=== PATIENT | female | born 1960 | race Caucasian/White ===

== ENCOUNTER 2016-06-04 17:08 | Inpatient (IN) | payer BC ==
[~2016-06-04] VITALS: Ht 157.5 cm; Wt 49.9 kg
[~2016-06-04 17:08] MED LIST: CALCTAB8 PO; CYAN1000P IM; DICY10 PO; HYDR50TA94 PO; IMIP25TA PO; IMIT100T PO; MACR100C2 PO; MAGN400T2 PO; PANT40TA3 PO; POTA-163 PO; THIA200P IM; VALIUM; VITA100064 PO; VITA400C2 PO; ZOLP10TA3 PO; ZYPR5TAB PO
[2016-06-04 17:14] VITALS: BP_SYST 15; BP_SYST 154; BP_DIAS 104; PULSE 118; RESP 14; TEMP 98.8; O2SAT 91
[2016-06-04] MEDS ORDERED: SODIUM CHLOR 0.9% 1000 ML INJ 1,000 ML IV ONE ×3 (18:00→22:30)
--- NOTE | 2016-06-04 18:24 | RADRPT ---
EXAM DATE/TIME: 06/04/2016 18:06 [facility] COMPARISON: CHEST SINGLE AP, April 05, 2016, 9:58. INDICATIONS : General Weakness and Confusion. MEDICAL HISTORY : Cerebrovascular disease. Seizures. Cardiovascular disease. Kidney cancer. SURGICAL HISTORY : Appendectomy. Cholecystectomy. Hysterectomy. right nephrectomy. gastrectomy ENCOUNTER: Initial ACUITY: 1 day PAIN SCORE: 0/10 LOCATION: Bilateral chest FINDINGS: PA and lateral views of the chest demonstrate the lungs to be symmetrically aerated without evidence of mass, infiltrate or effusion. The cardiomediastinal contours are unremarkable. Osseous structure s are intact. CONCLUSION: No acute cardiopulmonary disease demonstrated. Donato Li MD on June 04, 2016 at 18:22 Board Certified Radiologist. This report was verified electronically.
--- NOTE | 2016-06-04 18:30 | RADRPT ---
EXAM DATE/TIME: 06/04/2016 18:17 [facility] COMPARISON: No previous studies available for comparison. INDICATIONS : Generalized weakness with altered mental status today. RADIATION DOSE: 32.39 CTDIvol (mGy) MEDICAL HISTORY : Cerebrovascular disease. Seizures. SURGICAL HISTORY : None. ENCOUNTER: Initial ACUITY: 1 day PAIN SCALE: 0/10 LOCATION: cranial TECHNIQUE: Multiple contiguous axial images were obtained of the head. Using automated exposure control and adj ustment of the mA and/or kV according to patient size, radiation dose was kept as low as reasonably a chievable to obtain optimal diagnostic quality images. FINDINGS: CEREBRUM: The ventricles are normal for age. No evidence of midline shift, mass lesion, hemorrhage or acute in farction. No extra-axial fluid collections are seen. POSTERIOR FOSSA: The cerebellum and brainstem are intact. The 4th ventricle is midline. The cerebellopontine angle i s unremarkable. EXTRACRANIAL: The visualized portion of the orbits is intact. SKULL: The calvaria is intact. No evidence of skull fracture. CONCLUSION: Negative noncontrast head CT. Donato Li MD on June 04, 2016 at 18:28 Board Certified Radiologist. This report was verified electronically.
[2016-06-04] MEDS ORDERED: RIZA10TA4 SL (18:48)
[2016-06-04] MEDS ORDERED: DILA4TAB2 PO (18:48)
[2016-06-04] MEDS ORDERED: BUSP1TAB PO (18:48)
[2016-06-04] MEDS ORDERED: CIPR-9 PO (18:48)
[2016-06-04] MEDS ORDERED: BUTA1CAP PO (18:48)
[2016-06-04] MEDS ORDERED: FENT25DI T-DERMAL (18:48)
[2016-06-04] MEDS ORDERED: XIFA550T4 PO (18:48)
[2016-06-04] MEDS ORDERED: DIAZ10 PO (18:48)
[2016-06-04 19:14] LABS: AUTOMATED NEUTROPHIL # 10.6 TH/MM3 (1.8-7.7); BASOPHIL % 0.1 % (0.0-2.0); HEMATOCRIT 43.3 % (35.0-46.0); HEMO FLAGS DIFF FINAL; LYMPH % 8.1 % (9.0-44.0); MEAN CELL VOLUME 89.8 FL (80.0-100.0); MEAN CORPUSCULAR HEMOGLOBIN 28.4 PG (27.0-34.0); MEAN CORPUSCULAR HGB CONC 31.6 % (32.0-36.0); MONO % 6.6 % (0.0-8.0); NEUT % 85.2 % (16.0-70.0); PLATELET COUNT 164 TH/MM3 (150-450); RED BLOOD COUNT 4.82 MIL/MM3 (4.00-5.30); RED CELL DISTRIBUTION WIDTH 18.9 % (11.6-17.2); WHITE BLOOD COUNT 12.4 TH/MM3 (4.0-11.0)
--- NOTE | 2016-06-04 19:22 | PD ---
HPI Chief Complaint: GI Complaint Time Seen by Provider: 17:37 Travel History International Travel<30 days: No Contact w/Intl Traveler<30days: No Traveled to known affect area: No History of Present Illness HPI Patient is a 56-year-old female who has been here multiple times for abdominal pain who comes in saying she is confused. Patient was here May 30, , for abdominal pain, asking for Dilaudid. She was discharged home each time without a prescription for Dilaudid. She had a CT scan performed on May 30 that showed no acute abnormalities. She had labs done on each visit that showed no acute abnormalities. Patient keeps saying she is confused and does not provide any other history. She does say Dilaudid a few times. PFSH Past Medical History Hx Anticoagulant Therapy: No Asthma: No Blood Disorders: No Anxiety: Yes Heart Rhythm Problems: No Cancer: Yes (kidney) Cardiovascular Problems: Yes ([place] ) High Cholesterol: No Chemotherapy: No Chest Pain: No Congestive Heart Failure: No COPD: No Cerebrovascular Accident: Yes Diabetes: No Diminished Hearing: No Endocrine: No Gastrointestinal Disorders: Yes GERD: Yes Genitourinary: Yes (RIGHT NEPHRECTOMY) Headaches: Yes Hypertension: No Immune Disorder: No Implanted Vascular Access Dvce: No Musculoskeletal: No Neurologic: No Psychiatric: No Reproductive: No Respiratory: No Immunizations Current: Yes Myocardial Infarction: Yes (2006) Pneumonia: Yes Radiation Therapy: No Seizures: Yes Sleep Apnea: No Thyroid Disease: No Tetanus Vaccination: < 5 Years Influenza Vaccination: Yes Menopausal: Yes : 1 Para: 1 Miscarriage: 0 : 0 Ectopic : No Ovarian Cysts: No Dilation and Curettage (D&C): Yes Tubal Ligation: Yes Past Surgical History Abdominal Surgery: Yes (total gastrectomy w/pouch 2002, hernia repair) Appendectomy: Yes Cardiac Surgery: Yes (pt states an occulator was placed in her heart 2005) Cholecystectomy: Yes Gynecologic Surgery: Yes (hysterectomy) Hysterectomy: Yes Tonsillectomy: Yes Other Surgery: Yes (right kidney removed) Social History Alcohol Use: No Tobacco Use: No Substance Use: No Allergies-Medications (Allergen,Severity, Reaction): Coded Allergies: Compazine (Verified Allergy, Severe, SOB, 06/04/16) Gadolinium Derivatives (Verified Allergy, Severe, RESPIRATORY DISTRESS, ) Lobster (Verified Allergy, Severe, Anaphylaxis, 06/04/16) Morphine (Verified Allergy, Severe, Hives, 06/04/16) PT HAVING HIVES AND ITCHING TO ARM ABOVE IV SITE AFTER ADMINISTRATION OF MORPHINE Phenergan (Verified Allergy, Severe, SOB, 06/04/16) Reglan (Verified Allergy, Severe, SOB, 06/04/16) Toradol (Verified Allergy, Severe, Shortness of Breath, 06/04/16) Zofran (Verified Allergy, Severe, SOB, 06/04/16) Penicillin (Verified Allergy, Mild, RASH, 06/04/16) Sulfa (Verified Allergy, Mild, RASH, 06/04/16) *MDRO Multi-Drug Resistant Organism (Verified Adverse Reaction, Unknown, 06/04/16) 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) Reported Meds & Prescriptions Reported Meds & Active Scripts Active Macrobid (Nitrofurantoin Monoh/Nitrofur Macro) 100 Mg Cap 100 Mg PO BID 7 Days Reported Buspirone (Buspirone HCl) 7.5 Mg Tab 7.5 Mg PO BID Xifaxan (Rifaximin) 550 Mg Tab 550 Mg PO Q8HR Valium (Diazepam) 10 Mg Tab 10 Mg PO TID Fioricet (Vkzvtgwftl-Jramsufwnahjt-Hvjbqkva) 50-300-40 Mg Cap 1 Cap PO Q4H PRN Cipro (Ciprofloxacin HCl) 500 Mg Tab 500 Mg PO BID Dilaudid (Hydromorphone HCl) 4 Mg Tab 4 Mg PO 5 TIMES A DAY Fentanyl Patch 72 HR (Fentanyl) 25 Mcg/Hr Patch 25 Mcg T-DERMAL Q72H Rizatriptan Odt (Rizatriptan Benzoate) 10 Mg Tab 10 Mg SL ONCE PRN Zyprexa (Olanzapine) 5 Mg Tab 5 Mg PO BID Cyanocobalamin Inj (Cyanocobalamin) 1,000 Mcg/Ml Inj 1,000 Mcg IM Q30D Zolpidem (Zolpidem Tartrate) 10 Mg Tab 10 Mg PO HS PRN Hydroxyzine HCl 50 Mg Tab 50 Mg PO Q8HR PRN Bentyl (Dicyclomine HCl) 10 Mg Cap 10 Mg PO TID PRN Imipramine HCL (Imipramine HCl) 25 Mg Tab 25 Mg PO HS Review of Systems ROS Limitations: Clinical Condition, Altered Mental Status Physical Exam Narrative GENERAL: Awake and alert, answers some questions. SKIN: Warm and dry. HEAD: Atraumatic. Normocephalic. EYES: Pupils equal and round. No scleral icterus. Extraocular movements intact. ENT: Mucous membranes pink and moist. NECK: Trachea midline. No JVD. CARDIOVASCULAR: Regular rate and rhythm. No murmur appreciated. RESPIRATORY: No accessory muscle use. Clear to auscultation. Breath sounds equal bilaterally. GASTROINTESTINAL: Abdomen soft, nondistended. Diffuse tenderness to palpation. MUSCULOSKELETAL: No obvious deformities. No clubbing. No cyanosis. No edema. NEUROLOGICAL: Awake and alert. No obvious cranial nerve deficits. Motor grossly within normal limits. Speaking slowly, does not respond appropriately to questions. PSYCHIATRIC: Appropriate mood and affect; insight and judgment normal. Data Data Last Documented VS Vital Signs Date Time Temp Pulse Resp B/P Pulse Ox O2 Delivery O2 Flow Rate FiO2 06/04/16 19:41 110 16 159/103 94 Room Air 06/04/16 17:14 98.8 Orders Complete Blood Count With Diff (06/04/16 17:51) Comprehensive Metabolic Panel (06/04/16 17:51) Urinalysis - C+S If Indicated (06/04/16 17:51) Lactic Acid (06/04/16 17:51) Ammonia (06/04/16 17:51) Electrocardiogram (06/04/16 ) Troponin I (06/04/16 17:51) Cath For Specimen (06/04/16 17:51) Ct Brain W/O Iv Contrast(Rout) (06/04/16 ) Chest, Pa & Lat (06/04/16 ) Sodium Chlor 0.9% 1000 Ml Inj (Ns 1000 M (06/04/16 18:00) Aspirin Chew (Aspirin Chew) (06/04/16 19:45) Heparin Infusion MIGUEL.Q1H (06/04/16 19:41) Heparin Inj (Heparin Inj) (06/04/16 19:45) Heparin Inj (Heparin Inj) (06/05/16 01:45) Heparin-D5w Inj (Heparin-D5w Inj) (06/04/16 19:45) Act Partial Throm Time (Ptt) (06/04/16 19:41) Prothrombin Time / Inr (Pt) (06/04/16 19:41) Cbc No Diff, Includes Plts (06/07/16 06:00) Act Partial Throm Time (Ptt) (06/05/16 02:41) Occult Blood (Hemoccult) Stool (06/04/16 19:41) Sodium Chlor 0.9% 1000 Ml Inj (Ns 1000 M (06/04/16 19:45) Heparin Inj (Heparin Inj) (06/05/16 01:45) Labs Laboratory Tests Test 06/04/16 19:00 White Blood Count 12.4 TH/MM3 Red Blood Count 4.82 MIL/MM3 Hemoglobin 13.7 GM/DL Hematocrit 43.3 % Mean Corpuscular Volume 89.8 FL Mean Corpuscular Hemoglobin 28.4 PG Mean Corpuscular Hemoglobin 31.6 % Concent Red Cell Distribution Width 18.9 % Platelet Count 164 TH/MM3 Mean Platelet Volume 9.2 FL Neutrophils (%) (Auto) 85.2 % Lymphocytes (%) (Auto) 8.1 % Monocytes (%) (Auto) 6.6 % Eosinophils (%) (Auto) 0.0 % Basophils (%) (Auto) 0.1 % Neutrophils # (Auto) 10.6 TH/MM3 Lymphocytes # (Auto) 1.0 TH/MM3 Monocytes # (Auto) 0.8 TH/MM3 Eosinophils # (Auto) 0.0 TH/MM3 Basophils # (Auto) 0.0 TH/MM3 CBC Comment DIFF FINAL Differential Comment Sodium Level 136 MEQ/L Potassium Level 4.6 MEQ/L Chloride Level 100 MEQ/L Carbon Dioxide Level 26.5 MEQ/L Anion Gap 10 MEQ/L Blood Urea Nitrogen 15 MG/DL Creatinine 1.21 MG/DL Estimat Glomerular Filtration 46 ML/MIN Rate Random Glucose 131 MG/DL Lactic Acid Level 2.4 mmol/L Calcium Level 8.8 MG/DL Total Bilirubin 0.2 MG/DL Aspartate Amino Transf 951 U/L (AST/SGOT) Alanine Aminotransferase 507 U/L (ALT/SGPT) Alkaline Phosphatase 120 U/L Ammonia 16 MCMOL/L Troponin I 0.91 NG/ML Total Protein 7.5 GM/DL Albumin 3.8 GM/DL [facility] Medical Decision Making Medical Screen Exam Complete: Yes Emergency Medical Condition: Yes Medical Record Reviewed: Yes Interpretation(s) ECG shows sinus tach at 109, left bundle branch block. Differential Diagnosis Sepsis versus ACS versus ICH versus drug-seeking behavior Narrative Course Patient is a 56-year-old female who says she is very confused. Exam shows no gross motor abnormalities, she is speaking slowly. IV established, labs sent. CT of the head performed shows no acute abnormalities. Chest x-ray shows no acute abnormalities. Patient given IV fluids. Troponin is 0.91. AST and ALT are elevated to 951 and 507. These are very different then 5 days ago. Patient started on Aspirin and Heparin. LBBB is old from March. Patient to be admitted for further management of NSTEMI and shock liver. Diagnosis Primary Impression: NSTEMI (non-ST elevated myocardial infarction) Additional Impression: Shock liver Admitting Information Admitting Physician Requests: Admit Condition: Stable Meera Taylor MD Jun 04, 2016 19:22
[2016-06-04 19:24] LABS: ANION GAP 10 MEQ/L (5-15); AST (GOT) 951 U/L (15-37); BICARBONATE 26.5 MEQ/L (21.0-32.0); BLOOD UREA NITROGEN 15 MG/DL (7-18); CHLORIDE 100 MEQ/L (98-107); GLOMERULAR FILTRATION RATE 46 ML/MIN (>89); POTASSIUM 4.6 MEQ/L (3.5-5.1); SODIUM (NA) 136 MEQ/L (136-145)
[2016-06-04 19:28] LABS: ALKALINE PHOSPHATASE 120 U/L (45-117); ALT (GPT) 507 U/L (10-53); TOTAL BILIRUBIN ADULT 0.2 MG/DL (0.2-1.0)
[2016-06-04 19:41] VITALS: BP 159/103; PULSE 110; RESP 16; O2SAT 94
[2016-06-04] MEDS ORDERED: HEPARIN SODIUM - IV 10,000 UNITS/10 ML VIAL IV ONE (19:45)
[2016-06-04] MEDS ORDERED: ASPIRIN 81 MG CHEW TAB CHEW ONE (19:45)
[2016-06-04 20:30] VITALS: BP 147/87; PULSE 110; RESP 18; O2SAT 96
[2016-06-04] MEDS ORDERED: VANCOMYCIN INJ 1,250 MG in SODIUM CHLOR 0.9% 250 ML INJ 250 ML IV STA (20:31)
[2016-06-04] MEDS ORDERED: metroNIDAZOLE 500 MG INJ 100 ML IV STA (20:31)
[2016-06-04 20:41] LABS: APTT (PATIENT) 25.2 SEC (24.3-30.1); INTERNATIONAL NORMALIZED RATIO 1.1 RATIO; PROTHROMBIN TIME - PATIENT 11.8 SEC (9.8-11.6)
[2016-06-04] MEDS ORDERED: AZTREONAM INJ 2,000 MG in SODIUM CHLORIDE 0.9% INJ 100 ML IV ONE (20:45)
[2016-06-04] MEDS ORDERED: IOHEXOL 350 MG/ML 10 ML VIAL (for RAD DIAG) IV ONE (21:05)
--- NOTE | 2016-06-04 21:29 | RADRPT ---
EXAM DATE/TIME: 06/04/2016 21:03 [facility] COMPARISON: CT ABDOMEN & PELVIS W/O CONTRAST, May 30, 2016, 13:06. CT ABDOMEN & PELVIS W CONTRAST, March 29, 2016, 11:14. INDICATIONS : General weakness and abdominal pain. IV CONTRAST: 80 cc Omnipaque 300 (iohexol) IV ORAL CONTRAST: No oral contrast ingested. RADIATION DOSE: 7.02 CTDIvol (mGy) MEDICAL HISTORY : Kidney cancer. SURGICAL HISTORY : Appendectomy. Cholecystectomy.Hysterectomy.Gastrectomy with pouch. ENCOUNTER: Initial ACUITY: 3 weeks PAIN SCALE: 5/10 LOCATION: Bilateral lower quadrant TECHNIQUE: Volumetric scanning of the abdomen and pelvis was performed. Using automated exposure control and ad justment of the mA and/or kV according to patient size, radiation dose was kept as low as reasonably achievable to obtain optimal diagnostic quality images. FINDINGS: The liver is diffusely fatty infiltrated. Spleen, pancreas, adrenal glands and left kidney are within normal limits. Previous right nephrectomy. No mass demonstrated. No lymphadenopathy. No obstruction or acute inflammatory changes are seen of the bowel loops. There is been previous lala l surgery. At least 2 anastomotic staple lines are seen in the left midabdomen. Mildly heterogeneous but mainly low attenuation thickening has developed of the right gluteus medius muscle, for example series 2 image 66 and series 601 image 67. This is entirely new over the past 5 d ays and presumably would be posttraumatic, such as a strain the visualized osseous structures are int act. Patchy consolidation seen of the lung bases, left more so than right and both sides modestly worse in the interim. CONCLUSION: 1. No obstruction or acute inflammatory changes demonstrated. 2. Liver is diffusely fatty infiltrated. 3. Previous right nephrectomy. No recurrent mass. No lymphadenopathy. 4. Thickened gluteus minimus muscle belly, new. This is nonspecific but appearance and short term int erim development would support likelihood of a strain. 5. Patchy consolidation of both lung bases worsening, especially on the left. Donato Li MD on June 04, 2016 at 21:21 Board Certified Radiologist. This report was verified electronically.
[2016-06-04 21:40] VITALS: BP 158/99; PULSE 100; RESP 18; O2SAT 97
[2016-06-04] MEDS: HEPARIN-D5W INJ 250 ML IV SCH (21:42)
[2016-06-04 22:15] LABS: BLOOD, URINE MOD (NEG); COMMENT (UR) CATH-CULT NOT IND; CULTURE IF INDICATED CATH CULTURE NOT IND; GLUCOSE,URINE NEG (NEG); KETONE, URINE 40 mg/dL (NEG); MUCUS URINE FEW /lpf (OCC); NITRITE,URINE NEG (NEG); SQUAMOUS EPITHELIAL CELL URINE 1 /hpf (0-5); URINE COLOR YELLOW (YELLW/STRAW)
--- NOTE | 2016-06-04 22:16 | PD ---
Data Data Last Documented VS Vital Signs Date Time Temp Pulse Resp B/P Pulse Ox O2 Delivery O2 Flow Rate FiO2 06/04/16 19:41 110 16 159/103 94 Room Air 06/04/16 17:14 98.8 Orders Complete Blood Count With Diff (06/04/16 17:51) Comprehensive Metabolic Panel (06/04/16 17:51) Urinalysis - C+S If Indicated (06/04/16 17:51) Lactic Acid (06/04/16 17:51) Ammonia (06/04/16 17:51) Electrocardiogram (06/04/16 ) Troponin I (06/04/16 17:51) Cath For Specimen (06/04/16 17:51) Ct Brain W/O Iv Contrast(Rout) (06/04/16 ) Chest, Pa & Lat (06/04/16 ) Sodium Chlor 0.9% 1000 Ml Inj (Ns 1000 M (06/04/16 18:00) Aspirin Chew (Aspirin Chew) (06/04/16 19:45) Heparin Infusion MIGUEL.Q1H (06/04/16 19:41) Heparin Inj (Heparin Inj) (06/04/16 19:45) Heparin Inj (Heparin Inj) (06/05/16 01:45) Heparin-D5w Inj (Heparin-D5w Inj) (06/04/16 19:45) Act Partial Throm Time (Ptt) (06/04/16 19:41) Prothrombin Time / Inr (Pt) (06/04/16 19:41) Cbc No Diff, Includes Plts (06/07/16 06:00) Act Partial Throm Time (Ptt) (06/05/16 02:41) Occult Blood (Hemoccult) Stool (06/04/16 19:41) Sodium Chlor 0.9% 1000 Ml Inj (Ns 1000 M (06/04/16 19:45) Heparin Inj (Heparin Inj) (06/05/16 01:45) Ct Abd/Pel W Iv Contrast(Rout) (06/04/16 20:14) Vancomycin Inj (Vancomycin Inj) (06/04/16 20:31) Metronidazole 500 Mg Inj (Flagyl 500 Mg (06/04/16 20:31) Aztreonam Inj (Azactam Inj) (06/04/16 20:45) Iohexol 350 Inj (Omnipaque 350 Inj) (06/04/16 21:05) Sodium Chlor 0.9% 1000 Ml Inj (Ns 1000 M (06/04/16 22:30) Vital Signs (Adult) Q4H (06/04/16 22:35) Activity Bed Rest With Brp (06/04/16 22:35) ^ [employer] Developer / Telemetry .CONTINUOUS (06/04/16 22:35) Sodium Chlor 0.9% 1000 Ml Inj (Ns 1000 M (06/04/16 22:35) Sodium Chloride 0.9% Flush (Ns Flush) (06/04/16 22:45) Sodium Chloride 0.9% Flush (Ns Flush) (06/05/16 09:00) Basic Metabolic Panel (Bmp) (06/05/16 06:00) Complete Blood Count With Diff (06/05/16 06:00) Creatine Kinase (Cpk) (06/05/16 01:00) Creatine Kinase (Cpk) (06/05/16 07:00) Troponin I (06/05/16 01:00) Troponin I (06/05/16 07:00) Hepatic Functional Panel (06/05/16 06:00) Electrocardiogram (06/05/16 01:00) Electrocardiogram (06/05/16 07:00) Naloxone Inj (Narcan Inj) (06/04/16 22:45) Diet Clear Liquid (06/05/16 Breakfast) Aztreonam Inj (Azactam Inj) (06/05/16 10:00) Consult Gastroenterology (06/04/16 ) Lipid Profile (06/05/16 06:00) Hepatitis Profile (06/05/16 01:00) Aspirin Ec (Ecotrin Ec) (06/05/16 09:00) Pantoprazole Inj (Protonix Inj) (06/04/16 23:00) Rifaximin (Xifaxan) (06/05/16 06:00) Lactic Acid (06/05/16 06:00) Metronidazole 500 Mg Inj (Flagyl 500 Mg (06/05/16 06:00) Tylenol (Acetaminophen) (06/04/16 22:54) Alcohol (Ethanol) (06/04/16 22:54) Drug Screen, Random Urine (06/04/16 22:54) (Hub Use Only)Inp Phy Cons/Ref (06/04/16 ) Admit Order (Ed Use Only) (06/04/16 23:00) Labs Laboratory Tests Test 06/04/16 06/04/16 06/04/16 19:00 19:50 21:30 White Blood Count 12.4 TH/MM3 Red Blood Count 4.82 MIL/MM3 Hemoglobin 13.7 GM/DL Hematocrit 43.3 % Mean Corpuscular Volume 89.8 FL Mean Corpuscular Hemoglobin 28.4 PG Mean Corpuscular Hemoglobin 31.6 % Concent Red Cell Distribution Width 18.9 % Platelet Count 164 TH/MM3 Mean Platelet Volume 9.2 FL Neutrophils (%) (Auto) 85.2 % Lymphocytes (%) (Auto) 8.1 % Monocytes (%) (Auto) 6.6 % Eosinophils (%) (Auto) 0.0 % Basophils (%) (Auto) 0.1 % Neutrophils # (Auto) 10.6 TH/MM3 Lymphocytes # (Auto) 1.0 TH/MM3 Monocytes # (Auto) 0.8 TH/MM3 Eosinophils # (Auto) 0.0 TH/MM3 Basophils # (Auto) 0.0 TH/MM3 CBC Comment DIFF FINAL Differential Comment Sodium Level 136 MEQ/L Potassium Level 4.6 MEQ/L Chloride Level 100 MEQ/L Carbon Dioxide Level 26.5 MEQ/L Anion Gap 10 MEQ/L Blood Urea Nitrogen 15 MG/DL Creatinine 1.21 MG/DL Estimat Glomerular Filtration 46 ML/MIN Rate Random Glucose 131 MG/DL Lactic Acid Level 2.4 mmol/L Calcium Level 8.8 MG/DL Total Bilirubin 0.2 MG/DL Aspartate Amino Transf 951 U/L (AST/SGOT) Alanine Aminotransferase 507 U/L (ALT/SGPT) Alkaline Phosphatase 120 U/L Ammonia 16 MCMOL/L Troponin I 0.91 NG/ML Total Protein 7.5 GM/DL Albumin 3.8 GM/DL Prothrombin Time 11.8 SEC Prothromb Time International 1.1 RATIO Ratio Activated Partial 25.2 SEC Thromboplast Time Urine Color YELLOW Urine Turbidity CLEAR Urine pH 6.0 Urine Specific Victor 1.033 Urine Protein 30 mg/dL Urine Glucose (UA) NEG mg/dL Urine Ketones 40 mg/dL Urine Occult Blood MOD Urine Nitrite NEG Urine Bilirubin NEG Urine Urobilinogen LESS THAN 2.0 MG/DL Urine Leukocyte Esterase NEG Urine RBC 10 /hpf Urine WBC 1 /hpf Urine Squamous Epithelial 1 /hpf Cells Urine Mucus FEW /lpf Microscopic Urinalysis Comment CATH-CULT NOT IND Urine Opiates Screen POS Urine Barbiturates Screen POS Urine Amphetamines Screen NEG Urine Benzodiazepines Screen POS Urine Cocaine Screen NEG Urine Cannabinoids Screen NEG MDM Medical Record Reviewed: Yes Supervised Visit with AGNES: No Narrative Course CBC & BMP Diagram 06/04/16 19:00 Neutrophils 85% Toxicology positive for opiates barbiturates and benzodiazepines AST 951 ALT of 507 Alkaline phosphatase 120 Lactic acid 2.4 Troponin 0.19 Ammonia 16 EKG reveals a sinus tachycardia with Left bundle branch block pattern similar to prior with a rate of 109 Last 24 hours Impressions Abdomen/Pelvis CT 06/04/162013 Signed Impressions: Service Date/Time: May 21:03 - CONCLUSION: 1. No obstruction or acute inflammatory changes demonstrated. 2. Liver is diffusely fatty infiltrated. 3. Previous right nephrectomy. No recurrent mass. No lymphadenopathy. 4. Thickened gluteus minimus muscle belly, new. This is nonspecific but appearance and short term interim development would support likelihood of a strain. 5. Patchy consolidation of both lung bases worsening, especially on the left. Donato Li MD Head CT 06/04/16 0000 Signed Impressions: Service Date/Time: May 18:17 - CONCLUSION: Negative noncontrast head CT. Donato Li MD Chest X-Ray 06/04/16 0000 Signed Impressions: Service Date/Time: May 18:06 - CONCLUSION: No acute cardiopulmonary disease demonstrated. Donato Li MD The case was discussed with the GI Dr Bolton at regarding markedly elevated liver enzymes. Consideration is given to shock liver. The patient does have infiltrates at the bases on CT. Flagyl Vanco and aztreonam given in setting of liver disease with leukocytosis and abdominal pain. Case discussed with Oralia Levine of [facility]. Diagnosis Primary Impression: NSTEMI (non-ST elevated myocardial infarction) Additional Impression: Shock liver Admitting Information Admitting Physician Requests: Admit Condition: Stable Noble Long MD Jun 04, 2016 22:16
[2016-06-04] MEDS ORDERED: NALOXONE HCL 0.4 MG/ML AMP IV PRN (22:45)
[2016-06-04] MEDS ORDERED: SODIUM CHLORIDE 0.9% FLUSH 5 ML FLUSH FLUSH PRN (22:45)
[2016-06-04] MEDS: SODIUM CHLOR 0.9% 1000 ML INJ 1,000 ML IV SCH (23:07)
[2016-06-04 23:16] VITALS: BP 153/93; PULSE 104; RESP 18; O2SAT 97
[2016-06-04 23:50] LABS: AMPHETAMINE, URINE NEG (NEG); BARBITURATES, URINE POS (NEG); COCAINE, URINE NEG (NEG)
[2016-06-05] VITALS (9 sets, daily range): BP systolic 139–158; BP diastolic 85–95; PULSE 89–102; RESP 16–18; TEMP 97.8–99.4; O2SAT 93–99
[2016-06-05] MEDS: PANTOPRAZOLE SODIUM 40 MG VIAL IV PUSH SCH (00:11)
[2016-06-05] MEDS ORDERED: HEPARIN SODIUM - IV 10,000 UNITS/10 ML VIAL IV PRN ×2 (01:45)
[2016-06-05 02:36] LABS: APTT (PATIENT) 42.5 SEC (24.3-30.1)
[2016-06-05] MEDS: SODIUM CHLOR 0.9% 1000 ML INJ 1,000 ML IV SCH ×3 (02:54→18:08)
[2016-06-05 04:23] LABS: CKMB 5.7 NG/ML (0.5-3.6)
[2016-06-05] MEDS ORDERED: HYDROmorphone HCL PF 1 MG/ML VIAL IV ONE (05:00)
[2016-06-05] MEDS: metroNIDAZOLE 500 MG INJ 100 ML IV SCH ×3 (05:23→22:12)
[2016-06-05] MEDS: RIFAXIMIN 550 MG TAB PO SCH ×3 (05:23→22:15)
[2016-06-05 05:43] LABS: AUTOMATED NEUTROPHIL # 9.1 TH/MM3 (1.8-7.7); BASOPHIL # 0.1 TH/MM3 (0-0.2); BASOPHIL % 0.4 % (0.0-2.0); EOSINOPHIL % 0.1 % (0.0-4.0); HEMATOCRIT 33.8 % (35.0-46.0); HEMO FLAGS DIFF FINAL; LYMPH % 16.5 % (9.0-44.0); LYMPHOCYTE # 1.9 TH/MM3 (1.0-4.8); MEAN CORPUSCULAR HEMOGLOBIN 28.5 PG (27.0-34.0); MEAN CORPUSCULAR HGB CONC 32.4 % (32.0-36.0); MONO % 5.1 % (0.0-8.0); NEUT % 77.9 % (16.0-70.0); PLATELET COUNT 129 TH/MM3 (150-450); RED BLOOD COUNT 3.84 MIL/MM3 (4.00-5.30); RED CELL DISTRIBUTION WIDTH 18.8 % (11.6-17.2); WHITE BLOOD COUNT 11.6 TH/MM3 (4.0-11.0)
[2016-06-05 06:20] LABS: BICARBONATE 25.2 MEQ/L (21.0-32.0); INDIRECT BILIRUBIN 0.2 MG/DL (0.0-0.8); POTASSIUM 3.6 MEQ/L (3.5-5.1); TOTAL BILIRUBIN ADULT 0.3 MG/DL (0.2-1.0)
[2016-06-05 08:10] LABS: ACETAMINOPHEN LESS THAN 2.0 MCG/ML (10.0-30.0); CREATINE KINASE 1974 U/L (26-192); HDL CHOLESTEROL 51.8 MG/DL (40.0-60.0); LDL CHOLESTEROL 33 MG/DL (0-99)
[2016-06-05 08:24] LABS: CKMB 5.3 NG/ML (0.5-3.6)
[2016-06-05] MEDS: ASPIRIN EC 325 MG TABEC PO SCH ×2 (09:00→09:26)
[2016-06-05] MEDS: SODIUM CHLORIDE 0.9% FLUSH 5 ML FLUSH FLUSH SCH ×2 (09:00→22:14)
[2016-06-05] MEDS: AZTREONAM INJ 1,000 MG in SODIUM CHLORIDE 0.9% INJ 100 ML IV SCH ×2 (09:26→22:12)
--- NOTE | 2016-06-05 10:13 | MB ---
cc: AGUSTÍN MARTELL MD DATE OF CONSULTATION: 06/05/2016 REASON FOR CONSULTATION: Elevated troponin. HISTORY OF PRESENT ILLNESS Ms. Alcala is a 56-year-old female who gives a reported history of multiple embolic strokes with subsequent PFO closure. She presented with abdominal pain and confusion. The patient reports that she is quite sick and has severe epigastric pain. She notes that one point at home she fell to her knees. PAST MEDICAL HISTORY: 1. Reportedly includes; 2. Anxiety 3. Renal cancer 4. Myocardial infarction - she indicates this was at the same time as her stroke and she is not aware of any further work up. 5. She also has a history of a cerebrovascular accident, right nephrectomy, gastroesophageal reflux disease. PAST SURGICAL HISTORY: 1. Past surgical history includes a gastrectomy. 2. hernia repair. 3. PFO closure 4. Hysterectomy Nephrectomy. SOCIAL HISTORY The patient does not drink or smoke. ALLERGIES COMPAZINE GADOLINIUM LOBSTER MORPHINE PHENERGAN REGLAN TORADOL ZOFRAN PENICILLIN SULFA OUTPATIENT MEDICATIONS Reportedly included 1. Buspirone 2. Rifaximin 3. Diazepam. 4. Fioricet. 5. Cipro. 6. Dilaudid 7. Fentanyl 8. Zyprexa 9. Rizatriptan 10. Zolpidem 11. Bentyl 12. Imipramine REVIEW OF SYSTEMS Except what is mentioned in the history of present illness all systems are negative. PHYSICAL EXAMINATION: VITAL SIGNS: On physical examination vital signs 98.5, 91, 16 Blood pressure 140/87. IN GENERAL: She is a thin female who is in no apparent distress. NECK: Her neck is free from jugular venous distention. LUNGS: The lungs are bilaterally clear to auscultation. CARDIOVASCULAR SYSTEM: She has a normal S1, S2, There are no murmurs, rubs or gallops. ABDOMEN: The abdomen is soft. EXTREMITIES: The extremities are free from edema. Her right knee does have some ecchymosis. LABORATORY FINDINGS Significant for a 99.21, her systems: Serial troponin was 0.91 / 0.78 / 0.57. The CPK is 2017 with an MB of 5.7 MB percent of 0.3. Her creatinine 0.73. The AST is 1088 and ALT 625. IMPRESSION 1. Elevated troponin - this essentially indeterminate troponin is in the setting of a negative CK-MB percent with what appears to be mild rabdo, might be secondary to her fall. At this point it does appear to be most consistent with mild rhabdomyolysis. I would not pursue any further cardiac workup beyond the echocardiogram to verify her ejection fraction and prior PFO closure. The left bundle branch block on ECG is old. 2. History of CVA with PFO closure - the patient will follow up echocardiogram. 3. Elevated Liver function tests - this will be managed by the primary team and presumably Gastroenterology. 4. I will be available p.r.n. if echocardiogram is essentially normal. Agustín Martell M.D. GUERO/koby /9:00 AM /9:12 AM
[2016-06-05] MEDS ORDERED: HYDROmorphone HCL PF 1 MG/ML VIAL IV PUSH ONE (10:15)
[2016-06-05 10:28] LABS: APTT (PATIENT) 46.7 SEC (24.3-30.1)
--- NOTE | 2016-06-05 10:34 | PD.CONS ---
HPI History of Present Illness This is a 56 year old female with past medical history of chronic use of Dilaudid, chronic abdominal pain, multiple abdominal surgeries, CAD, PA, who came to the ER for evaluation of confusion and was admitted for NSTEMI and possible shocked liver. Patient had multiple visits to the ER during this month and each time, she came with complaints of confusion and abdominal pain asking for Dilaudid, and each time she was discharged with out prescription for Dilaudid. She also had multiple ER visits/hospitalizations during this year and was evaluated by GI services for chronic abdominal pain. She under went EGD/ Colonoscopy (11/22/15) and this revealed s/p gastric bypass, biopsy of gastric polyp; diverticulosis in sigmoid and descending colon, retroflexed views revealed small internal hemorrhoids, external hemorrhoids. Pathology revealed mild chronic gastritis, negative for Helicobacter pylori. She continue to have abdominal discomfort, but it was much improved. She was seen by Dr. Hoover as outpatient and she was started on dicyclomine and a SBFT was ordered, but that wasn't done, recommended surgical eval for lysis of adhesion and Tertiary referral. GI services this admission consulted for possible shocked liver, she denies alcohol intake, toxicology was (+) for Opiates, barbiturates, and Benzo. AST 1088, ALt 625, ALP 98, bili normal. Hepatitis panel negative, no reported hypotension. Cardiology consulted. Patient is currently lethargic but answers all questions appropriately, continue to have diffused abdominal and back pain. Denies nausea, vomiting, diarrhea, constipation or bleeding. She does report dry heaves. She had a bladder infection 4 days ago and was placed on Bactrim for this. Patient states she had a fall recently. Labs revealed mild leukocytosis and mild anemia, elevated troponin, elevated creat. kinase. CT failed to reveal acute findings, CT of the head negative, ammonia normal. (Gordo Calloway) PFSH Past Medical History Pancreatitis once about 2 years ago Kidney cancer PA/CAD, undetected PFO Double embolic CVA, coma 7 days GERD Aspiration pneumonia Ileus Past Surgical History Fundoplication x 2 Subtotal gastrectomy G tube placement Incisional hernia repair x 2 EGD/Colonoscopy Cardiac catheterization Tonsillectomy Appendectomy Cholecystectomy Tubal ligation (Gordo Calloway) Coded Allergies: Compazine (Verified Allergy, Severe, SOB, 06/04/16) Gadolinium Derivatives (Verified Allergy, Severe, RESPIRATORY DISTRESS, ) Lobster (Verified Allergy, Severe, Anaphylaxis, 06/04/16) Morphine (Verified Allergy, Severe, Hives, 06/04/16) PT HAVING HIVES AND ITCHING TO ARM ABOVE IV SITE AFTER ADMINISTRATION OF MORPHINE Phenergan (Verified Allergy, Severe, SOB, 06/04/16) Reglan (Verified Allergy, Severe, SOB, 06/04/16) Toradol (Verified Allergy, Severe, Shortness of Breath, 06/04/16) Zofran (Verified Allergy, Severe, SOB, 06/04/16) Penicillin (Verified Allergy, Mild, RASH, 06/04/16) Sulfa (Verified Allergy, Mild, RASH, 06/04/16) *MDRO Multi-Drug Resistant Organism (Verified Adverse Reaction, Unknown, 06/04/16) 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) Medications Current Medications Medications (Trade) Dose Ordered Sig/Davin Route Start Time Stop Time Status Last Admin (Heparin Inj) 5,000 units UNSCH PRN IV 06/05/16 01:45 Heparin Sodium (Porcine) 2500 units 2,500 units UNSCH PRN IV 06/05/16 01:45 Heparin Sodium/ Dextrose 250 ml @ 0 mls/hr TITRATE IV 06/04/16 19:45 06/04/16 21:42 (NS 1000 ml Inj) 1,000 ml @ 100 mls/hr Q10H IV 06/04/16 22:35 06/05/16 09:27 (NS Flush) 2 ml UNSCH PRN FLUSH 06/04/16 22:45 (NS Flush) 2 ml BID FLUSH 06/05/16 09:00 Naloxone HCl 0.4 mg 0.4 mg UNSCH PRN IV 06/04/16 22:45 (Azactam Inj/NS Inj) 100 ml @ 200 mls/hr Q12H IV 06/05/16 10:00 06/05/16 09:26 (Ecotrin Ec) 325 mg DAILY PO 06/05/16 09:00 (Protonix Inj) 40 mg Q24H IV PUSH 06/04/16 23:00 06/05/16 00:11 Rifaximin 550 mg 550 mg Q8HR PO 06/05/16 06:00 06/05/16 05:23 (Flagyl 500 Mg Inj) 100 ml @ 100 mls/hr Q8H IV 06/05/16 06:00 06/05/16 05:23 Family History Both parents had COPD, Mother also had MS. Social History No tobacco. No ETOH No illicit drug use. (Gordo Calloway) Review of Systems Constitutional: COMPLAINS OF: Fatigue, Chills, DENIES: Fever Endocrine: DENIES: Polyuria Eyes: DENIES: Double Vision Ears, nose, mouth, throat: DENIES: Hoarseness Respiratory: DENIES: Shortness of breath Cardiovascular: DENIES: Lower Extremity Edema Gastrointestinal: COMPLAINS OF: Abdominal pain, DENIES: Black stools, Bloody stools, Constipation, Diarrhea, Nausea, Vomiting, Difficulty Swallowing, Anorexia, Odynophagia, Swelling of Abdomen, Heartburn, Hematemesis Genitourinary: DENIES: Hematuria Musculoskeletal: COMPLAINS OF: Back pain Integumentary: DENIES: Jaundice Hematologic/lymphatic: DENIES: Bruising Immunologic/allergic: DENIES: Eczema Neurologic: DENIES: Abnormal gait Psychiatric: COMPLAINS OF: Confusion, DENIES: Anxiety (Gordo Calloway) GI Exam Vitals I&O Vital Signs Date Time Temp Pulse Resp B/P Pulse Ox O2 Delivery O2 Flow Rate FiO2 06/05/16 08:00 98.5 91 16 140/87 95 06/05/16 05:08 99.4 93 16 144/87 99 06/05/16 04:19 Room Air 06/05/16 02:20 93 06/05/16 01:20 97.8 96 16 147/85 97 06/05/16 00:59 96 18 156/95 97 06/04/16 23:16 104 18 153/93 97 Room Air 06/04/16 21:40 100 18 158/99 97 Room Air 06/04/16 20:30 110 18 147/87 96 Room Air 06/04/16 19:41 110 16 159/103 94 Room Air 06/04/16 17:14 98.8 118 14 154/104 91 I/O 06/04/16 06/04/16 06/04/16 06/05/16 06/05/16 06/05/16 06:59 14:59 22:59 06:59 14:59 22:59 Intake Total 299 ml Output Total 300 ml Balance -1 ml Intake Oral 240 ml IV Total 59 ml Output Urine Total 300 ml # Bowel Movements 0 Imaging Last Impressions Abdomen/Pelvis CT 06/04/162013 Signed Impressions: Service Date/Time: May 21:03 - CONCLUSION: 1. No obstruction or acute inflammatory changes demonstrated. 2. Liver is diffusely fatty infiltrated. 3. Previous right nephrectomy. No recurrent mass. No lymphadenopathy. 4. Thickened gluteus minimus muscle belly, new. This is nonspecific but appearance and short term interim development would support likelihood of a strain. 5. Patchy consolidation of both lung bases worsening, especially on the left. Donato Li MD Head CT 06/04/16 0000 Signed Impressions: Service Date/Time: May 18:17 - CONCLUSION: Negative noncontrast head CT. Donato Li MD Chest X-Ray 06/04/16 0000 Signed Impressions: Service Date/Time: May 18:06 - CONCLUSION: No acute cardiopulmonary disease demonstrated. Donato Li MD Laboratory Test 06/04/16 06/04/16 06/04/16 06/05/16 19:00 19:50 21:30 02:12 White Blood Count 12.4 TH/MM3 Red Blood Count 4.82 MIL/MM3 Hemoglobin 13.7 GM/DL Hematocrit 43.3 % Mean Corpuscular Volume 89.8 FL Mean Corpuscular Hemoglobin 28.4 PG Mean Corpuscular Hemoglobin 31.6 % Concent Red Cell Distribution Width 18.9 % Platelet Count 164 TH/MM3 Mean Platelet Volume 9.2 FL Neutrophils (%) (Auto) 85.2 % Lymphocytes (%) (Auto) 8.1 % Monocytes (%) (Auto) 6.6 % Eosinophils (%) (Auto) 0.0 % Basophils (%) (Auto) 0.1 % Neutrophils # (Auto) 10.6 TH/MM3 Lymphocytes # (Auto) 1.0 TH/MM3 Monocytes # (Auto) 0.8 TH/MM3 Eosinophils # (Auto) 0.0 TH/MM3 Basophils # (Auto) 0.0 TH/MM3 CBC Comment DIFF FINAL Differential Comment Sodium Level 136 MEQ/L Potassium Level 4.6 MEQ/L Chloride Level 100 MEQ/L Carbon Dioxide Level 26.5 MEQ/L Anion Gap 10 MEQ/L Blood Urea Nitrogen 15 MG/DL Creatinine 1.21 MG/DL Estimat Glomerular Filtration 46 ML/MIN Rate Random Glucose 131 MG/DL Lactic Acid Level 2.4 mmol/L Calcium Level 8.8 MG/DL Total Bilirubin 0.2 MG/DL Aspartate Amino Transf 951 U/L (AST/SGOT) Alanine Aminotransferase 507 U/L (ALT/SGPT) Alkaline Phosphatase 120 U/L Ammonia 16 MCMOL/L Troponin I 0.91 NG/ML Total Protein 7.5 GM/DL Albumin 3.8 GM/DL Prothrombin Time 11.8 SEC Prothromb Time International 1.1 RATIO Ratio Activated Partial 25.2 SEC 42.5 SEC Thromboplast Time Urine Color YELLOW Urine Turbidity CLEAR Urine pH 6.0 Urine Specific [place] 1.033 Urine Protein 30 mg/dL Urine Glucose (UA) NEG mg/dL Urine Ketones 40 mg/dL Urine Occult Blood MOD Urine Nitrite NEG Urine Bilirubin NEG Urine Urobilinogen LESS THAN 2.0 MG/DL Urine Leukocyte Esterase NEG Urine RBC 10 /hpf Urine WBC 1 /hpf Urine Squamous Epithelial 1 /hpf Cells Urine Mucus FEW /lpf Microscopic Urinalysis Comment CATH-CULT NOT IND Urine Opiates Screen POS Urine Barbiturates Screen POS Urine Amphetamines Screen NEG Urine Benzodiazepines Screen POS Urine Cocaine Screen NEG Urine Cannabinoids Screen NEG Test 06/05/16 06/05/16 06/05/16 03:17 05:32 07:03 Total Creatine Kinase 2017 U/L 1974 U/L Creatine Kinase MB 5.7 NG/ML 5.3 NG/ML Creatine Kinase MB % 0.3 % 0.3 % Troponin I 0.78 NG/ML 0.58 NG/ML White Blood Count 11.6 TH/MM3 Red Blood Count 3.84 MIL/MM3 Hemoglobin 10.9 GM/DL Hematocrit 33.8 % Mean Corpuscular Volume 88.0 FL Mean Corpuscular Hemoglobin 28.5 PG Mean Corpuscular Hemoglobin 32.4 % Concent Red Cell Distribution Width 18.8 % Platelet Count 129 TH/MM3 Mean Platelet Volume 9.7 FL Neutrophils (%) (Auto) 77.9 % Lymphocytes (%) (Auto) 16.5 % Monocytes (%) (Auto) 5.1 % Eosinophils (%) (Auto) 0.1 % Basophils (%) (Auto) 0.4 % Neutrophils # (Auto) 9.1 TH/MM3 Lymphocytes # (Auto) 1.9 TH/MM3 Monocytes # (Auto) 0.6 TH/MM3 Eosinophils # (Auto) 0.0 TH/MM3 Basophils # (Auto) 0.1 TH/MM3 CBC Comment DIFF FINAL Differential Comment Sodium Level 139 MEQ/L Potassium Level 3.6 MEQ/L Chloride Level 103 MEQ/L Carbon Dioxide Level 25.2 MEQ/L Anion Gap 11 MEQ/L Blood Urea Nitrogen 10 MG/DL Creatinine 0.73 MG/DL Estimat Glomerular Filtration 82 ML/MIN Rate Random Glucose 121 MG/DL Lactic Acid Level 1.1 mmol/L Calcium Level 8.0 MG/DL Total Bilirubin 0.3 MG/DL Direct Bilirubin 0.1 MG/DL Indirect Bilirubin 0.2 MG/DL Aspartate Amino Transf 1088 U/L (AST/SGOT) Alanine Aminotransferase 625 U/L (ALT/SGPT) Alkaline Phosphatase 98 U/L Total Protein 6.4 GM/DL Albumin 3.1 GM/DL Triglycerides Level 62 MG/DL Cholesterol Level 97 MG/DL LDL Cholesterol 33 MG/DL HDL Cholesterol 51.8 MG/DL Cholesterol/HDL Ratio 1.87 RATIO Acetaminophen Level LESS THAN 2.0 MCG/ML Ethyl Alcohol Level LESS THAN 3 MG/DL Physical Examination HEENT: normocephalic; atraumatic; no jaundice. Throat is clear. NECK: Neck is supple, no JVD, no lymphadenopathy. CHEST: Chest is clear to auscultation and percussion. CARDIAC: Regular rate and rhythm with no murmur gallop or rubs. ABDOMEN: Soft, nondistended, diffused tenderness; no hepatosplenomegaly; bowel sounds are present in all four quadrants. EXTREMITIES: No clubbing, cyanosis, or edema. SKIN: Normal; no rash; no jaundice. CORE SHAPER SIDES: Lethargic ; alert and oriented times three. (Gordo Calloway) Assessment and Plan Plan - Shocked liver- patient was admitted for NSTEMI and confusion, cardiology consulted. she denies alcohol intake, toxicology was (+) for Opiates, barbiturates, and Benzo. AST 1088, ALt 625, ALP 98, bili normal. Hepatitis panel negative, no reported hypotension. Cardiology consulted. Patient is currently lethargic but answers all questions appropriately, continue to have diffused abdominal and back pain. Denies nausea, vomiting, diarrhea, constipation or bleeding. States she had a bladder infection 4 days ago and was placed on Bactrim for this. Patient states she had a fall recently. Labs revealed mild leukocytosis and mild anemia, elevated troponin. CT failed to reveal acute findings, CT of the head negative No hypotensive episodes reported, this could be due to rhabdomyolysis, shocked liver, or medication induced - Chronic abdominal pain- During her last hospitalization, she was evaluated with EGD/Colonoscopy (11/22/15) and this revealed s/p gastric bypass, biopsy of gastric polyp; diverticulosis in sigmoid and descending colon, retroflexed views revealed small internal hemorrhoids, external hemorrhoids. Pathology revealed mild chronic gastritis, negative for Helicobacter pylori. She continue to have abdominal discomfort, but it was much improved. She was seen by Dr. Hoover as outpatient and she was started on dicyclomine and a SBFT was ordered, but that wasn't done, recommended surgical eval for lysis of adhesion and Tertiary referral. - ? rhabdomyolysis- creat kinase 2017, recent fall - Confusion- ammonia normal, Ct of the head negative - NSTEMI- cardiology on the case - History of CVA Plan: - clear liquids - VICKY, ASMA, AMA, ceruloplasmin, alpha 1 antitrypsin deficiency, celiac, iron and ferritin - LFTs in the am - Avoid hepatotoxic meds - Supportive care - Patient seen and examined by Dr. Bolton and myself and this note is written on his behalf. (Gordo Calloway) Physician Comments Seen and examined, plan as above, likely shocked liver, will role out other causes for acute increase in liver enzymes ( transaminitis) (Jean Carlos Bolton MD) Gordo Calloway Jun 05, 2016 10:34 Jean Carlos Bolton MD Jun 05, 2016 15:19
--- NOTE | 2016-06-05 10:55 | MH ---
cc: SANDRO REAVES M.D., [facility] DATE OF ADMISSION: 06/04/2016 Primary care doctor, Dr. Stacey huynh. PRESENTING COMPLAINT Abdominal pain. HISTORY OF PRESENT ILLNESS The patient is a 56-year-old female who has visited the emergency room multiple times earlier in the week. The patient was in the emergency department on May 30, and for abdominal pain, asking for Dilaudid. She was discharged each time without a prescription for Dilaudid. Lab work was done on her initial visit on May 30 and was found to have a normal WBC count, LFTs were normal, only evidence of urinary tract infection was seen for which the patient was prescribed Bactrim and was discharged to home. Cultures later grew Klebsiella which was resistant to nitrofurantoin. Subsequently, the patient came into the ER on the and 01 of June but no lab work was done. The patient came back to the emergency room on June 04, 2016 with worsening abdominal pain and complaining of disorientation and confusion. Work-up showed at this point abnormal LFTs, elevated troponin and elevated creatinine. Also, with evidence of some leukocytosis. The patient was admitted for further evaluation. At this point the patient denies any vomiting or diarrhea. She does report having had dry heaves. She is still complaining of abdominal pain, periumbilical, is not able to differentiate or give any more details about the nature or character of the pain. The patient also says her chest feels unusual, however, she cannot say it is pain. This has been going on for the last 24 hours. She denies any documented fever but complains of feeling cold and chilly. No cough. No burning in the urine. No diarrhea. The review of systems is otherwise completely negative. PAST MEDICAL HISTORY 1. Kidney cancer. 2. History of CVA, not on any anticoagulation at this point. 3. History of GI disorder, severe gastroesophageal reflux disease. 4. Chronic headaches. 5. History of myocardial infarction in 2005. 6. Pneumonias. PAST SURGICAL HISTORY 1. Total gastrectomy with pouch in 2002. 2. Hernia repair. 3. Appendectomy. 4. Tubal ligation. 5. Tonsillectomy. 6. Right kidney removed, reports renal cell cancer. 7. The patient also had some kind of heart surgery in 2005, however, she is unable to specify any more details. ALLERGIES THE PATIENT HAS A LONG ALLERGY LIST INCLUDING BUT NOT LIMITED TO: 1. COMPAZINE. 2. GADOLINIUM. 3. LOBSTER. 4. MORPHINE. 5. PHENERGAN. 6. REGLAN. 7. TORADOL. 8. ZOFRAN. 9. PENICILLIN. 10. SULFA. MEDICATIONS Current medications at home include: 1. Valium 10 mg p.o. t.i.d. 2. Fioricet 300/40, one capsule p.o. q.4h. p.r.n. 3. Cipro 500 mg p.o. b.i.d. 4. Dilaudid 4 mg tablet p.o. five times a day. 5. Fentanyl patch 25 mcg per hour q.72 hours. 6. Rizatriptan 10 mg tablet sublingual once p.r.n. 7. Olanzapine 5 mg p.o. b.i.d. 8. Cyanocobalamin injections 1000 mcg every month. 9. Ambien 10 mg tablet p.o. q.h.s. p.r.n. 10. Hydroxyzine 50 mg p.o. q.8h. p.r.n. for nausea. 11. Bentyl 10 mg capsule p.o. t.i.d. p.r.n. 12. Imipramine 25 mg tablet p.o. q.h.s. 13. , BuSpar and rifaximin, but the patient is not sure she takes those medications. REVIEW OF SYSTEMS The patient states she is disoriented, however, she is awake, alert and oriented, was able to give complete details and specifics of her history. 14 systems were reviewed and otherwise negative except as mentioned in the HPI. PHYSICAL EXAMINATION VITAL SIGNS: Temperature 98.5, pulse 91, respiratory rate 16, systolic blood pressure 140, diastolic 81. She is satting 95% on room air. GENERAL: The patient is a petite female lying in bed, does appear malnourished. She is awake, alert, oriented, answering all the questions. HEENT: Atraumatic, normocephalic. Pupils are round and reactive. No scleral icterus. No conjunctival injection. Oral mucosa is moist. NECK: Supple, nontender. No JVD. HEART: S1, S2, regular. No gallop, murmur or rub. LUNGS: Bilateral air entry. Clear to auscultation. No rales, wheezes or rhonchi. ABDOMEN: Positive bowel sounds. Soft. The patient has diffuse tenderness to palpation, however, there is no rebound. EXTREMITIES: No obvious deformity. No clubbing, cyanosis or edema. NEUROLOGIC: She is awake, alert, oriented x3. No cranial deficits are seen. No focal neurological deficits. Speaking slowly but able to answer all questions. PSYCHIATRIC: Appropriate. LABORATORY DATA Pertinent lab investigations show a WBC count of 11.6, hemoglobin 10.9, hematocrit 33.8, platelet count 129. Chemistries show sodium 139, potassium 3.6, chloride 103, bicarb 25.2, creatinine 2.73, BUN 10, glucose 121, calcium 8.0. AST 1088 which is elevated from admission of 951. Admission ALT 507, now up to 625. Admission alk phos 120, now down to 98. Total CK on admission 2017, now down to 1974. Troponin 0.78 on admission down to 0.58. Albumin is low at 3.1. Triglycerides 62, cholesterol 97, LDL 33, HDL 51.8. Toxicology is positive for urinary opioids, barbiturate and benzodiazepines. Urine has some hematuria but otherwise negative. Hepatitis serologies are pending. IMAGING STUDIES CT scan of the abdomen and pelvis done in the emergency room showed no acute obstruction or inflammatory changes. The liver is diffusely infiltrated with fat. Previous right nephrectomy, no recurrent mass. No lymphadenopathy. Possible strain of the gluteus minimus. Chest x-ray was negative for any acute disease. Head CT scan was negative. DIAGNOSTIC IMPRESSION 1. Abdominal pain, etiology unknown. 2. Abnormal LFTs/acute hepatitis, question etiology. 3. [id number] [place], question chest pain. 4. Chronic pain. 5. Leukocytosis with recent UTI. 6. History of gastroesophageal reflux disease. 7. Questionable history of CVA and coronary artery disease; the patient is not on any medications for that. PLAN 1. The patient is admitted to the hospital under the care of Dr. Julio. 2. GI is consulted and has seen the patient. 3. Cardiology has also seen the patient. 4. Echocardiogram is pending. The patient is currently on IV heparin. We will continue to check the troponins. 5. The patient is asking for more Dilaudid. Will give 0.5 mg IV x1, and then will verify her home medications, from the pain management clinic and her . 6. Monitor LFTs. 7. Hepatitis serologies are pending. 8. The patient is on broad-spectrum antibiotics including Azactam and Flagyl. Can possibly discontinue Azactam and switch to Levaquin or Cipro in a.m. 9. DVT prophylaxis, GI prophylaxis. The plan of care has been discussed in detail with the patient and with the nursing staff. MD WILLIAM Walters/XOCHILT /10:04 AM /10:23 AM
[2016-06-05 13:24] LABS: FERRITIN 92 NG/ML (8-252); TRANSFERRIN IRON PROFILE 252 MG/DL (200-360)
--- NOTE | 2016-06-05 13:40 | EKG ---
Date Performed: 06/04/2016 Time Performed: 18:29:22 PTAGE: 56 years EKG: SINUS TACHYCARDIA LEFT BUNDLE BRANCH BLOCK ABNORMAL ECG Since PREVIOUS TRACING , no significant change noted PREVIOUS TRACIN04/05/2016 11.45 DOCTOR: Edson Miller Interpretating Date/Time 06/05/2016 13:34:16
--- NOTE | 2016-06-05 13:41 | EKG ---
Date Performed: 06/05/2016 Time Performed: 07:24:58 PTAGE: 56 years EKG: Sinus rhythm POSSIBLE LEFT ATRIAL ENLARGEMENT MARKED LEFT AXIS DEVIATION LEFT BUNDLE BRANCH BLOCK ABNORMAL ECG Si nce PREVIOUS TRACING , no significant change noted PREVIOUS TRACIN06/05/2016 02.12 DOCTOR: Edson Miller Interpretating Date/Time 06/05/2016 13:34:31
--- NOTE | 2016-06-05 13:41 | EKG ---
Date Performed: 06/05/2016 Time Performed: 02:12:32 PTAGE: 56 years EKG: Sinus rhythm Left bundle branch block Since previous tracing, no significant change noted Abnormal ECG PREVIOUS TRACING : 06/04/2016 18.29 DOCTOR: Edson Miller Interpretating Date/Time 06/05/2016 13:34:23
--- NOTE | 2016-06-05 17:25 | EC ---
Study Study Date:06/05/2016 STUDY CONCLUSIONS SUMMARY - Left ventricle: The cavity size was normal. Wall thickness was normal. Systolic function was normal. The estimated ejection fraction was in the range of 50% to 55%. Wall motion was normal; there were no regional wall motion abnormalities. - Aortic valve: Valve area: 2.84cm^2 (Vmax). - Right atrium: Stable PFO closure If LV function is below 40, please consider prescribing an ACEI or ARB or document rationale for non-use. PROCEDURE DATA STUDY STATUS: Elective. Procedure: Transthoracic echocardiography. Image quality was good. Scanning was performed from the parasternal, apical, and subcostal acoustic windows. Study completion: The patient tolerated the procedure well. Transthoracic echocardiography. M-mode, complete 2D, complete spectral Doppler, and color Doppler. Height: Height: 62in. Weight: Weight: 112.8lb. Body mass index: BMI: 20.7kg/m^2. Body surface area: BSA: 1.5m^2. Patient status: Inpatient. CARDIAC ANATOMY LEFT VENTRICLE: The cavity size was normal. Wall thickness was normal. Systolic function was normal. The estimated ejection fraction was in the range of 50% to 55%. Wall motion was normal; there were no regional wall motion abnormalities. AORTIC VALVE: Trileaflet; normal thickness leaflets. Doppler: Transvalvular velocity was within the normal range. There was no stenosis. No regurgitation. Valve area: 2.84cm^2 (Vmax). Indexed valve area: 1.89cm^2/m^2 (Vmax). AORTA: Aortic root: The aortic root was normal in size. MITRAL VALVE: Structurally normal valve. Doppler: Transvalvular velocity was within the normal range. There was no evidence for stenosis. Trace regurgitation. LEFT ATRIUM: The atrium was normal in size. RIGHT VENTRICLE: The cavity size was normal. Wall thickness was normal. PULMONIC VALVE: Doppler: Transvalvular velocity was within the normal range. There was no evidence for stenosis. No regurgitation. TRICUSPID VALVE: Structurally normal valve. Doppler: Transvalvular velocity was within the normal range. No regurgitation. PULMONARY ARTERY: The main pulmonary artery was normal-sized. Systolic pressure was within the normal range. RIGHT ATRIUM: Stable PFO closure The atrium was normal in size. PERICARDIUM: There was no pericardial effusion. SYSTEMIC VEINS: Inferior vena cava: The vessel was normal in size. Patient weight: 112.8lb _Ejection fraction:_ 65-75% _Fractional shortening:_ 32% up to 5Kg 5-11.5Kg 11.6-22.9Kg 23-45Kg 45-57Kg Aortic Root 7-13 <17 13-22 17-27 17-27 LA diam 6-13 <23 24-38 33-47 37-40 RVID 10-17 7-15 7-15 7-18 8-17 LVIDd 12-22 <32 24-38 33-47 37-40 LVPW 2-4 3-6 5-7 6-8 7-8 IVS 2-4 3-6 5-7 6-8 7-8 BASIC MEASUREMENTS ADULT NORMAL Left ventricle LV internal dimension, ED, chordal *40.9 mm 43-52 level, PLAX LV internal dimension, ES, chordal 34.7 mm 23-38 level, PLAX Fractional shortening, chordal level, *15 % >29 PLAX LV posterior wall thickness, ED 6.72 mm IVS/LVPW ratio, ED *1.58 <1.3 Ventricular septum Septal thickness, ED 10.6 mm Aortic valve Leaflet separation 18 mm 15-26 Right ventricle RV internal dimension, ED, PLAX 22.4 mm 19-38 BASIC MEASUREMENTS ADULT NORMAL Aortic valve Leaflet separation 18 mm 15-26 Aorta Root diameter, ED 26 mm 20-37 Left atrium Anterior-posterior dimension, ES 24 mm 19-40 Anterior-posterior dimension index, ES 1.6 cm/m^2 <2.2 LA/aortic root ratio 0.92 DOPPLER MEASUREMENTS ADULT NORMAL Main pulmonary artery Pressure, S 26 mm Hg =30 Aortic valve Peak velocity, S 137 cm/s Valve area, Vmax 2.84 cm^2 Valve area index, Vmax 1.89 cm^2/m^2 Mitral valve Peak E-wave velocity 44.9 cm/s Peak A-wave velocity 99.2 cm/s Deceleration time *109 ms 150-230 Peak E/A ratio 0.5 Maximal regurgitant velocity 279 cm/s Tricuspid valve Regurgitant peak velocity 231 cm/s Peak RV-RA gradient, S 21 mm Hg Maximal regurgitant velocity 231 cm/s Systemic veins Estimated CVP 10 mm Hg Right ventricle RV pressure, S *31 mm Hg <30 Pulmonic valve Peak velocity, S 117 cm/s LEGEND: Mean values are shown as u=mean value. Asterisk (*) britt values outside specified normal range. Prepared and signed by Giselle Conti [id number]
[2016-06-05] MEDS: HYDROmorphone HCL PF 2 MG/ML VIAL IV PRN (19:09)
[2016-06-05] MEDS: HEPARIN-D5W INJ 250 ML IV SCH (22:24)
[2016-06-06] VITALS (8 sets, daily range): BP systolic 134–163; BP diastolic 87–98; PULSE 71–107; RESP 16–19; TEMP 98.2–98.9; O2SAT 93–98
[2016-06-06] MEDS: PANTOPRAZOLE SODIUM 40 MG VIAL IV PUSH SCH ×2 (01:15→22:52)
[2016-06-06] MEDS: HYDROmorphone HCL PF 2 MG/ML VIAL IV PRN ×4 (01:29→19:58)
[2016-06-06] MEDS: SODIUM CHLOR 0.9% 1000 ML INJ 1,000 ML IV SCH ×2 (05:22→14:23)
[2016-06-06] MEDS: metroNIDAZOLE 500 MG INJ 100 ML IV SCH ×3 (05:22→22:51)
[2016-06-06] MEDS: RIFAXIMIN 550 MG TAB PO SCH ×3 (05:23→22:52)
[2016-06-06 06:41] LABS: AUTOMATED NEUTROPHIL # 2.6 TH/MM3 (1.8-7.7); BASOPHIL % 0.1 % (0.0-2.0); EOSINOPHIL % 0.3 % (0.0-4.0); HEMATOCRIT 30.5 % (35.0-46.0); LYMPH % 18.4 % (9.0-44.0); LYMPHOCYTE # 0.6 TH/MM3 (1.0-4.8); MEAN CELL VOLUME 86.1 FL (80.0-100.0); MEAN CORPUSCULAR HEMOGLOBIN 28.6 PG (27.0-34.0); MEAN CORPUSCULAR HGB CONC 33.2 % (32.0-36.0); MONO % 6.5 % (0.0-8.0); NEUT % 74.7 % (16.0-70.0); PLATELET COUNT 75 TH/MM3 (150-450); RED BLOOD COUNT 3.55 MIL/MM3 (4.00-5.30); RED CELL DISTRIBUTION WIDTH 18.3 % (11.6-17.2); WHITE BLOOD COUNT 3.5 TH/MM3 (4.0-11.0)
[2016-06-06 07:12] LABS: APTT (PATIENT) 38.5 SEC (24.3-30.1)
[2016-06-06 07:15] LABS: INDIRECT BILIRUBIN 0.2 MG/DL (0.0-0.8); TOTAL BILIRUBIN ADULT 0.3 MG/DL (0.2-1.0)
[2016-06-06 07:19] LABS: POTASSIUM 2.8 MEQ/L (3.5-5.1)
[2016-06-06] MEDS: ASPIRIN EC 325 MG TABEC PO SCH ×2 (07:47→07:55)
[2016-06-06] MEDS: SODIUM CHLORIDE 0.9% FLUSH 5 ML FLUSH FLUSH SCH ×2 (07:48→19:59)
[2016-06-06 07:56] LABS: HEMO FLAGS AUTO DIFF
[2016-06-06 08:47] LABS: OVALOCYTES 1+ (NORMAL); PLATELET ESTIMATE SMEAR LOW (NORMAL); PLATELET MORPHOLOGY NORMAL (NORMAL); SCAN/DIFF AUTO DIFF CONFIRMED
[2016-06-06] MEDS: AZTREONAM INJ 1,000 MG in SODIUM CHLORIDE 0.9% INJ 100 ML IV SCH ×2 (11:26→22:51)
--- NOTE | 2016-06-06 12:43 | HHI.PR ---
Subjective History of Present Illness more alert less confused I am miserable "I want my pain pills" I can't live without them" No N/V ch abd pain drinking fluids / eating little better No fever or chills ' No CP or SOB offers no other c/o Vitals/Results Intake & Output 06/05/16 06/05/16 06/06/16 15:00 23:00 07:00 Intake Total 480 ml 1720 ml 2732 ml Output Total 700 ml 150 ml 200 ml Balance -220 ml 1570 ml 2532 ml Intake Oral 480 ml 720 ml 480 ml IV Total 1000 ml 2252 ml Output Urine Total 700 ml 150 ml 200 ml # Bowel Movements 0 Vital Signs Vital Signs Date Time Temp Pulse Resp B/P Pulse Ox O2 Delivery O2 Flow Rate FiO2 06/06/16 09:30 16 06/06/16 08:05 Room Air 06/06/16 08:05 82 06/06/16 08:00 98.2 81 18 155/87 93 06/06/16 04:00 98.6 86 16 162/88 94 06/06/16 00:11 98.8 91 18 162/96 98 06/05/16 20:00 Room Air 06/05/16 20:00 98.3 89 18 150/92 96 06/05/16 16:06 93 Room Air 06/05/16 16:00 98.6 97 18 158/95 99 CBC/BMP: 06/06/16 0615 06/06/16 0615 Lab Results Laboratory Tests Test 06/06/16 06:15 White Blood Count 3.5 TH/MM3 Red Blood Count 3.55 MIL/MM3 Hemoglobin 10.1 GM/DL Hematocrit 30.5 % Mean Corpuscular Volume 86.1 FL Mean Corpuscular Hemoglobin 28.6 PG Mean Corpuscular Hemoglobin 33.2 % Concent Red Cell Distribution Width 18.3 % Platelet Count 75 TH/MM3 Mean Platelet Volume 9.3 FL Neutrophils (%) (Auto) 74.7 % Lymphocytes (%) (Auto) 18.4 % Monocytes (%) (Auto) 6.5 % Eosinophils (%) (Auto) 0.3 % Basophils (%) (Auto) 0.1 % Neutrophils # (Auto) 2.6 TH/MM3 Lymphocytes # (Auto) 0.6 TH/MM3 Monocytes # (Auto) 0.2 TH/MM3 Eosinophils # (Auto) 0.0 TH/MM3 Basophils # (Auto) 0.0 TH/MM3 CBC Comment AUTO DIFF Differential Comment AUTO DIFF CONFIRMED Platelet Estimate LOW Platelet Morphology Comment NORMAL Ovalocytes 1+ Activated Partial 38.5 SEC Thromboplast Time Sodium Level 141 MEQ/L Potassium Level 2.8 MEQ/L Chloride Level 104 MEQ/L Carbon Dioxide Level 26.0 MEQ/L Anion Gap 11 MEQ/L Blood Urea Nitrogen 6 MG/DL Creatinine 0.50 MG/DL Estimat Glomerular Filtration 128 ML/MIN Rate Random Glucose 98 MG/DL Calcium Level 8.0 MG/DL Total Bilirubin 0.3 MG/DL Direct Bilirubin 0.1 MG/DL Indirect Bilirubin 0.2 MG/DL Aspartate Amino Transf 1329 U/L (AST/SGOT) Alanine Aminotransferase 1146 U/L (ALT/SGPT) Alkaline Phosphatase 77 U/L Troponin I 0.53 NG/ML Total Protein 5.2 GM/DL Albumin 2.6 GM/DL Physical Exam General General Appearance: No Acute Distress, Anxious Eyes Eye Exam: Pupils Equal, Sclera White Ears & Nose Ears & Nose Exam: Nasal Mucosa [place] Throat Throat Exam: Oral Mucosa [place] & Moist Neck Neck Exam: Neck Supple, Trachea Midline Pulmonary Resp Exam: Clear Bilaterally, Breath Sounds Equal Cardiology CV Exam: Regular, Normal Sinus Rhythm Gastrointestinal/Abdomen GI Exam: Soft, Bowel Sounds Present GI Remarks +ve tenderness . +ve voluntary guarding Integumentary Skin Exam: Warm, Dry Extremeties Extremities Exam: No Edema, Pedal Pulses Palpable Neurologic Neuro Exam: Alert, Awake, Oriented, Speech Clear, Moving All Extremities Psychiatric Psych Exam: Appropriate Responses PUD Prophylasis PUD Prophylaxis: Protonix Assessment/Plan Assessment/Plan DIAGNOSTIC IMPRESSION . ch recurring Abdominal pain, etiology unknown hx multiple abd surgeries . Acute hepatitis, question etiology. . ?? [id number] PR, . s/p fall / Rhabdomyalysis. . Chronic pain.high dose narcotic depndence . Leukocytosis with recent UTI. . History of gastroesophageal reflux disease. . Questionable history of CVA and coronary artery disease; PLAN Acute hepatiitis ?? Liver failure , could be due to medication toxicity vs rhabdomyolysis,?? shocked liver, denies alcohol intake, Urine toxicology was (+) for Opiates, barbiturates, and Benzo. LFTs rising , bili normal. Hepatitis panel negative, no reported hypotension. reportedly treated for bladder infection 4 days ago w Bactrim. CT Abd Neg for acute findings, serology for auto immune disorders [p] Minimize narcotics - Chronic abdominal pain- s/p EGD/Colonoscopy (11/22/15) and this revealed s/p gastric bypass, biopsy of gastric polyp; diverticulosis in sigmoid and descending colon, small internal hemorrhoids, external hemorrhoids. Pathology revealed mild chronic gastritis, negative for Helicobacter pylori. was started on dicyclomine and a SBFT was recommended but not done yet may need Surgical eval for lysis of adhesion ??? Tertiary referral. Minimize narcotics - possible rhabdomyolysis d/t fall - creat kinase 2017, IV hydrate , f/u CPK - Confusion- metabolic encephalopathy ammonia normal, Ct of the head negative minimize narcotics -Elevated trop card input appreciated , Dr devine is not impressed 2DEcho [p] No further intervention rec HYpokalemia replace kcl IVF f/u CPK dw PT in detail / will f/u Sravani Julio MD Jun 06, 2016 12:43
--- NOTE | 2016-06-06 14:32 | HHI.GIFU ---
Subjective Remarks C/O RUQ and epigastric pain and generalized muscle aches, having US abdomen later today (Dara Almanza) Objective Vitals I&O Vital Signs Date Time Temp Pulse Resp B/P Pulse Ox O2 Delivery O2 Flow Rate FiO2 06/06/16 12:00 98.4 95 18 154/96 98 06/06/16 09:30 16 06/06/16 08:05 Room Air 06/06/16 08:05 82 06/06/16 08:00 98.2 81 18 155/87 93 06/06/16 04:00 98.6 86 16 162/88 94 06/06/16 00:11 98.8 91 18 162/96 98 06/05/16 20:00 Room Air 06/05/16 20:00 98.3 89 18 150/92 96 06/05/16 16:06 93 Room Air 06/05/16 16:00 98.6 97 18 158/95 99 I/O 06/05/16 06/05/16 06/05/16 06/06/16 06/06/16 06/06/16 07:00 15:00 23:00 07:00 15:00 23:00 Intake Total 299 ml 480 ml 1720 ml 2732 ml Output Total 300 ml 700 ml 150 ml 200 ml Balance -1 ml -220 ml 1570 ml 2532 ml Intake Oral 240 ml 480 ml 720 ml 480 ml IV Total 59 ml 1000 ml 2252 ml Output Urine Total 300 ml 700 ml 150 ml 200 ml # Bowel Movements 0 0 Laboratory Laboratory Tests Test 06/06/16 06:15 White Blood Count 3.5 Red Blood Count 3.55 Hemoglobin 10.1 Hematocrit 30.5 Mean Corpuscular Volume 86.1 Mean Corpuscular Hemoglobin 28.6 Mean Corpuscular Hemoglobin 33.2 Concent Red Cell Distribution Width 18.3 Platelet Count 75 Mean Platelet Volume 9.3 Neutrophils (%) (Auto) 74.7 Lymphocytes (%) (Auto) 18.4 Monocytes (%) (Auto) 6.5 Eosinophils (%) (Auto) 0.3 Basophils (%) (Auto) 0.1 Neutrophils # (Auto) 2.6 Lymphocytes # (Auto) 0.6 Monocytes # (Auto) 0.2 Eosinophils # (Auto) 0.0 Basophils # (Auto) 0.0 CBC Comment AUTO DIFF Differential Comment AUTO DIFF CONFIRMED Platelet Estimate LOW Platelet Morphology Comment NORMAL Ovalocytes 1+ Activated Partial 38.5 Thromboplast Time Sodium Level 141 Potassium Level 2.8 Chloride Level 104 Carbon Dioxide Level 26.0 Anion Gap 11 Blood Urea Nitrogen 6 Creatinine 0.50 Estimat Glomerular Filtration 128 Rate Random Glucose 98 Calcium Level 8.0 Total Bilirubin 0.3 Direct Bilirubin 0.1 Indirect Bilirubin 0.2 Aspartate Amino Transf 1329 (AST/SGOT) Alanine Aminotransferase 1146 (ALT/SGPT) Alkaline Phosphatase 77 Troponin I 0.53 Total Protein 5.2 Albumin 2.6 Imaging Last 72 hours Impressions Abdomen/Pelvis CT 06/04/162013 Signed Impressions: Service Date/Time: May 21:03 - CONCLUSION: 1. No obstruction or acute inflammatory changes demonstrated. 2. Liver is diffusely fatty infiltrated. 3. Previous right nephrectomy. No recurrent mass. No lymphadenopathy. 4. Thickened gluteus minimus muscle belly, new. This is nonspecific but appearance and short term interim development would support likelihood of a strain. 5. Patchy consolidation of both lung bases worsening, especially on the left. Donato Li MD Head CT 06/04/16 0000 Signed Impressions: Service Date/Time: May 18:17 - CONCLUSION: Negative noncontrast head CT. Donato Li MD Chest X-Ray 06/04/16 0000 Signed Impressions: Service Date/Time: May 18:06 - CONCLUSION: No acute cardiopulmonary disease demonstrated. Donato Li MD Physical Exam HEENT: Pupils round and reactive to light; normocephalic; atraumatic; no jaundice. Throat is clear. NECK: Neck is supple, no JVD, no lymphadenopathy. CHEST: Chest is clear to auscultation and percussion. CARDIAC: Regular rate and rhythm with no murmur gallop or rubs. ABDOMEN: Soft, tender epigastric area; no hepatosplenomegaly; bowel sounds are present in all four quadrants. EXTREMITIES: No clubbing, cyanosis, or edema. SKIN: Normal; no rash; no jaundice. 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 (Dara Almanza) Assessment and Plan Plan - Shocked liver- patient was admitted for NSTEMI and confusion, cardiology consulted. she denies alcohol intake, toxicology was (+) for Opiates, barbiturates, and Benzo. AST 1088, ALt 625, ALP 98, bili normal. Hepatitis panel negative, no reported hypotension. Cardiology consulted. Patient is currently lethargic but answers all questions appropriately, continue to have diffused abdominal and back pain. Denies nausea, vomiting, diarrhea, constipation or bleeding. States she had a bladder infection 4 days ago and was placed on Bactrim for this. Patient states she had a fall recently. Labs revealed mild leukocytosis and mild anemia, elevated troponin. CT failed to reveal acute findings, CT of the head negative No hypotensive episodes reported, this could be due to rhabdomyolysis, shocked liver, or medication induced - Chronic abdominal pain- During her last hospitalization, she was evaluated with EGD/Colonoscopy (11/22/15) and this revealed s/p gastric bypass, biopsy of gastric polyp; diverticulosis in sigmoid and descending colon, retroflexed views revealed small internal hemorrhoids, external hemorrhoids. Pathology revealed mild chronic gastritis, negative for Helicobacter pylori. She continue to have abdominal discomfort, but it was much improved. She was seen by Dr. Hoover as outpatient and she was started on dicyclomine and a SBFT was ordered, but that wasn't done, recommended surgical eval for lysis of adhesion and Tertiary referral. - ? Rhabdomyolysis- creat kinase 2017, recent fall - Confusion- ammonia normal, Ct of the head negative - NSTEMI- cardiology on the case - History of CVA 06-06-16- Liver enzymes are higher today with AST of 1329 up from 1088, ALT 1146 up from 625, alk phos is 77. Still has generalized muscle aches, autoimmune work up is pending, continues to have epigastric pain and back pain, will have US abdomen today. Plan: - Continue clear liquids - Check results of VICKY, ASMA, AMA, ceruloplasmin, alpha 1 antitrypsin deficiency , celiac, iron and ferritin - LFTs in the am - IV fluids - CK level - US abdomen today - Avoid hepatotoxic meds - Supportive care - Patient seen and examined by Dr. Bolton and myself and this note is written on his behalf. (Dara Almanza) Physician Comments Seen and examined, plan as above, will follow up LFT and CLD workup. (Jean Carlos Bolton MD) Dara Almanza Jun 06, 2016 14:32 Jean Carlos Bolton MD Jun 07, 2016 09:45
[2016-06-06] MEDS ORDERED: POTASSIUM CHLOR 20 MEQ PREMIX 100 ML IV ONE (23:45)
[2016-06-07] VITALS (8 sets, daily range): BP systolic 147–164; BP diastolic 86–102; PULSE 64–89; RESP 17–18; TEMP 98–99.1; O2SAT 96–100
[2016-06-07] MEDS ORDERED: POTASSIUM CHLORIDE 10 MEQ CAP PO ONE (00:15)
[2016-06-07] MEDS: SODIUM CHLOR 0.9% 1000 ML INJ 1,000 ML IV SCH ×2 (00:32→17:12)
[2016-06-07] MEDS: HYDROmorphone HCL PF 2 MG/ML VIAL IV PRN ×4 (01:55→20:02)
[2016-06-07] MEDS: RIFAXIMIN 550 MG TAB PO SCH ×3 (06:00→22:33)
[2016-06-07] MEDS: metroNIDAZOLE 500 MG INJ 100 ML IV SCH ×3 (06:00→23:22)
[2016-06-07 06:58] LABS: POTASSIUM 3.4 MEQ/L (3.5-5.1)
[2016-06-07 07:06] LABS: INDIRECT BILIRUBIN 0.3 MG/DL (0.0-0.8); TOTAL BILIRUBIN ADULT 0.4 MG/DL (0.2-1.0)
[2016-06-07 07:11] LABS: HEMATOCRIT 31.2 % (35.0-46.0); MEAN CELL VOLUME 85.4 FL (80.0-100.0); MEAN CORPUSCULAR HEMOGLOBIN 28.4 PG (27.0-34.0); MEAN CORPUSCULAR HGB CONC 33.3 % (32.0-36.0); PLATELET COUNT 103 TH/MM3 (150-450); RED BLOOD COUNT 3.65 MIL/MM3 (4.00-5.30); RED CELL DISTRIBUTION WIDTH 17.9 % (11.6-17.2); REVIEW FLAG FINAL; WHITE BLOOD COUNT 3.7 TH/MM3 (4.0-11.0)
[2016-06-07 07:21] LABS: CKMB 1.3 NG/ML (0.5-3.6)
[2016-06-07] MEDS: ASPIRIN EC 325 MG TABEC PO SCH (08:12)
[2016-06-07] MEDS: SODIUM CHLORIDE 0.9% FLUSH 5 ML FLUSH FLUSH SCH ×2 (08:12→20:02)
[2016-06-07] MEDS: AZTREONAM INJ 1,000 MG in SODIUM CHLORIDE 0.9% INJ 100 ML IV SCH ×2 (10:53→22:33)
--- NOTE | 2016-06-07 12:24 | RADRPT ---
EXAM DATE/TIME: 06/07/2016 10:26 [facility] COMPARISON: CT ABDOMEN & PELVIS W CONTRAST, June 04, 2016, 21:03. INDICATIONS : Evaluate portal blood flow/ acute hepatocellular injury. MEDICAL HISTORY : Myocardial infarction. Cerebrovascular accident. GI disorder. Seizure. SURGICAL HISTORY : Appendectomy. Cholecystectomy. Hysterectomy. Gastrectomy. Hernia repair. Tonsillectomy. ENCOUNTER: Initial ACUITY: 2 days PAIN SCORE: 6/10 LOCATION: Bilateral upper quadrant MEASUREMENTS: LIVER: 16.3 cm length COMMON DUCT: 6 mm RIGHT KIDNEY: Surgically absent. SPLEEN: 11.3 cm length FINDINGS: LIVER: Mild increased echotexture without focal lesion or ductal dilatation. Hepatopedal flow in the main p ortal vein with a velocity of 16 .3 cm/s. COMMON DUCT: No intraluminal mass or stone visualized. GALLBLADDER: Cholecystectomy PANCREAS: The visualized portions are within normal limits. RIGHT KIDNEY: Nephrectomy. SPLEEN: No focal lesion. Left pleural effusion. CONCLUSION: 1. The main portal vein is patent with hepatopedal flow. 2. Left pleural effusion. 3. Mild echogenic liver parenchyma. Mike Gary MD on June 07, 2016 at 12:20 Board Certified Radiologist. This report was verified electronically.
--- NOTE | 2016-06-07 15:20 | HHI.GIFU ---
Subjective Remarks Feeling better, feels that she is mentally more clear today. Still having epigastric pain, muscle aches improving, CK trending down. LF's have are trending down.Wants to try a regular diet (Dara Almanza) Objective Vitals I&O Vital Signs Date Time Temp Pulse Resp B/P Pulse Ox O2 Delivery O2 Flow Rate FiO2 06/07/16 12:04 99.1 82 18 158/102 100 06/07/16 08:04 98.6 69 18 148/95 97 06/07/16 04:00 98.3 89 17 159/94 96 06/07/16 00:00 98.0 68 17 150/86 96 06/06/16 21:00 98.5 107 19 134/92 94 06/06/16 20:00 Room Air 06/06/16 20:00 71 06/06/16 16:08 98.9 87 18 163/98 97 I/O 06/06/16 06/06/16 06/06/16 06/07/16 06/07/16 06/07/16 07:00 15:00 23:00 07:00 15:00 23:00 Intake Total 2732 ml 240 ml 220 ml 294 ml Output Total 200 ml Balance 2532 ml 240 ml 220 ml 294 ml Intake Oral 480 ml 240 ml 220 ml 0 ml IV Total 2252 ml 294 ml Output Urine Total 200 ml # Voids 6 2 3 # Bowel Movements 0 1 Laboratory Laboratory Tests Test 06/06/16 06/07/16 16:58 04:08 Activated Partial 29.0 Thromboplast Time White Blood Count 3.7 Red Blood Count 3.65 Hemoglobin 10.4 Hematocrit 31.2 Mean Corpuscular Volume 85.4 Mean Corpuscular Hemoglobin 28.4 Mean Corpuscular Hemoglobin 33.3 Concent Red Cell Distribution Width 17.9 Platelet Count 103 Mean Platelet Volume 9.7 Potassium Level 3.4 Total Bilirubin 0.4 Direct Bilirubin 0.1 Indirect Bilirubin 0.3 Aspartate Amino Transf 644 (AST/SGOT) Alanine Aminotransferase 979 (ALT/SGPT) Alkaline Phosphatase 74 Total Creatine Kinase 630 Creatine Kinase MB 1.3 Creatine Kinase MB % 0.2 Total Protein 5.1 Albumin 2.5 Imaging Last 48 hours Impressions Liver Ultrasound 06/07/16 0000 Signed Impressions: Service Date/Time: Tuesday, June 07, 2016 10:26 - CONCLUSION: 1. The main portal vein is patent with hepatopedal flow. 2. Left pleural effusion. 3. Mild echogenic liver parenchyma. Mike Gary MD Physical Exam HEENT: Pupils round and reactive to light; normocephalic; atraumatic; no jaundice. Throat is clear. NECK: Neck is supple, no JVD, no lymphadenopathy. CHEST: Chest is clear to auscultation and percussion. CARDIAC: Regular rate and rhythm with no murmur gallop or rubs. ABDOMEN: Soft, tender epigastric area; no hepatosplenomegaly; bowel sounds are present in all four quadrants. EXTREMITIES: No clubbing, cyanosis, or edema. SKIN: Normal; no rash; no jaundice. 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 (Dara Almanza) Assessment and Plan Plan - Shocked liver- patient was admitted for NSTEMI and confusion, cardiology consulted. she denies alcohol intake, toxicology was (+) for Opiates, barbiturates, and Benzo. AST 1088, ALt 625, ALP 98, bili normal. Hepatitis panel negative, no reported hypotension. Cardiology consulted. Patient is currently lethargic but answers all questions appropriately, continue to have diffused abdominal and back pain. Denies nausea, vomiting, diarrhea, constipation or bleeding. States she had a bladder infection 4 days ago and was placed on Bactrim for this. Patient states she had a fall recently. Labs revealed mild leukocytosis and mild anemia, elevated troponin. CT failed to reveal acute findings, CT of the head negative No hypotensive episodes reported, this could be due to rhabdomyolysis, shocked liver, or medication induced - Chronic abdominal pain- During her last hospitalization, she was evaluated with EGD/Colonoscopy (11/22/15) and this revealed s/p gastric bypass, biopsy of gastric polyp; diverticulosis in sigmoid and descending colon, retroflexed views revealed small internal hemorrhoids, external hemorrhoids. Pathology revealed mild chronic gastritis, negative for Helicobacter pylori. She continue to have abdominal discomfort, but it was much improved. She was seen by Dr. Hoover as outpatient and she was started on dicyclomine and a SBFT was ordered, but that wasn't done, recommended surgical eval for lysis of adhesion and Tertiary referral. - ? Rhabdomyolysis- creat kinase 2017, recent fall - Confusion- ammonia normal, Ct of the head negative - NSTEMI- cardiology on the case - History of CVA Liver Ultrasound 06/07/16 >- CONCLUSION: 1. The main portal vein is patent with hepatopedal flow. 2. Left pleural effusion. 3. Mild echogenic liver parenchyma. 06-06-16- Liver enzymes are higher today with AST of 1329 up from 1088, ALT 1146 up from 625, alk phos is 77. Still has generalized muscle aches, autoimmune work up is pending, continues to have epigastric pain and back pain, will have US abdomen today. 06/07/16-- Liver enzymes and liver trending down, still has epigastric pain, wants to advance diet. AST is 664, ALT 979, CK down to 630. Ceruloplasmin and Alpha 1 antitrypsin levels are normal. Plan: - Advance to low fat diet - Check results of VICKY, ASMA, AMA, celiac, iron and ferritin - LFTs in the am - IV fluids - CK level - Avoid hepatotoxic meds - Supportive care - Patient seen and examined by Dr. Bolton and myself and this note is written on his behalf. (Dara Almanza) Physician Comments Seen and examined, plan as above, LFT's peaked yesterday and coming down now, will check workup labs for etiology otherwise as above. (Jean Carlos Bolton MD) Dara Almanza Jun 07, 2016 15:19 Jean Carlos Bolton MD Jun 07, 2016 16:18
--- NOTE | 2016-06-07 16:21 | HHI.PR ---
Subjective History of Present Illness asking for valium I have lot of anxiety still having abd pain / pain med are helping some No N/V ch abd pain eating better No fever or chills ' No CP or SOB offers no other c/o Vitals/Results Intake & Output 06/06/16 06/06/16 06/07/16 15:00 23:00 07:00 Intake Total 240 ml 220 ml 294 ml Balance 240 ml 220 ml 294 ml Intake Oral 240 ml 220 ml 0 ml IV Total 294 ml # Voids 6 2 3 # Bowel Movements 0 1 Vital Signs Vital Signs Date Time Temp Pulse Resp B/P Pulse Ox O2 Delivery O2 Flow Rate FiO2 06/07/16 12:04 99.1 82 18 158/102 100 06/07/16 08:04 98.6 69 18 148/95 97 06/07/16 04:00 98.3 89 17 159/94 96 06/07/16 00:00 98.0 68 17 150/86 96 06/06/16 21:00 98.5 107 19 134/92 94 06/06/16 20:00 Room Air 06/06/16 20:00 71 CBC/BMP: 06/07/16 0408 06/07/16 0408 Lab Results Laboratory Tests Test 06/06/16 06/07/16 16:58 04:08 Activated Partial 29.0 SEC Thromboplast Time White Blood Count 3.7 TH/MM3 Red Blood Count 3.65 MIL/MM3 Hemoglobin 10.4 GM/DL Hematocrit 31.2 % Mean Corpuscular Volume 85.4 FL Mean Corpuscular Hemoglobin 28.4 PG Mean Corpuscular Hemoglobin 33.3 % Concent Red Cell Distribution Width 17.9 % Platelet Count 103 TH/MM3 Mean Platelet Volume 9.7 FL Potassium Level 3.4 MEQ/L Total Bilirubin 0.4 MG/DL Direct Bilirubin 0.1 MG/DL Indirect Bilirubin 0.3 MG/DL Aspartate Amino Transf 644 U/L (AST/SGOT) Alanine Aminotransferase 979 U/L (ALT/SGPT) Alkaline Phosphatase 74 U/L Total Creatine Kinase 630 U/L Creatine Kinase MB 1.3 NG/ML Creatine Kinase MB % 0.2 % Total Protein 5.1 GM/DL Albumin 2.5 GM/DL Physical Exam General General Appearance: No Acute Distress, Anxious Eyes Eye Exam: Pupils Equal, Sclera White Ears & Nose Ears & Nose Exam: Nasal Mucosa [place] Throat Throat Exam: Oral Mucosa [place] & Moist Neck Neck Exam: Neck Supple, Trachea Midline Pulmonary Resp Exam: Clear Bilaterally, Breath Sounds Equal Cardiology CV Exam: Regular, Normal Sinus Rhythm Gastrointestinal/Abdomen GI Exam: Soft, Bowel Sounds Present GI Remarks +ve tenderness . +ve voluntary guarding Integumentary Skin Exam: Warm, Dry Extremeties Extremities Exam: No Edema, Pedal Pulses Palpable Neurologic Neuro Exam: Alert, Awake, Oriented, Speech Clear, Moving All Extremities Psychiatric Psych Exam: Appropriate Responses PUD Prophylasis PUD Prophylaxis: Protonix Assessment/Plan Assessment/Plan DIAGNOSTIC IMPRESSION . ch recurring Abdominal pain, etiology unknown hx multiple abd surgeries . Acute hepatitis, question etiology. . ?? [id number] [place], . s/p fall / Rhabdomyalysis. . Chronic pain.high dose narcotic depndence . Leukocytosis with recent UTI. . History of gastroesophageal reflux disease. . Questionable history of CVA and coronary artery disease; PLAN Acute hepatiitis ?? Liver failure , could be due to medication toxicity vs rhabdomyolysis,?? shocked liver, denies alcohol intake, Urine toxicology was (+) for Opiates, barbiturates, and Benzo. LFTs IMPROVING Hepatitis panel negative, no reported hypotension. reportedly treated for bladder infection 4 days ago w Bactrim. CT Abd Neg for acute findings, serology for auto immune disorders [p] US doppler LIVER NOTED Minimize narcotics - Chronic abdominal pain- s/p EGD/Colonoscopy (11/22/15) and this revealed s/p gastric bypass, biopsy of gastric polyp; diverticulosis in sigmoid and descending colon, small internal hemorrhoids, external hemorrhoids. Pathology revealed mild chronic gastritis, negative for Helicobacter pylori. was started on dicyclomine and a SBFT was recommended but not done yet may need Surgical eval for lysis of adhesion ??? Tertiary referral. Minimize narcotics - possible rhabdomyolysis d/t fall - creat kinase BETTER TODAY IV hydrate , f/u CPK - Confusion- RESOLVED metabolic encephalopathy ammonia normal, Ct of the head negative minimize narcotics -Elevated trop card input appreciated , Dr devine is not impressed 2DEcho PRESERVED LF EG 50 TO 55% No further intervention rec HYpokalemia replace kcl IVF f/u CPK dw PT in detail / will f/u Sravani Julio MD Jun 07, 2016 16:21
[2016-06-07] MEDS: PANTOPRAZOLE SODIUM 40 MG VIAL IV PUSH SCH (22:34)
[2016-06-08] VITALS (7 sets, daily range): BP systolic 141–174; BP diastolic 81–89; PULSE 57–72; RESP 16–20; TEMP 97–98.5; O2SAT 97–99
[2016-06-08] MEDS: ALPRAZolam 0.25 MG TAB PO PRN ×3 (00:19→18:25)
[2016-06-08] MEDS: SODIUM CHLOR 0.9% 1000 ML INJ 1,000 ML IV SCH ×2 (00:21→03:41)
[2016-06-08] MEDS: HYDROmorphone HCL 2 MG TAB PO PRN ×3 (02:15→18:25)
[2016-06-08] MEDS: RIFAXIMIN 550 MG TAB PO SCH ×3 (05:40→23:27)
[2016-06-08] MEDS: metroNIDAZOLE 500 MG INJ 100 ML IV SCH ×3 (05:40→23:17)
[2016-06-08] MEDS: SODIUM CHLORIDE 0.9% FLUSH 5 ML FLUSH FLUSH SCH ×2 (09:00→23:16)
[2016-06-08] MEDS: ASPIRIN EC 325 MG TABEC PO SCH (09:11)
[2016-06-08] MEDS: AZTREONAM INJ 1,000 MG in SODIUM CHLORIDE 0.9% INJ 100 ML IV SCH ×2 (09:11→23:17)
[2016-06-08 09:33] LABS: INDIRECT BILIRUBIN 0.2 MG/DL (0.0-0.8); TOTAL BILIRUBIN ADULT 0.4 MG/DL (0.2-1.0)
[2016-06-08 09:52] LABS: CKMB 1.5 NG/ML (0.5-3.6)
--- NOTE | 2016-06-08 11:10 | HHI.PR ---
Subjective History of Present Illness not happy w Po dilaudid , wants IV dilaudid still in lot of pain/ pain med are helping some No N/V eating better eating better No fever or chills ' No CP or SOB offers no other c/o Vitals/Results Intake & Output 06/07/16 06/07/16 06/08/16 15:00 23:00 07:00 Intake Total 0 ml 1010 ml Balance 0 ml 1010 ml Intake Oral 0 ml IV Total 1010 ml # Voids 3 3 # Bowel Movements 6 0 Vital Signs Vital Signs Date Time Temp Pulse Resp B/P Pulse Ox O2 Delivery O2 Flow Rate FiO2 06/08/16 05:06 98.3 70 18 156/89 99 06/08/16 00:31 97.0 64 18 150/81 97 06/07/16 20:49 98.6 81 18 147/88 97 06/07/16 20:05 81 06/07/16 16:04 98.8 64 18 164/99 98 06/07/16 12:04 99.1 82 18 158/102 100 CBC/BMP: 06/07/16 0408 06/07/16 0408 Lab Results Laboratory Tests Test 06/08/16 08:53 Total Bilirubin 0.4 MG/DL Direct Bilirubin 0.2 MG/DL Indirect Bilirubin 0.2 MG/DL Aspartate Amino Transf 176 U/L (AST/SGOT) Alanine Aminotransferase 647 U/L (ALT/SGPT) Alkaline Phosphatase 86 U/L Total Creatine Kinase 337 U/L Creatine Kinase MB 1.5 NG/ML Creatine Kinase MB % 0.4 % Total Protein 5.2 GM/DL Albumin 2.7 GM/DL Physical Exam General General Appearance: No Acute Distress, Anxious Eyes Eye Exam: Pupils Equal, Sclera White Ears & Nose Ears & Nose Exam: Nasal Mucosa [place] Throat Throat Exam: Oral Mucosa [place] & Moist Neck Neck Exam: Neck Supple, Trachea Midline Pulmonary Resp Exam: Clear Bilaterally, Breath Sounds Equal Cardiology CV Exam: Regular, Normal Sinus Rhythm Gastrointestinal/Abdomen GI Exam: Soft, Bowel Sounds Present GI Remarks +ve tenderness . +ve voluntary guarding Integumentary Skin Exam: Warm, Dry Extremeties Extremities Exam: No Edema, Pedal Pulses Palpable Neurologic Neuro Exam: Alert, Awake, Oriented, Speech Clear, Moving All Extremities Psychiatric Psych Exam: Appropriate Responses PUD Prophylasis PUD Prophylaxis: Protonix Assessment/Plan Assessment/Plan DIAGNOSTIC IMPRESSION . ch recurring Abdominal pain, etiology unknown hx multiple abd surgeries . Acute hepatitis, question etiology. . ?? [id number] [place], . s/p fall / Rhabdomyalysis. . Chronic pain.high dose narcotic depndence . Leukocytosis with recent UTI. . History of gastroesophageal reflux disease. . Questionable history of CVA and coronary artery disease; PLAN Acute hepatiitis ?? Liver failure , could be due to medication toxicity vs rhabdomyolysis,?? shocked liver, denies alcohol intake, Urine toxicology was (+) for Opiates, barbiturates, and Benzo. LFTs much better Hepatitis panel negative, no reported hypotension. reportedly treated for bladder infection 4 days ago w Bactrim. CT Abd Neg for acute findings, serology for auto immune disorders is still [p] US doppler LIVER NOTED Minimize narcotics - Chronic abdominal pain- s/p EGD/Colonoscopy (11/22/15) and this revealed s/p gastric bypass, biopsy of gastric polyp; diverticulosis in sigmoid and descending colon, small internal hemorrhoids, external hemorrhoids. Pathology revealed mild chronic gastritis, negative for Helicobacter pylori. may need Surgical eval for lysis of adhesion ??? Tertiary referral. cont po dilaudid 2 mg q 6 hr will give 1 dose IV dilaudid start lidocaine patch Minimize narcotics - possible rhabdomyolysis d/t fall - creat kinase BETTER TODAY IV hydrate , f/u CPK better - Confusion- RESOLVED metabolic encephalopathy ammonia normal, Ct of the head negative minimize narcotics -Elevated trop card input appreciated , Dr devine is not impressed 2DEcho PRESERVED LF EG 50 TO 55% No further intervention rec HYpokalemia replace kcl d/c IVF f/u CPK better dw PT in detail //possible d/c home in am PT eval Dr Leblanc will f/u Sravani Julio MD Jun 08, 2016 11:10
[2016-06-08] MEDS ORDERED: HYDROmorphone HCL PF 2 MG/ML VIAL IV PUSH ONE (12:45)
[2016-06-08] MEDS: LIDOCAINE HCL 5% PATCH TD SCH (12:59)
[2016-06-08] MEDS: REMOVE OLD PATCH TD SCH (23:16)
[2016-06-08] MEDS: PANTOPRAZOLE SODIUM 40 MG VIAL IV PUSH SCH (23:27)
[2016-06-09] MEDS: HYDROmorphone HCL 2 MG TAB PO PRN ×4 (00:33→19:03)
[2016-06-09 01:23] VITALS: BP 140/80; PULSE 68; RESP 16; TEMP 98; O2SAT 100
[2016-06-09] MEDS: ALPRAZolam 0.25 MG TAB PO PRN ×3 (02:56→19:03)
[2016-06-09 05:38] VITALS: BP 156/82; PULSE 65; RESP 16; TEMP 97.9; O2SAT 97
[2016-06-09] MEDS: metroNIDAZOLE 500 MG INJ 100 ML IV SCH ×3 (05:38→22:04)
[2016-06-09] MEDS: RIFAXIMIN 550 MG TAB PO SCH ×3 (05:38→22:03)
[2016-06-09 08:00] VITALS: BP 159/77; PULSE 62; RESP 16; TEMP 98.5; O2SAT 99
[2016-06-09] MEDS: LIDOCAINE HCL 5% PATCH TD SCH (08:13)
[2016-06-09] MEDS: ASPIRIN EC 325 MG TABEC PO SCH (08:13)
[2016-06-09] MEDS: AZTREONAM INJ 1,000 MG in SODIUM CHLORIDE 0.9% INJ 100 ML IV SCH ×2 (08:14→22:03)
[2016-06-09] MEDS: SODIUM CHLORIDE 0.9% FLUSH 5 ML FLUSH FLUSH SCH ×2 (08:23→22:05)
[2016-06-09 08:27] LABS: INDIRECT BILIRUBIN 0.2 MG/DL (0.0-0.8); TOTAL BILIRUBIN ADULT 0.3 MG/DL (0.2-1.0)
--- NOTE | 2016-06-09 11:17 | HHI.PR ---
Subjective Subjective Remarks abd. tenderness having diarrhea "multiple episodes" not watery per nursing, formed stools noted no fever pt. states back pain better with Lidocaine patch c/o dysuria no cp no sob overall improved but stills feels "terrible" Review of Systems Constitutional Constitutional Remarks 12 point ROS completed, negative except as noted above Vitals/Results Intake & Output 06/08/16 06/08/16 06/09/16 15:00 23:00 07:00 Intake Total 480 ml 1584 ml 240 ml Output Total 700 ml 750 ml Balance -220 ml 1584 ml -510 ml Intake Oral 480 ml 720 ml 240 ml IV Total 864 ml Output Urine Total 700 ml 750 ml # Voids 10 # Bowel Movements 1 3 0 Vital Signs Vital Signs Date Time Temp Pulse Resp B/P Pulse Ox O2 Delivery O2 Flow Rate FiO2 06/09/16 11:00 99 Room Air 06/09/16 08:00 98.5 62 16 159/77 99 06/09/16 07:45 18 06/09/16 05:38 97.9 65 16 156/82 97 06/09/16 01:23 98.0 68 16 140/80 100 06/08/16 21:07 98.3 71 16 141/89 98 06/08/16 20:22 72 06/08/16 20:22 Room Air 06/08/16 16:00 98.5 60 20 146/84 99 06/08/16 13:30 20 06/08/16 12:00 98.1 57 20 174/84 99 CBC/BMP: 06/07/16 0408 06/07/16 0408 Lab Results Laboratory Tests Test 06/09/16 07:14 Total Bilirubin 0.3 MG/DL Direct Bilirubin 0.1 MG/DL Indirect Bilirubin 0.2 MG/DL Aspartate Amino Transf 113 U/L (AST/SGOT) Alanine Aminotransferase 447 U/L (ALT/SGPT) Alkaline Phosphatase 82 U/L Total Protein 5.4 GM/DL Albumin 2.5 GM/DL Physical Exam General General Appearance: Well Developed, No Acute Distress, Anxious Eyes Eye Exam: Pupils Equal, Pupils Reactive Ears & Nose Ears & Nose Exam: Nasal Mucosa [place] Throat Throat Exam: Oral Mucosa [place] & Moist Neck Neck Exam: Neck Supple, Trachea Midline Pulmonary Resp Exam: Clear Bilaterally, Breath Sounds Equal Cardiology CV Exam: Regular, Normal Sinus Rhythm Gastrointestinal/Abdomen GI Exam: Soft, Bowel Sounds Present, Positive Bowel Movement GI Remarks diffuse tenderness Musculoskeletal MS Exam: Joints Intact Integumentary Skin Exam: Warm, Dry Extremeties Extremities Exam: No Edema, Pedal Pulses Palpable Neurologic Neuro Exam: Alert, Awake, Oriented, Speech Clear, Moving All Extremities Psychiatric Psych Exam: Appropriate Responses VTE Prophylaxis VTE Prophylaxis Device: SCDs PUD Prophylasis PUD Prophylaxis: Protonix Assessment/Plan Assessment/Plan DIAGNOSTIC IMPRESSION . ch recurring Abdominal pain, etiology unknown hx multiple abd surgeries . Acute hepatitis, question etiology. . ?? [id number] [place], . s/p fall / Rhabdomyalysis. . Chronic pain.high dose narcotic depndence . Leukocytosis with recent UTI. . History of gastroesophageal reflux disease. . Questionable history of CVA and coronary artery disease; . Thrombocytopenia, sec. shocked liver PLAN -Acute hepatiitis ?? Liver failure , could be due to medication toxicity vs rhabdomyolysis,?? shocked liver. Denies alcohol intake, Urine toxicology was (+) for Opiates, barbiturates, and Benzo. reportedly treated for bladder infection 4 days ago w Bactrim. CT Abd Neg for acute findings, LFTs improving, trending down Hepatitis panel negative, serology for auto immune disorders is still [p] appreciate GI input, work up pending no reported hypotension. Liver US done, results noted - Chronic abdominal pain- s/p EGD/Colonoscopy (11/22/15) and this revealed s/p gastric bypass, biopsy of gastric polyp; diverticulosis in sigmoid and descending colon, small internal hemorrhoids, external hemorrhoids. Pathology revealed mild chronic gastritis, negative for Helicobacter pylori. may need Surgical eval for lysis of adhesion ??? Tertiary referral. cont po dilaudid 2 mg q 6 hr Continue lidocaine patch Minimize narcotics - possible rhabdomyolysis d/t fall - creat kinase BETTER TODAY IV hydrate , f/u CPK better - Confusion- RESOLVED metabolic encephalopathy ammonia normal, Ct of the head negative minimize narcotics -Elevated trop card input appreciated , Dr devine is not impressed 2DEcho - PRESERVED LF EG 50 TO 55% No further intervention rec continue ASA C/O diarrhea, stools formed C/O dysuria, will check UA/CS poss. stop abx today Repeat LFTs in am Plan to discharge tomorrow D/W RN D/W Dr. Leblanc D/W pt. This patient was seen by myself and Dr. Leblanc, this note is written on his behalf. Leatha Levine Jun 09, 2016 11:17
[2016-06-09 12:00] VITALS: BP 164/86; PULSE 59; RESP 16; TEMP 98.4; O2SAT 98
[2016-06-09 12:28] LABS: BLOOD, URINE NEG (NEG); GLUCOSE,URINE NEG (NEG); KETONE, URINE NEG (NEG); MUCUS URINE FEW /lpf (OCC); NITRITE,URINE NEG (NEG); PH, URINE 7.5 (5.0-8.5); URINE COLOR YELLOW (YELLW/STRAW)
[2016-06-09 12:33] LABS: COMMENT (UR) CULT NOT INDICATED; CULTURE IF INDICATED CULT NOT INDICATED
[2016-06-09 16:00] VITALS: BP 162/79; PULSE 56; RESP 16; TEMP 98.4; O2SAT 100
--- NOTE | 2016-06-09 17:50 | HHI.DCPOC ---
Discharge Care Plan Diagnosis: (1) NSTEMI (non-ST elevated myocardial infarction) (2) Shock liver (3) Abdominal pain Your Health Problems Are: Anxiety Chest Pain Shortness of Breath Goals to Promote Your Health * To prevent worsening of your condition and complications * To maintain your health at the optimal level Directions to Meet Your Goals Take your medications as prescribed Follow your dietary instruction Follow activity as directed Keep your appointments as scheduled Take your immunizations and boosters as scheduled If your symptoms worsen call your PCP, if no PCP go to Urgent Care Center or Emergency Room Smoking is Dangerous to Your Health. Avoid second hand smoke Call the 24-hour hour crisis hotline for domestic abuse at Leatha Levine Jun 09, 2016 17:49
[2016-06-09 20:00] VITALS: BP 137/77; PULSE 57; PULSE 70; RESP 16; TEMP 98.5; O2SAT 98
[2016-06-09] MEDS: REMOVE OLD PATCH TD SCH (22:05)
[2016-06-10] VITALS (8 sets, daily range): BP systolic 131–158; BP diastolic 71–86; PULSE 57–89; RESP 16–18; TEMP 97.5–98.9; O2SAT 96–100
[2016-06-10] MEDS: HYDROmorphone HCL 2 MG TAB PO PRN ×4 (01:47→20:29)
[2016-06-10] MEDS: ALPRAZolam 0.25 MG TAB PO PRN ×3 (03:48→22:14)
[2016-06-10] MEDS: RIFAXIMIN 550 MG TAB PO SCH ×3 (05:33→20:29)
[2016-06-10] MEDS: metroNIDAZOLE 500 MG INJ 100 ML IV SCH (05:33)
[2016-06-10 06:18] LABS: HEMATOCRIT 30.7 % (35.0-46.0); MEAN CELL VOLUME 85.6 FL (80.0-100.0); MEAN CORPUSCULAR HEMOGLOBIN 28.9 PG (27.0-34.0); MEAN CORPUSCULAR HGB CONC 33.8 % (32.0-36.0); PLATELET COUNT 130 TH/MM3 (150-450); RED BLOOD COUNT 3.59 MIL/MM3 (4.00-5.30); RED CELL DISTRIBUTION WIDTH 17.9 % (11.6-17.2); REVIEW FLAG FINAL; WHITE BLOOD COUNT 3.6 TH/MM3 (4.0-11.0)
[2016-06-10 06:49] LABS: INDIRECT BILIRUBIN 0.2 MG/DL (0.0-0.8); TOTAL BILIRUBIN ADULT 0.3 MG/DL (0.2-1.0)
[2016-06-10] MEDS: ASPIRIN EC 325 MG TABEC PO SCH (08:12)
[2016-06-10] MEDS: LIDOCAINE HCL 5% PATCH TD SCH (08:12)
[2016-06-10] MEDS: SODIUM CHLORIDE 0.9% FLUSH 5 ML FLUSH FLUSH SCH ×2 (08:12→20:30)
[2016-06-10] MEDS: PANTOPRAZOLE SOD 40 MG DELAYED RELEASE TAB PO SCH (08:12)
[2016-06-10] MEDS ORDERED: WALKER WHEELS/F1 MIS (10:18)
--- NOTE | 2016-06-10 10:18 | HHI.PR ---
Subjective Subjective Remarks abd. tenderness, improved no diarrhea no dysuria, UA negative for infection "I don't feel safe to go home" feels poorly but doesn't want to get up and move around much states works and doesn't get out until 6pm, he works every day Doesn't want rehab but wants to stay in hospital to do PT explained that we can set up HHC with PT and SNF Review of Systems Constitutional Constitutional Remarks 12 point ROS completed, negative except as noted above Vitals/Results Intake & Output 06/09/16 06/09/16 06/10/16 14:59 22:59 06:59 Intake Total 480 ml 360 ml 350 ml Balance 480 ml 360 ml 350 ml Intake Oral 480 ml 360 ml IV Total 350 ml # Voids 2 2 3 # Bowel Movements 0 0 0 Vital Signs Vital Signs Date Time Temp Pulse Resp B/P Pulse Ox O2 Delivery O2 Flow Rate FiO2 06/10/16 08:10 Room Air 06/10/16 08:00 98.2 57 16 158/86 96 06/10/16 04:00 97.5 68 16 153/80 99 06/10/16 00:00 97.9 60 16 149/76 100 06/09/16 20:00 70 06/09/16 20:00 Room Air 06/09/16 20:00 98.5 57 16 137/77 98 06/09/16 16:00 98.4 56 16 162/79 100 06/09/16 14:28 20 06/09/16 12:00 98.4 59 16 164/86 98 06/09/16 11:00 99 Room Air CBC/BMP: 06/10/16 0536 06/07/16 0408 Lab Results Laboratory Tests Test 06/09/16 06/10/16 11:30 05:36 Urine Color YELLOW Urine Turbidity CLEAR Urine pH 7.5 Urine Specific [place] 1.009 Urine Protein NEG mg/dL Urine Glucose (UA) NEG mg/dL Urine Ketones NEG mg/dL Urine Occult Blood NEG Urine Nitrite NEG Urine Bilirubin NEG Urine Urobilinogen LESS THAN 2.0 MG/DL Urine Leukocyte Esterase NEG Urine WBC LESS THAN 1 /hpf Urine Mucus FEW /lpf Microscopic Urinalysis Comment CULT NOT INDICATED White Blood Count 3.6 TH/MM3 Red Blood Count 3.59 MIL/MM3 Hemoglobin 10.4 GM/DL Hematocrit 30.7 % Mean Corpuscular Volume 85.6 FL Mean Corpuscular Hemoglobin 28.9 PG Mean Corpuscular Hemoglobin 33.8 % Concent Red Cell Distribution Width 17.9 % Platelet Count 130 TH/MM3 Mean Platelet Volume 9.6 FL Total Bilirubin 0.3 MG/DL Direct Bilirubin 0.1 MG/DL Indirect Bilirubin 0.2 MG/DL Aspartate Amino Transf 62 U/L (AST/SGOT) Alanine Aminotransferase 341 U/L (ALT/SGPT) Alkaline Phosphatase 75 U/L Total Protein 5.4 GM/DL Albumin 2.6 GM/DL Physical Exam General General Appearance: Well Developed, No Acute Distress, Anxious Eyes Eye Exam: Pupils Equal, Pupils Reactive Ears & Nose Ears & Nose Exam: Nasal Mucosa [place] Throat Throat Exam: Oral Mucosa [place] & Moist Neck Neck Exam: Neck Supple, Trachea Midline Pulmonary Resp Exam: Clear Bilaterally, Breath Sounds Equal Cardiology CV Exam: Regular, Normal Sinus Rhythm Gastrointestinal/Abdomen GI Exam: Soft, Bowel Sounds Present, Positive Bowel Movement GI Remarks diffuse tenderness Musculoskeletal MS Exam: Joints Intact Integumentary Skin Exam: Warm, Dry Extremeties Extremities Exam: No Edema, Pedal Pulses Palpable Neurologic Neuro Exam: Alert, Awake, Oriented, Speech Clear, Moving All Extremities Psychiatric Psych Exam: Appropriate Responses VTE Prophylaxis VTE Prophylaxis Device: SCDs PUD Prophylasis PUD Prophylaxis: Protonix Assessment/Plan Assessment/Plan DIAGNOSTIC IMPRESSION . ch recurring Abdominal pain, etiology unknown hx multiple abd surgeries . Acute hepatitis, question etiology. . ?? [id number] [place], . s/p fall / Rhabdomyalysis. . Chronic pain.high dose narcotic depndence . Leukocytosis with recent UTI. . History of gastroesophageal reflux disease. . Questionable history of CVA and coronary artery disease; . Thrombocytopenia, sec. shocked liver PLAN -Acute hepatiitis ?? Liver failure , could be due to medication toxicity vs rhabdomyolysis,?? shocked liver. Denies alcohol intake, Urine toxicology was (+) for Opiates, barbiturates, and Benzo. reportedly treated for bladder infection 4 days ago w Bactrim. CT Abd Neg for acute findings, LFTs improving, trending down Hepatitis panel negative, serology for auto immune disorders is still [p] appreciate GI input, work up pending no reported hypotension. Liver US done, results noted - Chronic abdominal pain- s/p EGD/Colonoscopy (11/22/15) and this revealed s/p gastric bypass, biopsy of gastric polyp; diverticulosis in sigmoid and descending colon, small internal hemorrhoids, external hemorrhoids. Pathology revealed mild chronic gastritis, negative for Helicobacter pylori. may need Surgical eval for lysis of adhesion ??? Tertiary referral. cont po dilaudid 2 mg q 6 hr Continue lidocaine patch Minimize narcotics - possible rhabdomyolysis d/t fall - CK better resolved, off IVF - Confusion- RESOLVED metabolic encephalopathy ammonia normal, Ct of the head negative minimize narcotics overall improved. -Elevated trop card input appreciated , Dr devine is not impressed 2DEcho - PRESERVED LF EG 50 TO 55% No further intervention rec continue ASA UA neg for UTI labs reviewed, improved pt. clinically improved PT evaluated, rehab recommended, pt. doesn't want rehab but afraid of going home CM to set up HHC/PT and SNF Plan to discharge in am D/W RN D/W Dr. Leblanc D/W pt. D/W CM This patient was seen by myself and Dr. Leblanc, this note is written on his behalf. Leatha Levine Jun 10, 2016 10:18
--- NOTE | 2016-06-10 12:59 | HHI.FF ---
Face to Face Verification Diagnosis: (1) Debility (2) Abdominal pain (3) Shock liver (4) Nausea & vomiting Physical Therapy Order: Evaluate and Treat Home Health Nursing Order: Medical education Medication education-adverse effect Nursing assessment with vital signs Tong Hooker Order: To Evaluate: Support services Order: To Provide: Community services I have seen patient Gabrielle Alcala on 06/10/16. My clinical findings support the need for the requested home health care services because: Deconditioned w/ increased weakness Need for psychosocial assistance High risk of falls I certify that my clinical findings support that this patient is homebound because: Unsafe to leave home unassisted Need for psychosocial assistance Leatha Levine [facility] Jun 10, 2016 12:59
[2016-06-10] MEDS: REMOVE OLD PATCH TD SCH (20:29)
[2016-06-10 23:55] LABS: MITOCHONDRIAL ABS LESS THAN 20.0 U (())
[2016-06-11] MEDS: HYDROmorphone HCL 2 MG TAB PO PRN ×2 (03:57→10:12)
[2016-06-11 04:25] VITALS: BP 148/88; PULSE 64; RESP 18; TEMP 97.9; O2SAT 100
[2016-06-11] MEDS: RIFAXIMIN 550 MG TAB PO SCH (06:20)
[2016-06-11] MEDS: ALPRAZolam 0.25 MG TAB PO PRN (06:20)
[2016-06-11 07:57] VITALS: PULSE 55
[2016-06-11 08:00] VITALS: BP 129/71; PULSE 63; RESP 18; TEMP 98.3; O2SAT 99
[2016-06-11] MEDS: SODIUM CHLORIDE 0.9% FLUSH 5 ML FLUSH FLUSH SCH (08:51)
[2016-06-11] MEDS: LIDOCAINE HCL 5% PATCH TD SCH (08:52)
[2016-06-11] MEDS: ASPIRIN EC 325 MG TABEC PO SCH (08:52)
[2016-06-11] MEDS: PANTOPRAZOLE SOD 40 MG DELAYED RELEASE TAB PO SCH (08:52)
[2016-06-11] MEDS ORDERED: LIDO5DIS35 TD (10:01)
--- NOTE | 2016-06-11 10:03 | HHI.PR ---
Subjective Subjective Remarks feels better abd. less tender no fever no cp no sob back pain better with Lidocaine patch wants to go home with [facility] Review of Systems Constitutional Constitutional Remarks 12 point ROS completed, negative except as noted above Vitals/Results Intake & Output 06/10/16 06/10/16 06/11/16 15:00 23:00 07:00 Intake Total 722 ml 480 ml 240 ml Output Total 250 ml Balance 722 ml 230 ml 240 ml Intake Oral 720 ml 480 ml 240 ml IV Total 2 ml Output Urine Total 250 ml # Voids 2 4 # Bowel Movements 1 0 0 Vital Signs Vital Signs Date Time Temp Pulse Resp B/P Pulse Ox O2 Delivery O2 Flow Rate FiO2 06/11/16 08:00 98.3 63 18 129/71 99 06/11/16 04:25 97.9 64 18 148/88 100 06/10/16 23:48 97.9 66 18 157/81 99 06/10/16 20:13 98.1 59 18 131/78 100 06/10/16 20:00 Room Air 06/10/16 20:00 59 06/10/16 16:00 98.2 60 16 146/71 99 06/10/16 16:00 Room Air 06/10/16 12:00 98.9 89 16 139/75 97 06/10/16 12:00 Room Air CBC/BMP: 06/10/16 0536 06/07/16 0408 Physical Exam General General Appearance: Well Developed, No Acute Distress, Comfortable Eyes Eye Exam: Pupils Equal, Pupils Reactive Ears & Nose Ears & Nose Exam: Nasal Mucosa [place] Throat Throat Exam: Oral Mucosa [place] & Moist Neck Neck Exam: Neck Supple, Trachea Midline Pulmonary Resp Exam: Clear Bilaterally, Breath Sounds Equal Cardiology CV Exam: Regular, Normal Sinus Rhythm Gastrointestinal/Abdomen GI Exam: Soft, Bowel Sounds Present, Positive Bowel Movement GI Remarks diffuse tenderness Musculoskeletal MS Exam: Joints Intact Integumentary Skin Exam: Warm, Dry Extremeties Extremities Exam: No Edema, Pedal Pulses Palpable Neurologic Neuro Exam: Alert, Awake, Oriented, Speech Clear, Moving All Extremities Psychiatric Psych Exam: Appropriate Responses VTE Prophylaxis VTE Prophylaxis Device: SCDs PUD Prophylasis PUD Prophylaxis: Protonix Assessment/Plan Assessment/Plan DIAGNOSTIC IMPRESSION . ch recurring Abdominal pain, etiology unknown hx multiple abd surgeries . Acute hepatitis, question etiology. . ?? [id number] [place], . s/p fall / Rhabdomyalysis. . Chronic pain.high dose narcotic depndence . Leukocytosis with recent UTI. . History of gastroesophageal reflux disease. . Questionable history of CVA and coronary artery disease; . Thrombocytopenia, sec. shocked liver PLAN -Acute hepatiitis ?? Liver failure , could be due to medication toxicity vs rhabdomyolysis,?? shocked liver. Denies alcohol intake, Urine toxicology was (+) for Opiates, barbiturates, and Benzo. reportedly treated for bladder infection 4 days ago w Bactrim. CT Abd Neg for acute findings, LFTs improving, trending down Hepatitis panel negative, serology for auto immune disorders is still [p] appreciate GI input, work up pending no reported hypotension. Liver US done, results noted - Chronic abdominal pain- s/p EGD/Colonoscopy (11/22/15) and this revealed s/p gastric bypass, biopsy of gastric polyp; diverticulosis in sigmoid and descending colon, small internal hemorrhoids, external hemorrhoids. Pathology revealed mild chronic gastritis, negative for Helicobacter pylori. may need Surgical eval for lysis of adhesion ??? Tertiary referral. cont po dilaudid 2 mg q 6 hr Continue lidocaine patch Minimize narcotics - possible rhabdomyolysis d/t fall - CK better resolved, off IVF - Confusion- RESOLVED metabolic encephalopathy ammonia normal, Ct of the head negative minimize narcotics overall improved. -Elevated trop card input appreciated , Dr devine is not impressed 2DEcho - PRESERVED LF EG 50 TO 55% No further intervention rec continue ASA labs reviewed, improved stable for discharge Discharge today with HHC/PT F/U GI 7-10 days F/U PCP Avoid Tylenol products Diet-heart healthy Activity as tolerated D/W RN D/W Dr. Leblanc D/W pt. D/W CM This patient was seen by myself and Dr. Leblanc, this note is written on his behalf. Discharge Minutes: 45 Leatha Levine Jun 11, 2016 10:03
--- NOTE | 2016-06-11 10:04 | HHI.DS ---
Discharge Summary Admission Date Jun 04, 2016 at 23:02 Discharge Date: Jun 11, 2016 Admitting Diagnosis NSTEMI, Shock Liver (1) NSTEMI (non-ST elevated myocardial infarction) (2) Shock liver (3) Chronic narcotic dependence (4) Chronic pain (5) Abdominal pain (6) Debility (7) Nausea & vomiting (8) History of fundoplication (9) CAD (coronary artery disease) (10) GERD (gastroesophageal reflux disease) (11) poss. ileus vs bowel obstruction (12) Epigastric pain (13) History of gastrectomy (14) History of CVA (cerebrovascular accident) (15) Hx of hiatal hernia (16) Hx of renal cell cancer (17) hx right nephrectomy CBC/BMP: 06/10/16 0536 06/07/16 0408 Significant Findings Laboratory Tests Test 06/09/16 06/09/16 06/10/16 07:14 11:30 05:36 Aspartate Amino Transf 113 U/L (15-37) 62 U/L (15-37) (AST/SGOT) Alanine Aminotransferase 447 U/L (10-53) 341 U/L (10-53) (ALT/SGPT) Total Protein 5.4 GM/DL 5.4 GM/DL (6.4-8.2) (6.4-8.2) Albumin 2.5 GM/DL 2.6 GM/DL (3.4-5.0) (3.4-5.0) Urine Mucus FEW /lpf (OCC) White Blood Count 3.6 TH/MM3 (4.0-11.0) Red Blood Count 3.59 MIL/MM3 (4.00-5.30) Hemoglobin 10.4 GM/DL (11.6-15.3) Hematocrit 30.7 % (35.0-46.0) Red Cell Distribution Width 17.9 % (11.6-17.2) Platelet Count 130 TH/MM3 (150-450) Imaging Last Impressions Liver Ultrasound 06/07/16 0000 Signed Impressions: Service Date/Time: Tuesday, June 07, 2016 10:26 - CONCLUSION: 1. The main portal vein is patent with hepatopedal flow. 2. Left pleural effusion. 3. Mild echogenic liver parenchyma. Mike Gary MD Abdomen/Pelvis CT 06/04/162013 Signed Impressions: Service Date/Time: May 21:03 - CONCLUSION: 1. No obstruction or acute inflammatory changes demonstrated. 2. Liver is diffusely fatty infiltrated. 3. Previous right nephrectomy. No recurrent mass. No lymphadenopathy. 4. Thickened gluteus minimus muscle belly, new. This is nonspecific but appearance and short term interim development would support likelihood of a strain. 5. Patchy consolidation of both lung bases worsening, especially on the left. Donato Li MD Head CT 06/04/16 Signed Impressions: Service Date/Time: May 18:17 - CONCLUSION: Negative noncontrast head CT. Donato Li MD Chest X-Ray 06/04/16 Signed Impressions: Service Date/Time: May 18:06 - CONCLUSION: No acute cardiopulmonary disease demonstrated. Donato Li MD Pt Condition on Discharge: Stable Discharge Disposition: Disch w/ Home Health Serv Discharge Instructions DIET: Follow Instructions for: Heart Healthy Diet Activities you can perform: Weight Bearing as Marcella Follow up Referrals: Gastroenterology - 2 Weeks with Siobhan Charles MD New Medications: Walker with Front Wheels (Walker with Front Wheels) 1 Mis Mis 1 EA .ROUTE DIRECTED #1 Ref 0 EA Lidocaine Patch 12 HR (Lidoderm Patch 12 HR) 5% Patch 1 PATCH TD DAILY back pain #7 Ref 0 PATCH Continued Medications: Buspirone (Buspirone) 7.5 Mg Tab 7.5 MG PO BID Anxiety Ref 0 TAB Cyanocobalamin Inj (Cyanocobalamin Inj) 1,000 Mcg/Ml Inj 1000 MCG IM Q30D #1 Ref 0 VIAL Diazepam (Valium) 10 Mg Tab 10 MG PO TID Ref 0 TAB Dicyclomine (Bentyl) 10 Mg Cap 10 MG PO TID PRN CRAMPS Ref 0 CAP Fentanyl Patch 72 HR (Fentanyl Patch 72 HR) 25 Mcg/Hr Patch 25 MCG T-DERMAL Q72H Pain Management #10 Ref 0 PATCH Hydromorphone (Dilaudid) 4 Mg Tab 4 MG PO 5 TIMES A DAY Pain Management Ref 0 TAB Hydroxyzine HCl (Hydroxyzine HCl) 50 Mg Tab 50 MG PO Q8HR PRN ITCHING Ref 0 TAB Imipramine HCL (Imipramine HCL) 25 Mg Tab 25 MG PO HS Control Depression Ref 0 TAB Olanzapine (Zyprexa) 5 Mg Tab 5 MG PO BID #60 Ref 0 TAB Rifaximin (Xifaxan) 550 Mg Tab 550 MG PO Q8HR IBS w/Diarrhea #42 Ref 0 TAB Discontinued Medications: Qcrwpekoal-Drxahqffszqdw-Bwdddcmj (Fioricet) 50-300-40 Mg Cap 1 CAP PO Q4H PRN HEADACHE Ref 0 CAP Ciprofloxacin (Cipro) 500 Mg Tab 500 MG PO BID Infection Ref 0 TAB Nitrofurantoin Monohydrate Macrocrystals (Macrobid) 100 Mg Cap 100 MG PO BID Infection Days 7 CAP Rizatriptan Odt (Rizatriptan Odt) 10 Mg Tab 10 MG SL ONCE PRN MIGRAINE HEADACHE Zolpidem (Zolpidem) 10 Mg Tab 10 MG PO HS PRN INSOMNIA Ref 0 TAB Leatha Levine Jun 11, 2016 10:04
[2016-06-11 12:00] VITALS: BP 165/88; PULSE 60; RESP 18; TEMP 98.2; O2SAT 99
--- NOTE | 2016-06-11 13:46 | HHI.DS ---
Discharge Summary Admission Date Jun 04, 2016 at 23:02 Admitting Diagnosis NSTEMI, Shock Liver (1) NSTEMI (non-ST elevated myocardial infarction) (2) Shock liver Diagnosis: Principal (3) Chronic narcotic dependence Diagnosis: Principal (4) Chronic pain Diagnosis: Principal (5) Abdominal pain Diagnosis: Principal (6) Debility Diagnosis: Principal (7) Nausea & vomiting Diagnosis: Principal (8) History of fundoplication Diagnosis: Principal (9) CAD (coronary artery disease) Diagnosis: Principal (10) GERD (gastroesophageal reflux disease) Diagnosis: Principal (11) poss. ileus vs bowel obstruction Diagnosis: Principal (12) Epigastric pain Diagnosis: Principal (13) History of gastrectomy Diagnosis: Principal (14) History of CVA (cerebrovascular accident) Diagnosis: Principal (15) Hx of hiatal hernia Diagnosis: Principal (16) Hx of renal cell cancer Diagnosis: Principal (17) hx right nephrectomy Diagnosis: Principal Brief History Patient was admitted because of the abdominal pain nausea vomiting. Patient followed to have increasing LFTs. Also has increase in troponin. Patient was seen by maintenance helper utility engineer. As per cardiology and is not NM. It is secondary to mild rhabdomyolysis with increased troponin. Patient also seen and followed by software validation technician. Her LFTs were followed. Now it is significantly improved. Additional pain is significantly improved. She has no more nausea vomiting. She is overall stable. Plan to discharge her home to be followed by primary care doctor as outpatient. And also to follow GI as outpatient. She understood very well. CBC/BMP: 06/10/16 0536 06/07/16 0408 Significant Findings Laboratory Tests Test 06/09/16 06/09/16 06/10/16 07:14 11:30 05:36 Aspartate Amino Transf 113 U/L (15-37) 62 U/L (15-37) (AST/SGOT) Alanine Aminotransferase 447 U/L (10-53) 341 U/L (10-53) (ALT/SGPT) Total Protein 5.4 GM/DL 5.4 GM/DL (6.4-8.2) (6.4-8.2) Albumin 2.5 GM/DL 2.6 GM/DL (3.4-5.0) (3.4-5.0) Urine Mucus FEW /lpf (OCC) White Blood Count 3.6 TH/MM3 (4.0-11.0) Red Blood Count 3.59 MIL/MM3 (4.00-5.30) Hemoglobin 10.4 GM/DL (11.6-15.3) Hematocrit 30.7 % (35.0-46.0) Red Cell Distribution Width 17.9 % (11.6-17.2) Platelet Count 130 TH/MM3 (150-450) Pt Condition on Discharge: Stable Discharge Disposition: Disch w/ Home Health Serv Discharge Instructions DIET: Follow Instructions for: Heart Healthy Diet Activities you can perform: Weight Bearing as Marcella Follow up Referrals: Gastroenterology - 2 Weeks with Siobhan Charles MD New Medications: Walker with Front Wheels (Walker with Front Wheels) 1 Mis Mis 1 EA .ROUTE DIRECTED #1 Ref 0 EA Lidocaine Patch 12 HR (Lidoderm Patch 12 HR) 5% Patch 1 PATCH TD DAILY back pain #7 Ref 0 PATCH Continued Medications: Buspirone (Buspirone) 7.5 Mg Tab 7.5 MG PO BID Anxiety Ref 0 TAB Cyanocobalamin Inj (Cyanocobalamin Inj) 1,000 Mcg/Ml Inj 1000 MCG IM Q30D #1 Ref 0 VIAL Diazepam (Valium) 10 Mg Tab 10 MG PO TID Ref 0 TAB Dicyclomine (Bentyl) 10 Mg Cap 10 MG PO TID PRN CRAMPS Ref 0 CAP Fentanyl Patch 72 HR (Fentanyl Patch 72 HR) 25 Mcg/Hr Patch 25 MCG T-DERMAL Q72H Pain Management #10 Ref 0 PATCH Hydromorphone (Dilaudid) 4 Mg Tab 4 MG PO 5 TIMES A DAY Pain Management Ref 0 TAB Hydroxyzine HCl (Hydroxyzine HCl) 50 Mg Tab 50 MG PO Q8HR PRN ITCHING Ref 0 TAB Imipramine HCL (Imipramine HCL) 25 Mg Tab 25 MG PO HS Control Depression Ref 0 TAB Olanzapine (Zyprexa) 5 Mg Tab 5 MG PO BID #60 Ref 0 TAB Rifaximin (Xifaxan) 550 Mg Tab 550 MG PO Q8HR IBS w/Diarrhea #42 Ref 0 TAB Discontinued Medications: Lxnvyukkay-Ijbwixfrxpqnr-Gbzoozaz (Fioricet) 50-300-40 Mg Cap 1 CAP PO Q4H PRN HEADACHE Ref 0 CAP Ciprofloxacin (Cipro) 500 Mg Tab 500 MG PO BID Infection Ref 0 TAB Nitrofurantoin Monohydrate Macrocrystals (Macrobid) 100 Mg Cap 100 MG PO BID Infection Days 7 CAP Rizatriptan Odt (Rizatriptan Odt) 10 Mg Tab 10 MG SL ONCE PRN MIGRAINE HEADACHE Zolpidem (Zolpidem) 10 Mg Tab 10 MG PO HS PRN INSOMNIA Ref 0 TAB Ronal Leblanc MD Jun 11, 2016 13:46
== END 2016-06-11 14:55 | disposition home health service (06) | DRG 557 ==
LOC: NEPC 17:08 → NEDA 23:02 → N04B 06-05 01:12
PROVIDERS: ADMIT Specialist; ATTEND Specialist
DX: M62.82 Rhabdomyolysis (principal); K72.00 Acute and subacute hepatic failure without coma; G93.41 Metabolic encephalopathy; F11.20 Opioid dependence, uncomplicated; B17.9 Acute viral hepatitis, unspecified; G89.29 Other chronic pain; R10.9 Unspecified abdominal pain; E87.6 Hypokalemia; D72.829 Elevated white blood cell count, unspecified; R10.13 Epigastric pain; K21.9 Gastro-esophageal reflux disease without esophagitis; F41.9 Anxiety disorder, unspecified; R19.7 Diarrhea, unspecified; Z85.528 Personal history of other malignant neoplasm of kidney; I25.2 Old myocardial infarction; Z86.73 Personal history of transient ischemic attack (TIA), and cerebral infarction without residual deficits; Z87.74 Personal history of (corrected) congenital malformations of heart and circulatory system; Z88.0 Allergy status to penicillin; Z88.2 Allergy status to sulfonamides; Z88.8 Allergy status to other drugs, medicaments and biological substances; Z88.5 Allergy status to narcotic agent
CPT/HCPCS: 70450; 71020; 74177; 76705; 80048; 80053; 80061; 80074; 80076; 80301; 80320; 80329; 81001; 82103; 82140; 82390; 82550; 82552; 82728; 83516; 83520; 83540; 83550; 83605; 84132; 84484; 85025; 85027; 85610; 85730; 86038; 86256; 93005; 93306; 96365; 96375; 99283; C9113; G0479; J1170; J1644; J3370; J3480; J7030; J7050; P9612; Q9967

== ENCOUNTER 2016-06-20 08:18 | Emergency (ER) | payer BC ==
[~2016-06-20] VITALS: Ht 157.5 cm; Wt 50.0 kg
[~2016-06-20 08:18] MED LIST changes: +BUSP1TAB PO; -CALCTAB8 PO; +DIAZ10 PO; +DILA4TAB2 PO; +FENT25DI T-DERMAL; -IMIT100T PO; +LIDO5DIS35 TD; -MACR100C2 PO; -MAGN400T2 PO; -PANT40TA3 PO; -POTA-163 PO; -THIA200P IM; -VALIUM; -VITA100064 PO; -VITA400C2 PO; +WALKER WHEELS/F1 MIS; +XIFA550T4 PO; -ZOLP10TA3 PO
[2016-06-20 08:20] VITALS: BP 158/97; PULSE 68; RESP 14; TEMP 98.2; O2SAT 100
--- NOTE | 2016-06-20 08:34 | PD ---
HPI Chief Complaint: Flank/Kidney Pain Time Seen by Provider: 08:33 Travel History International Travel<30 days: No Contact w/Intl Traveler<30days: No Traveled to known affect area: No History of Present Illness HPI 56-year-old female came to the emergency room with history of left lower quadrant pain. Patient has been in the ER multiple times for chronic abdominal pain. She was admitted and discharged 10 days ago for abdominal pain. She was told that her liver was the problem. No history of vomiting or diarrhea. She has history of UTI in the past and patient says that she's been having trouble urinating. [facility] Past Medical History Narrative Medical List of her past medical history is reviewed from the nursing note. Hx Anticoagulant Therapy: No Asthma: No Blood Disorders: No Anxiety: Yes Heart Rhythm Problems: No Cancer: Yes (kidney) Cardiovascular Problems: Yes ([place] 2004) High Cholesterol: No Chemotherapy: No Chest Pain: No Congestive Heart Failure: No COPD: No Cerebrovascular Accident: Yes (2004) Diabetes: No Diminished Hearing: No Endocrine: No Gastrointestinal Disorders: Yes GERD: No Genitourinary: Yes (RIGHT NEPHRECTOMY) Headaches: Yes Hiatal Hernia: Yes Hypertension: No Immune Disorder: No Implanted Vascular Access Dvce: No Kidney Stones: No Musculoskeletal: No Neurologic: No Psychiatric: No Reproductive: No Respiratory: No Immunizations Current: Yes Migraines: Yes Myocardial Infarction: Yes (2005) Pneumonia: Yes Radiation Therapy: No Renal Failure: No Seizures: Yes Sleep Apnea: No Thyroid Disease: No Ulcer: No Menopausal: Yes : 1 Para: 1 Miscarriage: 0 : 0 Ectopic : No Ovarian Cysts: No Dilation and Curettage (D&C): Yes Tubal Ligation: Yes Past Surgical History Abdominal Surgery: Yes (total gastrectomy w/pouch 2002, hernia repair) Appendectomy: Yes Cardiac Surgery: Yes (pt states an occulator was placed in her heart 2005) Cholecystectomy: Yes Gynecologic Surgery: Yes (hysterectomy) Hysterectomy: Yes Thoracic Surgery: No Tonsillectomy: Yes Other Surgery: Yes (right kidney removed) Social History Alcohol Use: No Tobacco Use: No Substance Use: No Allergies-Medications (Allergen,Severity, Reaction): Coded Allergies: Compazine (Verified Allergy, Severe, SOB, 06/20/16) Gadolinium Derivatives (Verified Allergy, Severe, RESPIRATORY DISTRESS, ) Lobster (Verified Allergy, Severe, Anaphylaxis, 06/20/16) Morphine (Verified Allergy, Severe, Hives, 06/20/16) PT HAVING HIVES AND ITCHING TO ARM ABOVE IV SITE AFTER ADMINISTRATION OF MORPHINE Phenergan (Verified Allergy, Severe, SOB, 06/20/16) Reglan (Verified Allergy, Severe, SOB, 06/20/16) Toradol (Verified Allergy, Severe, Shortness of Breath, 06/20/16) Zofran (Verified Allergy, Severe, SOB, 06/20/16) Penicillin (Verified Allergy, Mild, RASH, 06/20/16) Sulfa (Verified Allergy, Mild, RASH, 06/20/16) *MDRO Multi-Drug Resistant Organism (Verified Adverse Reaction, Unknown, ) 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 Reported Meds & Prescriptions Reported Meds & Active Scripts Active Lidoderm Patch 12 HR (Lidocaine) 5% Patch 1 Patch TD DAILY Walker with Front Wheels (Device) 1 Mis Mis 1 Ea .ROUTE DIRECTED Reported Buspirone (Buspirone HCl) 7.5 Mg Tab 7.5 Mg PO BID Xifaxan (Rifaximin) 550 Mg Tab 550 Mg PO Q8HR Valium (Diazepam) 10 Mg Tab 10 Mg PO TID Dilaudid (Hydromorphone HCl) 4 Mg Tab 4 Mg PO 5 TIMES A DAY Fentanyl Patch 72 HR (Fentanyl) 25 Mcg/Hr Patch 25 Mcg T-DERMAL Q72H Zyprexa (Olanzapine) 5 Mg Tab 5 Mg PO BID Cyanocobalamin Inj (Cyanocobalamin) 1,000 Mcg/Ml Inj 1,000 Mcg IM Q30D Hydroxyzine HCl 50 Mg Tab 50 Mg PO Q8HR PRN Bentyl (Dicyclomine HCl) 10 Mg Cap 10 Mg PO TID PRN Imipramine HCL (Imipramine HCl) 25 Mg Tab 25 Mg PO HS Narrative Medication List of her home medications reviewed from the nursing note. Review of Systems Except as stated in HPI: all other systems reviewed are Neg Physical Exam Narrative GENERAL: Awake, alert, moderate distress, anxious SKIN: Warm and dry. HEAD: Atraumatic. Normocephalic. EYES: Pupils equal and round. No scleral icterus. No injection or drainage. ENT: No nasal bleeding or discharge. Mucous membranes pink and moist. NECK: Trachea midline. No JVD. CARDIOVASCULAR: Regular rate and rhythm. No murmur appreciated. RESPIRATORY: No accessory muscle use. Clear to auscultation. Breath sounds equal bilaterally. GASTROINTESTINAL: Abdomen soft, non-tender, nondistended. Hepatic and splenic margins not palpable. MUSCULOSKELETAL: No obvious deformities. No clubbing. No cyanosis. No edema. NEUROLOGICAL: Awake and alert. No obvious cranial nerve deficits. Motor grossly within normal limits. Normal speech. PSYCHIATRIC: Appropriate mood and affect; insight and judgment normal. Data Data Last Documented VS Vital Signs Date Time Temp Pulse Resp B/P Pulse Ox O2 Delivery O2 Flow Rate FiO2 06/20/16 12:21 65 18 160/90 98 06/20/16 08:20 98.2 Orders Complete Blood Count With Diff (06/20/16 08:39) Comprehensive Metabolic Panel (06/20/16 08:39) Lipase (06/20/16 08:39) Urinalysis - C+S If Indicated (06/20/16 08:39) Iv Access Insert/Monitor (06/20/16 08:39) Ecg Monitoring (06/20/16 08:39) Oximetry (06/20/16 08:39) Sodium Chlor 0.9% 1000 Ml Inj (Ns 1000 M (06/20/16 08:39) Sodium Chloride 0.9% Flush (Ns Flush) (06/20/16 08:45) Acetamin-Hydrocod 325-5 Mg (Hazel 5-325 (06/20/16 08:45) Labs Laboratory Tests Test 06/20/16 06/20/16 09:25 11:00 Urine Color YELLOW Urine Turbidity HAZY Urine pH 6.5 Urine Specific [place] 1.018 Urine Protein TRACE mg/dL Urine Glucose (UA) NEG mg/dL Urine Ketones 10 mg/dL Urine Occult Blood TRACE Urine Nitrite NEG Urine Bilirubin NEG Urine Urobilinogen LESS THAN 2.0 MG/DL Urine Leukocyte Esterase NEG Urine RBC 7 /hpf Urine WBC 3 /hpf Urine Squamous Epithelial 2 /hpf Cells Urine Amorphous Sediment RARE Urine Bacteria RARE /hpf Urine Mucus FEW /lpf Microscopic Urinalysis Comment CULT NOT INDICATED White Blood Count 9.7 TH/MM3 Red Blood Count 4.29 MIL/MM3 Hemoglobin 12.1 GM/DL Hematocrit 36.9 % Mean Corpuscular Volume 86.0 FL Mean Corpuscular Hemoglobin 28.2 PG Mean Corpuscular Hemoglobin 32.8 % Concent Red Cell Distribution Width 17.1 % Platelet Count 215 TH/MM3 Mean Platelet Volume 9.4 FL Neutrophils (%) (Auto) 89.2 % Lymphocytes (%) (Auto) 7.2 % Monocytes (%) (Auto) 3.4 % Eosinophils (%) (Auto) 0.1 % Basophils (%) (Auto) 0.1 % Neutrophils # (Auto) 8.7 TH/MM3 Lymphocytes # (Auto) 0.7 TH/MM3 Monocytes # (Auto) 0.3 TH/MM3 Eosinophils # (Auto) 0.0 TH/MM3 Basophils # (Auto) 0.0 TH/MM3 CBC Comment DIFF FINAL Differential Comment Sodium Level 139 MEQ/L Potassium Level 3.6 MEQ/L Chloride Level 105 MEQ/L Carbon Dioxide Level 25.9 MEQ/L Anion Gap 8 MEQ/L Blood Urea Nitrogen 9 MG/DL Creatinine 0.66 MG/DL Estimat Glomerular Filtration 93 ML/MIN Rate Random Glucose 107 MG/DL Calcium Level 8.9 MG/DL Total Bilirubin 0.3 MG/DL Aspartate Amino Transf 15 U/L (AST/SGOT) Alanine Aminotransferase 58 U/L (ALT/SGPT) Alkaline Phosphatase 90 U/L Total Protein 7.1 GM/DL Albumin 3.7 GM/DL Lipase 491 U/L [facility] Medical Decision Making Medical Screen Exam Complete: Yes Emergency Medical Condition: Yes Medical Record Reviewed: Yes Differential Diagnosis Acute on chronic abdominal pain, UTI, diverticulitis Narrative Course 8:44 AM patient had a CAT scan done 10 days ago which showed fatty liver but otherwise negative. I've ordered blood test and UA. If they're within normal limit patient will be discharged home. I've ordered a liter of IV fluid bolus and by mouth pain meds. Patient is on significant amount of pain medications at home including 4 mg of by mouth Dilaudid 5 times a day and fentanyl patch. 11:24 AM blood test results of back and within normal limit patient will be discharged home. Procedures EKG Prior to Arrival: No Diagnosis Primary Impression: acute on chronic abdominal pain Referrals: Primary Care Physician Additional Instructions: Follow-up with your primary care. Med/Other Pt SpecificInfo: No Change to Meds Disposition: 01 DISCHARGE HOME Condition: Stable Debra Saba MD Jun 20, 2016 08:34
[2016-06-20] MEDS ORDERED: SODIUM CHLOR 0.9% 1000 ML INJ 1,000 ML IV SCH (08:39)
[2016-06-20] MEDS ORDERED: ACETAMINOPHEN/HYDROcodone 325 MG/5 MG TAB PO ONE (08:45)
[2016-06-20] MEDS ORDERED: SODIUM CHLORIDE 0.9% FLUSH 5 ML FLUSH IVF PRN (08:45)
[2016-06-20 09:48] LABS: BACTERIA, URINE RARE /hpf; BLOOD, URINE TRACE (NEG); COMMENT (UR) CULT NOT INDICATED; CULTURE IF INDICATED CULT NOT INDICATED; GLUCOSE,URINE NEG (NEG); KETONE, URINE 10 mg/dL (NEG); MUCUS URINE FEW /lpf (OCC); NITRITE,URINE NEG (NEG); PH, URINE 6.5 (5.0-8.5); SQUAMOUS EPITHELIAL CELL URINE 2 /hpf (0-5); URINE COLOR YELLOW (YELLW/STRAW)
[2016-06-20 11:11] LABS: AUTOMATED NEUTROPHIL # 8.7 TH/MM3 (1.8-7.7); BASOPHIL % 0.1 % (0.0-2.0); EOSINOPHIL % 0.1 % (0.0-4.0); HEMATOCRIT 36.9 % (35.0-46.0); HEMO FLAGS DIFF FINAL; LYMPH % 7.2 % (9.0-44.0); LYMPHOCYTE # 0.7 TH/MM3 (1.0-4.8); MEAN CORPUSCULAR HEMOGLOBIN 28.2 PG (27.0-34.0); MEAN CORPUSCULAR HGB CONC 32.8 % (32.0-36.0); MONO % 3.4 % (0.0-8.0); NEUT % 89.2 % (16.0-70.0); PLATELET COUNT 215 TH/MM3 (150-450); RED BLOOD COUNT 4.29 MIL/MM3 (4.00-5.30); RED CELL DISTRIBUTION WIDTH 17.1 % (11.6-17.2); WHITE BLOOD COUNT 9.7 TH/MM3 (4.0-11.0)
[2016-06-20 11:19] LABS: ANION GAP 8 MEQ/L (5-15); AST (GOT) 15 U/L (15-37); BICARBONATE 25.9 MEQ/L (21.0-32.0); BLOOD UREA NITROGEN 9 MG/DL (7-18); CHLORIDE 105 MEQ/L (98-107); GLOMERULAR FILTRATION RATE 93 ML/MIN (>89); POTASSIUM 3.6 MEQ/L (3.5-5.1); SODIUM (NA) 139 MEQ/L (136-145)
[2016-06-20 11:22] LABS: ALKALINE PHOSPHATASE 90 U/L (45-117); ALT (GPT) 58 U/L (10-53); TOTAL BILIRUBIN ADULT 0.3 MG/DL (0.2-1.0)
[2016-06-20 12:21] VITALS: BP 160/90; PULSE 65; RESP 18; O2SAT 98
== END 2016-06-20 12:26 | disposition home or self-care (01) ==
LOC: NEPC 08:18
DX: R10.9 Unspecified abdominal pain (principal); G89.29 Other chronic pain
CPT/HCPCS: 80053; 81001; 83690; 85025; 96360; 99284; J7030

== ENCOUNTER 2016-06-22 22:38 | Observation (INO) | payer BC ==
[~2016-06-22] VITALS: Ht 157.5 cm; Wt 50.0 kg
[2016-06-22 22:42] VITALS: BP 151/91; PULSE 63; RESP 18; TEMP 97.6; O2SAT 100
[2016-06-22] MEDS ORDERED: SODIUM CHLOR 0.9% 1000 ML INJ 1,000 ML IV SCH (23:14)
[2016-06-22] MEDS ORDERED: SODIUM CHLORIDE 0.9% FLUSH 5 ML FLUSH IVF PRN (23:15)
[2016-06-22 23:55] VITALS: RESP 16; O2SAT 99
[2016-06-22 23:57] LABS: AUTOMATED NEUTROPHIL # 1.5 TH/MM3 (1.8-7.7); BASOPHIL % 0.1 % (0.0-2.0); EOSINOPHIL % 1.4 % (0.0-4.0); HEMATOCRIT 34.8 % (35.0-46.0); HEMO FLAGS DIFF FINAL; LYMPH % 45.6 % (9.0-44.0); LYMPHOCYTE # 1.5 TH/MM3 (1.0-4.8); MEAN CELL VOLUME 85.1 FL (80.0-100.0); MEAN CORPUSCULAR HEMOGLOBIN 27.9 PG (27.0-34.0); MEAN CORPUSCULAR HGB CONC 32.7 % (32.0-36.0); MONO % 8.4 % (0.0-8.0); NEUT % 44.5 % (16.0-70.0); PLATELET COUNT 193 TH/MM3 (150-450); RED BLOOD COUNT 4.09 MIL/MM3 (4.00-5.30); RED CELL DISTRIBUTION WIDTH 16.9 % (11.6-17.2); WHITE BLOOD COUNT 3.4 TH/MM3 (4.0-11.0)
[2016-06-23 00:09] LABS: ANION GAP 11 MEQ/L (5-15); AST (GOT) 19 U/L (15-37); BICARBONATE 24.4 MEQ/L (21.0-32.0); BLOOD UREA NITROGEN 9 MG/DL (7-18); CHLORIDE 106 MEQ/L (98-107); GLOMERULAR FILTRATION RATE 59 ML/MIN (>89); SODIUM (NA) 141 MEQ/L (136-145)
[2016-06-23 00:12] LABS: ALKALINE PHOSPHATASE 95 U/L (45-117); ALT (GPT) 46 U/L (10-53); TOTAL BILIRUBIN ADULT 0.2 MG/DL (0.2-1.0)
[2016-06-23] MEDS ORDERED: POTASSIUM CHLORIDE 20 MEQ CONTROLLED RELEASE TAB PO ONE (00:15)
--- NOTE | 2016-06-23 00:15 | PD ---
HPI Chief Complaint: Dizziness Time Seen by Provider: 23:02 Travel History International Travel<30 days: No Contact w/Intl Traveler<30days: No Traveled to known affect area: No History of Present Illness HPI The patient's 56 years old. She returns here for the fifth time in 30 days. She complains of diarrhea, nonbloody, clear, about 2 times per hour. She complains of dry heaving and nausea. Her chronic abdominal and back pain is unchanged with no significant relief with 4 mg oral Dilaudid 5 times daily in addition to Fentanyl patch 75mg. Valium 10mg TID has not conferred benefit either. She denies any recent changes in medication or changes in dose. She also complains of dizziness and difficulty with ambulation. No LOC. No weakness. No CP/SOB. PFSH Past Medical History Hx Anticoagulant Therapy: No Asthma: No Blood Disorders: No Anxiety: Yes Heart Rhythm Problems: No Cancer: Yes (kidney) Cardiovascular Problems: Yes ([place] ) High Cholesterol: No Chest Pain: No Congestive Heart Failure: No COPD: No Cerebrovascular Accident: Yes (2004) Diabetes: No Diminished Hearing: No Endocrine: No Gastrointestinal Disorders: Yes GERD: No Genitourinary: Yes (RIGHT NEPHRECTOMY) Headaches: Yes Hiatal Hernia: Yes Hypertension: No Immune Disorder: No Implanted Vascular Access Dvce: No Kidney Stones: No Musculoskeletal: No Neurologic: No Psychiatric: No Reproductive: No Respiratory: No Immunizations Current: Yes Migraines: Yes Myocardial Infarction: Yes (2005) Pneumonia: Yes Radiation Therapy: No Renal Failure: No Seizures: Yes Sleep Apnea: No Thyroid Disease: No Ulcer: No Tetanus Vaccination: < 5 Years Influenza Vaccination: Yes ?: Not LMP: TUBAL Menopausal: Yes : 1 Para: 1 Miscarriage: 0 : 0 Ectopic : No Ovarian Cysts: No Dilation and Curettage (D&C): Yes Tubal Ligation: Yes Past Surgical History Abdominal Surgery: Yes (total gastrectomy w/pouch 2002, hernia repair) Appendectomy: Yes Cardiac Surgery: Yes (pt states an occulator was placed in her heart 2005) Cholecystectomy: Yes Gynecologic Surgery: Yes (hysterectomy) Hysterectomy: Yes Thoracic Surgery: No Tonsillectomy: Yes Other Surgery: Yes (right kidney removed) Social History Alcohol Use: No Tobacco Use: No Substance Use: No Allergies-Medications (Allergen,Severity, Reaction): Coded Allergies: Compazine (Verified Allergy, Severe, SOB, 06/22/16) Gadolinium Derivatives (Verified Allergy, Severe, RESPIRATORY DISTRESS, ) Lobster (Verified Allergy, Severe, Anaphylaxis, 06/22/16) Morphine (Verified Allergy, Severe, Hives, 06/22/16) PT HAVING HIVES AND ITCHING TO ARM ABOVE IV SITE AFTER ADMINISTRATION OF MORPHINE Phenergan (Verified Allergy, Severe, SOB, 06/22/16) Reglan (Verified Allergy, Severe, SOB, 06/22/16) Toradol (Verified Allergy, Severe, Shortness of Breath, 06/22/16) Zofran (Verified Allergy, Severe, SOB, 06/22/16) Penicillin (Verified Allergy, Mild, RASH, 06/22/16) Sulfa (Verified Allergy, Mild, RASH, 06/22/16) *MDRO Multi-Drug Resistant Organism (Verified Adverse Reaction, Unknown, ) 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) Reported Meds & Prescriptions Reported Meds & Active Scripts Active Lidoderm Patch 12 HR (Lidocaine) 5% Patch 1 Patch TD DAILY Walker with Front Wheels (Device) 1 Mis Mis 1 Ea .ROUTE DIRECTED Reported Buspirone (Buspirone HCl) 7.5 Mg Tab 7.5 Mg PO BID Xifaxan (Rifaximin) 550 Mg Tab 550 Mg PO Q8HR Valium (Diazepam) 10 Mg Tab 10 Mg PO TID Dilaudid (Hydromorphone HCl) 4 Mg Tab 4 Mg PO 5 TIMES A DAY Fentanyl Patch 72 HR (Fentanyl) 25 Mcg/Hr Patch 25 Mcg T-DERMAL Q72H Zyprexa (Olanzapine) 5 Mg Tab 5 Mg PO BID Cyanocobalamin Inj (Cyanocobalamin) 1,000 Mcg/Ml Inj 1,000 Mcg IM Q30D Hydroxyzine HCl 50 Mg Tab 50 Mg PO Q8HR PRN Bentyl (Dicyclomine HCl) 10 Mg Cap 10 Mg PO TID PRN Imipramine HCL (Imipramine HCl) 25 Mg Tab 25 Mg PO HS Review of Systems Except as stated in HPI: all other systems reviewed are Neg Physical Exam Narrative GENERAL: 56-year-old female well-nourished well-developed SKIN: Warm and dry. HEAD: Atraumatic. Normocephalic. EYES: Pupils equal and round. No scleral icterus. No injection or drainage. ENT: No nasal bleeding or discharge. Mucous membranes pink and moist. NECK: Trachea midline. No JVD. CARDIOVASCULAR: Regular rate and rhythm. No murmur appreciated. RESPIRATORY: No accessory muscle use. Clear to auscultation. Breath sounds equal bilaterally. GASTROINTESTINAL: Soft. Diffuse nonspecific tenderness. MUSCULOSKELETAL: No obvious deformities. No clubbing. No cyanosis. No edema. NEUROLOGICAL: Awake and alert. No obvious cranial nerve deficits. Motor grossly within normal limits. Normal speech. PSYCHIATRIC: Appropriate mood and affect; insight and judgment normal. Data Data Last Documented VS Vital Signs Date Time Temp Pulse Resp B/P Pulse Ox O2 Delivery O2 Flow Rate FiO2 06/22/16 23:56 16 98 Room Air 06/22/16 22:42 97.6 63 151/91 VS reviewed Orders Complete Blood Count With Diff (06/22/16 23:14) Comprehensive Metabolic Panel (06/22/16 23:14) Lipase (06/22/16 23:14) Urinalysis - C+S If Indicated (06/22/16 23:14) Iv Access Insert/Monitor (06/22/16 23:14) Ecg Monitoring (06/22/16 23:14) Oximetry (06/22/16 23:14) Sodium Chlor 0.9% 1000 Ml Inj (Ns 1000 M (06/22/16 23:14) Sodium Chloride 0.9% Flush (Ns Flush) (06/22/16 23:15) Electrocardiogram (06/22/16 23:14) Potassium Chloride (Kcl) (06/23/16 00:15) Potassium Chlor 20 Meq Premix (Kcl 20 Me (06/23/16 00:45) Hydromorphone Pf Inj (Dilaudid Pf Inj) (06/23/16 00:45) Ct Brain W/O Iv Contrast(Rout) (06/23/16 00:44) Admit Order (Ed Use Only) (06/23/16 01:03) Labs Laboratory Tests Test 06/22/16 06/23/16 23:45 00:40 White Blood Count 3.4 TH/MM3 Red Blood Count 4.09 MIL/MM3 Hemoglobin 11.4 GM/DL Hematocrit 34.8 % Mean Corpuscular Volume 85.1 FL Mean Corpuscular Hemoglobin 27.9 PG Mean Corpuscular Hemoglobin 32.7 % Concent Red Cell Distribution Width 16.9 % Platelet Count 193 TH/MM3 Mean Platelet Volume 9.7 FL Neutrophils (%) (Auto) 44.5 % Lymphocytes (%) (Auto) 45.6 % Monocytes (%) (Auto) 8.4 % Eosinophils (%) (Auto) 1.4 % Basophils (%) (Auto) 0.1 % Neutrophils # (Auto) 1.5 TH/MM3 Lymphocytes # (Auto) 1.5 TH/MM3 Monocytes # (Auto) 0.3 TH/MM3 Eosinophils # (Auto) 0.0 TH/MM3 Basophils # (Auto) 0.0 TH/MM3 CBC Comment DIFF FINAL Differential Comment Sodium Level 141 MEQ/L Potassium Level 3.0 MEQ/L Chloride Level 106 MEQ/L Carbon Dioxide Level 24.4 MEQ/L Anion Gap 11 MEQ/L Blood Urea Nitrogen 9 MG/DL Creatinine 0.98 MG/DL Estimat Glomerular Filtration 59 ML/MIN Rate Random Glucose 83 MG/DL Calcium Level 8.8 MG/DL Total Bilirubin 0.2 MG/DL Aspartate Amino Transf 19 U/L (AST/SGOT) Alanine Aminotransferase 46 U/L (ALT/SGPT) Alkaline Phosphatase 95 U/L Total Protein 7.1 GM/DL Albumin 3.6 GM/DL Lipase 694 U/L Urine Color YELLOW Urine Turbidity CLEAR Urine pH 6.5 Urine Specific [place] 1.010 Urine Protein NEG mg/dL Urine Glucose (UA) NEG mg/dL Urine Ketones NEG mg/dL Urine Occult Blood NEG Urine Nitrite NEG Urine Bilirubin NEG Urine Urobilinogen LESS THAN 2.0 MG/DL Urine Leukocyte Esterase MOD Urine RBC LESS THAN 1 /hpf Urine WBC 3 /hpf Urine Squamous Epithelial 3 /hpf Cells Urine Bacteria MOD /hpf Urine Mucus FEW /lpf Microscopic Urinalysis Comment CULTURE INDICATED MDM Medical Decision Making Medical Screen Exam Complete: Yes Emergency Medical Condition: Yes Medical Record Reviewed: Yes Differential Diagnosis Constipation, Gastritis, Acute Cholecystitis, Biliary Colic, Pancreatitis, GREENE , Hepatitis, Bowel Obstruction, Cystitis, Mesenteric Ischemia, AAA, Appendicitis , Renal Stone/Hydronephrosis, GERD, perforated viscous Narrative Course CBC & BMP Diagram 06/22/16 23:45 LFTs normal Lipase 694 UA: UTI present Pt has pancreatitis and will kept as obs for management of same. Prior GI documentation notes elevated lipase however was considered non-specific. Pt also has UTI with multiple U culture isolates sensitive to Rocephin on record. One dose Rocephin ordered here. IV KCl ordered. Pt had good response to 0.5mg IV hydromorphone. Case d/w BARBARA Bello. Diagnosis Primary Impression: Pancreatitis Qualified Code: K85.90 - Acute pancreatitis, unspecified complication status, unspecified pancreatitis type Additional Impression: Cystitis Noble Long MD Jun 23, 2016 00:15
[2016-06-23] MEDS ORDERED: POTASSIUM CHLOR 20 MEQ PREMIX 100 ML IV ONE (00:45)
[2016-06-23] MEDS ORDERED: HYDROmorphone HCL PF 1 MG/ML VIAL IV PUSH ONE (00:45)
[2016-06-23 01:13] LABS: BACTERIA, URINE MOD /hpf; BLOOD, URINE NEG (NEG); COMMENT (UR) CULTURE INDICATED; CULTURE IF INDICATED CULTURE INDICATED; GLUCOSE,URINE NEG (NEG); KETONE, URINE NEG (NEG); MUCUS URINE FEW /lpf (OCC); NITRITE,URINE NEG (NEG); PH, URINE 6.5 (5.0-8.5); SQUAMOUS EPITHELIAL CELL URINE 3 /hpf (0-5); URINE COLOR YELLOW (YELLW/STRAW)
--- NOTE | 2016-06-23 01:25 | RADRPT ---
EXAM DATE/TIME: 06/23/2016 01:07 [facility] COMPARISON: CT BRAIN W/O CONTRAST, June 04, 2016, 18:17. INDICATIONS : Dizzy with trouble walking. RADIATION DOSE: 56.35 CTDIvol (mGy) MEDICAL HISTORY : Cardiovascular disease. Seizures. renal cancer, cva SURGICAL HISTORY : Hysterectomy. Tonsillectomy. ENCOUNTER: Initial ACUITY: 1 day PAIN SCALE: 0/10 LOCATION: cranial TECHNIQUE: Multiple contiguous axial images were obtained of the head. Using automated exposure control and adj ustment of the mA and/or kV according to patient size, radiation dose was kept as low as reasonably a chievable to obtain optimal diagnostic quality images. FINDINGS: CEREBRUM: The ventricles are normal for age. No evidence of midline shift, mass lesion, hemorrhage or acute in farction. No extra-axial fluid collections are seen. POSTERIOR FOSSA: The cerebellum and brainstem are intact. The 4th ventricle is midline. The cerebellopontine angle i s unremarkable. EXTRACRANIAL: The visualized portion of the orbits is intact. SKULL: The calvaria is intact. No evidence of skull fracture. CONCLUSION: Stable brain appearance. No acute intracranial findings. Donato Wang MD on June 23, 2016 at 1:22 Board Certified Radiologist. This report was verified electronically.
[2016-06-23 01:30] VITALS: BP 151/86; PULSE 63; RESP 18; TEMP 98.1; O2SAT 100
[2016-06-23] MEDS ORDERED: cefTRIAXone INJ 1,000 MG in SODIUM CHLORIDE 0.9% INJ 100 ML IV ONE (01:30)
[2016-06-23] MEDS ORDERED: cefTRIAXone INJ 1,000 MG in SODIUM CHLORIDE 0.9% INJ 100 ML IV SCH (02:00)
[2016-06-23] MEDS ORDERED: SODIUM CHLORIDE 0.9% FLUSH 5 ML FLUSH IV PRN (02:00)
[2016-06-23] MEDS ORDERED: HYDROmorphone HCL PF 1 MG/ML VIAL IV PUSH PRN (02:00)
[2016-06-23] MEDS ORDERED: ZOLPIDEM TARTRATE 10 MG TAB PO PRN (02:15)
[2016-06-23] MEDS ORDERED: LORazepam 2 MG/ML VIAL IV PUSH PRN (02:45)
[2016-06-23] MEDS: HYDROmorphone HCL PF 1 MG/ML VIAL IV PRN ×3 (03:19→09:10)
[2016-06-23] MEDS: SODIUM CHLOR 0.9% 1000 ML INJ 1,000 ML IV SCH ×2 (04:39→09:13)
[2016-06-23] MEDS ORDERED: ENOXAPARIN SODIUM 40 MG/0.4 ML SYRINGE SQ SCH (06:00)
[2016-06-23 08:18] VITALS: BP 148/75; PULSE 83; RESP 18; O2SAT 98
--- NOTE | 2016-06-23 08:43 | PD.CONS ---
HPI History of Present Illness This is a 56 year old female patient who came to the ER for evaluation of nausea , vomiting, or abdominal pain. She reports that she has chronic abdominal pain from multiple abdominal surgeries and sees pain management for this. She is taking Fentanyl 25mcg q72 hours and Dilaudid 4mg po q4h for pain. She has tried multiple pain meds and states that the dilaudid is the only thing that helps. She states that she is usually able to control her pain with this. She started having worsening of symptoms with dry heaving, abdominal pain, and diarrhea yesterday afternoon. Her pain is a severe constant pain in her epigastric area that radiates to her back. Her regular pain meds did not help with this. She has associated chills, nausea, and dry heaving. She started having diarrhea, consisting of about 20 clearish liquid bowel movements with no blood or mucous yesterday. She did try Imodium She has lost about 14 lbs over the past month secondary to decreased appetite. Her symptoms are aggravated by po intake. She denies any recent travel, suspicious food, or recent antibiotic use. She denies any ETOH use or new medications. She reports that she did have an episode of pancreatitis a few years ago. She does not know the cause of this. She does state that this pain is very similar to that episode. Of note, she states that she takes Valium TID and this really helps with both her abdominal pain and nausea and she is requesting this now. EGD/Colonoscopy (11/21) and this revealed s/p gastric bypass, biopsy of gastric polyp; diverticulosis in sigmoid and descending colon, retroflexed views revealed small internal hemorrhoids, external hemorrhoids. Pathology revealed mild chronic gastritis, negative for helicobacter pylori. She was given a trial of dicyclomine, but stated that this made her symptoms worse. It was also recommended that SBFT, but she has still not had this done and states that she cannot undergo this while she is sick and that she will have it done as outpatient. She underwent 2 fundoplications (2000, 2000), but she reports that both of them failed and therefore she ended up having a subtotal gastrectomy. No hx of PUD. She has had multiple bowel obstructions. She states that she has never required surgeries for these. Of note, she had celiac testing in the past which was negative. (Nalini Willett) PFSH Past Medical History ? Pancreatitis once about 2 years ago Kidney cancer, S/P Right nephrectomy [place]/CAD, undetected PFO Double embolic CVA, coma 7 days GERD Aspiration pneumonia Ileus Gastric polyp Chronic abdominal pain Past Surgical History Fundoplication x 2 Subtotal gastrectomy G tube placement Incisional hernia repair x 2 EGD/Colonoscopy Cardiac catheterization Tonsillectomy Appendectomy Cholecystectomy Tubal ligation (Nalini Willett) Coded Allergies: Compazine (Verified Allergy, Severe, SOB, 06/22/16) Gadolinium Derivatives (Verified Allergy, Severe, RESPIRATORY DISTRESS, ) Lobster (Verified Allergy, Severe, Anaphylaxis, 06/22/16) Morphine (Verified Allergy, Severe, Hives, 06/22/16) PT HAVING HIVES AND ITCHING TO ARM ABOVE IV SITE AFTER ADMINISTRATION OF MORPHINE Phenergan (Verified Allergy, Severe, SOB, 06/22/16) Reglan (Verified Allergy, Severe, SOB, 06/22/16) Toradol (Verified Allergy, Severe, Shortness of Breath, 06/22/16) Zofran (Verified Allergy, Severe, SOB, 06/22/16) Penicillin (Verified Allergy, Mild, RASH, 06/22/16) Sulfa (Verified Allergy, Mild, RASH, 06/22/16) *MDRO Multi-Drug Resistant Organism (Verified Adverse Reaction, Unknown, ) 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) Uncoded Allergies: GADOLINIUM (Adverse Reaction, Severe, PT STOPPED BREATHING WITH GADO, ) PT STATES SHE STOPPED BREATHING AFTER HAVING GADO AT ANOTHER FACILITY. 06/23/16 [facility] Medications Allergies Coded Allergies Type Severity Reaction Last Updated Verified Compazine Allergy Severe SOB 06/22/16 Yes Gadolinium Derivatives Allergy Severe RESPIRATORY DISTRESS 06/22/16 Yes Lobster Allergy Severe Anaphylaxis 06/22/16 Yes Morphine Allergy Severe Hives 06/22/16 Yes Phenergan Allergy Severe SOB 06/22/16 Yes Reglan Allergy Severe SOB 06/22/16 Yes Toradol Allergy Severe Shortness of Breath 06/22/16 Yes Zofran Allergy Severe SOB 06/22/16 Yes Penicillin Allergy Mild RASH 06/22/16 Yes Sulfa Allergy Mild RASH 06/22/16 Yes *MDRO Multi-Drug Resistant Organism Adverse Reaction Unknown 06/22/16 Yes Active Scripts Medications Dose Route/Sig Days Date Category Lidoderm Patch 12 HR (Lidocaine) 5% Patch 1 Patch TD DAILY 06/11/16 Rx Walker with Front Wheels (Device) 1 Mis Mis 1 Ea .ROUTE DIRECTED 06/10/16 Rx Buspirone (Buspirone HCl) 7.5 Mg Tab 7.5 Mg PO BID 06/04/16 Reported Valium (Diazepam) 10 Mg Tab 10 Mg PO TID 06/04/16 Reported Dilaudid (Hydromorphone HCl) 4 Mg Tab 4 Mg PO Q6HR 06/04/16 Reported Fentanyl Patch 72 HR (Fentanyl) 25 Mcg/Hr Patch 25 Mcg T-DERMAL Q72H 06/04/16 Reported Zyprexa (Olanzapine) 5 Mg Tab 5 Mg PO BID 04/05/16 Reported Cyanocobalamin Inj (Cyanocobalamin) 1,000 Mcg/Ml Inj 1,000 Mcg IM Q30D 04/05/16 Reported Hydroxyzine HCl 50 Mg Tab 50 Mg PO Q8HR PRN 04/05/16 Reported Imipramine HCL (Imipramine HCl) 25 Mg Tab 25 Mg PO HS 04/05/16 Reported Family History Both parents had COPD, Mother also had MS. Social History No tobacco. No ETOH No illicit drug use (Nalini Willett) Review of Systems Constitutional: COMPLAINS OF: Fatigue, Weight loss, Chills, DENIES: Fever Respiratory: DENIES: Cough, Shortness of breath Cardiovascular: COMPLAINS OF: Palpitations (anxiety), DENIES: Chest pain Gastrointestinal: COMPLAINS OF: Abdominal pain, Diarrhea, Nausea, Anorexia, DENIES: Black stools, Bloody stools, Constipation, Swelling of Abdomen, Heartburn, Hematemesis Genitourinary: DENIES: Urgency, Hematuria Musculoskeletal: COMPLAINS OF: Back pain Integumentary: DENIES: Rash Hematologic/lymphatic: DENIES: Bruising Neurologic: COMPLAINS OF: Headache Psychiatric: COMPLAINS OF: Anxiety (Nalini Willett) GI Exam Vitals I&O Vital Signs Date Time Temp Pulse Resp B/P Pulse Ox O2 Delivery O2 Flow Rate FiO2 06/23/16 08:18 83 18 148/75 98 Room Air 06/23/16 04:37 20 1/17/17 01:29 20 06/22/16 23:56 16 98 Room Air 06/22/16 23:55 16 99 Room Air 06/22/16 22:42 97.6 63 18 151/91 100 I/O 06/22/16 06/22/16 06/22/16 06/23/16 06/23/16 06/23/16 07:00 15:00 23:00 07:00 15:00 23:00 Output Total 500 ml Balance -500 ml Output Urine Total 500 ml # Voids 1 Imaging Last Impressions Head CT 06/23/16 0044 Signed Impressions: Service Date/Time: Thursday, June 23, 2016 01:07 - CONCLUSION: Stable brain appearance. No acute intracranial findings. Donato Wang MD Laboratory Test 06/22/16 06/23/16 23:45 00:40 White Blood Count 3.4 TH/MM3 Red Blood Count 4.09 MIL/MM3 Hemoglobin 11.4 GM/DL Hematocrit 34.8 % Mean Corpuscular Volume 85.1 FL Mean Corpuscular Hemoglobin 27.9 PG Mean Corpuscular Hemoglobin 32.7 % Concent Red Cell Distribution Width 16.9 % Platelet Count 193 TH/MM3 Mean Platelet Volume 9.7 FL Neutrophils (%) (Auto) 44.5 % Lymphocytes (%) (Auto) 45.6 % Monocytes (%) (Auto) 8.4 % Eosinophils (%) (Auto) 1.4 % Basophils (%) (Auto) 0.1 % Neutrophils # (Auto) 1.5 TH/MM3 Lymphocytes # (Auto) 1.5 TH/MM3 Monocytes # (Auto) 0.3 TH/MM3 Eosinophils # (Auto) 0.0 TH/MM3 Basophils # (Auto) 0.0 TH/MM3 CBC Comment DIFF FINAL Differential Comment Sodium Level 141 MEQ/L Potassium Level 3.0 MEQ/L Chloride Level 106 MEQ/L Carbon Dioxide Level 24.4 MEQ/L Anion Gap 11 MEQ/L Blood Urea Nitrogen 9 MG/DL Creatinine 0.98 MG/DL Estimat Glomerular Filtration 59 ML/MIN Rate Random Glucose 83 MG/DL Calcium Level 8.8 MG/DL Total Bilirubin 0.2 MG/DL Aspartate Amino Transf 19 U/L (AST/SGOT) Alanine Aminotransferase 46 U/L (ALT/SGPT) Alkaline Phosphatase 95 U/L Total Protein 7.1 GM/DL Albumin 3.6 GM/DL Lipase 694 U/L Urine Color YELLOW Urine Turbidity CLEAR Urine pH 6.5 Urine Specific [place] 1.010 Urine Protein NEG mg/dL Urine Glucose (UA) NEG mg/dL Urine Ketones NEG mg/dL Urine Occult Blood NEG Urine Nitrite NEG Urine Bilirubin NEG Urine Urobilinogen LESS THAN 2.0 MG/DL Urine Leukocyte Esterase MOD Urine RBC LESS THAN 1 /hpf Urine WBC 3 /hpf Urine Squamous Epithelial 3 /hpf Cells Urine Bacteria MOD /hpf Urine Mucus FEW /lpf Microscopic Urinalysis Comment CULTURE INDICATED Date/Time Procedure Status Source Growth 06/23/16 00:40 Urine Culture Received Urine Random Urine Pending Physical Examination HEENT: Normocephalic; atraumatic; no jaundice. CHEST: CTA, diminished CARDIAC: RRR ABDOMEN: Soft, nondistended, mild diffuse tenderness; no hepatosplenomegaly; bowel sounds are present in all four quadrants. EXTREMITIES: No clubbing, cyanosis, or edema. SKIN: Normal; no rash; no jaundice. DIRECTOR BANKING: No focal deficits; alert and oriented times three. (Nalini Willett) Assessment and Plan Plan ASSESSMENT: - Acute on chronic abdominal pain with nausea, dry heaving. No imaging during this hospitalization, did have CT 06/04. She has a hx of multiple abdominal surgeries and states she has chronic pain from these. She is followed by pain management and takes Fentanyl 25mcg q72 hours, Dilaudid 4mg po q4h for pain, Valium po TID for this at home. She states she had worsening symptoms yesterday with no relief and came to the ER for further evaluation. EGD/Colonoscopy (11/22/15) and this revealed s /p gastric bypass, biopsy of gastric polyp; diverticulosis in sigmoid and descending colon, retroflexed views revealed small internal hemorrhoids, external hemorrhoids. Pathology revealed mild chronic gastritis, negative for helicobacter pylori. She was given a trial of dicyclomine, but stated that this made her symptoms worse. It was also recommended that SBFT, but she has still not had this done and states that she cannot undergo this while she is sick and that she will have it done as outpatient. WBC unremarkable. Lipase nonspecifically elevated. No imaging. Will cont. clears, get MRI of the abdomen without contrast, GES, stool studies. PPI. Suspect that her medications may be contributing to some of her symptoms. - Diarrhea. No risk factors for infectious etiology. Previous celiac testing negative. Refusing SBFT- states will have done as outpatient. Will get stool studies. - Elevated lipase, unclear significance. States she had one prior history of pancreatitis about 2 years ago and that the cause was not identified. Her lipase is mildly elevated, but there is no imaging. Triglycerides in May were 62. No new meds. S/P cholecystectomy. - Anemia. 11.4/34.8. PLAN: - Clear liquids - MRI Abdomen without contrast - GES - Cont. PPI - Zofran prn - Stool studies - Supportive care - Further recommendations to follow based on results of above - Pt seen and examined by Dr. Charles and myself and this note is written on his behalf (Nalini Willett) Physician Comments Seen and examined with Ms. Brennon FERREIRA, MRI done today -ve for source of pain. GES-P. Wants to do sbft as outpt. Has appointment with surgery as outpt. REcommend evaluation at [facility] as outpt. Discussed with Dr. Gilliland. Thank you (Siobhan Charles MD) Nalini Willett Jun 23, 2016 08:42 Siobhan Charles MD Jun 23, 2016 15:08
[2016-06-23] MEDS ORDERED: OLANZapine 5 MG TAB PO SCH (09:00)
[2016-06-23] MEDS ORDERED: LIDOCAINE HCL 5% PATCH TD SCH (09:00)
[2016-06-23] MEDS ORDERED: SODIUM CHLORIDE 0.9% FLUSH 5 ML FLUSH IV SCH (09:00)
[2016-06-23] MEDS ORDERED: PANTOPRAZOLE SOD 40 MG DELAYED RELEASE TAB PO SCH (09:00)
[2016-06-23] MEDS ORDERED: DIAZEPAM 5 MG TAB PO PRN (10:15)
[2016-06-23] MEDS ORDERED: HYDROmorphone HCL 2 MG TAB PO PRN (10:15)
--- NOTE | 2016-06-23 10:18 | EKG ---
Date Performed: 06/23/2016 Time Performed: 00:22:01 PTAGE: 56 years EKG: Sinus rhythm POSSIBLE LEFT ATRIAL ENLARGEMENT BORDERLINE ECG Compared to the PREVIOUS TRACING , LBBB is no longer present PREVIOUS TRACIN06/05/2016 07.24 DOCTOR: Dustin Wagner Interpretating Date/Time 06/23/2016 10:16:32
[2016-06-23] MEDS ORDERED: PILL SPLITTER OTHER PRN (10:30)
--- NOTE | 2016-06-23 11:03 | MH ---
cc: SALO JULIO MD DATE OF ADMISSION 06/23/2016 CHIEF COMPLAINT Abdominal pain HISTORY OF PRESENT ILLNESS This is a 56-year-old female patient who has chronic abdominal pain from multiple previous surgeries. She is on a Fentanyl patch as well as oral Dilaudid on a regular basis. She has multiple allergies to most of the antiemetics. She also has chronic nausea and dry heaves. Her doctors have prescribed Ativan and Valium to help with this. The Valium does seem to help decrease some of the dry heaves, however over the past 24 hours or so, the dry heaves have gotten a lot worse. Her pain has become more excruciating. She has been able to take very little oral intake. She has noticed that she has had some chills, but no fever. Her heart rate was higher than normal today. Her urine output was down. She became very weak and had difficulty ambulating. Because of these symptoms, she ended up coming to the emergency room today. She was found to have an elevated lipase and is being admitted for pancreatitis. She does not have a history of pancreatitis. She denies any recent alcohol intake or any other significant changes in her normal regimen. She was admitted to hospital on June 04 with a shock liver and a [id number] OK. MEDICATIONS On admission, please see the chart. ALLERGIES COMPAZINE, GADOLINIUM, LOBSTER, MORPHINE, PENICILLIN, PHENERGAN, REGLAN, SULFA, TORADOL AND ZOFRAN. PAST MEDICAL HISTORY Significant for: 1. An OK 2. CVA 3. Anxiety 4. Migraines 5. Pneumonia 6. Seizures 7. Fatty liver 8. Non-ST elevation OK 9. PFO which lead to the embolic strokes 10. Renal cancer PAST SURGICAL HISTORY 1. Right nephrectomy 2. Tubal ligation 3. Gastrectomy with pouch 4. Hernia repair 5. Appendectomy 6. Cholecystectomy 7. Hysterectomy 8. Tonsillectomy 9. Fundoplication 10. PFO closure with cable swager SOCIAL HISTORY No tobacco, alcohol or drugs. FAMILY HISTORY Mother had MS and COPD. Father had COPD. REVIEW OF SYSTEMS A 12-point review of systems gone over with the patient. She states she has lost over 15 pounds in the past three weeks. She lives in chronic pain usually in the area of where her stomach is. The current pain is much more intense. She states she has an appointment at the gastroenterologists office next week to go over some of the tests that were ordered that were not resulted during her last hospital stay. No other pertinent findings. PHYSICAL EXAMINATION VITAL SIGNS: Afebrile, heart rate 63, respirations 18, blood pressure 151/91. O2 sats 100% on room air. GENERAL: This is a 56 year-old female sitting in bed. She appears to be in mild discomfort, but in no respiratory distress. HEAD, EYES, EARS, NOSE, AND THROAT: Mucous membranes are moist. NECK: Supple. CARDIOVASCULAR: Regular rate and rhythm. RESPIRATORY: Lungs are clear. GASTROINTESTINAL: Bowel sounds are present. Diffusely tender mainly in the upper abdomen and epigastric area to even very light palpation. Deep palpation is not undertaken at the patient's request. The abdomen does not appear to be distended. : Mild bilateral CVA tenderness. MUSCULOSKELETAL: No edema. Stefano's is negative. Distal pulses are palpable. NEUROLOGIC: The patient is awake, alert and oriented. Speech is clear and fluent. Strength appears symmetrical in the upper and lower extremities. Pupils are dilated and sluggish. Tongue is midline. INVESTIGATIONS CT of the brain shows no acute findings. White count is 3.4, hemoglobin 11.4, platelets are 193. Sodium 141, potassium 3, LFT's are normal. Creatinine is 0.98, lipase was 694. Urinalysis shows moderate leukocyte esterase, moderate bacteria, culture is pending. EKG shows sinus rhythm, possible left atrial enlargement. IMPRESSION 1. Pancreatitis 2. Urinary tract infection 3. Chronic pain 4. Recent non-ST elevation OK with shock liver. 5. Anemia 6. Leukopenia 7. Hypokalemia on admission DISCUSSION The patient has been placed on Dr. Julio's service. The patient is receiving IV fluids and electrolytes. Potassium has already been replaced. Labs will be followed up in the morning. DVT prophylaxis will be provided. Antibiotics have been started for the urinary tract infection. GI consultation will be requested for the pancreatitis. We will follow up lipase level in the morning. We will attempt symptom control with analgesics. Cannot use traditional antiemetics because of her allergies. We will use a benzodiazepine to try to alleviate some of the nausea and dry heaves and further recommendations will be made as her case progresses. Dictated by: Donato Bello PA-C [facility] valleyMD DESMOND Fraire/MARITA /2:34 AM /10:34 AM PT was seen & examined d/w PT d/w Donato d/w Dr ng etiology of pain not clear , doubt pancreatitis chronic pain / drug seeking attitude supportive care will f/u MTDD
[2016-06-23] MEDS ORDERED: ERYTHROMYCIN IV PRN ×2 (12:00)
[2016-06-23] MEDS ORDERED: HYDROmorphone HCL 4 MG TAB PO SCH (12:00)
[2016-06-23] MEDS ORDERED: SODIUM CHLORIDE IV PRN ×2 (12:00)
[2016-06-23] MEDS ORDERED: fentaNYL 25 MCG/HR PATCH T-DERMAL SCH (12:00)
--- NOTE | 2016-06-23 12:36 | RADRPT ---
EXAM DATE/TIME: 06/23/2016 11:19 [facility] COMPARISON: CT ABDOMEN & PELVIS W CONTRAST, June 04, 2016, 21:03. INDICATIONS: Pain. MEDICAL HISTORY: Renal ca SURGICAL HISTORY: Cholecystectomy. Appendectomy. Tonsillectomy. Stomach/right kidney removed. ENCOUNTER: Subsequent ACUITY: 3 day PAIN SCORE: 4/10 LOCATION: Abdomen. TECHNIQUE: Multiplanar, multisequence magnetic resonance imaging of the abdomen was performed without contrast. FINDINGS: The patient is status post right nephrectomy. There is some susceptibility artifact in the right abimael al fossa. There is also some susceptibility artifact from clips seen at the expected location of the GE junction. Apparently the patient is status post gastrectomy. There is fluid filled bowel seen i n the right renal fossa region likely related to the duodenum. Patient is status post cholecystectom y. Significant biliary dilatation is not clearly seen. The liver and spleen appear grossly normal. The left kidney is normal. The pancreas and left adrenal gland are normal. The susceptibility yamilka fact limits visualization of the right adrenal gland but this appeared normal on the prior CT examina tion. The aorta and IVC are normal. There is some mild increased signal seen in the posterior lung bases bilaterally. CONCLUSION: 1. Status post right nephrectomy and gastrectomy and cholecystectomy. 2. No acute intra-abdominal abnormalities seen. 3. Increased signal seen at the posterior lung bases likely representing some degree of atelectasis or consolidation. Donato Bradshaw MD on June 23, 2016 at 12:10 Board Certified Radiologist. This report was verified electronically.
[2016-06-23] MEDS ORDERED: DIAZEPAM 10 MG TAB PO SCH (13:00)
[2016-06-23 13:50] VITALS: BP 162/85; PULSE 61; RESP 16; O2SAT 100
--- NOTE | 2016-06-23 14:58 | RADRPT ---
EXAM DATE/TIME: 06/23/2016 11:31 [facility] COMPARISON: CT ABDOMEN & PELVIS W CONTRAST, June 04, 2016, 21:03. INDICATIONS : Abdominal pain with nausea, vomiting and diarrhea. DOSE: 1.0 mCi Tc99m Sulfur Colloid Labeled Whole egg PO MEDICATONS: 125 mg Erythromycin IV at 90 minutes IMAGIN hr 35 min MEDICAL HISTORY : Gastroesophageal reflux disease. Myocardial infarction. Pancreatitis. Coronary artery disease. SURGICAL HISTORY : Nephrectomy, right. Tonsillectomy. Appendectomy. Cholecystectomy, tubal liga tion, fundoplication and gastrectomy. ENCOUNTER: Initial ACUITY: 1 day PAIN SCALE: 6/10 LOCATION: Abdomen. TECHNIQUE: Following the oral ingestion of radiotracer-labeled meal, dynamic sequential images in the ANY projection were acquired with simultaneous computer acquisition. The data set was decay-cor rected. FINDINGS: The patient was given sulfur colloid with an egg. On the initial image there is isotop e in what is believed to be the midline then there is a C-shaped segment of bowel extending towards t he right. On the patient's prior CT examination it appears that the patient is status post at least partial gastrectomy. The configuration of the bowel appears relatively unchanged over the next hour. The patient was given 125 mg of intravenous erythromycin at 90 minutes. At 90 minutes there was pro mpt emptying of this segment of bowel. The patient refused to be imaged beyond 95 minutes. CONCLUSION: Stasis of the isotope within the upper abdominal gastrointestinal tract. The patient has had some postoperative change. A normal appearing stomach is not present. There is very little emptying of this segment of bowel until the intervention with erythromycin. Donato Bradshaw MD on June 23, 2016 at 14:43 Board Certified Radiologist. This report was verified electronically.
[2016-06-23 16:02] VITALS: BP 155/92; PULSE 65; RESP 16; TEMP 98.1; O2SAT 100
[2016-06-23] MEDS ORDERED: IMIPRAMINE HCL 25 MG TAB PO SCH (21:00)
[2016-06-23] MEDS ORDERED: REMOVE OLD PATCH T-DERMAL SCH (21:00)
[2016-06-23] MEDS ORDERED: busPIRone HCL 5 MG TAB PO SCH (21:00)
[2016-06-26] MEDS ORDERED: REMOVE OLD DURAGESIC (FENTANYL) PATCH TD SCH (12:00)
== END 2016-06-23 18:17 | disposition home or self-care (01) ==
LOC: NEPE 22:38 → NEDA 06-23 01:07 → NEDH 06-23 05:07 → NEPFCDU 06-23 14:58
PROVIDERS: ADMIT Specialist; ATTEND Specialist
DX: N39.0 Urinary tract infection, site not specified (principal); B96.1 Klebsiella pneumoniae [K. pneumoniae] as the cause of diseases classified elsewhere; G89.29 Other chronic pain; I25.10 Atherosclerotic heart disease of native coronary artery without angina pectoris; Q21.1 Atrial septal defect; F41.9 Anxiety disorder, unspecified; R74.8 Abnormal levels of other serum enzymes; D64.9 Anemia, unspecified; I25.2 Old myocardial infarction; Z85.528 Personal history of other malignant neoplasm of kidney; Z87.74 Personal history of (corrected) congenital malformations of heart and circulatory system; Z90.5 Acquired absence of kidney; Z86.73 Personal history of transient ischemic attack (TIA), and cerebral infarction without residual deficits; Z98.84 Bariatric surgery status
CPT/HCPCS: 70450; 74181; 78264; 80053; 81001; 83690; 85025; 87077; 87086; 87186; 93005; 96361; 96374; 96375; 99285; A9541; G0378; J0696; J1170; J1364; J1650; J2060; J3480; J7030

== ENCOUNTER 2016-07-10 10:12 | Emergency (ER) | payer BC ==
[~2016-07-10] VITALS: Ht 157.5 cm; Wt 50.0 kg
[~2016-07-10 10:12] MED LIST changes: -DICY10 PO; -XIFA550T4 PO
[2016-07-10 10:14] VITALS: BP 193/102; PULSE 110; RESP 20; TEMP 99; O2SAT 97
[2016-07-10] MEDS ORDERED: SODIUM CHLOR 0.9% 1000 ML INJ 1,000 ML IV SCH (10:55)
[2016-07-10] MEDS ORDERED: LORazepam 2 MG/ML VIAL IV PUSH ONE ×2 (11:00→13:30)
[2016-07-10] MEDS ORDERED: HYDROmorphone HCL PF 1 MG/ML VIAL IVS ONE (11:00)
[2016-07-10] MEDS ORDERED: SODIUM CHLORIDE 0.9% FLUSH 5 ML FLUSH IVF PRN (11:00)
--- NOTE | 2016-07-10 11:09 | PD ---
HPI Chief Complaint: Complaint Time Seen by Provider: 10:55 Travel History International Travel<30 days: No Contact w/Intl Traveler<30days: No Traveled to known affect area: No History of Present Illness HPI The patient is a 56-year-old female who presents emergency department for nausea, vomiting, dry heaves, and dysuria. The patient has had multiple visits to the emergency department for chronic abdominal pain with a history of gastroparesis and multiple previous abdominal surgeries. The patient states she is on chronic pain medications including fentanyl patch 25 krista's every 72 hours and Dilaudid orally. The patient currently has a fentanyl patch on and took her last dose of Dilaudid this morning. The patient states she developed dysuria, frequency, urgency, suprapubic discomfort last night. She also complains of dry heaves this morning with nausea and vomiting. The patient denies any fever, chills, or sweats. The patient was followed by her primary physician, Dr. Gamez as well as a manager functional. The patient was recently admitted to the hospital in June for pancreatitis and underwent gastric emptying study as well as MRI of the abdomen. Patient's symptoms are moderate, possibly exacerbated by history of chronic abdominal pain and possible underlying urinary tract infection. She denies any alleviation of her symptoms with a fentanyl patch and oral Dilaudid. PFSH Past Medical History Hx Anticoagulant Therapy: No Asthma: No Blood Disorders: No Anxiety: Yes Depression: No Heart Rhythm Problems: No Cancer: Yes (kidney) Cardiovascular Problems: Yes ( [place] 2004) High Cholesterol: No Chemotherapy: Yes (KIDNEY CA) Chest Pain: No Congestive Heart Failure: No COPD: No Cerebrovascular Accident: Yes (2004) Diabetes: No Diminished Hearing: No Endocrine: No Gastrointestinal Disorders: Yes GERD: No Genitourinary: Yes (RIGHT NEPHRECTOMY) Headaches: Yes Hiatal Hernia: Yes Hypertension: No Immune Disorder: No Implanted Vascular Access Dvce: No Kidney Stones: No Musculoskeletal: No Neurologic: No Psychiatric: No Reproductive: No Respiratory: No Immunizations Current: Yes Migraines: Yes Myocardial Infarction: Yes (2005) Pneumonia: Yes Radiation Therapy: No Renal Failure: No Seizures: Yes Sleep Apnea: No Thyroid Disease: No Ulcer: No Menopausal: Yes : 1 Para: 1 Miscarriage: 0 : 0 Ectopic : No Ovarian Cysts: No Dilation and Curettage (D&C): Yes Tubal Ligation: Yes Past Surgical History Abdominal Surgery: Yes (total gastrectomy w/pouch 2002, hernia repair) Appendectomy: Yes Cardiac Surgery: Yes (pt states an occulator was placed in her heart 2005) Cholecystectomy: Yes Gynecologic Surgery: Yes (hysterectomy) Hysterectomy: Yes Thoracic Surgery: No Tonsillectomy: Yes Other Surgery: Yes (right kidney removed) Social History Alcohol Use: No Tobacco Use: No Substance Use: No Allergies-Medications (Allergen,Severity, Reaction): Coded Allergies: Compazine (Verified Allergy, Severe, SOB, 07/10/16) Gadolinium Derivatives (Verified Allergy, Severe, RESPIRATORY DISTRESS, 07/10/16) Lobster (Verified Allergy, Severe, Anaphylaxis, 07/10/16) Morphine (Verified Allergy, Severe, Hives, 07/10/16) PT HAVING HIVES AND ITCHING TO ARM ABOVE IV SITE AFTER ADMINISTRATION OF MORPHINE Phenergan (Verified Allergy, Severe, SOB, 07/10/16) Reglan (Verified Allergy, Severe, SOB, 07/10/16) Toradol (Verified Allergy, Severe, Shortness of Breath, 07/10/16) Zofran (Verified Allergy, Severe, SOB, 07/10/16) Penicillin (Verified Allergy, Mild, RASH, 07/10/16) Sulfa (Verified Allergy, Mild, RASH, 07/10/16) *MDRO Multi-Drug Resistant Organism (Verified Adverse Reaction, Unknown, ) 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) Uncoded Allergies: GADOLINIUM (Adverse Reaction, Severe, PT STOPPED BREATHING WITH GADO, ) PT STATES SHE STOPPED BREATHING AFTER HAVING GADO AT ANOTHER FACILITY. 06/23/16 [facility] Reported Meds & Prescriptions Reported Meds & Active Scripts Active Lidoderm Patch 12 HR (Lidocaine) 5% Patch 1 Patch TD DAILY Reported Buspirone (Buspirone HCl) 7.5 Mg Tab 7.5 Mg PO BID Valium (Diazepam) 10 Mg Tab 10 Mg PO TID Dilaudid (Hydromorphone HCl) 4 Mg Tab 4 Mg PO Q6HR Fentanyl Patch 72 HR (Fentanyl) 25 Mcg/Hr Patch 25 Mcg T-DERMAL Q72H Zyprexa (Olanzapine) 5 Mg Tab 5 Mg PO BID Cyanocobalamin Inj (Cyanocobalamin) 1,000 Mcg/Ml Inj 1,000 Mcg IM Q30D Hydroxyzine HCl 50 Mg Tab 50 Mg PO Q8HR PRN Imipramine HCL (Imipramine HCl) 25 Mg Tab 25 Mg PO HS Review of Systems Except as stated in HPI: all other systems reviewed are Neg Cardiovascular: No: Chest Pain or Discomfort Respiratory: No: Shortness of Breath Gastrointestinal: Positive: Nausea, Vomiting, Abdominal Pain Genitourinary: Positive: Urgency, Frequency, Dysuria Musculoskeletal: No: Myalgias Skin: No Rash Physical Exam Narrative GENERAL: Awake, alert, nontoxic-appearing 56-year-old female who appears her stated age and is in no acute respiratory distress. SKIN: Warm and dry. HEAD: Atraumatic. Normocephalic. EYES: Pupils equal and round. Pupils are slightly dilated bilateral 5 mm but reactive. ENT: No nasal bleeding or discharge. Mucous membranes pink and moist. NECK: Trachea midline. No JVD. CARDIOVASCULAR: Regular, tachycardic with a heart rate 105. RESPIRATORY: No accessory muscle use. Clear to auscultation. Breath sounds equal bilaterally. GASTROINTESTINAL: Abdomen soft, suprapubic discomfort and mild epigastric tenderness, but no rebound tenderness. Well-healed surgical scar. MUSCULOSKELETAL: No obvious deformities. No clubbing. No cyanosis. No edema. NEUROLOGICAL: Awake and alert. No obvious cranial nerve deficits. Motor grossly within normal limits. Normal speech. PSYCHIATRIC: Appropriate mood and affect; insight and judgment normal. Data Data Last Documented VS Vital Signs Date Time Temp Pulse Resp B/P Pulse Ox O2 Delivery O2 Flow Rate FiO2 07/10/16 12:35 90 18 153/91 99 Room Air 07/10/16 10:14 99.0 Orders Complete Blood Count With Diff (07/10/16 10:55) Comprehensive Metabolic Panel (07/10/16 10:55) Lipase (07/10/16 10:55) Urinalysis - C+S If Indicated (07/10/16 10:55) Iv Access Insert/Monitor (07/10/16 10:55) Ecg Monitoring (07/10/16 10:55) Oximetry (07/10/16 10:55) Sodium Chlor 0.9% 1000 Ml Inj (Ns 1000 M (07/10/16 10:55) Sodium Chloride 0.9% Flush (Ns Flush) (07/10/16 11:00) Hydromorphone Pf Inj (Dilaudid Pf Inj) (07/10/16 11:00) Lorazepam Inj (Ativan Inj) (07/10/16 11:00) Urine Culture (07/10/16 11:25) Hydromorphone Pf Inj (Dilaudid Pf Inj) (07/10/16 13:30) Lorazepam Inj (Ativan Inj) (07/10/16 13:30) Labs Laboratory Tests Test 07/10/16 07/10/16 11:25 11:36 Urine Color YELLOW Urine Turbidity HAZY Urine pH 6.0 Urine Specific Jackson 1.024 Urine Protein 100 mg/dL Urine Glucose (UA) NEG mg/dL Urine Ketones 10 mg/dL Urine Occult Blood SMALL Urine Nitrite NEG Urine Bilirubin NEG Urine Urobilinogen LESS THAN 2.0 MG/DL Urine Leukocyte Esterase SMALL Urine RBC 2 /hpf Urine WBC 5 /hpf Urine Squamous Epithelial 17 /hpf Cells Urine Bacteria MOD /hpf Urine Mucus MANY /lpf Microscopic Urinalysis Comment CULTURE INDICATED White Blood Count 4.5 TH/MM3 Red Blood Count 4.03 MIL/MM3 Hemoglobin 11.1 GM/DL Hematocrit 34.1 % Mean Corpuscular Volume 84.6 FL Mean Corpuscular Hemoglobin 27.6 PG Mean Corpuscular Hemoglobin 32.6 % Concent Red Cell Distribution Width 17.1 % Platelet Count 195 TH/MM3 Mean Platelet Volume 9.2 FL Neutrophils (%) (Auto) 77.5 % Lymphocytes (%) (Auto) 17.5 % Monocytes (%) (Auto) 4.9 % Eosinophils (%) (Auto) 0.1 % Basophils (%) (Auto) 0.0 % Neutrophils # (Auto) 3.5 TH/MM3 Lymphocytes # (Auto) 0.8 TH/MM3 Monocytes # (Auto) 0.2 TH/MM3 Eosinophils # (Auto) 0.0 TH/MM3 Basophils # (Auto) 0.0 TH/MM3 CBC Comment DIFF FINAL Differential Comment Sodium Level 140 MEQ/L Potassium Level 3.9 MEQ/L Chloride Level 107 MEQ/L Carbon Dioxide Level 26.9 MEQ/L Anion Gap 6 MEQ/L Blood Urea Nitrogen 14 MG/DL Creatinine 0.74 MG/DL Estimat Glomerular Filtration 81 ML/MIN Rate Random Glucose 105 MG/DL Calcium Level 9.3 MG/DL Total Bilirubin 0.4 MG/DL Aspartate Amino Transf 14 U/L (AST/SGOT) Alanine Aminotransferase 19 U/L (ALT/SGPT) Alkaline Phosphatase 83 U/L Total Protein 6.8 GM/DL Albumin 3.6 GM/DL Lipase 241 U/L MDM Medical Decision Making Medical Screen Exam Complete: Yes Emergency Medical Condition: Yes Medical Record Reviewed: Yes Interpretation(s) Laboratory Tests Test 07/10/16 07/10/16 11:25 11:36 Urine Color YELLOW Urine Turbidity HAZY Urine pH 6.0 Urine Specific Jackson 1.024 Urine Protein 100 mg/dL Urine Glucose (UA) NEG mg/dL Urine Ketones 10 mg/dL Urine Occult Blood SMALL Urine Nitrite NEG Urine Bilirubin NEG Urine Urobilinogen LESS THAN 2.0 MG/DL Urine Leukocyte Esterase SMALL Urine RBC 2 /hpf Urine WBC 5 /hpf Urine Squamous Epithelial 17 /hpf Cells Urine Bacteria MOD /hpf Urine Mucus MANY /lpf Microscopic Urinalysis Comment CULTURE INDICATED White Blood Count 4.5 TH/MM3 Red Blood Count 4.03 MIL/MM3 Hemoglobin 11.1 GM/DL Hematocrit 34.1 % Mean Corpuscular Volume 84.6 FL Mean Corpuscular Hemoglobin 27.6 PG Mean Corpuscular Hemoglobin 32.6 % Concent Red Cell Distribution Width 17.1 % Platelet Count 195 TH/MM3 Mean Platelet Volume 9.2 FL Neutrophils (%) (Auto) 77.5 % Lymphocytes (%) (Auto) 17.5 % Monocytes (%) (Auto) 4.9 % Eosinophils (%) (Auto) 0.1 % Basophils (%) (Auto) 0.0 % Neutrophils # (Auto) 3.5 TH/MM3 Lymphocytes # (Auto) 0.8 TH/MM3 Monocytes # (Auto) 0.2 TH/MM3 Eosinophils # (Auto) 0.0 TH/MM3 Basophils # (Auto) 0.0 TH/MM3 CBC Comment DIFF FINAL Differential Comment Sodium Level 140 MEQ/L Potassium Level 3.9 MEQ/L Chloride Level 107 MEQ/L Carbon Dioxide Level 26.9 MEQ/L Anion Gap 6 MEQ/L Blood Urea Nitrogen 14 MG/DL Creatinine 0.74 MG/DL Estimat Glomerular Filtration 81 ML/MIN Rate Random Glucose 105 MG/DL Calcium Level 9.3 MG/DL Total Bilirubin 0.4 MG/DL Aspartate Amino Transf 14 U/L (AST/SGOT) Alanine Aminotransferase 19 U/L (ALT/SGPT) Alkaline Phosphatase 83 U/L Total Protein 6.8 GM/DL Albumin 3.6 GM/DL Lipase 241 U/L Differential Diagnosis Differential diagnosis includes gastroparesis, gastritis, peptic ulcer disease, pancreatitis, chronic abdominal pain, abdominal migraine, UTI, malingering, drug -seeking behavior. Narrative Course IV was established, labs are drawn and sent, and the patient was placed on cardiac telemetry monitoring and continuous pulse oximetry monitoring. The patient was administered Dilaudid and IV fluids. The patient is allergic to Compazine, Phenergan, Reglan, and Zofran. The patient states she requires Ativan for her nausea. Therefore, the patient was administered Ativan intravenously for nausea. CBC reveals white count is normal, lipase is return to normal limits. UA reveals bacteria, but no significant white blood cells. However, patient has symptoms consistent with cystitis with pyuria on UA, therefore, will be treated with Macrobid and Pyridium. Patient requested a second dose of pain medication and nausea medication, therefore, was administered one more dose. The patient will be discharged home with a copy of her labs, is advised to follow-up with her primary physician and/or manager functional. Diagnosis Primary Impression: Abdominal pain Qualified Code: R10.30 - Lower abdominal pain Additional Impressions: Cystitis Pyuria Patient Instructions: General Instructions, Narcotic given in the ED Additional Instructions: Follow-up with your primary physician. Return if symptoms worsen or progress. Please provide the patient a copy of her labs at discharge. Ride home as you were administered benzodiazepines and narcotics. Med/Other Pt SpecificInfo: Prescription(s) given Scripts Phenazopyridine (Pyridium)200 Mg [id number] Mg PO Q8H PRN (DYSURIA) 2 Days Ref 0 Prov:John Paige MD 07/10/16 Nitrofurantoin Monohydrate Macrocrystals (Macrobid)100 Mg [id number] Mg PO BID 10 Days Ref 0 Prov:John Paige MD 07/10/16 Disposition: 01 DISCHARGE HOME Condition: Stable John Paige MD Jul 10, 2016 11:09
[2016-07-10 11:41] LABS: BACTERIA, URINE MOD /hpf; BLOOD, URINE SMALL (NEG); COMMENT (UR) CULTURE INDICATED; CULTURE IF INDICATED CULTURE INDICATED; GLUCOSE,URINE NEG (NEG); KETONE, URINE 10 mg/dL (NEG); MUCUS URINE MANY /lpf (OCC); NITRITE,URINE NEG (NEG); SQUAMOUS EPITHELIAL CELL URINE 17 /hpf (0-5); URINE COLOR YELLOW (YELLW/STRAW)
[2016-07-10 12:14] VITALS: O2SAT 97
[2016-07-10 12:15] VITALS: BP 171/103; PULSE 76; RESP 18; O2SAT 97
[2016-07-10 12:26] LABS: AUTOMATED NEUTROPHIL # 3.5 TH/MM3 (1.8-7.7); EOSINOPHIL % 0.1 % (0.0-4.0); HEMATOCRIT 34.1 % (35.0-46.0); HEMO FLAGS DIFF FINAL; LYMPH % 17.5 % (9.0-44.0); LYMPHOCYTE # 0.8 TH/MM3 (1.0-4.8); MEAN CELL VOLUME 84.6 FL (80.0-100.0); MEAN CORPUSCULAR HEMOGLOBIN 27.6 PG (27.0-34.0); MEAN CORPUSCULAR HGB CONC 32.6 % (32.0-36.0); MONO % 4.9 % (0.0-8.0); NEUT % 77.5 % (16.0-70.0); PLATELET COUNT 195 TH/MM3 (150-450); RED BLOOD COUNT 4.03 MIL/MM3 (4.00-5.30); RED CELL DISTRIBUTION WIDTH 17.1 % (11.6-17.2); WHITE BLOOD COUNT 4.5 TH/MM3 (4.0-11.0)
[2016-07-10 12:35] VITALS: BP 153/91; PULSE 90; RESP 18; O2SAT 99
[2016-07-10 12:52] LABS: ALT (GPT) 19 U/L (10-53); ANION GAP 6 MEQ/L (5-15); AST (GOT) 14 U/L (15-37); BICARBONATE 26.9 MEQ/L (21.0-32.0); BLOOD UREA NITROGEN 14 MG/DL (7-18); CHLORIDE 107 MEQ/L (98-107); GLOMERULAR FILTRATION RATE 81 ML/MIN (>89); POTASSIUM 3.9 MEQ/L (3.5-5.1); SODIUM (NA) 140 MEQ/L (136-145)
[2016-07-10 12:54] LABS: ALKALINE PHOSPHATASE 83 U/L (45-117); TOTAL BILIRUBIN ADULT 0.4 MG/DL (0.2-1.0)
[2016-07-10] MEDS ORDERED: PYRI200T4 PO (13:24)
[2016-07-10] MEDS ORDERED: MACR100C2 PO (13:24)
[2016-07-10] MEDS ORDERED: HYDROmorphone HCL PF 1 MG/ML VIAL IV PUSH ONE (13:30)
[2016-07-10 16:19] VITALS: BP 153/86
[2016-07-11] MEDS ORDERED: CIPR-9 PO ×2 (08:04→08:06)
== END 2016-07-10 18:54 | disposition home or self-care (01) ==
LOC: NEPE 10:12
DX: R10.30 Lower abdominal pain, unspecified (principal); N30.90 Cystitis, unspecified without hematuria; N39.0 Urinary tract infection, site not specified; R11.2 Nausea with vomiting, unspecified; I25.2 Old myocardial infarction; Z87.19 Personal history of other diseases of the digestive system; Z86.79 Personal history of other diseases of the circulatory system; Z85.528 Personal history of other malignant neoplasm of kidney; Z86.73 Personal history of transient ischemic attack (TIA), and cerebral infarction without residual deficits; Z87.448 Personal history of other diseases of urinary system; Z86.69 Personal history of other diseases of the nervous system and sense organs; Z87.01 Personal history of pneumonia (recurrent); Z86.59 Personal history of other mental and behavioral disorders
CPT/HCPCS: 80053; 81001; 83690; 85025; 87086; 96361; 96374; 96375; 96376; 99284; J1170; J2060; J7030

== ENCOUNTER 2016-07-11 06:56 | Observation (INO) | payer BC ==
[2016-07-11] VITALS (8 sets, daily range): BP systolic 125–181; BP diastolic 58–103; PULSE 60–87; RESP 14–22; TEMP 97.4–98.9; O2SAT 93–98
[~2016-07-11] VITALS: Ht 157.5 cm; Wt 50.0 kg
[~2016-07-11 06:56] MED LIST changes: +MACR100C2 PO; +PYRI200T4 PO; -WALKER WHEELS/F1 MIS
[2016-07-11] MEDS ORDERED: SODIUM CHLOR 0.9% 1000 ML INJ 1,000 ML IV SCH (07:17)
[2016-07-11] MEDS ORDERED: LORazepam 2 MG/ML VIAL IV PUSH ONE (07:30)
[2016-07-11] MEDS ORDERED: SODIUM CHLORIDE 0.9% FLUSH 5 ML FLUSH IVF PRN (07:30)
--- NOTE | 2016-07-11 07:40 | PD ---
HPI Chief Complaint: GI Complaint Time Seen by Provider: 07:13 Travel History International Travel<30 days: No Contact w/Intl Traveler<30days: No Traveled to known affect area: No History of Present Illness HPI Patient is a 56-year-old female who presents to emergency room with complaints of chronic abdominal pain, dysuria with nausea vomiting and dry heaves. Patient reports that she was seen in the hospital a few days ago and was admitted to the hospital for acute pancreatitis, reports that she was seen in the emergency room yesterday and was discharged with diagnoses of urinary tract infection and was discharged home on Macrobid as well as Pyridium. Patient reports that she keep down her medications and has been dry heaving. Reports that she feels nauseous and can't keep anything down at this time. Patient reports that the only thing that helps the nausea is Ativan. Patient does have history of chronic abdominal pain with history of gastroparesis, pancreatitis and has history of multiple abdominal surgeries in the past. She is currently on a fentanyl patch as well as or Dilaudid on a regular basis for chronic pain. Patient does have chronic nausea and has multiple allergies to most of the antiemetics and his prescribed Ativan and Valium as an outpatient help with her symptoms. PFSH Past Medical History Hx Anticoagulant Therapy: No Asthma: No Blood Disorders: No Anxiety: Yes Depression: No Heart Rhythm Problems: No Cancer: Yes (kidney) Cardiovascular Problems: Yes ( CT 2004) High Cholesterol: No Chemotherapy: Yes (KIDNEY ) Chest Pain: No Congestive Heart Failure: No COPD: No Cerebrovascular Accident: Yes (2004) Diabetes: No Diminished Hearing: No Endocrine: No Gastrointestinal Disorders: Yes GERD: No Genitourinary: Yes (RIGHT NEPHRECTOMY) Headaches: Yes Hiatal Hernia: Yes Hypertension: No Immune Disorder: No Implanted Vascular Access Dvce: No Kidney Stones: No Musculoskeletal: No Neurologic: No Psychiatric: No Reproductive: No Respiratory: No Immunizations Current: Yes Migraines: Yes Myocardial Infarction: Yes (2005) Pneumonia: Yes Radiation Therapy: No Renal Failure: No Seizures: Yes Sleep Apnea: No Thyroid Disease: No Ulcer: No Tetanus Vaccination: < 5 Years Influenza Vaccination: Yes ?: Not Menopausal: Yes : 1 Para: 1 Miscarriage: 0 : 0 Ectopic : No Ovarian Cysts: No Dilation and Curettage (D&C): Yes Tubal Ligation: Yes Past Surgical History Abdominal Surgery: Yes (total gastrectomy w/pouch 2002, hernia repair) Appendectomy: Yes Cardiac Surgery: Yes (pt states an occulator was placed in her heart 2005) Cholecystectomy: Yes Gynecologic Surgery: Yes (hysterectomy) Hysterectomy: Yes Thoracic Surgery: No Tonsillectomy: Yes Other Surgery: Yes (right kidney removed) Social History Alcohol Use: No Tobacco Use: No Substance Use: No Allergies-Medications (Allergen,Severity, Reaction): Coded Allergies: Compazine (Verified Allergy, Severe, SOB, 07/11/16) Gadolinium Derivatives (Verified Allergy, Severe, RESPIRATORY DISTRESS, 07/11/16) Lobster (Verified Allergy, Severe, Anaphylaxis, 07/11/16) Morphine (Verified Allergy, Severe, Hives, 07/11/16) PT HAVING HIVES AND ITCHING TO ARM ABOVE IV SITE AFTER ADMINISTRATION OF MORPHINE Phenergan (Verified Allergy, Severe, SOB, 07/11/16) Reglan (Verified Allergy, Severe, SOB, 07/11/16) Toradol (Verified Allergy, Severe, Shortness of Breath, 07/11/16) Zofran (Verified Allergy, Severe, SOB, 07/11/16) Penicillin (Verified Allergy, Mild, RASH, 07/11/16) Sulfa (Verified Allergy, Mild, RASH, 07/11/16) *MDRO Multi-Drug Resistant Organism (Verified Adverse Reaction, Unknown, ) 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) Uncoded Allergies: GADOLINIUM (Adverse Reaction, Severe, PT STOPPED BREATHING WITH GADO, ) PT STATES SHE STOPPED BREATHING AFTER HAVING GADO AT ANOTHER FACILITY. 06/23/16 VSV Reported Meds & Prescriptions Reported Meds & Active Scripts Active Cipro (Ciprofloxacin HCl) 500 Mg Tab 500 Mg PO BID 7 Days Pyridium (Phenazopyridine HCl) 200 Mg Tab 200 Mg PO Q8H PRN 2 Days Macrobid (Nitrofurantoin Monoh/Nitrofur Macro) 100 Mg Cap 100 Mg PO BID 10 Days Lidoderm Patch 12 HR (Lidocaine) 5% Patch 1 Patch TD DAILY Reported Buspirone (Buspirone HCl) 7.5 Mg Tab 7.5 Mg PO BID Valium (Diazepam) 10 Mg Tab 10 Mg PO TID Dilaudid (Hydromorphone HCl) 4 Mg Tab 4 Mg PO Q6HR Fentanyl Patch 72 HR (Fentanyl) 25 Mcg/Hr Patch 25 Mcg T-DERMAL Q72H Zyprexa (Olanzapine) 5 Mg Tab 5 Mg PO BID Cyanocobalamin Inj (Cyanocobalamin) 1,000 Mcg/Ml Inj 1,000 Mcg IM Q30D Hydroxyzine HCl 50 Mg Tab 50 Mg PO Q8HR PRN Imipramine HCL (Imipramine HCl) 25 Mg Tab 25 Mg PO HS Review of Systems General / Constitutional: No: Fever Eyes: No: Visual changes HENT: No: Headaches Cardiovascular: No: Chest Pain or Discomfort Respiratory: No: Shortness of Breath Gastrointestinal: Positive: Nausea, Vomiting, Abdominal Pain Genitourinary: Positive: Urgency, Frequency, Dysuria Musculoskeletal: No: Pain Skin: No Rash Neurologic: No: Weakness Psychiatric: No: Depression Endocrine: No: Polydipsia Hematologic/Lymphatic: No: Easy Bruising Physical Exam Narrative GENERAL: No acute distress, nontoxic SKIN: Warm and dry. HEAD: Atraumatic. Normocephalic. EYES: Pupils equal and round. No scleral icterus. No injection or drainage. ENT: No nasal bleeding or discharge. Mucous membranes pink and moist. NECK: Trachea midline. No JVD. CARDIOVASCULAR: Regular rate and rhythm. No murmur appreciated. RESPIRATORY: No accessory muscle use. Clear to auscultation. Breath sounds equal bilaterally. GASTROINTESTINAL: Abdomen soft, non-tender, nondistended. MUSCULOSKELETAL: No obvious deformities. No clubbing. No cyanosis. No edema. NEUROLOGICAL: Awake and alert. No obvious cranial nerve deficits. Motor grossly within normal limits. Normal speech. PSYCHIATRIC: Appropriate mood and affect; insight and judgment normal. Data Data Last Documented VS Vital Signs Date Time Temp Pulse Resp B/P Pulse Ox O2 Delivery O2 Flow Rate FiO2 07/11/16 07:15 71 18 157/89 97 Room Air 07/11/16 06:58 98.6 Orders Complete Blood Count With Diff (07/11/16 07:17) Comprehensive Metabolic Panel (07/11/16 07:17) Lipase (07/11/16 07:17) Urinalysis - C+S If Indicated (07/11/16 07:17) Sodium Chlor 0.9% 1000 Ml Inj (Ns 1000 M (07/11/16 07:17) Sodium Chloride 0.9% Flush (Ns Flush) (07/11/16 07:30) Lorazepam Inj (Ativan Inj) (07/11/16 07:30) Electrocardiogram (07/11/16 ) Hydromorphone Pf Inj (Dilaudid Pf Inj) (07/11/16 08:00) Ciprofloxacin 400 Mg Premix (Cipro 400 M (07/11/16 08:15) Urine Culture (07/11/16 07:30) Labs Laboratory Tests Test 07/11/16 07/11/16 07:30 07:35 Urine Color ORANGE Urine Turbidity HAZY Urine pH 5.5 Urine Specific [place] 1.014 Urine Protein TRACE mg/dL Urine Glucose (UA) NEG mg/dL Urine Ketones NEG mg/dL Urine Occult Blood NEG Urine Nitrite POS Urine Bilirubin NEG Urine Urobilinogen 2.0 MG/DL Urine Leukocyte Esterase NEG Urine RBC 7 /hpf Urine WBC 7 /hpf Urine Squamous Epithelial 19 /hpf Cells Urine Bacteria FEW /hpf Microscopic Urinalysis Comment CULTURE INDICATED White Blood Count 4.3 TH/MM3 Red Blood Count 4.34 MIL/MM3 Hemoglobin 12.4 GM/DL Hematocrit 36.9 % Mean Corpuscular Volume 85.0 FL Mean Corpuscular Hemoglobin 28.6 PG Mean Corpuscular Hemoglobin 33.7 % Concent Red Cell Distribution Width 16.8 % Platelet Count 206 TH/MM3 Mean Platelet Volume 8.7 FL Neutrophils (%) (Auto) 76.1 % Lymphocytes (%) (Auto) 19.4 % Monocytes (%) (Auto) 3.7 % Eosinophils (%) (Auto) 0.7 % Basophils (%) (Auto) 0.1 % Neutrophils # (Auto) 3.3 TH/MM3 Lymphocytes # (Auto) 0.8 TH/MM3 Monocytes # (Auto) 0.2 TH/MM3 Eosinophils # (Auto) 0.0 TH/MM3 Basophils # (Auto) 0.0 TH/MM3 CBC Comment DIFF FINAL Differential Comment Sodium Level 139 MEQ/L Potassium Level 3.7 MEQ/L Chloride Level 106 MEQ/L Carbon Dioxide Level 23.9 MEQ/L Anion Gap 9 MEQ/L Blood Urea Nitrogen 14 MG/DL Creatinine 0.86 MG/DL Estimat Glomerular Filtration 68 ML/MIN Rate Random Glucose 109 MG/DL Calcium Level 9.1 MG/DL Total Bilirubin 0.5 MG/DL Aspartate Amino Transf 12 U/L (AST/SGOT) Alanine Aminotransferase 21 U/L (ALT/SGPT) Alkaline Phosphatase 94 U/L Total Protein 7.5 GM/DL Albumin 4.2 GM/DL Lipase 261 U/L MDM Medical Decision Making Medical Screen Exam Complete: Yes Emergency Medical Condition: Yes Interpretation(s) EKG at 0743 NSR at 73bpm, qt/qtc: 441/467, lbbb, no acute st or t wave changes Vital Signs Date Time Temp Pulse Resp B/P Pulse Ox O2 Delivery O2 Flow Rate FiO2 07/11/16 06:58 98.6 87 14 181/103 98 Room Air Differential Diagnosis Gastroparesis, acute on chronic pain, pancreatitis, UTI, pyelonephritis, CAD, gerd Narrative Course Patient is a 56-year-old female who presents to emergency room with complaints of chronic abdominal pain with nausea, with dry heaves with dysuria. Patient was just seen in emergency yesterday was diagnosed with a urinary tract infection and was sent home on Pyridium as well as Macrobid. Patient reports that she cannot tolerate these medications at home, reports that she has history of renal cell cancer as well as history of right-sided nephrectomy, reports that "I only have one kidney left." Patient reports that she feels dehydrated and the only thing that helps with her nausea is Ativan. Patient also requesting pain medications that she is chronic abdominal pain which is at baseline for her.. Patient was recently admitted to the hospital and had multiple test performed. Gastric emptying study performed on June 23, 2016: Stasis of the isotope within the upper abdominal gastrointestinal tract. The patient has some postop changes. A normal appearing stomach is not present. There is very little emptying of the segment of the bowel into the intervention with erythromycin. Abdominal MRI on June 23, 2016: 1. Status post right nephrectomy and gastrectomy and cholecystectomy 2. No acute intra-abdominal abnormality seen 3. Increased signal seen at the posterior lung base likely representing some degree of atelectasis or consolidation Line was established. Plan to recheck patient's labwork including CBC, BMP, lipase, UA. Plan to monitor patient and administer IV fluids as well as antiemetics. Urine culture from June 23, 2016 reviewed, patient did grow oiut >100,000 Klebsiella Pneumoniae sensitive to cipro and Indeterminate to Nitrofurantoin, will change her antibiotics to CIPRO CBC WBC 4.3 Hemoglobin 12.4 Hematocrit 36.9 Platelets 206 BMP Sodium 139 Chloride 106 Potassium 3.7 BUN 14 Creatinine 0.86 Lipase 261 UA: [place] and hazy urine with positive nitrites and 7 white blood cells with few bacteria. Prior cultures reviewed, give patient a dose of ciprofloxacin for UTI. Patient reevaluated, patient reports that she still feels nauseous and has pain all of her abdomen. Patient reports that this is her second visit to the emergency room she did come to the emergency room yesterday for evaluation. Reports that she cannot go home and does not feel comfortable going home. Patient requesting to be admitted to the hospital for observation for IV fluids. Case reviewed with Dr. Hall Request obs for intractable abdominal pain, requested that I inform patient that she is to be NPO and will only get her home meds for pain. This was relayed to patient and patient understands. Diagnosis Primary Impression: Abdominal pain Qualified Code: R10.84 - Generalized abdominal pain Additional Impressions: Pyuria Nausea & vomiting Qualified Code: R11.2 - Non-intractable vomiting with nausea, unspecified vomiting type UTI (urinary tract infection) Qualified Code: N30.00 - Acute cystitis without hematuria Admitting Information Admitting Physician Requests: Observation Patient Instructions: General Instructions, Narcotic given in the ED Additional Instructions: Please follow-up with all cultures from today Please call your doctor first thing in the morning for earliest follow-up appointment Please complete full course of antibiotics Return to the emergency room if symptoms return or progress Return to the emergency room as needed Med/Other Pt SpecificInfo: Prescription(s) given Scripts Ciprofloxacin (Cipro)500 Mg [id number] Mg PO BID 7 Days Ref 0 Prov:Shawna Lindsay DO 07/11/16 Disposition: 01 DISCHARGE HOME Condition: Stable Shawna Lindsay DO Jul 11, 2016 07:40
[2016-07-11 07:49] LABS: AUTOMATED NEUTROPHIL # 3.3 TH/MM3 (1.8-7.7); BASOPHIL % 0.1 % (0.0-2.0); EOSINOPHIL % 0.7 % (0.0-4.0); HEMATOCRIT 36.9 % (35.0-46.0); HEMO FLAGS DIFF FINAL; LYMPH % 19.4 % (9.0-44.0); LYMPHOCYTE # 0.8 TH/MM3 (1.0-4.8); MEAN CORPUSCULAR HEMOGLOBIN 28.6 PG (27.0-34.0); MEAN CORPUSCULAR HGB CONC 33.7 % (32.0-36.0); MONO % 3.7 % (0.0-8.0); NEUT % 76.1 % (16.0-70.0); PLATELET COUNT 206 TH/MM3 (150-450); RED BLOOD COUNT 4.34 MIL/MM3 (4.00-5.30); RED CELL DISTRIBUTION WIDTH 16.8 % (11.6-17.2); WHITE BLOOD COUNT 4.3 TH/MM3 (4.0-11.0)
[2016-07-11] MEDS ORDERED: HYDROmorphone HCL PF 1 MG/ML VIAL IVS ONE (08:00)
[2016-07-11] MEDS ORDERED: CIPR-9 PO ×2 (08:04→08:06)
[2016-07-11 08:11] LABS: BACTERIA, URINE FEW /hpf; BLOOD, URINE NEG (NEG); GLUCOSE,URINE NEG (NEG); KETONE, URINE NEG (NEG); PH, URINE 5.5 (5.0-8.5); SQUAMOUS EPITHELIAL CELL URINE 19 /hpf (0-5)
[2016-07-11 08:13] LABS: ALT (GPT) 21 U/L (10-53); AST (GOT) 12 U/L (15-37); BICARBONATE 23.9 MEQ/L (21.0-32.0); BLOOD UREA NITROGEN 14 MG/DL (7-18); GLOMERULAR FILTRATION RATE 68 ML/MIN (>89)
[2016-07-11 08:14] LABS: NITRITE,URINE POS (NEG)
[2016-07-11 08:15] LABS: URINE COLOR ORANGE (YELLW/STRAW)
[2016-07-11] MEDS ORDERED: CIPROFLOXACIN 400 MG PREMIX 200 ML IV ONE (08:15)
[2016-07-11 08:16] LABS: COMMENT (UR) CULTURE INDICATED; CULTURE IF INDICATED CULTURE INDICATED
[2016-07-11 08:25] LABS: ANION GAP 9 MEQ/L (5-15); CHLORIDE 106 MEQ/L (98-107); POTASSIUM 3.7 MEQ/L (3.5-5.1); SODIUM (NA) 139 MEQ/L (136-145)
[2016-07-11 08:42] LABS: ALKALINE PHOSPHATASE 94 U/L (45-117); TOTAL BILIRUBIN ADULT 0.5 MG/DL (0.2-1.0)
[2016-07-11] MEDS ORDERED: PHENAZOPYRIDINE HCL 200 MG TAB PO PRN (09:30)
[2016-07-11] MEDS: OLANZapine 5 MG TAB PO SCH ×2 (09:30→21:44)
[2016-07-11] MEDS ORDERED: NALOXONE HCL 0.4 MG/ML AMP IV PRN (09:30)
[2016-07-11] MEDS ORDERED: hydrOXYzine HCL 50 MG TAB PO PRN (09:30)
[2016-07-11] MEDS ORDERED: SODIUM CHLORIDE 0.9% FLUSH 5 ML FLUSH FLUSH PRN (09:30)
[2016-07-11] MEDS ORDERED: CYANOCOBALAMIN 1000 MCG/ML VIAL IM SCH (10:00)
[2016-07-11] MEDS: SODIUM CHLOR 0.9% 1000 ML INJ 1,000 ML IV SCH ×2 (10:02→21:43)
[2016-07-11] MEDS: HEPARIN SODIUM - SQ 10,000 UNITS/ML VIAL SQ SCH ×2 (10:13→21:45)
[2016-07-11] MEDS: fentaNYL 25 MCG/HR PATCH T-DERMAL SCH ×2 (11:00→11:34)
--- NOTE | 2016-07-11 11:33 | HHI.HP ---
HPI Service [facility] Primary Care Physician Clotilde Gamez M.D. Admission Diagnosis UTI, chronic abdominal pain Diagnoses: Travel History International Travel<30 Days: No Contact w/Intl Traveler <30 Da: No Traveled to Known Affected Are: No History of Present Illness This is a very pleasant 56-year-old female patient of Dr. Gamez. She presented to the emergency department at [facility] with abdominal pain, nausea, vomiting and burning when urinating. She has chronic recurrent abdominal pain. She stated that she has an abnormal gastric emptying study. She has seen Dr. Hoover in the past. No fever chills or diaphoresis. She was seen by the undersigned in room C 34. She is alert and oriented. She is requesting IV Dilaudid. She takes oral Dilaudid normally as prescribed by neurologist Dr. Ortiz. She also takes a fentanyl patch which apparently is due to be changed today according to her statement. She lost about 10 pounds over the last 2 weeks. Review of Systems Other Weight loss, abdominal pain, nausea, vomiting, dysuria, urinary frequency, 10 systems reviewed otherwise negative Past Family Social History Past Medical History Delayed gastric emptying malnutrition Anxiety Chronic pain syndrome Heart attack in 2004 Renal cancer involving her right kidney Past Surgical History Right nephrectomy Gastrectomy with pouch in 2002 Hernia repair Hysterectomy Cholecystectomy She mentioned a device placed in her heart in 2005 Reported Medications Reported Meds & Active Scripts Active Cipro (Ciprofloxacin HCl) 500 Mg Tab 500 Mg PO BID 7 Days Pyridium (Phenazopyridine HCl) 200 Mg Tab 200 Mg PO Q8H PRN 2 Days Macrobid (Nitrofurantoin Monoh/Nitrofur Macro) 100 Mg Cap 100 Mg PO BID 10 Days Lidoderm Patch 12 HR (Lidocaine) 5% Patch 1 Patch TD DAILY Reported Buspirone (Buspirone HCl) 7.5 Mg Tab 7.5 Mg PO BID Valium (Diazepam) 10 Mg Tab 10 Mg PO TID Dilaudid (Hydromorphone HCl) 4 Mg Tab 4 Mg PO Q6HR Fentanyl Patch 72 HR (Fentanyl) 25 Mcg/Hr Patch 25 Mcg T-DERMAL Q72H Zyprexa (Olanzapine) 5 Mg Tab 5 Mg PO BID Cyanocobalamin Inj (Cyanocobalamin) 1,000 Mcg/Ml Inj 1,000 Mcg IM Q30D Hydroxyzine HCl 50 Mg Tab 50 Mg PO Q8HR PRN Imipramine HCL (Imipramine HCl) 25 Mg Tab 25 Mg PO HS Allergies: Coded Allergies: Compazine (Verified Allergy, Severe, SOB, 07/11/16) Gadolinium Derivatives (Verified Allergy, Severe, RESPIRATORY DISTRESS, 07/11/16) Lobster (Verified Allergy, Severe, Anaphylaxis, 07/11/16) Morphine (Verified Allergy, Severe, Hives, 07/11/16) PT HAVING HIVES AND ITCHING TO ARM ABOVE IV SITE AFTER ADMINISTRATION OF MORPHINE Phenergan (Verified Allergy, Severe, SOB, 07/11/16) Reglan (Verified Allergy, Severe, SOB, 07/11/16) Toradol (Verified Allergy, Severe, Shortness of Breath, 07/11/16) Zofran (Verified Allergy, Severe, SOB, 07/11/16) Penicillin (Verified Allergy, Mild, RASH, 07/11/16) Sulfa (Verified Allergy, Mild, RASH, 07/11/16) *MDRO Multi-Drug Resistant Organism (Verified Adverse Reaction, Unknown, ) 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) Uncoded Allergies: GADOLINIUM (Adverse Reaction, Severe, PT STOPPED BREATHING WITH GADO, ) PT STATES SHE STOPPED BREATHING AFTER HAVING GADO AT ANOTHER FACILITY. 06/23/16 VSV Family History Reviewed but not contributory Social History No smoking alcohol or illicit drug use Physical Exam Vital Signs Vital Signs Date Time Temp Pulse Resp B/P Pulse Ox O2 Delivery O2 Flow Rate FiO2 07/11/16 07:15 71 18 157/89 97 Room Air 07/11/16 06:58 98.6 87 14 181/103 98 Room Air Physical Exam GENERAL: This is a pleasant, poorly -nourished, well-developed patient, looking anxious. SKIN: No rashes, ecchymoses or lesions. Cool and dry. HEAD: Atraumatic. Normocephalic. No temporal or scalp tenderness. EYES: Pupils equal round and reactive. Extraocular motions intact. No scleral icterus. No injection or drainage. ENT: Nose without bleeding, purulent drainage or septal hematoma. Throat without erythema, tonsillar hypertrophy or exudate. Uvula midline. Airway patent. NECK: Trachea midline. No JVD or lymphadenopathy. Supple, nontender, no meningeal signs. CARDIOVASCULAR: Regular rate and rhythm without murmurs, gallops, or rubs. RESPIRATORY: Clear to auscultation. Breath sounds equal bilaterally. No wheezes , rales, or rhonchi. GASTROINTESTINAL: Abdomen tender on very light touch, voluntary guarding . MUSCULOSKELETAL: Extremities without clubbing, cyanosis, or edema. No joint tenderness, effusion, or edema noted. NEUROLOGICAL: Awake and alert. Normal speech. Laboratory Laboratory Tests Test 07/11/16 07/11/16 07:30 07:35 Urine Color ORANGE Urine Turbidity HAZY Urine pH 5.5 Urine Specific [place] 1.014 Urine Protein TRACE Urine Glucose (UA) NEG Urine Ketones NEG Urine Occult Blood NEG Urine Nitrite POS Urine Bilirubin NEG Urine Urobilinogen 2.0 Urine Leukocyte Esterase NEG Urine RBC 7 Urine WBC 7 Urine Squamous Epithelial 19 Cells Urine Bacteria FEW Microscopic Urinalysis Comment CULTURE INDICATED White Blood Count 4.3 Red Blood Count 4.34 Hemoglobin 12.4 Hematocrit 36.9 Mean Corpuscular Volume 85.0 Mean Corpuscular Hemoglobin 28.6 Mean Corpuscular Hemoglobin 33.7 Concent Red Cell Distribution Width 16.8 Platelet Count 206 Mean Platelet Volume 8.7 Neutrophils (%) (Auto) 76.1 Lymphocytes (%) (Auto) 19.4 Monocytes (%) (Auto) 3.7 Eosinophils (%) (Auto) 0.7 Basophils (%) (Auto) 0.1 Neutrophils # (Auto) 3.3 Lymphocytes # (Auto) 0.8 Monocytes # (Auto) 0.2 Eosinophils # (Auto) 0.0 Basophils # (Auto) 0.0 CBC Comment DIFF FINAL Differential Comment Sodium Level 139 Potassium Level 3.7 Chloride Level 106 Carbon Dioxide Level 23.9 Anion Gap 9 Blood Urea Nitrogen 14 Creatinine 0.86 Estimat Glomerular Filtration 68 Rate Random Glucose 109 Calcium Level 9.1 Total Bilirubin 0.5 Aspartate Amino Transf 12 (AST/SGOT) Alanine Aminotransferase 21 (ALT/SGPT) Alkaline Phosphatase 94 Total Protein 7.5 Albumin 4.2 Lipase 261 Date/Time Procedure Status Source Growth 07/11/16 07:30 Urine Culture Received Urine Clean Catch Pending Result Diagram: 07/11/1673407/11/1635 Assessment and Plan Assessment and Plan Assessment Intractable nausea and vomiting Dysuria Chronic pain syndrome Narcotic dependence Management The patient is placed on observation IV fluids IV Cipro Continue oral medications Once her vomiting abates she will be discharged Follow-up with gastroenterology as outpatient It was explained to the patient that this is imperative for her to try to get off narcotics as soon as possible As this will only perpetuate her problems Discussed with emergency physician Dr. Alcantar Discussed with nurse Carmen Jo MD Jul 11, 2016 11:33
[2016-07-11] MEDS: LORazepam 2 MG/ML VIAL IV PUSH PRN ×2 (11:35→21:45)
[2016-07-11] MEDS: DIAZEPAM 10 MG TAB PO SCH ×2 (13:05→17:23)
[2016-07-11] MEDS: HYDROmorphone HCL 4 MG TAB PO SCH ×2 (14:51→21:00)
[2016-07-11 17:23] LABS: MAGNESIUM 1.8 MG/DL (1.5-2.5)
[2016-07-11] MEDS ORDERED: SUMAtriptan SUCCINATE 50 MG TAB PO PRN (18:45)
[2016-07-11] MEDS ORDERED: REMOVE OLD PATCH T-DERMAL SCH (21:00)
[2016-07-11] MEDS: busPIRone HCL 5 MG TAB PO SCH (21:00)
[2016-07-11] MEDS ORDERED: IMIPRAMINE HCL 25 MG TAB PO SCH (21:00)
[2016-07-11] MEDS: CIPROFLOXACIN 200 MG PREMIX 100 ML IV SCH (21:43)
[2016-07-11] MEDS: SODIUM CHLORIDE 0.9% FLUSH 5 ML FLUSH FLUSH SCH (21:45)
[2016-07-12] MEDS: HYDROmorphone HCL 4 MG TAB PO SCH ×2 (02:59→10:43)
[2016-07-12] MEDS: LORazepam 2 MG/ML VIAL IV PUSH PRN (03:00)
[2016-07-12 05:08] LABS: HEMATOCRIT 33.4 % (35.0-46.0); HEMO FLAGS AUTO DIFF; MEAN CELL VOLUME 90.3 FL (80.0-100.0); PLATELET COUNT 144 TH/MM3 (150-450); RED BLOOD COUNT 3.69 MIL/MM3 (4.00-5.30); RED CELL DISTRIBUTION WIDTH 17.4 % (11.6-17.2); WHITE BLOOD COUNT 3.4 TH/MM3 (4.0-11.0)
[2016-07-12 05:37] LABS: BICARBONATE 26.4 MEQ/L (21.0-32.0); POTASSIUM 3.7 MEQ/L (3.5-5.1)
[2016-07-12] MEDS: SODIUM CHLOR 0.9% 1000 ML INJ 1,000 ML IV SCH (05:40)
[2016-07-12 06:06] VITALS: BP 143/81; PULSE 72; RESP 18; TEMP 98.8; O2SAT 93
[2016-07-12 06:42] LABS: EOSINOPHILS 6 % (0-4); NEUTROPHIL # MANUAL DIFF 1.6 TH/MM3 (1.8-7.7); POLYS (SEG NEUTROPHILS) 47 % (16-70); WBC DIFF SAMPLE 100
[2016-07-12 06:43] LABS: PLATELET ESTIMATE SMEAR LOW (NORMAL); PLATELET MORPHOLOGY NORMAL (NORMAL); SCAN/DIFF FINAL DIFF MANUAL
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
[2016-07-12 08:28] VITALS: BP 158/79; PULSE 73; RESP 20; TEMP 98.5; O2SAT 96
[2016-07-12] MEDS ORDERED: LIDOCAINE HCL 5% PATCH TD SCH (09:00)
[2016-07-12] MEDS: CIPROFLOXACIN 200 MG PREMIX 100 ML IV SCH (09:00)
[2016-07-12] MEDS: HEPARIN SODIUM - SQ 10,000 UNITS/ML VIAL SQ SCH (10:00)
[2016-07-12] MEDS: DIAZEPAM 10 MG TAB PO SCH (10:42)
[2016-07-12] MEDS: SODIUM CHLORIDE 0.9% FLUSH 5 ML FLUSH FLUSH SCH (10:42)
[2016-07-12] MEDS: OLANZapine 5 MG TAB PO SCH (10:42)
[2016-07-12] MEDS: busPIRone HCL 5 MG TAB PO SCH (10:42)
[2016-07-12 12:17] VITALS: RESP 18
--- NOTE | 2016-07-12 14:53 | EKG ---
Date Performed: 07/11/2016 Time Performed: 07:43:29 PTAGE: 56 years EKG: Sinus rhythm POSSIBLE LEFT ATRIAL ENLARGEMENT LEFT BUNDLE BRANCH BLOCK When compared to previous tracing, there i s now evidence of a New left bundle branch block. ABNORMAL ECG PREVIOUS TRACING : 06/23/2016 00.22 DOCTOR: Zayra Jeffries Interpretating Date/Time 07/12/2016 14:51:58
--- NOTE | 2016-07-12 19:08 | HHI.DS ---
Discharge Summary Admission Date Jul 11, 2016 at 09:27 Admitting Diagnosis UTI, chronic abdominal pain Procedures None Brief History This was a very pleasant 56-year-old female patient of Dr. Gamez. She presented to the emergency department at [facility] with abdominal pain, nausea, vomiting and burning when urinating. She had chronic recurrent abdominal pain. She stated that she has an abnormal gastric emptying study. She had seen Dr. Hoover in the past. No fever chills or diaphoresis. She was seen by the undersigned in room C 34. She was alert and oriented. She was requesting IV Dilaudid. She takes oral Dilaudid normally as prescribed by neurologist Dr. Ortiz. She also takes a fentanyl patch which apparently is due to be changed today according to her statement. She lost about 10 pounds over the last 2 weeks. CBC/BMP: 07/12/16 0433 07/12/16 0143 Significant Findings Laboratory Tests Test 07/11/16 07/11/16 07/12/16 07/12/16 07:30 07:35 01:43 04:33 Urine Color ORANGE (YELLW/STRAW) Urine Turbidity HAZY (CLEAR) Urine Nitrite POS (NEG) Urine RBC 7 /hpf (0-3) Urine WBC 7 /hpf (0-5) Urine Bacteria FEW /hpf (NONE) Neutrophils (%) (Auto) 76.1 % (16.0-70.0) Lymphocytes # (Auto) 0.8 TH/MM3 (1.0-4.8) Estimat Glomerular Filtration 68 ML/MIN (>89) Rate Random Glucose 109 MG/DL (74-106) Aspartate Amino Transf 12 U/L (15-37) (AST/SGOT) Calcium Level 8.2 MG/DL (8.5-10.1) White Blood Count 3.4 TH/MM3 (4.0-11.0) Red Blood Count 3.69 MIL/MM3 (4.00-5.30) Hemoglobin 10.4 GM/DL (11.6-15.3) Hematocrit 33.4 % (35.0-46.0) Mean Corpuscular Hemoglobin 31.0 % Concent (32.0-36.0) Red Cell Distribution Width 17.4 % (11.6-17.2) Platelet Count 144 TH/MM3 (150-450) Eosinophils % 6 % (0-4) Neutrophils # (Manual) 1.6 TH/MM3 (1.8-7.7) Platelet Estimate LOW (NORMAL) PE at Discharge General General Appearance: Well Developed, Anxious Appearance Remarks Thin frame Eyes Eye Exam: Pupils Equal, Pupils Reactive Ears & Nose Ears & Nose Exam: Nasal Mucosa Alsen Throat Throat Exam: Oral Mucosa Alsen & Moist Neck Neck Exam: Neck Supple, Trachea Midline Pulmonary Resp Exam: Clear Bilaterally, Breath Sounds Equal, No Distress Cardiology CV Exam: Regular Gastrointestinal/Abdomen GI Exam: Soft, Bowel Sounds Present Genitourinary Remarks Mild left flank tenderness Musculoskeletal MS Exam: Joints Intact Skin Exam: Warm, Dry Extremeties Extremities Exam: No Edema Neurologic Neuro Exam: Alert, Awake, Oriented, Speech Clear, Moving All Extremities VTE Prophylaxis VTE Prophylaxis Meds: Heparin Hospital Course Patient was admitted with the following diagnosis nausea , secondary to UTI Dysuria Probable UTI acute on Chronic pain syndrome Narcotic dependence amenia Patient was started on IV fluids for gentle hydration and kept nothing by mouth due to her abdominal pain Labs were drawn which included her hemoglobin ,Anemia stable, 10.4 IV Cipro initiated or antibiotic coverage Continue oral medications from home Nausea persisted, but so far no emesis Pain control meds, and 10 use with left flank pain and dysuria. DVT prophylaxis with heparin Follow-up with gastroenterology as outpatient. Latosha FERREIRA and Dr. Jo patient in the a.m. of admission. Patient's lab results, as well as her exam were negative. After review of systems patient could be managed on an outpatient basis. She was discharged from the hospital, stable, and will follow up with her PCP. Pt Condition on Discharge: Stable Discharge Disposition: Discharge Home Discharge Instructions DIET: Follow Instructions for: As Tolerated, No Restrictions Additional Diet Instructions: Nonfat Activities you can perform: Regular-No Restrictions Follow up Referrals: Behavioral Services - 2-3 Days Continued Medications: Buspirone (Buspirone) 7.5 Mg Tab 7.5 MG PO BID Anxiety Ref 0 TAB Cyanocobalamin Inj (Cyanocobalamin Inj) 1,000 Mcg/Ml Inj 1000 MCG IM Q30D #1 Ref 0 VIAL Hydroxyzine HCl (Hydroxyzine HCl) 50 Mg Tab 50 MG PO Q8HR PRN ITCHING Ref 0 TAB Imipramine HCL (Imipramine HCL) 25 Mg Tab 25 MG PO HS Control Depression Ref 0 TAB Lidocaine Patch 12 HR (Lidoderm Patch 12 HR) 5% Patch 1 PATCH TD DAILY back pain #7 Ref 0 PATCH Nitrofurantoin Monohydrate Macrocrystals (Macrobid) 100 Mg Cap 100 MG PO BID Infection Days 10 Ref 0 CAP Olanzapine (Zyprexa) 5 Mg Tab 5 MG PO BID #60 Ref 0 TAB Phenazopyridine (Pyridium) 200 Mg Tab 200 MG PO Q8H PRN DYSURIA Days 2 Ref 0 TAB Discontinued Medications: Ciprofloxacin (Cipro) 500 Mg Tab 500 MG PO BID Infection Days 7 Ref 0 TAB Diazepam (Valium) 10 Mg Tab 10 MG PO TID Ref 0 TAB Fentanyl Patch 72 HR (Fentanyl Patch 72 HR) 25 Mcg/Hr Patch 25 MCG T-DERMAL Q72H Pain Management #10 Ref 0 PATCH Hydromorphone (Dilaudid) 4 Mg Tab 4 MG PO Q6HR Pain Management Ref 0 TAB Latosha Murray Jul 12, 2016 19:08
[2016-07-14] MEDS ORDERED: REMOVE OLD DURAGESIC (FENTANYL) PATCH TD SCH (11:00)
== END 2016-07-12 14:37 | disposition home or self-care (01) ==
LOC: NEPC 06:56 → NEDA 09:27 → NEPGCP 12:13
PROVIDERS: ADMIT Specialist; ATTEND Specialist
DX: N30.00 Acute cystitis without hematuria (principal); E86.0 Dehydration; D64.9 Anemia, unspecified; R10.84 Generalized abdominal pain; G89.4 Chronic pain syndrome; F11.20 Opioid dependence, uncomplicated; I25.2 Old myocardial infarction; J98.11 Atelectasis; K31.84 Gastroparesis; Z85.528 Personal history of other malignant neoplasm of kidney; Z90.5 Acquired absence of kidney; Z86.73 Personal history of transient ischemic attack (TIA), and cerebral infarction without residual deficits
CPT/HCPCS: 80048; 80053; 81001; 83690; 83735; 84100; 85007; 85025; 85027; 87086; 93005; 96361; 96365; 96375; 99285; G0378; J0744; J1170; J1644; J2060; J7030

== ENCOUNTER 2016-07-16 11:57 | Emergency (ER) | payer BC ==
[~2016-07-16] VITALS: Ht 157.5 cm; Wt 43.6 kg
[~2016-07-16 11:57] MED LIST changes: -DIAZ10 PO; -DILA4TAB2 PO; -FENT25DI T-DERMAL
[2016-07-16 11:59] VITALS: BP 150/105; PULSE 108; RESP 12; TEMP 98.4; O2SAT 96
[2016-07-16] MEDS ORDERED: SODIUM CHLOR 0.9% 1000 ML INJ 1,000 ML IV SCH ×2 (12:15→15:56)
[2016-07-16] MEDS ORDERED: DILA4TAB2 PO (12:18)
[2016-07-16] MEDS ORDERED: CIPR500T2 PO (12:18)
[2016-07-16] MEDS ORDERED: DIAZ10 PO (12:18)
[2016-07-16] MEDS ORDERED: LIDOCAINE VISCOUS 2% SOLN 15 ML UDC PO ONE (13:00)
[2016-07-16] MEDS ORDERED: ALUMINUM/MAGNESIUM/SIMETH 30 ML CUP PO ONE (13:00)
[2016-07-16] MEDS ORDERED: diphenhydrAMINE HCL 50 MG/ML VIAL IV PUSH ONE (13:00)
[2016-07-16] MEDS ORDERED: PANTOPRAZOLE SODIUM 40 MG VIAL IV PUSH ONE (13:00)
[2016-07-16] MEDS ORDERED: HYDROmorphone HCL PF 1 MG/ML VIAL IVS ONE (13:00)
[2016-07-16 13:20] LABS: AUTOMATED NEUTROPHIL # 3.3 TH/MM3 (1.8-7.7); EOSINOPHIL # 0.1 TH/MM3 (0-0.4); EOSINOPHIL % 0.9 % (0.0-4.0); HEMATOCRIT 38.5 % (35.0-46.0); HEMO FLAGS DIFF FINAL; LYMPH % 33.1 % (9.0-44.0); LYMPHOCYTE # 1.9 TH/MM3 (1.0-4.8); MEAN CELL VOLUME 84.3 FL (80.0-100.0); MEAN CORPUSCULAR HEMOGLOBIN 28.3 PG (27.0-34.0); MEAN CORPUSCULAR HGB CONC 33.5 % (32.0-36.0); MONO % 7.7 % (0.0-8.0); NEUT % 58.3 % (16.0-70.0); PLATELET COUNT 236 TH/MM3 (150-450); RED BLOOD COUNT 4.57 MIL/MM3 (4.00-5.30); RED CELL DISTRIBUTION WIDTH 16.7 % (11.6-17.2); WHITE BLOOD COUNT 5.7 TH/MM3 (4.0-11.0)
--- NOTE | 2016-07-16 13:34 | PD ---
HPI Chief Complaint: Abdominal Pain Time Seen by Provider: 13:27 Travel History International Travel<30 days: No Contact w/Intl Traveler<30days: No Traveled to known affect area: No History of Present Illness HPI 56-year-old female that presents to the ED for evaluation of abdominal pain with nausea and vomiting. Per patient she's not been able to keep anything down for the past 2 days. Per patient she was hoping that she will get better so she had to come here but she did not. Per patient she's not even able to keep down her on medications for pain. Per patient she's been having a couple of episodes of emesis with brown sludge. She does have a chronic history of dry heaving with vomiting but states that she's never had anything like this before. Per patient he was not blood. Per patient he looked like bile which is high in the past but it was darker. Per patient she has a burning sensation in her throat and chest. She denies any bowel movement issues or urinary issue but she does have a history of UTIs that are chronic as well as chronic abdominal discomfort from multiple surgeries and conditions. She does have a history of allergies to multiple medications. She has been here multiple times. Per patient her current pain is 9 out of 10. She states the last time she threw up was an hour ago before coming. She states that she did try to contact her PCP as well as her GI on the told her to come here. She has no other complaints at this time. Per patient symptoms started yesterday. Have not improved. She was just seen here last week and admitted for a couple days for acute on chronic abdominal discomfort as well as inability to keep anything down. She also just recently was admitted for a positive troponin and liver issue as well as for acute pancreatitis use in the past month. PFSH Past Medical History Hx Anticoagulant Therapy: No Asthma: No Blood Disorders: No Anxiety: Yes Depression: No Heart Rhythm Problems: No Cancer: Yes (kidney) Cardiovascular Problems: Yes ( ID 2004) High Cholesterol: No Chemotherapy: Yes (KIDNEY ) Chest Pain: No Congestive Heart Failure: No COPD: No Cerebrovascular Accident: Yes (2004) Diabetes: No Diminished Hearing: No Endocrine: No Gastrointestinal Disorders: Yes GERD: No Genitourinary: Yes (RIGHT NEPHRECTOMY) Headaches: Yes Hiatal Hernia: Yes Hypertension: No Immune Disorder: No Implanted Vascular Access Dvce: No Kidney Stones: No Musculoskeletal: No Neurologic: No Psychiatric: No Reproductive: No Respiratory: No Immunizations Current: Yes Migraines: Yes Myocardial Infarction: Yes (2005) Pneumonia: Yes Radiation Therapy: No Renal Failure: No Seizures: Yes Sleep Apnea: No Thyroid Disease: No Ulcer: No Tetanus Vaccination: < 5 Years ?: Not Menopausal: Yes : 1 Para: 1 Miscarriage: 0 : 0 Ectopic : No Ovarian Cysts: No Dilation and Curettage (D&C): Yes Tubal Ligation: Yes Past Surgical History Abdominal Surgery: Yes (total gastrectomy w/pouch 2002, hernia repair) Appendectomy: Yes Cardiac Surgery: Yes (pt states an occulator was placed in her heart 2005) Cholecystectomy: Yes Gynecologic Surgery: Yes (hysterectomy) Hysterectomy: Yes Thoracic Surgery: No Tonsillectomy: Yes Other Surgery: Yes (right kidney removed) Social History Alcohol Use: No Tobacco Use: No Substance Use: No Allergies-Medications (Allergen,Severity, Reaction): Coded Allergies: Compazine (Verified Allergy, Severe, SOB, 07/16/16) Gadolinium Derivatives (Verified Allergy, Severe, RESPIRATORY DISTRESS, 07/16/16) Lobster (Verified Allergy, Severe, Anaphylaxis, 07/16/16) Morphine (Verified Allergy, Severe, Hives, 07/16/16) PT HAVING HIVES AND ITCHING TO ARM ABOVE IV SITE AFTER ADMINISTRATION OF MORPHINE Phenergan (Verified Allergy, Severe, SOB, 07/16/16) Reglan (Verified Allergy, Severe, SOB, 07/16/16) Toradol (Verified Allergy, Severe, Shortness of Breath, 07/16/16) Zofran (Verified Allergy, Severe, SOB, 07/16/16) Penicillin (Verified Allergy, Mild, RASH, 07/16/16) Sulfa (Verified Allergy, Mild, RASH, 07/16/16) *MDRO Multi-Drug Resistant Organism (Verified Adverse Reaction, Unknown, ) 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) Uncoded Allergies: GADOLINIUM (Adverse Reaction, Severe, PT STOPPED BREATHING WITH GADO, ) PT STATES SHE STOPPED BREATHING AFTER HAVING GADO AT ANOTHER FACILITY. 06/23/16 [facility] Reported Meds & Prescriptions Reported Meds & Active Scripts Active Pyridium (Phenazopyridine HCl) 200 Mg Tab 200 Mg PO Q8H PRN 2 Days Reported Dilaudid (Hydromorphone HCl) 4 Mg Tab 4 Mg PO Q6H PRN Valium (Diazepam) 10 Mg Tab 10 Mg PO TID Ciprofloxacin (Ciprofloxacin HCl) 500 Mg Tab 500 Mg PO BID Buspirone (Buspirone HCl) 7.5 Mg Tab 7.5 Mg PO BID Zyprexa (Olanzapine) 5 Mg Tab 5 Mg PO BID Cyanocobalamin Inj (Cyanocobalamin) 1,000 Mcg/Ml Inj 1,000 Mcg IM Q30D Hydroxyzine HCl 50 Mg Tab 50 Mg PO Q8HR PRN Imipramine HCL (Imipramine HCl) 25 Mg Tab 25 Mg PO HS Review of Systems General / Constitutional: Positive: Weight Loss, No: Fever, Chills, Weight Gain, Other Eyes: No: Diploplia, Blurred Vision, Photophobia, Drainage, Redness, Foreign Body Sensation, Pain, Tearing, Blind Spots, Visual changes, Blindness, Other HENT: No: Headaches, Vertigo, Lightheadedness, Sore Throat, Rhinitis, Rhinorrhea, Congestion, Nosebleed, Neck Stiffness, Neck Pain, Masses, Gingival Bleeding, Dental Difficulties, Ear Discharge, Earache, Other Cardiovascular: Positive: Chest Pain or Discomfort, No: Palpitations, Irregular Rhythm, Tachycardia, Diaphoresis, Syncope, Dyspnea on exertion, Varicosities, Edema, Cyanosis, Varicosities, Phlebitis, Claudication, Other Respiratory: No: Cough, Shortness of Breath, Wheezing, Sneezing, Orthopnea, Hemoptysis, Stridor, Night Sweats, Pleuritic Pain, Other Gastrointestinal: Positive: Nausea, Vomiting, Abdominal Pain, Dysphagia, Loss of Appetite, No: Diarrhea, Hematemesis, Hematochezia, Constipation, Changes in Bowel Habits, Indigestion, Other Genitourinary: No: Urgency, Frequency, Dysuria, Nocturia, Hematuria, Decreased Urinary Output, Oliguria, Hesitancy, Dribbling, Incontinence, Pelvic Pain, Flank Pain, Dyspareunia, Discharge, Dysmenorrhea, Menorrhagia, Metorrhagia, Vaginal Bleeding, Other Musculoskeletal: No: Myalgias, Arthralgias, Limited ROM, Weakness, Cramping, Edema, Pain, Atrophy, Other Skin: No Rash, No Itching, No Dryness, No Lumps, No Hives, No Change in Pigmentation, No Change in nails, No Alopecia, No Lesions, No Breast Lumps, No Breast Tenderness, No Breast Swelling, No Other Neurologic: No: Weakness, Dizziness, Syncope, Focal Abnormalities, Coordination Problem, Tremor, Ataxia, Headache, Change in Mentation, Slurred Speech, Paresthesia, Incontinence, Seizures, Sensory Disturbance, Other Psychiatric: No: Anxiety, Depression, Suicidal Ideations, Disorder of Thought, Mood Disorder, Substance Abuse, Homicidal Ideation, Other Endocrine: No: Heat Intolerance, Cold Intolerance, Polyuria, Polydipsia, Other Hematologic/Lymphatic: No: Easy Bruising, Lymph Node Enlargement, Other Physical Exam Narrative GENERAL: SKIN: Warm and dry. HEAD: Atraumatic. Normocephalic. EYES: Pupils equal and round 4mm reactive to light and accomodation. No scleral icterus. No injection or drainage. ENT: No nasal bleeding or discharge. Mucous membranes pink and moist. Tongue is midline, no uvula deviation. NECK: Trachea midline. No JVD. CARDIOVASCULAR: Regular rate and rhythm. No murmurs, S3, S4. RESPIRATORY: No accessory muscle use. Clear to auscultation. Breath sounds equal bilaterally. GASTROINTESTINAL: Abdomen soft, tender with deep palpation in epigastric area, nondistended. Hepatic and splenic margins not palpable. MUSCULOSKELETAL: Extremities without clubbing, cyanosis, or edema. No obvious deformities. NEUROLOGICAL: Awake and alert. No obvious cranial nerve deficits. Motor grossly within normal limits. Five out of 5 muscle strength in the arms and legs. Normal speech. PSYCHIATRIC: Appropriate mood and affect; insight and judgment normal. Data Data Last Documented VS Vital Signs Date Time Temp Pulse Resp B/P Pulse Ox O2 Delivery O2 Flow Rate FiO2 07/16/16 14:13 18 07/16/16 11:59 98.4 108 150/105 96 Room Air Orders Complete Blood Count With Diff (07/16/16 12:15) Comprehensive Metabolic Panel (07/16/16 12:15) Lipase (07/16/16 12:15) Urinalysis - C+S If Indicated (07/16/16 12:15) Iv Access Insert/Monitor (07/16/16 12:15) Sodium Chlor 0.9% 1000 Ml Inj (Ns 1000 M (07/16/16 12:15) Hydromorphone Pf Inj (Dilaudid Pf Inj) (07/16/16 13:00) Diphenhydramine Inj (Benadryl Inj) (07/16/16 13:00) Chest, Single Ap (07/16/16 ) Pantoprazole Inj (Protonix Inj) (07/16/16 13:00) Al-Mag Hy-Si 40-40-4 Mg/Ml Liq (Mag-Al P (07/16/16 13:00) Lidocaine 2% Viscous (Xylocaine 2% Visco (07/16/16 13:00) Potassium Cl 40 Meq/30 Ml Liq (Kcl 40 Me (07/16/16 14:45) Lorazepam Inj (Ativan Inj) (07/16/16 14:45) Labs Laboratory Tests Test 07/16/16 13:05 White Blood Count 5.7 TH/MM3 Red Blood Count 4.57 MIL/MM3 Hemoglobin 12.9 GM/DL Hematocrit 38.5 % Mean Corpuscular Volume 84.3 FL Mean Corpuscular Hemoglobin 28.3 PG Mean Corpuscular Hemoglobin 33.5 % Concent Red Cell Distribution Width 16.7 % Platelet Count 236 TH/MM3 Mean Platelet Volume 9.0 FL Neutrophils (%) (Auto) 58.3 % Lymphocytes (%) (Auto) 33.1 % Monocytes (%) (Auto) 7.7 % Eosinophils (%) (Auto) 0.9 % Basophils (%) (Auto) 0.0 % Neutrophils # (Auto) 3.3 TH/MM3 Lymphocytes # (Auto) 1.9 TH/MM3 Monocytes # (Auto) 0.4 TH/MM3 Eosinophils # (Auto) 0.1 TH/MM3 Basophils # (Auto) 0.0 TH/MM3 CBC Comment DIFF FINAL Differential Comment Sodium Level 139 MEQ/L Potassium Level 3.0 MEQ/L Chloride Level 103 MEQ/L Carbon Dioxide Level 26.4 MEQ/L Anion Gap 10 MEQ/L Blood Urea Nitrogen 11 MG/DL Creatinine 0.94 MG/DL Estimat Glomerular Filtration 62 ML/MIN Rate Random Glucose 93 MG/DL Calcium Level 9.4 MG/DL Total Bilirubin 0.5 MG/DL Aspartate Amino Transf 48 U/L (AST/SGOT) Alanine Aminotransferase 35 U/L (ALT/SGPT) Alkaline Phosphatase 88 U/L Total Protein 7.5 GM/DL Albumin 4.0 GM/DL Lipase 235 U/L [facility] Medical Decision Making Medical Screen Exam Complete: Yes Emergency Medical Condition: Yes Medical Record Reviewed: Yes Interpretation(s) CBC & BMP Diagram 07/16/16 13:05 LFTs WNL Lipase WNL Differential Diagnosis Acute abdominal pain versus nausea and vomiting versus chronic pain versus peptic ulcer disease versus gastritis versus chest pain versus a typical chest pain versus GERD versus nausea versus intractable nausea Narrative Course 56-year-old female that presents to the ED for evaluation of abdominal pain with nausea and vomiting. Patient was properly examined and was found to have signs and symptoms consistent what appears to be acute on chronic abdominal pain. Patient states that she cannot keep anything down including her medications. She does appear to be somewhat dehydrated exam. I did review her records and she has been admitted 3 times in the past 30 days. At this time I will do recommend some labs and imaging to rule out any sign of other acute disease. She did vomit a couple times and concern for aspiration pneumonia is present. I do not believe that her chest pain is cardiac in nature as she states that it's a burning sensation secondary to the nausea and vomiting. I definitely believe that this is related to her GERD. She was given medications for pain as well as emesis as well as GERD. She will be reassessed once labs come back. Labs came essentially unremarkable other than slight hypo kalemia of 3.0. Patient was given by mouth potassium with patient able to keep that down. Patient was told that she needs to follow with PCP. Told to follow up with GI doctor. See ED worsening symptoms. Diagnosis Primary Impression: Nausea & vomiting Qualified Code: R11.2 - Non-intractable vomiting with nausea, unspecified vomiting type Additional Impression: Abdominal pain Qualified Code: R10.13 - Epigastric pain Patient Instructions: General Instructions, Narcotic given in the ED Additional Instructions: Follow with PCP. See ED for worsening symptoms. Med/Other Pt SpecificInfo: No Change to Meds Disposition: 01 DISCHARGE HOME Condition: Stable Rajesh Tarango Jul 16, 2016 13:34
[2016-07-16 13:41] LABS: ALKALINE PHOSPHATASE 88 U/L (45-117); ALT (GPT) 35 U/L (10-53); ANION GAP 10 MEQ/L (5-15); AST (GOT) 48 U/L (15-37); BICARBONATE 26.4 MEQ/L (21.0-32.0); BLOOD UREA NITROGEN 11 MG/DL (7-18); CHLORIDE 103 MEQ/L (98-107); GLOMERULAR FILTRATION RATE 62 ML/MIN (>89); SODIUM (NA) 139 MEQ/L (136-145); TOTAL BILIRUBIN ADULT 0.5 MG/DL (0.2-1.0)
--- NOTE | 2016-07-16 14:32 | RADRPT ---
EXAM DATE/TIME: 07/16/2016 13:20 [facility] COMPARISON: CHEST SINGLE AP, April 05, 2016, 9:58. INDICATIONS : Pain in medial Chest. Trouble breathing MEDICAL HISTORY : None. SURGICAL HISTORY : gastrectomy ENCOUNTER: Initial ACUITY: 2 days PAIN SCORE: 0/10 LOCATION: Bilateral chest FINDINGS: A single view of the chest demonstrates the lungs to be symmetrically aerated without evidence of mas s, infiltrate or effusion. The cardiomediastinal contours are unremarkable. Scoliosis and degenerati ve changes are noted within the thoracic spine. CONCLUSION: 1. No acute disease. 2. Scoliosis and degenerative changes involving the thoracic spine. Wilmer Schultz MD on July 16, 2016 at 14:30 Board Certified Radiologist. This report was verified electronically.
[2016-07-16] MEDS ORDERED: LORazepam 2 MG/ML VIAL IV PUSH ONE (14:45)
[2016-07-16] MEDS ORDERED: POTASSIUM CL 40 MEQ/30 ML LIQ UDC PO ONE (14:45)
[2016-07-16] MEDS ORDERED: HYDROmorphone HCL PF 1 MG/ML VIAL IV PUSH ONE (16:00)
[2016-07-16] MEDS ORDERED: POTASSIUM CHLOR 20 MEQ PREMIX 100 ML IV ONE (16:00)
[2016-07-16 18:19] VITALS: BP 111/74; PULSE 70; RESP 20; O2SAT 97
[2016-07-16 19:00] VITALS: RESP 18
== END 2016-07-16 21:02 | disposition home or self-care (01) ==
LOC: NEPD 11:57
DX: R11.2 Nausea with vomiting, unspecified (principal); R10.13 Epigastric pain; I25.2 Old myocardial infarction
CPT/HCPCS: 71010; 80053; 83690; 85025; 96361; 96365; 96366; 96375; 96376; 99284; C9113; J1170; J1200; J2060; J3480; J7030

== ENCOUNTER 2016-07-17 09:33 | Observation (INO) | payer BC ==
[~2016-07-17] VITALS: Ht 157.5 cm; Wt 43.0 kg
[~2016-07-17 09:33] MED LIST changes: +CIPR500T2 PO; +DIAZ10 PO; +DILA4TAB2 PO; -LIDO5DIS35 TD; -MACR100C2 PO
[2016-07-17 09:45] VITALS: BP 142/98; PULSE 98; RESP 14; TEMP 98.2; O2SAT 98
--- NOTE | 2016-07-17 11:20 | PD ---
HPI Chief Complaint: GI Complaint Time Seen by Provider: 11:10 Travel History International Travel<30 days: No Contact w/Intl Traveler<30days: No Traveled to known affect area: No History of Present Illness HPI 56 year old female presents for evaluation nausea, vomiting, abdominal pain. She reports that the past 2 days she has had multiple of sodium nonbloody emesis on a daily basis, retching, unable to keep any food or fluids down. She was seen here yesterday for evaluation of these symptoms. She is found to have hypokalemia and she was discharged. She returns today because symptoms have worsened. She does endorse chronic abdominal pain but over the past several hours she has had worsening abdominal pain in her left lower quadrant which she describes as "pinching." Denies fevers, chills, chest pain, shortness of breath , diarrhea, dysuria. She reports that she is allergic to most common ENT in medical medications and she is typically given Valium for her nausea. She reports that she called her paint stripper who she does not recall the name of but is a partner of Dr. Hoover and it was recommended that she return to the emergency room. She has no other complaints at this time. PFSH Past Medical History Hx Anticoagulant Therapy: No Asthma: No Blood Disorders: No Anxiety: Yes Depression: No Heart Rhythm Problems: No Cancer: Yes (kidney) Cardiovascular Problems: Yes High Cholesterol: No Chemotherapy: Yes (KIDNEY ) Chest Pain: No Congestive Heart Failure: No COPD: No Cerebrovascular Accident: Yes Diabetes: No Diminished Hearing: No Endocrine: No Gastrointestinal Disorders: Yes GERD: No Genitourinary: Yes (RIGHT NEPHRECTOMY) Headaches: Yes Hiatal Hernia: Yes Hypertension: No Immune Disorder: No Implanted Vascular Access Dvce: No Kidney Stones: No Musculoskeletal: No Neurologic: No Psychiatric: No Reproductive: No Respiratory: No Immunizations Current: Yes Migraines: Yes Myocardial Infarction: Yes (2005) Pneumonia: Yes Radiation Therapy: No Renal Failure: No Seizures: Yes Sleep Apnea: No Thyroid Disease: No Ulcer: No ?: Not Menopausal: Yes : 1 Para: 1 Miscarriage: 0 : 0 Ectopic : No Ovarian Cysts: No Dilation and Curettage (D&C): Yes Tubal Ligation: Yes Past Surgical History Abdominal Surgery: Yes (total gastrectomy w/pouch 2002, hernia repair) Appendectomy: Yes Cardiac Surgery: Yes (pt states an occulator was placed in her heart 2005) Cholecystectomy: Yes Gynecologic Surgery: Yes (hysterectomy) Hysterectomy: Yes Thoracic Surgery: No Tonsillectomy: Yes Other Surgery: Yes (right kidney removed) Social History Alcohol Use: No Tobacco Use: No Substance Use: No Allergies-Medications (Allergen,Severity, Reaction): Coded Allergies: Compazine (Verified Allergy, Severe, SOB, 07/17/16) Gadolinium Derivatives (Verified Allergy, Severe, RESPIRATORY DISTRESS, 03/23) Lobster (Verified Allergy, Severe, Anaphylaxis, 07/17/16) Morphine (Verified Allergy, Severe, Hives, 07/17/16) PT HAVING HIVES AND ITCHING TO ARM ABOVE IV SITE AFTER ADMINISTRATION OF MORPHINE Phenergan (Verified Allergy, Severe, SOB, 07/17/16) Reglan (Verified Allergy, Severe, SOB, 07/17/16) Toradol (Verified Allergy, Severe, Shortness of Breath, 07/17/16) Zofran (Verified Allergy, Severe, SOB, 07/17/16) Penicillin (Verified Allergy, Mild, RASH, 07/17/16) Sulfa (Verified Allergy, Mild, RASH, 07/17/16) *MDRO Multi-Drug Resistant Organism (Verified Adverse Reaction, Unknown, ) 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) Uncoded Allergies: GADOLINIUM (Adverse Reaction, Severe, PT STOPPED BREATHING WITH GADO, ) PT STATES SHE STOPPED BREATHING AFTER HAVING GADO AT ANOTHER FACILITY. 06/23/16 [facility] Reported Meds & Prescriptions Reported Meds & Active Scripts Active Pyridium (Phenazopyridine HCl) 200 Mg Tab 200 Mg PO Q8H PRN 2 Days Reported Dilaudid (Hydromorphone HCl) 4 Mg Tab 4 Mg PO Q6H PRN Valium (Diazepam) 10 Mg Tab 10 Mg PO TID Ciprofloxacin (Ciprofloxacin HCl) 500 Mg Tab 500 Mg PO BID Buspirone (Buspirone HCl) 7.5 Mg Tab 7.5 Mg PO BID Zyprexa (Olanzapine) 5 Mg Tab 5 Mg PO BID Cyanocobalamin Inj (Cyanocobalamin) 1,000 Mcg/Ml Inj 1,000 Mcg IM Q30D Hydroxyzine HCl 50 Mg Tab 50 Mg PO Q8HR PRN Imipramine HCL (Imipramine HCl) 25 Mg Tab 25 Mg PO HS Review of Systems Except as stated in HPI: all other systems reviewed are Neg Physical Exam Narrative GENERAL: Well-developed well-nourished female in no acute distress, anxious appearing SKIN: Warm and dry. HEAD: Atraumatic. Normocephalic. EYES: Pupils equal and round. No scleral icterus. No injection or drainage. ENT: No nasal bleeding or discharge. Mucous membranes pink and moist. NECK: Trachea midline. No JVD. CARDIOVASCULAR: Regular rate and rhythm. No murmur appreciated. RESPIRATORY: No accessory muscle use. Clear to auscultation. Breath sounds equal bilaterally. GASTROINTESTINAL: Abdomen soft, there is generalized tenderness to palpation without guarding. MUSCULOSKELETAL: No obvious deformities. No clubbing. No cyanosis. No edema. NEUROLOGICAL: Awake and alert. No obvious cranial nerve deficits. Motor grossly within normal limits. Normal speech. Data Data Last Documented VS Vital Signs Date Time Temp Pulse Resp B/P Pulse Ox O2 Delivery O2 Flow Rate FiO2 07/17/16 09:45 98.2 98 14 142/98 98 Orders Complete Blood Count With Diff (07/17/16 11:15) Comprehensive Metabolic Panel (07/17/16 11:15) Lipase (07/17/16 11:15) Urinalysis - C+S If Indicated (07/17/16 11:15) Electrocardiogram (07/17/16 11:15) Pantoprazole Inj (Protonix Inj) (07/17/16 14:00) Sodium Chlor 0.9% 1000 Ml Inj (Ns 1000 M (07/17/16 13:56) Hydromorphone Pf Inj (Dilaudid Pf Inj) (07/17/16 14:00) Al-Mag Hy-Si 40-40-4 Mg/Ml Liq (Mag-Al P (07/17/16 14:00) Lidocaine 2% Viscous (Xylocaine 2% Visco (07/17/16 14:00) Lorazepam Inj (Ativan Inj) (07/17/16 14:15) Labs Laboratory Tests Test 07/17/16 07/17/16 11:37 11:50 White Blood Count 3.6 TH/MM3 Red Blood Count 4.21 MIL/MM3 Hemoglobin 11.7 GM/DL Hematocrit 36.0 % Mean Corpuscular Volume 85.6 FL Mean Corpuscular Hemoglobin 27.8 PG Mean Corpuscular Hemoglobin 32.5 % Concent Red Cell Distribution Width 17.1 % Platelet Count 203 TH/MM3 Mean Platelet Volume 9.1 FL Neutrophils (%) (Auto) 62.6 % Lymphocytes (%) (Auto) 28.6 % Monocytes (%) (Auto) 6.9 % Eosinophils (%) (Auto) 1.8 % Basophils (%) (Auto) 0.1 % Neutrophils # (Auto) 2.3 TH/MM3 Lymphocytes # (Auto) 1.0 TH/MM3 Monocytes # (Auto) 0.2 TH/MM3 Eosinophils # (Auto) 0.1 TH/MM3 Basophils # (Auto) 0.0 TH/MM3 CBC Comment DIFF FINAL Differential Comment Sodium Level 144 MEQ/L Potassium Level 3.9 MEQ/L Chloride Level 113 MEQ/L Carbon Dioxide Level 24.2 MEQ/L Anion Gap 7 MEQ/L Blood Urea Nitrogen 12 MG/DL Creatinine 0.85 MG/DL Estimat Glomerular Filtration 69 ML/MIN Rate Random Glucose 83 MG/DL Calcium Level 8.7 MG/DL Total Bilirubin 0.3 MG/DL Aspartate Amino Transf 37 U/L (AST/SGOT) Alanine Aminotransferase 34 U/L (ALT/SGPT) Alkaline Phosphatase 85 U/L Total Protein 6.6 GM/DL Albumin 3.5 GM/DL Lipase 411 U/L Urine Color YELLOW Urine Turbidity CLEAR Urine pH 5.5 Urine Specific Hamer 1.015 Urine Protein NEG mg/dL Urine Glucose (UA) NEG mg/dL Urine Ketones NEG mg/dL Urine Occult Blood TRACE Urine Nitrite NEG Urine Bilirubin NEG Urine Urobilinogen LESS THAN 2.0 MG/DL Urine Leukocyte Esterase SMALL Urine RBC 2 /hpf Urine WBC 4 /hpf Urine Squamous Epithelial 5 /hpf Cells Urine Bacteria RARE /hpf Urine Mucus FEW /lpf Microscopic Urinalysis Comment CULT NOT INDICATED MDM Medical Decision Making Medical Screen Exam Complete: Yes Emergency Medical Condition: Yes Medical Record Reviewed: Yes Differential Diagnosis Dehydration, electrolyte abnormality, pancreatitis, gastroenteritis, colitis, diverticulitis, gastritis, peptic ulcer disease, mesenteric ischemia Narrative Course 56-year-old female with history of chronic abdominal pain presents with 2 days of intractable nausea and vomiting, worsening left lower quadrant abdominal pain. This patient was seen in triage and protocols were initiated. The patient will be transferred to a medical bed when one becomes available. Nestor Martinez Jul 17, 2016 11:20
[2016-07-17 11:58] LABS: AUTOMATED NEUTROPHIL # 2.3 TH/MM3 (1.8-7.7); BASOPHIL % 0.1 % (0.0-2.0); EOSINOPHIL # 0.1 TH/MM3 (0-0.4); EOSINOPHIL % 1.8 % (0.0-4.0); HEMO FLAGS DIFF FINAL; LYMPH % 28.6 % (9.0-44.0); MEAN CELL VOLUME 85.6 FL (80.0-100.0); MEAN CORPUSCULAR HEMOGLOBIN 27.8 PG (27.0-34.0); MEAN CORPUSCULAR HGB CONC 32.5 % (32.0-36.0); MONO % 6.9 % (0.0-8.0); NEUT % 62.6 % (16.0-70.0); PLATELET COUNT 203 TH/MM3 (150-450); RED BLOOD COUNT 4.21 MIL/MM3 (4.00-5.30); RED CELL DISTRIBUTION WIDTH 17.1 % (11.6-17.2); WHITE BLOOD COUNT 3.6 TH/MM3 (4.0-11.0)
[2016-07-17 12:18] LABS: ALKALINE PHOSPHATASE 85 U/L (45-117); ALT (GPT) 34 U/L (10-53); ANION GAP 7 MEQ/L (5-15); AST (GOT) 37 U/L (15-37); BICARBONATE 24.2 MEQ/L (21.0-32.0); BLOOD UREA NITROGEN 12 MG/DL (7-18); CHLORIDE 113 MEQ/L (98-107); GLOMERULAR FILTRATION RATE 69 ML/MIN (>89); POTASSIUM 3.9 MEQ/L (3.5-5.1); SODIUM (NA) 144 MEQ/L (136-145); TOTAL BILIRUBIN ADULT 0.3 MG/DL (0.2-1.0)
[2016-07-17 12:33] LABS: BACTERIA, URINE RARE /hpf; BLOOD, URINE TRACE (NEG); COMMENT (UR) CULT NOT INDICATED; CULTURE IF INDICATED CULT NOT INDICATED; GLUCOSE,URINE NEG (NEG); KETONE, URINE NEG (NEG); MUCUS URINE FEW /lpf (OCC); NITRITE,URINE NEG (NEG); PH, URINE 5.5 (5.0-8.5); SQUAMOUS EPITHELIAL CELL URINE 5 /hpf (0-5); URINE COLOR YELLOW (YELLW/STRAW)
[2016-07-17] MEDS ORDERED: SODIUM CHLOR 0.9% 1000 ML INJ 1,000 ML IV ONE (13:56)
[2016-07-17] MEDS ORDERED: PANTOPRAZOLE SODIUM 40 MG VIAL IVP ONE (14:00)
[2016-07-17] MEDS ORDERED: LIDOCAINE VISCOUS 2% SOLN 15 ML UDC PO ONE (14:00)
[2016-07-17] MEDS ORDERED: ALUMINUM/MAGNESIUM/SIMETH 30 ML CUP PO ONE (14:00)
[2016-07-17] MEDS ORDERED: HYDROmorphone HCL PF 1 MG/ML VIAL IVS ONE (14:00)
[2016-07-17] MEDS ORDERED: LORazepam 2 MG/ML VIAL IV PUSH ONE (14:15)
--- NOTE | 2016-07-17 14:30 | PD ---
Physical Exam Date Seen by Provider: Jul 17, 2016 Time Seen by Provider: 14:26 Narrative 56-year-old female that presents to the ED for evaluation of nausea and vomiting. Patient was initially seen by Nestor ERICKSON and was signed out to me pending labs and disposition. I am actually familiar with this patient as well as I did evaluate her yesterday. Patient did felt improved yesterday after medications but states that she has not been able to keep anything down after she was released from here. She states that she feels still pretty lousy and she is unable to tolerate any of her by mouth medications as he is still some. Please refer to the parents provider for further information. Data Data Last Documented VS Vital Signs Date Time Temp Pulse Resp B/P Pulse Ox O2 Delivery O2 Flow Rate FiO2 07/17/16 09:45 98.2 98 14 142/98 98 Orders Complete Blood Count With Diff (07/17/16 11:15) Comprehensive Metabolic Panel (07/17/16 11:15) Lipase (07/17/16 11:15) Urinalysis - C+S If Indicated (07/17/16 11:15) Electrocardiogram (07/17/16 11:15) Pantoprazole Inj (Protonix Inj) (07/17/16 14:00) Sodium Chlor 0.9% 1000 Ml Inj (Ns 1000 M (07/17/16 13:56) Hydromorphone Pf Inj (Dilaudid Pf Inj) (07/17/16 14:00) Al-Mag Hy-Si 40-40-4 Mg/Ml Liq (Mag-Al P (07/17/16 14:00) Lidocaine 2% Viscous (Xylocaine 2% Visco (07/17/16 14:00) Lorazepam Inj (Ativan Inj) (07/17/16 14:15) Admit Order (Ed Use Only) (07/17/16 15:20) Labs Laboratory Tests Test 07/17/16 07/17/16 11:37 11:50 White Blood Count 3.6 TH/MM3 Red Blood Count 4.21 MIL/MM3 Hemoglobin 11.7 GM/DL Hematocrit 36.0 % Mean Corpuscular Volume 85.6 FL Mean Corpuscular Hemoglobin 27.8 PG Mean Corpuscular Hemoglobin 32.5 % Concent Red Cell Distribution Width 17.1 % Platelet Count 203 TH/MM3 Mean Platelet Volume 9.1 FL Neutrophils (%) (Auto) 62.6 % Lymphocytes (%) (Auto) 28.6 % Monocytes (%) (Auto) 6.9 % Eosinophils (%) (Auto) 1.8 % Basophils (%) (Auto) 0.1 % Neutrophils # (Auto) 2.3 TH/MM3 Lymphocytes # (Auto) 1.0 TH/MM3 Monocytes # (Auto) 0.2 TH/MM3 Eosinophils # (Auto) 0.1 TH/MM3 Basophils # (Auto) 0.0 TH/MM3 CBC Comment DIFF FINAL Differential Comment Sodium Level 144 MEQ/L Potassium Level 3.9 MEQ/L Chloride Level 113 MEQ/L Carbon Dioxide Level 24.2 MEQ/L Anion Gap 7 MEQ/L Blood Urea Nitrogen 12 MG/DL Creatinine 0.85 MG/DL Estimat Glomerular Filtration 69 ML/MIN Rate Random Glucose 83 MG/DL Calcium Level 8.7 MG/DL Total Bilirubin 0.3 MG/DL Aspartate Amino Transf 37 U/L (AST/SGOT) Alanine Aminotransferase 34 U/L (ALT/SGPT) Alkaline Phosphatase 85 U/L Total Protein 6.6 GM/DL Albumin 3.5 GM/DL Lipase 411 U/L Urine Color YELLOW Urine Turbidity CLEAR Urine pH 5.5 Urine Specific [place] 1.015 Urine Protein NEG mg/dL Urine Glucose (UA) NEG mg/dL Urine Ketones NEG mg/dL Urine Occult Blood TRACE Urine Nitrite NEG Urine Bilirubin NEG Urine Urobilinogen LESS THAN 2.0 MG/DL Urine Leukocyte Esterase SMALL Urine RBC 2 /hpf Urine WBC 4 /hpf Urine Squamous Epithelial 5 /hpf Cells Urine Bacteria RARE /hpf Urine Mucus FEW /lpf Microscopic Urinalysis Comment CULT NOT INDICATED MDM Medical Record Reviewed: Yes Supervised Visit with AGNES: No Interpretation(s) CBC & BMP Diagram 07/17/16 11:37 UA negative. Lipase is slightly elevated in the 400s. Differential Diagnosis Dehydration versus intractable nausea versus intractable vomiting versus chronic pain versus GERD Narrative Course 56-year-old female that presents to the ED for evaluation of abdominal pain and nausea and vomiting. Please refer to the previous provider note. Patient is well-known to me and to staff as she is a frequent flier to the hospital. Patient still complains that she cannot keep anything by mouth. On exam she does look dehydrated. She does not feel improved from yesterday and she is unable to keep any of her own by mouth. Pain medications. Because of her symptoms and her [facility] outpatient treatment I spoke with my attending Dr. Sorto who evaluated the patient and agrees the patient requires obs ADMISSION for intractable nausea and vomiting.. Initial labs were essentially negative. [facility] hospitalist was contacted Dr. Marquez who requested that I speak with GI specialist. I spoke with Dr. Koenig, who agrees to admission. I spoke again with Dr. Leblanc who agrees to observation. HemaPrompt Test Point of Care Fecal Specimen Occult Blood: Negative Diagnosis Primary Impression: Nausea & vomiting Qualified Code: G43.A1 - Intractable cyclical vomiting with nausea Additional Impression: Abdominal pain Qualified Code: R10.84 - Generalized abdominal pain Admitting Information Admitting Physician Requests: Observation Rajesh Tarango Jul 17, 2016 14:30
[2016-07-17 15:15] VITALS: BP 156/67; PULSE 85; RESP 18; O2SAT 97
[2016-07-17] MEDS ORDERED: PHENAZOPYRIDINE HCL 200 MG TAB PO PRN (16:00)
[2016-07-17] MEDS ORDERED: HYDROmorphone HCL PF 1 MG/ML VIAL IV PUSH PRN (16:00)
[2016-07-17] MEDS ORDERED: NALOXONE HCL 0.4 MG/ML AMP IV PRN (16:00)
[2016-07-17] MEDS ORDERED: ACETAMINOPHEN 325 MG TAB PO PRN (16:00)
[2016-07-17] MEDS ORDERED: ONDANSETRON HCL 4 MG/2 ML VIAL IVP PRN (16:00)
[2016-07-17] MEDS ORDERED: SODIUM CHLORIDE 0.9% FLUSH 5 ML FLUSH FLUSH PRN (16:00)
[2016-07-17] MEDS ORDERED: hydrOXYzine HCL 50 MG TAB PO PRN (16:00)
[2016-07-17] MEDS: DOCUSATE SODIUM 100 MG CAP PO SCH (16:00)
[2016-07-17] MEDS ORDERED: METOCLOPRAMIDE HCL 10 MG/2 ML VIAL IV PUSH PRN (16:00)
--- NOTE | 2016-07-17 16:27 | MB ---
cc: MONIQUE CALABRESE M.D., JAWED PECK, REBECCA (. M.D. DATE OF CONSULTATION: 07/17/2016. REASON FOR CONSULTATION: Nausea, vomiting, abdominal pain, gastroparesis. PATIENT OF: Dr. Clotlide Gamez. HISTORY OF PRESENT ILLNESS: Ms. Alcala is a 56-year-old lady with chronic problems with nausea, vomiting, abdominal pain. She has an extensive past medical and surgical history. She is in and out of the hospital repetitively for similar complaints. previous workup includes MRIs, gastric emptying scan, endoscopy and a colonoscopy. She says for the last four days her pain is worse. She was unable to keep anything down so she came to the hospital. PAST MEDICAL HISTORY: 1. Kidney cancer ten years ago. 2. CVA. 3. Hiatal hernia. 4. Headaches. 5. Myocardial infarction. PAST SURGICAL HISTORY: 1. Tubal ligation. 2. D&C. 3. Cholecystectomy. 4. Right nephrectomy. 5. Partial gastrectomy done in 2002. 6. Appendectomy. 7. Cardiac surgery. SOCIAL HISTORY: No tobacco. No alcohol. ALLERGIES: 1. COMPAZINE. 2. GADOLINIUM. 3. LOBSTER. 4. MORPHINE. 5. PHENERGAN. 6. TORADOL. 7. ZOFRAN. 8. PENICILLIN. MEDICATIONS ON ADMISSION: 1. Dilaudid. 2. Valium. 3. Ciprofloxacin. 4. . 5. Zyprexa. 6. Hydroxyzine. 7. Imipramine. REVIEW OF SYSTEMS: The review of systems includes nausea, vomiting and abdominal pain at this time. The patient is asking for pain medicines even prior to the IV being started because she states she has had multiple sticks for the IV, she has a lot of pain and would require pain medicines IM prior to any further attempts with IV placement. PHYSICAL EXAMINATION: GENERAL: The physical exam reveals an anxious-looking lady in no apparent distress. HEAD AND NECK: Anicteric sclerae. CHEST: Bilateral air entry ABDOMEN: Abdomen is soft. Tenderness present diffusely. No guarding. No rigidity. FARM EQUIPMENT OPERATOR: Nonfocal. RECTAL: Deferred at this time. LABS: Labs reveal white cell count of 3.6, hemoglobin 11.7, lipase 411. Liver function tests normal. IMPRESSION: Nausea, vomiting, gastroparesis, abdominal pain. RECOMMENDATIONS: The patient has had extensive workup in the past, most of it done recently. I have would recommend erythromycin to be started IV twice a day, Protonix IV. The patient has had recent imaging studies without any findings. Possible endoscopy can be repeated depending upon clinical course. This has been discussed with Dr. Leblanc, the patient's admitting physician. Will follow with you. Thank you for this referral. MD NORBERT Mota/ANGY /4:03 PM /4:15 PM MTDD
[2016-07-17 17:01] VITALS: BP 128/88; PULSE 69; RESP 18; O2SAT 99
[2016-07-17] MEDS ORDERED: PILL SPLITTER OTHER PRN (17:45)
--- NOTE | 2016-07-17 18:37 | MH ---
cc: BRENDA LEBLANC DATE OF ADMISSION: 07/17/2016 REASON FOR ADMISSION: Intractable nausea, vomiting, and abdominal pain. ADMISSION DOCTOR: Dr. Brenda Leblanc. PRIMARY CARE PHYSICIAN: Dr. Clotilde Gamez. HISTORY OF PRESENT ILLNESS: The patient is a 56-year-old female who is known to our service from quite a few previous admissions. The patient has had chronic abdominal pain and nausea and vomiting. The patient has a history of gastroparesis. She is on a chronic Fentanyl and Dilaudid. The patient again came to the ER because of the intractable nausea, vomiting and abdominal pain. According to the patient this time it has been going on for three to four days and she has been unable to keep anything down. She still feels pretty lousy and she is unable to tolerate anything by mouth. The patient was evaluated by the emergency room physician who did talk to the earth boring machine operator who recommended for admission for intractable nausea and vomiting with gastroparesis and chronic abdominal pain. The patient is seen in her ER room with the emergency room nurse at bedside. The patient is still having nausea. She has abdominal pain which is severe in intensity as per the patient. She has no other associated symptoms. PAST MEDICAL HISTORY Her past medical history is significant for: 1. Gastroparesis. 2. Chronic abdominal pain after multiple surgeries in the past. 3. Acute myocardial infarction. 4. Anxiety. 5. Migraines. 6. History of seizures in the past. 7. Fatty liver. 8. which lead to embolic stroke in the past. PAST SURGICAL HISTORY: 1. History of right nephrectomy. 2. Tubal ligation. 3. Gastrectomy with pouch hernia repair. 4. Appendectomy. 5. Cholecystectomy. 6. Hysterectomy. 7. Tonsillectomy. 8. Fundoplication. 9. PFO closure with . MEDICATIONS: Reviewed. Please see the MAR. ALLERGIES: THE PATIENT HAS MULTIPLE MEDICAL ALLERGIES INCLUDIN. COMPAZINE. 2. GADOLINIUM. 3. LOBSTER. 4. MORPHINE. 5. PENICILLIN. 6. PHENERGAN. 7. REGLAN. 8. SULFA. 9. TORADOL. 10. ZOFRAN. SOCIAL HISTORY: The patient does not take alcohol or smoke. FAMILY HISTORY: The mother had multiple sclerosis and COPD. The father had COPD. REVIEW OF SYSTEMS: The review of systems is as described above in the history of present illness and is negative for ten systems. PHYSICAL EXAMINATION: GENERAL: The patient is alert and oriented x3, thin built lying on bed not in any apparent cardiorespiratory distress. VITAL SIGNS: The vitals show the patient is afebrile, Pulse is 69, respiratory rate 18, blood pressure 128/88, pulse oximetry of 99 on room air. HEAD, EYES, EARS, NOSE, THROAT: Head is normocephalic and atraumatic. Eyes - negative conjunctival icterus. Mouth unremarkable. NECK: The neck is supple. No increased jugular venous distention. Central trachea. RESPIRATORY SYSTEM: Chest clear to auscultation. CARDIOVASCULAR: S1 and S2 audible. Unable to hear any S3 gallop. GASTROINTESTINAL: Abdomen soft, tender seems to be mostly upper abdomen. No rebound. Unable to appreciate any guarding. noted. Positive bowel sounds. MUSCULOSKELETAL: No cyanosis or pedal edema appreciated. CENTRAL NERVOUS SYSTEM: Grossly intact. SKIN: Warm and dry. PSYCHIATRIC: Appropriate mood and affect. INVESTIGATIONS: WBCs 3.6, hemoglobin/hematocrit and platelet count within normal limits. Chloride 113, GFR 69 otherwise BMP within normal limits. Liver function tests within normal limits. Lipase 411. Urinalysis shows urine occult blood trace, leukocyte esterase small and bacteria rare, mucus few. ASSESSMENT: 1. Intractable nausea and vomiting. 2. Chronic abdominal pain with increasing lipase questionable pancreatitis nausea and vomiting. 3. History of SD in the past. 4. Slight leukopenia. PLAN: 1. Admit to the floor. 2. GI consultation appreciated. Discussed with the earth boring machine operator. 3. IV hydration. 4. IV analgesics. 5. Antiemetics on a PRN basis. 6. Continue home medications as indicated. 7. Labs in the morning. 8. Condition discussed with the patient in detail. 9. Discussed with the emergency room P.A. 10. Discussed with GI. 11. Discussed with the RN. Further recommendations will follow as the patient progresses. Brenda Leblanc MD JP/ANGY /6:12 PM /6:25 PM PT SEEN AND EXAMINED ON DAY ADMISSION ABOVE FACE TO FACE TIME SPENT WITH PT CHART WAS REVIEWED. INCLUDING LABS MEDS AND RAD DATA NOTES WERE REVEIWED PLAN OF CARE WAS DW RADIOLOGY RN ABOVE DW PT IN DETAIL DW GI IN ER ON DAY OF ADMISSION DW ER PA COND WAS GUARDED MTDD
[2016-07-17 18:38] VITALS: BP 141/86; PULSE 68; RESP 20
[2016-07-17 18:46] VITALS: BP 136/88; PULSE 61; RESP 20
[2016-07-17] MEDS: DIAZEPAM 10 MG TAB PO SCH (18:48)
[2016-07-17] MEDS: SODIUM CHLORIDE 0.9% FLUSH 5 ML FLUSH FLUSH SCH (21:00)
[2016-07-17 21:20] VITALS: BP 129/81; PULSE 61; RESP 19; TEMP 98.1; O2SAT 98
[2016-07-17] MEDS: IMIPRAMINE HCL 25 MG TAB PO SCH (21:28)
[2016-07-17] MEDS: OLANZapine 5 MG TAB PO SCH (21:28)
[2016-07-17] MEDS: busPIRone HCL 5 MG TAB PO SCH (21:28)
[2016-07-17] MEDS: LORazepam 2 MG/ML VIAL IV PRN (22:56)
[2016-07-17] MEDS: HYDROmorphone HCL PF 1 MG/ML VIAL IV PRN (22:57)
[2016-07-18 03:22] VITALS: BP 124/68; PULSE 71; RESP 18; TEMP 98; O2SAT 97
[2016-07-18] MEDS: HYDROmorphone HCL PF 1 MG/ML VIAL IV PRN ×5 (03:46→21:12)
[2016-07-18] MEDS: DOCUSATE SODIUM 100 MG CAP PO SCH ×2 (04:00→15:40)
[2016-07-18] MEDS: LORazepam 2 MG/ML VIAL IV PRN ×2 (05:20→22:34)
--- NOTE | 2016-07-18 07:35 | HHI.PR ---
Subjective Subjective Remarks Complaining of persistent nausea, dry heaves Indicates severe abdominal pain, mid abdomen radiates all the way across the back States the pain is worse than before, "it's my pancreatitis" Requesting more hydromorphone intravenously Afebrile No chest pain No vomiting noted per staff Has been able to tolerate oral medications Review of Systems Constitutional Constitutional Remarks 12 point ROS completed, negative except as noted above Vitals/Results Vital Signs Vital Signs Date Time Temp Pulse Resp B/P Pulse Ox O2 Delivery O2 Flow Rate FiO2 07/18/16 03:22 98.0 71 18 124/68 97 07/17/16 21:20 98.1 61 19 129/81 98 07/17/16 18:46 61 20 136/88 Room Air 07/17/16 18:38 68 20 141/86 Room Air 07/17/16 17:01 69 18 128/88 99 Room Air 07/17/16 09:45 98.2 98 14 142/98 98 CBC/BMP: 07/17/16 1137 07/17/16 1137 Lab Results Laboratory Tests Test 07/17/16 07/17/16 11:37 11:50 White Blood Count 3.6 TH/MM3 Red Blood Count 4.21 MIL/MM3 Hemoglobin 11.7 GM/DL Hematocrit 36.0 % Mean Corpuscular Volume 85.6 FL Mean Corpuscular Hemoglobin 27.8 PG Mean Corpuscular Hemoglobin 32.5 % Concent Red Cell Distribution Width 17.1 % Platelet Count 203 TH/MM3 Mean Platelet Volume 9.1 FL Neutrophils (%) (Auto) 62.6 % Lymphocytes (%) (Auto) 28.6 % Monocytes (%) (Auto) 6.9 % Eosinophils (%) (Auto) 1.8 % Basophils (%) (Auto) 0.1 % Neutrophils # (Auto) 2.3 TH/MM3 Lymphocytes # (Auto) 1.0 TH/MM3 Monocytes # (Auto) 0.2 TH/MM3 Eosinophils # (Auto) 0.1 TH/MM3 Basophils # (Auto) 0.0 TH/MM3 CBC Comment DIFF FINAL Differential Comment Sodium Level 144 MEQ/L Potassium Level 3.9 MEQ/L Chloride Level 113 MEQ/L Carbon Dioxide Level 24.2 MEQ/L Anion Gap 7 MEQ/L Blood Urea Nitrogen 12 MG/DL Creatinine 0.85 MG/DL Estimat Glomerular Filtration 69 ML/MIN Rate Random Glucose 83 MG/DL Calcium Level 8.7 MG/DL Total Bilirubin 0.3 MG/DL Aspartate Amino Transf 37 U/L (AST/SGOT) Alanine Aminotransferase 34 U/L (ALT/SGPT) Alkaline Phosphatase 85 U/L Total Protein 6.6 GM/DL Albumin 3.5 GM/DL Lipase 411 U/L Urine Color YELLOW Urine Turbidity CLEAR Urine pH 5.5 Urine Specific [place] 1.015 Urine Protein NEG mg/dL Urine Glucose (UA) NEG mg/dL Urine Ketones NEG mg/dL Urine Occult Blood TRACE Urine Nitrite NEG Urine Bilirubin NEG Urine Urobilinogen LESS THAN 2.0 MG/DL Urine Leukocyte Esterase SMALL Urine RBC 2 /hpf Urine WBC 4 /hpf Urine Squamous Epithelial 5 /hpf Cells Urine Bacteria RARE /hpf Urine Mucus FEW /lpf Microscopic Urinalysis Comment CULT NOT INDICATED Physical Exam General General Appearance: Well Developed, No Acute Distress, Comfortable, Anxious Eyes Eye Exam: Pupils Equal, Pupils Reactive Ears & Nose Ears & Nose Exam: Nasal Mucosa Flora Throat Throat Exam: Oral Mucosa Flora & Moist Neck Neck Exam: Neck Supple, Trachea Midline Pulmonary Resp Exam: Clear Bilaterally Cardiology CV Exam: Regular, Good Perfusion Gastrointestinal/Abdomen GI Exam: Soft, Non-Distended, Bowel Sounds Hypoactive GI Remarks diffuse abdominal tenderness voluntary guarding c/o pain with minimal touch Musculoskeletal MS Exam: Joints Intact Integumentary Skin Exam: Warm, Dry Extremeties Extremities Exam: No Edema, Pedal Pulses Palpable Neurologic Neuro Exam: Alert, Awake, Oriented, Speech Clear, Moving All Extremities, No Focal Deficits Psychiatric Psych Exam: Appropriate Responses VTE Prophylaxis VTE Prophylaxis Device: SCDs PUD Prophylasis PUD Prophylaxis: Protonix Assessment/Plan Problem List: (1) Abdominal pain (2) Nausea & vomiting (3) Chronic narcotic dependence (4) Chronic pain (5) History of fundoplication (6) GERD (gastroesophageal reflux disease) (7) History of gastrectomy (8) Hx of hiatal hernia (9) Elevated lipase Assessment/Plan Appreciate gastroenterology input, recommends to continue with symptom management, patient has had extensive workup in the past no interventions recommended at this time Patient recommended to follow-up at [facility] [place] due to chronicity of problems Patient is to follow-up with outpatient apprentice painter brush as well Continue with IV fluids Anti-emetics as needed Continue with Valium [id number] as well as Ativan when necessary Continue with Dilaudid for now we'll start weaning off later today and changed to oral medications Attending discussed with patient at length the need to monitor her narcotic use as this worsens gastroparesis Advance diet to clear liquid Continue home medications SCDs for DVT prophylaxis We will add Protonix for GI prophylaxis Monitor electrolytes Labs pending, poor IV access Hopefully discharge tomorrow D/W RN D/W Dr. Leblanc D/W pt This patient was seen by myself and Dr. Leblanc, this note is written on his behalf Problem Qualifiers (1) Abdominal pain: Qualified Code: R10.84 - Generalized abdominal pain (2) Nausea & vomiting: Qualified Code: G43.A1 - Intractable cyclical vomiting with nausea (3) Chronic pain: Qualified Code: G89.4 - Chronic pain syndrome (4) GERD (gastroesophageal reflux disease): Qualified Code: K21.9 - Gastroesophageal reflux disease, esophagitis presence not specified Leatha Levine Jul 18, 2016 07:35
[2016-07-18 07:45] VITALS: BP 131/74; PULSE 78; RESP 17; TEMP 98; O2SAT 100
[2016-07-18] MEDS: SODIUM CHLOR 0.9% 1000 ML INJ 1,000 ML IV SCH ×3 (08:09→21:32)
[2016-07-18] MEDS: SODIUM CHLORIDE 0.9% FLUSH 5 ML FLUSH FLUSH SCH ×2 (09:25→21:00)
[2016-07-18] MEDS: busPIRone HCL 5 MG TAB PO SCH ×2 (09:25→21:11)
[2016-07-18] MEDS: OLANZapine 5 MG TAB PO SCH ×2 (09:26→21:00)
[2016-07-18] MEDS: DIAZEPAM 10 MG TAB PO SCH ×3 (09:26→18:34)
--- NOTE | 2016-07-18 09:52 | HHI.GIFU ---
Subjective Remarks Resting in bed. States her pain is "real bad today." C/O constant epigastric/ LUQ pain "where my pancreatitis is." C/O Nausea, but is anxious to have diet advanced. (Nalini Willett) Objective Vitals I&O Vital Signs Date Time Temp Pulse Resp B/P Pulse Ox O2 Delivery O2 Flow Rate FiO2 07/18/16 07:45 98.0 78 17 131/74 100 07/18/16 03:22 98.0 71 18 124/68 97 07/17/16 21:20 98.1 61 19 129/81 98 07/17/16 18:46 61 20 136/88 Room Air 07/17/16 18:38 68 20 141/86 Room Air 07/17/16 17:01 69 18 128/88 99 Room Air 07/17/16 09:45 98.2 98 14 142/98 98 Laboratory Laboratory Tests Test 07/17/16 07/17/16 11:37 11:50 White Blood Count 3.6 Red Blood Count 4.21 Hemoglobin 11.7 Hematocrit 36.0 Mean Corpuscular Volume 85.6 Mean Corpuscular Hemoglobin 27.8 Mean Corpuscular Hemoglobin 32.5 Concent Red Cell Distribution Width 17.1 Platelet Count 203 Mean Platelet Volume 9.1 Neutrophils (%) (Auto) 62.6 Lymphocytes (%) (Auto) 28.6 Monocytes (%) (Auto) 6.9 Eosinophils (%) (Auto) 1.8 Basophils (%) (Auto) 0.1 Neutrophils # (Auto) 2.3 Lymphocytes # (Auto) 1.0 Monocytes # (Auto) 0.2 Eosinophils # (Auto) 0.1 Basophils # (Auto) 0.0 CBC Comment DIFF FINAL Differential Comment Sodium Level 144 Potassium Level 3.9 Chloride Level 113 Carbon Dioxide Level 24.2 Anion Gap 7 Blood Urea Nitrogen 12 Creatinine 0.85 Estimat Glomerular Filtration 69 Rate Random Glucose 83 Calcium Level 8.7 Total Bilirubin 0.3 Aspartate Amino Transf 37 (AST/SGOT) Alanine Aminotransferase 34 (ALT/SGPT) Alkaline Phosphatase 85 Total Protein 6.6 Albumin 3.5 Lipase 411 Urine Color YELLOW Urine Turbidity CLEAR Urine pH 5.5 Urine Specific [place] 1.015 Urine Protein NEG Urine Glucose (UA) NEG Urine Ketones NEG Urine Occult Blood TRACE Urine Nitrite NEG Urine Bilirubin NEG Urine Urobilinogen LESS THAN 2.0 Urine Leukocyte Esterase SMALL Urine RBC 2 Urine WBC 4 Urine Squamous Epithelial 5 Cells Urine Bacteria RARE Urine Mucus FEW Microscopic Urinalysis Comment CULT NOT INDICATED Physical Exam HEENT: Normocephalic; atraumatic; no jaundice. Throat is clear. NECK: Neck is supple, no JVD, no lymphadenopathy. CHEST: CTA. CARDIAC: RRR ABDOMEN: Soft, nondistended, diffuse tenderness, worse in epigastric area, left side.; no hepatosplenomegaly; bowel sounds are present in all four quadrants. EXTREMITIES: No clubbing, cyanosis, or edema. SKIN: Normal; no rash; no jaundice. BOILER ROOM OPERATOR: No focal deficits; alert and oriented times three. (Nalini Willett) Assessment and Plan Plan ASSESSMENT: - Acute on chronic abdominal pain with associated nausea/dry heaving. S/P extensive testing with EGD/Colonoscopy, CT scans, Xrays, MRI, GES. Recently found to have gastroparesis with good response to EES. EGD/Colonoscopy (11/22/15) and this revealed s/p gastric bypass, biopsy of gastric polyp; diverticulosis in sigmoid and descending colon, retroflexed views revealed small internal hemorrhoids, external hemorrhoids. Pathology revealed mild chronic gastritis, negative for helicobacter pylori. Pt still with significant pain and nausea, but also feels that her hunger may be contributing to this and would like a diet ordered. Will give clear liquids, trial of EES, PPI. - Elevated lipase, undetermined significance. This is very minimally elevated and suspect that it may be related to her n/v. PLAN: - Clear liquids - IVF - PPI - EES - Zofran prn - Consider repeat EGD if no improvement - Supportive care - Further recommendations to follow based on results of above - Pt seen and examined by Dr. Charles and myself and this note is written on his behalf (Nalini Willett) Physician Comments Agree with above, repeat lipase, amylase. Advance diet. Possible egd next week. (Siobhan Charles MD) Nalini Willett Jul 18, 2016 09:52 Siobhan Charles MD Jul 18, 2016 12:56
[2016-07-18] MEDS: PANTOPRAZOLE SOD 40 MG DELAYED RELEASE TAB PO SCH (10:42)
[2016-07-18] MEDS: ERYTHROMYCIN IV SCH ×2 (11:17→18:36)
[2016-07-18] MEDS: SODIUM CHLORIDE 0.9% IV SCH ×2 (11:17→18:36)
[2016-07-18 12:21] VITALS: BP 135/82; PULSE 65; RESP 17; TEMP 97.8; O2SAT 100
--- NOTE | 2016-07-18 13:16 | EKG ---
Date Performed: 07/17/2016 Time Performed: 12:05:29 PTAGE: 56 years EKG: Sinus rhythm LEFT BUNDLE BRANCH BLOCK ABNORMAL ECG Compared to prior tracing no significant change PREVIOUS TRACING : 07/11/2016 07.43 DOCTOR: Deion Hannon Interpretating Date/Time 07/18/2016 13:13:57
[2016-07-18 13:43] LABS: ALT (GPT) 25 U/L (10-53); ANION GAP 10 MEQ/L (5-15); AST (GOT) 36 U/L (15-37); BICARBONATE 22.6 MEQ/L (21.0-32.0); CHLORIDE 110 MEQ/L (98-107); GLOMERULAR FILTRATION RATE 82 ML/MIN (>89); POTASSIUM 3.9 MEQ/L (3.5-5.1); SODIUM (NA) 143 MEQ/L (136-145)
[2016-07-18 13:45] LABS: ALKALINE PHOSPHATASE 74 U/L (45-117); TOTAL BILIRUBIN ADULT 0.3 MG/DL (0.2-1.0)
[2016-07-18 14:00] LABS: BLOOD UREA NITROGEN 6 MG/DL (7-18)
[2016-07-18 15:30] VITALS: BP 116/72; PULSE 73; RESP 18; TEMP 98.3; O2SAT 97
[2016-07-18 16:28] LABS: AUTOMATED NEUTROPHIL # 1.3 TH/MM3 (1.8-7.7); BASOPHIL % 0.1 % (0.0-2.0); EOSINOPHIL # 0.2 TH/MM3 (0-0.4); EOSINOPHIL % 5.7 % (0.0-4.0); HEMATOCRIT 29.5 % (35.0-46.0); HEMO FLAGS DIFF FINAL; LYMPH % 47.7 % (9.0-44.0); LYMPHOCYTE # 1.6 TH/MM3 (1.0-4.8); MEAN CELL VOLUME 85.7 FL (80.0-100.0); MEAN CORPUSCULAR HGB CONC 33.9 % (32.0-36.0); MONO % 8.4 % (0.0-8.0); NEUT % 38.1 % (16.0-70.0); PLATELET COUNT 145 TH/MM3 (150-450); RED BLOOD COUNT 3.44 MIL/MM3 (4.00-5.30); WHITE BLOOD COUNT 3.4 TH/MM3 (4.0-11.0)
[2016-07-18 19:36] VITALS: BP 120/72; PULSE 76; RESP 17; TEMP 98.2; O2SAT 96
[2016-07-18] MEDS: IMIPRAMINE HCL 25 MG TAB PO SCH (21:33)
[2016-07-18 23:45] VITALS: BP 116/72; PULSE 73; RESP 19; TEMP 98.2; O2SAT 96
[2016-07-19] MEDS: SODIUM CHLORIDE 0.9% IV SCH ×2 (03:24→10:53)
[2016-07-19] MEDS: ERYTHROMYCIN IV SCH ×2 (03:24→10:53)
[2016-07-19] MEDS: HYDROmorphone HCL PF 1 MG/ML VIAL IV PRN ×2 (03:25→08:05)
[2016-07-19] MEDS: DOCUSATE SODIUM 100 MG CAP PO SCH ×2 (03:53→15:00)
[2016-07-19 04:20] VITALS: BP 118/74; PULSE 72; RESP 18; TEMP 98; O2SAT 96
[2016-07-19] MEDS: LORazepam 2 MG/ML VIAL IV PRN (04:56)
[2016-07-19 08:00] VITALS: BP 146/84; PULSE 70; RESP 18; TEMP 98; O2SAT 93
[2016-07-19] MEDS: SODIUM CHLOR 0.9% 1000 ML INJ 1,000 ML IV SCH (08:10)
--- NOTE | 2016-07-19 08:18 | HHI.PR ---
Subjective Subjective Remarks has been able to keep liquids down nausea improved, no vomiting pain still persistent, slight improvement wants to try more foods and poss. go home this afternoon ok with switching to PO Dilaudid understands she has to call [facility] or [facility] for further work up for chronic GI and pain problems no fever no cp no sob Review of Systems Constitutional Constitutional Remarks 12 point ROS completed, negative except as noted above Vitals/Results Intake & Output 07/18/16 07/18/16 07/19/16 15:00 23:00 07:00 Intake Total 1200 ml Balance 1200 ml Intake IV Total 1200 ml Vital Signs Vital Signs Date Time Temp Pulse Resp B/P Pulse Ox O2 Delivery O2 Flow Rate FiO2 07/19/16 08:00 98.0 70 18 146/84 93 07/19/16 04:20 98.0 72 18 118/74 96 07/18/16 23:45 98.2 73 19 116/72 96 07/18/16 19:36 98.2 76 17 120/72 96 07/18/16 15:30 98.3 73 18 116/72 97 07/18/16 12:21 97.8 65 17 135/82 100 CBC/BMP: 07/18/16 1612 07/18/16 1233 Lab Results Laboratory Tests Test 07/18/16 07/18/16 12:33 16:12 Sodium Level 143 MEQ/L Potassium Level 3.9 MEQ/L Chloride Level 110 MEQ/L Carbon Dioxide Level 22.6 MEQ/L Anion Gap 10 MEQ/L Blood Urea Nitrogen 6 MG/DL Creatinine 0.73 MG/DL Estimat Glomerular Filtration 82 ML/MIN Rate Random Glucose 75 MG/DL Calcium Level 8.0 MG/DL Total Bilirubin 0.3 MG/DL Aspartate Amino Transf 36 U/L (AST/SGOT) Alanine Aminotransferase 25 U/L (ALT/SGPT) Alkaline Phosphatase 74 U/L Total Protein 5.5 GM/DL Albumin 3.0 GM/DL Lipase 149 U/L White Blood Count 3.4 TH/MM3 Red Blood Count 3.44 MIL/MM3 Hemoglobin 10.0 GM/DL Hematocrit 29.5 % Mean Corpuscular Volume 85.7 FL Mean Corpuscular Hemoglobin 29.0 PG Mean Corpuscular Hemoglobin 33.9 % Concent Red Cell Distribution Width 17.0 % Platelet Count 145 TH/MM3 Mean Platelet Volume 9.3 FL Neutrophils (%) (Auto) 38.1 % Lymphocytes (%) (Auto) 47.7 % Monocytes (%) (Auto) 8.4 % Eosinophils (%) (Auto) 5.7 % Basophils (%) (Auto) 0.1 % Neutrophils # (Auto) 1.3 TH/MM3 Lymphocytes # (Auto) 1.6 TH/MM3 Monocytes # (Auto) 0.3 TH/MM3 Eosinophils # (Auto) 0.2 TH/MM3 Basophils # (Auto) 0.0 TH/MM3 CBC Comment DIFF FINAL Differential Comment Physical Exam General General Appearance: Well Developed, No Acute Distress, Comfortable, Anxious Eyes Eye Exam: Pupils Equal, Pupils Reactive Ears & Nose Ears & Nose Exam: Nasal Mucosa Valier Throat Throat Exam: Oral Mucosa Valier & Moist Neck Neck Exam: Neck Supple, Trachea Midline Pulmonary Resp Exam: Clear Bilaterally Cardiology CV Exam: Regular, Good Perfusion Gastrointestinal/Abdomen GI Exam: Soft, Bowel Sounds Present, Non-Distended, Bowel Sounds Hypoactive GI Remarks diffuse tenderness Musculoskeletal MS Exam: Joints Intact Integumentary Skin Exam: Warm, Dry Extremeties Extremities Exam: No Edema, Pedal Pulses Palpable Neurologic Neuro Exam: Alert, Awake, Oriented, Speech Clear, Moving All Extremities, No Focal Deficits Psychiatric Psych Exam: Appropriate Responses VTE Prophylaxis VTE Prophylaxis Device: SCDs PUD Prophylasis PUD Prophylaxis: Protonix Assessment/Plan Problem List: (1) Abdominal pain (2) Nausea & vomiting (3) Chronic narcotic dependence (4) Chronic pain (5) History of fundoplication (6) GERD (gastroesophageal reflux disease) (7) History of gastrectomy (8) Hx of hiatal hernia (9) Elevated lipase Assessment/Plan Appreciate gastroenterology input, recommends to continue with symptom management, patient has had extensive workup in the past no interventions recommended at this time Patient recommended to follow-up at [facility] possibly [facility] due to chronicity of problems Patient is to 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 to 60/hr Anti-emetics as needed Continue with Valium [id number] as well as Ativan when necessary Change to oral Dilaudid, no more IV narcotics, D/W pt and staff Attending discussed with patient at length the need to monitor her narcotic use as this worsens gastroparesis Advance to full liquid diet started on Erythromycin by GI, tolerating well Continue home medications SCDs for DVT prophylaxis Protonix for GI prophylaxis Lipase back to normal Will re-evaluate this afternoon, if she is able to tolerate full liquid will dc today Needs to F/U at [facility] or [facility] for further work up, verbalizes understanding D/W RN D/W Dr. Leblanc D/W pt This patient was seen by myself and Dr. Leblanc, this note is written on his behalf Problem Qualifiers (1) Abdominal pain: Qualified Code: R10.84 - Generalized abdominal pain (2) Nausea & vomiting: Qualified Code: G43.A1 - Intractable cyclical vomiting with nausea (3) Chronic pain: Qualified Code: G89.4 - Chronic pain syndrome (4) GERD (gastroesophageal reflux disease): Qualified Code: K21.9 - Gastroesophageal reflux disease, esophagitis presence not specified Leatha Levine Jul 19, 2016 08:18
[2016-07-19] MEDS: PANTOPRAZOLE SOD 40 MG DELAYED RELEASE TAB PO SCH (09:17)
[2016-07-19] MEDS: busPIRone HCL 5 MG TAB PO SCH (09:17)
[2016-07-19] MEDS: DIAZEPAM 10 MG TAB PO SCH ×2 (09:17→13:08)
[2016-07-19] MEDS: SODIUM CHLORIDE 0.9% FLUSH 5 ML FLUSH FLUSH SCH (09:17)
[2016-07-19] MEDS ORDERED: HYDROmorphone HCL 4 MG TAB PO PRN (10:30)
--- NOTE | 2016-07-19 10:48 | HHI.DCPOC ---
Discharge Care Plan Diagnosis: (1) Abdominal pain (2) Nausea & vomiting (3) Chronic narcotic dependence (4) Elevated lipase (5) Hx of hiatal hernia (6) History of gastrectomy (7) Chronic pain Your Health Problems Are: Appetite Changes Irregular Bowel Function Goals to Promote Your Health * To prevent worsening of your condition and complications * To maintain your health at the optimal level Directions to Meet Your Goals Take your medications as prescribed Follow your dietary instruction Follow activity as directed Keep your appointments as scheduled Take your immunizations and boosters as scheduled If your symptoms worsen call your PCP, if no PCP go to Urgent Care Center or Emergency Room Smoking is Dangerous to Your Health. Avoid second hand smoke Call the 24-hour hour crisis hotline for domestic abuse at Leatha Levine Jul 19, 2016 10:48
[2016-07-19] MEDS: OLANZapine 5 MG TAB PO SCH (10:53)
[2016-07-19 13:42] VITALS: BP 113/71; PULSE 78; RESP 18; O2SAT 96
--- NOTE | 2016-07-19 15:16 | HHI.DS ---
Discharge Summary Admission Date Jul 17, 2016 at 15:21 Discharge Date: Jul 19, 2016 Admitting Diagnosis intractable abdominal pain and nausea and vomit (1) Abdominal pain (2) Nausea & vomiting (3) History of gastrectomy (4) Hx of hiatal hernia (5) Elevated lipase (6) Chronic narcotic dependence (7) Chronic pain (8) History of fundoplication CBC/BMP: 07/18/16 1612 07/18/16 1233 Significant Findings Laboratory Tests Test 07/17/16 07/17/16 07/18/16 07/18/16 11:37 11:50 12:33 16:12 White Blood Count 3.6 TH/MM3 3.4 TH/MM3 (4.0-11.0) (4.0-11.0) Chloride Level 113 MEQ/L 110 MEQ/L (98-107) (98-107) Estimat Glomerular Filtration 69 ML/MIN (>89) 82 ML/MIN (>89) Rate Lipase 411 U/L (73-393) Urine Occult Blood TRACE (NEG) Urine Leukocyte Esterase SMALL (NEG) Urine Bacteria RARE /hpf (NONE) Urine Mucus FEW /lpf (OCC) Blood Urea Nitrogen 6 MG/DL (7-18) Calcium Level 8.0 MG/DL (8.5-10.1) Total Protein 5.5 GM/DL (6.4-8.2) Albumin 3.0 GM/DL (3.4-5.0) Red Blood Count 3.44 MIL/MM3 (4.00-5.30) Hemoglobin 10.0 GM/DL (11.6-15.3) Hematocrit 29.5 % (35.0-46.0) Platelet Count 145 TH/MM3 (150-450) Lymphocytes (%) (Auto) 47.7 % (9.0-44.0) Monocytes (%) (Auto) 8.4 % (0.0-8.0) Eosinophils (%) (Auto) 5.7 % (0.0-4.0) Neutrophils # (Auto) 1.3 TH/MM3 (1.8-7.7) Hospital Course The patient is a 56-year-old female who is known to our service from quite a few previous admissions. The patient has had chronic abdominal pain and nausea and vomiting. The patient has a history of gastroparesis. She is on a chronic Fentanyl and Dilaudid. The patient again came to the ER because of the intractable nausea, vomiting and abdominal pain. According to the patient, this time it has been going on for three to four days and she has been unable to keep anything down. She felt pretty lousy and was unable to tolerate anything by mouth. The patient was evaluated by the emergency room physician who did talk to the small engine technician who recommended for admission for intractable nausea and vomiting with gastroparesis and chronic abdominal pain. The patient was seen in her ER room with the emergency room nurse at bedside. The patient was still having nausea. She had abdominal pain which was severe in intensity as per the patient. She had no other associated symptoms. Pt. was admitted for (1) Abdominal pain (2) Nausea & vomiting (3) Chronic narcotic dependence (4) Chronic pain (5) History of fundoplication (6) GERD (gastroesophageal reflux disease) (7) History of gastrectomy (8) Hx of hiatal hernia (9) Elevated lipase During the course of the hospitalization, the following to place, Patient admitted, put on IV fluids, unable to take Zofran because of allergies. Unable to take Reglan because of allergies Resumed Ativan and Valium, indicated that this helped with nausea Gastroenterology consulted- recommended to continue with symptom management, patient has had extensive workup in the past no interventions recommended at this time Patient recommended to follow-up at [facility] possibly [facility] due to chronicity of problems Erythromycin was added Continue with IV fluids-dec. to 60/hr Anti-emetics as needed Continue with Valium [id number] as well as Ativan when necessary Change to oral Dilaudid, no more IV narcotics, D/W pt and staff Attending discussed with patient at length the need to monitor her narcotic use as this worsens gastroparesis Advance to full liquid diet started on Erythromycin by , tolerating well Diet was advanced slowly, she tolerated well. She had no further vomiting, pain was well controlled. She was changed from IV Dilaudid to oral. Electrolytes remained stable Lipase back to normal, no pancreatitis--Elevation was likely due to nausea vomiting. Continued home medications Put on SCDs for DVT prophylaxis and Protonix for GI prophylaxis Instructed to F/U at [facility] or [facility] for further work up, verbalized understanding Pt. ready for discharge, symptoms better controlled Discharge home Instructed to F/U GI, [facility] or [facility] Diet-as tolerated Activity-as tolerated Pt Condition on Discharge: Stable Discharge Disposition: Discharge Home Discharge Instructions DIET: Follow Instructions for: Heart Healthy Diet Activities you can perform: Weight Bearing as Marcella Follow up Referrals: Gastroenterology with Naomy Hoover MD PCP Follow-up Continued Medications: Buspirone (Buspirone) 7.5 Mg Tab 7.5 MG PO BID Anxiety Ref 0 TAB Cyanocobalamin Inj (Cyanocobalamin Inj) 1,000 Mcg/Ml Inj 1000 MCG IM Q30D #1 Ref 0 VIAL Diazepam (Valium) 10 Mg Tab 10 MG PO TID Ref 0 TAB Hydromorphone (Dilaudid) 4 Mg Tab 4 MG PO Q6H PRN Pain Management Ref 0 TAB Imipramine HCL (Imipramine HCL) 25 Mg Tab 25 MG PO HS Control Depression Ref 0 TAB Olanzapine (Zyprexa) 5 Mg Tab 5 MG PO BID #60 Ref 0 TAB Discontinued Medications: Ciprofloxacin (Ciprofloxacin) 500 Mg Tab 500 MG PO BID Infection Ref 0 TAB Leatha Levine Jul 19, 2016 15:16
[2016-08-07] MEDS ORDERED: CYANOCOBALAMIN 1000 MCG/ML VIAL IM SCH (16:00)
== END 2016-07-19 17:17 | disposition home or self-care (01) ==
LOC: NEPE 09:33 → NEDA 15:21 → NEPHCDU 20:07
PROVIDERS: ADMIT Specialist; ATTEND Specialist
DX: R10.84 Generalized abdominal pain (principal); G43.A1 Cyclical vomiting, in migraine, intractable; G89.4 Chronic pain syndrome; E86.0 Dehydration; E87.6 Hypokalemia; R74.8 Abnormal levels of other serum enzymes; K85.90 Acute pancreatitis without necrosis or infection, unspecified; K76.0 Fatty (change of) liver, not elsewhere classified; I25.2 Old myocardial infarction; Z85.528 Personal history of other malignant neoplasm of kidney; F11.20 Opioid dependence, uncomplicated; Z86.73 Personal history of transient ischemic attack (TIA), and cerebral infarction without residual deficits; Z87.74 Personal history of (corrected) congenital malformations of heart and circulatory system; Z90.5 Acquired absence of kidney; Z90.3 Acquired absence of stomach [part of]; Z98.84 Bariatric surgery status
CPT/HCPCS: 80053; 81001; 83690; 85025; 93005; 99285; C9113; G0378; J1170; J1364; J2060; J7030

== ENCOUNTER 2016-07-22 06:07 | Emergency (ER) | payer BC ==
[~2016-07-22 06:07] MED LIST changes: -CIPR500T2 PO; -HYDR50TA94 PO; -PYRI200T4 PO
[2016-07-22 06:11] VITALS: BP 156/84; PULSE 102; RESP 16; TEMP 98.4; O2SAT 96
--- NOTE | 2016-07-22 11:12 | PD ---
HPI Chief Complaint: Fall Time Seen by Provider: 12:45 Travel History International Travel<30 days: No Contact w/Intl Traveler<30days: No Traveled to known affect area: No History of Present Illness HPI 56-year-old woman, frequent ED patient with chronic recurrent abdominal pain, and pain all over, presents today after she states that she passed out last night and was weak and lying on the floor. She states she has pain all over after a fall. Since include her head elbow and hip. She denies any other new or worsening symptoms. History Past Medical History Narrative Medical Per patient Previous gastrectomy History of kidney CA History of CVA CAD, MD Chest is chronic recurrent abdominal pain, is on chronic opiates. Menopausal: Yes : 1 Para: 1 Dilation and Curettage (D&C): Yes Social History Alcohol Use: No Tobacco Use: No Allergies-Medications (Allergen,Severity, Reaction): Coded Allergies: Compazine (Verified Allergy, Severe, SOB, 07/22/16) Gadolinium Derivatives (Verified Allergy, Severe, RESPIRATORY DISTRESS, ) Lobster (Verified Allergy, Severe, Anaphylaxis, 07/22/16) Morphine (Verified Allergy, Severe, Hives, 07/22/16) PT HAVING HIVES AND ITCHING TO ARM ABOVE IV SITE AFTER ADMINISTRATION OF MORPHINE Phenergan (Verified Allergy, Severe, SOB, 07/22/16) Reglan (Verified Allergy, Severe, SOB, 07/22/16) Toradol (Verified Allergy, Severe, Shortness of Breath, 07/22/16) Zofran (Verified Allergy, Severe, SOB, 07/22/16) Penicillin (Verified Allergy, Mild, RASH, 07/22/16) Sulfa (Verified Allergy, Mild, RASH, 07/22/16) *MDRO Multi-Drug Resistant Organism (Verified Adverse Reaction, Unknown, ) 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 06/23/16 VSV Reported Meds & Prescriptions Reported Meds & Active Scripts Active Reported Dilaudid (Hydromorphone HCl) 4 Mg Tab 4 Mg PO Q6H PRN Valium (Diazepam) 10 Mg Tab 10 Mg PO TID Buspirone (Buspirone HCl) 7.5 Mg Tab 7.5 Mg PO BID Zyprexa (Olanzapine) 5 Mg Tab 5 Mg PO BID Cyanocobalamin Inj (Cyanocobalamin) 1,000 Mcg/Ml Inj 1,000 Mcg IM Q30D Imipramine HCL (Imipramine HCl) 25 Mg Tab 25 Mg PO HS Review of Systems Except as stated in HPI: all other systems reviewed are Neg Physical Exam Narrative GENERAL: 56-year-old woman, no acute distress. SKIN: Warm and dry. HEAD: Normocephalic. She has a couple areas of tenderness but don't see any contusions or bruises or areas of ecchymosis. EYES: Pupils equal and round. No scleral icterus. No injection or drainage. ENT: No nasal bleeding or discharge. Mucous membranes pink and moist. NECK: Trachea midline. Moves neck freely. Some paraspinous muscle neck tenderness. CARDIOVASCULAR: Regular rate and rhythm. No murmur appreciated. RESPIRATORY: No accessory muscle use. Clear to auscultation. Breath sounds equal bilaterally. GASTROINTESTINAL: Admits flat and soft. Minimal diffuse tenderness. MUSCULOSKELETAL: No obvious deformities. Decreased muscle bulk. No edema. NEUROLOGICAL: Awake and alert. No obvious cranial nerve deficits. Motor grossly within normal limits. Normal speech. PSYCHIATRIC: Anxious. Data Data Last Documented VS Vital Signs Date Time Temp Pulse Resp B/P Pulse Ox O2 Delivery O2 Flow Rate FiO2 07/22/16 06:11 98.4 102 16 156/84 96 Orders Complete Blood Count With Diff (07/22/16 10:52) Basic Metabolic Panel (Bmp) (07/22/16 10:52) Electrocardiogram (07/22/16 ) Labs Laboratory Tests Test 07/22/16 11:15 White Blood Count 3.8 TH/MM3 Red Blood Count 4.05 MIL/MM3 Hemoglobin 11.6 GM/DL Hematocrit 34.8 % Mean Corpuscular Volume 86.0 FL Mean Corpuscular Hemoglobin 28.6 PG Mean Corpuscular Hemoglobin 33.3 % Concent Red Cell Distribution Width 16.9 % Platelet Count 143 TH/MM3 Mean Platelet Volume 10.2 FL Neutrophils (%) (Auto) 64.1 % Lymphocytes (%) (Auto) 25.4 % Monocytes (%) (Auto) 9.1 % Eosinophils (%) (Auto) 1.2 % Basophils (%) (Auto) 0.2 % Neutrophils # (Auto) 2.5 TH/MM3 Lymphocytes # (Auto) 1.0 TH/MM3 Monocytes # (Auto) 0.3 TH/MM3 Eosinophils # (Auto) 0.0 TH/MM3 Basophils # (Auto) 0.0 TH/MM3 CBC Comment DIFF FINAL Differential Comment Sodium Level 139 MEQ/L Potassium Level 3.1 MEQ/L Chloride Level 102 MEQ/L Carbon Dioxide Level 27.4 MEQ/L Anion Gap 10 MEQ/L Blood Urea Nitrogen 13 MG/DL Creatinine 0.86 MG/DL Estimat Glomerular Filtration 68 ML/MIN Rate Random Glucose 95 MG/DL Calcium Level 9.3 MG/DL [facility] Medical Decision Making Medical Screen Exam Complete: Yes Emergency Medical Condition: Yes Interpretation(s) My review of EKG: Normal sinus rhythm at a rate of 84, left bundle branch block , otherwise unremarkable. Compared to previous EKG from 5 days ago there is no significant change. CBC and CMP are unremarkable. Differential Diagnosis Syncope and collapse, adverse effect of prescription medications, dehydration, anemia, other Narrative Course Medical decision making 56-year-old woman, chronic recurrent abdominal pain, on multiple sedating medications, presents after a trip and fall or syncope and collapse, was on the floor for a while. She was just discharged nostril 3 days ago. She is here several times a month with various complaints most related to her chronic recurrent abdominal pain. She looks about normal for her. I saw her walk and she is walking unassisted without any difficulty. I don't see any evidence of significant trauma on her. Recommend screening labs EKG and outpatient follow- up. Diagnosis Primary Impression: Syncope and collapse Patient Instructions: General Instructions Additional Instructions: Reduce her restrict sedating medications. Follow-up with her primary doctor in the next 2-4 days. Return to the emergency department for any new or worsening symptoms. Med/Other Pt SpecificInfo: No Change to Meds Disposition: 01 DISCHARGE HOME Condition: Stable Ranulfo Jerez MD Jul 22, 2016 11:12
[2016-07-22 11:36] LABS: AUTOMATED NEUTROPHIL # 2.5 TH/MM3 (1.8-7.7); BASOPHIL % 0.2 % (0.0-2.0); EOSINOPHIL % 1.2 % (0.0-4.0); HEMATOCRIT 34.8 % (35.0-46.0); HEMO FLAGS DIFF FINAL; LYMPH % 25.4 % (9.0-44.0); MEAN CORPUSCULAR HEMOGLOBIN 28.6 PG (27.0-34.0); MEAN CORPUSCULAR HGB CONC 33.3 % (32.0-36.0); MONO % 9.1 % (0.0-8.0); NEUT % 64.1 % (16.0-70.0); PLATELET COUNT 143 TH/MM3 (150-450); RED BLOOD COUNT 4.05 MIL/MM3 (4.00-5.30); RED CELL DISTRIBUTION WIDTH 16.9 % (11.6-17.2); WHITE BLOOD COUNT 3.8 TH/MM3 (4.0-11.0)
[2016-07-22 11:52] LABS: BICARBONATE 27.4 MEQ/L (21.0-32.0); POTASSIUM 3.1 MEQ/L (3.5-5.1)
--- NOTE | 2016-07-23 11:28 | EKG ---
Date Performed: 07/22/2016 Time Performed: 11:05:10 PTAGE: 56 years EKG: Sinus rhythm LEFT ATRIAL ENLARGEMENT LEFT BUNDLE BRANCH BLOCK ABNORMAL ECG PREVIOUS TRACING : 07/17/2016 12.05 DOCTOR: Ranulfo Cook Interpretating Date/Time 07/23/2016 11:27:22
== END 2016-07-22 13:04 | disposition home or self-care (01) ==
LOC: NETRI 06:07
DX: R55 Syncope and collapse (principal)
CPT/HCPCS: 80048; 85025; 93005

== ENCOUNTER 2016-08-01 06:55 | Emergency (ER) | payer BC ==
[~2016-08-01] VITALS: Ht 157.5 cm; Wt 46.5 kg
[2016-08-01 06:57] VITALS: BP 157/89; PULSE 88; RESP 16; TEMP 98.1; O2SAT 97
[2016-08-01 07:12] VITALS: PULSE 90; RESP 16; O2SAT 95
[2016-08-01 07:30] VITALS: BP 168/99; PULSE 88; RESP 16; O2SAT 98
[2016-08-01] MEDS ORDERED: SODIUM CHLOR 0.9% 1000 ML INJ 1,000 ML IV ONE (07:30)
--- NOTE | 2016-08-01 07:34 | PD ---
HPI Chief Complaint: Abdominal Pain Time Seen by Provider: 07:13 Travel History International Travel<30 days: No Contact w/Intl Traveler<30days: No Traveled to known affect area: No History of Present Illness HPI This is a 56-year-old female who has a history of subtotal gastrectomy, fundoplication with revision, 2 incisional hernia repairs, cholecystectomy and appendectomy who is chronically opiate dependent who presents to the emergency department with abdominal pain that started yesterday as well as dry heaving. She describes her pain is all over her abdomen worse in the epigastrium, constant, aching, associated with multiple episodes of dry heaving. She says she is not able to keep anything down and she feels dehydrated and weak. This is similar to symptoms she's had in the past in the setting of a "flare up" of her chronic abdominal pain. She denies any fevers or chills. She had a loose stool this morning. PFSH Past Medical History Hx Anticoagulant Therapy: No Asthma: No Blood Disorders: No Anxiety: Yes Depression: No Heart Rhythm Problems: No Cancer: Yes (kidney) Cardiovascular Problems: Yes ([place]) High Cholesterol: No Chemotherapy: Yes (KIDNEY ) Chest Pain: No Congestive Heart Failure: No COPD: No Cerebrovascular Accident: Yes Diabetes: No Diminished Hearing: No Endocrine: No Gastrointestinal Disorders: Yes GERD: No Genitourinary: Yes (RIGHT NEPHRECTOMY) Headaches: Yes Hiatal Hernia: Yes Hypertension: No Immune Disorder: No Implanted Vascular Access Dvce: No Kidney Stones: No Musculoskeletal: No Neurologic: No Psychiatric: No Reproductive: No Respiratory: No Immunizations Current: Yes Migraines: Yes Myocardial Infarction: Yes (2005) Pneumonia: Yes Radiation Therapy: No Renal Failure: No Seizures: Yes Sleep Apnea: No Thyroid Disease: No Ulcer: No Tetanus Vaccination: > 5 Years Influenza Vaccination: Yes Menopausal: Yes : 1 Para: 1 Miscarriage: 0 : 0 Ectopic : No Ovarian Cysts: No Dilation and Curettage (D&C): Yes Tubal Ligation: Yes Past Surgical History Abdominal Surgery: Yes (total gastrectomy w/pouch 2002, hernia repair) Appendectomy: Yes Cardiac Surgery: Yes (pt states an occulator was placed in her heart 2005) Cholecystectomy: Yes Gynecologic Surgery: Yes Hysterectomy: Yes Thoracic Surgery: No Tonsillectomy: Yes Other Surgery: Yes (RIGHT NEPHRECTOMY) Social History Alcohol Use: No Tobacco Use: No Substance Use: No Allergies-Medications (Allergen,Severity, Reaction): Coded Allergies: Compazine (Verified Allergy, Severe, SOB, 08/01/16) Gadolinium Derivatives (Verified Allergy, Severe, RESPIRATORY DISTRESS, ) Lobster (Verified Allergy, Severe, Anaphylaxis, 08/01/16) Morphine (Verified Allergy, Severe, Hives, 08/01/16) PT HAVING HIVES AND ITCHING TO ARM ABOVE IV SITE AFTER ADMINISTRATION OF MORPHINE Phenergan (Verified Allergy, Severe, SOB, 08/01/16) Reglan (Verified Allergy, Severe, SOB, 08/01/16) Toradol (Verified Allergy, Severe, Shortness of Breath, 08/01/16) Zofran (Verified Allergy, Severe, SOB, 08/01/16) Penicillin (Verified Allergy, Mild, RASH, 08/01/16) Sulfa (Verified Allergy, Mild, RASH, 08/01/16) *MDRO Multi-Drug Resistant Organism (Verified Adverse Reaction, Unknown, ) 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 06/23/16 VSV Reported Meds & Prescriptions Reported Meds & Active Scripts Active Reported Dilaudid (Hydromorphone HCl) 4 Mg Tab 4 Mg PO Q6H PRN Valium (Diazepam) 10 Mg Tab 10 Mg PO TID Buspirone (Buspirone HCl) 7.5 Mg Tab 7.5 Mg PO BID Zyprexa (Olanzapine) 5 Mg Tab 5 Mg PO BID Cyanocobalamin Inj (Cyanocobalamin) 1,000 Mcg/Ml Inj 1,000 Mcg IM Q30D Imipramine HCL (Imipramine HCl) 25 Mg Tab 25 Mg PO HS Review of Systems Except as stated in HPI: all other systems reviewed are Neg Physical Exam Narrative GENERAL: Frail, no acute distress SKIN: Warm and dry. HEAD: Atraumatic. Normocephalic. EYES: Pupils equal and round. No injection or drainage. ENT: Moist mucous membranes NECK: Trachea midline. CARDIOVASCULAR: Regular rate and rhythm. No murmur appreciated. RESPIRATORY: Clear to auscultation. Breath sounds equal bilaterally. GASTROINTESTINAL: Abdomen soft, diffusely tender to palpation with no rebound or guarding MUSCULOSKELETAL: No obvious deformities. NEUROLOGICAL: Awake and alert. No obvious cranial nerve deficits. Moving all extremities. PSYCHIATRIC: Appropriate mood and affect; insight and judgment normal. Data Data Last Documented VS Vital Signs Date Time Temp Pulse Resp B/P Pulse Ox O2 Delivery O2 Flow Rate FiO2 08/01/16 07:30 88 16 168/99 98 Room Air 08/01/16 06:57 98.1 Orders Complete Blood Count With Diff (08/01/16 07:19) Comprehensive Metabolic Panel (08/01/16 07:19) ^ Insert Iv (08/01/16 07:19) Sodium Chlor 0.9% 1000 Ml Inj (Ns 1000 M (08/01/16 07:30) Haloperidol Inj (Haldol Inj) (08/01/16 08:00) Hydromorphone (Dilaudid) (08/01/16 08:00) Labs Laboratory Tests Test 08/01/16 08:00 White Blood Count 3.1 TH/MM3 Red Blood Count 4.29 MIL/MM3 Hemoglobin 11.9 GM/DL Hematocrit 36.6 % Mean Corpuscular Volume 85.3 FL Mean Corpuscular Hemoglobin 27.7 PG Mean Corpuscular Hemoglobin 32.5 % Concent Red Cell Distribution Width 16.5 % Platelet Count 152 TH/MM3 Mean Platelet Volume 10.2 FL Neutrophils (%) (Auto) 66.7 % Lymphocytes (%) (Auto) 25.1 % Monocytes (%) (Auto) 6.9 % Eosinophils (%) (Auto) 1.2 % Basophils (%) (Auto) 0.1 % Neutrophils # (Auto) 2.1 TH/MM3 Lymphocytes # (Auto) 0.8 TH/MM3 Monocytes # (Auto) 0.2 TH/MM3 Eosinophils # (Auto) 0.0 TH/MM3 Basophils # (Auto) 0.0 TH/MM3 CBC Comment DIFF FINAL Differential Comment Sodium Level 139 MEQ/L Potassium Level 3.2 MEQ/L Chloride Level 103 MEQ/L Carbon Dioxide Level 27.7 MEQ/L Anion Gap 8 MEQ/L Blood Urea Nitrogen 6 MG/DL Creatinine 0.84 MG/DL Estimat Glomerular Filtration 70 ML/MIN Rate Random Glucose 95 MG/DL Calcium Level 9.1 MG/DL Total Bilirubin 0.3 MG/DL Aspartate Amino Transf 24 U/L (AST/SGOT) Alanine Aminotransferase 28 U/L (ALT/SGPT) Alkaline Phosphatase 86 U/L Total Protein 7.0 GM/DL Albumin 3.8 GM/DL MDM Medical Decision Making Medical Screen Exam Complete: Yes Emergency Medical Condition: Yes Interpretation(s) Afebrile, no tachycardia, hypertensive Differential Diagnosis Bowel obstruction, dehydration, electrolyte abnormality, chronic abdominal pain , opiate withdrawal Narrative Course This is a 56-year-old female who is well-known to our emergency department for presentations for chronic abdominal pain. She does have a history of multiple abdominal surgeries and she is chronically dependent on opiates for pain. Her pain management physician prescribes her 150 tablets of 4 mg of hydromorphone a month, and she also uses 25 g per hour fentanyl patch. She was placed on a monitor and IV was established. Labs were obtained to rule out significant dehydration or electrolyte abdomen. Unfortunately this patient has continually shown signs of drug-seeking behavior. She has stated allergies to morphine, Phenergan, Reglan, Toradol and Zofran. She has filled 63 controlled substances prescriptions this year from 14 different providers. She's been seen in our emergency department 39 times in the last year for pain- related complaints. She has had 8 CTs of her abdomen and pelvis in the past year from our emergency department alone. I don't think any further imaging is warranted in this patient. This woman is very unfortunate as opiates are likely not an appropriate therapy for her chronic abdominal pain and, I think many of her symptoms are related to chronic opiate dependence. I discussed this with her again, as I have in the past and urged her to try to engage in a psychiatric detox program. Patient will be discharged home. Diagnosis Primary Impression: Chronic abdominal pain Patient Instructions: General Instructions Additional Instructions: If you develop severe or worsening abdominal pain, fever>100.4, persistent vomiting or inability to eat or drink return to the emergency department immediately. Follow up with your primary care physician in 1-2 days for a check-up. Med/Other Pt SpecificInfo: No Change to Meds Disposition: 01 DISCHARGE HOME Condition: Stable Liila Fields MD Aug 01, 2016 07:34
[2016-08-01] MEDS ORDERED: HYDROmorphone HCL 4 MG TAB PO ONE (08:00)
[2016-08-01] MEDS ORDERED: HALOPERIDOL LACTATE 5 MG/ML AMP IV PUSH ONE (08:00)
[2016-08-01 08:10] LABS: AUTOMATED NEUTROPHIL # 2.1 TH/MM3 (1.8-7.7); BASOPHIL % 0.1 % (0.0-2.0); EOSINOPHIL % 1.2 % (0.0-4.0); HEMATOCRIT 36.6 % (35.0-46.0); HEMO FLAGS DIFF FINAL; LYMPH % 25.1 % (9.0-44.0); LYMPHOCYTE # 0.8 TH/MM3 (1.0-4.8); MEAN CELL VOLUME 85.3 FL (80.0-100.0); MEAN CORPUSCULAR HEMOGLOBIN 27.7 PG (27.0-34.0); MEAN CORPUSCULAR HGB CONC 32.5 % (32.0-36.0); MONO % 6.9 % (0.0-8.0); NEUT % 66.7 % (16.0-70.0); PLATELET COUNT 152 TH/MM3 (150-450); RED BLOOD COUNT 4.29 MIL/MM3 (4.00-5.30); RED CELL DISTRIBUTION WIDTH 16.5 % (11.6-17.2); WHITE BLOOD COUNT 3.1 TH/MM3 (4.0-11.0)
[2016-08-01 08:43] LABS: ALT (GPT) 28 U/L (10-53); ANION GAP 8 MEQ/L (5-15); AST (GOT) 24 U/L (15-37); BICARBONATE 27.7 MEQ/L (21.0-32.0); BLOOD UREA NITROGEN 6 MG/DL (7-18); CHLORIDE 103 MEQ/L (98-107); GLOMERULAR FILTRATION RATE 70 ML/MIN (>89); POTASSIUM 3.2 MEQ/L (3.5-5.1); SODIUM (NA) 139 MEQ/L (136-145)
[2016-08-01 08:45] LABS: ALKALINE PHOSPHATASE 86 U/L (45-117); TOTAL BILIRUBIN ADULT 0.3 MG/DL (0.2-1.0)
[2016-08-01] MEDS ORDERED: POTASSIUM CHLORIDE 10 MEQ CONTROLLED RELEASE TAB PO ONE (09:00)
[2016-08-01 09:30] VITALS: RESP 16
== END 2016-08-01 10:05 | disposition home or self-care (01) ==
LOC: NEPC 06:55
DX: R10.84 Generalized abdominal pain (principal); G89.29 Other chronic pain; R11.0 Nausea; Z87.19 Personal history of other diseases of the digestive system; Z86.59 Personal history of other mental and behavioral disorders; Z85.528 Personal history of other malignant neoplasm of kidney; Z86.79 Personal history of other diseases of the circulatory system; Z86.73 Personal history of transient ischemic attack (TIA), and cerebral infarction without residual deficits; Z87.448 Personal history of other diseases of urinary system; Z86.69 Personal history of other diseases of the nervous system and sense organs; Z87.01 Personal history of pneumonia (recurrent)
CPT/HCPCS: 80053; 85025; 96361; 96374; 99284; J1630; J7030

== ENCOUNTER 2016-08-04 17:41 | Emergency (ER) | payer BC ==
[~2016-08-04] VITALS: Ht 157.5 cm; Wt 45.0 kg
[2016-08-04 17:43] VITALS: BP 180/110; PULSE 91; RESP 18; TEMP 98.2; O2SAT 98
--- NOTE | 2016-08-04 18:33 | PD ---
HPI Chief Complaint: Abdominal Pain Time Seen by Provider: 18:27 Travel History International Travel<30 days: No Contact w/Intl Traveler<30days: No Traveled to known affect area: No History of Present Illness HPI This is a 56 her old female who had a told gastrectomy in 2002 with resultant chronic epigastric abdominal pain. She presents here for evaluation of the same. This is her seventh visit to this emergency department for this issue this month. Most recently she was seen here on August 01. She reports that her current pain has not stopped since her previous visit. She has had continued nausea, vomiting, dry heaves, unable to eat and she is concerned that she is getting dehydrated. She has fentanyl patches as well as oral Dilaudid that she uses for chronic pain but because of the vomiting she has been unable to take her Dilaudid. In addition she is allergic to all routine antiemetics and therefore she is prescribed Valium for nausea but she is unable to take it secondary to the nausea and vomiting. She is concerned that she is getting dehydrated and that her potassium is lower than during her previous visit. She has been unable take her oral potassium supplementation as well. She made an appointment with her production metal sprayer Dr. Hoover but it is not until next week. No other complaints. PFSH Past Medical History Hx Anticoagulant Therapy: No Asthma: No Blood Disorders: No Anxiety: Yes Depression: No Heart Rhythm Problems: No Cancer: Yes (kidney) Cardiovascular Problems: Yes (CT) High Cholesterol: No Chemotherapy: Yes (KIDNEY ) Chest Pain: No Congestive Heart Failure: No COPD: No Cerebrovascular Accident: Yes Diabetes: No Diminished Hearing: No Endocrine: No Gastrointestinal Disorders: Yes GERD: No Genitourinary: Yes (RIGHT NEPHRECTOMY) Headaches: Yes Hiatal Hernia: Yes Hypertension: No Immune Disorder: No Implanted Vascular Access Dvce: No Kidney Stones: No Musculoskeletal: No Neurologic: No Psychiatric: No Reproductive: No Respiratory: No Immunizations Current: Yes Migraines: Yes Myocardial Infarction: Yes (2005) Pneumonia: Yes Radiation Therapy: No Renal Failure: No Seizures: Yes Sleep Apnea: No Thyroid Disease: No Ulcer: No ?: Not Menopausal: Yes : 1 Para: 1 Miscarriage: 0 : 0 Ectopic : No Ovarian Cysts: No Dilation and Curettage (D&C): Yes Tubal Ligation: Yes Past Surgical History Abdominal Surgery: Yes (total gastrectomy w/pouch 2002, hernia repair) Appendectomy: Yes Cardiac Surgery: Yes (pt states an occulator was placed in her heart 2005) Cholecystectomy: Yes Gynecologic Surgery: Yes Hysterectomy: Yes Thoracic Surgery: No Tonsillectomy: Yes Other Surgery: Yes (RIGHT NEPHRECTOMY) Social History Alcohol Use: No Tobacco Use: No Substance Use: No Allergies-Medications (Allergen,Severity, Reaction): Coded Allergies: Compazine (Verified Allergy, Severe, SOB, 08/04/16) Gadolinium Derivatives (Verified Allergy, Severe, RESPIRATORY DISTRESS, ) Lobster (Verified Allergy, Severe, Anaphylaxis, 08/04/16) Morphine (Verified Allergy, Severe, Hives, 08/04/16) PT HAVING HIVES AND ITCHING TO ARM ABOVE IV SITE AFTER ADMINISTRATION OF MORPHINE Phenergan (Verified Allergy, Severe, SOB, 08/04/16) Reglan (Verified Allergy, Severe, SOB, 08/04/16) Toradol (Verified Allergy, Severe, Shortness of Breath, 08/04/16) Zofran (Verified Allergy, Severe, SOB, 08/04/16) Penicillin (Verified Allergy, Mild, RASH, 08/04/16) Sulfa (Verified Allergy, Mild, RASH, 08/04/16) *MDRO Multi-Drug Resistant Organism (Verified Adverse Reaction, Unknown, ) 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 06/23/16 VSV Reported Meds & Prescriptions Reported Meds & Active Scripts Active Reported Dilaudid (Hydromorphone HCl) 4 Mg Tab 4 Mg PO Q6H PRN Valium (Diazepam) 10 Mg Tab 10 Mg PO TID Buspirone (Buspirone HCl) 7.5 Mg Tab 7.5 Mg PO BID Zyprexa (Olanzapine) 5 Mg Tab 5 Mg PO BID Cyanocobalamin Inj (Cyanocobalamin) 1,000 Mcg/Ml Inj 1,000 Mcg IM Q30D Imipramine HCL (Imipramine HCl) 25 Mg Tab 25 Mg PO HS Review of Systems Except as stated in HPI: all other systems reviewed are Neg Physical Exam Narrative GENERAL: Anxious appearing female who is in no acute distress SKIN: Warm and dry. HEAD: Atraumatic. Normocephalic. EYES: Pupils equal and round. No scleral icterus. No injection or drainage. ENT: No nasal bleeding or discharge. Mucous membranes pink and moist. NECK: Trachea midline. No JVD. CARDIOVASCULAR: Regular rate and rhythm. No murmur appreciated. RESPIRATORY: No accessory muscle use. Clear to auscultation. Breath sounds equal bilaterally. GASTROINTESTINAL: Abdomen soft, epigastric tenderness to palpation without guarding. MUSCULOSKELETAL: No obvious deformities. No edema. NEUROLOGICAL: Awake and alert. No obvious cranial nerve deficits. Motor grossly within normal limits. Normal speech. PSYCHIATRIC: Appropriate mood and affect; insight and judgment normal. Data Data Last Documented VS Vital Signs Date Time Temp Pulse Resp B/P Pulse Ox O2 Delivery O2 Flow Rate FiO2 08/04/16 17:43 98.2 91 18 180/110 98 Orders Complete Blood Count With Diff (08/04/16 18:30) Comprehensive Metabolic Panel (08/04/16 18:30) Magnesium (Mg) (08/04/16 18:30) MDM Medical Decision Making Medical Screen Exam Complete: Yes Emergency Medical Condition: Yes Medical Record Reviewed: Yes Differential Diagnosis Acute exacerbation of chronic abdominal pain, dehydration, hypokalemia, gastroenteritis, pancreatitis, AAA Narrative Course 56 year old female with chronic abdominal pain presents for evaluation of acute exacerbation of her chronic abdominal pain. Symptoms have been ongoing for the past 3 days, worsened since her most recent evaluation on the with persistent vomiting and dry heaving. She has been unable to take her regular medication including her Dilaudid, Valium, potassium and she is concerned that she's been coming increasingly dehydrated. It is reasonable to recheck her blood work as she was somewhat hypokalemic during last visit. The patient was initially seen in triage. She'll be moved to a medical bed when one becomes available. Nestor Martinez Aug 04, 2016 18:33
[2016-08-04] MEDS ORDERED: SODIUM CHLOR 0.9% 1000 ML INJ 1,000 ML IV SCH (18:49)
[2016-08-04] MEDS ORDERED: LORazepam 2 MG/ML VIAL IV PUSH ONE (19:00)
[2016-08-04] MEDS ORDERED: HYDROmorphone HCL PF 1 MG/ML VIAL IV PUSH ONE (19:00)
[2016-08-04 19:08] VITALS: BP 156/92; PULSE 65; RESP 15; O2SAT 100; O2SAT 98
[2016-08-04 19:28] LABS: AUTOMATED NEUTROPHIL # 3.7 TH/MM3 (1.8-7.7); BASOPHIL % 0.1 % (0.0-2.0); HEMATOCRIT 41.7 % (35.0-46.0); HEMO FLAGS DIFF FINAL; LYMPH % 15.8 % (9.0-44.0); LYMPHOCYTE # 0.7 TH/MM3 (1.0-4.8); MEAN CELL VOLUME 85.1 FL (80.0-100.0); MEAN CORPUSCULAR HEMOGLOBIN 27.6 PG (27.0-34.0); MEAN CORPUSCULAR HGB CONC 32.4 % (32.0-36.0); MONO % 5.6 % (0.0-8.0); NEUT % 78.5 % (16.0-70.0); PLATELET COUNT 218 TH/MM3 (150-450); RED CELL DISTRIBUTION WIDTH 16.7 % (11.6-17.2); WHITE BLOOD COUNT 4.7 TH/MM3 (4.0-11.0)
--- NOTE | 2016-08-04 19:50 | PD ---
Physical Exam Time Seen by Provider: 19:48 Narrative Patient seen by provider in triage initiated workup, please see his full history of present illness. This is a 56-year-old female with a history of chronic abdominal pain who presents to the emergency department for abdominal pain with nausea and vomiting. Patient has a history of partial gastrectomy in 2002, appendectomy, cholecystectomy, tubal ligation, D&C, right nephrectomy secondary to kidney cancer 10 years ago. She has fentanyl and Dilaudid at home for her chronic abdominal pain. She came in today because she is concerned that her potassium may be low due to vomiting and unable to take her potassium supplements. She is requesting Ativan for her nausea as she has multiple allergies to antiemetics. GENERAL: Well-nourished and well-developed female patient in no acute distress who is nontoxic appearing. SKIN: Warm and dry. HEAD: Normocephalic and atraumatic. EYES: No injection, drainage, or hyphema noted. PERRLA. EOMI. ENT: No nasal drainage noted. Oropharynx is clear. NECK: Supple and the trachea is midline. CARDIOVASCULAR: Regular rate and rhythm. RESPIRATORY: Breath sounds are equal bilaterally with no accessory muscle use, wheezing, rhonchi, or crackles. GASTROINTESTINAL: Mild epigastric tenderness to palpation. Abdomen is soft and nondistended. MUSCULOSKELETAL: No obvious deformities, swelling, cyanosis, or ecchymosis is present throughout the upper and lower extremities. Patient has full range of motion without any signs of neurovascular compromise. NEUROLOGICAL: Awake, alert, and oriented. Normal speech and gait. Cranial nerves are grossly intact. Data Data Last Documented VS Vital Signs Date Time Temp Pulse Resp B/P Pulse Ox O2 Delivery O2 Flow Rate FiO2 08/04/16 19:08 65 15 156/92 100 08/04/16 17:43 98.2 Orders Complete Blood Count With Diff (08/04/16 18:30) Comprehensive Metabolic Panel (08/04/16 18:30) Magnesium (Mg) (08/04/16 18:30) Sodium Chlor 0.9% 1000 Ml Inj (Ns 1000 M (08/04/16 18:49) Lorazepam Inj (Ativan Inj) (08/04/16 19:00) Hydromorphone Pf Inj (Dilaudid Pf Inj) (08/04/16 19:00) Labs Laboratory Tests Test 08/04/16 19:15 White Blood Count 4.7 TH/MM3 Red Blood Count 4.90 MIL/MM3 Hemoglobin 13.5 GM/DL Hematocrit 41.7 % Mean Corpuscular Volume 85.1 FL Mean Corpuscular Hemoglobin 27.6 PG Mean Corpuscular Hemoglobin 32.4 % Concent Red Cell Distribution Width 16.7 % Platelet Count 218 TH/MM3 Mean Platelet Volume 10.4 FL Neutrophils (%) (Auto) 78.5 % Lymphocytes (%) (Auto) 15.8 % Monocytes (%) (Auto) 5.6 % Eosinophils (%) (Auto) 0.0 % Basophils (%) (Auto) 0.1 % Neutrophils # (Auto) 3.7 TH/MM3 Lymphocytes # (Auto) 0.7 TH/MM3 Monocytes # (Auto) 0.3 TH/MM3 Eosinophils # (Auto) 0.0 TH/MM3 Basophils # (Auto) 0.0 TH/MM3 CBC Comment DIFF FINAL Differential Comment Sodium Level 137 MEQ/L Potassium Level 3.5 MEQ/L Chloride Level 100 MEQ/L Carbon Dioxide Level 27.7 MEQ/L Anion Gap 9 MEQ/L Blood Urea Nitrogen 9 MG/DL Creatinine 0.99 MG/DL Estimat Glomerular Filtration 58 ML/MIN Rate Random Glucose 123 MG/DL Calcium Level 9.8 MG/DL Magnesium Level 2.5 MG/DL Total Bilirubin 0.4 MG/DL Aspartate Amino Transf 24 U/L (AST/SGOT) Alanine Aminotransferase 30 U/L (ALT/SGPT) Alkaline Phosphatase 105 U/L Total Protein 8.8 GM/DL Albumin 4.7 GM/DL [facility] Supervised Visit with AGNES: No Differential Diagnosis Chronic abdominal pain versus narcotic dependence versus drug-seeking behavior versus electrolyte abnormality Narrative Course 56-year-old female presents to the emergency department for the seventh time this month for epigastric abdominal pain, nausea and vomiting. Patient is afebrile, vital signs are stable. She has a history of chronic abdominal pain and is dependent on opiates for pain control. She was seen by provider in triage and initiated workup, please see his documentation. CBC is unremarkable. CMP is unremarkable. No evidence of acute infection or dehydration. Labs are all reassuring. Discussed with the patient. She is requesting Ativan for her nausea. Unfortunately this patient has multiple allergies to antiemetics and pain medication. She presents with narcotic seeking behavior. She has pain medication and benzos for antiemetics at home. She is stable for discharge. I discussed the case with my attending physician Dr. Sorto who is aware of the patients history, physical examination findings, and treatment plan. Diagnosis Primary Impression: Chronic abdominal pain Additional Impression: Chronic narcotic dependence Referrals: [facility] Patient Instructions: Chronic Abdominal Pain (ED), General Instructions Additional Instruction: Follow-up with your pain management physician. Return to the ED for any acute worsening of symptoms. Med/Other Pt SpecificInfo: No Change to Meds Disposition: 01 DISCHARGE HOME Condition: Stable Carolin Kirk Aug 04, 2016 19:49
[2016-08-04 20:10] LABS: ALKALINE PHOSPHATASE 105 U/L (45-117); ALT (GPT) 30 U/L (10-53); ANION GAP 9 MEQ/L (5-15); AST (GOT) 24 U/L (15-37); BICARBONATE 27.7 MEQ/L (21.0-32.0); BLOOD UREA NITROGEN 9 MG/DL (7-18); CHLORIDE 100 MEQ/L (98-107); GLOMERULAR FILTRATION RATE 58 ML/MIN (>89); MAGNESIUM 2.5 MG/DL (1.5-2.5); POTASSIUM 3.5 MEQ/L (3.5-5.1); SODIUM (NA) 137 MEQ/L (136-145); TOTAL BILIRUBIN ADULT 0.4 MG/DL (0.2-1.0)
== END 2016-08-04 22:00 | disposition home or self-care (01) ==
LOC: NEPC 17:41
DX: R10.13 Epigastric pain (principal); G89.29 Other chronic pain; F11.20 Opioid dependence, uncomplicated; R11.2 Nausea with vomiting, unspecified
CPT/HCPCS: 80053; 83735; 85025; 96374; 96375; 99284; J1170; J2060; J7030

== ENCOUNTER 2016-08-07 17:54 | Inpatient (IN) | payer BC ==
[~2016-08-07] VITALS: Ht 157.5 cm; Wt 49.1 kg
[2016-08-07 17:57] VITALS: BP 104/58; PULSE 114; RESP 20; O2SAT 92
[2016-08-07 21:07] VITALS: BP 102/59; PULSE 102; RESP 16; O2SAT 98
[2016-08-07] MEDS ORDERED: DICYCLOMINE HCL 20 MG/2 ML VIAL IM ONE (21:15)
--- NOTE | 2016-08-07 21:20 | PD ---
HPI Chief Complaint: Abdominal Pain Time Seen by Provider: 20:42 Travel History International Travel<30 days: No Contact w/Intl Traveler<30days: No Traveled to known affect area: No History of Present Illness HPI 56 years old female complains of abdominal pain with nausea vomiting and diarrhea. Patient has history of recurrent abdominal pain with nausea vomiting. Patient has been to the emergency room multiple times in the past with the same problem. Patient states that she started having diarrhea since last night. Patient denies any blood or mucus is patient denies any headache. Patient denies any chest pain or shortness of breath. Patient states that the abdominal pain is cramping pain diffuse over the abdomen, , is the same pain she has for years. Patient denies any pain radiation. Patient denies any dysuria or frequency. Patient denies any vaginal discharge or bleeding. Patient states that she usually gets Dilaudid and Ativan for the pain. Patient has been seen by liability claims manager for GI problems. PFSH Past Medical History Hx Anticoagulant Therapy: No Asthma: No Blood Disorders: No Anxiety: Yes Depression: No Heart Rhythm Problems: No Cancer: Yes (kidney) Cardiovascular Problems: Yes ([place]) High Cholesterol: No Chemotherapy: Yes (KIDNEY ) Chest Pain: No Congestive Heart Failure: No COPD: No Cerebrovascular Accident: Yes Diabetes: No Diminished Hearing: No Endocrine: No Gastrointestinal Disorders: Yes GERD: No Genitourinary: Yes (RIGHT NEPHRECTOMY) Headaches: Yes Hiatal Hernia: Yes Hypertension: No Immune Disorder: No Implanted Vascular Access Dvce: No Kidney Stones: No Musculoskeletal: No Neurologic: No Psychiatric: No Reproductive: No Respiratory: No Immunizations Current: Yes Migraines: Yes Myocardial Infarction: Yes (2005) Pneumonia: Yes Radiation Therapy: No Renal Failure: No Seizures: Yes Sleep Apnea: No Thyroid Disease: No Ulcer: No Tetanus Vaccination: < 5 Years Influenza Vaccination: Yes Menopausal: Yes : 1 Para: 1 Miscarriage: 0 : 0 Ectopic : No Ovarian Cysts: No Dilation and Curettage (D&C): Yes Tubal Ligation: Yes Past Surgical History Abdominal Surgery: Yes (total gastrectomy w/pouch 2002, hernia repair) Appendectomy: Yes Cardiac Surgery: Yes (pt states an occulator was placed in her heart 2005) Cholecystectomy: Yes Gynecologic Surgery: Yes Hysterectomy: Yes Thoracic Surgery: No Tonsillectomy: Yes Other Surgery: Yes (RIGHT NEPHRECTOMY) Social History Alcohol Use: No Tobacco Use: No Substance Use: No Allergies-Medications (Allergen,Severity, Reaction): Coded Allergies: Compazine (Verified Allergy, Severe, SOB, 08/07/16) Gadolinium Derivatives (Verified Allergy, Severe, RESPIRATORY DISTRESS, 08/07/16) Lobster (Verified Allergy, Severe, Anaphylaxis, 08/07/16) Morphine (Verified Allergy, Severe, Hives, 08/07/16) PT HAVING HIVES AND ITCHING TO ARM ABOVE IV SITE AFTER ADMINISTRATION OF MORPHINE Phenergan (Verified Allergy, Severe, SOB, 08/07/16) Reglan (Verified Allergy, Severe, SOB, 08/07/16) Toradol (Verified Allergy, Severe, Shortness of Breath, 08/07/16) Zofran (Verified Allergy, Severe, SOB, 08/07/16) Penicillin (Verified Allergy, Mild, RASH, 08/07/16) Sulfa (Verified Allergy, Mild, RASH, 08/07/16) *MDRO Multi-Drug Resistant Organism (Verified Adverse Reaction, Unknown, ) 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 06/23/16 VSV Reported Meds & Prescriptions Reported Meds & Active Scripts Active Reported Dilaudid (Hydromorphone HCl) 4 Mg Tab 4 Mg PO Q6H PRN Valium (Diazepam) 10 Mg Tab 10 Mg PO TID Buspirone (Buspirone HCl) 7.5 Mg Tab 7.5 Mg PO BID Zyprexa (Olanzapine) 5 Mg Tab 5 Mg PO BID Cyanocobalamin Inj (Cyanocobalamin) 1,000 Mcg/Ml Inj 1,000 Mcg IM Q30D Imipramine HCL (Imipramine HCl) 25 Mg Tab 25 Mg PO HS Review of Systems General / Constitutional: No: Fever Eyes: No: Visual changes HENT: No: Headaches Cardiovascular: No: Chest Pain or Discomfort Respiratory: No: Shortness of Breath Gastrointestinal: Positive: Nausea, Vomiting, Diarrhea, Abdominal Pain Genitourinary: No: Dysuria Musculoskeletal: No: Pain Skin: No Rash Neurologic: No: Weakness Psychiatric: No: Depression Endocrine: No: Polydipsia Hematologic/Lymphatic: No: Easy Bruising Physical Exam Narrative GENERAL: Well-nourished, well-developed patient. SKIN: Warm and dry. HEAD: Normocephalic. EYES: No scleral icterus. No injection or drainage. NECK: Supple, trachea midline. No JVD or lymphadenopathy. CARDIOVASCULAR: Regular rate and rhythm without murmurs, gallops, or rubs. RESPIRATORY: Breath sounds equal bilaterally. No accessory muscle use. GASTROINTESTINAL: Abdomen soft, nondistended. Patient has mild diffuse tenderness over the abdomen. No rebound tenderness. No mass. MUSCULOSKELETAL: No cyanosis, or edema. BACK: Nontender without obvious deformity. No CVA tenderness. Neurologic exam normal. Data Data Last Documented VS Vital Signs Date Time Temp Pulse Resp B/P Pulse Ox O2 Delivery O2 Flow Rate FiO2 08/07/16 21:07 102 16 102/59 98 Room Air Orders Complete Blood Count With Diff (08/07/16 21:07) Basic Metabolic Panel (Bmp) (08/07/16 21:07) Dicyclomine Inj (Bentyl Inj) (08/07/16 21:15) Hydroxyzine Hcl Inj (Vistaril Inj) (08/07/16 21:15) Comprehensive Metabolic Panel (08/07/16 22:52) Lipase (08/07/16 22:52) Prothrombin Time / Inr (Pt) (08/07/16 22:52) Act Partial Throm Time (Ptt) (08/07/16 22:52) Urinalysis - C+S If Indicated (08/07/16 22:52) Iv Access Insert/Monitor (08/07/16 22:52) Ecg Monitoring (08/07/16 22:52) Oximetry (08/07/16 22:52) Pantoprazole Inj (Protonix Inj) (08/07/16 23:00) Sodium Chlor 0.9% 1000 Ml Inj (Ns 1000 M (08/07/16 22:52) Potassium Chloride (Kcl) (08/07/16 23:00) Potassium Chlor 20 Meq Premix (Kcl 20 Me (08/07/16 23:00) Electrocardiogram (08/07/16 ) Admit Order (Ed Use Only) (08/07/16 22:56) Labs Laboratory Tests Test 08/07/16 21:10 White Blood Count 13.2 TH/MM3 Red Blood Count 4.65 MIL/MM3 Hemoglobin 12.7 GM/DL Hematocrit 40.2 % Mean Corpuscular Volume 86.5 FL Mean Corpuscular Hemoglobin 27.3 PG Mean Corpuscular Hemoglobin 31.6 % Concent Red Cell Distribution Width 16.3 % Platelet Count 206 TH/MM3 Mean Platelet Volume 10.4 FL Neutrophils (%) (Auto) 84.0 % Lymphocytes (%) (Auto) 11.5 % Monocytes (%) (Auto) 3.9 % Eosinophils (%) (Auto) 0.4 % Basophils (%) (Auto) 0.2 % Neutrophils # (Auto) 11.1 TH/MM3 Lymphocytes # (Auto) 1.5 TH/MM3 Monocytes # (Auto) 0.5 TH/MM3 Eosinophils # (Auto) 0.1 TH/MM3 Basophils # (Auto) 0.0 TH/MM3 CBC Comment DIFF FINAL Differential Comment Sodium Level 139 MEQ/L Potassium Level 2.3 MEQ/L Chloride Level 107 MEQ/L Carbon Dioxide Level 17.6 MEQ/L Anion Gap 14 MEQ/L Blood Urea Nitrogen 20 MG/DL Creatinine 1.30 MG/DL Estimat Glomerular Filtration 42 ML/MIN Rate Random Glucose 137 MG/DL Calcium Level 8.9 MG/DL [facility] Medical Decision Making Medical Screen Exam Complete: Yes Emergency Medical Condition: Yes Interpretation(s) 22:43 PM. CBC WBC 13.2. 84 neutrophil. Potassium 2.3. BUN 20. Creatinine 1.3. 23:20 PM. EKG shows sinus rhythm with left bundle-branch block. Unchanged from previous EKG. Differential Diagnosis Differential diagnosis including chronic pain, gastritis, PUD, pancreatitis, cholecystitis, colitis, UTI, pyelonephritis, dehydration Narrative Course 56 years old female with recurrent abdominal pain and nausea vomiting. Patient states the diarrhea is new. Bentyl 20 mg IM. Vistaril 25 mg IM. Normal saline solution 1 L IV bolus. Protonix 40 mg IV. KCl 20 mEq IV given. KCl 40 mEq by mouth given. Diagnosis Primary Impression: Hypokalemia Additional Impressions: Dehydration Chronic abdominal pain Gastroenteritis Edmar Georges MD Aug 07, 2016 21:20
[2016-08-07 21:56] LABS: AUTOMATED NEUTROPHIL # 11.1 TH/MM3 (1.8-7.7); BASOPHIL % 0.2 % (0.0-2.0); EOSINOPHIL # 0.1 TH/MM3 (0-0.4); EOSINOPHIL % 0.4 % (0.0-4.0); HEMATOCRIT 40.2 % (35.0-46.0); HEMO FLAGS DIFF FINAL; LYMPH % 11.5 % (9.0-44.0); LYMPHOCYTE # 1.5 TH/MM3 (1.0-4.8); MEAN CELL VOLUME 86.5 FL (80.0-100.0); MEAN CORPUSCULAR HEMOGLOBIN 27.3 PG (27.0-34.0); MEAN CORPUSCULAR HGB CONC 31.6 % (32.0-36.0); MONO % 3.9 % (0.0-8.0); PLATELET COUNT 206 TH/MM3 (150-450); RED BLOOD COUNT 4.65 MIL/MM3 (4.00-5.30); RED CELL DISTRIBUTION WIDTH 16.3 % (11.6-17.2); WHITE BLOOD COUNT 13.2 TH/MM3 (4.0-11.0)
[2016-08-07 22:20] LABS: BICARBONATE 17.6 MEQ/L (21.0-32.0)
[2016-08-07 22:24] LABS: POTASSIUM 2.3 MEQ/L (3.5-5.1)
[2016-08-07] MEDS ORDERED: SODIUM CHLOR 0.9% 1000 ML INJ 1,000 ML IV SCH ×2 (22:52→22:56)
[2016-08-07] MEDS ORDERED: SODIUM CHLORIDE 0.9% FLUSH 5 ML FLUSH FLUSH PRN (23:00)
[2016-08-07] MEDS ORDERED: BISACODYL 10 MG SUPP PR PRN (23:00)
[2016-08-07] MEDS ORDERED: ACETAMINOPHEN 325 MG TAB PO PRN (23:00)
[2016-08-07] MEDS ORDERED: POTASSIUM CHLOR 20 MEQ PREMIX 100 ML IV ONE (23:00)
[2016-08-07] MEDS ORDERED: POTASSIUM CHLORIDE 20 MEQ CONTROLLED RELEASE TAB PO ONE (23:00)
[2016-08-07] MEDS ORDERED: PANTOPRAZOLE SODIUM 40 MG VIAL IVP ONE (23:00)
--- NOTE | 2016-08-07 23:00 | HHI.HP ---
[facility] Primary Care Physician Clotilde Gamez M.D. Admission Diagnosis hypokalemia. Dehydration. Abdominal pain. Diagnoses: Travel History International Travel<30 Days: No Contact w/Intl Traveler <30 Da: No Traveled to Known Affected Are: No Past Family Social History Allergies: Coded Allergies: Compazine (Verified Allergy, Severe, SOB, 08/07/16) Gadolinium Derivatives (Verified Allergy, Severe, RESPIRATORY DISTRESS, 08/07/16) Lobster (Verified Allergy, Severe, Anaphylaxis, 08/07/16) Morphine (Verified Allergy, Severe, Hives, 08/07/16) PT HAVING HIVES AND ITCHING TO ARM ABOVE IV SITE AFTER ADMINISTRATION OF MORPHINE Phenergan (Verified Allergy, Severe, SOB, 08/07/16) Reglan (Verified Allergy, Severe, SOB, 08/07/16) Toradol (Verified Allergy, Severe, Shortness of Breath, 08/07/16) Zofran (Verified Allergy, Severe, SOB, 08/07/16) Penicillin (Verified Allergy, Mild, RASH, 08/07/16) Sulfa (Verified Allergy, Mild, RASH, 08/07/16) *MDRO Multi-Drug Resistant Organism (Verified Adverse Reaction, Unknown, ) 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 06/23/16 VSV Physical Exam Vital Signs Vital Signs Date Time Temp Pulse Resp B/P Pulse Ox O2 Delivery O2 Flow Rate FiO2 08/07/16 21:07 102 16 102/59 98 Room Air 08/07/16 17:57 114 20 104/58 92 Room Air Physical Exam GENERAL: This is a well-nourished, well-developed patient, in no apparent distress. SKIN: No rashes, ecchymoses or lesions. Cool and dry. HEAD: Atraumatic. Normocephalic. No temporal or scalp tenderness. EYES: Pupils equal round and reactive. Extraocular motions intact. No scleral icterus. No injection or drainage. ENT: Nose without bleeding, purulent drainage or septal hematoma. Throat without erythema, tonsillar hypertrophy or exudate. Uvula midline. Airway patent. NECK: Trachea midline. No JVD or lymphadenopathy. Supple, nontender, no meningeal signs. CARDIOVASCULAR: Regular rate and rhythm without murmurs, gallops, or rubs. RESPIRATORY: Clear to auscultation. Breath sounds equal bilaterally. No wheezes , rales, or rhonchi. GASTROINTESTINAL: Abdomen soft, non-tender, nondistended. No hepato-splenomegaly , or palpable masses. No guarding. MUSCULOSKELETAL: Extremities without clubbing, cyanosis, or edema. No joint tenderness, effusion, or edema noted. No calf tenderness. Negative Homans sign bilaterally. NEUROLOGICAL: Awake and alert. Cranial nerves II through XII intact. Motor and sensory grossly within normal limits. Five out of 5 muscle strength in all muscle groups. Normal speech. Laboratory Laboratory Tests Test 08/07/16 21:10 White Blood Count 13.2 Red Blood Count 4.65 Hemoglobin 12.7 Hematocrit 40.2 Mean Corpuscular Volume 86.5 Mean Corpuscular Hemoglobin 27.3 Mean Corpuscular Hemoglobin 31.6 Concent Red Cell Distribution Width 16.3 Platelet Count 206 Mean Platelet Volume 10.4 Neutrophils (%) (Auto) 84.0 Lymphocytes (%) (Auto) 11.5 Monocytes (%) (Auto) 3.9 Eosinophils (%) (Auto) 0.4 Basophils (%) (Auto) 0.2 Neutrophils # (Auto) 11.1 Lymphocytes # (Auto) 1.5 Monocytes # (Auto) 0.5 Eosinophils # (Auto) 0.1 Basophils # (Auto) 0.0 CBC Comment DIFF FINAL Differential Comment Sodium Level 139 Potassium Level 2.3 Chloride Level 107 Carbon Dioxide Level 17.6 Anion Gap 14 Blood Urea Nitrogen 20 Creatinine 1.30 Estimat Glomerular Filtration 42 Rate Random Glucose 137 Calcium Level 8.9 Result Diagram: 08/07/16210908/07/162109 Physician Certification Order for Inpatient Services The services are ordered in accordance with Medicare regulations or non- Medicare payer requirements, as applicable. In the case of services not specified as inpatient-only, they are appropriately provided as inpatient services in accordance with the 2-midnight benchmark. days is the estimated time the patient will need to remain in the hospital, assuming treatment plan goals are met and no additional complications. Claudia Mcgovern MD Aug 07, 2016 23:00
[2016-08-07 23:19] VITALS: RESP 16
[2016-08-07] MEDS: HYDROmorphone HCL PF 1 MG/ML VIAL IV PUSH PRN (23:34)
[2016-08-08] VITALS (8 sets, daily range): BP systolic 80–118; BP diastolic 50–68; PULSE 66–78; RESP 18–20; TEMP 97.4–97.9; O2SAT 96–100
[2016-08-08] MEDS ORDERED: HYDROmorphone HCL PF 1 MG/ML VIAL IV PUSH PRN
[2016-08-08 00:07] LABS: APTT (PATIENT) 25.4 SEC (24.3-30.1); PROTHROMBIN TIME - PATIENT 11.6 SEC (9.8-11.6)
[2016-08-08 00:23] LABS: ALKALINE PHOSPHATASE 88 U/L (45-117); ALT (GPT) 23 U/L (10-53); ANION GAP 17 MEQ/L (5-15); AST (GOT) 11 U/L (15-37); BICARBONATE 17.2 MEQ/L (21.0-32.0); BLOOD UREA NITROGEN 22 MG/DL (7-18); CHLORIDE 107 MEQ/L (98-107); GLOMERULAR FILTRATION RATE 44 ML/MIN (>89); SODIUM (NA) 141 MEQ/L (136-145); TOTAL BILIRUBIN ADULT 0.4 MG/DL (0.2-1.0)
[2016-08-08 00:33] LABS: POTASSIUM 2.3 MEQ/L (3.5-5.1)
[2016-08-08] MEDS: POTASSIUM CHLOR 10 MEQ PREMIX 100 ML IV SCH ×3 (01:40→05:50)
[2016-08-08] MEDS: ERYTHROMYCIN INJ 250 MG in SODIUM CHLORIDE 0.9% INJ 100 ML IV SCH ×4 (01:54→17:44)
[2016-08-08] MEDS: D5-1/2 NS + KCL 10 MEQ INJ 1,000 ML IV SCH ×2 (01:54→21:02)
[2016-08-08] MEDS: FAMOTIDINE 20 MG/2 ML VIAL IV PUSH SCH ×2 (01:55→12:59)
[2016-08-08] MEDS: HYDROmorphone HCL PF 1 MG/ML VIAL IV PUSH PRN ×4 (06:33→21:03)
[2016-08-08] MEDS: TRIMETHOBENZAMIDE INJ 200 MG/2 ML VIAL IM PRN (07:04)
[2016-08-08] MEDS ORDERED: SODIUM CHLORIDE 0.9% FLUSH 5 ML FLUSH FLUSH SCH (09:00)
[2016-08-08] MEDS: OLANZapine 5 MG TAB PO SCH ×2 (09:28→20:59)
[2016-08-08] MEDS: busPIRone HCL 5 MG TAB PO SCH ×2 (09:28→20:58)
[2016-08-08] MEDS: DIAZEPAM 10 MG TAB PO SCH ×3 (09:28→17:44)
--- NOTE | 2016-08-08 12:00 | MH ---
DATE OF ADMISSION: 08/07/2016 DATE OF : [address] Tito Scales. ATTENDING PHYSICIAN Dr. Carmen Jo. CHIEF COMPLAINT: Nausea, diarrhea, abdominal pain. HISTORY OF PRESENT ILLNESS The patient is a 56-year-old female who presented to the ER with complaints of abdominal pain with nausea, vomiting and diarrhea. The patient has a history of recurrent and chronic abdominal pain with nausea and vomiting. The patient has been to the emergency room multiple times in the past with the same problem. The patient states that he started having diarrhea since last night. Denies any blood or mucus, denies any chest pain, shortness of breath or headache, denies any fever. Does complain of diffuse abdominal pain which is cramping in nature and per patient it has not worsened, it has been there for a long time. The patient denies any radiation, denies any dysuria or frequency. Denies any vaginal discharge or bleeding. Per patient she usually gets Dilaudid and Ativan for the pain. The patient is being followed by a [facility] specialist for GI problems and her [facility] specialist is Dr. Hoover and per patient she has an appointment next week. PAST MEDICAL HISTORY 1. Anxiety. 2. History of kidney cancer, status post nephrectomy. 3. History of [place] in 2005. 4. History of tubal ligation in the past. PAST SURGICAL HISTORY 1. Total gastrectomy with pouch in 2002. 2. Hernia repair. 3. The patient states she had an occulator placed in her heart in 2005. 4. History of cholecystectomy. 5. History of hysterectomy. 6. History of right nephrectomy. SOCIAL HISTORY No alcohol, tobacco or substance use. ALLERGIES COMPAZINE, GADOLINIUM, LOBSTER, MORPHINE, PHENERGAN, REGLAN, TORADOL, ZOFRAN, PENICILLIN, SULFA. MEDICATION Active reported medications: 1. Dilaudid. 2. Valium. 3. Buspirone. 4. Zyprexa. 5. Cyanocobalamin injections. 6. Imipramine. REVIEW OF SYSTEMS Denies any fever. EYES: Denies any visual changes. HEENT: Denies any headaches. CARDIOVASCULAR: Denies any chest pain or discomfort. RESPIRATORY: Denies any shortness of breath. GASTROINTESTINAL: Positive for nausea, vomiting, diarrhea and abdominal pain. GENITOURINARY: Denies any dysuria. MUSCULOSKELETAL: Denies any arthralgias. SKIN: No rash. NEUROLOGIC: No focal deficit. PSYCHIATRIC: No depression. ENDOCRINE: No polydipsia. HEMATOLOGIC/LYMPHATIC: No easy bruising. PHYSICAL EXAMINATION GENERAL: The patient is well-nourished, well-developed, in no acute distress. SKIN: Warm and dry. HEAD: Normocephalic. EYES: No scleral icterus. No injection or drainage. NECK: Supple. Trachea midline. No JVD or lymphadenopathy. CARDIOVASCULAR: Regular rate and rhythm without murmurs, gallops or rubs. RESPIRATORY: Breath sounds are equal bilaterally. No accessory muscle use. GASTROINTESTINAL: Abdomen is soft, nondistended. Mild diffuse tenderness over the abdomen. No rebound or guarding. No rigidity. No mass. MUSCULOSKELETAL: No cyanosis or edema. BACK: Nontender without obvious deformity. CVA tenderness. NEUROLOGIC: Cranial nerves II-XII grossly intact. No focal deficit. PSYCHIATRIC: Anxious. No suicidal ideation or homicidal intension. VITAL SIGNS: Blood pressure is 102/59, pulse ox is 98 on room air. Pulse is 102. Temperature is 97.5. LABORATORY DATA WBC is 13.2, hemoglobin 12.7, hematocrit 40.2, platelets 206,000, potassium is 2.3, sodium 139, calcium 8.9. DIAGNOSTIC IMPRESSION 1. Hypokalemia. 2. Dehydration. 3. Chronic abdominal pain. 4. Gastroenteritis. 5. Generalized anxiety disorder. 6. History of nephrectomy. 7. History of [place]. PLAN Will admit the patient. Will start the patient on IV fluids, normal saline at 125 cc per hour. The patient has received 60 meq of potassium. Will monitor the potassium closely. Will start the patient on Bentyl 20 mg IM. Will start the patient on Protonix 40 mg IV. Will consult [facility] specialist for a complete GI workup. Will monitor the CBC and the BMP. Continue the home medications as appropriate. DVT prophylaxis with SCDs. GI prophylaxis with PPI. Continue home medications as appropriate. Further management depends on hospital course. Will monitor patient closely during hospital stay. Patient is acutely ill with acute dehydration and severe hypokalemia, will need replacement and monitoring. Will need a complete GI workup. Will need inpatient stay of minimum three midnights. Anticipate discharge to home when the patient is stable. Tito Scales [facility]
[2016-08-08 13:08] LABS: BICARBONATE 23.9 MEQ/L (21.0-32.0); POTASSIUM 4.2 MEQ/L (3.5-5.1)
[2016-08-08 16:01] LABS: HEMATOCRIT 39.1 % (35.0-46.0); MEAN CELL VOLUME 87.7 FL (80.0-100.0); MEAN CORPUSCULAR HEMOGLOBIN 28.4 PG (27.0-34.0); MEAN CORPUSCULAR HGB CONC 32.4 % (32.0-36.0); PLATELET COUNT 135 TH/MM3 (150-450); RED BLOOD COUNT 4.46 MIL/MM3 (4.00-5.30); RED CELL DISTRIBUTION WIDTH 16.6 % (11.6-17.2); REVIEW FLAG FINAL; WHITE BLOOD COUNT 3.9 TH/MM3 (4.0-11.0)
--- NOTE | 2016-08-08 19:39 | EKG ---
Date Performed: 08/07/2016 Time Performed: 23:15:52 PTAGE: 56 years EKG: Sinus rhythm LEFT BUNDLE BRANCH BLOCK Since previous tracing, no significant change noted ABNORMAL ECG PREVIOUS TRACING : 08/07/2016 23.15 DOCTOR: Negrito Alves Interpretating Date/Time 08/08/2016 19:39:16
[2016-08-08] MEDS: IMIPRAMINE HCL 25 MG TAB PO SCH (20:59)
[2016-08-09] VITALS (7 sets, daily range): BP systolic 100–116; BP diastolic 59–64; PULSE 71–85; RESP 15–18; TEMP 97.4–98.4; O2SAT 97–100
[2016-08-09] MEDS: ERYTHROMYCIN INJ 250 MG in SODIUM CHLORIDE 0.9% INJ 100 ML IV SCH ×4 (00:42→18:17)
[2016-08-09] MEDS: FAMOTIDINE 20 MG/2 ML VIAL IV PUSH SCH ×2 (00:42→11:59)
[2016-08-09] MEDS: D5-1/2 NS + KCL 10 MEQ INJ 1,000 ML IV SCH ×2 (00:42→09:16)
[2016-08-09] MEDS: HYDROmorphone HCL PF 1 MG/ML VIAL IV PUSH PRN ×6 (02:30→22:24)
[2016-08-09] MEDS: DIAZEPAM 10 MG TAB PO SCH ×3 (09:13→18:18)
[2016-08-09] MEDS: busPIRone HCL 5 MG TAB PO SCH ×2 (09:13→20:20)
[2016-08-09] MEDS: OLANZapine 5 MG TAB PO SCH ×2 (09:14→20:20)
[2016-08-09 09:16] LABS: POTASSIUM 5.9 MEQ/L (3.5-5.1)
[2016-08-09 09:23] LABS: AUTOMATED NEUTROPHIL # 2.3 TH/MM3 (1.8-7.7); BASOPHIL % 0.1 % (0.0-2.0); EOSINOPHIL # 0.1 TH/MM3 (0-0.4); EOSINOPHIL % 2.8 % (0.0-4.0); HEMATOCRIT 31.4 % (35.0-46.0); HEMO FLAGS DIFF FINAL; LYMPH % 29.3 % (9.0-44.0); LYMPHOCYTE # 1.2 TH/MM3 (1.0-4.8); MEAN CORPUSCULAR HEMOGLOBIN 27.9 PG (27.0-34.0); MEAN CORPUSCULAR HGB CONC 33.2 % (32.0-36.0); MONO % 9.1 % (0.0-8.0); NEUT % 58.7 % (16.0-70.0); PLATELET COUNT 124 TH/MM3 (150-450); RED BLOOD COUNT 3.74 MIL/MM3 (4.00-5.30); RED CELL DISTRIBUTION WIDTH 16.2 % (11.6-17.2)
--- NOTE | 2016-08-09 11:01 | PD.CONS ---
HPI History of Present Illness This is a 56 year old female with chronic abdominal pain and nausea. She is well-known to our service and has had multiple hospitalizations and undergone extensive testing with EGD/Colonoscopy, CT scans, Xrays, MRI, GES. She was recently found to have gastroparesis with good response to EES. Unfortunately she has multiple drug allergies and continues to take schedule narcotics for her chronic abdominal pain. The patient takes Dilaudid 4 mg by mouth every 4 hours at home as well as Valium 3 times a day for her nausea. She reports that she is allergic to Phenergan, Zofran, Compazine and has difficulty breathing if she receives these meds and therefore the only medication she can take for her nausea is Valium. Discussed with patient that her chronic dilated use is likely contributing to her gastroparesis and aggravating her abdominal pain. She became somewhat upset and reports that if we take away her dialogue it she will not eat and that it is the only thing that helps her with her appetite and her abdominal pain. She is unwilling to stop this. She reports that since her last hospitalization, her symptoms only mildly improved. She continues to have constant abdominal pain that she describes as a severe dull ache in her epigastric area that radiates straight through to her back. She has associated nausea and dry heaving. She denies any heartburn. She does report chills with no fever. She reports that she had a small bowel movement last night. She occasionally sees blood in her stool but states she hasn't seen this in quite some time. She was last evaluated with an EGD/colonoscopy (11/22/15) and this revealed status post gastric bypass, biopsy of gastric polyp, diverticulosis in the sigmoid and descending colon, retroflex views revealed small internal hemorrhoids, external hemorrhoids. Pathology revealed mild chronic gastritis, negative for helicobacter pylori. On admission she had mild leukocytosis with a WBC of 13.2. This is since normalized. Her hemoglobin is stable. Her lipase and LFTs are within normal limits. (Nalini Willett) PFSH Past Medical History ? Pancreatitis once about 2 years ago Kidney cancer, S/P Right nephrectomy AK/CAD, undetected PFO Double embolic CVA, coma 7 days GERD Aspiration pneumonia Ileus Gastric polyp Chronic abdominal pain Gastroparesis Past Surgical History Fundoplication x 2 Subtotal gastrectomy G tube placement Incisional hernia repair x 2 EGD/Colonoscopy Cardiac catheterization Tonsillectomy Appendectomy Cholecystectomy Tubal ligation (Nalini Willett) Coded Allergies: Compazine (Verified Allergy, Severe, SOB, 08/07/16) Gadolinium Derivatives (Verified Allergy, Severe, RESPIRATORY DISTRESS, 08/07/16) Lobster (Verified Allergy, Severe, Anaphylaxis, 08/07/16) Morphine (Verified Allergy, Severe, Hives, 08/07/16) PT HAVING HIVES AND ITCHING TO ARM ABOVE IV SITE AFTER ADMINISTRATION OF MORPHINE Phenergan (Verified Allergy, Severe, SOB, 08/07/16) Reglan (Verified Allergy, Severe, SOB, 08/07/16) Toradol (Verified Allergy, Severe, Shortness of Breath, 08/07/16) Zofran (Verified Allergy, Severe, SOB, 08/07/16) Penicillin (Verified Allergy, Mild, RASH, 08/07/16) Sulfa (Verified Allergy, Mild, RASH, 08/07/16) *MDRO Multi-Drug Resistant Organism (Verified Adverse Reaction, Unknown, ) 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 06/23/16 [facility] Medications Allergies Coded Allergies Type Severity Reaction Last Updated Verified Compazine Allergy Severe SOB 08/07/16 Yes Gadolinium Derivatives Allergy Severe RESPIRATORY DISTRESS 08/07/16 Yes Lobster Allergy Severe Anaphylaxis 08/07/16 Yes Morphine Allergy Severe Hives 08/07/16 Yes Phenergan Allergy Severe SOB 08/07/16 Yes Reglan Allergy Severe SOB 08/07/16 Yes Toradol Allergy Severe Shortness of Breath 08/07/16 Yes Zofran Allergy Severe SOB 08/07/16 Yes Penicillin Allergy Mild RASH 08/07/16 Yes Sulfa Allergy Mild RASH 08/07/16 Yes *MDRO Multi-Drug Resistant Organism Adverse Reaction Unknown 08/07/16 Yes Uncoded Allergies Type Severity Reaction Last Updated Verified GADOLINIUM Adverse Reaction Severe PT STOPPED BREATHING WITH GADO 06/23/16 Active Scripts Medications Dose Route/Sig Days Date Category Dilaudid (Hydromorphone HCl) 4 Mg Tab 4 Mg PO Q6H PRN 2/9/17 Reported Valium (Diazepam) 10 Mg Tab 10 Mg PO TID 07/16/16 Reported Buspirone (Buspirone HCl) 7.5 Mg Tab 7.5 Mg PO BID 06/04/16 Reported Zyprexa (Olanzapine) 5 Mg Tab 5 Mg PO BID 04/05/16 Reported Cyanocobalamin Inj (Cyanocobalamin) 1,000 Mcg/Ml Inj 1,000 Mcg IM Q30D 04/05/16 Reported Imipramine HCL (Imipramine HCl) 25 Mg Tab 25 Mg PO HS 04/05/16 Reported Family History Both parents had COPD, Mother also had MS. Social History No tobacco. No ETOH No illicit drug use (Nalini Willett) Review of Systems Constitutional: COMPLAINS OF: Fatigue, Weight loss, Chills, Change in appetite , DENIES: Fever Respiratory: DENIES: Cough Cardiovascular: DENIES: Chest pain Gastrointestinal: COMPLAINS OF: Abdominal pain, Nausea, Vomiting, Anorexia, DENIES: Constipation, Diarrhea, Swelling of Abdomen, Heartburn Musculoskeletal: COMPLAINS OF: Back pain, DENIES: Joint pain Hematologic/lymphatic: DENIES: Bruising Psychiatric: COMPLAINS OF: Anxiety, DENIES: Confusion (Nalini Willett) GI Exam Vitals I&O Vital Signs Date Time Temp Pulse Resp B/P Pulse Ox O2 Delivery O2 Flow Rate FiO2 08/09/16 08:30 Room Air 08/09/16 08:00 98.4 76 16 114/59 100 08/09/16 04:00 98.1 73 18 116/62 99 08/09/16 00:00 97.4 75 18 111/62 98 08/08/16 20:24 68 08/08/16 20:00 97.4 69 18 97/53 99 08/08/16 19:45 Room Air 08/08/16 16:00 97.9 69 20 90/56 96 08/08/16 12:00 97.6 66 20 80/50 100 I/O 08/08/16 08/08/16 08/08/16 08/09/16 08/09/16 08/09/16 07:00 15:00 23:00 07:00 15:00 23:00 Intake Total 1240 ml 1100 ml Balance 1240 ml 1100 ml Intake Oral 240 ml 100 ml IV Total 1000 ml 1000 ml # Voids 1 2 # Bowel Movements 0 Imaging Laboratory Test 08/08/16 08/08/16 08/09/16 12:32 15:21 08:04 Sodium Level 140 MEQ/L 140 MEQ/L Potassium Level 4.2 MEQ/L 5.9 MEQ/L Chloride Level 105 MEQ/L 106 MEQ/L Carbon Dioxide Level 23.9 MEQ/L 23.0 MEQ/L Anion Gap 11 MEQ/L 11 MEQ/L Blood Urea Nitrogen 17 MG/DL 9 MG/DL Creatinine 1.04 MG/DL 0.84 MG/DL Estimat Glomerular Filtration 55 ML/MIN 70 ML/MIN Rate Random Glucose 95 MG/DL 91 MG/DL Calcium Level 8.4 MG/DL 7.9 MG/DL White Blood Count 3.9 TH/MM3 4.0 TH/MM3 Red Blood Count 4.46 MIL/MM3 3.74 MIL/MM3 Hemoglobin 12.7 GM/DL 10.4 GM/DL Hematocrit 39.1 % 31.4 % Mean Corpuscular Volume 87.7 FL 84.0 FL Mean Corpuscular Hemoglobin 28.4 PG 27.9 PG Mean Corpuscular Hemoglobin 32.4 % 33.2 % Concent Red Cell Distribution Width 16.6 % 16.2 % Platelet Count 135 TH/MM3 124 TH/MM3 Mean Platelet Volume 9.8 FL 10.9 FL Neutrophils (%) (Auto) 58.7 % Lymphocytes (%) (Auto) 29.3 % Monocytes (%) (Auto) 9.1 % Eosinophils (%) (Auto) 2.8 % Basophils (%) (Auto) 0.1 % Neutrophils # (Auto) 2.3 TH/MM3 Lymphocytes # (Auto) 1.2 TH/MM3 Monocytes # (Auto) 0.4 TH/MM3 Eosinophils # (Auto) 0.1 TH/MM3 Basophils # (Auto) 0.0 TH/MM3 CBC Comment DIFF FINAL Differential Comment Hematology Comments Physical Examination HEENT: Normocephalic; atraumatic; no jaundice. CHEST: CTA CARDIAC: RRR ABDOMEN: Soft, nondistended, mild to moderate epigastric tenderness; no hepatosplenomegaly; bowel sounds are present in all four quadrants. EXTREMITIES: No clubbing, cyanosis, or edema. SKIN: Normal; no rash; no jaundice. 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 (Nalini Willett) Assessment and Plan Plan ASSESSMENT: - Acute on chronic abdominal pain in patient with known gastroparesis with chronic opioid use. She reports that she has had her symptoms for a long time and requires Dilaudid 4mg po q4h at home along with Valium TID for nausea- states she is allergic to Reglan, Phenergan, Compazine, Zofran- cause difficulty breathing and therefore can only take Valium. Pt was recently found to have gastroparesis with response to EES on GES. D/W patient that her chronic narcotic use is contributing to her symptoms, but the patient refuses to stop her Dilaudid, stating that she will not eat if this is stopped and that it is the only thing that helps her symptoms. Last EGD/colonoscopy (11/22/15) and this revealed status post gastric bypass, biopsy of gastric polyp, diverticulosis in the sigmoid and descending colon, retroflex views revealed small internal hemorrhoids, external hemorrhoids. Pathology revealed mild chronic gastritis, negative for helicobacter pylori. She is getting EES IVPB and Pepcid. Strongly recommend weaning off narcotics. Will change the pepcid to PPI and continue EES. PLAN: - ASH - Cont. EES - D/C Pepcid - Protonix 40mg po daily - Highly recommend avoiding narcotics, as this is contributing to her gastroparesis and abdominal pain. D/W patient, but she reports that without the Dilaudid, she will not eat and it is the only thing that helps her. - If no improvement, consider repeat EGD. - Supportive care - Further recommendations to follow based on results of above - Pt seen and examined by Dr. Loaiza and myself and this note is written on his behalf (Nalini Willett) Physician Comments Patient Seen and examined Agree with above Continue with current supportive care Monitor labs Recommend pain management (Ramon Loaiza MD) Nalini Willett Aug 09, 2016 11:01 Ramon Loaiza MD Aug 09, 2016 18:23
--- NOTE | 2016-08-09 11:18 | HHI.PR ---
Subjective Remarks 56yr old female seen and examined today. Able tolerate liquids. Feels very weak. Per GI: S/P extensive testing with EGD/Colonoscopy, CT scans, Xrays, MRI, GES. Recently found to have gastroparesis with good response to EES. EGD/ Colonoscopy (11/22/15) and this revealed s/p gastric bypass, biopsy of gastric polyp; diverticulosis in sigmoid and descending colon, retroflexed views revealed small internal hemorrhoids, external hemorrhoids. Pathology revealed mild chronic gastritis, negative for helicobacter pylori. Objective Objective Results - Vital Signs Date Time Temp Pulse Resp B/P Pulse Ox O2 Delivery O2 Flow Rate FiO2 08/09/16 08:30 Room Air 08/09/16 08:00 98.4 76 16 114/59 100 08/09/16 04:00 98.1 73 18 116/62 99 08/09/16 00:00 97.4 75 18 111/62 98 08/08/16 20:24 68 08/08/16 20:00 97.4 69 18 97/53 99 08/08/16 19:45 Room Air 08/08/16 16:00 97.9 69 20 90/56 96 08/08/16 12:00 97.6 66 20 80/50 100 I/O 08/08/16 08/08/16 08/08/16 08/09/16 08/09/16 08/09/16 07:00 15:00 23:00 07:00 15:00 23:00 Intake Total 1240 ml 1100 ml Balance 1240 ml 1100 ml Intake Oral 240 ml 100 ml IV Total 1000 ml 1000 ml # Voids 1 2 # Bowel Movements 0 Result Diagram: 08/09/16 0804 08/09/16 0804 Other Results Laboratory Tests Test 08/08/16 08/08/16 08/09/16 12:32 15:21 08:04 Sodium Level 140 140 Potassium Level 4.2 5.9 Chloride Level 105 106 Carbon Dioxide Level 23.9 23.0 Anion Gap 11 11 Blood Urea Nitrogen 17 9 Creatinine 1.04 0.84 Estimat Glomerular Filtration 55 70 Rate Random Glucose 95 91 Calcium Level 8.4 7.9 White Blood Count 3.9 4.0 Red Blood Count 4.46 3.74 Hemoglobin 12.7 10.4 Hematocrit 39.1 31.4 Mean Corpuscular Volume 87.7 84.0 Mean Corpuscular Hemoglobin 28.4 27.9 Mean Corpuscular Hemoglobin 32.4 33.2 Concent Red Cell Distribution Width 16.6 16.2 Platelet Count 135 124 Mean Platelet Volume 9.8 10.9 Neutrophils (%) (Auto) 58.7 Lymphocytes (%) (Auto) 29.3 Monocytes (%) (Auto) 9.1 Eosinophils (%) (Auto) 2.8 Basophils (%) (Auto) 0.1 Neutrophils # (Auto) 2.3 Lymphocytes # (Auto) 1.2 Monocytes # (Auto) 0.4 Eosinophils # (Auto) 0.1 Basophils # (Auto) 0.0 CBC Comment DIFF FINAL Differential Comment Hematology Comments ROS General: Fatigue, Weakness HEENT: No: Sore Throat, Dysphagia, Other Cardiac: No: Chest Pain, Edema, Palpitations, Other Pulmonary: No: Cough, SOB, Wheezing, Other GI: Abdominal Pain, Diarrhea, N/V /TOUR ACTOR: No: Dysuria, Urgency, Other Neuro/MS: No: Lightheaded, Confusion, Other Psych: No: Anxiety, Depression, Other Skin: No: Itching, Rash, Other Physical Exam Physical Exam PHYSICAL EXAMINATION GENERAL: This is a frail looking female who appears to be in no acute distress. She is alert and awake HEAD: Normocephalic without any lesion or mass noted. Facial features appear symmetric. EYES: Perrla, Normal eye movement, No icterus. OROPHARYNGEAL: Oropharynx without erythema or edema. MOUTH/THROAT: Buccal mucosa is moist NECK: Supple. No nuchal rigidity or lymphadenopathy. Trachea midline without deviation. Thyroid not palpable, no bruits appreciated. CARDIAC: Regular rhythm, regular rate, S1 and S2 are heard. No murmur. LUNGS: Clear to auscultation bilaterally. ABDOMEN: Soft, nontender, no organomegaly or masses. Bowel sounds are heard in all four quadrants. No rebound. No guarding. EXTREMITIES: No edema. NEUROLOGICAL: No focal deficits. SKIN:Warm and moist PSYCH: Mood and affect appropriate A/P Assessment and Plan DIAGNOSTIC IMPRESSION 1. Hypokalemia now hyperkalemia. 2. Dehydration. 3. Chronic abdominal pain. 4. Gastroparesis. 5. Generalized anxiety disorder. 6. History of nephrectomy. 7. History of NM. PLAN Change IVF to 1/2 NS at 100cc/hr. Advance diet as tolerated. Per patient she is aware of foods that exacerbate her condition. Patient declined nutrition consult. Potassium elevated. S/p replacement yesterday. Kayexalate 15gm po x 1. Rpt potassium level in am. Bentyl 20 mg IM prn. Protonix 40 mg IV. Appreciate GI input. Will monitor labs. Continued home medications as appropriate. DVT prophylaxis with SCDs. GI prophylaxis with PPI. Tito Scales MD Aug 09, 2016 11:18
[2016-08-09] MEDS ORDERED: SODIUM POLYSTYRENE SULFONATE SUSP 15 GM/60 ML CUP PO ONE (11:30)
[2016-08-09] MEDS: SODIUM CHLOR 0.45% 1000 ML INJ 1,000 ML IV SCH ×2 (14:42→22:24)
[2016-08-09] MEDS: PANTOPRAZOLE SOD 40 MG DELAYED RELEASE TAB PO SCH (14:42)
[2016-08-09] MEDS: IMIPRAMINE HCL 25 MG TAB PO SCH (20:19)
[2016-08-09] MEDS: TRIMETHOBENZAMIDE INJ 200 MG/2 ML VIAL IM PRN (22:23)
[2016-08-10] VITALS (9 sets, daily range): BP systolic 109–133; BP diastolic 60–83; PULSE 64–81; RESP 12–16; TEMP 97.4–98.6; O2SAT 94–100
[2016-08-10] MEDS: ERYTHROMYCIN INJ 250 MG in SODIUM CHLORIDE 0.9% INJ 100 ML IV SCH ×4 (00:28→17:26)
[2016-08-10] MEDS: HYDROmorphone HCL PF 1 MG/ML VIAL IV PUSH PRN ×3 (04:26→12:35)
[2016-08-10] MEDS: busPIRone HCL 5 MG TAB PO SCH ×2 (07:43→20:50)
[2016-08-10] MEDS: PANTOPRAZOLE SOD 40 MG DELAYED RELEASE TAB PO SCH (07:43)
[2016-08-10] MEDS: OLANZapine 5 MG TAB PO SCH ×2 (07:43→20:50)
[2016-08-10] MEDS: DIAZEPAM 10 MG TAB PO SCH ×3 (07:44→17:26)
[2016-08-10] MEDS ORDERED: AMBI10TA PO (07:50)
[2016-08-10] MEDS: SODIUM CHLOR 0.45% 1000 ML INJ 1,000 ML IV SCH ×2 (07:51→18:29)
[2016-08-10 08:15] LABS: HEMATOCRIT 30.2 % (35.0-46.0); MEAN CELL VOLUME 85.9 FL (80.0-100.0); MEAN CORPUSCULAR HEMOGLOBIN 27.8 PG (27.0-34.0); MEAN CORPUSCULAR HGB CONC 32.3 % (32.0-36.0); PLATELET COUNT 112 TH/MM3 (150-450); RED BLOOD COUNT 3.52 MIL/MM3 (4.00-5.30); RED CELL DISTRIBUTION WIDTH 16.3 % (11.6-17.2); REVIEW FLAG FINAL; WHITE BLOOD COUNT 3.4 TH/MM3 (4.0-11.0)
[2016-08-10 08:17] LABS: BICARBONATE 23.9 MEQ/L (21.0-32.0); POTASSIUM 3.1 MEQ/L (3.5-5.1)
[2016-08-10] MEDS: DICYCLOMINE HCL 20 MG/2 ML VIAL IM PRN ×2 (08:34→20:55)
--- NOTE | 2016-08-10 11:29 | HHI.GIFU ---
Subjective Remarks States she had a bad night, was dry heaving all night. Continues to have constant abdominal pain. She reports that she does not want her Dilaudid adjusted as this is the only thing that seems to help her pain and helps her have an appetite to eat and gain weight. States she does not want her Dilaudid adjusted for at least 2 weeks, after her current issues resolve. Objective Vitals I&O Vital Signs Date Time Temp Pulse Resp B/P Pulse Ox O2 Delivery O2 Flow Rate FiO2 08/10/16 08:48 Room Air 08/10/16 08:00 97.9 69 16 121/72 100 08/10/16 07:45 67 08/10/16 04:46 97.4 79 16 133/83 98 08/10/16 00:00 98.6 71 14 112/68 97 08/09/16 20:22 73 08/09/16 20:00 98.3 79 15 109/64 97 08/09/16 19:45 Room Air 08/09/16 16:00 98.2 85 16 115/59 100 08/09/16 12:00 98.4 72 16 100/60 100 I/O 08/09/16 08/09/16 08/09/16 08/10/16 08/10/16 08/10/16 07:00 15:00 23:00 07:00 15:00 23:00 Intake Total 1100 ml 480 ml 480 ml Output Total 300 ml Balance 1100 ml 480 ml 180 ml Intake Oral 100 ml 480 ml 480 ml IV Total 1000 ml Output Urine Total 300 ml # Voids 2 2 1 # Bowel Movements 0 1 0 Laboratory Laboratory Tests Test 08/10/16 06:34 White Blood Count 3.4 Red Blood Count 3.52 Hemoglobin 9.8 Hematocrit 30.2 Mean Corpuscular Volume 85.9 Mean Corpuscular Hemoglobin 27.8 Mean Corpuscular Hemoglobin 32.3 Concent Red Cell Distribution Width 16.3 Platelet Count 112 Mean Platelet Volume 10.0 Sodium Level 142 Potassium Level 3.1 Chloride Level 108 Carbon Dioxide Level 23.9 Anion Gap 10 Blood Urea Nitrogen 7 Creatinine 0.83 Estimat Glomerular Filtration 71 Rate Random Glucose 84 Calcium Level 8.0 Physical Exam HEENT: Normocephalic; atraumatic; no jaundice. CHEST: CTA CARDIAC: RRR ABDOMEN: Soft, nondistended, mild to moderate epigastric tenderness; no hepatosplenomegaly; bowel sounds are present in all four quadrants. EXTREMITIES: No clubbing, cyanosis, or edema. SKIN: Normal; no rash; no jaundice. 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 Assessment and Plan Plan ASSESSMENT: - Acute on chronic abdominal pain in patient with known gastroparesis with chronic opioid use. She reports that she has had her symptoms for a long time and requires Dilaudid 4mg po q4h at home along with Valium TID for nausea- states she is allergic to Reglan, Phenergan, Compazine, Zofran- cause difficulty breathing and therefore can only take Valium. Pt was recently found to have gastroparesis with response to EES on GES. D/W patient that her chronic narcotic use is contributing to her symptoms, but the patient refuses to stop her Dilaudid, stating that she will not eat if this is stopped and that it is the only thing that helps her symptoms. Last EGD/colonoscopy (11/22/15) and this revealed status post gastric bypass, biopsy of gastric polyp, diverticulosis in the sigmoid and descending colon, retroflex views revealed small internal hemorrhoids, external hemorrhoids. Pathology revealed mild chronic gastritis, negative for helicobacter pylori. She is getting EES IVPB. PPI. Dicyclomine. Strongly recommend weaning off narcotics- D/W patient again, she became extremely upset and tearful and states she does not want her pain meds adjusted for at least 2 weeks after her symptoms resolve. She again states that she can only eat if she takes the Dilaudid. PLAN: - ASH - Cont. EES - Cont. Protonix - Cont. Dicyclomine - Supportive care - Highly recommend avoiding narcotics, as this is contributing to her gastroparesis and abdominal pain. D/W patient, but she reports that without the Dilaudid, she will not eat and it is the only thing that helps her. - If no improvement, consider repeat EGD vs. G/J tube placement. - Further recommendations to follow based on results of above - Pt seen and examined by Dr. Swain and myself and this note is written on his behalf Nalini Willett Aug 10, 2016 11:29
[2016-08-10] MEDS ORDERED: POTASSIUM CL 40 MEQ/30 ML LIQ UDC PO ONE (14:15)
--- NOTE | 2016-08-10 15:42 | HHI.PR ---
Subjective Remarks Indicates she has had a rough day, has felt nauseous no actual vomiting Has had abdominal pain Indicates that only Valium works for her nausea, however she did receive Tigan yesterday without any problems or adverse effects States that she never contacted [facility], [place] or [place] after last admission Discussed with patient the need to wean her off IV Dilaudid and try her on oral as she is able to tolerate diet Reiterated advise from GI that narcotics are worsening her gastroparesis pt. agreeable with plan to wean off IV narcotics and then switch to PO, she wants to go home tomorrow Objective Objective Results - Vital Signs Date Time Temp Pulse Resp B/P Pulse Ox O2 Delivery O2 Flow Rate FiO2 08/10/16 12:00 97.9 64 12 109/70 100 08/10/16 08:48 Room Air 08/10/16 08:00 97.9 69 16 121/72 100 08/10/16 07:45 67 08/10/16 04:46 97.4 79 16 133/83 98 08/10/16 00:00 98.6 71 14 112/68 97 08/09/16 20:22 73 08/09/16 20:00 98.3 79 15 109/64 97 08/09/16 19:45 Room Air 08/09/16 16:00 98.2 85 16 115/59 100 I/O 08/09/16 08/09/16 08/09/16 08/10/16 08/10/16 08/10/16 07:00 15:00 23:00 07:00 15:00 23:00 Intake Total 1100 ml 480 ml 480 ml 881 ml Output Total 300 ml Balance 1100 ml 480 ml 180 ml 881 ml Intake Oral 100 ml 480 ml 480 ml IV Total 1000 ml 881 ml Output Urine Total 300 ml # Voids 2 2 1 # Bowel Movements 0 1 0 Result Diagram: 08/10/16 0634 08/10/16 0634 Other Results Laboratory Tests Test 08/10/16 06:34 White Blood Count 3.4 Red Blood Count 3.52 Hemoglobin 9.8 Hematocrit 30.2 Mean Corpuscular Volume 85.9 Mean Corpuscular Hemoglobin 27.8 Mean Corpuscular Hemoglobin 32.3 Concent Red Cell Distribution Width 16.3 Platelet Count 112 Mean Platelet Volume 10.0 Sodium Level 142 Potassium Level 3.1 Chloride Level 108 Carbon Dioxide Level 23.9 Anion Gap 10 Blood Urea Nitrogen 7 Creatinine 0.83 Estimat Glomerular Filtration 71 Rate Random Glucose 84 Calcium Level 8.0 ROS General: No: Fatigue, Weakness HEENT: No: Sore Throat, Dysphagia Cardiac: No: Chest Pain, Edema, Palpitations Pulmonary: No: Cough, SOB, Wheezing GI: Abdominal Pain, 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 She is alert and awake HEAD: Normocephalic without any lesion or mass noted. Facial features appear symmetric. EYES: Perrla, Normal eye movement, No icterus. OROPHARYNGEAL: Oropharynx without erythema or edema. MOUTH/THROAT: Buccal mucosa is moist NECK: Supple. No nuchal rigidity or lymphadenopathy. Trachea midline without deviation. Thyroid not palpable, no bruits appreciated. CARDIAC: Regular rhythm, regular rate, S1 and S2 are heard. No murmur. LUNGS: Clear to auscultation bilaterally. ABDOMEN: Soft, mild diffuse tenderness, no organomegaly or masses. Bowel sounds are heard in all four quadrants. No rebound. No guarding. EXTREMITIES: No edema. NEUROLOGICAL: No focal deficits. SKIN:Warm and moist PSYCH: Anxious, tearful when discussing pain management Urinary Catheter: No Vascular Central Line Catheter: No A/P Diagnosis: (1) Hypokalemia (2) Chronic pain (3) Nausea & vomiting (4) GERD (gastroesophageal reflux disease) (5) Narcotic abuse (6) History of CVA (cerebrovascular accident) (7) CAD (coronary artery disease) (8) History of fundoplication (9) Gastroparesis (10) Malnourished Assessment and Plan Continue with IVF 1/2 NS at 100cc/hr. Replace potassium Advance diet as tolerated, patient is aware of foods that exacerbate her condition Appreciate GI input, patient has been counseled about use of narcotics exacerbating gastroparesis. Continue Bentyl Continue EES Continue PPI Per GI, she has been recommended repeat EGD versus GJ placement if no improvement. Patient would rather avoid During previous admission, she was counseled to seek opinion from [facility] versus [facility] Patient has had extensive GI workup Patient has not made any attempts to contact any of the facilities States that she will try to do so this time Discussed narcotic use, we will give her 1 more dose of IV Dilaudid today then switch her to oral-patient is agreeable She will order lunch, monitor intake and see if she can tolerate If she does well, we plan to discharge tomorrow Advance diet as tolerated. Patient unable to tolerate any antiemetics, indicates they'll cause different allergic reactions including Tigan although this was given yesterday and she tolerated well Continue Valium as needed for nausea She is requesting sleeping pill, has slept poorly, Ambien 10 mg by mouth daily at bedtime when necessary for insomnia DVT prophylaxis with SCDs. GI prophylaxis with PPI. D/W RN D/W Dr. Jo D/W pt This patient was seen by myself in Dr. Jo, this note is written on his behalf Problem Qualifiers (1) Chronic pain: Qualified Code: G89.4 - Chronic pain syndrome (2) Nausea & vomiting: Qualified Code: R11.2 - Non-intractable vomiting with nausea, unspecified vomiting type (3) GERD (gastroesophageal reflux disease): Qualified Code: K21.9 - Gastroesophageal reflux disease, esophagitis presence not specified (4) CAD (coronary artery disease): Qualified Code: I25.10 - Coronary artery disease involving [place] coronary artery of [place] heart without angina pectoris Leatha Levine Aug 10, 2016 15:42
[2016-08-10] MEDS: HYDROmorphone HCL 4 MG TAB PO PRN (18:45)
[2016-08-10] MEDS: IMIPRAMINE HCL 25 MG TAB PO SCH (20:50)
[2016-08-10] MEDS ORDERED: ZOLPIDEM TARTRATE 10 MG TAB PO PRN (21:00)
[2016-08-10] MEDS ORDERED: HYDROmorphone HCL 4 MG TAB PO PRN (22:00)
[2016-08-11] MEDS: ERYTHROMYCIN INJ 250 MG in SODIUM CHLORIDE 0.9% INJ 100 ML IV SCH ×3 (01:50→12:10)
[2016-08-11 03:40] VITALS: BP 130/60; PULSE 72; RESP 16; TEMP 98.3; O2SAT 97
[2016-08-11] MEDS: SODIUM CHLOR 0.45% 1000 ML INJ 1,000 ML IV SCH ×2 (05:55→07:53)
[2016-08-11] MEDS: HYDROmorphone HCL 4 MG TAB PO PRN ×2 (05:56→12:10)
[2016-08-11] MEDS: DIAZEPAM 10 MG TAB PO SCH ×2 (07:52→12:10)
[2016-08-11] MEDS: OLANZapine 5 MG TAB PO SCH (07:52)
[2016-08-11] MEDS: PANTOPRAZOLE SOD 40 MG DELAYED RELEASE TAB PO SCH (07:52)
[2016-08-11] MEDS: busPIRone HCL 5 MG TAB PO SCH (07:53)
[2016-08-11 08:00] VITALS: BP 104/63; PULSE 68; RESP 18; TEMP 98.6; O2SAT 96
[2016-08-11 12:00] VITALS: BP 127/74; PULSE 70; RESP 16; TEMP 98.9; O2SAT 99
[2016-08-11] MEDS ORDERED: ERYTHROMYCIN ETHYLSUCCINATE 200 MG/5 ML SUSP 100 ML BOTTLE PO SCH (14:00)
--- NOTE | 2016-08-11 14:00 | HHI.PR ---
Subjective Remarks wants more IV Dilaudid was able to tolerate some dinner last night eating lunch now no n/v offered J/G tube for nutrition, doesn't want one " I want to try eating at home " no fever ambulating in room Objective Objective Results - Vital Signs Date Time Temp Pulse Resp B/P Pulse Ox O2 Delivery O2 Flow Rate FiO2 08/11/16 12:00 98.9 70 16 127/74 99 08/11/16 09:08 Room Air 08/11/16 08:00 98.6 68 18 104/63 96 08/11/16 03:40 98.3 72 16 130/60 97 08/10/16 23:22 97.8 76 16 110/60 94 08/10/16 21:38 98.1 74 16 109/60 95 08/10/16 21:00 67 08/10/16 20:00 Room Air 08/10/16 16:00 98.1 81 16 127/75 97 I/O 08/10/16 08/10/16 08/10/16 08/11/16 08/11/16 08/11/16 07:00 15:00 23:00 07:00 15:00 23:00 Intake Total 881 ml 240 ml 240 ml Output Total 350 ml 1050 ml Balance 881 ml -110 ml -810 ml Intake Oral 240 ml 240 ml IV Total 881 ml Output Urine Total 350 ml 1050 ml # Voids 1 # Bowel Movements 0 0 0 Result Diagram: 08/10/16 0634 08/10/16 0634 ROS General: No: Fatigue, Weakness HEENT: No: Sore Throat, Dysphagia Cardiac: No: Chest Pain, Edema, Palpitations Pulmonary: No: Cough, SOB, Wheezing GI: Abdominal Pain, No: BM, Diarrhea, N/V, Other /CAUSTICISER: No: Dysuria, Urgency Neuro/MS: No: Lightheaded, Confusion Psych: No: Anxiety, Depression Skin: No: Itching, Rash Physical Exam Physical Exam GENERAL: This is a frail looking female who appears to be in no acute distress. She is alert and awake HEAD: Normocephalic without any lesion or mass noted. Facial features appear symmetric. EYES: Perrla, Normal eye movement, No icterus. OROPHARYNGEAL: Oropharynx without erythema or edema. MOUTH/THROAT: Buccal mucosa is moist NECK: Supple. No nuchal rigidity or lymphadenopathy. Trachea midline without deviation. Thyroid not palpable, no bruits appreciated. CARDIAC: Regular rhythm, regular rate, S1 and S2 are heard. No murmur. LUNGS: Clear to auscultation bilaterally. ABDOMEN: Soft, mild diffuse tenderness, no organomegaly or masses. Bowel sounds are heard in all four quadrants. No rebound. No guarding. EXTREMITIES: No edema. NEUROLOGICAL: No focal deficits. SKIN:Warm and moist PSYCH: Anxious Urinary Catheter: No Vascular Central Line Catheter: No A/P Diagnosis: (1) Hypokalemia (2) Chronic pain (3) Nausea & vomiting (4) GERD (gastroesophageal reflux disease) (5) Narcotic abuse (6) History of CVA (cerebrovascular accident) (7) CAD (coronary artery disease) (8) History of fundoplication (9) Gastroparesis (10) Malnourished Assessment and Plan Continue with IVF 1/2 NS at 100cc/hr. Advance diet as tolerated, patient is aware of foods that exacerbate her condition Appreciate GI input, patient has been counseled about use of narcotics exacerbating gastroparesis. Continue Bentyl Continue EES-change to PO Valium PRN nausea Continue PPI Per GI, she has been recommended repeat EGD versus GJ placement if no improvement. Patient would rather avoid During previous admission, she was counseled to seek opinion from [facility] versus [facility] Patient has had extensive GI workup Patient has not made any attempts to contact any of the facilities States that she will try to do so this time Continue PO Dilaudid, again she was counselled about narc and exacerbating her condition. She is having a hard time weaning off Tolerating diet fairly well. DVT prophylaxis with SCDs. GI prophylaxis with PPI. Plan to discharge today F/U at [facility] or [facility]. If she continues to have problems with weight loss and not eating, may benefit from GJ tube. Reluctant to have it done Diet-as tolerated Activity-as tolerated D/W RN D/W Dr. Jo D/W pt This patient was seen by myself in Dr. Jo, this note is written on his behalf Discharge Planning 40 minutes Problem Qualifiers (1) Chronic pain: Qualified Code: G89.4 - Chronic pain syndrome (2) Nausea & vomiting: Qualified Code: R11.2 - Non-intractable vomiting with nausea, unspecified vomiting type (3) GERD (gastroesophageal reflux disease): Qualified Code: K21.9 - Gastroesophageal reflux disease, esophagitis presence not specified (4) CAD (coronary artery disease): Qualified Code: I25.10 - Coronary artery disease involving [place] coronary artery of [place] heart without angina pectoris Leatha Levine Aug 11, 2016 14:00
--- NOTE | 2016-08-11 14:08 | HHI.GIFU ---
Subjective Remarks Resting in bed with eyes closed and fork in hand. Appears to have fallen asleep while eating lunch. Easily arousable and once awake c/o abdominal pain and states she is upset that her IV Dilaudid was discontinued and was asking for this to be changed back to IV. I explained that I cannot change her pain medications and she then asked me to call her attending and tell them that she needs the IV Dilaudid instead of PO. States she will not be able to eat unless she gets the Dilaudid IV and that she has already lost so much weight. D/W patient possible need for G/J tube if she is not able to eat, given her hx of gastroparesis. She then stated that she has thought about this, but does not want to pursue now and would like to go home and see if she gets better. Objective Vitals I&O Vital Signs Date Time Temp Pulse Resp B/P Pulse Ox O2 Delivery O2 Flow Rate FiO2 08/11/16 12:00 98.9 70 16 127/74 99 08/11/16 09:08 Room Air 08/11/16 08:00 98.6 68 18 104/63 96 08/11/16 03:40 98.3 72 16 130/60 97 08/10/16 23:22 97.8 76 16 110/60 94 08/10/16 21:38 98.1 74 16 109/60 95 08/10/16 21:00 67 08/10/16 20:00 Room Air 08/10/16 16:00 98.1 81 16 127/75 97 I/O 08/10/16 08/10/16 08/10/16 08/11/16 08/11/16 08/11/16 07:00 15:00 23:00 07:00 15:00 23:00 Intake Total 881 ml 240 ml 240 ml Output Total 350 ml 1050 ml Balance 881 ml -110 ml -810 ml Intake Oral 240 ml 240 ml IV Total 881 ml Output Urine Total 350 ml 1050 ml # Voids 1 # Bowel Movements 0 0 0 Physical Exam HEENT: Normocephalic; atraumatic; no jaundice. CHEST: CTA CARDIAC: RRR ABDOMEN: Soft, nondistended, mild epigastric tenderness; no hepatosplenomegaly ; bowel sounds are present in all four quadrants. EXTREMITIES: No clubbing, cyanosis, or edema. SKIN: Normal; no rash; no jaundice. SLD EDUCATIONAL AIDE: No focal deficits; alert and oriented times three. Assessment and Plan Plan ASSESSMENT: - Acute on chronic abdominal pain in patient with known gastroparesis with chronic opioid use. She reports that she has had her symptoms for a long time and requires Dilaudid 4mg po q4h at home along with Valium TID for nausea- states she is allergic to Reglan, Phenergan, Compazine, Zofran- cause difficulty breathing and therefore can only take Valium. Pt was recently found to have gastroparesis with response to EES on GES. D/W patient that her chronic narcotic use is contributing to her symptoms, but the patient refuses to stop her Dilaudid, stating that she will not eat if this is stopped and that it is the only thing that helps her symptoms. Last EGD/colonoscopy (11/22/15) and this revealed status post gastric bypass, biopsy of gastric polyp, diverticulosis in the sigmoid and descending colon, retroflex views revealed small internal hemorrhoids, external hemorrhoids. Pathology revealed mild chronic gastritis, negative for helicobacter pylori. She is getting EES IVPB. PPI. Dicyclomine. Strongly recommend weaning off narcotics- D/W patient again, she became extremely upset and wants her Dilaudid changed back to IV. Okay to change EES to po. Cont. PPI/Dicyclomine. PLAN: - ASH - Change EES to po - Cont. Protonix - Cont. Dicyclomine - Pt states that she cannot eat without the Dilaudid. D/W patient G/J tube placement- she is refusing and states she would like to go home and consider this if she has no improvement over the next 2 weeks - FU MARIANN 2 weeks. - GI will sign off, please reconsult as needed - Pt seen and examined by Dr. Swain and myself and this note is written on his behalf Nalini Willett Aug 11, 2016 14:08
[2016-08-11] MEDS ORDERED: ERYT1SUS5 PO (14:10)
--- NOTE | 2016-08-11 14:10 | HHI.DCPOC ---
Discharge Care Plan Diagnosis: (1) Gastroparesis (2) Nausea & vomiting Your Health Problems Are: Appetite Changes Goals to Promote Your Health * To prevent worsening of your condition and complications * To maintain your health at the optimal level Directions to Meet Your Goals Take your medications as prescribed Follow your dietary instruction Follow activity as directed Keep your appointments as scheduled Take your immunizations and boosters as scheduled If your symptoms worsen call your PCP, if no PCP go to Urgent Care Center or Emergency Room Smoking is Dangerous to Your Health. Avoid second hand smoke Call the 24-hour hour crisis hotline for domestic abuse at Leatha Levine. [facility] Aug 11, 2016 14:10
--- NOTE | 2016-09-08 22:07 | HHI.DS ---
Discharge Summary Admission Date Aug 07, 2016 at 22:58 Discharge Date: Aug 11, 2016 Admitting Diagnosis hypokalemia. Dehydration. Abdominal pain. (1) Hypokalemia (2) Chronic pain (3) Nausea & vomiting (4) GERD (gastroesophageal reflux disease) (5) Narcotic abuse (6) History of CVA (cerebrovascular accident) (7) CAD (coronary artery disease) (8) History of fundoplication (9) Gastroparesis (10) Malnourished Hospital Course The patient is a 56-year-old female who presented to the ER with complaints of abdominal pain with nausea, vomiting and diarrhea. The patient has a history of recurrent and chronic abdominal pain with nausea and vomiting. The patient has been to the emergency room multiple times in the past with the same problem. The patient states that she started having diarrhea since last night. Denies any blood or mucus, denies any chest pain, shortness of breath or headache, denies any fever. Does complain of diffuse abdominal pain which is cramping in nature and per patient it has not worsened, it has been there for a long time. The patient denies any radiation, denies any dysuria or frequency. Denies any vaginal discharge or bleeding. Per patient she usually gets Dilaudid and Ativan for the pain. The patient is being followed by a material control supervisor for GI problems and her material control supervisor is Dr. Hoover and per patient she has an appointment next week Pt. evaluated in the ED: VITAL SIGNS: Blood pressure is 102/59, pulse ox is 98 on room air. Pulse is 102. Temperature is 97.5. LABORATORY DATA WBC is 13.2, hemoglobin 12.7, hematocrit 40.2, platelets 206,000, potassium is 2.3, sodium 139, calcium 8.9. Pt. admitted for: (1) Hypokalemia (2) Chronic pain (3) Nausea & vomiting (4) GERD (gastroesophageal reflux disease) (5) Narcotic abuse (6) History of CVA (cerebrovascular accident) (7) CAD (coronary artery disease) (8) History of fundoplication (9) Gastroparesis (10) Malnourished During the course of the hospitalization, the following took place: Pt. admitted, put on IVF, analgesics, PPI Put on Bentyl. GI consulted. Had extensive work up in the past. Appreciate GI input, patient was counseled about use of narcotics exacerbating gastroparesis. Started on EE IV, then was changed to PO. Nausea improved, no more vomiting. Pt could not take antiemetics, stated she had allergies. Only wanted Valium PRN Per GI, she was recommended repeat EGD versus GJ placement if no improvement. Patient would rather avoid and wanted diet advanced and see how she did at home. During previous admission, she was counseled to seek opinion from [facility] versus [facility] Patient has had extensive GI workup Patient has not made any attempts to contact any of the facilities States that she will try to do so this time Continued PO Dilaudid, again she was counselled about narc and exacerbating her condition. She is having a hard time weaning off Tolerated diet fairly well, knew what foods triggered symptoms. Was put on DVT prophylaxis with SCDs and GI prophylaxis with PPI. Pt. improved, tolerated diet. Cleared by GI. Instructed to: F/U at [facility] or [facility]. If she continues to have problems with weight loss and not eating, may benefit from GJ tube. Reluctant to have it done Diet-as tolerated Activity-as tolerated Pt Condition on Discharge: Stable Discharge Disposition: Discharge Home Discharge Instructions DIET: Follow Instructions for: As Tolerated, No Restrictions Activities you can perform: Weight Bearing as Marcella Follow up Referrals: Appointment for Follow Up FOLLOW UP AT [facility] OR [facility] Gastroenterology - 2 Weeks @ [facility] PCP Follow-up Continued Medications: Buspirone (Buspirone) 7.5 Mg Tab 7.5 MG PO BID Anxiety Ref 0 TAB Cyanocobalamin Inj (Cyanocobalamin Inj) 1,000 Mcg/Ml Inj 1000 MCG IM Q30D #1 Ref 0 VIAL Diazepam (Valium) 10 Mg Tab 10 MG PO TID Ref 0 TAB Hydromorphone (Dilaudid) 4 Mg Tab 4 MG PO Q6H PRN Pain Management Ref 0 TAB Imipramine HCL (Imipramine HCL) 25 Mg Tab 25 MG PO HS Control Depression Ref 0 TAB Olanzapine (Zyprexa) 5 Mg Tab 5 MG PO BID #60 Ref 0 TAB Zolpidem (Ambien) 10 Mg Tab 10 MG PO HS PRN INSOMNIA Ref 0 TAB Leatha Levine Sep 08, 2016 22:07
== END 2016-08-11 15:50 | disposition home or self-care (01) | DRG 641 ==
LOC: NEPA 17:54 → NEDA 22:58 → N04B 22:58 → NEDA 08-08 03:45
PROVIDERS: ADMIT Family Medicine; ATTEND Family Medicine
DX: E87.6 Hypokalemia (principal); E86.0 Dehydration; E46 Unspecified protein-calorie malnutrition; K31.84 Gastroparesis; Z90.3 Acquired absence of stomach [part of]; Z68.1 Body mass index [BMI] 19.9 or less, adult; Z90.5 Acquired absence of kidney; Z85.528 Personal history of other malignant neoplasm of kidney; I25.2 Old myocardial infarction; I25.10 Atherosclerotic heart disease of native coronary artery without angina pectoris; F41.1 Generalized anxiety disorder; R10.13 Epigastric pain; G89.29 Other chronic pain; Z88.8 Allergy status to other drugs, medicaments and biological substances; Z79.891 Long term (current) use of opiate analgesic; E87.5 Hyperkalemia; Z86.73 Personal history of transient ischemic attack (TIA), and cerebral infarction without residual deficits
CPT/HCPCS: 80048; 80053; 83690; 83735; 85025; 85027; 85610; 85730; 93005; 96372; 96374; 96375; C9113; J0500; J1170; J1364; J2060; J3250; J3410; J3480; J7030

== ENCOUNTER 2016-08-12 14:52 | Observation (INO) | payer BC ==
[~2016-08-12] VITALS: Ht 157.5 cm; Wt 41.0 kg
[~2016-08-12 14:52] MED LIST changes: +AMBI10TA PO; +ERYT1SUS5 PO
[2016-08-12 14:54] VITALS: BP 118/70; PULSE 73; RESP 20; TEMP 98; O2SAT 100
[2016-08-12 16:21] VITALS: BP 132/82; PULSE 60; RESP 18; O2SAT 100
[2016-08-12] MEDS ORDERED: SODIUM CHLOR 0.9% 1000 ML INJ 1,000 ML IV ONE (16:28)
[2016-08-12] MEDS ORDERED: LORazepam 2 MG/ML VIAL IV PUSH ONE (16:30)
--- NOTE | 2016-08-12 16:34 | PD ---
HPI Chief Complaint: Abdominal Pain Time Seen by Provider: 16:20 Travel History International Travel<30 days: No Contact w/Intl Traveler<30days: No Traveled to known affect area: No History of Present Illness HPI 56-year-old female with history of chronic abdominal pain, gastrectomy, gastroparesis, cholecystectomy, frequent visitor to the emergency room for evaluation of these symptoms. She presents with persistent abdominal pain. It is an aching pain that is epigastric and constant. Associated with nausea and dry heaving. She is allergic to most antiemetics, she typically takes Ativan or Valium for nausea as well as Dilaudid for chronic pain. The patient was discharged yesterday after being hospitalized for hyperkalemia and chronic abdominal pain. She reports that this morning she was dizzy and hit her head on the table and passed out. She woke up on the ground. She is now having a right-sided headache along with her chronic abdominal pain. Denies any episodes of chest pain, shortness of breath or palpitation. Her clip on sunglasses inspector is Dr. Hoover. No other complaints. PFSH Past Medical History Hx Anticoagulant Therapy: No Asthma: No Blood Disorders: No Anxiety: Yes Depression: No Heart Rhythm Problems: No Cancer: Yes (kidney) Cardiovascular Problems: Yes (MS) High Cholesterol: No Chemotherapy: Yes (KIDNEY ) Chest Pain: No Congestive Heart Failure: No COPD: No Cerebrovascular Accident: Yes Diabetes: No Diminished Hearing: No Endocrine: No Gastrointestinal Disorders: Yes GERD: No Genitourinary: Yes (RIGHT NEPHRECTOMY) Headaches: Yes Hiatal Hernia: Yes Hypertension: No Immune Disorder: No Implanted Vascular Access Dvce: No Kidney Stones: No Musculoskeletal: No Neurologic: No Psychiatric: No Reproductive: No Respiratory: No Immunizations Current: Yes Migraines: Yes Myocardial Infarction: Yes (2005) Pneumonia: Yes Radiation Therapy: No Renal Failure: No Seizures: Yes Sleep Apnea: No Thyroid Disease: No Ulcer: No ?: Not Menopausal: Yes : 1 Para: 1 Miscarriage: 0 : 0 Ectopic : No Ovarian Cysts: No Dilation and Curettage (D&C): Yes Tubal Ligation: Yes Past Surgical History Abdominal Surgery: Yes (total gastrectomy w/pouch 2002, hernia repair) Appendectomy: Yes Cardiac Surgery: Yes (pt states an occulator was placed in her heart 2005) Cholecystectomy: Yes Gynecologic Surgery: Yes Hysterectomy: Yes Thoracic Surgery: No Tonsillectomy: Yes Other Surgery: Yes (tot gastrectomy) Social History Alcohol Use: No Tobacco Use: No Substance Use: No Allergies-Medications (Allergen,Severity, Reaction): Coded Allergies: Compazine (Verified Allergy, Severe, SOB, 08/12/16) Gadolinium Derivatives (Verified Allergy, Severe, RESPIRATORY DISTRESS, 08/12/16) Lobster (Verified Allergy, Severe, Anaphylaxis, 08/12/16) Morphine (Verified Allergy, Severe, Hives, 08/12/16) PT HAVING HIVES AND ITCHING TO ARM ABOVE IV SITE AFTER ADMINISTRATION OF MORPHINE Phenergan (Verified Allergy, Severe, SOB, 08/12/16) Reglan (Verified Allergy, Severe, SOB, 08/12/16) Toradol (Verified Allergy, Severe, Shortness of Breath, 08/12/16) Zofran (Verified Allergy, Severe, SOB, 08/12/16) Tigan (Verified Allergy, Intermediate, 08/12/16) difficult breathing Penicillin (Verified Allergy, Mild, RASH, 08/12/16) Sulfa (Verified Allergy, Mild, RASH, 08/12/16) Uncoded Allergies: GADOLINIUM (Adverse Reaction, Severe, PT STOPPED BREATHING WITH GADO, ) PT STATES SHE STOPPED BREATHING AFTER HAVING GADO AT ANOTHER FACILITY. 06/23/16 [facility] Reported Meds & Prescriptions Reported Meds & Active Scripts Active Erythromycin Ethylsuccinate Liq (Erythromycin Ethylsuccinate) 200 Mg/Ml Susp 200 Mg PO Q8H Reported Ambien (Zolpidem Tartrate) 10 Mg Tab 10 Mg PO HS PRN Dilaudid (Hydromorphone HCl) 4 Mg Tab 4 Mg PO Q6H PRN Valium (Diazepam) 10 Mg Tab 10 Mg PO TID Buspirone (Buspirone HCl) 7.5 Mg Tab 7.5 Mg PO BID Zyprexa (Olanzapine) 5 Mg Tab 5 Mg PO BID Cyanocobalamin Inj (Cyanocobalamin) 1,000 Mcg/Ml Inj 1,000 Mcg IM Q30D Imipramine HCL (Imipramine HCl) 25 Mg Tab 25 Mg PO HS Review of Systems Except as stated in HPI: all other systems reviewed are Neg Physical Exam Narrative GENERAL: Chronically ill anxious appearing female in no acute distress SKIN: Warm and dry. HEAD: Atraumatic. Normocephalic. EYES: Pupils equal and round. No scleral icterus. No injection or drainage. ENT: No nasal bleeding or discharge. Mucous membranes pink and moist. NECK: Trachea midline. No JVD. CARDIOVASCULAR: Regular rate and rhythm. No murmur appreciated. RESPIRATORY: No accessory muscle use. Clear to auscultation. Breath sounds equal bilaterally. GASTROINTESTINAL: Abdomen soft, epigastric tenderness without guarding. MUSCULOSKELETAL: No obvious deformities. No clubbing. No cyanosis. No edema. NEUROLOGICAL: Awake and alert. No obvious cranial nerve deficits. Motor grossly within normal limits. Normal speech. Normal ring packer strength. Full spontaneous use of the upper and lower extremities. Data Data Last Documented VS Vital Signs Date Time Temp Pulse Resp B/P Pulse Ox O2 Delivery O2 Flow Rate FiO2 08/12/16 16:21 60 18 132/82 100 Room Air 08/12/16 14:54 98.0 Orders Electrocardiogram (08/12/16 16:28) Complete Blood Count With Diff (08/12/16 16:28) Comprehensive Metabolic Panel (08/12/16 16:28) Magnesium (Mg) (08/12/16 16:28) Ckmb (Isoenzyme) Profile (08/12/16 16:28) Troponin I (08/12/16 16:28) Ct Brain W/O Iv Contrast(Rout) (08/12/16 16:28) Blood Glucose (08/12/16 16:28) Sodium Chlor 0.9% 1000 Ml Inj (Ns 1000 M (08/12/16 16:28) Lorazepam Inj (Ativan Inj) (08/12/16 16:30) Acetaminophen (Tylenol) (08/12/16 18:30) Al-Mag Hy-Si 40-40-4 Mg/Ml Liq (Mag-Al P (08/12/16 18:30) Lidocaine 2% Viscous (Xylocaine 2% Visco (08/12/16 18:30) CKMB (08/12/16 18:00) CKMB% (08/12/16 18:00) Labs Laboratory Tests Test 08/12/16 18:00 White Blood Count 3.4 TH/MM3 Red Blood Count 4.03 MIL/MM3 Hemoglobin 11.0 GM/DL Hematocrit 34.2 % Mean Corpuscular Volume 85.0 FL Mean Corpuscular Hemoglobin 27.4 PG Mean Corpuscular Hemoglobin 32.2 % Concent Red Cell Distribution Width 16.1 % Platelet Count 148 TH/MM3 Mean Platelet Volume 10.6 FL Neutrophils (%) (Auto) 57.2 % Lymphocytes (%) (Auto) 35.3 % Monocytes (%) (Auto) 6.5 % Eosinophils (%) (Auto) 0.9 % Basophils (%) (Auto) 0.1 % Neutrophils # (Auto) 2.0 TH/MM3 Lymphocytes # (Auto) 1.2 TH/MM3 Monocytes # (Auto) 0.2 TH/MM3 Eosinophils # (Auto) 0.0 TH/MM3 Basophils # (Auto) 0.0 TH/MM3 CBC Comment DIFF FINAL Differential Comment Sodium Level 142 MEQ/L Potassium Level 4.0 MEQ/L Chloride Level 105 MEQ/L Carbon Dioxide Level 27.7 MEQ/L Anion Gap 9 MEQ/L Blood Urea Nitrogen 13 MG/DL Creatinine 0.85 MG/DL Estimat Glomerular Filtration 69 ML/MIN Rate Random Glucose 81 MG/DL Calcium Level 8.9 MG/DL Magnesium Level 2.1 MG/DL Total Bilirubin 0.3 MG/DL Aspartate Amino Transf 31 U/L (AST/SGOT) Alanine Aminotransferase 28 U/L (ALT/SGPT) Alkaline Phosphatase 87 U/L Total Creatine Kinase 301 U/L Creatine Kinase MB 1.5 NG/ML Creatine Kinase MB % 0.5 % Troponin I LESS THAN 0.02 NG/ML Total Protein 6.9 GM/DL Albumin 3.5 GM/DL [facility] Medical Decision Making Medical Screen Exam Complete: Yes Emergency Medical Condition: Yes Medical Record Reviewed: Yes Interpretation(s) EKG sinus rhythm, new T-wave inversions are noted in V1 through V3 CT of the brain no acute abnormalities Differential Diagnosis Syncope, dehydration, electrolyte abnormality, hypoglycemia, closed head injury , intracranial hemorrhage, chronic abdominal pain Narrative Course 56-year-old female with chronic abdominal pain with nausea, decreased appetite and dry heaving. She became dizzy while walking today and hit her head against a table and passed out on the ground. We'll check CT of the brain, basic lab work. She'll be given IV fluids as well as Ativan for nausea. She will be reassessed. She is repeatedly asking for IV Dilaudid for her previous notes she has been strongly encouraged by GI to discontinue opiates so we will hold off for now. The patient will be admitted for further management given the generalized weakness, syncope. Discussed with Dr. Reddy who is agreeable with admission and agrees that Dilaudid would not be in the best interest of this patient. Procedures EKG Prior to Arrival: Yes Diagnosis Primary Impression: Syncope and collapse Additional Impressions: Nausea and vomiting Qualified Code: R11.2 - Nausea and vomiting, intractability of vomiting not specified, unspecified vomiting type Chronic abdominal pain Admitting Information Admitting Physician Requests: Observation Nestor Martinez Aug 12, 2016 16:34
--- NOTE | 2016-08-12 17:12 | RADRPT ---
EXAM DATE/TIME: 08/12/2016 16:39 [facility] COMPARISON: CT BRAIN W/O CONTRAST, June 23, 2016, 1:07. INDICATIONS : Fall three times today hit head on table. RADIATION DOSE: 56.36 CTDIvol (mGy) MEDICAL HISTORY : Cerebrovascular disease. Seizures. Cardiovascular diseaseKidney cancer SURGICAL HISTORY : Appendectomy. Cholecystectomy.Hysterectomy. ENCOUNTER: Initial ACUITY: 1 day PAIN SCALE: 6/10 LOCATION: cranial TECHNIQUE: Multiple contiguous axial images were obtained of the head. Using automated exposure control and adj ustment of the mA and/or kV according to patient size, radiation dose was kept as low as reasonably a chievable to obtain optimal diagnostic quality images. FINDINGS: CEREBRUM: The ventricles are normal for age. No evidence of midline shift, mass lesion, hemorrhage or acute in farction. No extra-axial fluid collections are seen. POSTERIOR FOSSA: The cerebellum and brainstem are intact. The 4th ventricle is midline. The cerebellopontine angle i s unremarkable. EXTRACRANIAL: The visualized portion of the orbits is intact. SKULL: The calvaria is intact. No evidence of skull fracture. CONCLUSION: 1. No evidence of acute intracranial pathology. No masses are identified. Edson Mahan MD on August 12, 2016 at 17:09 Board Certified Radiologist. This report was verified electronically.
[2016-08-12] MEDS ORDERED: LIDOCAINE VISCOUS 2% SOLN 15 ML UDC PO ONE (18:30)
[2016-08-12] MEDS ORDERED: ACETAMINOPHEN 500 MG CPLT PO ONE (18:30)
[2016-08-12] MEDS ORDERED: ALUMINUM/MAGNESIUM/SIMETH 30 ML CUP PO ONE (18:30)
[2016-08-12 18:37] LABS: BASOPHIL % 0.1 % (0.0-2.0); EOSINOPHIL % 0.9 % (0.0-4.0); HEMATOCRIT 34.2 % (35.0-46.0); HEMO FLAGS DIFF FINAL; LYMPH % 35.3 % (9.0-44.0); LYMPHOCYTE # 1.2 TH/MM3 (1.0-4.8); MEAN CORPUSCULAR HEMOGLOBIN 27.4 PG (27.0-34.0); MEAN CORPUSCULAR HGB CONC 32.2 % (32.0-36.0); MONO % 6.5 % (0.0-8.0); NEUT % 57.2 % (16.0-70.0); PLATELET COUNT 148 TH/MM3 (150-450); RED BLOOD COUNT 4.03 MIL/MM3 (4.00-5.30); RED CELL DISTRIBUTION WIDTH 16.1 % (11.6-17.2); WHITE BLOOD COUNT 3.4 TH/MM3 (4.0-11.0)
[2016-08-12 18:49] LABS: ALT (GPT) 28 U/L (10-53); ANION GAP 9 MEQ/L (5-15); AST (GOT) 31 U/L (15-37); BICARBONATE 27.7 MEQ/L (21.0-32.0); BLOOD UREA NITROGEN 13 MG/DL (7-18); CHLORIDE 105 MEQ/L (98-107); GLOMERULAR FILTRATION RATE 69 ML/MIN (>89); MAGNESIUM 2.1 MG/DL (1.5-2.5); SODIUM (NA) 142 MEQ/L (136-145)
[2016-08-12 18:53] LABS: ALKALINE PHOSPHATASE 87 U/L (45-117); CREATINE KINASE 301 U/L (26-192); TOTAL BILIRUBIN ADULT 0.3 MG/DL (0.2-1.0)
[2016-08-12 19:05] LABS: CKMB 1.5 NG/ML (0.5-3.6)
[2016-08-12 19:32] VITALS: BP 168/89; PULSE 64; O2SAT 100
[2016-08-12] MEDS ORDERED: ACETAMINOPHEN 325 MG TAB PO PRN (20:30)
[2016-08-12] MEDS ORDERED: SODIUM CHLORIDE 0.9% FLUSH 5 ML FLUSH FLUSH PRN (20:30)
[2016-08-12] MEDS ORDERED: ZOLPIDEM TARTRATE 10 MG TAB PO PRN (20:30)
[2016-08-12] MEDS ORDERED: PILL SPLITTER OTHER PRN (20:45)
[2016-08-12] MEDS: SODIUM CHLORIDE 0.9% FLUSH 5 ML FLUSH FLUSH SCH (21:00)
[2016-08-12] MEDS: SODIUM CHLOR 0.9% 1000 ML INJ 1,000 ML IV SCH (21:00)
[2016-08-12] MEDS: HEPARIN SODIUM - SQ 10,000 UNITS/ML VIAL SQ SCH (21:00)
[2016-08-12] MEDS ORDERED: CYANOCOBALAMIN 1000 MCG/ML VIAL IM SCH (21:00)
[2016-08-12] MEDS ORDERED: IMIPRAMINE HCL 25 MG TAB PO SCH (21:00)
[2016-08-12 23:05] VITALS: BP 119/79; PULSE 64; RESP 18; O2SAT 100
[2016-08-13] MEDS: OLANZapine 5 MG TAB PO SCH ×2 (01:00→09:30)
[2016-08-13] MEDS: ERYTHROMYCIN ETHYLSUCCINATE 200 MG/5 ML SUSP 100 ML BOTTLE PO SCH ×2 (01:01→01:08)
[2016-08-13] MEDS: busPIRone HCL 5 MG TAB PO SCH ×2 (01:01→09:30)
[2016-08-13 02:57] LABS: CREATINE KINASE 270 U/L (26-192)
[2016-08-13 03:09] LABS: CKMB 1.4 NG/ML (0.5-3.6)
[2016-08-13] MEDS ORDERED: LORazepam 1 MG TAB PO PRN (03:45)
[2016-08-13 03:57] VITALS: BP 136/74; PULSE 68; RESP 18; O2SAT 99
[2016-08-13 04:15] LABS: ANION GAP 8 MEQ/L (5-15); BLOOD UREA NITROGEN 9 MG/DL (7-18); CHLORIDE 108 MEQ/L (98-107); GLOMERULAR FILTRATION RATE 82 ML/MIN (>89); POTASSIUM 3.7 MEQ/L (3.5-5.1); SODIUM (NA) 143 MEQ/L (136-145)
[2016-08-13 04:18] LABS: CREATINE KINASE 230 U/L (26-192)
[2016-08-13 06:19] VITALS: BP 151/78; PULSE 70; RESP 14; O2SAT 98
[2016-08-13 07:20] VITALS: BP 159/85; PULSE 53; RESP 18; O2SAT 100
[2016-08-13] MEDS: HEPARIN SODIUM - SQ 10,000 UNITS/ML VIAL SQ SCH (08:53)
[2016-08-13] MEDS: SODIUM CHLOR 0.9% 1000 ML INJ 1,000 ML IV SCH (08:53)
[2016-08-13] MEDS: SODIUM CHLORIDE 0.9% FLUSH 5 ML FLUSH FLUSH SCH (09:00)
[2016-08-13] MEDS ORDERED: DIAZEPAM 10 MG TAB PO SCH (09:00)
--- NOTE | 2016-08-13 10:41 | MH ---
cc: CHANTELL SIMPSON MD DATE OF ADMISSION: 08/12/2016 DATE OF [address] Simpson CHIEF COMPLAINT Abdominal pain, fall and generalized weakness. TRAVEL IN THE LAST 30 DAYS None HISTORY OF PRESENT ILLNESS This is a pleasant 56-year-old female who has A significant history of chronic GI symptoms which include abdominal pain and gastroparesis. She has been followed per her vacuum applicator operator, Dr. Hoover as well as her PCP in the ER for chronic symptoms. She complains of persistent abdominal pain, decreased appetite. She states she has had a weight loss from 115 pounds to 90 pounds in two months. She states that she does eat, but does admit to a decreased appetite and a decreased p.o. intake. The patient states that she is currently having a flare-up with her symptoms. She has an aching sensation epigastric which seems to be fairly persistent. According to the record, she was discharged yesterday from the hospital with some of the same type of symptoms. She states that she went home and was attempting to walk across the floor and became very dizzy and fell. She states she did hit her head on the coffee table and passed out. There is no witness to this report. She states that she did awaken on the ground an unknown time frame afterwards and was complaining of some headache. The patient denies any recent fever, no chest pain. No shortness of breath. Currently chief complaint continues to be her abdominal pain. The patient is a fair historian. Some of the information is being gathered from the record. PAST MEDICAL HISTORY Includes: 1. Anxiety disorders 2. Cancer kidney 3. Cardiovascular disease 4. Previous MS 5. CVA 6. Gastrointestinal disorders orders which include her acute on chronic abdominal pain and gastroparesis. 7. History of migraines. 8. Pneumonia 9. Seizures 10. Hiatal hernia 11. Chronic pain PAST SURGICAL HISTORY 1. Total gastrectomy with pouch in 2002. 2. Hernia repair 3. Appendectomy 4. Cardiac surgery, according to the record, the patient states placed in her heart 2005. 5. Hysterectomy 6. Tonsillectomy 7. Cholecystectomy ALLERGIES COMPAZINE, GADOLINIUM AND DERIVATIVES, MORPHINE, PENICILLIN, PHENERGAN, LOBSTER, REGLAN, SULFA, TIGAN, TORADOL AND ZOFRAN. REVIEW OF SYSTEMS A 12-point review was done positives include generalized weakness, abdominal pain, nausea, decreased appetite, weight loss, dizziness. Other systems negative or unremarkable. PHYSICAL EXAM VITAL SIGNS: temperature is 98, pulse labile between 53 and 70, respirations 18, blood pressure initially on the ER visit 132/82 and 151/78. O2 sat 98 on room air. GENERAL: This is a 56-year-old female who looks to be her stated age resting on a the stretcher. She is soft-spoken and responds to simple questions and verbal stimuli. SKIN: Pale, warm and dry turgor. HEENT: Normocephalic. PERRL at two. No scleral icterus. Mucous membranes are pale and moist without discharge. NECK: Thin, supple. CARDIOVASCULAR: Regular rate and rhythm. No murmurs, rubs or gallops. No pedal edema. Pulses intact. RESPIRATORY: Low volumes essentially clear anteriorly and posteriorly with no wheezes, rales or rhonchi. GASTROINTESTINAL: Abdomen is flat, soft. Epigastric tenderness, generalized mild guarding. MUSCULOSKELETAL: Moves her extremities with purpose. Equal hand cloth burler. NEUROLOGIC: She is alert, awake, slightly anxious, a fair historian. Speech is normal. PSYCHOLOGIC: Mood and affect with anxiety. DIAGNOSTIC DATA WBC count 3.4, RBC 4.03, hemoglobin 11, hematocrit 34.2, platelet count 148. All other blood count numbers are normal. Sodium 143, potassium 3.7, chloride 108, carbon dioxide 27, amnion gap 8, BUN 9, creatinine 0.73, random glucose is 82, total creatinine kinase 230, troponin is less than 0.02, albumin 3.5. Head CT shows no evidence of any pathology no masses, no bleed. ASSESSMENT 1. Abdominal pain possible gastroenteritis 2. Gastroparesis 3. Chronic pain 4. Nausea 5. Syncope and collapse 6. Anemia, mild PLAN 1. Admit for observation. 2. We will monitor vital signs q4. 3. Cardiac monitoring which will include cardiac monitoring, DVT prophylaxis with heparin. 4. PUD prophylaxis with Pepcid. 5. Reconcile her medications. 6. Start her on erythromycin p.o. 7. Vitamin B12 injections 8. Pain management per Dr. Simpson. 9. We will monitor her labs and any further dizzy spells. 10. The patient can be out of bed up only with assistance. 11. Regular diet 12. Monitor her intake and output as well as percentage of food Eaten. 13. The patient is full code, full aggressive care. 14. We will monitor her further needs. Dictated by JHON Justin MD MYLES Martell/MARITA /8:44 AM /10:31 AM
[2016-08-13 10:56] VITALS: BP 132/65; PULSE 78; RESP 16; O2SAT 98
--- NOTE | 2016-08-13 11:04 | HP.UPD ---
H&P Update Note This is a 56-year-old female well known to this facility and to the undersigned. She came in last night with episode of nausea and vomiting. She has a problem with narcotic dependence and she is been demanding Dilaudid. She appears to be stable from the medical standpoint. The vomiting has stopped. Workup so far negative. The situation was discussed at length with the patient. It was reiterated to her that it was in her best interest to stay away from any narcotics. She is not happy with this opinion however she appears to be clinically stable. So far no sign of withdrawal. She will be monitored for the rest of the day. She continues to be stable she will be discharged home later today. She has been recommended numerous times to see psychiatry as outpatient to help her get over her problem with narcotics. Full history and physical has been dictated Carmen Jo MD Aug 13, 2016 11:00
--- NOTE | 2016-08-13 12:42 | EKG ---
Date Performed: 08/12/2016 Time Performed: 16:55:24 PTAGE: 56 years EKG: SINUS BRADYCARDIA NON SPECIFIC ANTEROSEPTAL ABNORMALITY PT. NO LONGER HAS A LBBB COMPARED T O PRIOR TRACING PREVIOUS TRACING : 08/07/2016 23.15 DOCTOR: Dustin Wagner Interpretating Date/Time 08/13/2016 12:40:41
[2016-08-13] MEDS ORDERED: FAMOTIDINE 20 MG TAB PO SCH (21:00)
== END 2016-08-13 11:50 | disposition left against medical advice (07) ==
LOC: NEPC 14:52 → NEDA 19:10 → UNDOADMOB 19:10 → NEDH 19:10
PROVIDERS: ADMIT Specialist; ATTEND Specialist
DX: K31.84 Gastroparesis (principal); R55 Syncope and collapse; D64.9 Anemia, unspecified; I25.2 Old myocardial infarction; I25.10 Atherosclerotic heart disease of native coronary artery without angina pectoris; G43.909 Migraine, unspecified, not intractable, without status migrainosus; Z87.01 Personal history of pneumonia (recurrent); G89.29 Other chronic pain; K44.9 Diaphragmatic hernia without obstruction or gangrene; Z88.1 Allergy status to other antibiotic agents; Z88.0 Allergy status to penicillin; Z85.528 Personal history of other malignant neoplasm of kidney; Z86.73 Personal history of transient ischemic attack (TIA), and cerebral infarction without residual deficits; Z88.2 Allergy status to sulfonamides; Z88.8 Allergy status to other drugs, medicaments and biological substances
CPT/HCPCS: 70450; 80048; 80053; 82550; 82552; 83735; 84484; 85025; 93005; 96374; 99285; G0378; J1644; J2060; J7030

== ENCOUNTER 2016-08-31 12:48 | Emergency (ER) | payer BC ==
[~2016-08-31] VITALS: Ht 157.5 cm; Wt 42.0 kg
[2016-08-31 12:49] VITALS: BP 137/85; PULSE 91; RESP 15; TEMP 97.8; O2SAT 99
--- NOTE | 2016-08-31 15:19 | PD ---
HPI Chief Complaint: Abdominal Pain Time Seen by Provider: 15:10 Travel History International Travel<30 days: No Contact w/Intl Traveler<30days: No Traveled to known affect area: No History of Present Illness HPI This is a 56-year-old female with history of total gastrectomy, gastroparesis, chronic abdominal pain who presents for evaluation of abdominal pain. Symptoms started 3 days ago. She describes it as a aching pain in the epigastrium which is constant with no aggravating or relieving factors. Associated with vomiting and dry heaves. She reports a 10 pound weight loss over the past month. She takes 4 mg of Dilaudid every 4 hours for pain control. She is allergic to most typical antiemetics and so she is prescribed Valium for nausea. She reports that her primary care physician is Dr. Hoover. She reports that she was recently treated for urinary tract infection and she is not currently expressing any dysuria or increased urinary frequency. This patient has been seen here multiple times in the past with similar complaints. Most recently she was seen here on August 12, admitted for evaluation of intractable nausea and vomiting and syncope and she left AMA per chart review. She has no other complaints. PFSH Past Medical History Hx Anticoagulant Therapy: No Asthma: No Blood Disorders: No Anxiety: Yes Depression: No Heart Rhythm Problems: No Cancer: Yes (kidney) Cardiovascular Problems: Yes (MT) High Cholesterol: No Chemotherapy: Yes (KIDNEY ) Chest Pain: No Congestive Heart Failure: No COPD: No Cerebrovascular Accident: Yes Diabetes: No Diminished Hearing: No Endocrine: No Gastrointestinal Disorders: Yes GERD: No Genitourinary: Yes (RIGHT NEPHRECTOMY) Headaches: Yes Hiatal Hernia: Yes Hypertension: No Immune Disorder: No Implanted Vascular Access Dvce: No Kidney Stones: No Musculoskeletal: No Neurologic: No Psychiatric: No Reproductive: No Respiratory: No Immunizations Current: Yes Migraines: Yes Myocardial Infarction: Yes (2005) Pneumonia: Yes Radiation Therapy: No Renal Failure: No Seizures: Yes Sleep Apnea: No Thyroid Disease: No Ulcer: No ?: Not Menopausal: Yes : 1 Para: 1 Miscarriage: 0 : 0 Ectopic : No Ovarian Cysts: No Dilation and Curettage (D&C): Yes Tubal Ligation: Yes Past Surgical History Abdominal Surgery: Yes (total gastrectomy w/pouch 2002, hernia repair) Appendectomy: Yes Cardiac Surgery: Yes (pt states an occulator was placed in her heart 2005) Cholecystectomy: Yes Gynecologic Surgery: Yes Hysterectomy: Yes Thoracic Surgery: No Tonsillectomy: Yes Other Surgery: Yes (tot gastrectomy) Social History Alcohol Use: No Tobacco Use: No Substance Use: No Allergies-Medications (Allergen,Severity, Reaction): Coded Allergies: Compazine (Verified Allergy, Severe, SOB, 08/31/16) Gadolinium Derivatives (Verified Allergy, Severe, RESPIRATORY DISTRESS, ) Lobster (Verified Allergy, Severe, Anaphylaxis, 08/31/16) Morphine (Verified Allergy, Severe, Hives, 08/31/16) PT HAVING HIVES AND ITCHING TO ARM ABOVE IV SITE AFTER ADMINISTRATION OF MORPHINE Phenergan (Verified Allergy, Severe, SOB, 08/31/16) Reglan (Verified Allergy, Severe, SOB, 08/31/16) Toradol (Verified Allergy, Severe, Shortness of Breath, 08/31/16) Zofran (Verified Allergy, Severe, SOB, 08/31/16) Tigan (Verified Allergy, Intermediate, 08/31/16) difficult breathing Penicillin (Verified Allergy, Mild, RASH, 08/31/16) Sulfa (Verified Allergy, Mild, RASH, 08/31/16) Uncoded Allergies: GADOLINIUM (Adverse Reaction, Severe, PT STOPPED BREATHING WITH GADO, ) PT STATES SHE STOPPED BREATHING AFTER HAVING GADO AT ANOTHER FACILITY. 06/23/16 [facility] Reported Meds & Prescriptions Reported Meds & Active Scripts Active Erythromycin Ethylsuccinate Liq (Erythromycin Ethylsuccinate) 200 Mg/Ml Susp 200 Mg PO Q8H Reported Ambien (Zolpidem Tartrate) 10 Mg Tab 10 Mg PO HS PRN Dilaudid (Hydromorphone HCl) 4 Mg Tab 4 Mg PO Q6H PRN Valium (Diazepam) 10 Mg Tab 10 Mg PO TID Buspirone (Buspirone HCl) 7.5 Mg Tab 7.5 Mg PO BID Zyprexa (Olanzapine) 5 Mg Tab 5 Mg PO BID Cyanocobalamin Inj (Cyanocobalamin) 1,000 Mcg/Ml Inj 1,000 Mcg IM Q30D Imipramine HCL (Imipramine HCl) 25 Mg Tab 25 Mg PO HS Review of Systems Except as stated in HPI: all other systems reviewed are Neg Physical Exam Narrative GENERAL: This is an anxious appearing cachectic female who is in no acute distress. SKIN: Warm and dry. HEAD: Atraumatic. Normocephalic. EYES: Pupils equal and round. No scleral icterus. No injection or drainage. ENT: No nasal bleeding or discharge. Mucous membranes pink and moist. NECK: Trachea midline. No JVD. CARDIOVASCULAR: Regular rate and rhythm. No murmur appreciated. RESPIRATORY: No accessory muscle use. Clear to auscultation. Breath sounds equal bilaterally. GASTROINTESTINAL: Abdomen soft, generalized periumbilical and epigastric tenderness without guarding. MUSCULOSKELETAL: No obvious deformities. No edema. NEUROLOGICAL: Awake and alert. No obvious cranial nerve deficits. Motor grossly within normal limits. Normal speech. Data Data Last Documented VS Vital Signs Date Time Temp Pulse Resp B/P Pulse Ox O2 Delivery O2 Flow Rate FiO2 08/31/16 16:18 89 16 194/100 100 Room Air 08/31/16 12:49 97.8 Orders Complete Blood Count With Diff (08/31/16 15:16) Comprehensive Metabolic Panel (08/31/16 15:16) Lipase (08/31/16 15:16) Urinalysis - C+S If Indicated (08/31/16 15:16) Lipase (08/31/16 16:19) Iv Access Insert/Monitor (08/31/16 16:19) Ecg Monitoring (08/31/16 16:19) Oximetry (08/31/16 16:19) Sodium Chlor 0.9% 1000 Ml Inj (Ns 1000 M (08/31/16 16:19) Sodium Chloride 0.9% Flush (Ns Flush) (08/31/16 16:30) Famotidine Inj (Pepcid Inj) (08/31/16 16:30) Lorazepam Inj (Ativan Inj) (08/31/16 16:30) Diphenhydramine Inj (Benadryl Inj) (08/31/16 16:30) Labs Laboratory Tests Test 08/31/16 15:50 Urine Color YELLOW Urine Turbidity HAZY Urine pH 6.0 Urine Specific [place] 1.039 Urine Protein 30 mg/dL Urine Glucose (UA) NEG mg/dL Urine Ketones 10 mg/dL Urine Occult Blood NEG Urine Nitrite NEG Urine Bilirubin NEG Urine Urobilinogen LESS THAN 2.0 MG/DL Urine Leukocyte Esterase NEG Urine RBC 5 /hpf Urine WBC 3 /hpf Urine Squamous Epithelial 4 /hpf Cells Urine Calcium Oxalate Crystals MOD /hpf Urine Mucus FEW /lpf Microscopic Urinalysis Comment CULT NOT INDICATED MDM Medical Decision Making Medical Screen Exam Complete: Yes Emergency Medical Condition: Yes Medical Record Reviewed: Yes Differential Diagnosis Chronic abdominal pain, gastroparesis, pancreatitis, bowel obstruction, dehydration Narrative Course 56 year old female with history of chronic abdominal pain, gastroparesis, and Dilaudid and Valium at home for pain and nausea. She presents with 3 days of worsening epigastric pain, nausea and vomiting. This patient was initially seen in triage where lab work has been ordered. The patient will be moved to a medical bed one becomes available. Nestor Martinez Aug 31, 2016 15:19
[2016-08-31 16:18] VITALS: BP 194/100; PULSE 89; RESP 16; O2SAT 100
[2016-08-31] MEDS ORDERED: SODIUM CHLOR 0.9% 1000 ML INJ 1,000 ML IV SCH (16:19)
[2016-08-31 16:26] LABS: BLOOD, URINE NEG (NEG); CALCIUM OXALATE CRYSTALS,URINE MOD /hpf; COMMENT (UR) CULT NOT INDICATED; CULTURE IF INDICATED CULT NOT INDICATED; GLUCOSE,URINE NEG (NEG); KETONE, URINE 10 mg/dL (NEG); MUCUS URINE FEW /lpf (OCC); NITRITE,URINE NEG (NEG); SQUAMOUS EPITHELIAL CELL URINE 4 /hpf (0-5); URINE COLOR YELLOW (YELLW/STRAW)
[2016-08-31] MEDS ORDERED: SODIUM CHLORIDE 0.9% FLUSH 10 ML FLUSH IV FLUSH PRN (16:30)
[2016-08-31] MEDS ORDERED: FAMOTIDINE 20 MG/2 ML VIAL IV PUSH ONE (16:30)
[2016-08-31] MEDS ORDERED: diphenhydrAMINE HCL 50 MG/ML VIAL IV PUSH ONE (16:30)
[2016-08-31] MEDS ORDERED: LORazepam 2 MG/ML VIAL IV PUSH ONE (16:30)
--- NOTE | 2016-08-31 16:30 | PD ---
Physical Exam Date Seen by Provider: Aug 31, 2016 Time Seen by Provider: 16:28 Narrative The patient is a 56-year-old female was initially evaluated by the mid-level provider. Please refer to the initial history, physical, diagnostic evaluation , treatment modality plan. Data Data Last Documented VS Vital Signs Date Time Temp Pulse Resp B/P Pulse Ox O2 Delivery O2 Flow Rate FiO2 08/31/16 16:18 89 16 194/100 100 Room Air 08/31/16 12:49 97.8 Orders Complete Blood Count With Diff (08/31/16 15:16) Comprehensive Metabolic Panel (08/31/16 15:16) Lipase (08/31/16 15:16) Urinalysis - C+S If Indicated (08/31/16 15:16) Iv Access Insert/Monitor (08/31/16 16:19) Ecg Monitoring (08/31/16 16:19) Oximetry (08/31/16 16:19) Sodium Chlor 0.9% 1000 Ml Inj (Ns 1000 M (08/31/16 16:19) Sodium Chloride 0.9% Flush (Ns Flush) (08/31/16 16:30) Famotidine Inj (Pepcid Inj) (08/31/16 16:30) Lorazepam Inj (Ativan Inj) (08/31/16 16:30) Diphenhydramine Inj (Benadryl Inj) (08/31/16 16:30) Labs Laboratory Tests Test 08/31/16 08/31/16 15:50 17:00 Urine Color YELLOW Urine Turbidity HAZY Urine pH 6.0 Urine Specific [place] 1.039 Urine Protein 30 mg/dL Urine Glucose (UA) NEG mg/dL Urine Ketones 10 mg/dL Urine Occult Blood NEG Urine Nitrite NEG Urine Bilirubin NEG Urine Urobilinogen LESS THAN 2.0 MG/DL Urine Leukocyte Esterase NEG Urine RBC 5 /hpf Urine WBC 3 /hpf Urine Squamous Epithelial 4 /hpf Cells Urine Calcium Oxalate Crystals MOD /hpf Urine Mucus FEW /lpf Microscopic Urinalysis Comment CULT NOT INDICATED White Blood Count 4.4 TH/MM3 Red Blood Count 4.20 MIL/MM3 Hemoglobin 11.1 GM/DL Hematocrit 35.0 % Mean Corpuscular Volume 83.3 FL Mean Corpuscular Hemoglobin 26.5 PG Mean Corpuscular Hemoglobin 31.8 % Concent Red Cell Distribution Width 16.7 % Platelet Count 175 TH/MM3 Mean Platelet Volume 9.8 FL Neutrophils (%) (Auto) 67.4 % Lymphocytes (%) (Auto) 25.6 % Monocytes (%) (Auto) 6.8 % Eosinophils (%) (Auto) 0.2 % Basophils (%) (Auto) 0.0 % Neutrophils # (Auto) 2.9 TH/MM3 Lymphocytes # (Auto) 1.1 TH/MM3 Monocytes # (Auto) 0.3 TH/MM3 Eosinophils # (Auto) 0.0 TH/MM3 Basophils # (Auto) 0.0 TH/MM3 CBC Comment DIFF FINAL Differential Comment Sodium Level 140 MEQ/L Potassium Level 3.1 MEQ/L Chloride Level 105 MEQ/L Carbon Dioxide Level 26.5 MEQ/L Anion Gap 9 MEQ/L Blood Urea Nitrogen 14 MG/DL Creatinine 0.67 MG/DL Estimat Glomerular Filtration 91 ML/MIN Rate Random Glucose 103 MG/DL Calcium Level 9.2 MG/DL Total Bilirubin 0.4 MG/DL Aspartate Amino Transf 9 U/L (AST/SGOT) Alanine Aminotransferase 16 U/L (ALT/SGPT) Alkaline Phosphatase 86 U/L Total Protein 6.7 GM/DL Albumin 3.8 GM/DL Lipase 207 U/L [facility] Medical Record Reviewed: Yes Supervised Visit with AGNES: Yes Interpretation(s) Laboratory Tests Test 08/31/16 08/31/16 15:50 17:00 Urine Color YELLOW Urine Turbidity HAZY Urine pH 6.0 Urine Specific [place] 1.039 Urine Protein 30 mg/dL Urine Glucose (UA) NEG mg/dL Urine Ketones 10 mg/dL Urine Occult Blood NEG Urine Nitrite NEG Urine Bilirubin NEG Urine Urobilinogen LESS THAN 2.0 MG/DL Urine Leukocyte Esterase NEG Urine RBC 5 /hpf Urine WBC 3 /hpf Urine Squamous Epithelial 4 /hpf Cells Urine Calcium Oxalate Crystals MOD /hpf Urine Mucus FEW /lpf Microscopic Urinalysis Comment CULT NOT INDICATED White Blood Count 4.4 TH/MM3 Red Blood Count 4.20 MIL/MM3 Hemoglobin 11.1 GM/DL Hematocrit 35.0 % Mean Corpuscular Volume 83.3 FL Mean Corpuscular Hemoglobin 26.5 PG Mean Corpuscular Hemoglobin 31.8 % Concent Red Cell Distribution Width 16.7 % Platelet Count 175 TH/MM3 Mean Platelet Volume 9.8 FL Neutrophils (%) (Auto) 67.4 % Lymphocytes (%) (Auto) 25.6 % Monocytes (%) (Auto) 6.8 % Eosinophils (%) (Auto) 0.2 % Basophils (%) (Auto) 0.0 % Neutrophils # (Auto) 2.9 TH/MM3 Lymphocytes # (Auto) 1.1 TH/MM3 Monocytes # (Auto) 0.3 TH/MM3 Eosinophils # (Auto) 0.0 TH/MM3 Basophils # (Auto) 0.0 TH/MM3 CBC Comment DIFF FINAL Differential Comment Sodium Level 140 MEQ/L Potassium Level 3.1 MEQ/L Chloride Level 105 MEQ/L Carbon Dioxide Level 26.5 MEQ/L Anion Gap 9 MEQ/L Blood Urea Nitrogen 14 MG/DL Creatinine 0.67 MG/DL Estimat Glomerular Filtration 91 ML/MIN Rate Random Glucose 103 MG/DL Calcium Level 9.2 MG/DL Total Bilirubin 0.4 MG/DL Aspartate Amino Transf 9 U/L (AST/SGOT) Alanine Aminotransferase 16 U/L (ALT/SGPT) Alkaline Phosphatase 86 U/L Total Protein 6.7 GM/DL Albumin 3.8 GM/DL Lipase 207 U/L Differential Diagnosis Differential diagnosis includes chronic abdominal pain, gastritis, peptic ulcer disease, pancreatitis, drug-seeking behavior, malingering, dehydration. Narrative Course I, Dr. Paige, have reviewed the advance practice practitioner's documentation and am in agreement, met with the patient face to face, made the diagnosis, and the medical decision making was done by me. *My assessment and Findings: The patient is a 56-year-old female was initially evaluated by the mid-level provider. Please refer to the initial history, physical, diagnostic evaluation, treatment modality plan. The patient states she has a history of gastrectomy that was performed at 2002 in [place], [place], for chronic aspiration. The patient notes a history of chronic abdominal pain with multiple admissions. The patient has a list of allergies to medications including Compazine, morphine, Phenergan, Reglan, sulfa, Tigan, Toradol, and Zofran. The patient routinely requests Benadryl, Ativan and Dilaudid for her pain. I had a discussion with the patient regarding her multiple visits and imaging in the past. 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 The patient was comfortable with this plan of care. The patient's potassium is mildly low at 3.1, therefore, was replaced intravenously as she has persistent nausea and vomiting. The patient be discharged home and is advised to follow-up with her primary physician and/or highway safety engineer. Diagnosis Primary Impression: Chronic abdominal pain Additional Impression: Gastroparesis Patient Instructions: General Instructions Additional Instruction: Follow-up with her primary physician and/or highway safety engineer. Return if symptoms worsen or progress. Clear liquid diet and advance as tolerated. Disposition: DISCHARGE HOME Condition: Stable John Paige MD Aug 31, 2016 16:30
[2016-08-31 17:14] LABS: AUTOMATED NEUTROPHIL # 2.9 TH/MM3 (1.8-7.7); EOSINOPHIL % 0.2 % (0.0-4.0); HEMO FLAGS DIFF FINAL; LYMPH % 25.6 % (9.0-44.0); LYMPHOCYTE # 1.1 TH/MM3 (1.0-4.8); MEAN CELL VOLUME 83.3 FL (80.0-100.0); MEAN CORPUSCULAR HEMOGLOBIN 26.5 PG (27.0-34.0); MEAN CORPUSCULAR HGB CONC 31.8 % (32.0-36.0); MONO % 6.8 % (0.0-8.0); NEUT % 67.4 % (16.0-70.0); PLATELET COUNT 175 TH/MM3 (150-450); RED CELL DISTRIBUTION WIDTH 16.7 % (11.6-17.2); WHITE BLOOD COUNT 4.4 TH/MM3 (4.0-11.0)
[2016-08-31 17:32] LABS: ANION GAP 9 MEQ/L (5-15); AST (GOT) 9 U/L (15-37); BICARBONATE 26.5 MEQ/L (21.0-32.0); BLOOD UREA NITROGEN 14 MG/DL (7-18); CHLORIDE 105 MEQ/L (98-107); GLOMERULAR FILTRATION RATE 91 ML/MIN (>89); POTASSIUM 3.1 MEQ/L (3.5-5.1); SODIUM (NA) 140 MEQ/L (136-145)
[2016-08-31 17:36] LABS: ALKALINE PHOSPHATASE 86 U/L (45-117); ALT (GPT) 16 U/L (10-53); TOTAL BILIRUBIN ADULT 0.4 MG/DL (0.2-1.0)
[2016-08-31] MEDS ORDERED: POTASSIUM CHLOR 20 MEQ PREMIX 100 ML IV ONE (17:45)
[2016-08-31] MEDS ORDERED: HYDROmorphone HCL 4 MG TAB PO ONE (17:45)
[2016-08-31 18:28] VITALS: BP 162/92; PULSE 87; RESP 16; O2SAT 100
[2016-08-31 19:08] VITALS: BP 156/92; PULSE 93; RESP 16; TEMP 98.8; O2SAT 99
[2016-08-31 19:59] VITALS: BP 156/92
== END 2016-08-31 20:03 | disposition home or self-care (01) ==
LOC: NEPE 12:48
DX: R10.13 Epigastric pain (principal); G89.29 Other chronic pain; K31.84 Gastroparesis
CPT/HCPCS: 80053; 81001; 83690; 85025; 96361; 96374; 96375; 99284; J1200; J2060; J3480; J7030

== ENCOUNTER 2016-09-06 09:27 | Emergency (ER) | payer BC ==
[~2016-09-06] VITALS: Ht 157.5 cm; Wt 45.0 kg
[2016-09-06 09:33] VITALS: BP 134/70; PULSE 86; RESP 18; TEMP 97.8; O2SAT 100
[2016-09-06 09:41] VITALS: BP 129/74; PULSE 87; RESP 16; TEMP 98.2; O2SAT 98
[2016-09-06] MEDS ORDERED: DICYCLOMINE HCL 20 MG/2 ML VIAL IM ONE (10:15)
[2016-09-06] MEDS ORDERED: diphenhydrAMINE HCL 50 MG/ML VIAL IV PUSH ONE (10:15)
[2016-09-06] MEDS ORDERED: LORazepam 2 MG/ML VIAL IV PUSH ONE (10:15)
[2016-09-06] MEDS ORDERED: PROCHLORPERAZINE INJ 10 MG/2 ML VIAL IM ONE (10:15)
[2016-09-06] MEDS ORDERED: ACETAMINOPHEN 1000 MG/100 ML VIAL IV ONE (10:15)
[2016-09-06] MEDS ORDERED: SODIUM CHLOR 0.9% 1000 ML INJ 1,000 ML IV ONE ×2 (11:00)
--- NOTE | 2016-09-06 11:03 | PD ---
HPI Chief Complaint: Abdominal Pain Time Seen by Provider: 09:53 Travel History International Travel<30 days: No Contact w/Intl Traveler<30days: No Traveled to known affect area: No History of Present Illness HPI 56-year-old woman, well-known to the emergency department, presents to the emergency department complaining of abdominal pain. She has a history of chronic recurrent abdominal pain. She is a previous gastrectomy. She states today is "worse than its ever been". She reports vomiting, feeling lightheaded and dizzy. She states she couldn't keep her Dilaudid down this morning. History Past Medical History Narrative Medical Per patient Previous gastrectomy History of kidney CA History of CVA CAD, [place] Menopausal: Yes : 1 Para: 1 Dilation and Curettage (D&C): Yes Social History Alcohol Use: No Tobacco Use: No Allergies-Medications (Allergen,Severity, Reaction): Coded Allergies: Compazine (Verified Allergy, Severe, SOB, 08/31/16) Gadolinium Derivatives (Verified Allergy, Severe, RESPIRATORY DISTRESS, ) Lobster (Verified Allergy, Severe, Anaphylaxis, 08/31/16) Morphine (Verified Allergy, Severe, Hives, 08/31/16) PT HAVING HIVES AND ITCHING TO ARM ABOVE IV SITE AFTER ADMINISTRATION OF MORPHINE Phenergan (Verified Allergy, Severe, SOB, 08/31/16) Reglan (Verified Allergy, Severe, SOB, 08/31/16) Toradol (Verified Allergy, Severe, Shortness of Breath, 08/31/16) Zofran (Verified Allergy, Severe, SOB, 08/31/16) Tigan (Verified Allergy, Intermediate, 08/31/16) difficult breathing Penicillin (Verified Allergy, Mild, RASH, 08/31/16) Sulfa (Verified Allergy, Mild, RASH, 08/31/16) Uncoded Allergies: GADOLINIUM (Adverse Reaction, Severe, PT STOPPED BREATHING WITH GADO, ) PT STATES SHE STOPPED BREATHING AFTER HAVING GADO AT ANOTHER FACILITY. 06/23/16 [facility] Reported Meds & Prescriptions Reported Meds & Active Scripts Active Reported Ambien (Zolpidem Tartrate) 10 Mg Tab 10 Mg PO HS PRN Dilaudid (Hydromorphone HCl) 4 Mg Tab 4 Mg PO Q6H PRN Valium (Diazepam) 10 Mg Tab 10 Mg PO TID Buspirone (Buspirone HCl) 7.5 Mg Tab 7.5 Mg PO BID Zyprexa (Olanzapine) 5 Mg Tab 5 Mg PO BID Cyanocobalamin Inj (Cyanocobalamin) 1,000 Mcg/Ml Inj 1,000 Mcg IM Q30D Imipramine HCL (Imipramine HCl) 25 Mg Tab 25 Mg PO HS Review of Systems Except as stated in HPI: all other systems reviewed are Neg Physical Exam Narrative GENERAL: 56-year-old woman, no acute distress. No active vomiting now. SKIN: Focused skin assessment warm/dry. NECK: Trachea midline. No JVD. CARDIOVASCULAR: Regular rate and rhythm. No murmur appreciated. RESPIRATORY: No accessory muscle use. Clear to auscultation. Breath sounds equal bilaterally. GASTROINTESTINAL: Abdomen is flat and soft. Moderate diffuse tenderness. MUSCULOSKELETAL: No obvious deformities. No clubbing. No cyanosis. No edema. NEUROLOGICAL: Awake and alert. No obvious cranial nerve deficits. Motor grossly within normal limits. Normal speech. PSYCHIATRIC: Anxious. Data Data Last Documented VS Vital Signs Date Time Temp Pulse Resp B/P Pulse Ox O2 Delivery O2 Flow Rate FiO2 09/06/16 09:41 98.2 87 16 129/74 98 Orders Complete Blood Count With Diff (09/06/16 10:10) Comprehensive Metabolic Panel (09/06/16 10:10) Lipase (09/06/16 10:10) Iv Access Insert/Monitor (09/06/16 10:10) Prochlorperazine Inj (Compazine Inj) (09/06/16 10:15) Diphenhydramine Inj (Benadryl Inj) (09/06/16 10:15) Lorazepam Inj (Ativan Inj) (09/06/16 10:15) Acetaminophen Inj (Ofirmev Inj) (09/06/16 10:15) Dicyclomine Inj (Bentyl Inj) (09/06/16 10:15) Sodium Chlor 0.9% 1000 Ml Inj (Ns 1000 M (09/06/16 11:00) Sodium Chlor 0.9% 1000 Ml Inj (Ns 1000 M (09/06/16 11:00) Naproxen (Naprosyn) (09/06/16 11:45) Haloperidol Inj (Haldol Inj) (09/06/16 12:00) Labs Laboratory Tests Test 09/06/16 10:25 White Blood Count 3.2 TH/MM3 Red Blood Count 4.29 MIL/MM3 Hemoglobin 11.7 GM/DL Hematocrit 36.5 % Mean Corpuscular Volume 85.1 FL Mean Corpuscular Hemoglobin 27.2 PG Mean Corpuscular Hemoglobin 31.9 % Concent Red Cell Distribution Width 17.9 % Platelet Count 218 TH/MM3 Mean Platelet Volume 9.8 FL Neutrophils (%) (Auto) 50.4 % Lymphocytes (%) (Auto) 37.7 % Monocytes (%) (Auto) 10.2 % Eosinophils (%) (Auto) 1.6 % Basophils (%) (Auto) 0.1 % Neutrophils # (Auto) 1.6 TH/MM3 Lymphocytes # (Auto) 1.2 TH/MM3 Monocytes # (Auto) 0.3 TH/MM3 Eosinophils # (Auto) 0.1 TH/MM3 Basophils # (Auto) 0.0 TH/MM3 CBC Comment DIFF FINAL Differential Comment Sodium Level 140 MEQ/L Potassium Level 4.1 MEQ/L Chloride Level 112 MEQ/L Carbon Dioxide Level 20.5 MEQ/L Anion Gap 8 MEQ/L Blood Urea Nitrogen 19 MG/DL Creatinine 0.88 MG/DL Estimat Glomerular Filtration 66 ML/MIN Rate Random Glucose 66 MG/DL Calcium Level 9.1 MG/DL Total Bilirubin 0.3 MG/DL Aspartate Amino Transf 12 U/L (AST/SGOT) Alanine Aminotransferase 16 U/L (ALT/SGPT) Alkaline Phosphatase 94 U/L Total Protein 7.3 GM/DL Albumin 4.1 GM/DL Lipase 268 U/L [facility] Medical Decision Making Medical Screen Exam Complete: Yes Emergency Medical Condition: Yes Interpretation(s) LABS: CBC is unremarkable. CMP is unremarkable Lipase is normal. Differential Diagnosis Acute recurrent abdominal pain, obstruction, dehydration, other Narrative Course Medical decision making INITIAL: This a 56-year-old woman who presents to the emergency Department with chronic recurrent abdominal pain. We'll check labs. We'll give IV fluids. She labs a couple days ago that were normal. She is here because couple days for the same symptoms. Avoid IV opiates. She has multiple allergies. FINAL: Labs are unremarkable. Patient unchanged from previous interactions. Still states "can't I just get 1 shot of Dilaudid". She treats her symptoms with Dilaudid and Valium. States she is allergic to any other medications. I told her that I thought that she would do best by avoiding opiates in the future. We'll give her prescription for Unisom. Diagnosis Primary Impression: Chronic abdominal pain Additional Impression: Nausea and vomiting Qualified Code: R11.2 - Non-intractable vomiting with nausea, unspecified vomiting type Additional Instructions: Continue current medications. Follow-up with your primary doctor in the next one to 2 days. Return to the emergency department for any new or worsening symptoms. Med/Other Pt SpecificInfo: Prescription(s) given Scripts Diphenhydramine 25 Mg Cap25 Mg PO Q6H PRN (NAUSEA OR VOMITING) #12 CAP Ref 0 Prov:Ranulfo Jerez MD 09/06/16 Disposition: 01 DISCHARGE HOME Condition: Stable Ranulfo Jerez MD Sep 06, 2016 11:03
[2016-09-06 11:04] LABS: AUTOMATED NEUTROPHIL # 1.6 TH/MM3 (1.8-7.7); BASOPHIL % 0.1 % (0.0-2.0); EOSINOPHIL # 0.1 TH/MM3 (0-0.4); EOSINOPHIL % 1.6 % (0.0-4.0); HEMATOCRIT 36.5 % (35.0-46.0); HEMO FLAGS DIFF FINAL; LYMPH % 37.7 % (9.0-44.0); LYMPHOCYTE # 1.2 TH/MM3 (1.0-4.8); MEAN CELL VOLUME 85.1 FL (80.0-100.0); MEAN CORPUSCULAR HEMOGLOBIN 27.2 PG (27.0-34.0); MEAN CORPUSCULAR HGB CONC 31.9 % (32.0-36.0); MONO % 10.2 % (0.0-8.0); NEUT % 50.4 % (16.0-70.0); PLATELET COUNT 218 TH/MM3 (150-450); RED BLOOD COUNT 4.29 MIL/MM3 (4.00-5.30); RED CELL DISTRIBUTION WIDTH 17.9 % (11.6-17.2); WHITE BLOOD COUNT 3.2 TH/MM3 (4.0-11.0)
[2016-09-06 11:21] LABS: ALKALINE PHOSPHATASE 94 U/L (45-117); TOTAL BILIRUBIN ADULT 0.3 MG/DL (0.2-1.0)
[2016-09-06 11:23] LABS: ALT (GPT) 16 U/L (10-53); ANION GAP 8 MEQ/L (5-15); AST (GOT) 12 U/L (15-37); BICARBONATE 20.5 MEQ/L (21.0-32.0); BLOOD UREA NITROGEN 19 MG/DL (7-18); CHLORIDE 112 MEQ/L (98-107); GLOMERULAR FILTRATION RATE 66 ML/MIN (>89); POTASSIUM 4.1 MEQ/L (3.5-5.1); SODIUM (NA) 140 MEQ/L (136-145)
[2016-09-06] MEDS ORDERED: NAPROXEN 500 MG TAB PO ONE (11:45)
[2016-09-06] MEDS ORDERED: HALOPERIDOL LACTATE 5 MG/ML AMP IV PUSH ONE (12:00)
[2016-09-06] MEDS ORDERED: DIPH25CA PO (12:49)
== END 2016-09-06 13:29 | disposition home or self-care (01) ==
LOC: NEPC 09:27
DX: R10.84 Generalized abdominal pain (principal); R11.2 Nausea with vomiting, unspecified; I25.2 Old myocardial infarction
CPT/HCPCS: 80053; 83690; 85025; 96372; 96374; 96375; 99283; J0131; J0500; J1200; J1630; J2060; J7030

== ENCOUNTER 2016-09-07 14:46 | Emergency (ER) | payer BC ==
[~2016-09-07] VITALS: Ht 157.5 cm; Wt 41.5 kg
[~2016-09-07 14:46] MED LIST changes: +DIPH25CA PO
[2016-09-07 14:49] VITALS: BP 134/85; PULSE 106; RESP 24; TEMP 98.5; O2SAT 99
--- NOTE | 2016-09-07 16:13 | PD ---
Physical Exam Date Seen by Provider: Sep 07, 2016 Time Seen by Provider: 16:09 Narrative 56 YOWF C/O SEVERE ABD PAIN ,N/V. CHRONIC ABD PAIN WORSE 3 DAYS. SEEN YEST FOR SAME. H/O DC AND CVA. H/O BOWEL OBSTRUCTION MILD INCREASE HR. AWAITING BED PLACEMENT. Data Data Last Documented VS Vital Signs Date Time Temp Pulse Resp B/P Pulse Ox O2 Delivery O2 Flow Rate FiO2 09/07/16 14:49 98.5 106 24 134/85 [address] [facility] Medical Record Reviewed: Yes Supervised Visit with AGNES: Yes Ankit Dominguez Sep 07, 2016 16:13
== END 2016-09-07 17:45 | disposition left against medical advice (07) ==
LOC: NED 14:46
DX: R10.9 Unspecified abdominal pain (principal)
CPT/HCPCS: 99283

== ENCOUNTER 2016-09-08 07:43 | Emergency (ER) | payer BC ==
[~2016-09-08 07:43] MED LIST changes: -ERYT1SUS5 PO
[2016-09-08 07:46] VITALS: BP 146/78; PULSE 87; RESP 12; TEMP 98; O2SAT 100
[2016-09-08] MEDS ORDERED: LORazepam 2 MG/ML VIAL IM ONE (08:15)
--- NOTE | 2016-09-08 09:37 | RADRPT ---
EXAM DATE/TIME: 09/08/2016 08:30 [place] COMPARISON: ABDOMEN FLAT & UPRIGHT, December 15, 2015, 14:26. INDICATIONS : Vomitting MEDICAL HISTORY : Cerebrovascular disease. Seizures. Cardiovascular diseaseKidney cancer SURGICAL HISTORY : Appendectomy. Cholecystectomy.Hysterectomy ENCOUNTER: Initial ACUITY: 1 day PAIN SCORE: 10/10 LOCATION: Bilateral Abdomen FINDINGS: The bowel gas pattern appears normal. No free air is identified. No organomegaly is evident. There ar e numerous surgical clips in the right renal fossa. A staple line is also present left-sided abdomen. CONCLUSION: 1. No evidence of obstruction Edson Mahan MD on September 08, 2016 at 9:34 Board Certified Radiologist. This report was verified electronically.
--- NOTE | 2016-09-08 09:44 | PD ---
HPI Chief Complaint: Abdominal Pain Time Seen by Provider: 07:54 Travel History International Travel<30 days: No Contact w/Intl Traveler<30days: No Traveled to known affect area: No History of Present Illness HPI 56-year-old female came to the emergency room with history of vomiting and abdominal pain since past 4 days. Patient has history of chronic abdominal pain. She has history of gastrectomy done many years ago and now she has a poorly functioning pouch which was discovered by gastric emptying study. Vital signs are stable here. Patient says she's been unable to keep anything down and feels dehydrated. However she is not tachycardic and blood pressure is good. Does seem pretty anxious. She says she has a primary care but is thinking of changing her primary care this week. [facility] Past Medical History Narrative Medical List of her past medical, surgical, social and family history was reviewed from the nursing note. Hx Anticoagulant Therapy: No Asthma: No Blood Disorders: No Anxiety: Yes Depression: No Heart Rhythm Problems: No Cancer: Yes (kidney) Cardiovascular Problems: Yes ([place]) High Cholesterol: No Chemotherapy: Yes (KIDNEY ) Chest Pain: No Congestive Heart Failure: No COPD: No Cerebrovascular Accident: Yes Diabetes: No Diminished Hearing: No Endocrine: No Gastrointestinal Disorders: Yes GERD: No Genitourinary: Yes (RIGHT NEPHRECTOMY) Headaches: Yes Hiatal Hernia: Yes Hypertension: No Immune Disorder: No Implanted Vascular Access Dvce: No Kidney Stones: No Musculoskeletal: No Neurologic: No Psychiatric: No Reproductive: No Respiratory: No Immunizations Current: Yes Migraines: Yes Myocardial Infarction: Yes (2006) Pneumonia: Yes Radiation Therapy: No Renal Failure: No Seizures: Yes Sleep Apnea: No Thyroid Disease: No Ulcer: No Tetanus Vaccination: < 5 Years Influenza Vaccination: Yes Menopausal: Yes : 1 Para: 1 Miscarriage: 0 : 0 Ectopic : No Ovarian Cysts: No Dilation and Curettage (D&C): Yes Tubal Ligation: Yes Past Surgical History Abdominal Surgery: Yes (total gastrectomy w/pouch 2002, hernia repair) Appendectomy: Yes Cardiac Surgery: Yes (pt states an occulator was placed in her heart 2005) Cholecystectomy: Yes Gynecologic Surgery: Yes Hysterectomy: Yes (ONLY TUBES TIED, NOT HYSTERECTOMY) Thoracic Surgery: No Tonsillectomy: Yes Other Surgery: Yes (tot gastrectomy) Social History Alcohol Use: No Tobacco Use: No Substance Use: No Allergies-Medications (Allergen,Severity, Reaction): Coded Allergies: Compazine (Verified Allergy, Severe, SOB, 09/10/16) Gadolinium Derivatives (Verified Allergy, Severe, RESPIRATORY DISTRESS, 09/10/16) Lobster (Verified Allergy, Severe, Anaphylaxis, 09/10/16) Morphine (Verified Allergy, Severe, Hives, 09/10/16) PT HAVING HIVES AND ITCHING TO ARM ABOVE IV SITE AFTER ADMINISTRATION OF MORPHINE Phenergan (Verified Allergy, Severe, SOB, 09/10/16) Reglan (Verified Allergy, Severe, SOB, 09/10/16) Toradol (Verified Allergy, Severe, Shortness of Breath, 09/10/16) Zofran (Verified Allergy, Severe, SOB, 09/10/16) Tigan (Verified Allergy, Intermediate, sob, 09/10/16) difficult breathing Penicillin (Verified Allergy, Mild, RASH, 09/10/16) Sulfa (Verified Allergy, Mild, RASH, 09/10/16) Uncoded Allergies: GADOLINIUM (Adverse Reaction, Severe, PT STOPPED BREATHING WITH GADO, ) PT STATES SHE STOPPED BREATHING AFTER HAVING GADO AT ANOTHER FACILITY. 06/23/16 V[facility] Comments List of her vast education allergy has been reviewed from the nursing note Reported Meds & Prescriptions Reported Meds & Active Scripts Active Diphenhydramine (Diphenhydramine HCl) 25 Mg Cap 25 Mg PO Q6H PRN Reported Ambien (Zolpidem Tartrate) 10 Mg Tab 10 Mg PO HS PRN Dilaudid (Hydromorphone HCl) 4 Mg Tab 4 Mg PO Q6H PRN Valium (Diazepam) 10 Mg Tab 10 Mg PO TID Buspirone (Buspirone HCl) 7.5 Mg Tab 7.5 Mg PO BID Zyprexa (Olanzapine) 5 Mg Tab 5 Mg PO BID Cyanocobalamin Inj (Cyanocobalamin) 1,000 Mcg/Ml Inj 1,000 Mcg IM Q30D Imipramine HCL (Imipramine HCl) 25 Mg Tab 25 Mg PO HS Narrative Medication List of her home medications reviewed from the nursing note. Review of Systems Except as stated in HPI: all other systems reviewed are Neg Physical Exam Narrative GENERAL: Awake, alert, anxious SKIN: Focused skin assessment warm/dry. HEAD: Atraumatic. Normocephalic. EYES: Pupils equal and round. No scleral icterus. No injection or drainage. ENT: No nasal bleeding or discharge. Mucous membranes pink and moist. NECK: Trachea midline. No JVD. CARDIOVASCULAR: Regular rate and rhythm. No murmur appreciated. RESPIRATORY: No accessory muscle use. Clear to auscultation. Breath sounds equal bilaterally. GASTROINTESTINAL: Abdomen soft, generalized tenderness and voluntary guarding, nondistended. Hepatic and splenic margins not palpable. MUSCULOSKELETAL: No obvious deformities. No clubbing. No cyanosis. No edema. NEUROLOGICAL: Awake and alert. No obvious cranial nerve deficits. Motor grossly within normal limits. Normal speech. PSYCHIATRIC: Appropriate mood and affect; insight and judgment normal. Data Data Last Documented VS Vital Signs Date Time Temp Pulse Resp B/P Pulse Ox O2 Delivery O2 Flow Rate FiO2 09/08/16 09:50 97.8 78 17 120/78 98 Orders Abdomen, Flat & Upright (09/08/16 ) Lorazepam Inj (Ativan Inj) (09/08/16 08:15) MDM Medical Decision Making Medical Screen Exam Complete: Yes Emergency Medical Condition: Yes Medical Record Reviewed: Yes Differential Diagnosis Gastritis, abdominal pain NOS, acute on chronic abdominal pain Narrative Course 9:43 AM patient is allergic to almost all antiemetics. She was given IM Ativan which she said she takes for her nausea. There was an x-ray of her abdomen done which does not show any bowel obstruction. Patient has had many imaging studies for her abdomen done in the past for her chronic abdominal pain. I am comfortable discharging her home at this point. She did not vomit in the emergency room since she came in. She needs to follow up with her primary care this point. Procedures EKG Prior to Arrival: No Diagnosis Primary Impression: acute on chronic abdominal pain Additional Impression: Nausea and vomiting Qualified Code: R11.2 - Non-intractable vomiting with nausea, unspecified vomiting type Referrals: Primary Care Physician Additional Instructions: Please follow-up with your primary care. Return to the ER if the condition worsens. Take clear diet first and then slowly advance to regular food as tolerated. Disposition: 01 DISCHARGE HOME Condition: Stable Debra Saba MD Sep 08, 2016 09:44 Debra Saba MD Sep 08, 2016 09:44
[2016-09-08 09:50] VITALS: BP 120/78; TEMP 97.8
== END 2016-09-08 09:50 | disposition home or self-care (01) ==
LOC: NEPE 07:43
DX: R10.9 Unspecified abdominal pain (principal); G89.29 Other chronic pain; R11.2 Nausea with vomiting, unspecified
CPT/HCPCS: 74020; 96372; 99284; J2060

== ENCOUNTER 2016-09-10 15:23 | Emergency (ER) | payer BC ==
[~2016-09-10] VITALS: Ht 157.5 cm; Wt 43.0 kg
[2016-09-10 15:24] VITALS: BP 132/94; PULSE 94; RESP 17; TEMP 97.7; O2SAT 98
[2016-09-10] MEDS ORDERED: SODIUM CHLOR 0.9% 1000 ML INJ 1,000 ML IV ONE (16:15)
--- NOTE | 2016-09-10 16:15 | PD ---
HPI Chief Complaint: Chest Pain Time Seen by Provider: 16:01 Travel History International Travel<30 days: No Contact w/Intl Traveler<30days: No Traveled to known affect area: No History of Present Illness HPI 56 years old female complains of abdominal pain and nausea vomiting. Patient has history of recurrent abdominal pain with nausea vomiting. Patient states that she started having increasing abdominal pain with nausea vomiting this afternoon. Patient states that she was vomiting up bile looking vomitus. Patient states that she has sharp pain on the abdomen with radiation to left sided chest this afternoon. Patient denies any coughing congestion fever chills. Patient states that she has fluttering of the heart this afternoon. Patient denies any dysuria or frequency. Patient denies any blood in the vomitus. Patient has been to the emergency room multiple times in the past with same problem. Patient also was admitted multiple times in the past with same problem. GI workup has been negative for acute process. PFSH Past Medical History Hx Anticoagulant Therapy: No Asthma: No Blood Disorders: No Anxiety: Yes Depression: No Heart Rhythm Problems: No Cancer: Yes (kidney) Cardiovascular Problems: Yes ([place]) High Cholesterol: No Chemotherapy: Yes (KIDNEY ) Chest Pain: No Congestive Heart Failure: No COPD: No Cerebrovascular Accident: Yes Diabetes: No Diminished Hearing: No Endocrine: No Gastrointestinal Disorders: Yes GERD: No Genitourinary: Yes (RIGHT NEPHRECTOMY) Headaches: Yes Hiatal Hernia: Yes Hypertension: No Immune Disorder: No Implanted Vascular Access Dvce: No Kidney Stones: No Musculoskeletal: No Neurologic: No Psychiatric: No Reproductive: No Respiratory: No Immunizations Current: Yes Migraines: Yes Myocardial Infarction: Yes (2005) Pneumonia: Yes Radiation Therapy: No Renal Failure: No Seizures: Yes Sleep Apnea: No Thyroid Disease: No Ulcer: No ?: Not Menopausal: Yes : 1 Para: 1 Miscarriage: 0 : 0 Ectopic : No Ovarian Cysts: No Dilation and Curettage (D&C): Yes Tubal Ligation: Yes Past Surgical History Abdominal Surgery: Yes (total gastrectomy w/pouch 2002, hernia repair) Appendectomy: Yes Cardiac Surgery: Yes (pt states an occulator was placed in her heart 2005) Cholecystectomy: Yes Gynecologic Surgery: Yes Hysterectomy: Yes (ONLY TUBES TIED, NOT HYSTERECTOMY) Thoracic Surgery: No Tonsillectomy: Yes Other Surgery: Yes (tot gastrectomy) Social History Alcohol Use: No Tobacco Use: No Substance Use: No Allergies-Medications (Allergen,Severity, Reaction): Coded Allergies: Compazine (Verified Allergy, Severe, SOB, 09/10/16) Gadolinium Derivatives (Verified Allergy, Severe, RESPIRATORY DISTRESS, 09/10/16) Lobster (Verified Allergy, Severe, Anaphylaxis, 09/10/16) Morphine (Verified Allergy, Severe, Hives, 09/10/16) PT HAVING HIVES AND ITCHING TO ARM ABOVE IV SITE AFTER ADMINISTRATION OF MORPHINE Phenergan (Verified Allergy, Severe, SOB, 09/10/16) Reglan (Verified Allergy, Severe, SOB, 09/10/16) Toradol (Verified Allergy, Severe, Shortness of Breath, 09/10/16) Zofran (Verified Allergy, Severe, SOB, 09/10/16) Tigan (Verified Allergy, Intermediate, sob, 09/10/16) difficult breathing Penicillin (Verified Allergy, Mild, RASH, 09/10/16) Sulfa (Verified Allergy, Mild, RASH, 09/10/16) Uncoded Allergies: GADOLINIUM (Adverse Reaction, Severe, PT STOPPED BREATHING WITH GADO, ) PT STATES SHE STOPPED BREATHING AFTER HAVING GADO AT ANOTHER FACILITY. 06/23/16 [facility] Reported Meds & Prescriptions Reported Meds & Active Scripts Active Diphenhydramine (Diphenhydramine HCl) 25 Mg Cap 25 Mg PO Q6H PRN Reported Ambien (Zolpidem Tartrate) 10 Mg Tab 10 Mg PO HS PRN Dilaudid (Hydromorphone HCl) 4 Mg Tab 4 Mg PO Q6H PRN Valium (Diazepam) 10 Mg Tab 10 Mg PO TID Buspirone (Buspirone HCl) 7.5 Mg Tab 7.5 Mg PO BID Zyprexa (Olanzapine) 5 Mg Tab 5 Mg PO BID Cyanocobalamin Inj (Cyanocobalamin) 1,000 Mcg/Ml Inj 1,000 Mcg IM Q30D Imipramine HCL (Imipramine HCl) 25 Mg Tab 25 Mg PO HS Review of Systems Gastrointestinal: Positive: Nausea, Vomiting, Abdominal Pain Physical Exam Narrative GENERAL: Well-nourished, well-developed patient. SKIN: Focused skin assessment warm/dry. HEAD: Normocephalic. EYES: No scleral icterus. No injection or drainage. NECK: Supple, trachea midline. No JVD or lymphadenopathy. CARDIOVASCULAR: Regular rate and rhythm without murmurs, gallops, or rubs. RESPIRATORY: Breath sounds equal bilaterally. No accessory muscle use. GASTROINTESTINAL: Abdomen soft, nondistended. Patient has moderate diffuse tenderness over the abdomen. No rebound tenderness. No mass. MUSCULOSKELETAL: No cyanosis, or edema. BACK: Nontender without obvious deformity. No CVA tenderness. Neurologic exam normal. Data Data Last Documented VS Vital Signs Date Time Temp Pulse Resp B/P Pulse Ox O2 Delivery O2 Flow Rate FiO2 09/10/16 16:28 86 98 Room Air 09/10/16 15:24 97.7 17 132/94 Orders Electrocardiogram (09/10/16 ) Complete Blood Count With Diff (09/10/16 16:11) Comprehensive Metabolic Panel (09/10/16 16:11) Troponin I (09/10/16 16:11) Lipase (09/10/16 16:11) Iv Access Insert/Monitor (09/10/16 16:11) Ecg Monitoring (09/10/16 16:11) Oximetry (09/10/16 16:11) Sodium Chlor 0.9% 1000 Ml Inj (Ns 1000 M (09/10/16 16:15) Diphenhydramine Inj (Benadryl Inj) (09/10/16 16:45) Dicyclomine Inj (Bentyl Inj) (09/10/16 17:00) Labs Laboratory Tests Test 09/10/16 16:55 White Blood Count 4.9 TH/MM3 Red Blood Count 4.24 MIL/MM3 Hemoglobin 11.4 GM/DL Hematocrit 35.4 % Mean Corpuscular Volume 83.5 FL Mean Corpuscular Hemoglobin 26.9 PG Mean Corpuscular Hemoglobin 32.2 % Concent Red Cell Distribution Width 18.0 % Platelet Count 207 TH/MM3 Mean Platelet Volume 9.9 FL Neutrophils (%) (Auto) 74.1 % Lymphocytes (%) (Auto) 21.6 % Monocytes (%) (Auto) 4.0 % Eosinophils (%) (Auto) 0.3 % Basophils (%) (Auto) 0.0 % Neutrophils # (Auto) 3.6 TH/MM3 Lymphocytes # (Auto) 1.0 TH/MM3 Monocytes # (Auto) 0.2 TH/MM3 Eosinophils # (Auto) 0.0 TH/MM3 Basophils # (Auto) 0.0 TH/MM3 CBC Comment DIFF FINAL Differential Comment MDM Medical Decision Making Medical Screen Exam Complete: Yes Emergency Medical Condition: Yes Medical Record Reviewed: Yes Differential Diagnosis Differential diagnosis including acute exacerbation of chronic abdominal pain, dehydration, electrolyte imbalance. Narrative Course 56 years old female with recurrent abdominal pain and nausea vomiting. Normal saline solution 1 L IV bolus. Bentyl 20 mg IM. Benadryl 50 mg IV. Edmar Georges MD Sep 10, 2016 16:15
[2016-09-10 16:28] VITALS: PULSE 86; O2SAT 98
[2016-09-10] MEDS ORDERED: diphenhydrAMINE HCL 50 MG/ML VIAL IV PUSH ONE ×2 (16:45→18:00)
[2016-09-10] MEDS ORDERED: DICYCLOMINE HCL 20 MG/2 ML VIAL IM ONE (17:00)
[2016-09-10 17:17] LABS: AUTOMATED NEUTROPHIL # 3.6 TH/MM3 (1.8-7.7); EOSINOPHIL % 0.3 % (0.0-4.0); HEMATOCRIT 35.4 % (35.0-46.0); HEMO FLAGS DIFF FINAL; LYMPH % 21.6 % (9.0-44.0); MEAN CELL VOLUME 83.5 FL (80.0-100.0); MEAN CORPUSCULAR HEMOGLOBIN 26.9 PG (27.0-34.0); MEAN CORPUSCULAR HGB CONC 32.2 % (32.0-36.0); NEUT % 74.1 % (16.0-70.0); PLATELET COUNT 207 TH/MM3 (150-450); RED BLOOD COUNT 4.24 MIL/MM3 (4.00-5.30); WHITE BLOOD COUNT 4.9 TH/MM3 (4.0-11.0)
[2016-09-10 17:36] LABS: ALT (GPT) 23 U/L (10-53); ANION GAP 9 MEQ/L (5-15); AST (GOT) 13 U/L (15-37); BLOOD UREA NITROGEN 13 MG/DL (7-18); CHLORIDE 103 MEQ/L (98-107); GLOMERULAR FILTRATION RATE 69 ML/MIN (>89); POTASSIUM 3.6 MEQ/L (3.5-5.1); SODIUM (NA) 136 MEQ/L (136-145)
[2016-09-10 17:40] LABS: ALKALINE PHOSPHATASE 96 U/L (45-117); TOTAL BILIRUBIN ADULT 0.4 MG/DL (0.2-1.0)
--- NOTE | 2016-09-10 17:52 | PD ---
Physical Exam Narrative Patient was initially evaluated by the previous provider and signed out to me at the beginning of my shift at approximately 5:00 PM pending labs and disposition. See his note for further details. Briefly this is a 56-year-old female with chronic abdominal pain seen in the emergency department multiple times for the same. On exam there is no abdominal tenderness. CBC and CMP are unremarkable. Cardiac enzymes are negative. Lipase is 171. Patient is requesting Dilaudid and Ativan for her pain. I believe the patient is displaying drug-seeking behavior. She has been worked up for this abdominal pain several times with a negative workups. At this point she is stable for discharge home with outpatient follow-up with her pen tester this week. Data Data Last Documented VS Vital Signs Date Time Temp Pulse Resp B/P Pulse Ox O2 Delivery O2 Flow Rate FiO2 09/10/16 16:28 86 98 Room Air 09/10/16 15:24 97.7 17 132/94 Orders Electrocardiogram (09/10/16 ) Complete Blood Count With Diff (09/10/16 16:11) Comprehensive Metabolic Panel (09/10/16 16:11) Troponin I (09/10/16 16:11) Lipase (09/10/16 16:11) Iv Access Insert/Monitor (09/10/16 16:11) Ecg Monitoring (09/10/16 16:11) Oximetry (09/10/16 16:11) Sodium Chlor 0.9% 1000 Ml Inj (Ns 1000 M (09/10/16 16:15) Diphenhydramine Inj (Benadryl Inj) (09/10/16 16:45) Dicyclomine Inj (Bentyl Inj) (09/10/16 17:00) Diphenhydramine Inj (Benadryl Inj) (09/10/16 18:00) Acetaminophen (Tylenol) (09/10/16 18:00) Labs Laboratory Tests Test 09/10/16 09/10/16 16:25 16:55 Sodium Level 136 MEQ/L Potassium Level 3.6 MEQ/L Chloride Level 103 MEQ/L Carbon Dioxide Level 24.0 MEQ/L Anion Gap 9 MEQ/L Blood Urea Nitrogen 13 MG/DL Creatinine 0.85 MG/DL Estimat Glomerular Filtration 69 ML/MIN Rate Random Glucose 106 MG/DL Calcium Level 9.6 MG/DL Total Bilirubin 0.4 MG/DL Aspartate Amino Transf 13 U/L (AST/SGOT) Alanine Aminotransferase 23 U/L (ALT/SGPT) Alkaline Phosphatase 96 U/L Troponin I LESS THAN 0.02 NG/ML Total Protein 7.7 GM/DL Albumin 4.4 GM/DL Lipase 171 U/L White Blood Count 4.9 TH/MM3 Red Blood Count 4.24 MIL/MM3 Hemoglobin 11.4 GM/DL Hematocrit 35.4 % Mean Corpuscular Volume 83.5 FL Mean Corpuscular Hemoglobin 26.9 PG Mean Corpuscular Hemoglobin 32.2 % Concent Red Cell Distribution Width 18.0 % Platelet Count 207 TH/MM3 Mean Platelet Volume 9.9 FL Neutrophils (%) (Auto) 74.1 % Lymphocytes (%) (Auto) 21.6 % Monocytes (%) (Auto) 4.0 % Eosinophils (%) (Auto) 0.3 % Basophils (%) (Auto) 0.0 % Neutrophils # (Auto) 3.6 TH/MM3 Lymphocytes # (Auto) 1.0 TH/MM3 Monocytes # (Auto) 0.2 TH/MM3 Eosinophils # (Auto) 0.0 TH/MM3 Basophils # (Auto) 0.0 TH/MM3 CBC Comment DIFF FINAL Differential Comment MDM Supervised Visit with AGNES: No Diagnosis Primary Impression: Chronic abdominal pain Additional Impression: Nausea and vomiting Qualified Code: R11.2 - Non-intractable vomiting with nausea, unspecified vomiting type Referrals: [employer] Work[employer] 3 days Primary Care Physician 3 days Additional Instruction: Follow-up with your primary care physician this week. Follow-up with your pen tester this week. Return to the emergency department for worsening symptoms or any other concerns. Disposition: 01 DISCHARGE HOME Condition: Stable Williams Sorto MD Sep 10, 2016 17:52
[2016-09-10] MEDS ORDERED: ACETAMINOPHEN 325 MG TAB PO ONE (18:00)
--- NOTE | 2016-09-11 17:00 | EKG ---
Date Performed: 09/10/2016 Time Performed: 15:42:05 PTAGE: 56 years EKG: Sinus rhythm LEFT BUNDLE BRANCH BLOCK When compared to previous tracing, left bundle branch block is Now present. ABNORMAL ECG PREVIOUS TRACING : 08/12/2016 16.55 DOCTOR: Negrito Alves Interpretating Date/Time 09/11/2016 16:58:31
== END 2016-09-10 18:23 | disposition home or self-care (01) ==
LOC: NEPD 15:23
DX: R10.9 Unspecified abdominal pain (principal); R11.2 Nausea with vomiting, unspecified
CPT/HCPCS: 80053; 83690; 84484; 85025; 93005; 96372; 96374; 96376; 99284; J0500; J1200; J7030

== ENCOUNTER 2016-09-12 17:52 | Emergency (ER) | payer BC ==
[2016-09-12 17:53] VITALS: BP 175/97; PULSE 108; RESP 20; TEMP 99; O2SAT 97
--- NOTE | 2016-09-12 18:54 | PD ---
HPI Chief Complaint: Chest Pain Time Seen by Provider: 18:51 Travel History International Travel<30 days: No Contact w/Intl Traveler<30days: No Traveled to known affect area: No History of Present Illness HPI Patient comes in the emergency department complaining of left-sided chest pain that began about a hour and a half prior to arrival. Patient states feels similar to chest pain she was having a few days ago when she seen emergency Department for the same only if is now worse. Patient also complaining of chronic abdominal pain. Patient states she's tried to use her medication prescribed by pain management for fentanyl patch and oral Dilaudid but is having difficulty keeping the Dilaudid down. Patient reports symptoms have been going on for approximately 6 days. PFSH Past Medical History Hx Anticoagulant Therapy: No Asthma: No Blood Disorders: No Anxiety: Yes Depression: No Heart Rhythm Problems: No Cancer: Yes (kidney) Cardiovascular Problems: Yes ([place]) High Cholesterol: No Chemotherapy: Yes (KIDNEY ) Chest Pain: No Congestive Heart Failure: No COPD: No Cerebrovascular Accident: Yes Diabetes: No Diminished Hearing: No Endocrine: No Gastrointestinal Disorders: Yes GERD: No Genitourinary: Yes (RIGHT NEPHRECTOMY) Headaches: Yes Hiatal Hernia: Yes Hypertension: No Immune Disorder: No Implanted Vascular Access Dvce: No Kidney Stones: No Musculoskeletal: No Neurologic: No Psychiatric: No Reproductive: No Respiratory: No Immunizations Current: Yes Migraines: Yes Myocardial Infarction: Yes (2006) Pneumonia: Yes Radiation Therapy: No Renal Failure: No Seizures: Yes Sleep Apnea: No Thyroid Disease: No Ulcer: No Tetanus Vaccination: < 5 Years Influenza Vaccination: Yes ?: Not Menopausal: Yes : 1 Para: 1 Miscarriage: 0 : 0 Ectopic : No Ovarian Cysts: No Dilation and Curettage (D&C): Yes Tubal Ligation: Yes Past Surgical History Abdominal Surgery: Yes (total gastrectomy w/pouch 2002, hernia repair) Appendectomy: Yes Cardiac Surgery: Yes (pt states an occulator was placed in her heart 2005) Cholecystectomy: Yes Gynecologic Surgery: Yes Hysterectomy: Yes (ONLY TUBES TIED, NOT HYSTERECTOMY) Thoracic Surgery: No Tonsillectomy: Yes Other Surgery: Yes (tot gastrectomy) Social History Alcohol Use: No Tobacco Use: No Substance Use: No Allergies-Medications (Allergen,Severity, Reaction): Coded Allergies: Compazine (Verified Allergy, Severe, SOB, 09/10/16) Gadolinium Derivatives (Verified Allergy, Severe, RESPIRATORY DISTRESS, 09/10/16) Lobster (Verified Allergy, Severe, Anaphylaxis, 09/10/16) Morphine (Verified Allergy, Severe, Hives, 09/10/16) PT HAVING HIVES AND ITCHING TO ARM ABOVE IV SITE AFTER ADMINISTRATION OF MORPHINE Phenergan (Verified Allergy, Severe, SOB, 09/10/16) Reglan (Verified Allergy, Severe, SOB, 09/10/16) Toradol (Verified Allergy, Severe, Shortness of Breath, 09/10/16) Zofran (Verified Allergy, Severe, SOB, 09/10/16) Tigan (Verified Allergy, Intermediate, sob, 09/10/16) difficult breathing Penicillin (Verified Allergy, Mild, RASH, 09/10/16) Sulfa (Verified Allergy, Mild, RASH, 09/10/16) Uncoded Allergies: GADOLINIUM (Adverse Reaction, Severe, PT STOPPED BREATHING WITH GADO, ) PT STATES SHE STOPPED BREATHING AFTER HAVING GADO AT ANOTHER FACILITY. 06/23/16 [facility] Reported Meds & Prescriptions Reported Meds & Active Scripts Active Diphenhydramine (Diphenhydramine HCl) 25 Mg Cap 25 Mg PO Q6H PRN Reported Ambien (Zolpidem Tartrate) 10 Mg Tab 10 Mg PO HS PRN Dilaudid (Hydromorphone HCl) 4 Mg Tab 4 Mg PO Q6H PRN Valium (Diazepam) 10 Mg Tab 10 Mg PO TID Buspirone (Buspirone HCl) 7.5 Mg Tab 7.5 Mg PO BID Cyanocobalamin Inj (Cyanocobalamin) 1,000 Mcg/Ml Inj 1,000 Mcg IM Q30D Imipramine HCL (Imipramine HCl) 25 Mg Tab 25 Mg PO HS Review of Systems Except as stated in HPI: all other systems reviewed are Neg Physical Exam Narrative GENERAL: Well-developed, well nourished, in no acute distress, and non-ill appearing. SKIN: Focused skin assessment warm and dry. HEAD: Atraumatic. Normocephalic. EYES: Pupils equal and round. EOMI. No scleral icterus. No injection or drainage. ENT: No nasal bleeding or discharge. Mucous membranes pink and moist. NECK: Trachea midline. No JVD. Supple. No nuclear rigidity. CARDIOVASCULAR: Regular rate and rhythm. No murmur appreciated. RESPIRATORY: No accessory muscle use. No respiratory distress. Clear to auscultation. Breath sounds equal bilaterally. GASTROINTESTINAL: Abdomen soft, nondistended. Hepatic and splenic margins not palpable. Patient reports tenderness throughout her abdomen to the slightest touch. No pulsatile mass. MUSCULOSKELETAL: No obvious deformities. No clubbing. No cyanosis. No edema. Full range of motion. NEUROLOGICAL: Awake and alert. No obvious cranial nerve deficits. Motor grossly within normal limits. Normal speech. PSYCHIATRIC: Appropriate mood and affect; insight and judgment normal. Data Data Last Documented VS Vital Signs Date Time Temp Pulse Resp B/P Pulse Ox O2 Delivery O2 Flow Rate FiO2 09/12/16 20:35 85 18 139/98 98 Room Air 09/12/16 17:53 99.0 Orders Electrocardiogram (09/12/16 ) Basic Metabolic Panel (Bmp) (09/12/16 18:49) Ckmb (Isoenzyme) Profile (09/12/16 18:49) Complete Blood Count With Diff (09/12/16 18:49) Magnesium (Mg) (09/12/16 18:49) Prothrombin Time / Inr (Pt) (09/12/16 18:49) Act Partial Throm Time (Ptt) (09/12/16 18:49) Troponin I (09/12/16 18:49) Lipase (09/12/16 18:49) Chest, Single Ap (09/12/16 18:49) Ecg Monitoring (09/12/16 18:49) Bilateral Bp Monitoring (09/12/16 18:49) Iv Access Insert/Monitor (09/12/16 18:49) Oximetry (09/12/16 18:49) Oxygen Administration (09/12/16 18:49) Aspirin Chew (Aspirin Chew) (09/12/16 19:00) Sodium Chloride 0.9% Flush (Ns Flush) (09/12/16 19:00) Sodium Chlor 0.9% 250 Ml Inj (Ns 250 Ml (09/12/16 19:00) Meclizine (Antivert) (09/12/16 20:00) Dicyclomine (Bentyl) (09/12/16 20:00) Dicyclomine Inj (Bentyl Inj) (09/12/16 20:00) Troponin I (09/12/16 20:00) Haloperidol Inj (Haldol Inj) (09/12/16 21:00) Labs Laboratory Tests Test 09/12/16 09/12/16 19:05 22:00 White Blood Count 3.8 TH/MM3 Red Blood Count 4.65 MIL/MM3 Hemoglobin 12.6 GM/DL Hematocrit 39.0 % Mean Corpuscular Volume 83.9 FL Mean Corpuscular Hemoglobin 27.1 PG Mean Corpuscular Hemoglobin 32.3 % Concent Red Cell Distribution Width 17.9 % Platelet Count 179 TH/MM3 Mean Platelet Volume 9.5 FL Neutrophils (%) (Auto) 47.9 % Lymphocytes (%) (Auto) 41.8 % Monocytes (%) (Auto) 9.4 % Eosinophils (%) (Auto) 0.9 % Basophils (%) (Auto) 0.0 % Neutrophils # (Auto) 1.8 TH/MM3 Lymphocytes # (Auto) 1.6 TH/MM3 Monocytes # (Auto) 0.4 TH/MM3 Eosinophils # (Auto) 0.0 TH/MM3 Basophils # (Auto) 0.0 TH/MM3 CBC Comment DIFF FINAL Differential Comment Prothrombin Time 11.0 SEC Prothromb Time International 1.0 RATIO Ratio Activated Partial 24.8 SEC Thromboplast Time Sodium Level 138 MEQ/L Potassium Level 3.7 MEQ/L Chloride Level 101 MEQ/L Carbon Dioxide Level 29.0 MEQ/L Anion Gap 8 MEQ/L Blood Urea Nitrogen 19 MG/DL Creatinine 0.93 MG/DL Estimat Glomerular Filtration 62 ML/MIN Rate Random Glucose 101 MG/DL Calcium Level 9.4 MG/DL Magnesium Level 2.4 MG/DL Total Creatine Kinase 65 U/L Troponin I LESS THAN 0.02 LESS THAN 0.02 NG/ML NG/ML Lipase 233 U/L [facility] Medical Decision Making Medical Screen Exam Complete: Yes Emergency Medical Condition: Yes Interpretation(s) EKG reviewed by Dr. Gabriel shows normal sinus rhythm with a rate of 92. No STEMI. Differential Diagnosis Acute coronary syndrome, dehydration, chronic pain, drug-seeking, malingering, other Narrative Course 1944 patient reassessed in acute distress though complaining of nausea. Patient has not vomited since being emergency department. Discussed all findings and plan care of patient. Splint patient will repeat cardiac enzymes in the meantime give her meclizine for her nausea and Bentyl for pain. Patient is agreeable to this. 2023 RN informs me that the patient is refusing Bentyl and requesting Dilaudid. The patients chest pain by history and evaluation appears noncardiac, nor noncardiopulmonary in etiology. Evaluation revealed no evidence of cardiac involvement at this time. There is no clinical evidence to suggest thoracic aortic aneurysms or pathology, nor evidence to suggest pulmonary embolism, pericarditis, pneumothorax, nor pneumonia at this time. The patient has minimal risk factors for cardiac disease, pulmonary embolism or aortic disease. Clinical suspicion was discussed with patient and the patient was instructed to follow up with primary care physician for possible Cardiology referral and for potential outpatient evaluation. Patient in no obvious distress upon re-evaluation. All pertinent laboratory/ Radiology result(s) discussed with patient. Discussed patient with Dr. Fields, who saw and evaluated the patient and agree with plan of care and disposition. Any questions/concerns in reference to patient diagnosis/condition discussed and clarified prior to patient's discharge. Reinforced sheer importance of close follow up with patient's primary physician or primary care clinic. Instructed patient to return to ED immediately, if symptoms return/worsen. Pt showed understanding of above instructions. Further instructions and recommendations were detailed in discharge paperwork. Pt ambulated without difficulty out of ED at discharge. Diagnosis Primary Impression: Chronic pain Qualified Code: G89.29 - Other chronic pain Patient Instructions: Chronic Pain (ED), General Instructions Additional Instructions: Follow-up with your primary care physician and pain management doctor in 2-3 days for reevaluation. Return to the emergency department if symptoms get worse. Disposition: 01 DISCHARGE HOME Condition: Stable Mejia Mullen Sep 12, 2016 18:54
[2016-09-12] MEDS ORDERED: ASPIRIN 81 MG CHEW TAB PO ONE (19:00)
[2016-09-12] MEDS ORDERED: SODIUM CHLOR 0.9% 250 ML INJ 250 ML IV ONE (19:00)
[2016-09-12] MEDS ORDERED: SODIUM CHLORIDE 0.9% FLUSH 10 ML FLUSH IVF PRN (19:00)
[2016-09-12 19:24] LABS: APTT (PATIENT) 24.8 SEC (24.3-30.1)
[2016-09-12 19:30] LABS: AUTOMATED NEUTROPHIL # 1.8 TH/MM3 (1.8-7.7); EOSINOPHIL % 0.9 % (0.0-4.0); HEMO FLAGS DIFF FINAL; LYMPH % 41.8 % (9.0-44.0); LYMPHOCYTE # 1.6 TH/MM3 (1.0-4.8); MEAN CELL VOLUME 83.9 FL (80.0-100.0); MEAN CORPUSCULAR HEMOGLOBIN 27.1 PG (27.0-34.0); MEAN CORPUSCULAR HGB CONC 32.3 % (32.0-36.0); MONO % 9.4 % (0.0-8.0); NEUT % 47.9 % (16.0-70.0); PLATELET COUNT 179 TH/MM3 (150-450); RED BLOOD COUNT 4.65 MIL/MM3 (4.00-5.30); RED CELL DISTRIBUTION WIDTH 17.9 % (11.6-17.2); WHITE BLOOD COUNT 3.8 TH/MM3 (4.0-11.0)
[2016-09-12 19:32] LABS: ANION GAP 8 MEQ/L (5-15); BLOOD UREA NITROGEN 19 MG/DL (7-18); CHLORIDE 101 MEQ/L (98-107); GLOMERULAR FILTRATION RATE 62 ML/MIN (>89); MAGNESIUM 2.4 MG/DL (1.5-2.5); POTASSIUM 3.7 MEQ/L (3.5-5.1); SODIUM (NA) 138 MEQ/L (136-145)
[2016-09-12 19:37] LABS: CREATINE KINASE 65 U/L (26-192)
--- NOTE | 2016-09-12 19:47 | RADRPT ---
EXAM DATE/TIME: 09/12/2016 19:19 [facility] COMPARISON: CHEST SINGLE AP, July 16, 2016, 13:20. INDICATIONS : Chest and abdomen pain for the past six days. MEDICAL HISTORY : Cerebrovascular disease. Seizures. Cardiovascular diseaseKidney cancer SURGICAL HISTORY : Appendectomy. Cholecystectomy.Hysterectomy ENCOUNTER: Initial ACUITY: 4 - 6 days PAIN SCORE: 10/10 LOCATION: Bilateral chest FINDINGS: A single view of the chest demonstrates the lungs to be symmetrically aerated without evidence of mas s, infiltrate or effusion. There is hyperaeration bilaterally. The cardiomediastinal contours are un remarkable. Osseous structures are intact. CONCLUSION: No acute disease. No significant change has occurred. Josh Seay MD on September 12, 2016 at 19:45 Board Certified Radiologist. This report was verified electronically.
[2016-09-12] MEDS ORDERED: MECLIZINE HCL 25 MG TAB PO ONE (20:00)
[2016-09-12] MEDS: DICYCLOMINE HCL 20 MG/2 ML VIAL IM ONE ×2 (20:00→20:57)
[2016-09-12] MEDS ORDERED: DICYCLOMINE HCL 10 MG CAP PO ONE (20:00)
[2016-09-12 20:35] VITALS: BP 139/98; PULSE 85; RESP 18; O2SAT 98
[2016-09-12] MEDS ORDERED: HALOPERIDOL LACTATE 5 MG/ML AMP IV PUSH ONE (21:00)
--- NOTE | 2016-09-12 23:54 | PD ---
Data Data Last Documented VS Vital Signs Date Time Temp Pulse Resp B/P Pulse Ox O2 Delivery O2 Flow Rate FiO2 09/12/16 20:35 85 18 139/98 98 Room Air 09/12/16 17:53 99.0 Orders Electrocardiogram (09/12/16 ) Basic Metabolic Panel (Bmp) (09/12/16 18:49) Ckmb (Isoenzyme) Profile (09/12/16 18:49) Complete Blood Count With Diff (09/12/16 18:49) Magnesium (Mg) (09/12/16 18:49) Prothrombin Time / Inr (Pt) (09/12/16 18:49) Act Partial Throm Time (Ptt) (09/12/16 18:49) Troponin I (09/12/16 18:49) Lipase (09/12/16 18:49) Chest, Single Ap (09/12/16 18:49) Ecg Monitoring (09/12/16 18:49) Bilateral Bp Monitoring (09/12/16 18:49) Iv Access Insert/Monitor (09/12/16 18:49) Oximetry (09/12/16 18:49) Oxygen Administration (09/12/16 18:49) Aspirin Chew (Aspirin Chew) (09/12/16 19:00) Sodium Chloride 0.9% Flush (Ns Flush) (09/12/16 19:00) Sodium Chlor 0.9% 250 Ml Inj (Ns 250 Ml (09/12/16 19:00) Meclizine (Antivert) (09/12/16 20:00) Dicyclomine (Bentyl) (09/12/16 20:00) Dicyclomine Inj (Bentyl Inj) (09/12/16 20:00) Troponin I (09/12/16 20:00) Haloperidol Inj (Haldol Inj) (09/12/16 21:00) Labs Laboratory Tests Test 09/12/16 09/12/16 19:05 22:00 White Blood Count 3.8 TH/MM3 Red Blood Count 4.65 MIL/MM3 Hemoglobin 12.6 GM/DL Hematocrit 39.0 % Mean Corpuscular Volume 83.9 FL Mean Corpuscular Hemoglobin 27.1 PG Mean Corpuscular Hemoglobin 32.3 % Concent Red Cell Distribution Width 17.9 % Platelet Count 179 TH/MM3 Mean Platelet Volume 9.5 FL Neutrophils (%) (Auto) 47.9 % Lymphocytes (%) (Auto) 41.8 % Monocytes (%) (Auto) 9.4 % Eosinophils (%) (Auto) 0.9 % Basophils (%) (Auto) 0.0 % Neutrophils # (Auto) 1.8 TH/MM3 Lymphocytes # (Auto) 1.6 TH/MM3 Monocytes # (Auto) 0.4 TH/MM3 Eosinophils # (Auto) 0.0 TH/MM3 Basophils # (Auto) 0.0 TH/MM3 CBC Comment DIFF FINAL Differential Comment Prothrombin Time 11.0 SEC Prothromb Time International 1.0 RATIO Ratio Activated Partial 24.8 SEC Thromboplast Time Sodium Level 138 MEQ/L Potassium Level 3.7 MEQ/L Chloride Level 101 MEQ/L Carbon Dioxide Level 29.0 MEQ/L Anion Gap 8 MEQ/L Blood Urea Nitrogen 19 MG/DL Creatinine 0.93 MG/DL Estimat Glomerular Filtration 62 ML/MIN Rate Random Glucose 101 MG/DL Calcium Level 9.4 MG/DL Magnesium Level 2.4 MG/DL Total Creatine Kinase 65 U/L Troponin I LESS THAN 0.02 LESS THAN 0.02 NG/ML NG/ML Lipase 233 U/L MDM Supervised Visit with AGNES: Yes Narrative Course The history, exam, and medical decision-making in the associated midlevel provider note were completed with my assistance. I reviewed and agree with the findings presented. I attest that I had a [id number] encounter with the patient on the same day, and personally performed and documented my assessment and findings in the medical record. *My assessment and Findings: This is a 56-year-old female with a history of chronic abdominal pain and opiate Dependence well known to our emergency department who presents with increasing chronic abdominal pain and left-sided chest pain. The patient has reassuring labs with 2 normal troponins. I suspect this is an exacerbation of her chronic pain. I don't think any imaging is warranted as her labs are reassuring. Patient will be discharged home. Diagnosis Primary Impression: Chronic pain Qualified Code: G89.29 - Other chronic pain Patient Instructions: General Instructions, Chronic Pain (ED) Additional Instruction: Follow-up with your primary care physician and pain management doctor in 2-3 days for reevaluation. Return to the emergency department if symptoms get worse. Disposition: 01 DISCHARGE HOME Condition: Stable Lilia Fields MD Sep 12, 2016 23:54
--- NOTE | 2016-09-13 10:38 | EKG ---
Date Performed: 09/12/2016 Time Performed: 18:46:43 PTAGE: 56 years EKG: Sinus rhythm POSSIBLE LEFT ATRIAL ENLARGEMENT LEFT BUNDLE BRANCH BLOCK ABNORMAL ECG INTERPRETATION BASED ON A DEF TETE AGE OF 40 YEARS Compared to prior tracing no significant change PREVIOUS TRACING : 09/10/2016 15.42 DOCTOR: Zayra Jeffries Interpretating Date/Time 09/13/2016 10:31:04
== END 2016-09-13 00:34 | disposition home or self-care (01) ==
LOC: NEPE 17:52
DX: G89.29 Other chronic pain (principal); R07.9 Chest pain, unspecified; R10.9 Unspecified abdominal pain; I44.7 Left bundle-branch block, unspecified; I25.2 Old myocardial infarction
CPT/HCPCS: 71010; 80048; 82550; 83690; 83735; 84484; 85025; 85610; 85730; 93005; 96361; 96372; 96374; 99285; J0500; J1630; J7050

== ENCOUNTER 2016-10-04 09:33 | Emergency (ER) | payer BC ==
[~2016-10-04] VITALS: Ht 157.5 cm; Wt 49.5 kg
[~2016-10-04 09:33] MED LIST changes: -ZYPR5TAB PO
[2016-10-04 09:35] VITALS: BP 179/96; PULSE 66; RESP 15; TEMP 98.2; O2SAT 98
[2016-10-04] MEDS ORDERED: SODIUM CHLOR 0.9% 1000 ML INJ 1,000 ML IV SCH (09:49)
--- NOTE | 2016-10-04 09:53 | PD ---
HPI Chief Complaint: Abdominal Pain Time Seen by Provider: 09:48 Travel History International Travel<30 days: No Contact w/Intl Traveler<30days: No Traveled to known affect area: No History of Present Illness HPI Patient 56-year-old female presents emergency department for evaluation of acute on chronic abdominal pain in the epigastric region. Patient states she's had a history of gastrectomy for recurrent aspiration pneumonia. Patient states there is more severe pain this morning sharp in nature radiating to her back. She is also been having some dry heaves. She took a Dilaudid prior to arrival without relief. She's also states that she thinks is dehydrated. Multiple prior admissions to this emergency department for similar. PFSH Past Medical History Hx Anticoagulant Therapy: No Asthma: No Blood Disorders: No Anxiety: Yes Depression: No Heart Rhythm Problems: No Cancer: Yes (kidney) Cardiovascular Problems: Yes ([place]) High Cholesterol: No Chemotherapy: Yes (KIDNEY ) Chest Pain: No Congestive Heart Failure: No COPD: No Cerebrovascular Accident: Yes Diabetes: No Diminished Hearing: No Endocrine: No Gastrointestinal Disorders: Yes GERD: No Genitourinary: Yes (RIGHT NEPHRECTOMY) Headaches: Yes Hiatal Hernia: Yes Hypertension: No Immune Disorder: No Implanted Vascular Access Dvce: No Kidney Stones: No Musculoskeletal: No Neurologic: No Psychiatric: No Reproductive: No Respiratory: No Immunizations Current: Yes Migraines: Yes Myocardial Infarction: Yes (2006) Pneumonia: Yes Radiation Therapy: No Renal Failure: No Seizures: Yes Sleep Apnea: No Thyroid Disease: No Ulcer: No Tetanus Vaccination: < 5 Years Influenza Vaccination: Yes ?: Not Menopausal: Yes : 1 Para: 1 Miscarriage: 0 : 0 Ectopic : No Ovarian Cysts: No Dilation and Curettage (D&C): Yes Tubal Ligation: Yes Past Surgical History Abdominal Surgery: Yes (total gastrectomy w/pouch 2002, hernia repair) Appendectomy: Yes Cardiac Surgery: Yes (pt states an occulator was placed in her heart 2005) Cholecystectomy: Yes Gynecologic Surgery: Yes Hysterectomy: Yes (ONLY TUBES TIED, NOT HYSTERECTOMY) Thoracic Surgery: No Tonsillectomy: Yes Other Surgery: Yes (tot gastrectomy) Social History Alcohol Use: No Tobacco Use: No Substance Use: No Allergies-Medications (Allergen,Severity, Reaction): Coded Allergies: Compazine (Verified Allergy, Severe, SOB, 10/04/16) Gadolinium Derivatives (Verified Allergy, Severe, RESPIRATORY DISTRESS, ) Lobster (Verified Allergy, Severe, Anaphylaxis, 10/04/16) Morphine (Verified Allergy, Severe, Hives, 10/04/16) PT HAVING HIVES AND ITCHING TO ARM ABOVE IV SITE AFTER ADMINISTRATION OF MORPHINE Phenergan (Verified Allergy, Severe, SOB, 10/04/16) Reglan (Verified Allergy, Severe, SOB, 10/04/16) Toradol (Verified Allergy, Severe, Shortness of Breath, 10/04/16) Zofran (Verified Allergy, Severe, SOB, 10/04/16) Tigan (Verified Allergy, Intermediate, sob, 10/04/16) difficult breathing Penicillin (Verified Allergy, Mild, RASH, 10/04/16) Sulfa (Verified Allergy, Mild, RASH, 10/04/16) Uncoded Allergies: GADOLINIUM (Adverse Reaction, Severe, PT STOPPED BREATHING WITH GADO, ) PT STATES SHE STOPPED BREATHING AFTER HAVING GADO AT ANOTHER FACILITY. 06/23/16 [facility] Reported Meds & Prescriptions Reported Meds & Active Scripts Active Diphenhydramine (Diphenhydramine HCl) 25 Mg Cap 25 Mg PO Q6H PRN Reported Ambien (Zolpidem Tartrate) 10 Mg Tab 10 Mg PO HS PRN Dilaudid (Hydromorphone HCl) 4 Mg Tab 4 Mg PO Q6H PRN Valium (Diazepam) 10 Mg Tab 10 Mg PO TID Buspirone (Buspirone HCl) 7.5 Mg Tab 7.5 Mg PO BID Cyanocobalamin Inj (Cyanocobalamin) 1,000 Mcg/Ml Inj 1,000 Mcg IM Q30D Imipramine HCL (Imipramine HCl) 25 Mg Tab 25 Mg PO HS Review of Systems Except as stated in HPI: all other systems reviewed are Neg Physical Exam Narrative GENERAL: Well-developed, appears older than stated age, no obvious distress, very thin. SKIN: Focused skin assessment warm/dry. HEAD: Atraumatic. Normocephalic. EYES: Pupils equal and round. No scleral icterus. No injection or drainage. ENT: No nasal bleeding or discharge. Mucous membranes pink and moist. NECK: Trachea midline. No JVD. CARDIOVASCULAR: Regular rate and rhythm. No murmur appreciated. RESPIRATORY: No accessory muscle use. Clear to auscultation. Breath sounds equal bilaterally. GASTROINTESTINAL: Abdomen soft, minimally tender in the epigastric area, nondistended. Hepatic and splenic margins not palpable. MUSCULOSKELETAL: No obvious deformities. No clubbing. No cyanosis. No edema. NEUROLOGICAL: Awake and alert. No obvious cranial nerve deficits. Motor grossly within normal limits. Normal speech. PSYCHIATRIC: Appropriate mood and affect; insight and judgment normal. Data Data Last Documented VS Vital Signs Date Time Temp Pulse Resp B/P Pulse Ox O2 Delivery O2 Flow Rate FiO2 10/04/16 12:51 100 10/04/16 12:00 65 16 132/87 Room Air 10/04/16 09:35 98.2 Orders Complete Blood Count With Diff (10/04/16 09:49) Comprehensive Metabolic Panel (10/04/16 09:49) Lipase (10/04/16 09:49) Urinalysis - C+S If Indicated (10/04/16 09:49) Iv Access Insert/Monitor (10/04/16 09:49) Ecg Monitoring (10/04/16 09:49) Oximetry (10/04/16 09:49) Sodium Chlor 0.9% 1000 Ml Inj (Ns 1000 M (10/04/16 09:49) Sodium Chloride 0.9% Flush (Ns Flush) (10/04/16 10:00) Dicyclomine Inj (Bentyl Inj) (10/04/16 10:00) Diphenhydramine Inj (Benadryl Inj) (10/04/16 10:00) Haloperidol Inj (Haldol Inj) (10/04/16 10:00) Hydromorphone (Dilaudid) (10/04/16 12:30) Labs Laboratory Tests Test 10/04/16 10/04/16 10:20 12:05 White Blood Count 3.3 TH/MM3 Red Blood Count 4.21 MIL/MM3 Hemoglobin 11.6 GM/DL Hematocrit 35.8 % Mean Corpuscular Volume 85.0 FL Mean Corpuscular Hemoglobin 27.5 PG Mean Corpuscular Hemoglobin 32.4 % Concent Red Cell Distribution Width 19.3 % Platelet Count 192 TH/MM3 Mean Platelet Volume 9.9 FL Neutrophils (%) (Auto) 67.9 % Lymphocytes (%) (Auto) 23.7 % Monocytes (%) (Auto) 7.5 % Eosinophils (%) (Auto) 0.9 % Basophils (%) (Auto) 0.0 % Neutrophils # (Auto) 2.2 TH/MM3 Lymphocytes # (Auto) 0.8 TH/MM3 Monocytes # (Auto) 0.2 TH/MM3 Eosinophils # (Auto) 0.0 TH/MM3 Basophils # (Auto) 0.0 TH/MM3 CBC Comment DIFF FINAL Differential Comment Sodium Level 139 MEQ/L Potassium Level 3.5 MEQ/L Chloride Level 106 MEQ/L Carbon Dioxide Level 24.7 MEQ/L Anion Gap 8 MEQ/L Blood Urea Nitrogen 9 MG/DL Creatinine 0.80 MG/DL Estimat Glomerular Filtration 74 ML/MIN Rate Random Glucose 89 MG/DL Calcium Level 9.2 MG/DL Total Bilirubin 0.2 MG/DL Aspartate Amino Transf 29 U/L (AST/SGOT) Alanine Aminotransferase 24 U/L (ALT/SGPT) Alkaline Phosphatase 95 U/L Total Protein 7.4 GM/DL Albumin 3.4 GM/DL Lipase 300 U/L Urine Color LIGHT-YELLOW Urine Turbidity CLEAR Urine pH 6.5 Urine Specific [place] 1.008 Urine Protein NEG mg/dL Urine Glucose (UA) NEG mg/dL Urine Ketones NEG mg/dL Urine Occult Blood NEG Urine Nitrite NEG Urine Bilirubin NEG Urine Urobilinogen LESS THAN 2.0 MG/DL Urine Leukocyte Esterase NEG Urine RBC LESS THAN 1 /hpf Urine WBC 1 /hpf Urine Squamous Epithelial 1 /hpf Cells Urine Mucus FEW /lpf Microscopic Urinalysis Comment CULT NOT INDICATED MDM Medical Decision Making Medical Screen Exam Complete: Yes Emergency Medical Condition: Yes Differential Diagnosis Acute on chronic abdominal pain, gastritis, gastroenteritis, acute abdomen highly unlikely, Narrative Course Patient was roomed in emergency department, she states she has a ride home and was given Bentyl Benadryl and Haldol. His medicines are reported to work in the chart on prior visits this month. The patient labs are reassuring including a CBC CMP and lipase as well as UA. Patient's abdomen is benign. She appears quite comfortable. The patient his called the nurse of multiple times threatening to leave AMA if she didn't get something stronger for pain. When I revisited her she is walking in the room and appears in no distress. She states that the medications that I prescribed her in the emergency department don't work for her and that the only thing that works for her is Dilaudid. She asked for a dose IV. At this point I don't believe the patient has indications for IV narcotics as her abdomen is benign and her initial workup is negative. I offered a CAT scan of her abdomen and she is concerned about any additional pathology over her chronic pain and she declined this. She again asked for a dose of IV Dilaudid. I would happily prescribe her a dose of by mouth Dilaudid and she stated no she needed IV Dilaudid and I said again I would not prescribe her IV Dilaudid. She then agreed to have by mouth Dilaudid and stated that she would leave after that. The patient does have a ride home. I'll oblige with 2 mg by mouth Dilaudid and she was discharged. She emulating from the emergent department in no apparent distress. Diagnosis Primary Impression: Abdominal pain Qualified Code: R10.84 - Generalized abdominal pain Additional Instructions: Follow with her primary care provider and your bridge painter. You' re welcome to return to the emergency department any time he feels necessary. Disposition: 01 DISCHARGE HOME Condition: Stable Wilmer Hyman MD Oct 04, 2016 09:53
[2016-10-04] MEDS ORDERED: HALOPERIDOL LACTATE 5 MG/ML AMP IM ONE (10:00)
[2016-10-04] MEDS ORDERED: DICYCLOMINE HCL 20 MG/2 ML VIAL IM ONE (10:00)
[2016-10-04] MEDS ORDERED: SODIUM CHLORIDE 0.9% FLUSH 10 ML FLUSH IV FLUSH PRN (10:00)
[2016-10-04] MEDS ORDERED: diphenhydrAMINE HCL 50 MG/ML VIAL IV PUSH ONE (10:00)
[2016-10-04 10:48] LABS: AUTOMATED NEUTROPHIL # 2.2 TH/MM3 (1.8-7.7); EOSINOPHIL % 0.9 % (0.0-4.0); HEMATOCRIT 35.8 % (35.0-46.0); HEMO FLAGS DIFF FINAL; LYMPH % 23.7 % (9.0-44.0); LYMPHOCYTE # 0.8 TH/MM3 (1.0-4.8); MEAN CORPUSCULAR HEMOGLOBIN 27.5 PG (27.0-34.0); MEAN CORPUSCULAR HGB CONC 32.4 % (32.0-36.0); MONO % 7.5 % (0.0-8.0); NEUT % 67.9 % (16.0-70.0); PLATELET COUNT 192 TH/MM3 (150-450); RED BLOOD COUNT 4.21 MIL/MM3 (4.00-5.30); RED CELL DISTRIBUTION WIDTH 19.3 % (11.6-17.2); WHITE BLOOD COUNT 3.3 TH/MM3 (4.0-11.0)
[2016-10-04 10:55] LABS: ANION GAP 8 MEQ/L (5-15); AST (GOT) 29 U/L (15-37); BICARBONATE 24.7 MEQ/L (21.0-32.0); BLOOD UREA NITROGEN 9 MG/DL (7-18); CHLORIDE 106 MEQ/L (98-107); GLOMERULAR FILTRATION RATE 74 ML/MIN (>89); POTASSIUM 3.5 MEQ/L (3.5-5.1); SODIUM (NA) 139 MEQ/L (136-145)
[2016-10-04 10:58] LABS: ALKALINE PHOSPHATASE 95 U/L (45-117); ALT (GPT) 24 U/L (10-53); TOTAL BILIRUBIN ADULT 0.2 MG/DL (0.2-1.0)
[2016-10-04 11:01] VITALS: BP 140/80; PULSE 65; RESP 15; O2SAT 97
[2016-10-04 12:00] VITALS: BP 132/87; PULSE 65; RESP 16; O2SAT 98
[2016-10-04 12:26] LABS: BLOOD, URINE NEG (NEG); COMMENT (UR) CULT NOT INDICATED; CULTURE IF INDICATED CULT NOT INDICATED; GLUCOSE,URINE NEG (NEG); KETONE, URINE NEG (NEG); MUCUS URINE FEW /lpf (OCC); NITRITE,URINE NEG (NEG); PH, URINE 6.5 (5.0-8.5); SQUAMOUS EPITHELIAL CELL URINE 1 /hpf (0-5); URINE COLOR LIGHT-YELLOW (YELLW/STRAW)
[2016-10-04] MEDS ORDERED: HYDROmorphone HCL 2 MG TAB PO ONE (12:30)
== END 2016-10-04 12:57 | disposition home or self-care (01) ==
LOC: NEPD 09:33
DX: R10.84 Generalized abdominal pain (principal); G89.29 Other chronic pain; J69.0 Pneumonitis due to inhalation of food and vomit
CPT/HCPCS: 80053; 81001; 83690; 85025; 96361; 96372; 96374; 99284; J0500; J1200; J1630; J7030

== ENCOUNTER 2016-10-09 19:05 | Emergency (ER) | payer BC ==
[~2016-10-09] VITALS: Ht 167.6 cm; Wt 65.0 kg
[2016-10-09 19:07] VITALS: BP 195/108; PULSE 86; RESP 15; TEMP 98.8; O2SAT 98
[2016-10-09] MEDS ORDERED: ACETAMINOPHEN 1000 MG/100 ML VIAL IV ONE (20:15)
[2016-10-09] MEDS ORDERED: HALOPERIDOL LACTATE 5 MG/ML AMP IV PUSH ONE (20:15)
[2016-10-09] MEDS ORDERED: diphenhydrAMINE HCL 50 MG/ML VIAL IV PUSH ONE (20:15)
[2016-10-09] MEDS ORDERED: DICYCLOMINE HCL 20 MG/2 ML VIAL IM ONE (20:15)
[2016-10-09] MEDS ORDERED: DIPH25CA PO (20:17)
--- NOTE | 2016-10-09 20:17 | PD ---
HPI Chief Complaint: Chest Pain Time Seen by Provider: 20:03 Travel History International Travel<30 days: No Contact w/Intl Traveler<30days: No Traveled to known affect area: No History of Present Illness HPI Is a 56-year-old woman who presents to the emergency department with acute on chronic chest and abdominal pain. Patient has recurrent, about weekly visits to the ED with similar symptoms. She's had a gastrectomy in the past. She reports a history of [place] in the past as well. Multiple negative workups recently. She states, as she typically does, that pain is "worse than it has ever been". She describes left-sided chest pain as well as diffuse abdominal pain. She also describes copious vomiting. She reports allergies to most medicines. She typically asks for IV Dilaudid. History Past Medical History Narrative Medical Per patient Previous gastrectomy History of kidney CA History of CVA CAD, [place] Tetanus Vaccination: < 5 Years Influenza Vaccination: Yes Menopausal: Yes : 1 Para: 1 Dilation and Curettage (D&C): Yes Social History Alcohol Use: No Tobacco Use: No Allergies-Medications (Allergen,Severity, Reaction): Coded Allergies: Compazine (Verified Allergy, Severe, SOB, 10/09/16) Gadolinium Derivatives (Verified Allergy, Severe, RESPIRATORY DISTRESS, 10/09/16) Lobster (Verified Allergy, Severe, Anaphylaxis, 10/09/16) Morphine (Verified Allergy, Severe, Hives, 10/09/16) PT HAVING HIVES AND ITCHING TO ARM ABOVE IV SITE AFTER ADMINISTRATION OF MORPHINE Phenergan (Verified Allergy, Severe, SOB, 10/09/16) Reglan (Verified Allergy, Severe, SOB, 10/09/16) Toradol (Verified Allergy, Severe, Shortness of Breath, 10/09/16) Zofran (Verified Allergy, Severe, SOB, 10/09/16) Tigan (Verified Allergy, Intermediate, sob, 10/09/16) difficult breathing Penicillin (Verified Allergy, Mild, RASH, 10/09/16) Sulfa (Verified Allergy, Mild, RASH, 10/09/16) Uncoded Allergies: GADOLINIUM (Adverse Reaction, Severe, PT STOPPED BREATHING WITH GADO, ) PT STATES SHE STOPPED BREATHING AFTER HAVING GADO AT ANOTHER FACILITY. 06/23/16 [facility] Reported Meds & Prescriptions Reported Meds & Active Scripts Active Diphenhydramine (Diphenhydramine HCl) 25 Mg Cap 25 Mg PO Q6H PRN Reported Ambien (Zolpidem Tartrate) 10 Mg Tab 10 Mg PO HS PRN Dilaudid (Hydromorphone HCl) 4 Mg Tab 4 Mg PO Q5H PRN Valium (Diazepam) 10 Mg Tab 10 Mg PO TID Buspirone (Buspirone HCl) 7.5 Mg Tab 7.5 Mg PO BID Cyanocobalamin Inj (Cyanocobalamin) 1,000 Mcg/Ml Inj 1,000 Mcg IM Q30D Imipramine HCL (Imipramine HCl) 25 Mg Tab 25 Mg PO HS Review of Systems Except as stated in HPI: all other systems reviewed are Neg Physical Exam Narrative GENERAL: Well-appearing 56-year-old woman, adjusting the bed in the room, no acute distress. No vomiting. No writhing. SKIN: Focused skin assessment warm/dry. NECK: Trachea midline. No JVD. CARDIOVASCULAR: Regular rate and rhythm. No murmur appreciated. RESPIRATORY: No accessory muscle use. Clear to auscultation. Breath sounds equal bilaterally. GASTROINTESTINAL: Abdomen flat and soft. Mild upper abdominal tenderness. MUSCULOSKELETAL: No obvious deformities. No edema. NEUROLOGICAL: Awake and alert. No obvious cranial nerve deficits. Motor grossly within normal limits. Normal speech. Data Data Last Documented VS Vital Signs Date Time Temp Pulse Resp B/P Pulse Ox O2 Delivery O2 Flow Rate FiO2 10/09/16 19:07 98.8 86 15 195/108 98 Room Air Orders Electrocardiogram (10/09/16 19:14) Complete Blood Count With Diff (10/09/16 19:14) Troponin I (10/09/16 19:14) Comprehensive Metabolic Panel (10/09/16 20:03) Haloperidol Inj (Haldol Inj) (10/09/16 20:15) Diphenhydramine Inj (Benadryl Inj) (10/09/16 20:15) Dicyclomine Inj (Bentyl Inj) (10/09/16 20:15) Acetaminophen Inj (Ofirmev Inj) (10/09/16 20:15) Sodium Chlorid 0.9% 500 Ml Inj (Ns 500 M (10/09/16 20:45) Labs Laboratory Tests Test 10/09/16 20:10 White Blood Count 4.0 TH/MM3 Red Blood Count 4.84 MIL/MM3 Hemoglobin 13.3 GM/DL Hematocrit 40.7 % Mean Corpuscular Volume 84.0 FL Mean Corpuscular Hemoglobin 27.4 PG Mean Corpuscular Hemoglobin 32.6 % Concent Red Cell Distribution Width 18.7 % Platelet Count 188 TH/MM3 Mean Platelet Volume 10.1 FL Neutrophils (%) (Auto) 74.8 % Lymphocytes (%) (Auto) 19.6 % Monocytes (%) (Auto) 4.9 % Eosinophils (%) (Auto) 0.6 % Basophils (%) (Auto) 0.1 % Neutrophils # (Auto) 3.0 TH/MM3 Lymphocytes # (Auto) 0.8 TH/MM3 Monocytes # (Auto) 0.2 TH/MM3 Eosinophils # (Auto) 0.0 TH/MM3 Basophils # (Auto) 0.0 TH/MM3 CBC Comment DIFF FINAL Differential Comment Sodium Level 142 MEQ/L Potassium Level 3.8 MEQ/L Chloride Level 105 MEQ/L Carbon Dioxide Level 22.4 MEQ/L Anion Gap 15 MEQ/L Blood Urea Nitrogen 11 MG/DL Creatinine 0.93 MG/DL Estimat Glomerular Filtration 62 ML/MIN Rate Random Glucose 129 MG/DL Calcium Level 9.7 MG/DL Total Bilirubin 0.3 MG/DL Aspartate Amino Transf 74 U/L (AST/SGOT) Alanine Aminotransferase 62 U/L (ALT/SGPT) Alkaline Phosphatase 107 U/L Troponin I LESS THAN 0.02 NG/ML Total Protein 8.6 GM/DL Albumin 4.2 GM/DL [facility] Medical Decision Making Medical Screen Exam Complete: Yes Emergency Medical Condition: Yes Interpretation(s) Review of EKG: Normal sinus rhythm at rate of 77, left bundle branch block, compared to previous EKG from September 12, 2016, no significant change. LABS: CBC is unremarkable. CMP remarkable for mildly elevated AST and ALT, slightly up from baseline, low protein little bit elevated as well. Troponin negative. Differential Diagnosis Acute on chronic abdominal pain, gastritis, gastroparesis, narcotic bowel syndrome, other Narrative Course Medical decision-making 56-year-old with acute on chronic abdominal pain and chest pain. Patient looks well. No vomiting here. She is well-known to the emergency department. Avoid opiates. Outpatient follow-up. Diagnosis Primary Impression: Chronic abdominal pain Additional Impression: Chronic narcotic dependence Additional Instructions: Continue current medications. Follow-up with your primary doctor in the next one to 2 days. Return to the emergency department for any new or worsening symptoms. Med/Other Pt SpecificInfo: Prescription(s) given Scripts Diphenhydramine 25 Mg Cap25 Mg PO Q6H PRN (NAUSEA OR VOMITING) #12 CAP Ref 0 Prov:Ranulfo Jerez MD 10/09/16 Disposition: 01 DISCHARGE HOME Condition: Stable Ranulfo Jerez MD October 09, 2016 20:17
[2016-10-09 20:44] LABS: BASOPHIL % 0.1 % (0.0-2.0); EOSINOPHIL % 0.6 % (0.0-4.0); HEMATOCRIT 40.7 % (35.0-46.0); HEMO FLAGS DIFF FINAL; LYMPH % 19.6 % (9.0-44.0); LYMPHOCYTE # 0.8 TH/MM3 (1.0-4.8); MEAN CORPUSCULAR HEMOGLOBIN 27.4 PG (27.0-34.0); MEAN CORPUSCULAR HGB CONC 32.6 % (32.0-36.0); MONO % 4.9 % (0.0-8.0); NEUT % 74.8 % (16.0-70.0); PLATELET COUNT 188 TH/MM3 (150-450); RED BLOOD COUNT 4.84 MIL/MM3 (4.00-5.30); RED CELL DISTRIBUTION WIDTH 18.7 % (11.6-17.2)
[2016-10-09] MEDS ORDERED: SODIUM CHLORID 0.9% 500 ML INJ 500 ML IV ONE (20:45)
[2016-10-09 21:53] LABS: ANION GAP 15 MEQ/L (5-15); AST (GOT) 74 U/L (15-37); BICARBONATE 22.4 MEQ/L (21.0-32.0); BLOOD UREA NITROGEN 11 MG/DL (7-18); CHLORIDE 105 MEQ/L (98-107); GLOMERULAR FILTRATION RATE 62 ML/MIN (>89); POTASSIUM 3.8 MEQ/L (3.5-5.1); SODIUM (NA) 142 MEQ/L (136-145)
[2016-10-09 21:57] LABS: ALKALINE PHOSPHATASE 107 U/L (45-117); ALT (GPT) 62 U/L (10-53); TOTAL BILIRUBIN ADULT 0.3 MG/DL (0.2-1.0)
[2016-10-09 23:43] VITALS: BP 150/80
--- NOTE | 2016-10-10 10:06 | EKG ---
Date Performed: 10/09/2016 Time Performed: 19:28:15 PTAGE: 56 years EKG: Sinus rhythm LEFT BUNDLE BRANCH BLOCK ABNORMAL ECG NO PREVIOUS TRACING DOCTOR: Kate Espinal Interpretating Date/Time 10/10/2016 10:05:13
== END 2016-10-09 23:48 | disposition home or self-care (01) ==
LOC: NEPC 19:05
DX: R10.84 Generalized abdominal pain (principal); F19.20 Other psychoactive substance dependence, uncomplicated; I44.7 Left bundle-branch block, unspecified; R94.31 Abnormal electrocardiogram [ECG] [EKG]
CPT/HCPCS: 80053; 84484; 85025; 93005; 99285; J0131; J0500; J1200; J1630; J7040

== ENCOUNTER 2016-12-01 16:33 | Emergency (ER) | payer BC ==
[~2016-12-01] VITALS: Ht 157.5 cm; Wt 38.0 kg
[2016-12-01 16:35] VITALS: BP 116/71; PULSE 83; RESP 14; TEMP 98; O2SAT 98
--- NOTE | 2016-12-01 16:58 | PD ---
Physical Exam Date Seen by Provider: Dec 01, 2016 Time Seen by Provider: 16:55 Data Data Last Documented VS Vital Signs Date Time Temp Pulse Resp B/P Pulse Ox O2 Delivery O2 Flow Rate FiO2 12/01/16 16:35 98.0 83 14 116/71 98 MDM Supervised Visit with AGNES: No Narrative Course 56 YO F with PMH of chronic abdominal pain with complaint of abdominal pain, nausea, retching. Multiple visits with same complaint. Vitals reviewed. Patient seen in triage, awaiting bed placement. Nany Roberson Dec 01, 2016 16:58
--- NOTE | 2016-12-01 19:48 | PD ---
HPI Chief Complaint: GI Complaint Time Seen by Provider: 19:48 Travel History International Travel<30 days: No Contact w/Intl Traveler<30days: No Traveled to known affect area: No History of Present Illness HPI 56-year-old female who is well-known to the emergency department for recurrent visits for abdominal pain. Patient reports a history of CVA, seizures, [place], liver disease, anxiety, and presents to emergency department today for evaluation of worsening abdominal pain. Patient has had multiple negative workups in the past. She reports the pain is not new. She states that 2 times today when she wiped after bowel movements, she noticed blood. Stool was brown. Denies any other recent illnesses, fever, or chills. He states that he had emergency room she is chilled. She states that she has been unable to keep any medications down, this includes her prescribed Dilaudid and she is requesting Dilaudid IV. Patient also reports that she is in the process of changing her ramp jockey because she feels that her current ramp jockey "does nothing for her." She states she is also in the process of changing her primary care provider because "nobody wants to help her. " She has no other symptoms reported this time. PFSH Past Medical History Hx Anticoagulant Therapy: No Asthma: No Blood Disorders: No Anxiety: Yes Depression: No Heart Rhythm Problems: No Cancer: Yes (kidney) Cardiovascular Problems: Yes ([place]) High Cholesterol: No Chemotherapy: Yes (KIDNEY ) Chest Pain: No Congestive Heart Failure: No COPD: No Cerebrovascular Accident: Yes Diabetes: No Diminished Hearing: No Endocrine: No Gastrointestinal Disorders: Yes GERD: No Genitourinary: Yes (RIGHT NEPHRECTOMY) Headaches: Yes Hiatal Hernia: Yes Hypertension: No Immune Disorder: No Implanted Vascular Access Dvce: No Kidney Stones: No Musculoskeletal: No Neurologic: No Psychiatric: No Reproductive: No Respiratory: No Immunizations Current: Yes Migraines: Yes Myocardial Infarction: Yes (2006) Pneumonia: Yes Radiation Therapy: No Renal Failure: No Seizures: Yes Sleep Apnea: No Thyroid Disease: No Ulcer: No Menopausal: Yes : 1 Para: 1 Miscarriage: 0 : 0 Ectopic : No Ovarian Cysts: No Dilation and Curettage (D&C): Yes Tubal Ligation: Yes Past Surgical History Abdominal Surgery: Yes (total gastrectomy w/pouch 2002, hernia repair) Appendectomy: Yes Cardiac Surgery: Yes (pt states an occulator was placed in her heart 2005) Cholecystectomy: Yes Gynecologic Surgery: Yes Hysterectomy: Yes (ONLY TUBES TIED, NOT HYSTERECTOMY) Thoracic Surgery: No Tonsillectomy: Yes Other Surgery: Yes (tot gastrectomy) Social History Alcohol Use: No Tobacco Use: No Substance Use: No Allergies-Medications (Allergen,Severity, Reaction): Coded Allergies: Compazine (Verified Allergy, Severe, SOB, 12/01/16) Gadolinium Derivatives (Verified Allergy, Severe, RESPIRATORY DISTRESS, ) Lobster (Verified Allergy, Severe, Anaphylaxis, 12/01/16) Morphine (Verified Allergy, Severe, Hives, 12/01/16) PT HAVING HIVES AND ITCHING TO ARM ABOVE IV SITE AFTER ADMINISTRATION OF MORPHINE Phenergan (Verified Allergy, Severe, SOB, 12/01/16) Reglan (Verified Allergy, Severe, SOB, 12/01/16) Toradol (Verified Allergy, Severe, Shortness of Breath, 12/01/16) Zofran (Verified Allergy, Severe, SOB, 12/01/16) Tigan (Verified Allergy, Intermediate, sob, 12/01/16) difficult breathing Penicillin (Verified Allergy, Mild, RASH, 12/01/16) Sulfa (Verified Allergy, Mild, RASH, 12/01/16) Uncoded Allergies: GADOLINIUM (Adverse Reaction, Severe, PT STOPPED BREATHING WITH GADO, ) PT STATES SHE STOPPED BREATHING AFTER HAVING GADO AT ANOTHER FACILITY. 06/23/16 VSV Reported Meds & Prescriptions Reported Meds & Active Scripts Active Diphenhydramine (Diphenhydramine HCl) 25 Mg Cap 25 Mg PO Q6H PRN Reported Ambien (Zolpidem Tartrate) 10 Mg Tab 10 Mg PO HS PRN Dilaudid (Hydromorphone HCl) 4 Mg Tab 4 Mg PO Q5H PRN Valium (Diazepam) 10 Mg Tab 10 Mg PO TID Buspirone (Buspirone HCl) 7.5 Mg Tab 7.5 Mg PO BID Cyanocobalamin Inj (Cyanocobalamin) 1,000 Mcg/Ml Inj 1,000 Mcg IM Q30D Review of Systems Except as stated in HPI: all other systems reviewed are Neg Physical Exam Narrative GENERAL: Thin female patient, lying in bed, in no acute distress SKIN: Focused skin assessment warm/dry. HEAD: Atraumatic. Normocephalic. EYES: Pupils equal and round. No scleral icterus. No injection or drainage. ENT: No nasal bleeding or discharge. Mucous membranes pink and moist. NECK: Trachea midline. No JVD. CARDIOVASCULAR: Regular rate and rhythm. No murmur appreciated. RESPIRATORY: No accessory muscle use. Clear to auscultation. Breath sounds equal bilaterally. GASTROINTESTINAL: Abdomen soft, non-tender, nondistended. Hepatic and splenic margins not palpable. RECTAL EXAM: No masses or tenderness, stool is brown. MUSCULOSKELETAL: No obvious deformities. No clubbing. No cyanosis. No edema. NEUROLOGICAL: Awake and alert. No obvious cranial nerve deficits. Motor grossly within normal limits. Normal speech. Data Data Last Documented VS Vital Signs Date Time Temp Pulse Resp B/P Pulse Ox O2 Delivery O2 Flow Rate FiO2 12/01/16 23:09 18 12/01/16 22:50 69 138/98 100 12/01/16 20:14 Room Air 12/01/16 16:35 98.0 Orders Complete Blood Count With Diff (12/01/16 20:04) Comprehensive Metabolic Panel (12/01/16 20:04) Lipase (12/01/16 20:04) Urinalysis - C+S If Indicated (12/01/16 20:04) Iv Access Insert/Monitor (12/01/16 20:04) Ecg Monitoring (12/01/16 20:04) Oximetry (12/01/16 20:04) Sodium Chlor 0.9% 1000 Ml Inj (Ns 1000 M (12/01/16 20:04) Sodium Chloride 0.9% Flush (Ns Flush) (12/01/16 20:15) Electrocardiogram (12/01/16 20:04) Abdomen, Upright Only (12/01/16 20:04) Vascular Access Team Consult/P PRN (12/01/16 20:12) Vascular Poc Ultrasound (12/01/16 ) Haloperidol Inj (Haldol Inj) (12/01/16 22:00) Diphenhydramine Inj (Benadryl Inj) (12/01/16 22:00) Dicyclomine Inj (Bentyl Inj) (12/01/16 22:00) Acetaminophen Inj (Ofirmev Inj) (12/01/16 22:00) Labs Laboratory Tests Test 12/01/16 20:45 White Blood Count 4.3 TH/MM3 Red Blood Count 4.26 MIL/MM3 Hemoglobin 11.9 GM/DL Hematocrit 36.6 % Mean Corpuscular Volume 85.9 FL Mean Corpuscular Hemoglobin 27.9 PG Mean Corpuscular Hemoglobin 32.5 % Concent Red Cell Distribution Width 17.2 % Platelet Count 170 TH/MM3 Mean Platelet Volume 9.9 FL Neutrophils (%) (Auto) 51.4 % Lymphocytes (%) (Auto) 39.5 % Monocytes (%) (Auto) 7.9 % Eosinophils (%) (Auto) 0.9 % Basophils (%) (Auto) 0.3 % Neutrophils # (Auto) 2.2 TH/MM3 Lymphocytes # (Auto) 1.7 TH/MM3 Monocytes # (Auto) 0.3 TH/MM3 Eosinophils # (Auto) 0.0 TH/MM3 Basophils # (Auto) 0.0 TH/MM3 CBC Comment AUTO DIFF Differential Comment AUTO DIFF CONFIRMED Platelet Estimate NORMAL Platelet Morphology Comment CLUMPED Sodium Level 142 MEQ/L Potassium Level 3.9 MEQ/L Chloride Level 107 MEQ/L Carbon Dioxide Level 24.9 MEQ/L Anion Gap 10 MEQ/L Blood Urea Nitrogen 15 MG/DL Creatinine 0.81 MG/DL Estimat Glomerular Filtration 73 ML/MIN Rate Random Glucose 78 MG/DL Calcium Level 9.0 MG/DL Total Bilirubin 0.2 MG/DL Aspartate Amino Transf 27 U/L (AST/SGOT) Alanine Aminotransferase 55 U/L (ALT/SGPT) Alkaline Phosphatase 96 U/L Total Protein 7.4 GM/DL Albumin 4.0 GM/DL Lipase 302 U/L [facility] Medical Decision Making Medical Screen Exam Complete: Yes Emergency Medical Condition: Yes Medical Record Reviewed: Yes Differential Diagnosis Narcotic pain versus chronic abdominal pain versus gastroparesis versus gastroenteritis versus nausea and vomiting versus electrolyte abnormality versus dehydration versus UTI Narrative Course 56 year-old female presents to emergency department for evaluation. Patient is requesting Dilaudid by name for her abdominal pain. I explained to the patient that I would not be giving her IV Dilaudid and we would move forward with non- opiate pain control. She tells me that she is disappointed that her feelings and pain are not being taken into consideration and that she really needs the Dilaudid. I encouraged her to try non-opiate pain control and explained her again I would not be giving any additional opiate medication. Lab work is without acute concern. No abnormalities identified on upright abdominal x-ray. 2330 patient is resting comfortably with her eyes closed in the bed. Her vital signs are stable. Patient will be discharged home at this time [facility] Internal Pos. & Neg. Controls: Passed Fecal Specimen Occult Blood: Negative Diagnosis Primary Impression: Abdominal pain Qualified Code: R10.84 - Generalized abdominal pain Additional Impressions: Chronic narcotic dependence Nausea & vomiting Qualified Code: R11.2 - Non-intractable vomiting with nausea, unspecified vomiting type Referrals: Marketing Account Manager Pain Management Primary Care Physician Patient Instructions: Chronic Abdominal Pain (ED), General Instructions Additional Instructions: Follow-up with your primary care provider, ramp jockey, and pain management physicians Continue medications as already prescribed Return immediately with any acute worsening symptoms. Med/Other Pt SpecificInfo: No Change to Meds Disposition: 01 DISCHARGE HOME Condition: Stable Lisset Jeong Dec 01, 2016 19:48
[2016-12-01] MEDS ORDERED: SODIUM CHLOR 0.9% 1000 ML INJ 1,000 ML IV SCH (20:04)
[2016-12-01 20:14] VITALS: O2SAT 95
[2016-12-01] MEDS ORDERED: SODIUM CHLORIDE 0.9% FLUSH 10 ML FLUSH IV FLUSH PRN (20:15)
[2016-12-01] MEDS ORDERED: TOFR25TA PO (20:48)
[2016-12-01 21:01] LABS: AUTOMATED NEUTROPHIL # 2.2 TH/MM3 (1.8-7.7); BASOPHIL % 0.3 % (0.0-2.0); EOSINOPHIL % 0.9 % (0.0-4.0); HEMATOCRIT 36.6 % (35.0-46.0); LYMPH % 39.5 % (9.0-44.0); LYMPHOCYTE # 1.7 TH/MM3 (1.0-4.8); MEAN CELL VOLUME 85.9 FL (80.0-100.0); MEAN CORPUSCULAR HEMOGLOBIN 27.9 PG (27.0-34.0); MEAN CORPUSCULAR HGB CONC 32.5 % (32.0-36.0); MONO % 7.9 % (0.0-8.0); NEUT % 51.4 % (16.0-70.0); PLATELET COUNT 170 TH/MM3 (150-450); RED BLOOD COUNT 4.26 MIL/MM3 (4.00-5.30); RED CELL DISTRIBUTION WIDTH 17.2 % (11.6-17.2); WHITE BLOOD COUNT 4.3 TH/MM3 (4.0-11.0)
[2016-12-01 21:06] LABS: HEMO FLAGS AUTO DIFF
--- NOTE | 2016-12-01 21:06 | RADRPT ---
EXAM DATE/TIME: 12/01/2016 20:32 [facility] COMPARISON: CT ABDOMEN & PELVIS W CONTRAST, June 04, 2016, 21:03. ABDOMEN UPRIGHT ONLY, November 20, 2015, 12:42 . INDICATIONS : Abdominal pain. MEDICAL HISTORY : Cerebrovascular disease. Seizures. Cardiovascular disease Kidney cancer. SURGICAL HISTORY : Appendectomy. Cholecystectomy.Hysterectomy. ENCOUNTER: Initial ACUITY: 1 day PAIN SCORE: 5/10 LOCATION: Bilateral abdomen FINDINGS: A single erect view of the abdomen demonstrates the lower lungs to be clear. There is surgical bowel ning seen in the lower esophageal region and in the left upper quadrant. Bowel ning are seen i n the left lower quadrant. Hemoclips in the left upper quadrant and throughout the right abdomen. The re is a metallic device likely related to closure device seen over the right side of the heart. No ev idence of free intraperitoneal gas. The visualized bowel loops are unremarkable. There is degenerati ve change of the lower lumbar spine. CONCLUSION: An acute abnormality is not seen on this plain film examination. Donato Bradshaw MD on December 01, 2016 at 21:00 Board Certified Radiologist. This report was verified electronically.
[2016-12-01 21:24] LABS: PLATELET ESTIMATE SMEAR NORMAL (NORMAL); PLATELET MORPHOLOGY CLUMPED (NORMAL); SCAN/DIFF AUTO DIFF CONFIRMED
[2016-12-01 21:55] LABS: CHLORIDE 107 MEQ/L (98-107); POTASSIUM 3.9 MEQ/L (3.5-5.1); SODIUM (NA) 142 MEQ/L (136-145)
[2016-12-01] MEDS ORDERED: DICYCLOMINE HCL 20 MG/2 ML VIAL IM ONE (22:00)
[2016-12-01] MEDS ORDERED: HALOPERIDOL LACTATE 5 MG/ML AMP IV PUSH ONE (22:00)
[2016-12-01] MEDS ORDERED: ACETAMINOPHEN 1000 MG/100 ML VIAL IV ONE (22:00)
[2016-12-01] MEDS ORDERED: diphenhydrAMINE HCL 50 MG/ML VIAL IV PUSH ONE (22:00)
[2016-12-01 22:50] VITALS: BP 138/98; PULSE 69; RESP 16; O2SAT 100
[2016-12-01 23:00] LABS: ALKALINE PHOSPHATASE 96 U/L (45-117); ALT (GPT) 55 U/L (10-53); ANION GAP 10 MEQ/L (5-15); AST (GOT) 27 U/L (15-37); BICARBONATE 24.9 MEQ/L (21.0-32.0); BLOOD UREA NITROGEN 15 MG/DL (7-18); GLOMERULAR FILTRATION RATE 73 ML/MIN (>89); TOTAL BILIRUBIN ADULT 0.2 MG/DL (0.2-1.0)
[2016-12-01 23:09] VITALS: RESP 18
--- NOTE | 2016-12-02 23:20 | EKG ---
Date Performed: 12/01/2016 Time Performed: 20:34:05 PTAGE: 56 years EKG: Sinus rhythm INTRAVENTRICULAR CONDUCTION DELAY ANTEROSEPTAL MYOCARDIAL INFARCTION ABNORMAL ECG PREVIOUS TRACING : 10/09/2016 19.28 Compared to prior tracing no significant change DOCTOR: Nathalia Mayorga Interpretating Date/Time 12/02/2016 23:18:58
== END 2016-12-02 00:13 | disposition home or self-care (01) ==
LOC: NEPE 16:33
DX: R10.84 Generalized abdominal pain (principal); R11.2 Nausea with vomiting, unspecified; F11.20 Opioid dependence, uncomplicated; I25.2 Old myocardial infarction; Z86.73 Personal history of transient ischemic attack (TIA), and cerebral infarction without residual deficits; Z79.899 Other long term (current) drug therapy
CPT/HCPCS: 74000; 80053; 83690; 85025; 93005; 96372; 96374; 96375; 99285; J0131; J0500; J1200; J1630; J7030

== ENCOUNTER 2016-12-13 09:32 | Emergency (ER) | payer BC ==
[~2016-12-13 09:32] MED LIST changes: -IMIP25TA PO
[2016-12-13 09:34] VITALS: BP 176/85; PULSE 65; RESP 15; TEMP 98.3; O2SAT 98
[2016-12-13 10:14] VITALS: RESP 16; O2SAT 100
--- NOTE | 2016-12-13 10:29 | PD ---
HPI Chief Complaint: Cardiac Complaint Time Seen by Provider: 09:57 Travel History International Travel<30 days: No Contact w/Intl Traveler<30days: No Traveled to known affect area: No History of Present Illness HPI Patient is a 56-year-old female who presents to emergency room with complaints of cough for the past 3 days. The past 3 days, she has had a productive cough, reports that she has had a fever temperature of 101. Patient reports that when she coughs, she is coughing up bile. Reports that her chest does feel congested and reports "my chest hurts me when I cough." Patient denies sick contacts. NO recent travels. Reports that she develops pneumonia often and reports, "this feels like I have pneumonia." Patient is a nonsmoker PFSH Past Medical History Hx Anticoagulant Therapy: No Asthma: No Blood Disorders: No Anxiety: Yes Depression: No Heart Rhythm Problems: No Cancer: Yes (kidney) Cardiovascular Problems: Yes ([place]) High Cholesterol: No Chemotherapy: Yes Chest Pain: No Congestive Heart Failure: No COPD: No Cerebrovascular Accident: Yes Diabetes: No Diminished Hearing: No Endocrine: No Gastrointestinal Disorders: Yes GERD: No Genitourinary: Yes (RIGHT NEPHRECTOMY) Headaches: Yes Hiatal Hernia: Yes Hypertension: No Immune Disorder: No Implanted Vascular Access Dvce: No Kidney Stones: No Musculoskeletal: No Neurologic: No Psychiatric: Yes Reproductive: No Respiratory: No Immunizations Current: Yes Migraines: Yes Myocardial Infarction: Yes (2005) Pneumonia: Yes Radiation Therapy: No Renal Failure: No Seizures: Yes Sleep Apnea: No Thyroid Disease: No Ulcer: No Tetanus Vaccination: < 5 Years Influenza Vaccination: Yes Menopausal: Yes : 1 Para: 1 Miscarriage: 0 : 0 Ectopic : No Ovarian Cysts: No Dilation and Curettage (D&C): Yes Tubal Ligation: Yes Past Surgical History Abdominal Surgery: Yes (total gastrectomy w/pouch 2002, hernia repair) Appendectomy: Yes Cardiac Surgery: Yes Cholecystectomy: Yes Genitourinary Surgery: Yes (RIGHT NEPHRECTOMY) Hysterectomy: Yes (ONLY TUBES TIED, NOT HYSTERECTOMY) Thoracic Surgery: No Tonsillectomy: Yes Other Surgery: Yes (tot gastrectomy) Social History Alcohol Use: No Tobacco Use: No Substance Use: No Allergies-Medications (Allergen,Severity, Reaction): Coded Allergies: Compazine (Verified Allergy, Severe, Shortness of Breath, 12/13/16) Gadolinium Derivatives (Verified Allergy, Severe, Anaphylaxis, 12/13/16) Lobster (Verified Allergy, Severe, Anaphylaxis, 12/13/16) Morphine (Verified Allergy, Severe, Hives, 12/13/16) Penicillin (Verified Allergy, Severe, Rash, 12/13/16) Phenergan (Verified Allergy, Severe, Shortness of Breath, 12/13/16) Reglan (Verified Allergy, Severe, Shortness of Breath, 12/13/16) Sulfa (Verified Allergy, Severe, Rash, 12/13/16) Tigan (Verified Allergy, Severe, Shortness of Breath, 12/13/16) Toradol (Verified Allergy, Severe, Shortness of Breath, 12/13/16) Zofran (Verified Allergy, Severe, Shortness of Breath, 12/13/16) Reported Meds & Prescriptions Reported Meds & Active Scripts Active Doxycycline Hyclate 100 Mg Cap 100 Mg PO BID Diphenhydramine (Diphenhydramine HCl) 25 Mg Cap 25 Mg PO Q6H PRN Reported Ambien (Zolpidem Tartrate) 10 Mg Tab 10 Mg PO HS PRN Dilaudid (Hydromorphone HCl) 4 Mg Tab 6 Mg PO 5 TIMES A DAY PRN Valium (Diazepam) 10 Mg Tab 10 Mg PO TID Buspirone (Buspirone HCl) 7.5 Mg Tab 7.5 Mg PO BID Cyanocobalamin Inj (Cyanocobalamin) 1,000 Mcg/Ml Inj 1,000 Mcg IM Q30D Review of Systems General / Constitutional: No: Fever Eyes: No: Visual changes HENT: No: Headaches Cardiovascular: No: Chest Pain or Discomfort Respiratory: Positive: Cough, Shortness of Breath Gastrointestinal: No: Abdominal Pain Genitourinary: No: Dysuria Musculoskeletal: No: Pain Skin: No Rash Neurologic: No: Weakness Psychiatric: No: Depression Endocrine: No: Polydipsia Hematologic/Lymphatic: No: Easy Bruising Physical Exam Narrative GENERAL: Nad SKIN: Focused skin assessment warm/dry. HEAD: Atraumatic. Normocephalic. EYES: Pupils equal and round. No scleral icterus. No injection or drainage. ENT: No nasal bleeding or discharge. Mucous membranes pink and moist. NECK: Trachea midline. No JVD. CARDIOVASCULAR: Regular rate and rhythm. No murmur appreciated. RESPIRATORY: No accessory muscle use. Clear to auscultation. Breath sounds equal bilaterally. No wheezing/rhonchi or rales on exam GASTROINTESTINAL: Abdomen soft, non-tender, nondistended. Hepatic and splenic margins not palpable. MUSCULOSKELETAL: No obvious deformities. No clubbing. No cyanosis. No edema. NEUROLOGICAL: Awake and alert. No obvious cranial nerve deficits. Motor grossly within normal limits. Normal speech. PSYCHIATRIC: Appropriate mood and affect; insight and judgment normal. Data Data Last Documented VS Vital Signs Date Time Temp Pulse Resp B/P Pulse Ox O2 Delivery O2 Flow Rate FiO2 12/13/16 10:14 16 100 Room Air 12/13/16 09:34 98.3 65 176/85 Orders Electrocardiogram (12/13/16 09:57) Ecg Monitoring (12/13/16 09:57) Oximetry (12/13/16 09:57) Chest, Pa & Lat (12/13/16 09:57) Doxycycline (Vibramycin) (12/13/16 10:45) MDM Medical Decision Making Medical Screen Exam Complete: Yes Emergency Medical Condition: Yes Interpretation(s) EKG at 1006: Sinus mima at 58bpm, qt/qtc: 434/432, no acute st or t wave changes, lbbb, ekg similar to previous ekg Vital Signs Date Time Temp Pulse Resp B/P Pulse Ox O2 Delivery O2 Flow Rate FiO2 12/13/16 10:14 16 100 Room Air 12/13/16 09:47 16 98 Room Air 12/13/16 09:34 98.3 65 15 176/85 98 Differential Diagnosis Differential includes pneumonia, viral syndrome, bronchitis, ACS though unlikely Narrative Course 56 year old female who presents to emergency room with complaints of cough and fever for the past 3 days. Reports that when she coughs, her chest hurts, reports that her chest pain feels like a sharp and stabbing pain to her chest exacerbated with cough. Patient reports that symptoms are similar to when she has pneumonia in the past. EKG obtained - patient with no acute ekg changes - EKG similar to her past ekg's. VSS Vital Signs Date Time Temp Pulse Resp B/P Pulse Ox O2 Delivery O2 Flow Rate FiO2 12/13/16 10:14 16 100 Room Air 12/13/16 09:47 16 98 Room Air 12/13/16 09:34 98.3 65 15 176/85 98 Patient with no SIRS criteria, she is afebrile and not tachycardic or hypoxic xray of chest ordered to evaluate for possible pneumonia Last Impressions Chest X-Ray 12/13/16 0957 Signed Impressions: Service Date/Time: Wednesday, December 13, 2016 10:23 - CONCLUSION: Normal examination. Surgical clips scattered throughout the upper abdomen Ranulfo Mejia MD Patient with acute bronchitis, no evidence of pneumonia on her x-ray. Vital signs are stable. Plan to have patient follow up with primary care doctor and will have her return to emergency room as needed Diagnosis Primary Impression: Bronchitis Patient Instructions: General Instructions Additional Instructions: Please follow up with your primary care doctor in 24-48 hours Take all medications as prescribed Return to ER as needed Med/Other Pt SpecificInfo: Prescription(s) given Scripts Doxycycline Hyclate 100 Mg Lay656 Mg PO BID #20 CAP Ref 0 Prov:Shawna Lindsay DO 12/13/16 Disposition: 01 DISCHARGE HOME Condition: Stable Shawna Lindsay DO Dec 13, 2016 10:28
--- NOTE | 2016-12-13 10:32 | RADRPT ---
EXAM DATE/TIME: 12/13/2016 10:23 [facility] COMPARISON: CHEST PA & LAT, June 04, 2016, 18:06. INDICATIONS : Cough. MEDICAL HISTORY : Cerebrovascular disease. Seizures. Cardiovascular diseaseKidney cancer SURGICAL HISTORY : Appendectomy. Cholecystectomy. Hysterectomy. ENCOUNTER: Initial ACUITY: 3 days PAIN SCORE: 0/10 LOCATION: Bilateral chest FINDINGS: PA and lateral views of the chest demonstrate the lungs to be symmetrically aerated without evidence of mass, infiltrate or effusion. The cardiomediastinal contours are unremarkable. Osseous structure s are intact. CONCLUSION: Normal examination. Surgical clips scattered throughout the upper abdomen Ranulfo Mjeia MD on December 13, 2016 at 10:31 Board Certified Radiologist. This report was verified electronically.
[2016-12-13] MEDS ORDERED: DOXY100C PO (10:45)
[2016-12-13] MEDS ORDERED: DOXYCYCLINE HYCLATE 100 MG CAP PO ONE (10:45)
--- NOTE | 2016-12-13 12:14 | EKG ---
Date Performed: 12/13/2016 Time Performed: 10:06:01 PTAGE: 56 years EKG: SINUS BRADYCARDIA LEFT BUNDLE BRANCH BLOCK ABNORMAL ECG PREVIOUS TRACING : 12/01/2016 20.34 Compared to prior tracing no significant change DOCTOR: Arden Long Interpretating Date/Time 12/13/2016 12:12:09
== END 2016-12-13 10:58 | disposition home or self-care (01) ==
LOC: NEPC 09:32
DX: J40 Bronchitis, not specified as acute or chronic (principal); R00.1 Bradycardia, unspecified; I44.7 Left bundle-branch block, unspecified; R94.31 Abnormal electrocardiogram [ECG] [EKG]; F41.9 Anxiety disorder, unspecified; I25.2 Old myocardial infarction; R56.9 Unspecified convulsions; Z86.73 Personal history of transient ischemic attack (TIA), and cerebral infarction without residual deficits; Z79.899 Other long term (current) drug therapy
CPT/HCPCS: 71020; 93005

== ENCOUNTER 2017-01-03 13:30 | Emergency (ER) | payer BC ==
[~2017-01-03] VITALS: Ht 157.5 cm; Wt 40.0 kg
[~2017-01-03 13:30] MED LIST changes: +DOXY100C PO
[2017-01-03 13:33] VITALS: BP 113/74; PULSE 70; RESP 20; TEMP 97.4; O2SAT 100
[2017-01-03] MEDS ORDERED: LIDOCAINE VISCOUS 2% SOLN 15 ML UDC PO ONE (14:30)
[2017-01-03] MEDS ORDERED: ALUMINUM/MAGNESIUM/SIMETH 30 ML CUP PO ONE (14:30)
--- NOTE | 2017-01-03 14:30 | PD ---
HPI Chief Complaint: Abdominal Pain Time Seen by Provider: 13:53 Travel History International Travel<30 days: No Contact w/Intl Traveler<30days: No Traveled to known affect area: No History of Present Illness HPI Patient is seen with automotive lube technician Eugenie. Patient has long-standing history of chronic abdominal pain that hurts her on a daily basis. She takes around-the- clock Dilaudid. She comes in complaining of abdominal pain and a burning sensation in her upper abdomen. Denies vomiting or diarrhea or fever. Pain is no different than usual except for the burning sensation. Symptoms severity is reported as moderate PFSH Past Medical History Hx Anticoagulant Therapy: No Asthma: No Blood Disorders: No Anxiety: Yes Depression: No Heart Rhythm Problems: No Cancer: Yes (kidney) Cardiovascular Problems: Yes ([place]) High Cholesterol: No Chemotherapy: Yes Chest Pain: No Congestive Heart Failure: No COPD: No Cerebrovascular Accident: Yes Diabetes: No Diminished Hearing: No Endocrine: No Gastrointestinal Disorders: Yes GERD: No Genitourinary: Yes (RIGHT NEPHRECTOMY) Headaches: Yes Hiatal Hernia: Yes Hypertension: No Immune Disorder: No Implanted Vascular Access Dvce: No Kidney Stones: No Musculoskeletal: No Neurologic: No Psychiatric: Yes Reproductive: No Respiratory: No Immunizations Current: Yes Migraines: Yes Myocardial Infarction: Yes (2005) Pneumonia: Yes Radiation Therapy: No Renal Failure: No Seizures: Yes Sleep Apnea: No Thyroid Disease: No Ulcer: No Menopausal: Yes : 1 Para: 1 Miscarriage: 0 : 0 Ectopic : No Ovarian Cysts: No Dilation and Curettage (D&C): Yes Tubal Ligation: Yes Past Surgical History Abdominal Surgery: Yes (total gastrectomy w/pouch 2002, hernia repair) Appendectomy: Yes Cardiac Surgery: Yes Cholecystectomy: Yes Genitourinary Surgery: Yes (RIGHT NEPHRECTOMY) Hysterectomy: Yes (ONLY TUBES TIED, NOT HYSTERECTOMY) Thoracic Surgery: No Tonsillectomy: Yes Other Surgery: Yes (tot gastrectomy) Social History Alcohol Use: No Tobacco Use: No Substance Use: No Allergies-Medications (Allergen,Severity, Reaction): Coded Allergies: Compazine (Verified Allergy, Severe, Shortness of Breath, 01/03/17) Gadolinium Derivatives (Verified Allergy, Severe, Anaphylaxis, 01/03/17) Lobster (Verified Allergy, Severe, Anaphylaxis, 01/03/17) Morphine (Verified Allergy, Severe, Hives, 01/03/17) Penicillin (Verified Allergy, Severe, Rash, 01/03/17) Phenergan (Verified Allergy, Severe, Shortness of Breath, 01/03/17) Reglan (Verified Allergy, Severe, Shortness of Breath, 01/03/17) Sulfa (Verified Allergy, Severe, Rash, 01/03/17) Tigan (Verified Allergy, Severe, Shortness of Breath, 01/03/17) Toradol (Verified Allergy, Severe, Shortness of Breath, 01/03/17) Zofran (Verified Allergy, Severe, Shortness of Breath, 01/03/17) Reported Meds & Prescriptions Reported Meds & Active Scripts Active Doxycycline Hyclate 100 Mg Cap 100 Mg PO BID Diphenhydramine (Diphenhydramine HCl) 25 Mg Cap 25 Mg PO Q6H PRN Reported Ambien (Zolpidem Tartrate) 10 Mg Tab 10 Mg PO HS PRN Dilaudid (Hydromorphone HCl) 4 Mg Tab 6 Mg PO 5 TIMES A DAY PRN Valium (Diazepam) 10 Mg Tab 10 Mg PO TID Buspirone (Buspirone HCl) 7.5 Mg Tab 7.5 Mg PO BID Cyanocobalamin Inj (Cyanocobalamin) 1,000 Mcg/Ml Inj 1,000 Mcg IM Q30D Review of Systems General / Constitutional: No: Fever HENT: No: Headaches Cardiovascular: No: Chest Pain or Discomfort Respiratory: No: Cough Physical Exam Narrative GASTROINTESTINAL: Abdomen soft, non-tender, nondistended. Positive bowel sounds. No hepato-splenomegaly, or palpable masses. No guarding. RESPIRATORY: Respiratory effort unlabored, no retractions or use of accessory muscles. Breath sounds are clear and symmetric. CARDIOVASCULAR: Regular rate and rhythm without murmur. Extremities showed no edema or varicosities. SKIN: Focused skin assessment reveals no rash or ulcers. Skin is warm and dry. Palpation shows no induration or nodules. Data Data Last Documented VS Vital Signs Date Time Temp Pulse Resp B/P Pulse Ox O2 Delivery O2 Flow Rate FiO2 01/03/17 13:33 97.4 70 20 113/74 100 Room Air Orders Al-Mag Hy-Si 40-40-4 Mg/Ml Liq (Mag-Al P (01/03/17 14:30) Lidocaine 2% Viscous (Xylocaine 2% Visco (01/03/17 14:30) [facility] Medical Decision Making Medical Screen Exam Complete: Yes Emergency Medical Condition: Yes Medical Record Reviewed: Yes Differential Diagnosis Chronic abdominal pain, acute on chronic abdominal pain: Dyspepsia: Peptic ulcer Narrative Course I have reviewed the patient's electronic medical record. This is the patient's 22nd visit to the emergency room this year alone, almost all for abdominal pain Patient is had multiple negative workups in the past. She follows with GI physician monthly. She is a soft benign nontender abdomen and normal vital signs She does not look like she is in any pain She continually hounds me for IV Dilaudid. I don't think that is appropriate medical care I did give her Maalox and viscous lidocaine comminution for her dyspepsia symptoms Recommend she call her GI physician tomorrow for follow-up Diagnosis Primary Impression: Abdominal pain Qualified Code: R10.84 - Generalized abdominal pain Additional Impression: Dyspepsia Additional Instructions: The patient was advised to follow up with their physician and return if they worsen. Med/Other Pt SpecificInfo: Other Disposition: 01 DISCHARGE HOME Condition: Stable Emir Sage MD Jan 03, 2017 14:30
== END 2017-01-03 15:30 | disposition home or self-care (01) ==
LOC: NEPC 13:30
DX: R10.13 Epigastric pain (principal); G89.29 Other chronic pain
CPT/HCPCS: 99281

== ENCOUNTER 2017-01-04 09:51 | Observation (INO) | payer BC ==
[~2017-01-04] VITALS: Ht 157.5 cm; Wt 40.0 kg
[2017-01-04] VITALS (8 sets, daily range): BP systolic 124–173; BP diastolic 72–85; PULSE 54–75; RESP 15–22; TEMP 97.7–99.4; O2SAT 97–99
[~2017-01-04 09:51] MED LIST changes: -DOXY100C PO
[2017-01-04] MEDS ORDERED: ALUMINUM/MAGNESIUM/SIMETH 30 ML CUP PO ONE (10:15)
[2017-01-04] MEDS ORDERED: SODIUM CHLORIDE 0.9% FLUSH 10 ML FLUSH IV FLUSH PRN ×2 (10:15→13:45)
[2017-01-04] MEDS ORDERED: LIDOCAINE VISCOUS 2% SOLN 15 ML UDC PO ONE (10:15)
[2017-01-04] MEDS ORDERED: SODIUM CHLORID 0.9% 500 ML INJ 500 ML IV ONE (10:15)
--- NOTE | 2017-01-04 10:15 | PD ---
HPI Chief Complaint: GI Complaint Time Seen by Provider: 10:13 Travel History International Travel<30 days: No Contact w/Intl Traveler<30days: No Traveled to known affect area: No History of Present Illness HPI Patient is a 56-year-old female well known to this department for repeat presentations for acute on chronic abdominal pain. Patient was here yesterday for the same thing according to the provider's documentation the patient was very persistent for Dilaudid which she did not receive. Patient states she's been taking her by mouth Dilaudid at home without significant relief. She states the symptoms have been going on ever since she had her gastrectomy some years ago. She states that her current flares been going on for approximately 3 days. States mild nausea and she has been bringing up bile. States watery diarrhea and think she is dehydrated. States that sharp and she feels like "there is a hole in my stomach". PFSH Past Medical History Hx Anticoagulant Therapy: No Asthma: No Blood Disorders: No Anxiety: Yes Depression: No Heart Rhythm Problems: No Cancer: Yes (KIDNEY) Cardiovascular Problems: Yes High Cholesterol: No Chemotherapy: Yes Chest Pain: No Congestive Heart Failure: No COPD: No Cerebrovascular Accident: Yes Diabetes: No Diminished Hearing: No Endocrine: No Gastrointestinal Disorders: Yes GERD: No Genitourinary: Yes Headaches: Yes Hiatal Hernia: Yes Hypertension: No Immune Disorder: No Implanted Vascular Access Dvce: No Kidney Stones: No Musculoskeletal: No Neurologic: No Psychiatric: Yes Reproductive: No Respiratory: No Immunizations Current: Yes Migraines: Yes Myocardial Infarction: Yes (2005) Pneumonia: Yes Radiation Therapy: No Renal Failure: No Seizures: Yes Sleep Apnea: No Thyroid Disease: No Ulcer: No Menopausal: Yes : 1 Para: 1 Miscarriage: 0 : 0 Ectopic : No Ovarian Cysts: No Dilation and Curettage (D&C): Yes Tubal Ligation: Yes Past Surgical History Abdominal Surgery: Yes (total gastrectomy w/pouch 2002, hernia repair) Appendectomy: Yes Cardiac Surgery: Yes Cholecystectomy: Yes Genitourinary Surgery: Yes (RIGHT NEPHRECTOMY) Hysterectomy: Yes (ONLY TUBES TIED, NOT HYSTERECTOMY) Thoracic Surgery: No Tonsillectomy: Yes Other Surgery: Yes Social History Alcohol Use: No Tobacco Use: No Substance Use: No Allergies-Medications (Allergen,Severity, Reaction): Coded Allergies: Compazine (Verified Allergy, Severe, Shortness of Breath, 01/04/17) Gadolinium Derivatives (Verified Allergy, Severe, Anaphylaxis, 01/04/17) Lobster (Verified Allergy, Severe, Anaphylaxis, 01/04/17) Morphine (Verified Allergy, Severe, Hives, 01/04/17) Penicillin (Verified Allergy, Severe, Rash, 01/04/17) Phenergan (Verified Allergy, Severe, Shortness of Breath, 01/04/17) Reglan (Verified Allergy, Severe, Shortness of Breath, 01/04/17) Sulfa (Verified Allergy, Severe, Rash, 01/04/17) Tigan (Verified Allergy, Severe, Shortness of Breath, 01/04/17) Toradol (Verified Allergy, Severe, Shortness of Breath, 01/04/17) Zofran (Verified Allergy, Severe, Shortness of Breath, 01/04/17) Reported Meds & Prescriptions Reported Meds & Active Scripts Active Reported Ambien (Zolpidem Tartrate) 10 Mg Tab 10 Mg PO HS PRN Dilaudid (Hydromorphone HCl) 4 Mg Tab 6 Mg PO 5 TIMES A DAY PRN Valium (Diazepam) 10 Mg Tab 10 Mg PO TID Buspirone (Buspirone HCl) 7.5 Mg Tab 7.5 Mg PO BID Cyanocobalamin Inj (Cyanocobalamin) 1,000 Mcg/Ml Inj 1,000 Mcg IM Q30D Review of Systems Except as stated in HPI: all other systems reviewed are Neg Physical Exam Narrative GENERAL: Well-developed, thin sitting very comfortably in a stretcher in no obvious distress. SKIN: Focused skin assessment warm/dry. HEAD: Atraumatic. Normocephalic. EYES: Pupils equal and round. No scleral icterus. No injection or drainage. ENT: No nasal bleeding or discharge. Mucous membranes pink and moist. NECK: Trachea midline. No JVD. CARDIOVASCULAR: Regular rate and rhythm. No murmur appreciated. RESPIRATORY: No accessory muscle use. Clear to auscultation. Breath sounds equal bilaterally. GASTROINTESTINAL: Abdomen soft, non-tender, nondistended. Hepatic and splenic margins not palpable. No peritoneal signs. No rebound no percussive tenderness. MUSCULOSKELETAL: No obvious deformities. No clubbing. No cyanosis. No edema. NEUROLOGICAL: Awake and alert. No obvious cranial nerve deficits. Motor grossly within normal limits. Normal speech. PSYCHIATRIC: Appropriate mood and affect; insight and judgment normal. Data Data Last Documented VS Vital Signs Date Time Temp Pulse Resp B/P Pulse Ox O2 Delivery O2 Flow Rate FiO2 01/04/17 11:25 60 22 173/82 Room Air 01/04/17 10:35 98 01/04/17 09:55 97.7 Orders Complete Blood Count With Diff (01/04/17 10:13) Comprehensive Metabolic Panel (01/04/17 10:13) Lipase (01/04/17 10:13) Lactic Acid (01/04/17 10:13) Prothrombin Time / Inr (Pt) (01/04/17 10:13) Act Partial Throm Time (Ptt) (01/04/17 10:13) Ct Abd/Pel W Iv Contrast(Rout) (01/04/17 10:13) Iv Access Insert/Monitor (01/04/17 10:13) Ecg Monitoring (01/04/17 10:13) Oximetry (01/04/17 10:13) Sodium Chloride 0.9% Flush (Ns Flush) (01/04/17 10:15) Electrocardiogram (01/04/17 10:13) Al-Mag Hy-Si 40-40-4 Mg/Ml Liq (Mag-Al P (01/04/17 10:15) Lidocaine 2% Viscous (Xylocaine 2% Visco (01/04/17 10:15) Sodium Chlorid 0.9% 500 Ml Inj (Ns 500 M (01/04/17 10:15) Oral Contrast - Adult (01/04/17 10:20) Iohexol 350 Inj (Omnipaque 350 Inj) (01/04/17 12:19) Diphenhydramine Inj (Benadryl Inj) (01/04/17 13:00) Admit Order (Ed Use Only) (01/04/17 ) Vital Signs (Adult) Q4H (01/04/17 13:37) Activity Oob Ad Maliha (01/04/17 13:37) Diet Npo (01/04/17 Lunch) Sodium Chlor 0.9% 1000 Ml Inj (Ns 1000 M (01/04/17 13:37) Sodium Chloride 0.9% Flush (Ns Flush) (01/04/17 13:45) Sodium Chloride 0.9% Flush (Ns Flush) (01/04/17 21:00) Acetaminophen (Tylenol) (01/04/17 13:45) Ondansetron Inj (Zofran Inj) (01/04/17 13:45) Heparin Inj (Heparin Inj) (01/04/17 15:00) Scd Bilateral/Knee High MIGUEL.BID (01/04/17 13:37) Docusate Sodium-Senna (Ivonne-Colace) (01/04/17 21:00) Magnesium Hydroxide Liq (Milk Of Magnesi (01/04/17 13:45) Sennosides (Senokot) (01/04/17 13:45) Bisacodyl Supp (Dulcolax Supp) (01/04/17 13:45) Lactulose Liq (Lactulose Liq) (01/04/17 13:45) Labs Laboratory Tests Test 01/04/17 10:39 White Blood Count 4.1 TH/MM3 Red Blood Count 4.05 MIL/MM3 Hemoglobin 11.5 GM/DL Hematocrit 34.7 % Mean Corpuscular Volume 85.7 FL Mean Corpuscular Hemoglobin 28.4 PG Mean Corpuscular Hemoglobin 33.2 % Concent Red Cell Distribution Width 16.5 % Platelet Count 193 TH/MM3 Mean Platelet Volume 9.6 FL Neutrophils (%) (Auto) 81.0 % Lymphocytes (%) (Auto) 13.6 % Monocytes (%) (Auto) 4.9 % Eosinophils (%) (Auto) 0.5 % Basophils (%) (Auto) 0.0 % Neutrophils # (Auto) 3.3 TH/MM3 Lymphocytes # (Auto) 0.6 TH/MM3 Monocytes # (Auto) 0.2 TH/MM3 Eosinophils # (Auto) 0.0 TH/MM3 Basophils # (Auto) 0.0 TH/MM3 CBC Comment DIFF FINAL Differential Comment Prothrombin Time 10.6 SEC Prothromb Time International 1.0 RATIO Ratio Activated Partial 26.8 SEC Thromboplast Time Sodium Level 138 MEQ/L Potassium Level 4.4 MEQ/L Chloride Level 104 MEQ/L Carbon Dioxide Level 26.0 MEQ/L Anion Gap 8 MEQ/L Blood Urea Nitrogen 13 MG/DL Creatinine 0.73 MG/DL Estimat Glomerular Filtration 82 ML/MIN Rate Random Glucose 94 MG/DL Lactic Acid Level 1.9 mmol/L Calcium Level 9.3 MG/DL Total Bilirubin 0.2 MG/DL Aspartate Amino Transf 59 U/L (AST/SGOT) Alanine Aminotransferase 59 U/L (ALT/SGPT) Alkaline Phosphatase 101 U/L Total Protein 7.2 GM/DL Albumin 3.6 GM/DL Lipase 198 U/L MDM Medical Decision Making Medical Screen Exam Complete: Yes Emergency Medical Condition: Yes Interpretation(s) EKG shows sinus bradycardia left bundle-branch block, negative Sgargossa's criteria. Intervals otherwise within normal limits. This is an abnormal EKG. No change from 12/13/2016. Differential Diagnosis Acute on chronic abdominal pain, ileus, bowel obstruction, acute abdomen highly unlikely. Narrative Course Patient roomed in the emergency Department, GI cocktail was ordered. Multiple allergies to medications. Patient requesting Dilaudid on arrival. Discussed that given its her second presentation in 2 days for the same pain she states the intense that I would recommend a CAT scan of her abdomen and basic labs to exclude medical emergency. She was offered a GI cocktail and she adamantly declined. She is also refusing to take her oral contrast. We'll continue to evaluate in the emergency department. She appears comfortable I think that IV Dilaudid is not indicated at this time. Last 24 hours Impressions Abdomen/Pelvis CT 01/04/17 1013 Signed Impressions: Service Date/Time: Wednesday, January 04, 2017 11:53 - CONCLUSION: Probable ileus and the left lung base atelectasis and/or infiltrate. Aamir Becker MD Distress results with the patient and recommended admission to the hospital for ileus. Patient has been asked me for Dilaudid on a fairly regular and recurrent basis in the emergency department. I discussed with her that given her ileus narcotics are fairly contraindicated. She has several times asked me to make an exception for her and treat her chronic pain. I discussed with her that I would not be making any exceptions for her and treating her as medically appropriate. At this time she is calm and comfortable and given her ileus opiate-induced ileus needs to be considered and opiates are contraindicated this was explained to her several times that if she is admitted to the hospital she should not expect to have any narcotic pain medicine while in the hospital. She verbalized understanding and agreement and wanted to be admission to the hospital. She requests something for nausea and I discussed that she has multiple allergies to nausea medicine including Zofran and Reglan and Phenergan and Compazine. She requested Benadryl and I think this is reasonable for her. A dose was ordered. She was discussed with the [facility] hospitalist BARBARA for admission and they are agreeable. Diagnosis Primary Impression: Ileus Admitting Information Admitting Physician Requests: Observation Condition: Stable Wilmer Hyman MD Jan 04, 2017 10:15
[2017-01-04 10:53] LABS: AUTOMATED NEUTROPHIL # 3.3 TH/MM3 (1.8-7.7); EOSINOPHIL % 0.5 % (0.0-4.0); HEMATOCRIT 34.7 % (35.0-46.0); HEMO FLAGS DIFF FINAL; LYMPH % 13.6 % (9.0-44.0); LYMPHOCYTE # 0.6 TH/MM3 (1.0-4.8); MEAN CELL VOLUME 85.7 FL (80.0-100.0); MEAN CORPUSCULAR HEMOGLOBIN 28.4 PG (27.0-34.0); MEAN CORPUSCULAR HGB CONC 33.2 % (32.0-36.0); MONO % 4.9 % (0.0-8.0); PLATELET COUNT 193 TH/MM3 (150-450); RED BLOOD COUNT 4.05 MIL/MM3 (4.00-5.30); RED CELL DISTRIBUTION WIDTH 16.5 % (11.6-17.2); WHITE BLOOD COUNT 4.1 TH/MM3 (4.0-11.0)
[2017-01-04 11:07] LABS: APTT (PATIENT) 26.8 SEC (24.3-30.1); PROTHROMBIN TIME - PATIENT 10.6 SEC (9.8-11.6)
[2017-01-04 11:11] LABS: ALT (GPT) 59 U/L (10-53); ANION GAP 8 MEQ/L (5-15); AST (GOT) 59 U/L (15-37); BLOOD UREA NITROGEN 13 MG/DL (7-18); CHLORIDE 104 MEQ/L (98-107); GLOMERULAR FILTRATION RATE 82 ML/MIN (>89); POTASSIUM 4.4 MEQ/L (3.5-5.1); SODIUM (NA) 138 MEQ/L (136-145)
[2017-01-04 11:12] LABS: ALKALINE PHOSPHATASE 101 U/L (45-117); TOTAL BILIRUBIN ADULT 0.2 MG/DL (0.2-1.0)
[2017-01-04] MEDS ORDERED: IOHEXOL 350 MG/ML 10 ML VIAL (for RAD DIAG) IV ONE (12:19)
--- NOTE | 2017-01-04 12:34 | RADRPT ---
EXAM DATE/TIME: 01/04/2017 11:53 [facility] COMPARISON: ABDOMEN UPRIGHT ONLY, December 01, 2016, 20:32. INDICATIONS : Left abdomen pain . IV CONTRAST: 75 cc Omnipaque 350 (iohexol) IV ORAL CONTRAST: No oral contrast ingested. RADIATION DOSE: 4.49 CTDIvol (mGy) MEDICAL HISTORY : Cardiovascular disease. Hernia, hiatal. Seizures.Kidney cancer SURGICAL HISTORY : Hysterectomy. Appendectomy.Cholecystectomy.RT nephrectomy,gastrectomy ENCOUNTER: Initial ACUITY: 1 day PAIN SCALE: 7/10 LOCATION: Left Abdomen TECHNIQUE: Volumetric scanning of the abdomen and pelvis was performed. Using automated exposure control and ad justment of the mA and/or kV according to patient size, radiation dose was kept as low as reasonably achievable to obtain optimal diagnostic quality images. DICOM format image data is available electro nically for review and comparison. FINDINGS: CT Abdomen: The liver, spleen, pancreas, left kidney, adrenals are unremarkable. The right kidney is absent surgically. There are couple loops of small bowel slightly prominent in size with maximum diam eter of the 3.3 cm probably some degree of ileus and extensive postsurgical changes are present in th e abdomen and findings most likely represent an ileus. There is no evidence for any appreciable patho logical adenopathy, free fluid. Mild left lung base atelectasis and/or infiltrate is seen. CT pelvis: There is no evidence for mass, abscess formation, or any significant adenopathy within the pelvis. CONCLUSION: Probable ileus and the left lung base atelectasis and/or infiltrate. Aamir Becker MD on January 04, 2017 at 12:27 Board Certified Radiologist. This report was verified electronically.
[2017-01-04] MEDS ORDERED: diphenhydrAMINE HCL 50 MG/ML VIAL IV PUSH ONE (13:00)
[2017-01-04] MEDS ORDERED: MAGNESIUM HYDROXIDE SUSP 30 ML CUP PO PRN (13:45)
[2017-01-04] MEDS ORDERED: BISACODYL 10 MG SUPP RECTAL PRN (13:45)
[2017-01-04] MEDS ORDERED: ACETAMINOPHEN 325 MG TAB PO PRN (13:45)
[2017-01-04] MEDS ORDERED: LACTULOSE SYRUP 20 GM/30 ML CUP PO PRN (13:45)
[2017-01-04] MEDS ORDERED: SENNOSIDES 8.6 MG TAB PO PRN (13:45)
[2017-01-04] MEDS ORDERED: ONDANSETRON HCL 4 MG/2 ML VIAL IVP PRN (13:45)
--- NOTE | 2017-01-04 14:16 | EKG ---
Date Performed: 01/04/2017 Time Performed: 10:37:35 PTAGE: 56 years EKG: SINUS BRADYCARDIA WITH SINUS ARRHYTHMIA LEFT BUNDLE BRANCH BLOCK ABNORMAL ECG Compared to p rior tracing no significant change PREVIOUS TRACING : 12/13/2016 10.06 DOCTOR: Deion Hannon Interpretating Date/Time 01/04/2017 14:12:42
[2017-01-04] MEDS: HEPARIN SODIUM - SQ 10,000 UNITS/ML VIAL SQ SCH (17:13)
[2017-01-04] MEDS: SODIUM CHLOR 0.9% 1000 ML INJ 1,000 ML IV SCH ×2 (17:13→23:09)
--- NOTE | 2017-01-04 17:15 | HHI.HP ---
HPI Service [facility] Primary Care Physician No Primary Care Physician Admission Diagnosis Ileus, Chronic abdominal pain Diagnoses: Chief Complaint: abdominal pain Travel History International Travel<30 Days: No Contact w/Intl Traveler <30 Da: No Traveled to Known Affected Are: No History of Present Illness This is a 56-year-old female with significant past medical history of chronic abdominal pain with extensive GI workup, gastroparesis, previous pancreatitis, chronic opioid use, CAD, history of kidney cancer post-nephrectomy, history of embolic strokes, anxiety. Patient has had multiple admissions, so far this year she has visited the emergency room at least 22 times. She was in the emergency room yesterday with complaint of abdominal pain, at that time she was treated with Dilaudid and discharged in stable condition. She returns today with increasing abdominal pain, it is worse than her usual pain. Patient takes by mouth Dilaudid at home however this has not relieved pain. Indicates she's been nauseous but is not able to vomit because of her gastric surgery. Indicates she had a bowel movement today that was formed and brown however yesterday she had diarrhea. Denies any fever, no chills. Indicates that she's been trying to eat as she only weighed 80 pounds. She has been following up with a client service supervisor as outpatient but is not able to recall the name. During prior admissions, she was referred to a tertiary Center for further evaluation but she has not done so. In the emergency room, patient was evaluated. Laboratory workup was essentially unremarkable except for mild elevation in AST and ALT of 59. Lipase was 198. CT of the abdomen showed probable ileus and left lung base atelectasis or infiltrate. Patient was requesting Dilaudid, she was counseled extensively by the emergency room physician that based on the findings at the continuation of narcotics is contraindicated and that she will not be given any. Patient complaining of nausea, she has allergies to Compazine, Reglan, Tigan, and Zofran. States that she develops difficulty breathing. She requested Benadryl for nausea and this was given. At this time, she is very anxious, again concerned about her by mouth Dilaudid and when she can be restarted on it. She's also requesting her Valium as this also helps with her nausea. Patient is admitted for further evaluation and treatment. Review of Systems Constitutional: COMPLAINS OF: Weight loss, DENIES: Diaphoretic episodes, Fatigue, Fever, Weight gain, Chills, Dizziness, Change in appetite, Night Sweats Endocrine: DENIES: Abnorml menstrual pattern, Heat/cold intolerance, Polydipsia , Polyuria, Polyphagia Eyes: DENIES: Blurred vision, Diplopia, Eye inflammation, Eye pain, Vision loss , Photosensitivity, Double Vision Ears, nose, mouth, throat: DENIES: Tinnitus, Hearing loss, Vertigo, Nasal discharge, Oral lesions, Throat pain, Hoarseness, Ear Pain, Running Nose, Epistaxis, Sinus Pain, Toothache, Odynophagia Respiratory: DENIES: Apneas, Cough, Snoring, Wheezing, Hemoptysis, Sputum production, Shortness of breath Cardiovascular: DENIES: Chest pain, Palpitations, Syncope, Dyspnea on Exertion , PND, Lower Extremity Edema, Orthopnea, Claudication Gastrointestinal: COMPLAINS OF: Abdominal pain, Nausea, DENIES: Black stools, Bloody stools, Constipation, Diarrhea, Vomiting, Difficulty Swallowing, Anorexia Genitourinary: DENIES: Abnormal vaginal bleeding, Dysmenorrhea, Dyspareunia, Sexual dysfunction, Urinary frequency, Urinary incontinence, Urgency, Hematuria , Dysuria, Nocturia, Vaginal discharge Musculoskeletal: DENIES: Joint pain, Muscle aches, Stiffness, Joint Swelling, Back pain, Neck pain Integumentary: DENIES: Abnormal pigmentation, Pruritus, Rash, Nail changes, Breast masses, Breast skin changes, Nipple discharge Hematologic/lymphatic: DENIES: Bruising, Lymphadenopathy Immunologic/allergic: DENIES: Eczema, Urticaria Neurologic: DENIES: Abnormal gait, Headache, Localized weakness, Paresthesias, Seizures, Speech Problems, Tremor, Poor Balance Psychiatric: DENIES: Anxiety, Confusion, Mood changes, Depression, Hallucinations, Agitation, Suicidal Ideation, Homicidal Ideation, Delusions Past Family Social History Past Medical History 1. Anxiety. 2. History of kidney cancer, status post nephrectomy. 3. History of [place] in 2005. 4. History of tubal ligation in the past. 5. Pancreatitis 6. Chronic abd. pain with extensive GI work up 7. Malnutrition 8. Weight loss 9. Anxiety 10. Chronic opioid use. 11. Gastroparesis 12. Questionable seizures 13. PFO which led to embolic strokes Past Surgical History 1. Right nephrectomy 2. Tubal ligation 3. Gastrectomy with pouch 4. Hernia repair 5. Appendectomy 6. Cholecystectomy 7. Hysterectomy 8. Tonsillectomy 9. Fundoplication 10. PFO closure with commercial coordinator 11. EGD/colonoscopy Reported Medications Reported Meds & Active Scripts Active Reported Ambien (Zolpidem Tartrate) 10 Mg Tab 10 Mg PO HS PRN Dilaudid (Hydromorphone HCl) 4 Mg Tab 6 Mg PO 5 TIMES A DAY PRN Valium (Diazepam) 10 Mg Tab 10 Mg PO TID Buspirone (Buspirone HCl) 7.5 Mg Tab 7.5 Mg PO BID Cyanocobalamin Inj (Cyanocobalamin) 1,000 Mcg/Ml Inj 1,000 Mcg IM Q30D Allergies: Coded Allergies: Compazine (Verified Allergy, Severe, Shortness of Breath, 01/04/17) Gadolinium Derivatives (Verified Allergy, Severe, Anaphylaxis, 01/04/17) Lobster (Verified Allergy, Severe, Anaphylaxis, 01/04/17) Morphine (Verified Allergy, Severe, Hives, 01/04/17) Penicillin (Verified Allergy, Severe, Rash, 01/04/17) Phenergan (Verified Allergy, Severe, Shortness of Breath, 01/04/17) Reglan (Verified Allergy, Severe, Shortness of Breath, 01/04/17) Sulfa (Verified Allergy, Severe, Rash, 01/04/17) Tigan (Verified Allergy, Severe, Shortness of Breath, 01/04/17) Toradol (Verified Allergy, Severe, Shortness of Breath, 01/04/17) Zofran (Verified Allergy, Severe, Shortness of Breath, 01/04/17) Active Ordered Medications Inpatient Medications Acetaminophen (Tylenol) 650 mg Q4H PRN PO TEMP > 100.4; Start 01/04/17 at 13:45 Al Hydrox/Mg Hydrox/Simethicone (Mag-Al Plus Susp Liq) 30 ml ONCE ONCE PO ; Start 01/04/17 at 10:15; Stop 01/04/17 at 10:16; Status DC Bisacodyl (Dulcolax Supp) 10 mg DAILY PRN RECTAL SEVERE CONSITIPATION; Start at 13:45 Diphenhydramine HCl 25 mg 25 mg ONCE ONCE IV PUSH ; Start 01/04/17 at 13:00; Stop 01/04/17 at 13:01; Status DC Heparin Sodium (Porcine) (Heparin Inj) 5,000 units Q12H SQ ; Start 01/04/17 at 15:00 Lactulose (Lactulose Liq) 30 ml DAILY PRN PO SEVERE CONSITIPATION; Start at 13:45 Lidocaine HCl 15 ml 15 ml ONCE ONCE PO ; Start 01/04/17 at 10:15; Stop at 10:16; Status DC Magnesium Hydroxide (Milk Of Magnesia Liq) 30 ml Q12H PRN PO MILD - MODERATE CONSTIPATION; Start 01/04/17 at 13:45 Ondansetron HCl (Zofran Inj) 4 mg Q6H PRN IVP NAUSEA OR VOMITING; Start at 13:45; Stop 01/04/17 at 14:10; Status DC Senna/Docusate Sodium (Ivonne-Colace) 1 tab BID PO ; Start 01/04/17 at 21:00 Sennosides (Senokot) 17.2 mg Q12H PRN PO MODERATE - SEVERE CONSTIPATION; Start 01/04/17 at 13:45 Sodium Chloride (NS 1000 ml Inj) 1,000 ml @ 100 mls/hr Q10H IV ; Start at 13:37 Sodium Chloride (NS 500 ml Inj) 500 ml @ 500 mls/hr BOLUS ONCE IV Last administered on 01/04/17t 10:51; Start 01/04/17 at 10:15; Stop 01/04/17 at 11:14 ; Status DC Sodium Chloride (NS Flush) 2 ml BID IV FLUSH ; Start 01/04/17 at 21:00 Family History Mother had MS and COPD. Father had COPD. Social History lives with No ETOH no smoking no illegal drug use. Physical Exam Vital Signs Vital Signs Date Time Temp Pulse Resp B/P Pulse Ox O2 Delivery O2 Flow Rate FiO2 01/04/17 17:05 99.4 01/04/17 17:04 73 16 134/74 98 01/04/17 15:16 98.8 75 17 136/75 99 Room Air 01/04/17 11:25 60 22 173/82 Room Air 01/04/17 10:35 98 Room Air 01/04/17 09:55 97.7 56 15 137/85 98 Physical Exam GENERAL: This is a malnourished, thin female. SKIN: No rashes, ecchymoses or lesions. Cool and dry. HEAD: Atraumatic. Normocephalic. No temporal or scalp tenderness. EYES: Pupils equal round and reactive. Extraocular motions intact. No scleral icterus. No injection or drainage. ENT: Nose without bleeding, purulent drainage or septal hematoma. Throat without erythema, tonsillar hypertrophy or exudate. Uvula midline. Airway patent. NECK: Trachea midline. No JVD or lymphadenopathy. Supple, nontender, no meningeal signs. CARDIOVASCULAR: Regular rate and rhythm without murmurs, gallops, or rubs. RESPIRATORY: Clear to auscultation. Breath sounds equal bilaterally. No wheezes , rales, or rhonchi. GASTROINTESTINAL: Abdomen soft,diffusely tender, nondistended. Normoactive bowel sounds 4. No hepato-splenomegaly, or palpable masses. No guarding. MUSCULOSKELETAL: Extremities without clubbing, cyanosis, or edema. No joint tenderness, effusion, or edema noted. No calf tenderness. Negative Homans sign bilaterally. NEUROLOGICAL: Awake, alert oriented 3. No focal deficits. Laboratory Laboratory Tests Test 01/04/17 10:39 White Blood Count 4.1 Red Blood Count 4.05 Hemoglobin 11.5 Hematocrit 34.7 Mean Corpuscular Volume 85.7 Mean Corpuscular Hemoglobin 28.4 Mean Corpuscular Hemoglobin 33.2 Concent Red Cell Distribution Width 16.5 Platelet Count 193 Mean Platelet Volume 9.6 Neutrophils (%) (Auto) 81.0 Lymphocytes (%) (Auto) 13.6 Monocytes (%) (Auto) 4.9 Eosinophils (%) (Auto) 0.5 Basophils (%) (Auto) 0.0 Neutrophils # (Auto) 3.3 Lymphocytes # (Auto) 0.6 Monocytes # (Auto) 0.2 Eosinophils # (Auto) 0.0 Basophils # (Auto) 0.0 CBC Comment DIFF FINAL Differential Comment Prothrombin Time 10.6 Prothromb Time International 1.0 Ratio Activated Partial 26.8 Thromboplast Time Sodium Level 138 Potassium Level 4.4 Chloride Level 104 Carbon Dioxide Level 26.0 Anion Gap 8 Blood Urea Nitrogen 13 Creatinine 0.73 Estimat Glomerular Filtration 82 Rate Random Glucose 94 Lactic Acid Level 1.9 Calcium Level 9.3 Total Bilirubin 0.2 Aspartate Amino Transf 59 (AST/SGOT) Alanine Aminotransferase 59 (ALT/SGPT) Alkaline Phosphatase 101 Total Protein 7.2 Albumin 3.6 Lipase 198 Result Diagram: 01/04/17 1039 01/04/17 1039 Imaging Last Impressions Abdomen/Pelvis CT 01/04/17 1013 Signed Impressions: Service Date/Time: Wednesday, January 04, 2017 11:53 - CONCLUSION: Probable ileus and the left lung base atelectasis and/or infiltrate. Aamir Becker MD Assessment and Plan Problem List: (1) Abdominal pain (2) Ileus (3) Chronic pain (4) Chronic narcotic dependence (5) Gastroparesis (6) History of CVA (cerebrovascular accident) (7) GERD (gastroesophageal reflux disease) (8) Malnourished (9) CAD (coronary artery disease) (10) Hx of hiatal hernia (11) History of gastrectomy (12) hx right nephrectomy (13) Hx of renal cell cancer (14) Gastroenteritis (15) Elevated liver enzymes Assessment and Plan Admit to Dr. Leblanc 56-year-old female with history of chronic abdominal pain and multiple admissions and ER visits. Presents today with increasing abdominal pain, nausea. CT of the abdomen findings of probable ileus. -Keep patient nothing by mouth -Continue with normal saline at 100 hour -Continue with Benadryl as needed for nausea -Repeat KUB in the morning -If worsening findings, we'll consult surgery. Acute on chronic abdominal pain, chronic narcotic use Drug-seeking behavior -Patient has been counseled extensively about her use of narcotics and worsening of her abdominal pain, ileus and gastroparesis. -At this time, no narcotics will be initiated. History of gastrectomy, hiatal hernia, gastroparesis Recommend that she continue to follow with GI as outpatient -Pepcid 20 mg IV twice a day will be initiated Elevated liver enzymes, -Repeat LFTs in the morning Heparin for DVT prophylaxis Pepcid for GI prophylaxis Plan of care has been discussed with the patient, attending and registered nurse. Further management of the patient will be dependent on the hospital course This patient was seen by myself and Dr. Leblanc, this H&P is written on his behalf Problem Qualifiers (1) Abdominal pain: Qualified Code: R10.84 - Generalized abdominal pain (2) Chronic pain: Qualified Code: G89.4 - Chronic pain syndrome (3) GERD (gastroesophageal reflux disease): Qualified Code: K21.9 - Gastroesophageal reflux disease, esophagitis presence not specified (4) CAD (coronary artery disease): Qualified Code: I25.10 - Coronary artery disease involving [place] coronary artery of [place] heart without angina pectoris Leatha Levine Jan 04, 2017 17:15
[2017-01-04] MEDS ORDERED: LORazepam 2 MG/ML VIAL IV PUSH PRN (18:00)
[2017-01-04] MEDS ORDERED: PILL SPLITTER OTHER PRN (18:15)
[2017-01-04] MEDS: DOCUSATE SODIUM 50 MG/SENNA 8.6 MG TAB PO SCH ×2 (20:46→21:00)
[2017-01-04] MEDS: busPIRone HCL 5 MG TAB PO SCH (20:46)
[2017-01-04] MEDS: FAMOTIDINE 20 MG/2 ML VIAL IV PUSH SCH (20:46)
[2017-01-04] MEDS: SODIUM CHLORIDE 0.9% FLUSH 10 ML FLUSH IV FLUSH SCH (20:47)
[2017-01-05] MEDS: ZOLPIDEM TARTRATE 10 MG TAB PO PRN ×2 (00:08→23:05)
[2017-01-05] MEDS: HEPARIN SODIUM - SQ 10,000 UNITS/ML VIAL SQ SCH ×2 (02:34→16:13)
[2017-01-05 04:08] VITALS: BP 131/77; PULSE 55; RESP 18; TEMP 98.4; O2SAT 98
[2017-01-05] MEDS ORDERED: DULC100C PO (04:21)
--- NOTE | 2017-01-05 06:59 | RADRPT ---
EXAM DATE/TIME: 01/05/2017 06:46 [facility] COMPARISON: CT ABDOMEN & PELVIS W CONTRAST, January 04, 2017, 11:53. INDICATIONS : Ileus. Abdominal pain. MEDICAL HISTORY : Cardiovascular disease. Hernia, hiatal. Seizures.Kidney cancer SURGICAL HISTORY : Hysterectomy. Appendectomy.Cholecystectomy.RT nephrectomy,gastrectomy ENCOUNTER: Initial ACUITY: 2 days PAIN SCORE: 7/10 LOCATION: abdomen. FINDINGS: Spine views of the abdomen demonstrate air throughout the colon without evidence of abnormal dilation . No evidence of free air. Multiple surgical clips overlying the left upper quadrant and right upper quadrant as well as the right pelvis secondary to prior right nephrectomy. The lung bases are clear. . CONCLUSION: Air within the colon may reflect ileus. No evidence of bowel obstruction. No evidence of free air.. Nena Redding MD on January 05, 2017 at 6:54 Board Certified Radiologist. This report was verified electronically.
[2017-01-05 07:11] VITALS: BP 127/76; PULSE 60; RESP 20; TEMP 98.3; O2SAT 97
--- NOTE | 2017-01-05 07:36 | HHI.DCPOC ---
Discharge Care Plan Diagnosis: (1) Abdominal pain Your Health Problems Are: Appetite Changes Irregular Bowel Function Goals to Promote Your Health * To prevent worsening of your condition and complications * To maintain your health at the optimal level Directions to Meet Your Goals Take your medications as prescribed Follow your dietary instruction Follow activity as directed Keep your appointments as scheduled Take your immunizations and boosters as scheduled If your symptoms worsen call your PCP, if no PCP go to Urgent Care Center or Emergency Room Smoking is Dangerous to Your Health. Avoid second hand smoke Call the 24-hour hour crisis hotline for domestic abuse at Leatha LevineP Jan 05, 2017 07:36
--- NOTE | 2017-01-05 07:40 | HHI.PR ---
Subjective Remarks per nursing, pt. constantly requesting Ativan and pain meds "when I am going to be restarted on my medications" no n/v diffuse abd pain wants to take liquids d/w narcotic use, states "that is not a conversation I want to have" "I'm trying to wean myself off from Dilaudid" Objective Objective Results - Vital Signs Date Time Temp Pulse Resp B/P Pulse Ox O2 Delivery O2 Flow Rate FiO2 01/05/17 07:11 98.3 60 20 127/76 97 01/05/17 04:08 98.4 55 18 131/77 98 01/04/17 23:48 99.1 54 18 138/83 98 01/04/17 20:03 99.1 66 20 124/72 97 01/04/17 17:05 99.4 01/04/17 17:04 73 16 134/74 98 01/04/17 15:16 98.8 75 17 136/75 99 Room Air 01/04/17 11:25 60 22 173/82 Room Air 01/04/17 10:35 98 Room Air 01/04/17 09:55 97.7 56 15 137/85 98 Result Diagram: 01/04/17 1039 01/04/17 1039 Imaging Last Impressions Abdomen/Pelvis CT 01/04/17 1013 Signed Impressions: Service Date/Time: Wednesday, January 04, 2017 11:53 - CONCLUSION: Probable ileus and the left lung base atelectasis and/or infiltrate. Aamir Becker MD Other Results Laboratory Tests Test 01/04/17 10:39 White Blood Count 4.1 Red Blood Count 4.05 Hemoglobin 11.5 Hematocrit 34.7 Mean Corpuscular Volume 85.7 Mean Corpuscular Hemoglobin 28.4 Mean Corpuscular Hemoglobin 33.2 Concent Red Cell Distribution Width 16.5 Platelet Count 193 Mean Platelet Volume 9.6 Neutrophils (%) (Auto) 81.0 Lymphocytes (%) (Auto) 13.6 Monocytes (%) (Auto) 4.9 Eosinophils (%) (Auto) 0.5 Basophils (%) (Auto) 0.0 Neutrophils # (Auto) 3.3 Lymphocytes # (Auto) 0.6 Monocytes # (Auto) 0.2 Eosinophils # (Auto) 0.0 Basophils # (Auto) 0.0 CBC Comment DIFF FINAL Differential Comment Prothrombin Time 10.6 Prothromb Time International 1.0 Ratio Activated Partial 26.8 Thromboplast Time Sodium Level 138 Potassium Level 4.4 Chloride Level 104 Carbon Dioxide Level 26.0 Anion Gap 8 Blood Urea Nitrogen 13 Creatinine 0.73 Estimat Glomerular Filtration 82 Rate Random Glucose 94 Lactic Acid Level 1.9 Calcium Level 9.3 Total Bilirubin 0.2 Aspartate Amino Transf 59 (AST/SGOT) Alanine Aminotransferase 59 (ALT/SGPT) Alkaline Phosphatase 101 Total Protein 7.2 Albumin 3.6 Lipase 198 ROS General: No: Fatigue, Weakness HEENT: No: Sore Throat, Dysphagia Cardiac: No: Chest Pain, Edema, Palpitations Pulmonary: No: Cough, SOB, Wheezing GI: Abdominal Pain /[place]: No: Dysuria, Urgency Neuro/MS: No: Lightheaded, Confusion Psych: No: Anxiety, Depression Skin: No: Itching, Rash Physical Exam Physical Exam GENERAL: This is a malnourished, thin female. SKIN: No rashes, ecchymoses or lesions. Cool and dry. HEAD: Atraumatic. Normocephalic. No temporal or scalp tenderness. EYES: Pupils equal round and reactive. Extraocular motions intact. No scleral icterus. No injection or drainage. ENT: Nose without bleeding, purulent drainage or septal hematoma. Throat without erythema, tonsillar hypertrophy or exudate. Uvula midline. Airway patent. NECK: Trachea midline. No JVD or lymphadenopathy. Supple, nontender, no meningeal signs. CARDIOVASCULAR: Regular rate and rhythm without murmurs, gallops, or rubs. RESPIRATORY: Clear to auscultation. Breath sounds equal bilaterally. No wheezes , rales, or rhonchi. GASTROINTESTINAL: Abdomen soft,diffusely tender, nondistended. Normoactive bowel sounds 4. No hepato-splenomegaly, or palpable masses. No guarding. MUSCULOSKELETAL: Extremities without clubbing, cyanosis, or edema. No joint tenderness, effusion, or edema noted. No calf tenderness. Negative Homans sign bilaterally. NEUROLOGICAL: Awake, alert oriented 3. No focal deficits. Urinary Catheter: No Vascular Central Line Catheter: No A/P Diagnosis: (1) Abdominal pain (2) Ileus (3) Chronic pain (4) Chronic narcotic dependence (5) Gastroparesis (6) History of CVA (cerebrovascular accident) (7) GERD (gastroesophageal reflux disease) (8) Malnourished (9) CAD (coronary artery disease) (10) Hx of hiatal hernia (11) History of gastrectomy (12) hx right nephrectomy (13) Hx of renal cell cancer (14) Gastroenteritis (15) Elevated liver enzymes Assessment and Plan 56-year-old female with history of chronic abdominal pain and multiple admissions and ER visits. Presents today with increasing abdominal pain, nausea. CT of the abdomen findings of probable ileus. -Continue with normal saline at 100 hour -Continue with Benadryl as needed for nausea -Repeat KUB improved -no n/v, wants to eat. Will start clear liquid diet. If she tolerates well, plan to dc later Acute on chronic abdominal pain, chronic narcotic use Drug-seeking behavior -Patient has been counseled extensively about her use of narcotics and worsening of her abdominal pain, ileus and gastroparesis. -At this time, no narcotics will be initiated. -pt can benefit from rehab/counseling services, she doesn't appear willing to try. History of gastrectomy, hiatal hernia, gastroparesis Recommend that she continue to follow with GI as outpatient -Pepcid 20 mg IV twice a day Elevated liver enzymes, -Repeat LFTs pending Heparin for DVT prophylaxis Pepcid for GI prophylaxis poss dc today if she can tolerate diet D/W RN D/W Dr. Leblanc D/W pt This patient was seen by myself and Dr. Leblanc, this note is written on his behalf Problem Qualifiers (1) Abdominal pain: Qualified Code: R10.84 - Generalized abdominal pain (2) Chronic pain: Qualified Code: G89.4 - Chronic pain syndrome (3) GERD (gastroesophageal reflux disease): Qualified Code: K21.9 - Gastroesophageal reflux disease, esophagitis presence not specified (4) CAD (coronary artery disease): Qualified Code: I25.10 - Coronary artery disease involving [place] coronary artery of [place] heart without angina pectoris Leatha Levine Jan 05, 2017 07:40
[2017-01-05] MEDS: busPIRone HCL 5 MG TAB PO SCH ×2 (08:54→20:34)
[2017-01-05] MEDS: DOCUSATE SODIUM 50 MG/SENNA 8.6 MG TAB PO SCH ×3 (08:54→20:37)
[2017-01-05] MEDS: SODIUM CHLORIDE 0.9% FLUSH 10 ML FLUSH IV FLUSH SCH ×2 (08:55→21:00)
[2017-01-05] MEDS: FAMOTIDINE 20 MG/2 ML VIAL IV PUSH SCH ×2 (08:55→20:33)
[2017-01-05] MEDS: DIAZEPAM 10 MG TAB PO PRN ×2 (09:43→16:18)
[2017-01-05] MEDS: SODIUM CHLOR 0.9% 1000 ML INJ 1,000 ML IV SCH ×2 (09:43→17:40)
[2017-01-05 11:15] VITALS: BP 131/83; PULSE 58; RESP 18; TEMP 98.4; O2SAT 98
[2017-01-05 15:29] VITALS: BP 138/76; PULSE 58; RESP 18; TEMP 99.2; O2SAT 97
[2017-01-05 15:59] LABS: ALKALINE PHOSPHATASE 82 U/L (45-117); ALT (GPT) 37 U/L (10-53); AST (GOT) 18 U/L (15-37); INDIRECT BILIRUBIN 0.1 MG/DL (0.0-0.8); TOTAL BILIRUBIN ADULT 0.2 MG/DL (0.2-1.0)
[2017-01-05 19:18] VITALS: BP 126/86; PULSE 64; RESP 20; TEMP 98.5; O2SAT 98
[2017-01-05] MEDS: diphenhydrAMINE HCL 50 MG/ML VIAL IV PUSH PRN (20:45)
[2017-01-05 23:43] VITALS: BP 133/79; PULSE 61; RESP 18; TEMP 97.6; O2SAT 98
[2017-01-06] MEDS: DIAZEPAM 10 MG TAB PO PRN ×3 (00:09→16:40)
[2017-01-06] MEDS: diphenhydrAMINE HCL 50 MG/ML VIAL IV PUSH PRN ×2 (03:37→11:47)
[2017-01-06] MEDS: SODIUM CHLOR 0.9% 1000 ML INJ 1,000 ML IV SCH (03:38)
[2017-01-06 03:52] VITALS: BP 142/89; PULSE 57; RESP 18; TEMP 97.5; O2SAT 98
[2017-01-06 07:38] VITALS: BP 133/80; PULSE 61; RESP 20; TEMP 98.3; O2SAT 97
--- NOTE | 2017-01-06 08:25 | HHI.PR ---
Subjective Remarks pt. concerned about getting her medications Valium constantly requesting Dilaudid per nursing slept most of the night some dry heaves had liquids yesterday, feels ready to try regular foods, wants to pick from menu states that pain management doctor wants to insert pain pump, she is afraid supposed to have some type of MRI of abdomen has not followed up at [facility], only sees GI locally but can't recall name was told by PCP that she may have to be put on TPN at home doesn't want peg tube as this was offered before. Objective Objective Results - Vital Signs Date Time Temp Pulse Resp B/P Pulse Ox O2 Delivery O2 Flow Rate FiO2 01/06/17 07:38 98.3 61 20 133/80 97 01/06/17 03:52 97.5 57 18 142/89 98 01/05/17 23:43 97.6 61 18 133/79 98 01/05/17 19:18 98.5 64 20 126/86 98 01/05/17 15:29 99.2 58 18 138/76 97 01/05/17 11:15 98.4 58 18 131/83 98 I/O 01/05/17 01/05/17 01/05/17 01/06/17 01/06/17 01/06/17 07:00 15:00 23:00 07:00 15:00 23:00 Intake Total 450 ml 300 ml 1150 ml Balance 450 ml 300 ml 1150 ml Intake IV Total 450 ml 300 ml 1150 ml # Voids 2 1 Result Diagram: 01/04/17 1039 01/04/17 1039 Imaging Last Impressions Abdomen/Pelvis CT 01/04/17 1013 Signed Impressions: Service Date/Time: Wednesday, January 04, 2017 11:53 - CONCLUSION: Probable ileus and the left lung base atelectasis and/or infiltrate. Aamir Becker MD Other Results Laboratory Tests Test 01/05/17 14:20 Total Bilirubin 0.2 Direct Bilirubin LESS THAN 0.1 Indirect Bilirubin 0.1 Aspartate Amino Transf 18 (AST/SGOT) Alanine Aminotransferase 37 (ALT/SGPT) Alkaline Phosphatase 82 Total Protein 5.9 Albumin 3.0 ROS General: No: Fatigue, Weakness HEENT: No: Sore Throat, Dysphagia Cardiac: No: Chest Pain, Edema, Palpitations Pulmonary: No: Cough, SOB, Wheezing, Other GI: Abdominal Pain, N/V, No: BM, Diarrhea, Other /COUNTER STITCHER: No: Dysuria, Urgency, Other Neuro/MS: No: Lightheaded, Confusion Psych: Anxiety, No: Depression, Other Skin: No: Itching, Rash Physical Exam Physical Exam GENERAL: This is a malnourished, thin female. SKIN: No rashes, ecchymoses or lesions. Cool and dry. HEAD: Atraumatic. Normocephalic. No temporal or scalp tenderness. EYES: Pupils equal round and reactive. Extraocular motions intact. No scleral icterus. No injection or drainage. ENT: Nose without bleeding, purulent drainage or septal hematoma. Throat without erythema, tonsillar hypertrophy or exudate. Uvula midline. Airway patent. NECK: Trachea midline. No JVD or lymphadenopathy. Supple, nontender, no meningeal signs. CARDIOVASCULAR: Regular rate and rhythm without murmurs, gallops, or rubs. RESPIRATORY: Clear to auscultation. Breath sounds equal bilaterally. No wheezes , rales, or rhonchi. GASTROINTESTINAL: Abdomen soft,diffusely tender, nondistended. Normoactive bowel sounds 4. No hepato-splenomegaly, or palpable masses. No guarding. MUSCULOSKELETAL: Extremities without clubbing, cyanosis, or edema. No joint tenderness, effusion, or edema noted. No calf tenderness. Negative Homans sign bilaterally. NEUROLOGICAL: Awake, alert oriented 3. No focal deficits. Urinary Catheter: No Vascular Central Line Catheter: No A/P Diagnosis: (1) Abdominal pain (2) Ileus (3) Chronic pain (4) Chronic narcotic dependence (5) Gastroparesis (6) History of CVA (cerebrovascular accident) (7) GERD (gastroesophageal reflux disease) (8) Malnourished (9) CAD (coronary artery disease) (10) Hx of hiatal hernia (11) History of gastrectomy (12) hx right nephrectomy (13) Hx of renal cell cancer (14) Gastroenteritis (15) Elevated liver enzymes Assessment and Plan 56-year-old female with history of chronic abdominal pain and multiple admissions and ER visits. Presents today with increasing abdominal pain, nausea. CT of the abdomen findings of probable ileus. -dc IVF -Continue with Benadryl and Valdium as needed for nausea -Repeat KUB 01/05 improved -will adv diet Acute on chronic abdominal pain, chronic narcotic use Drug-seeking behavior -Patient has been counseled extensively about her use of narcotics and worsening of her abdominal pain, ileus and gastroparesis. -At this time, no narcotics will be initiated. -pt can benefit from rehab/counseling services, she doesn't appear willing to try. -pt f/u as OP with pain management History of gastrectomy, hiatal hernia, gastroparesis Recommend that she continue to follow with GI as outpatient -Pepcid 20 mg IV twice a day Elevated liver enzymes, -LFTs normal now Malnourished pt. weight is 80 Lbs -enc PO intake, small meals -in the past she was offered EES but compliance was questionable and may interact with meds. -Will adv to regular diet, she wants to eat. Heparin for DVT prophylaxis Pepcid for GI prophylaxis plan to dc today, can't sisal picker until 5pm f/u GI, pain management, PCP Diet-as tolerated Activity-as tolerated D/W RN D/W Dr. Leblanc D/W pt This patient was seen by myself and Dr. Leblanc, this note is written on his behalf Problem Qualifiers (1) Abdominal pain: Qualified Code: R10.84 - Generalized abdominal pain (2) Chronic pain: Qualified Code: G89.4 - Chronic pain syndrome (3) GERD (gastroesophageal reflux disease): Qualified Code: K21.9 - Gastroesophageal reflux disease, esophagitis presence not specified (4) CAD (coronary artery disease): Qualified Code: I25.10 - Coronary artery disease involving [place] coronary artery of [place] heart without angina pectoris Leatha Levine Jan 06, 2017 08:25
[2017-01-06] MEDS: FAMOTIDINE 20 MG/2 ML VIAL IV PUSH SCH (08:26)
[2017-01-06] MEDS: busPIRone HCL 5 MG TAB PO SCH (08:26)
[2017-01-06] MEDS: SODIUM CHLORIDE 0.9% FLUSH 10 ML FLUSH IV FLUSH SCH (08:26)
[2017-01-06] MEDS ORDERED: HEPARIN SODIUM - SQ 10,000 UNITS/ML VIAL SQ SCH (09:00)
[2017-01-06 11:50] VITALS: BP 129/82; PULSE 66; RESP 20; TEMP 98.9; O2SAT 97
--- NOTE | 2017-01-06 16:36 | HHI.DS ---
Discharge Summary Admission Date Jan 04, 2017 at 13:38 Discharge Date: Jan 06, 2017 Admitting Diagnosis Ileus, Chronic abdominal pain (1) Abdominal pain (2) Ileus (3) Chronic pain (4) Chronic narcotic dependence (5) Gastroparesis (6) History of CVA (cerebrovascular accident) (7) GERD (gastroesophageal reflux disease) (8) Malnourished (9) CAD (coronary artery disease) (10) Hx of hiatal hernia (11) History of gastrectomy (12) hx right nephrectomy (13) Hx of renal cell cancer (14) Gastroenteritis (15) Elevated liver enzymes CBC/BMP: 01/04/17 1039 01/04/17 1039 Significant Findings Laboratory Tests Test 01/04/17 01/05/17 10:39 14:20 Hemoglobin 11.5 GM/DL (11.6-15.3) Hematocrit 34.7 % (35.0-46.0) Neutrophils (%) (Auto) 81.0 % (16.0-70.0) Lymphocytes # (Auto) 0.6 TH/MM3 (1.0-4.8) Estimat Glomerular Filtration 82 ML/MIN (>89) Rate Aspartate Amino Transf 59 U/L (15-37) (AST/SGOT) Alanine Aminotransferase 59 U/L (10-53) (ALT/SGPT) Total Protein 5.9 GM/DL (6.4-8.2) Albumin 3.0 GM/DL (3.4-5.0) Imaging Last Impressions Abdomen X-Ray 01/05/17 0600 Signed Impressions: Service Date/Time: Thursday, January 05, 2017 06:46 - CONCLUSION: Air within the colon may reflect ileus. No evidence of bowel obstruction. No evidence of free air.. Nena Redding MD Abdomen/Pelvis CT 01/04/17 1013 Signed Impressions: Service Date/Time: Wednesday, January 04, 2017 11:53 - CONCLUSION: Probable ileus and the left lung base atelectasis and/or infiltrate. Aamir Becker MD Hospital Course This is a 56-year-old female with significant past medical history of chronic abdominal pain with extensive GI workup, gastroparesis, previous pancreatitis, chronic opioid use, CAD, history of kidney cancer post-nephrectomy, history of embolic strokes, anxiety. Patient has had multiple admissions, so far this year she has visited the emergency room at least 22 times. She was in the emergency room yesterday with complaint of abdominal pain, at that time she was treated with Dilaudid and discharged in stable condition. She returns today with increasing abdominal pain, it is worse than her usual pain. Patient takes by mouth Dilaudid at home however this has not relieved pain. Indicates she's been nauseous but is not able to vomit because of her gastric surgery. Indicates she had a bowel movement today that was formed and brown however yesterday she had diarrhea. Denies any fever, no chills. Indicates that she's been trying to eat as she only weighed 80 pounds. She has been following up with a generating station mechanic as outpatient but is not able to recall the name. During prior admissions, she was referred to a tertiary Center for further evaluation but she has not done so. In the emergency room, patient was evaluated. Laboratory workup was essentially unremarkable except for mild elevation in AST and ALT of 59. Lipase was 198. CT of the abdomen showed probable ileus and left lung base atelectasis or infiltrate. Patient was requesting Dilaudid, she was counseled extensively by the emergency room physician that based on the findings at the continuation of narcotics is contraindicated and that she will not be given any. Patient complaining of nausea, she has allergies to Compazine, Reglan, Tigan, and Zofran. States that she develops difficulty breathing. She requested Benadryl for nausea and this was given. At time of examination, she was very anxious, again concerned about her by mouth Dilaudid and when she can be restarted on it. She was also requesting her Valium as this also helps with her nausea. Patient was admitted for further evaluation and treatment. (1) Abdominal pain (2) Ileus (3) Chronic pain (4) Chronic narcotic dependence (5) Gastroparesis (6) History of CVA (cerebrovascular accident) (7) GERD (gastroesophageal reflux disease) (8) Malnourished (9) CAD (coronary artery disease) (10) Hx of hiatal hernia (11) History of gastrectomy (12) hx right nephrectomy (13) Hx of renal cell cancer (14) Gastroenteritis (15) Elevated liver enzymes During the course of the hospitalization, the following took place: 56-year-old female with history of chronic abdominal pain and multiple admissions and ER visits. Presented with increasing abdominal pain, nausea. CT of the abdomen findings of probable ileus. -Patient was admitted, put on IV fluids. Her narcotics were initiated. -Continued with Benadryl and Valdium as needed for nausea -Repeat KUB 01/05 improved -Diet was advanced, patient tolerated well. No nausea, no vomiting. Acute on chronic abdominal pain, chronic narcotic use Drug-seeking behavior -Patient was counseled extensively about her use of narcotics and worsening of her abdominal pain, ileus and gastroparesis. -no narcotics will be initiated. -pt can benefit from rehab/counseling services, she did not appear willing to try and did not want to speak about it -pt f/u as OP with pain management. Indicates that pain management recommended pain pump but she was afraid to undergo procedure. History of gastrectomy, hiatal hernia, gastroparesis Recommended that she continue to follow with GI as outpatient. Also discussed with patient the need to follow up at tertiary center such as [facility] or [facility]. -Pepcid 20 mg IV twice a day was given Elevated liver enzymes, -LFTs were followed, normal. Malnourished pt. weight is 80 Lbs -enc PO intake, small meals -in the past she was offered EES but compliance was questionable and may interact with meds. -tolerated diet well. Heparin for DVT prophylaxis Pepcid for GI prophylaxis Pt. stabilized, questionable ileus resolved.No N/V Discharged home and instructed to: f/u GI, pain management, PCP Diet-as tolerated Activity-as tolerated Pt Condition on Discharge: Stable Discharge Disposition: Discharge Home Discharge Instructions DIET: Follow Instructions for: As Tolerated, No Restrictions Activities you can perform: Weight Bearing as Marcella Follow up Referrals: Gastroenterology PCP Follow-up Continued Medications: Buspirone (Buspirone) 7.5 Mg Tab 30 MG PO TID Anxiety Ref 0 TAB Cyanocobalamin Inj (Cyanocobalamin Inj) 1,000 Mcg/Ml Inj 1000 MCG IM Q30D #1 Ref 0 VIAL Diazepam (Valium) 10 Mg Tab 10 MG PO TID Nausea/Vomiting Ref 0 TAB Docusate Sodium (Dulcolax Stool Softener) 100 Mg Cap 100 MG PO HS Constipation #60 Ref 0 CAP Hydromorphone (Dilaudid) 4 Mg Tab 6 MG PO 5 TIMES A DAY PRN Pain Management Ref 0 TAB Zolpidem (Ambien) 10 Mg Tab 10 MG PO HS PRN INSOMNIA Ref 0 TAB Leatha eLvine Jan 06, 2017 16:36
== END 2017-01-06 18:14 | disposition home or self-care (01) ==
LOC: NEPD 09:51 → NEDA 13:38 → NEPGCP 15:44
PROVIDERS: ADMIT Specialist; ATTEND Specialist
DX: R10.84 Generalized abdominal pain (principal); G89.4 Chronic pain syndrome; R74.8 Abnormal levels of other serum enzymes; R19.7 Diarrhea, unspecified; R06.00 Dyspnea, unspecified; R00.1 Bradycardia, unspecified; I49.8 Other specified cardiac arrhythmias; I44.7 Left bundle-branch block, unspecified; R94.31 Abnormal electrocardiogram [ECG] [EKG]; R63.4 Abnormal weight loss; I25.10 Atherosclerotic heart disease of native coronary artery without angina pectoris; I25.2 Old myocardial infarction; K21.9 Gastro-esophageal reflux disease without esophagitis; K31.84 Gastroparesis; F41.9 Anxiety disorder, unspecified; E46 Unspecified protein-calorie malnutrition; F11.20 Opioid dependence, uncomplicated; Z79.891 Long term (current) use of opiate analgesic; Z85.528 Personal history of other malignant neoplasm of kidney; Z86.73 Personal history of transient ischemic attack (TIA), and cerebral infarction without residual deficits; Z90.5 Acquired absence of kidney; Z90.3 Acquired absence of stomach [part of]; Z98.51 Tubal ligation status
CPT/HCPCS: 74000; 74177; 76937; 80053; 80076; 82948; 83605; 83690; 85025; 85610; 85730; 93005; 96361; 96365; 96366; 96372; 96375; 96376; 99285; G0378; J1200; J1644; J2060; J7030; J7040; Q9967

== ENCOUNTER 2017-01-07 23:57 | Observation (INO) | payer BC ==
[~2017-01-07] VITALS: Ht 157.5 cm; Wt 36.5 kg
[~2017-01-07 23:57] MED LIST changes: -DIPH25CA PO; +DULC100C PO
[2017-01-08] VITALS (7 sets, daily range): BP systolic 108–140; BP diastolic 58–82; PULSE 64–91; RESP 16–18; TEMP 98–98.9; O2SAT 95–99
[2017-01-08] MEDS ORDERED: ZOLO50TA PO (01:50)
[2017-01-08] MEDS ORDERED: FENT25DI T-DERMAL (01:51)
--- NOTE | 2017-01-08 01:59 | PD ---
HPI Chief Complaint: Abdominal Pain Time Seen by Provider: 01:49 Travel History International Travel<30 days: No Contact w/Intl Traveler<30days: No Traveled to known affect area: No History of Present Illness HPI This is a 56-year-old female with history chronic abdominal pain, status post gastrectomy,, presents today with complaints of continued abdominal pain with nausea and vomiting. The patient was admitted for 3 days and discharged yesterday from the hospital. She states she was doing okay at that time however today the symptoms started to recur. She denies any fevers, chills. She states that at the time of her last admission, she had an ileus that had resolved. There are no other complaints time of my examination. PFSH Past Medical History Hx Anticoagulant Therapy: No Asthma: No Blood Disorders: No Anxiety: Yes Depression: No Heart Rhythm Problems: No Cancer: Yes (KIDNEY) Cardiovascular Problems: Yes (STEMI 2004) High Cholesterol: No Chemotherapy: No Chest Pain: No Congestive Heart Failure: No COPD: No Cerebrovascular Accident: Yes Diabetes: No Diminished Hearing: No Endocrine: No Gastrointestinal Disorders: Yes GERD: No Genitourinary: Yes (kidney cancer, removed R kidney 2004) Headaches: Yes Hiatal Hernia: Yes Hypertension: No Immune Disorder: No Implanted Vascular Access Dvce: No Kidney Stones: No Musculoskeletal: No Neurologic: Yes (seizures ) Psychiatric: Yes Reproductive: No Respiratory: No Immunizations Current: Yes Migraines: Yes Myocardial Infarction: Yes (2005) Pneumonia: Yes Radiation Therapy: No Renal Failure: No Seizures: Yes Sleep Apnea: No Thyroid Disease: No Ulcer: No ?: Not Menopausal: Yes : 1 Para: 1 Miscarriage: 0 : 0 Ectopic : No Ovarian Cysts: No Tubal Ligation: Yes Past Surgical History Abdominal Surgery: Yes (total gastrectomy w/pouch 2002, hernia repair) Appendectomy: Yes Cardiac Surgery: Yes Cholecystectomy: Yes Genitourinary Surgery: Yes (RIGHT NEPHRECTOMY) Thoracic Surgery: No Tonsillectomy: Yes Other Surgery: Yes Social History Alcohol Use: No Tobacco Use: No Substance Use: No Allergies-Medications (Allergen,Severity, Reaction): Coded Allergies: Compazine (Verified Allergy, Severe, Shortness of Breath, 01/04/17) Gadolinium Derivatives (Verified Allergy, Severe, Anaphylaxis, 01/04/17) Lobster (Verified Allergy, Severe, Anaphylaxis, 01/04/17) Morphine (Verified Allergy, Severe, Hives, 01/04/17) Penicillin (Verified Allergy, Severe, Rash, 01/04/17) Phenergan (Verified Allergy, Severe, Shortness of Breath, 01/04/17) Reglan (Verified Allergy, Severe, Shortness of Breath, 01/04/17) Sulfa (Verified Allergy, Severe, Rash, 01/04/17) Tigan (Verified Allergy, Severe, Shortness of Breath, 01/04/17) Toradol (Verified Allergy, Severe, Shortness of Breath, 01/04/17) Zofran (Verified Allergy, Severe, Shortness of Breath, 01/04/17) Reported Meds & Prescriptions Reported Meds & Active Scripts Active Reported Fentanyl Patch 72 HR (Fentanyl) 25 Mcg/Hr Patch 25 Mcg T-DERMAL Q72H Zoloft (Sertraline HCl) 50 Mg Tab 50 Mg PO DAILY Dulcolax Stool Softener (Docusate Sodium) 100 Mg Cap 100 Mg PO HS Ambien (Zolpidem Tartrate) 10 Mg Tab 10 Mg PO HS PRN Dilaudid (Hydromorphone HCl) 4 Mg Tab 6 Mg PO 5 TIMES A DAY PRN Valium (Diazepam) 10 Mg Tab 10 Mg PO TID Buspirone (Buspirone HCl) 7.5 Mg Tab 30 Mg PO TID Cyanocobalamin Inj (Cyanocobalamin) 1,000 Mcg/Ml Inj 1,000 Mcg IM Q30D Review of Systems Except as stated in HPI: all other systems reviewed are Neg General / Constitutional: No: Fever, Chills HENT: No: Headaches, Neck Pain Cardiovascular: No: Chest Pain or Discomfort, Palpitations Respiratory: No: Cough, Shortness of Breath Gastrointestinal: Positive: Nausea, Vomiting, Abdominal Pain, No: Diarrhea Genitourinary: No: Frequency, Dysuria Musculoskeletal: No: Weakness, Pain Neurologic: No: Weakness, Headache Physical Exam Narrative GENERAL: Well-nourished, well-developed patient, in no acute respiratory distress. SKIN: Focused skin assessment warm/dry. HEAD: Normocephalic/atraumatic. EYES: No scleral icterus. No injection or drainage. NECK: Supple, trachea midline. No JVD or lymphadenopathy. CARDIOVASCULAR: Regular rate and rhythm without murmurs, gallops, or rubs. RESPIRATORY: Breath sounds equal bilaterally. No accessory muscle use. GASTROINTESTINAL: Abdomen thin, soft, nondistended. She had subjective discomfort to the periumbilical area. No rebound or guarding. MUSCULOSKELETAL: No cyanosis, or edema. NEUROLOGICAL: Awake and alert. Cranial nerves II through XII intact. Motor grossly within normal limits. Five out of 5 muscle strength in all muscle groups. Normal speech. Data Data Last Documented VS Vital Signs Date Time Temp Pulse Resp B/P Pulse Ox O2 Delivery O2 Flow Rate FiO2 01/08/17 00:02 98.0 78 16 138/82 98 Room Air Orders Complete Blood Count With Diff (01/08/17 01:49) Comprehensive Metabolic Panel (01/08/17 01:49) Lipase (01/08/17 01:49) Urinalysis - C+S If Indicated (01/08/17 01:49) Iv Access Insert/Monitor (01/08/17 01:49) Ecg Monitoring (01/08/17 01:49) Oximetry (01/08/17 01:49) Sodium Chlor 0.9% 1000 Ml Inj (Ns 1000 M (01/08/17 01:49) Sodium Chloride 0.9% Flush (Ns Flush) (01/08/17 02:00) Diphenhydramine Inj (Benadryl Inj) (01/08/17 02:00) Diazepam (Valium) (01/08/17 02:00) Abdomen, Upright Only (01/08/17 01:53) Hydromorphone Pf Inj (Dilaudid Pf Inj) (01/08/17 03:30) Diphenhydramine Inj (Benadryl Inj) (01/08/17 03:30) Admit Order (Ed Use Only) (01/08/17 03:37) Labs Laboratory Tests Test 01/08/17 02:20 White Blood Count 4.3 TH/MM3 Red Blood Count 4.35 MIL/MM3 Hemoglobin 12.1 GM/DL Hematocrit 37.7 % Mean Corpuscular Volume 86.5 FL Mean Corpuscular Hemoglobin 27.8 PG Mean Corpuscular Hemoglobin 32.1 % Concent Red Cell Distribution Width 16.5 % Platelet Count 202 TH/MM3 Mean Platelet Volume 9.3 FL Neutrophils (%) (Auto) 60.5 % Lymphocytes (%) (Auto) 29.3 % Monocytes (%) (Auto) 7.9 % Eosinophils (%) (Auto) 0.7 % Basophils (%) (Auto) 1.6 % Neutrophils # (Auto) 2.6 TH/MM3 Lymphocytes # (Auto) 1.3 TH/MM3 Monocytes # (Auto) 0.3 TH/MM3 Eosinophils # (Auto) 0.0 TH/MM3 Basophils # (Auto) 0.1 TH/MM3 CBC Comment DIFF FINAL Differential Comment Sodium Level 143 MEQ/L Potassium Level 3.5 MEQ/L Chloride Level 105 MEQ/L Carbon Dioxide Level 28.4 MEQ/L Anion Gap 10 MEQ/L Blood Urea Nitrogen 11 MG/DL Creatinine 0.89 MG/DL Estimat Glomerular Filtration 66 ML/MIN Rate Random Glucose 82 MG/DL Calcium Level 9.2 MG/DL Total Bilirubin 0.2 MG/DL Aspartate Amino Transf 25 U/L (AST/SGOT) Alanine Aminotransferase 46 U/L (ALT/SGPT) Alkaline Phosphatase 101 U/L Total Protein 7.4 GM/DL Albumin 3.8 GM/DL Lipase 160 U/L [facility] [place] Medical Decision Making Medical Screen Exam Complete: Yes Emergency Medical Condition: Yes Differential Diagnosis Recurrent ileus versus acute exacerbation of chronic abdominal pain versus gastroenteritis versus dehydration Narrative Course 56-year-old female with a history of gastrectomy, chronic abdominal pain, chronic nausea vomiting, who presents today with exacerbation of her pain and nausea vomiting. The patient was dismissed discharged 2 days ago for the same thing. Laboratory tests show no evidence of acute findings. The patient be admitted for observation and possible GI consult as she has multiple visits for the same thing. I discussed the case with Donato Bello covering for Dr. Leblanc. She'll be placed under observation status. Diagnosis Primary Impression: Intractable nausea and vomiting Additional Impression: acute on chronic abdominal pain. Eladio Robles MD Jan 08, 2017 01:59
[2017-01-08] MEDS ORDERED: DIAZEPAM 10 MG TAB PO ONE (02:00)
[2017-01-08] MEDS ORDERED: diphenhydrAMINE HCL 50 MG/ML VIAL IV PUSH ONE ×2 (02:00→03:30)
[2017-01-08] MEDS ORDERED: SODIUM CHLORIDE 0.9% FLUSH 10 ML FLUSH IV FLUSH PRN ×2 (02:00→04:45)
[2017-01-08] MEDS: SODIUM CHLOR 0.9% 1000 ML INJ 1,000 ML IV SCH ×2 (02:23→05:50)
[2017-01-08 02:47] LABS: AUTOMATED NEUTROPHIL # 2.6 TH/MM3 (1.8-7.7); BASOPHIL # 0.1 TH/MM3 (0-0.2); BASOPHIL % 1.6 % (0.0-2.0); EOSINOPHIL % 0.7 % (0.0-4.0); HEMATOCRIT 37.7 % (35.0-46.0); HEMO FLAGS DIFF FINAL; LYMPH % 29.3 % (9.0-44.0); LYMPHOCYTE # 1.3 TH/MM3 (1.0-4.8); MEAN CELL VOLUME 86.5 FL (80.0-100.0); MEAN CORPUSCULAR HEMOGLOBIN 27.8 PG (27.0-34.0); MEAN CORPUSCULAR HGB CONC 32.1 % (32.0-36.0); MONO % 7.9 % (0.0-8.0); NEUT % 60.5 % (16.0-70.0); PLATELET COUNT 202 TH/MM3 (150-450); RED BLOOD COUNT 4.35 MIL/MM3 (4.00-5.30); RED CELL DISTRIBUTION WIDTH 16.5 % (11.6-17.2); WHITE BLOOD COUNT 4.3 TH/MM3 (4.0-11.0)
[2017-01-08 03:08] LABS: ALT (GPT) 46 U/L (10-53); ANION GAP 10 MEQ/L (5-15); AST (GOT) 25 U/L (15-37); BICARBONATE 28.4 MEQ/L (21.0-32.0); BLOOD UREA NITROGEN 11 MG/DL (7-18); CHLORIDE 105 MEQ/L (98-107); GLOMERULAR FILTRATION RATE 66 ML/MIN (>89); POTASSIUM 3.5 MEQ/L (3.5-5.1); SODIUM (NA) 143 MEQ/L (136-145)
[2017-01-08 03:11] LABS: ALKALINE PHOSPHATASE 101 U/L (45-117); TOTAL BILIRUBIN ADULT 0.2 MG/DL (0.2-1.0)
--- NOTE | 2017-01-08 03:11 | RADRPT ---
EXAM DATE/TIME: 01/08/2017 02:34 [facility] COMPARISON: ABDOMEN [facility] ONLY, December 01, 2016, 20:32. EXTERNAL COMPARISON : INDICATIONS : Patient complains of abdominal pain and some vomiting. Evaluate for ileus. MEDICAL HISTORY : Cardiovascular disease. Hernia, hiatal. Seizures. Kidney cancer. SURGICAL HISTORY : Nephrectomy, right. Hysterectomy. Appendectomy.Cholecystectomy. Gastrectomy. ENCOUNTER: Initial ACUITY: 3 days PAIN SCORE: 8/10 LOCATION: Abdomen FINDINGS: The bowel gas pattern appears normal. No free air is identified. No organomegaly is evident. There ar e numerous surgical clips in the right side of the abdomen. No free air is identified. CONCLUSION: 1. No evidence of ileus or obstruction Edson Mahan MD on January 08, 2017 at 3:09 Board Certified Radiologist. This report was verified electronically.
[2017-01-08] MEDS ORDERED: HYDROmorphone HCL PF 1 MG/ML VIAL IVS ONE (03:30)
[2017-01-08] MEDS ORDERED: SODIUM CHLOR 0.9% 1000 ML INJ 1,000 ML IV SCH (04:33)
[2017-01-08 05:28] LABS: BACTERIA, URINE RARE /hpf; BLOOD, URINE TRACE (NEG); COMMENT (UR) CULTURE INDICATED; CULTURE IF INDICATED CULTURE INDICATED; GLUCOSE,URINE NEG (NEG); KETONE, URINE NEG (NEG); MUCUS URINE FEW /lpf (OCC); NITRITE,URINE NEG (NEG); PH, URINE 6.5 (5.0-8.5); SQUAMOUS EPITHELIAL CELL URINE 11 /hpf (0-5); TRANSITIONAL EPI CELLS, URINE 1 /hpf; URINE COLOR YELLOW (YELLW/STRAW)
[2017-01-08] MEDS ORDERED: cefTRIAXone INJ 1,000 MG in SODIUM CHLORIDE 0.9% INJ 100 ML IV ONE (05:45)
[2017-01-08] MEDS: ENOXAPARIN SODIUM 40 MG/0.4 ML SYRINGE SQ SCH (05:50)
[2017-01-08] MEDS: SODIUM CHLORIDE 0.9% FLUSH 10 ML FLUSH IV FLUSH SCH ×2 (07:51→22:49)
[2017-01-08] MEDS: diphenhydrAMINE HCL 50 MG/ML VIAL IV PUSH PRN ×3 (07:53→22:48)
--- NOTE | 2017-01-08 07:53 | HHI.HP ---
[facility] Admission Diagnosis Intractable nausea and vomiting, acute exacerbaton of abdominal pain Diagnoses: Chief Complaint: n/v, chronic abd pain Travel History International Travel<30 Days: No Contact w/Intl Traveler <30 Da: No Traveled to Known Affected Are: No History of Present Illness This is a 56-year-old female with significant past medical history of chronic abdominal pain with extensive GI workup, gastroparesis, previous pancreatitis, chronic opioid use, CAD, history of kidney cancer post-nephrectomy, history of embolic strokes, anxiety. Patient has had multiple admissions, is 22 times this year. She was actually admitted from 01/04/2017 to 01/06/2017 for recurrent abdominal pain and possible ileus. Condition improved, repeat x-ray was stable and she was discharged home. Patient returns back to the emergency room with intractable nausea vomiting, indicates that she doesn't vomit and she only produces bile color emesis. Denies any fever, no chills. States she is not eating much. Denies any chest pain, no shortness of breath. In the emergency room, patient was evaluated. Laboratory workup was unremarkable. Abdominal x- ray did not show any evidence of obstruction or ileus. Urinalysis positive for rare bacteria, large leukocyte esterase. Patient was given IV fluids and started on Rocephin. She received Benadryl for nausea as she is allergic to all other antiemetics. She received 1 mg of IV Dilaudid. At this time, patient is very concerned about her medications. She is again requesting her Dilaudid and is afraid that she will go into withdrawal. Indicates that she does have a prescription and that it is provided by her PCP. She's also requesting Valium. States that she is also on a fentanyl patch although it was not included on her prior medication reconciliation list, he states that she forgot to do so. Patient has no nausea, indicates that she is ready to eat. Patient has ongoing chronic abdominal pain for which she's had extensive GI workup. Indicates that she is due to see her commercial lines sales executive next week for a CT of the abdomen. Patient is admitted for further evaluation and treatment. Review of Systems Constitutional: DENIES: Diaphoretic episodes, Fatigue, Fever, Weight gain, Weight loss, Chills, Dizziness, Change in appetite, Night Sweats Endocrine: DENIES: Abnorml menstrual pattern, Heat/cold intolerance, Polydipsia , Polyuria, Polyphagia Eyes: DENIES: Blurred vision, Diplopia, Eye inflammation, Eye pain, Vision loss , Photosensitivity, Double Vision Ears, nose, mouth, throat: DENIES: Tinnitus, Hearing loss, Vertigo, Nasal discharge, Oral lesions, Throat pain, Hoarseness, Ear Pain, Running Nose, Epistaxis, Sinus Pain, Toothache, Odynophagia Respiratory: DENIES: Apneas, Cough, Snoring, Wheezing, Hemoptysis, Sputum production, Shortness of breath Cardiovascular: DENIES: Chest pain, Palpitations, Syncope, Dyspnea on Exertion , PND, Lower Extremity Edema, Orthopnea, Claudication Gastrointestinal: COMPLAINS OF: Abdominal pain, Nausea, Vomiting, DENIES: Black stools, Bloody stools, Constipation, Diarrhea, Difficulty Swallowing, Anorexia Genitourinary: DENIES: Abnormal vaginal bleeding, Dysmenorrhea, Dyspareunia, Sexual dysfunction, Urinary frequency, Urinary incontinence, Urgency, Hematuria , Dysuria, Nocturia, Vaginal discharge Musculoskeletal: DENIES: Joint pain, Muscle aches, Stiffness, Joint Swelling, Back pain, Neck pain Integumentary: DENIES: Abnormal pigmentation, Pruritus, Rash, Nail changes, Breast masses, Breast skin changes, Nipple discharge Hematologic/lymphatic: DENIES: Bruising, Lymphadenopathy Immunologic/allergic: DENIES: Eczema, Urticaria Neurologic: DENIES: Abnormal gait, Headache, Localized weakness, Paresthesias, Seizures, Speech Problems, Tremor, Poor Balance Psychiatric: COMPLAINS OF: Anxiety, Depression, DENIES: Confusion, Mood changes, Hallucinations, Agitation, Suicidal Ideation, Homicidal Ideation, Delusions Past Family Social History Past Medical History 1. Anxiety. 2. History of kidney cancer, status post nephrectomy. 3. History of [place] in 2005. 4. History of tubal ligation in the past. 5. Pancreatitis 6. Chronic abd. pain with extensive GI work up 7. Malnutrition 8. Weight loss 9. Anxiety 10. Chronic opioid use. 11. Gastroparesis 12. Questionable seizures 13. PFO which led to embolic strokes Past Surgical History 1. Right nephrectomy 2. Tubal ligation 3. Gastrectomy with pouch 4. Hernia repair 5. Appendectomy 6. Cholecystectomy 7. Hysterectomy 8. Tonsillectomy 9. Fundoplication 10. PFO closure with terminal worker 11. EGD/colonoscopy Reported Medications Reported Meds & Active Scripts Active Reported Fentanyl Patch 72 HR (Fentanyl) 25 Mcg/Hr Patch 25 Mcg T-DERMAL Q72H Zoloft (Sertraline HCl) 50 Mg Tab 50 Mg PO DAILY Dulcolax Stool Softener (Docusate Sodium) 100 Mg Cap 100 Mg PO HS Ambien (Zolpidem Tartrate) 10 Mg Tab 10 Mg PO HS PRN Dilaudid (Hydromorphone HCl) 4 Mg Tab 6 Mg PO 5 TIMES A DAY PRN Valium (Diazepam) 10 Mg Tab 10 Mg PO TID Buspirone (Buspirone HCl) 7.5 Mg Tab 30 Mg PO TID Cyanocobalamin Inj (Cyanocobalamin) 1,000 Mcg/Ml Inj 1,000 Mcg IM Q30D Allergies: Coded Allergies: Compazine (Verified Allergy, Severe, Shortness of Breath, 01/04/17) Gadolinium Derivatives (Verified Allergy, Severe, Anaphylaxis, 01/04/17) Lobster (Verified Allergy, Severe, Anaphylaxis, 01/04/17) Morphine (Verified Allergy, Severe, Hives, 01/04/17) Penicillin (Verified Allergy, Severe, Rash, 01/04/17) Phenergan (Verified Allergy, Severe, Shortness of Breath, 01/04/17) Reglan (Verified Allergy, Severe, Shortness of Breath, 01/04/17) Sulfa (Verified Allergy, Severe, Rash, 01/04/17) Tigan (Verified Allergy, Severe, Shortness of Breath, 01/04/17) Toradol (Verified Allergy, Severe, Shortness of Breath, 01/04/17) Zofran (Verified Allergy, Severe, Shortness of Breath, 01/04/17) Active Ordered Medications Inpatient Medications Ceftriaxone Sodium/Sodium Chloride (Rocephin Inj/NS Inj) 100 ml @ 200 mls/hr ONCE ONCE IV Last administered on 01/08/17 05:50; Start 01/08/17 at 05:45; Stop 01/08/17 at 06:14; Status DC Diazepam (Valium) 10 mg ONCE ONCE PO Last administered on 01/08/17 02:23; Start 01/08/17 at 02:00; Stop 01/08/17 at 02:01; Status DC Diphenhydramine HCl (Benadryl Inj) 25 mg ONCE ONCE IV PUSH Last administered on 01/08/17 02:23; Start 01/08/17 at 02:00; Stop 01/08/17 at 02:01; Status DC Diphenhydramine HCl 25 mg 25 mg Q4H PRN IV PUSH nausea; Start 01/08/17 at 04:45 Enoxaparin Sodium (Lovenox Inj) 40 mg Q24H SQ Last administered on 01/08/17 05: 50; Start 01/08/17 at 04:45 Hydromorphone HCl 1 mg 1 mg ONCE ONCE IVS Last administered on 01/08/17 03:28 ; Start 01/08/17 at 03:30; Stop 01/08/17 at 03:31; Status DC Sodium Chloride (NS 1000 ml Inj) 1,000 ml @ 100 mls/hr Q10H IV ; Start 01/08/17 at 04:33; Stop 01/08/17 at 04:37; Status DC Sodium Chloride (NS Flush) 2 ml BID IV FLUSH ; Start 01/08/17 at 09:00 Family History Mother had MS and COPD. Father had COPD. Social History lives with No ETOH no smoking no illegal drug use. Physical Exam Vital Signs Vital Signs Date Time Temp Pulse Resp B/P Pulse Ox O2 Delivery O2 Flow Rate FiO2 01/08/17 06:00 80 16 140/64 98 01/08/17 04:00 74 16 130/81 95 Room Air 01/08/17 00:02 98.0 78 16 138/82 98 Room Air Physical Exam GENERAL: This is a malnourished, thin female. SKIN: No rashes, ecchymoses or lesions. Cool and dry. HEAD: Atraumatic. Normocephalic. No temporal or scalp tenderness. EYES: Pupils equal round and reactive. Extraocular motions intact. No scleral icterus. No injection or drainage. ENT: Nose without bleeding, purulent drainage or septal hematoma. Throat without erythema, tonsillar hypertrophy or exudate. Uvula midline. Airway patent. NECK: Trachea midline. No JVD or lymphadenopathy. Supple, nontender, no meningeal signs. CARDIOVASCULAR: Regular rate and rhythm without murmurs, gallops, or rubs. RESPIRATORY: Clear to auscultation. Breath sounds equal bilaterally. No wheezes , rales, or rhonchi. GASTROINTESTINAL: Abdomen soft,diffusely tender, nondistended. Normoactive bowel sounds 4. No hepato-splenomegaly, or palpable masses. No guarding. MUSCULOSKELETAL: Extremities without clubbing, cyanosis, or edema. No joint tenderness, effusion, or edema noted. No calf tenderness. Negative Homans sign bilaterally. NEUROLOGICAL: Awake, alert oriented 3. No focal deficits. Laboratory Laboratory Tests Test 01/08/17 01/08/17 02:20 04:50 White Blood Count 4.3 Red Blood Count 4.35 Hemoglobin 12.1 Hematocrit 37.7 Mean Corpuscular Volume 86.5 Mean Corpuscular Hemoglobin 27.8 Mean Corpuscular Hemoglobin 32.1 Concent Red Cell Distribution Width 16.5 Platelet Count 202 Mean Platelet Volume 9.3 Neutrophils (%) (Auto) 60.5 Lymphocytes (%) (Auto) 29.3 Monocytes (%) (Auto) 7.9 Eosinophils (%) (Auto) 0.7 Basophils (%) (Auto) 1.6 Neutrophils # (Auto) 2.6 Lymphocytes # (Auto) 1.3 Monocytes # (Auto) 0.3 Eosinophils # (Auto) 0.0 Basophils # (Auto) 0.1 CBC Comment DIFF FINAL Differential Comment Sodium Level 143 Potassium Level 3.5 Chloride Level 105 Carbon Dioxide Level 28.4 Anion Gap 10 Blood Urea Nitrogen 11 Creatinine 0.89 Estimat Glomerular Filtration 66 Rate Random Glucose 82 Calcium Level 9.2 Total Bilirubin 0.2 Aspartate Amino Transf 25 (AST/SGOT) Alanine Aminotransferase 46 (ALT/SGPT) Alkaline Phosphatase 101 Total Protein 7.4 Albumin 3.8 Lipase 160 Urine Color YELLOW Urine Turbidity HAZY Urine pH 6.5 Urine Specific [place] 1.014 Urine Protein TRACE Urine Glucose (UA) NEG Urine Ketones NEG Urine Occult Blood TRACE Urine Nitrite NEG Urine Bilirubin NEG Urine Urobilinogen LESS THAN 2.0 Urine Leukocyte Esterase LARGE Urine RBC 8 Urine WBC 57 Urine Squamous Epithelial 11 Cells Urine Transitional Epithelial 1 Cells Urine Bacteria RARE Urine Mucus FEW Urine Yeast (Budding) OCC Microscopic Urinalysis Comment CULTURE INDICATED Date/Time Procedure Status Source Growth 01/08/17 04:50 Urine Culture Received Urine Random Urine Pending Result Diagram: 01/08/1721901/08/17219 Imaging Last Impressions Abdomen X-Ray 01/08/17 0153 Signed Impressions: Service Date/Time: Sunday, January 08, 2017 02:34 - CONCLUSION: 1. No evidence of ileus or obstruction Edson Mahan MD Assessment and Plan Problem List: (1) Chronic abdominal pain (2) UTI (urinary tract infection) (3) Chronic narcotic dependence (4) Hx of hiatal hernia (5) hx right nephrectomy (6) Hx of renal cell cancer (7) History of fundoplication (8) GERD (gastroesophageal reflux disease) (9) Gastroparesis Assessment and Plan Admit to Dr. Leblanc 56-year-old female with history of chronic abdominal pain and multiple admissions and ER visits. Discharged on 01/06, presents again with chronic abdominal pain, intractable nausea, and vomiting. Emesis consisint of bile. Found with UTI, abd xray without acute findings. -wants to eat, will put on regular diet --Continue with normal saline at 100 hour -Valium as needed for nausea, allergic to all other antiemetics. -continue with Rocephin, follow UC Acute on chronic abdominal pain, chronic narcotic use Drug-seeking behavior -patient again requesting PO Dilaudid, concerned she will go through withdrawals. States her narcotics prescribed by PCP. Has been referred to pain management. -Dilaudid 4 mg po x 1 now -Has a Fentanyl patch on, this is to continue History of gastrectomy, hiatal hernia, gastroparesis Recommend that she continue to follow with GI as outpatient Lovenox for DVT prophylaxis Plan of care has been discussed with the patient, attending and registered nurse. Further management of the patient will be dependent on the hospital course We will re-evaluate this afternoon, if she is tolerating diet and urine culture back, pt. is to be discharged This patient was seen by myself and Dr. Leblanc, this H&P is written on his behalf Problem Qualifiers (1) UTI (urinary tract infection): Qualified Code: N30.00 - Acute cystitis without hematuria (2) GERD (gastroesophageal reflux disease): Qualified Code: K21.9 - Gastroesophageal reflux disease, esophagitis presence not specified Leatha Levine Jan 08, 2017 07:53
--- NOTE | 2017-01-08 08:15 | HHI.DCPOC ---
Discharge Care Plan Diagnosis: (1) Abdominal pain Your Health Problems Are: Appetite Changes Goals to Promote Your Health * To prevent worsening of your condition and complications * To maintain your health at the optimal level Directions to Meet Your Goals Take your medications as prescribed Follow your dietary instruction Follow activity as directed Keep your appointments as scheduled Take your immunizations and boosters as scheduled If your symptoms worsen call your PCP, if no PCP go to Urgent Care Center or Emergency Room Smoking is Dangerous to Your Health. Avoid second hand smoke Call the 24-hour hour crisis hotline for domestic abuse at Leatha LevineP Jan 08, 2017 08:15
[2017-01-08] MEDS ORDERED: HYDROmorphone HCL 4 MG TAB PO ONE (09:00)
[2017-01-08] MEDS: SERTRALINE HCL 50 MG TAB PO SCH (09:52)
[2017-01-08] MEDS: busPIRone HCL 10 MG TAB PO SCH ×3 (09:53→18:48)
[2017-01-08] MEDS: DIAZEPAM 10 MG TAB PO SCH ×3 (09:54→18:48)
[2017-01-08] MEDS ORDERED: PANTOPRAZOLE SOD 40 MG DELAYED RELEASE TAB PO ONE (13:30)
[2017-01-08] MEDS ORDERED: ZOLPIDEM TARTRATE 10 MG TAB PO SCH (21:00)
[2017-01-09] MEDS ORDERED: ACETAMIN 325 MG/BUTALBITAL 50 MG/CAFFEINE 40 MG TAB PO SCH (01:00)
[2017-01-09 03:46] VITALS: BP 129/75; PULSE 68; RESP 18; TEMP 98.2; O2SAT 96
[2017-01-09] MEDS: ENOXAPARIN SODIUM 40 MG/0.4 ML SYRINGE SQ SCH (04:00)
[2017-01-09] MEDS: diphenhydrAMINE HCL 50 MG/ML VIAL IV PUSH PRN ×2 (05:38→10:22)
[2017-01-09] MEDS ORDERED: cefTRIAXone INJ 1,000 MG in SODIUM CHLORIDE 0.9% INJ 100 ML IV SCH (06:00)
[2017-01-09] MEDS ORDERED: SUMAtriptan SUCCINATE 50 MG TAB PO ONE (06:30)
[2017-01-09 07:49] VITALS: BP 142/81; PULSE 58; RESP 16; TEMP 98.3; O2SAT 98
--- NOTE | 2017-01-09 08:51 | HHI.PR ---
Subjective Remarks Complaining of migraine Nauseous, no vomiting Was able to tolerate regular diet yesterday Indicated she had diarrhea last night, 5 episodes, none observed by staff. No fever No chest pain Patient asking for Dilaudid Wants to know if she can be discharged later today Objective Objective Results - Vital Signs Date Time Temp Pulse Resp B/P Pulse Ox O2 Delivery O2 Flow Rate FiO2 01/09/17 07:49 98.3 58 16 142/81 98 01/09/17 03:46 98.2 68 18 129/75 96 01/08/17 19:26 98.4 91 18 116/67 96 01/08/17 16:00 98.9 70 16 108/67 96 01/08/17 12:50 98.2 71 18 110/58 96 Result Diagram: 01/08/1721901/08/17 022 Imaging Last Impressions Abdomen X-Ray 01/08/17 0153 Signed Impressions: Service Date/Time: Sunday, January 08, 2017 02:34 - CONCLUSION: 1. 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 SKIN: No rashes, ecchymoses or lesions. Cool and dry. HEAD: Atraumatic. Normocephalic. No temporal or scalp tenderness. EYES: Pupils equal round and reactive. Extraocular motions intact. No scleral icterus. No injection or drainage. ENT: Nose without bleeding, purulent drainage or septal hematoma. Throat without erythema, tonsillar hypertrophy or exudate. Uvula midline. Airway patent. NECK: Trachea midline. No JVD or lymphadenopathy. Supple, nontender, no meningeal signs. CARDIOVASCULAR: Regular rate and rhythm without murmurs, gallops, or rubs. RESPIRATORY: Clear to auscultation. Breath sounds equal bilaterally. No wheezes , rales, or rhonchi. GASTROINTESTINAL: Abdomen soft,diffusely tender, nondistended. Normoactive bowel sounds 4. No hepato-splenomegaly, or palpable masses. No guarding. MUSCULOSKELETAL: Extremities without clubbing, cyanosis, or edema. No joint tenderness, effusion, or edema noted. No calf tenderness. Negative Homans sign bilaterally. NEUROLOGICAL: Awake, alert oriented 3. No focal deficits. Urinary Catheter: No Vascular Central Line Catheter: No A/P Diagnosis: (1) Chronic abdominal pain (2) UTI (urinary tract infection) (3) Chronic narcotic dependence (4) Hx of hiatal hernia (5) hx right nephrectomy (6) Hx of renal cell cancer (7) History of fundoplication (8) GERD (gastroesophageal reflux disease) (9) Gastroparesis Assessment and Plan 56-year-old female with history of chronic abdominal pain and multiple admissions and ER visits. Discharged on 01/06, presents again with chronic abdominal pain, intractable nausea, and vomiting. Emesis consisint of bile. Found with UTI, abd xray without acute findings. -wants to eat, will put on regular diet -Discontinue IV fluids -Valium as needed for nausea, allergic to all other antiemetics. -continue with Rocephin, follow UC-pending Acute on chronic abdominal pain, chronic narcotic use Drug-seeking behavior -patient again requesting PO Dilaudid, concerned she will go through withdrawals. States her narcotics prescribed by PCP. Has been referred to pain management. -Has a Fentanyl patch on, this is to continue -Patient asking for Dilaudid again, none will be given Migraine Imitrex 100 mg by mouth 1 has been ordered -We'll receive Fioricet History of gastrectomy, hiatal hernia, gastroparesis Recommend that she continue to follow with GI as outpatient-attending spoke to her PCP yesterday, her finishing pan operator is Dr. Keen. Patient is due to have a CTA of abdomen. Lovenox for DVT prophylaxis Follow up on urine cultures, once sensitivity is noted patient will likely be discharged on oral antibiotics Discussed with RN Discussed with patient Discussed with Dr. Leblanc This patient was seen by myself and Dr. Leblanc, this note is written on his behalf Problem Qualifiers (1) UTI (urinary tract infection): Qualified Code: N30.00 - Acute cystitis without hematuria (2) GERD (gastroesophageal reflux disease): Qualified Code: K21.9 - Gastroesophageal reflux disease, esophagitis presence not specified Leatha LevineP Jan 09, 2017 08:51
[2017-01-09] MEDS ORDERED: PANTOPRAZOLE SOD 40 MG DELAYED RELEASE TAB PO SCH (09:00)
[2017-01-09] MEDS: DIAZEPAM 10 MG TAB PO SCH (10:18)
[2017-01-09] MEDS: SODIUM CHLORIDE 0.9% FLUSH 10 ML FLUSH IV FLUSH SCH (10:18)
[2017-01-09] MEDS: busPIRone HCL 10 MG TAB PO SCH (10:18)
[2017-01-09] MEDS: SERTRALINE HCL 50 MG TAB PO SCH (10:18)
[2017-01-09 11:02] VITALS: BP 156/81; PULSE 71; RESP 18; TEMP 98.1; O2SAT 98
[2017-01-09] MEDS ORDERED: CEFU1TAB20 PO (13:27)
== END 2017-01-09 14:57 | disposition home or self-care (01) ==
LOC: NEPE 23:57 → NEDA 01-08 03:39 → NEPFCDU 01-08 05:54
PROVIDERS: ADMIT Specialist; ATTEND Specialist
DX: R10.9 Unspecified abdominal pain (principal); G89.29 Other chronic pain; R11.2 Nausea with vomiting, unspecified; G43.909 Migraine, unspecified, not intractable, without status migrainosus; I25.2 Old myocardial infarction; F11.20 Opioid dependence, uncomplicated; N39.0 Urinary tract infection, site not specified; K31.84 Gastroparesis; K21.9 Gastro-esophageal reflux disease without esophagitis; I25.10 Atherosclerotic heart disease of native coronary artery without angina pectoris; Z86.73 Personal history of transient ischemic attack (TIA), and cerebral infarction without residual deficits; Z76.5 Malingerer [conscious simulation]; Z85.528 Personal history of other malignant neoplasm of kidney; B96.89 Other specified bacterial agents as the cause of diseases classified elsewhere
CPT/HCPCS: 74000; 80053; 81001; 83690; 85025; 87086; 96365; 96366; 96372; 96375; 96376; 99285; G0378; J0696; J1170; J1200; J1650; J7030

== ENCOUNTER 2017-01-09 20:37 | Emergency (ER) | payer BC ==
[~2017-01-09] VITALS: Ht 160 cm; Wt 37.0 kg
[~2017-01-09 20:37] MED LIST changes: +CEFU1TAB20 PO; +FENT25DI T-DERMAL; +ZOLO50TA PO
[2017-01-09 20:41] VITALS: BP 194/102; PULSE 94; RESP 16; TEMP 99.1; O2SAT 96
[2017-01-09] MEDS ORDERED: SODIUM CHLOR 0.9% 1000 ML INJ 1,000 ML IV SCH (22:11)
[2017-01-09] MEDS ORDERED: ALUMINUM/MAGNESIUM/SIMETH 30 ML CUP PO ONE (22:15)
[2017-01-09] MEDS ORDERED: SODIUM CHLORIDE 0.9% FLUSH 10 ML FLUSH IV FLUSH PRN (22:15)
[2017-01-09] MEDS ORDERED: LIDOCAINE VISCOUS 2% SOLN 15 ML UDC PO ONE (22:15)
--- NOTE | 2017-01-09 22:55 | PD ---
HPI Chief Complaint: GI Complaint Time Seen by Provider: 21:59 Travel History International Travel<30 days: No Contact w/Intl Traveler<30days: No Traveled to known affect area: No History of Present Illness HPI 66-year-old female returns to the ER complaining of abdominal pain and vomiting. She is admitted to the hospital yesterday and was discharged today. After returning home her nausea vomiting abdominal pain returned leading to her ER evaluation today. Evidently she uses Valium and Dilaudid for her nausea vomiting and abdominal pain which at home was not helpful. Here in the ER her complaints include her request for antiemetics and pain medication although due to reported allergies only benzodiazepines, Dilaudid and fentanyl can be used to treat her symptoms. Location gastrointestinal. Timing constant. PFSH Past Medical History Hx Anticoagulant Therapy: No Asthma: No Blood Disorders: No Anxiety: Yes Depression: No Heart Rhythm Problems: No Cancer: Yes (KIDNEY) Cardiovascular Problems: Yes (STEMI 2004) High Cholesterol: No Chemotherapy: No Chest Pain: No Congestive Heart Failure: No COPD: No Cerebrovascular Accident: Yes Diabetes: No Diminished Hearing: No Endocrine: No Gastrointestinal Disorders: Yes GERD: No Genitourinary: Yes (kidney cancer, removed R kidney 2004) Headaches: Yes Hiatal Hernia: Yes Hypertension: No Immune Disorder: No Implanted Vascular Access Dvce: No Kidney Stones: No Musculoskeletal: No Neurologic: Yes (seizures ) Psychiatric: Yes Reproductive: No Respiratory: No Immunizations Current: Yes Migraines: Yes Myocardial Infarction: Yes (2005) Pneumonia: Yes Radiation Therapy: No Renal Failure: No Seizures: Yes Sleep Apnea: No Thyroid Disease: No Ulcer: No Tetanus Vaccination: < 5 Years Influenza Vaccination: Yes ?: Not Menopausal: Yes : 1 Para: 1 Miscarriage: 0 : 0 Ectopic : No Ovarian Cysts: No Tubal Ligation: Yes Past Surgical History Abdominal Surgery: Yes (total gastrectomy w/pouch 2002, hernia repair) Appendectomy: Yes Cardiac Surgery: Yes Cholecystectomy: Yes Genitourinary Surgery: Yes (RIGHT NEPHRECTOMY) Thoracic Surgery: No Tonsillectomy: Yes Other Surgery: Yes Social History Alcohol Use: No Tobacco Use: No Substance Use: No Allergies-Medications (Allergen,Severity, Reaction): Coded Allergies: Compazine (Verified Allergy, Severe, Shortness of Breath, 01/09/17) Gadolinium Derivatives (Verified Allergy, Severe, Anaphylaxis, 01/09/17) Lobster (Verified Allergy, Severe, Anaphylaxis, 01/09/17) Morphine (Verified Allergy, Severe, Hives, 01/09/17) Penicillin (Verified Allergy, Severe, Rash, 01/09/17) Phenergan (Verified Allergy, Severe, Shortness of Breath, 01/09/17) Reglan (Verified Allergy, Severe, Shortness of Breath, 01/09/17) Sulfa (Verified Allergy, Severe, Rash, 01/09/17) Tigan (Verified Allergy, Severe, Shortness of Breath, 01/09/17) Toradol (Verified Allergy, Severe, Shortness of Breath, 01/09/17) Zofran (Verified Allergy, Severe, Shortness of Breath, 01/09/17) Reported Meds & Prescriptions Reported Meds & Active Scripts Active Cefuroxime (Cefuroxime Axetil) 500 Mg Tab 500 Mg PO BID Reported Fentanyl Patch 72 HR (Fentanyl) 25 Mcg/Hr Patch 25 Mcg T-DERMAL Q72H Zoloft (Sertraline HCl) 50 Mg Tab 50 Mg PO DAILY Dulcolax Stool Softener (Docusate Sodium) 100 Mg Cap 100 Mg PO HS Ambien (Zolpidem Tartrate) 10 Mg Tab 10 Mg PO HS PRN Dilaudid (Hydromorphone HCl) 4 Mg Tab 6 Mg PO 5 TIMES A DAY PRN Valium (Diazepam) 10 Mg Tab 10 Mg PO TID Buspirone (Buspirone HCl) 7.5 Mg Tab 30 Mg PO TID Cyanocobalamin Inj (Cyanocobalamin) 1,000 Mcg/Ml Inj 1,000 Mcg IM Q30D Review of Systems Except as stated in HPI: all other systems reviewed are Neg General / Constitutional: No: Fever Physical Exam Narrative GENERAL: 56-year-old female then mild to moderate distress SKIN: Warm and dry. HEAD: Atraumatic. Normocephalic. EYES: Pupils equal and round. No scleral icterus. No injection or drainage. ENT: No nasal bleeding or discharge. Mucous membranes pink and moist. NECK: Trachea midline. No JVD. CARDIOVASCULAR: Regular rate and rhythm. RESPIRATORY: No accessory muscle use. Clear to auscultation. Breath sounds equal bilaterally. GASTROINTESTINAL: Soft. Diffuse nonspecific tenderness. MUSCULOSKELETAL: Extremities without clubbing, cyanosis, or edema. No obvious deformities. NEUROLOGICAL: Awake and alert. No obvious cranial nerve deficits. Motor grossly within normal limits. Five out of 5 muscle strength in the arms and legs. Normal speech. PSYCHIATRIC: Appropriate mood and affect; insight and judgment normal. Data Data Last Documented VS Vital Signs Date Time Temp Pulse Resp B/P Pulse Ox O2 Delivery O2 Flow Rate FiO2 01/09/17 20:41 99.1 94 16 194/102 96 Room Air Vital signs reviewed Orders Complete Blood Count With Diff (01/09/17 22:11) Comprehensive Metabolic Panel (01/09/17 22:11) Lipase (01/09/17 22:11) Iv Access Insert/Monitor (01/09/17 22:11) Ecg Monitoring (01/09/17 22:11) Oximetry (01/09/17 22:11) Sodium Chlor 0.9% 1000 Ml Inj (Ns 1000 M (01/09/17 22:11) Sodium Chloride 0.9% Flush (Ns Flush) (01/09/17 22:15) Al-Mag Hy-Si 40-40-4 Mg/Ml Liq (Mag-Al P (01/09/17 22:15) Lidocaine 2% Viscous (Xylocaine 2% Visco (01/09/17 22:15) Diphenhydramine Inj (Benadryl Inj) (01/09/17 23:00) Al-Mag Hy-Si 40-40-4 Mg/Ml Liq (Mag-Al P (01/10/17 00:00) Lidocaine 2% Viscous (Xylocaine 2% Visco (01/10/17 00:00) Diphenhydramine Inj (Benadryl Inj) (01/10/17 00:00) Labs Laboratory Tests Test 01/09/17 22:53 White Blood Count 4.9 TH/MM3 Red Blood Count 4.36 MIL/MM3 Hemoglobin 12.0 GM/DL Hematocrit 37.4 % Mean Corpuscular Volume 85.7 FL Mean Corpuscular Hemoglobin 27.6 PG Mean Corpuscular Hemoglobin 32.2 % Concent Red Cell Distribution Width 16.8 % Platelet Count 192 TH/MM3 Mean Platelet Volume 9.5 FL Neutrophils (%) (Auto) 76.6 % Lymphocytes (%) (Auto) 17.5 % Monocytes (%) (Auto) 5.3 % Eosinophils (%) (Auto) 0.5 % Basophils (%) (Auto) 0.1 % Neutrophils # (Auto) 3.8 TH/MM3 Lymphocytes # (Auto) 0.9 TH/MM3 Monocytes # (Auto) 0.3 TH/MM3 Eosinophils # (Auto) 0.0 TH/MM3 Basophils # (Auto) 0.0 TH/MM3 CBC Comment DIFF FINAL Differential Comment Sodium Level 137 MEQ/L Potassium Level 3.8 MEQ/L Chloride Level 101 MEQ/L Carbon Dioxide Level 30.4 MEQ/L Anion Gap 6 MEQ/L Blood Urea Nitrogen 13 MG/DL Creatinine 0.92 MG/DL Estimat Glomerular Filtration 63 ML/MIN Rate Random Glucose 111 MG/DL Calcium Level 9.1 MG/DL Total Bilirubin 0.2 MG/DL Aspartate Amino Transf 31 U/L (AST/SGOT) Alanine Aminotransferase 46 U/L (ALT/SGPT) Alkaline Phosphatase 107 U/L Total Protein 7.9 GM/DL Albumin 4.2 GM/DL Lipase 213 U/L MDM Medical Decision Making Medical Screen Exam Complete: Yes Emergency Medical Condition: Yes Medical Record Reviewed: Yes Differential Diagnosis Gastritis, pancreatitis, appendicitis, acute cholecystitis, ascending cholangitis, AAA, perforated viscous, mesenteric ischemia, hepatitis, cystitis, hydronephrosis/hydroureter/nephroureter calculus, mesenteric adenitis, biliary colic Narrative Course CBC & BMP Diagram 01/09/17 22:53 LFTs normal Lipase normal The patient is resting comfortably and feels better, is alert and in no distress. The patients results and examination findings were discussed. The repeat examination is unremarkable and benign. The history, exam, diagnostic testing, and current condition do not suggest any significant pathology to warrant further testing, continued ED treatment, admission, or surgical evaluation at this point. The vital signs have been stable. The patient does not have uncontrollable pain, intractable vomiting, or other significant symptoms. The patient's condition is stable and appropriate for discharge. The patient will pursue further outpatient evaluation with a primary care physician or other designated or consulting physician as indicated in the discharge instructions. The patient expressed understanding and was agreeable with this plan. Diagnosis Primary Impression: Abdominal pain Qualified Code: R10.9 - Abdominal pain, unspecified abdominal location Additional Impression: Nausea & vomiting Qualified Code: R11.2 - Nausea and vomiting, intractability of vomiting not specified, unspecified vomiting type Referrals: Primary Care Physician 2 days Additional Instructions: You have a choice when it comes to health care, and we are glad that you chose [facility]. Hopefully, we have met your expectations on today's visit. You are welcome to return to [facility] at any time, as we are committed to meeting the health care needs of our community. Med/Other Pt SpecificInfo: No Meds Exist/No RX given Disposition: 01 DISCHARGE HOME Condition: Noble Moss MD Jan 09, 2017 22:55
[2017-01-09] MEDS ORDERED: diphenhydrAMINE HCL 50 MG/ML VIAL IV PUSH ONE (23:00)
[2017-01-09 23:11] LABS: AUTOMATED NEUTROPHIL # 3.8 TH/MM3 (1.8-7.7); BASOPHIL % 0.1 % (0.0-2.0); EOSINOPHIL % 0.5 % (0.0-4.0); HEMATOCRIT 37.4 % (35.0-46.0); HEMO FLAGS DIFF FINAL; LYMPH % 17.5 % (9.0-44.0); LYMPHOCYTE # 0.9 TH/MM3 (1.0-4.8); MEAN CELL VOLUME 85.7 FL (80.0-100.0); MEAN CORPUSCULAR HEMOGLOBIN 27.6 PG (27.0-34.0); MEAN CORPUSCULAR HGB CONC 32.2 % (32.0-36.0); MONO % 5.3 % (0.0-8.0); NEUT % 76.6 % (16.0-70.0); PLATELET COUNT 192 TH/MM3 (150-450); RED BLOOD COUNT 4.36 MIL/MM3 (4.00-5.30); RED CELL DISTRIBUTION WIDTH 16.8 % (11.6-17.2); WHITE BLOOD COUNT 4.9 TH/MM3 (4.0-11.0)
[2017-01-09 23:34] LABS: ALT (GPT) 46 U/L (10-53)
[2017-01-09 23:36] LABS: ALKALINE PHOSPHATASE 107 U/L (45-117); TOTAL BILIRUBIN ADULT 0.2 MG/DL (0.2-1.0)
[2017-01-09 23:43] LABS: ANION GAP 6 MEQ/L (5-15); AST (GOT) 31 U/L (15-37); BICARBONATE 30.4 MEQ/L (21.0-32.0); BLOOD UREA NITROGEN 13 MG/DL (7-18); CHLORIDE 101 MEQ/L (98-107); GLOMERULAR FILTRATION RATE 63 ML/MIN (>89); POTASSIUM 3.8 MEQ/L (3.5-5.1); SODIUM (NA) 137 MEQ/L (136-145)
[2017-01-10] MEDS ORDERED: LIDOCAINE VISCOUS 2% SOLN 15 ML UDC PO ONE
[2017-01-10] MEDS ORDERED: ALUMINUM/MAGNESIUM/SIMETH 30 ML CUP PO ONE
[2017-01-10] MEDS ORDERED: diphenhydrAMINE HCL 50 MG/ML VIAL IV PUSH ONE
== END 2017-01-10 00:38 | disposition home or self-care (01) ==
LOC: NEPC 20:37
DX: R10.9 Unspecified abdominal pain (principal); R11.2 Nausea with vomiting, unspecified; I25.2 Old myocardial infarction; Z86.59 Personal history of other mental and behavioral disorders; Z85.528 Personal history of other malignant neoplasm of kidney; Z87.19 Personal history of other diseases of the digestive system; Z87.448 Personal history of other diseases of urinary system; Z86.69 Personal history of other diseases of the nervous system and sense organs
CPT/HCPCS: 80053; 83690; 85025; 96361; 96374; 96376; J1200; J7030

== ENCOUNTER 2017-01-16 08:12 | Emergency (ER) | payer BC ==
[~2017-01-16] VITALS: Ht 157.5 cm; Wt 36.5 kg
[2017-01-16 08:15] VITALS: BP 169/163; PULSE 65; RESP 24; TEMP 98.5
[2017-01-16] MEDS ORDERED: diphenhydrAMINE HCL 50 MG/ML VIAL IM ONE (11:00)
[2017-01-16] MEDS ORDERED: ALUMINUM/MAGNESIUM/SIMETH 30 ML CUP PO ONE (11:00)
[2017-01-16] MEDS ORDERED: LIDOCAINE VISCOUS 2% SOLN 15 ML UDC PO ONE (11:00)
--- NOTE | 2017-01-16 11:04 | PD ---
HPI Chief Complaint: Abdominal Pain Time Seen by Provider: 08:51 Travel History International Travel<30 days: No Contact w/Intl Traveler<30days: No Traveled to known affect area: No History of Present Illness HPI The patient was seen and examined in the presence of the nurse. This patient complains of abdominal pain. She has chronic daily abdominal pain for years. She is a very frequent visitor. This is her 35th visit in the last one year's time. I saw her last month for the same thing. Symptom severity is reportedly moderate. No alleviating factors. PFSH Past Medical History Hx Anticoagulant Therapy: No Asthma: No Blood Disorders: No Anxiety: Yes Depression: No Heart Rhythm Problems: No Cancer: Yes (KIDNEY) Cardiovascular Problems: Yes ([place] 2004) High Cholesterol: No Chemotherapy: No Chest Pain: No Congestive Heart Failure: No COPD: No Cerebrovascular Accident: Yes (2004) Diabetes: No Diminished Hearing: No Endocrine: No Gastrointestinal Disorders: Yes GERD: No Genitourinary: Yes (kidney cancer, removed R kidney 2004) Headaches: Yes Hiatal Hernia: Yes Hypertension: No Immune Disorder: No Implanted Vascular Access Dvce: No Kidney Stones: No Musculoskeletal: No Neurologic: Yes (seizures ) Psychiatric: Yes Reproductive: No Respiratory: No Immunizations Current: Yes Migraines: Yes Myocardial Infarction: Yes (2004) Pneumonia: Yes Radiation Therapy: No Renal Failure: No Seizures: Yes Sleep Apnea: No Thyroid Disease: No Ulcer: No ?: Not Menopausal: Yes : 1 Para: 1 Miscarriage: 0 : 0 Ectopic : No Ovarian Cysts: No Tubal Ligation: Yes Past Surgical History Abdominal Surgery: Yes (total gastrectomy w/pouch 2002, hernia repair) Appendectomy: Yes Cardiac Surgery: Yes (REPAIRED HOLE IN HEART) Cholecystectomy: Yes Genitourinary Surgery: Yes (RIGHT NEPHRECTOMY) Hysterectomy: No Thoracic Surgery: No Tonsillectomy: Yes Other Surgery: Yes Social History Alcohol Use: No Tobacco Use: No Substance Use: No Allergies-Medications (Allergen,Severity, Reaction): Coded Allergies: Compazine (Verified Allergy, Severe, Shortness of Breath, 01/09/17) Gadolinium Derivatives (Verified Allergy, Severe, Anaphylaxis, 01/09/17) Lobster (Verified Allergy, Severe, Anaphylaxis, 01/09/17) Morphine (Verified Allergy, Severe, Hives, 01/09/17) Penicillin (Verified Allergy, Severe, Rash, 01/09/17) Phenergan (Verified Allergy, Severe, Shortness of Breath, 01/09/17) Reglan (Verified Allergy, Severe, Shortness of Breath, 01/09/17) Sulfa (Verified Allergy, Severe, Rash, 01/09/17) Tigan (Verified Allergy, Severe, Shortness of Breath, 01/09/17) Toradol (Verified Allergy, Severe, Shortness of Breath, 01/09/17) Zofran (Verified Allergy, Severe, Shortness of Breath, 01/09/17) Reported Meds & Prescriptions Reported Meds & Active Scripts Active Reported Fentanyl Patch 72 HR (Fentanyl) 25 Mcg/Hr Patch 25 Mcg T-DERMAL Q72H Zoloft (Sertraline HCl) 50 Mg Tab 50 Mg PO DAILY Dulcolax Stool Softener (Docusate Sodium) 100 Mg Cap 100 Mg PO HS Ambien (Zolpidem Tartrate) 10 Mg Tab 10 Mg PO HS PRN Dilaudid (Hydromorphone HCl) 4 Mg Tab 6 Mg PO 5 TIMES A DAY PRN Valium (Diazepam) 10 Mg Tab 10 Mg PO TID Buspirone (Buspirone HCl) 7.5 Mg Tab 30 Mg PO TID Cyanocobalamin Inj (Cyanocobalamin) 1,000 Mcg/Ml Inj 1,000 Mcg IM Q30D Review of Systems General / Constitutional: No: Fever HENT: No: Headaches Respiratory: No: Cough Gastrointestinal: Positive: Nausea, Abdominal Pain Physical Exam Narrative GASTROINTESTINAL: Abdomen soft, non-tender, nondistended. Positive bowel sounds. No hepato-splenomegaly, or palpable masses. No guarding. SKIN: Focused skin assessment reveals no rash or ulcers. Skin is warm and dry. Palpation shows no induration or nodules. Normal turgor CARDIOVASCULAR: Regular rate and rhythm without murmur. Extremities showed no edema or varicosities. Moist mucous membranes Data Data Last Documented VS Vital Signs Date Time Temp Pulse Resp B/P Pulse Ox O2 Delivery O2 Flow Rate FiO2 01/16/17 08:15 98.5 65 24 169/163 Room Air Orders Lidocaine 2% Viscous (Xylocaine 2% Visco (01/16/17 11:00) Al-Mag Hy-Si 40-40-4 Mg/Ml Liq (Mag-Al P (01/16/17 11:00) Diphenhydramine Inj (Benadryl Inj) (01/16/17 11:00) MDM Medical Decision Making Medical Screen Exam Complete: Yes Emergency Medical Condition: Yes Medical Record Reviewed: Yes Differential Diagnosis Chronic abdominal pain, narcotic ileus, narcotic seeking behavior Narrative Course I have reviewed the patient's electronic medical record. I saw this patient last month for the same thing, she's been seen 3 or 4 times since then for the same thing Patient is not dehydrated Has a heart rate of 60 and moist. His membranes are normal turgor Soft benign nontender abdomen She's had multiple negative workups here. I don't feel emergent studies are indicated. sHe requested GI cocktail which I provided as well as an intramuscular dose of Benadryl. Diagnosis Primary Impression: Abdominal pain Qualified Code: R10.84 - Generalized abdominal pain Additional Impression: Chronic narcotic dependence Additional Instructions: The patient was advised to follow up with their physician and return if they worsen. Med/Other Pt SpecificInfo: Other Disposition: 01 DISCHARGE HOME Condition: Stable Emir Sage MD Jan 16, 2017 11:04
[2017-01-16] MEDS ORDERED: POTA10CA PO (18:53)
== END 2017-01-16 11:56 | disposition home or self-care (01) ==
LOC: NEPE 08:12
DX: R10.84 Generalized abdominal pain (principal); F11.20 Opioid dependence, uncomplicated; T40.2X5A Adverse effect of other opioids, initial encounter; I25.2 Old myocardial infarction; Z85.528 Personal history of other malignant neoplasm of kidney; Z86.73 Personal history of transient ischemic attack (TIA), and cerebral infarction without residual deficits
CPT/HCPCS: 74020; 80053; 83605; 83690; 85027; 85610; 85730; 86077; 86850; 86870; 86900; 86901; 86902; 87040; 96372; 99284; J0500; J1200

== ENCOUNTER 2017-01-16 16:30 | Emergency (ER) | payer BC ==
[2017-01-16 16:33] VITALS: BP 191/114; PULSE 68; RESP 20; TEMP 100.3; O2SAT 99
[2017-01-16 16:52] VITALS: BP 213/91; PULSE 65; RESP 23; TEMP 99; O2SAT 100
[2017-01-16 17:25] VITALS: BP 162/92; PULSE 68; RESP 20; O2SAT 100
[2017-01-16] MEDS ORDERED: diphenhydrAMINE HCL 50 MG/ML VIAL IM ONE (17:30)
--- NOTE | 2017-01-16 17:40 | PD ---
HPI Chief Complaint: Abdominal Pain Time Seen by Provider: 16:56 Travel History International Travel<30 days: No Contact w/Intl Traveler<30days: No Traveled to known affect area: No History of Present Illness HPI 56 years old female complains of abdominal pain with nausea vomiting. Patient has been seen to the emergency room multiple times in the past with same problem. Workup has been negative. Patient has been seen by GI specialist without clear etiology all abdominal pain with nausea vomiting. Patient was seen in emergency room this morning and discharged home. Patient was given GI cocktail solution and Benadryl prior to discharge. Patient states that she had persistent pain he came back this afternoon. Patient denies any headache. Patient denies any sore throat coughing congestion. Patient denies any chest pain or shortness of breath. Patient states the pain cramping pain and sharp pain diffuse over the abdomen. Patient denies any pain radiation. Patient denies any dysuria or frequency. Patient denies any vaginal discharge or bleeding. Patient denies any fever chills. PFSH Past Medical History Hx Anticoagulant Therapy: No Asthma: No Blood Disorders: No Anxiety: Yes Depression: No Heart Rhythm Problems: No Cancer: Yes (KIDNEY) Cardiovascular Problems: Yes ([place] 2004) High Cholesterol: No Chemotherapy: No Chest Pain: No Congestive Heart Failure: No COPD: No Cerebrovascular Accident: Yes (2004) Diabetes: No Diminished Hearing: No Endocrine: No Gastrointestinal Disorders: Yes GERD: No Genitourinary: Yes (kidney cancer, removed R kidney 2004) Headaches: Yes Hiatal Hernia: Yes Hypertension: No Immune Disorder: No Implanted Vascular Access Dvce: No Kidney Stones: No Musculoskeletal: No Neurologic: Yes (seizures ) Psychiatric: Yes Reproductive: No Respiratory: No Immunizations Current: Yes Migraines: Yes Myocardial Infarction: Yes (2004) Pneumonia: Yes Radiation Therapy: No Renal Failure: No Seizures: Yes Sleep Apnea: No Thyroid Disease: No Ulcer: No Menopausal: Yes : 1 Para: 1 Miscarriage: 0 : 0 Ectopic : No Ovarian Cysts: No Tubal Ligation: Yes Past Surgical History Abdominal Surgery: Yes (total gastrectomy w/pouch 2002, hernia repair) Appendectomy: Yes Cardiac Surgery: Yes (REPAIRED HOLE IN HEART) Cholecystectomy: Yes Genitourinary Surgery: Yes (RIGHT NEPHRECTOMY) Hysterectomy: No Thoracic Surgery: No Tonsillectomy: Yes Other Surgery: Yes Social History Alcohol Use: No Tobacco Use: No Substance Use: No Allergies-Medications (Allergen,Severity, Reaction): Coded Allergies: Compazine (Verified Allergy, Severe, Shortness of Breath, 01/16/17) Gadolinium Derivatives (Verified Allergy, Severe, Anaphylaxis, 01/16/17) Lobster (Verified Allergy, Severe, Anaphylaxis, 01/16/17) Morphine (Verified Allergy, Severe, Hives, 01/16/17) Penicillin (Verified Allergy, Severe, Rash, 01/16/17) Phenergan (Verified Allergy, Severe, Shortness of Breath, 01/16/17) Reglan (Verified Allergy, Severe, Shortness of Breath, 01/16/17) Sulfa (Verified Allergy, Severe, Rash, 01/16/17) Tigan (Verified Allergy, Severe, Shortness of Breath, 01/16/17) Toradol (Verified Allergy, Severe, Shortness of Breath, 01/16/17) Zofran (Verified Allergy, Severe, Shortness of Breath, 01/16/17) Reported Meds & Prescriptions Reported Meds & Active Scripts Active Reported Fentanyl Patch 72 HR (Fentanyl) 25 Mcg/Hr Patch 25 Mcg T-DERMAL Q72H Zoloft (Sertraline HCl) 50 Mg Tab 50 Mg PO DAILY Dulcolax Stool Softener (Docusate Sodium) 100 Mg Cap 100 Mg PO HS Ambien (Zolpidem Tartrate) 10 Mg Tab 10 Mg PO HS PRN Dilaudid (Hydromorphone HCl) 4 Mg Tab 6 Mg PO 5 TIMES A DAY PRN Valium (Diazepam) 10 Mg Tab 10 Mg PO TID Buspirone (Buspirone HCl) 7.5 Mg Tab 30 Mg PO TID Cyanocobalamin Inj (Cyanocobalamin) 1,000 Mcg/Ml Inj 1,000 Mcg IM Q30D Review of Systems General / Constitutional: No: Fever Eyes: No: Visual changes HENT: No: Headaches Cardiovascular: No: Chest Pain or Discomfort Respiratory: No: Shortness of Breath Gastrointestinal: Positive: Nausea, Vomiting, Abdominal Pain Genitourinary: No: Dysuria Musculoskeletal: No: Pain Skin: No Rash Neurologic: No: Weakness Psychiatric: No: Depression Endocrine: No: Polydipsia Hematologic/Lymphatic: No: Easy Bruising Physical Exam Narrative GENERAL: Well-nourished, well-developed patient. SKIN: Focused skin assessment warm/dry. HEAD: Normocephalic. EYES: No scleral icterus. No injection or drainage. NECK: Supple, trachea midline. No JVD or lymphadenopathy. CARDIOVASCULAR: Regular rate and rhythm without murmurs, gallops, or rubs. RESPIRATORY: Breath sounds equal bilaterally. No accessory muscle use. GASTROINTESTINAL: Abdomen soft, nondistended. Patient has mild diffuse tenderness over the abdomen. No rebound tenderness. No mass. MUSCULOSKELETAL: No cyanosis, or edema. BACK: Nontender without obvious deformity. No CVA tenderness. Neurologic exam normal. Data Data Last Documented VS Vital Signs Date Time Temp Pulse Resp B/P Pulse Ox O2 Delivery O2 Flow Rate FiO2 01/16/17 17:25 68 20 162/92 100 Room Air 01/16/17 16:52 99.0 Orders Cbc No Diff, Includes Plts (01/16/17 17:20) Lactic Acid (01/16/17 17:20) Blood Culture (01/16/17 17:20) Type And Screen (01/16/17 17:20) Coag Profile (01/16/17 17:20) Urinalysis - C+S If Indicated (01/16/17 17:24) Diphenhydramine Inj (Benadryl Inj) (01/16/17 17:30) Abdomen, Flat & Upright (01/16/17 17:27) Comprehensive Metabolic Panel (01/16/17 17:35) Lipase (01/16/17 17:35) Dicyclomine Inj (Bentyl Inj) (01/16/17 18:00) Labs Laboratory Tests Test 01/16/17 17:25 White Blood Count 5.2 TH/MM3 Red Blood Count 3.64 MIL/MM3 Hemoglobin 10.5 GM/DL Hematocrit 30.5 % Mean Corpuscular Volume 83.9 FL Mean Corpuscular Hemoglobin 28.8 PG Mean Corpuscular Hemoglobin 34.3 % Concent Red Cell Distribution Width 16.9 % Platelet Count 183 TH/MM3 Mean Platelet Volume 10.0 FL Prothrombin Time 10.8 SEC Prothromb Time International 1.0 RATIO Ratio Activated Partial 26.3 SEC Thromboplast Time Sodium Level 140 MEQ/L Potassium Level 3.2 MEQ/L Chloride Level 104 MEQ/L Carbon Dioxide Level 26.1 MEQ/L Anion Gap 10 MEQ/L Blood Urea Nitrogen 8 MG/DL Creatinine 0.64 MG/DL Estimat Glomerular Filtration 96 ML/MIN Rate Random Glucose 110 MG/DL Lactic Acid Level 1.1 mmol/L Calcium Level 9.2 MG/DL Total Bilirubin 0.3 MG/DL Aspartate Amino Transf 43 U/L (AST/SGOT) Alanine Aminotransferase 49 U/L (ALT/SGPT) Alkaline Phosphatase 86 U/L Total Protein 7.0 GM/DL Albumin 3.5 GM/DL Lipase 193 U/L MDM Medical Decision Making Medical Screen Exam Complete: Yes Emergency Medical Condition: Yes Interpretation(s) Last Impressions Abdomen X-Ray 01/16/17 [id number] Signed Impressions: Service Date/Time: Wednesday, January 16, 2017 17:43 - CONCLUSION: Nonspecific gas pattern with air-fluid levels identified in nondistended loops of small bowel. No evidence of pathologic distention or free air.. Filiberto Rausch MD 1848 PM. CBC within normal limit. Potassium 3.2. Lactic Acid 1.1. Differential Diagnosis Differential diagnosis including recurrent abdominal pain, electrolyte imbalance , dehydration, pancreatitis, gastritis, colitis, UTI, pyelonephritis. Narrative Course 56 years old female with recurrent abdominal pain with nausea vomiting. Patient has low-grade fever upon presentation. Diagnosis Primary Impression: Recurrent abdominal pain Additional Impression: Hypokalemia Patient Instructions: General Instructions Additional Instructions: Continue with medications as directed. Potassium as directed. Follow-up with personal physician and GI specialist. Return if worse. Med/Other Pt SpecificInfo: Prescription(s) given Scripts Potassium Chloride ER 10 Meq Cap10 Meq PO DAILY #7 CAP Ref 0 Prov:Edmar Georges MD 01/16/17 Disposition: 01 DISCHARGE HOME Condition: Stable Edmar Georges MD Jan 16, 2017 17:40
[2017-01-16 17:55] LABS: HEMATOCRIT 30.5 % (35.0-46.0); MEAN CELL VOLUME 83.9 FL (80.0-100.0); MEAN CORPUSCULAR HEMOGLOBIN 28.8 PG (27.0-34.0); MEAN CORPUSCULAR HGB CONC 34.3 % (32.0-36.0); PLATELET COUNT 183 TH/MM3 (150-450); RED BLOOD COUNT 3.64 MIL/MM3 (4.00-5.30); RED CELL DISTRIBUTION WIDTH 16.9 % (11.6-17.2); REVIEW FLAG FINAL; WHITE BLOOD COUNT 5.2 TH/MM3 (4.0-11.0)
--- NOTE | 2017-01-16 17:58 | RADRPT ---
EXAM DATE/TIME: 01/16/2017 17:43 [facility] COMPARISON: ABDOMEN FLAT & UPRIGHT, September 08, 2016, 8:30. INDICATIONS : Abdominal pain. MEDICAL HISTORY : Cardiovascular disease. Hernia, hiatal. Seizures.Kidney cancer SURGICAL HISTORY : Hysterectomy. Appendectomy.Cholecystectomy.RT nephrectomy,gastrectomy ENCOUNTER: Initial ACUITY: 1 day PAIN SCORE: 10/10 LOCATION: Bilateral abdomen. FINDINGS: Supine and upright views of the abdomen were performed. The abdominal bowel gas pattern is nonspecif ic with air-filled loops of small bowel containing air-fluid levels. There is no evidence of patholog ic distention. No abnormal masses, calcifications, or organomegaly is seen. Postsurgical clips are no carolyne. The visualized lower lungs are clear. No evidence of free intraperitoneal gas. The osseous str uctures are unremarkable. CONCLUSION: Nonspecific gas pattern with air-fluid levels identified in nondistended loops of small bowel. No evidence of pathologic distention or free air.. Filiberto Rausch MD on January 16, 2017 at 17:54 Board Certified Radiologist. This report was verified electronically.
[2017-01-16] MEDS ORDERED: DICYCLOMINE HCL 20 MG/2 ML VIAL IM ONE (18:00)
[2017-01-16 18:08] LABS: APTT (PATIENT) 26.3 SEC (24.3-30.1); PROTHROMBIN TIME - PATIENT 10.8 SEC (9.8-11.6)
[2017-01-16 18:10] LABS: ALT (GPT) 49 U/L (10-53); ANION GAP 10 MEQ/L (5-15); AST (GOT) 43 U/L (15-37); BICARBONATE 26.1 MEQ/L (21.0-32.0); BLOOD UREA NITROGEN 8 MG/DL (7-18); CHLORIDE 104 MEQ/L (98-107); GLOMERULAR FILTRATION RATE 96 ML/MIN (>89); POTASSIUM 3.2 MEQ/L (3.5-5.1); SODIUM (NA) 140 MEQ/L (136-145)
[2017-01-16 18:13] LABS: ALKALINE PHOSPHATASE 86 U/L (45-117); TOTAL BILIRUBIN ADULT 0.3 MG/DL (0.2-1.0)
[2017-01-16] MEDS ORDERED: POTA10CA PO (18:53)
[2017-01-16] MEDS: POTASSIUM CHLORIDE 20 MEQ CONTROLLED RELEASE TAB PO ONE ×2 (18:55→18:59)
== END 2017-01-16 19:18 | disposition home or self-care (01) ==
LOC: NEPD 16:30
DX: R10.9 Unspecified abdominal pain (principal); E87.6 Hypokalemia; R11.2 Nausea with vomiting, unspecified; R50.9 Fever, unspecified; F41.9 Anxiety disorder, unspecified; I25.2 Old myocardial infarction; R56.9 Unspecified convulsions; Z86.73 Personal history of transient ischemic attack (TIA), and cerebral infarction without residual deficits; Z79.899 Other long term (current) drug therapy
CPT/HCPCS: 74020; 80053; 83605; 83690; 85027; 85610; 85730; 86077; 86850; 86870; 86900; 86901; 86902; 87040; 96372; J0500; J1200

== ENCOUNTER 2017-01-17 06:44 | Emergency (ER) | payer BC ==
[~2017-01-17] VITALS: Ht 157.5 cm; Wt 36.5 kg
[~2017-01-17 06:44] MED LIST changes: -CEFU1TAB20 PO; +POTA10CA PO
[2017-01-17 06:45] VITALS: BP 174/106; PULSE 90; RESP 18; TEMP 99.1; O2SAT 100
--- NOTE | 2017-01-17 08:03 | PD ---
HPI Chief Complaint: Abdominal Pain Time Seen by Provider: 07:36 Travel History International Travel<30 days: No Contact w/Intl Traveler<30days: No Traveled to known affect area: No History of Present Illness HPI 56-year-old woman, chronic recurrent abdominal pain, 1 ounce of department and to me. She presents emergency room complaining that she's been more sick for the past 3 days, trouble vomiting, unable to keep food down, not able to keep her Valium or Dilaudid down. She initially told me that she spoke her GI doctor was sent to the emergency department because she needs TPN. She then told me that she actually hasn't talked to her GI doctor in 3 weeks. She states she hasn't really been having any bowel movements. She still having fluttering chest pain. History Past Medical History Narrative Medical Per patient Previous gastrectomy History of kidney CA History of CVA CAD, [place] Menopausal: Yes : 1 Para: 1 Social History Alcohol Use: No Tobacco Use: No Allergies-Medications (Allergen,Severity, Reaction): Coded Allergies: Compazine (Verified Allergy, Severe, Shortness of Breath, 01/16/17) Gadolinium Derivatives (Verified Allergy, Severe, Anaphylaxis, 01/16/17) Lobster (Verified Allergy, Severe, Anaphylaxis, 01/16/17) Morphine (Verified Allergy, Severe, Hives, 01/16/17) Penicillin (Verified Allergy, Severe, Rash, 01/16/17) Phenergan (Verified Allergy, Severe, Shortness of Breath, 01/16/17) Reglan (Verified Allergy, Severe, Shortness of Breath, 01/16/17) Sulfa (Verified Allergy, Severe, Rash, 01/16/17) Tigan (Verified Allergy, Severe, Shortness of Breath, 01/16/17) Toradol (Verified Allergy, Severe, Shortness of Breath, 01/16/17) Zofran (Verified Allergy, Severe, Shortness of Breath, 01/16/17) Reported Meds & Prescriptions Reported Meds & Active Scripts Active Potassium Chloride ER (Potassium Chloride) 10 Meq Cap 10 Meq PO DAILY Reported Fentanyl Patch 72 HR (Fentanyl) 25 Mcg/Hr Patch 25 Mcg T-DERMAL Q72H Zoloft (Sertraline HCl) 50 Mg Tab 50 Mg PO DAILY Dulcolax Stool Softener (Docusate Sodium) 100 Mg Cap 100 Mg PO HS Ambien (Zolpidem Tartrate) 10 Mg Tab 10 Mg PO HS PRN Dilaudid (Hydromorphone HCl) 4 Mg Tab 6 Mg PO 5 TIMES A DAY PRN Valium (Diazepam) 10 Mg Tab 10 Mg PO TID Buspirone (Buspirone HCl) 7.5 Mg Tab 30 Mg PO TID Cyanocobalamin Inj (Cyanocobalamin) 1,000 Mcg/Ml Inj 1,000 Mcg IM Q30D Review of Systems Except as stated in HPI: all other systems reviewed are Neg Physical Exam Narrative GENERAL: 56-year-old woman, thin, no acute distress. SKIN: Focused skin assessment warm/dry. CARDIOVASCULAR: Regular rate and rhythm. No murmur appreciated. RESPIRATORY: No accessory muscle use. Clear to auscultation. Breath sounds equal bilaterally. GASTROINTESTINAL: Abdomen scaphoid and flat. Moderate diffuse tenderness. MUSCULOSKELETAL: No obvious deformities. No edema. NEUROLOGICAL: Awake and alert. No obvious cranial nerve deficits. Motor grossly within normal limits. Normal speech. PSYCHIATRIC: Appropriate mood and affect; insight and judgment normal. Data Data Last Documented VS Vital Signs Date Time Temp Pulse Resp B/P Pulse Ox O2 Delivery O2 Flow Rate FiO2 01/17/17 06:45 99.1 90 18 174/106 100 Room Air Orders Dicyclomine Inj (Bentyl Inj) (01/17/17 08:30) Haloperidol Inj (Haldol Inj) (01/17/17 08:30) MDM Medical Decision Making Medical Screen Exam Complete: Yes Emergency Medical Condition: Yes Differential Diagnosis Drug-seeking, chronic abdominal pain, obstruction, pancreatitis, dehydration, other Narrative Course Medical decision making 56-year-old woman recurrent ED visits, here for the third time in 24 hours. She appears to be some degree of opiate withdrawal. She states multiple allergies to many different medications including all noncontrolled pain medicines and nausea medicines. We'll give her a dose of Bentyl and IM Haldol, outpatient follow-up. Diagnosis Primary Impression: Recurrent abdominal pain Additional Instructions: Follow-up with her primary doctor in the next 2-4 days. Return to the emergency department for any new or worsening symptoms. Med/Other Pt SpecificInfo: No Change to Meds Disposition: 01 DISCHARGE HOME Condition: Stable Ranulfo Jerez MD Jan 17, 2017 08:03
[2017-01-17] MEDS ORDERED: DICYCLOMINE HCL 20 MG/2 ML VIAL IM ONE (08:30)
[2017-01-17] MEDS ORDERED: HALOPERIDOL LACTATE 5 MG/ML AMP IM ONE (08:30)
== END 2017-01-17 10:29 | disposition home or self-care (01) ==
LOC: NEPE 06:44
DX: R10.9 Unspecified abdominal pain (principal)
CPT/HCPCS: 96372; 99284; J0500; J1630

== ENCOUNTER 2017-01-18 17:19 | Observation (INO) | payer BC ==
[~2017-01-18] VITALS: Ht 157.5 cm; Wt 35.0 kg
[2017-01-18 17:20] VITALS: BP 178/104; PULSE 97; RESP 20; TEMP 99.3; O2SAT 96
--- NOTE | 2017-01-18 17:35 | PD ---
Physical Exam Time Seen by Provider: 17:34 Narrative 56yo F sent by Dr[address] 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 TMAX 100.8. Patient seen in triage. VS reviewed. Awaiting bed placement. Data Data Last Documented VS Vital Signs Date Time Temp Pulse Resp B/P Pulse Ox O2 Delivery O2 Flow Rate FiO2 01/18/17 17:20 99.3 97 20 178/104 96 Room Air MDM Supervised Visit with AGNES: Carolin Valle Jan 18, 2017 17:35
--- NOTE | 2017-01-18 18:47 | PD ---
HPI Chief Complaint: Abdominal Pain Time Seen by Provider: 18:12 Travel History International Travel<30 days: No Contact w/Intl Traveler<30days: No Traveled to known affect area: No History of Present Illness HPI This is a 56 year old female who has a history of chronic abdominal pain and opiate dependence who presents to the emergency department reporting that she was sent in by Dr. Keen her diversional therapist's assistant who is requesting a CTA and a PICC line. Pt. reports that she has been having increasing abdominal pain since Wednesday, constant, moderate severity, associated with nausea and inability to eat. PFSH Past Medical History Hx Anticoagulant Therapy: No Asthma: No Blood Disorders: No Anxiety: Yes Depression: No Heart Rhythm Problems: No Cancer: Yes (KIDNEY) Cardiovascular Problems: Yes High Cholesterol: No Chemotherapy: No Chest Pain: No Congestive Heart Failure: No COPD: No Cerebrovascular Accident: Yes Diabetes: No Diminished Hearing: No Endocrine: No Gastrointestinal Disorders: Yes GERD: No Genitourinary: Yes (kidney cancer, removed R kidney 2004) Headaches: Yes Hiatal Hernia: Yes Hypertension: No Immune Disorder: No Implanted Vascular Access Dvce: No Kidney Stones: No Musculoskeletal: No Neurologic: Yes (seizures ) Psychiatric: Yes Reproductive: No Respiratory: No Immunizations Current: Yes Migraines: Yes Myocardial Infarction: Yes (2004) Pneumonia: Yes Radiation Therapy: No Renal Failure: No Seizures: Yes Sleep Apnea: No Thyroid Disease: No Ulcer: No Menopausal: Yes : 1 Para: 1 Miscarriage: 0 : 0 Ectopic : No Ovarian Cysts: No Tubal Ligation: Yes Past Surgical History Abdominal Surgery: Yes (total gastrectomy w/pouch 2002, hernia repair) Appendectomy: Yes Cardiac Surgery: Yes (REPAIRED HOLE IN HEART) Cholecystectomy: Yes Genitourinary Surgery: Yes (RIGHT NEPHRECTOMY) Hysterectomy: No Thoracic Surgery: No Tonsillectomy: Yes Other Surgery: Yes Social History Alcohol Use: No Tobacco Use: No Substance Use: No Allergies-Medications (Allergen,Severity, Reaction): Coded Allergies: Compazine (Verified Allergy, Severe, Shortness of Breath, 01/16/17) Gadolinium Derivatives (Verified Allergy, Severe, Anaphylaxis, 01/16/17) Lobster (Verified Allergy, Severe, Anaphylaxis, 01/16/17) Morphine (Verified Allergy, Severe, Hives, 01/16/17) Penicillin (Verified Allergy, Severe, Rash, 01/16/17) Phenergan (Verified Allergy, Severe, Shortness of Breath, 01/16/17) Reglan (Verified Allergy, Severe, Shortness of Breath, 01/16/17) Sulfa (Verified Allergy, Severe, Rash, 01/16/17) Tigan (Verified Allergy, Severe, Shortness of Breath, 01/16/17) Toradol (Verified Allergy, Severe, Shortness of Breath, 01/16/17) Zofran (Verified Allergy, Severe, Shortness of Breath, 01/16/17) Reported Meds & Prescriptions Reported Meds & Active Scripts Active Potassium Chloride ER (Potassium Chloride) 10 Meq Cap 10 Meq PO DAILY Reported Fentanyl Patch 72 HR (Fentanyl) 25 Mcg/Hr Patch 25 Mcg T-DERMAL Q72H Zoloft (Sertraline HCl) 50 Mg Tab 50 Mg PO DAILY Dulcolax Stool Softener (Docusate Sodium) 100 Mg Cap 100 Mg PO HS Ambien (Zolpidem Tartrate) 10 Mg Tab 10 Mg PO HS PRN Dilaudid (Hydromorphone HCl) 4 Mg Tab 6 Mg PO 5 TIMES A DAY PRN Valium (Diazepam) 10 Mg Tab 10 Mg PO TID Buspirone (Buspirone HCl) 7.5 Mg Tab 30 Mg PO TID Cyanocobalamin Inj (Cyanocobalamin) 1,000 Mcg/Ml Inj 1,000 Mcg IM Q30D Review of Systems Except as stated in HPI: all other systems reviewed are Neg Physical Exam Narrative GENERAL: no acute distress, frail and thin SKIN: Warm and dry. HEAD: Normocephalic. EYES: No scleral icterus. No injection or drainage. NECK: Supple, trachea midline. No JVD or lymphadenopathy. CARDIOVASCULAR: Regular rate and rhythm without murmurs, gallops, or rubs. RESPIRATORY: Breath sounds equal bilaterally. No accessory muscle use. GASTROINTESTINAL: Abdomen soft, diffusely tender to palpation with no rebound/ guarding MUSCULOSKELETAL: No cyanosis, or edema. BACK: Nontender without obvious deformity. No CVA tenderness. Data Data Last Documented VS Vital Signs Date Time Temp Pulse Resp B/P Pulse Ox O2 Delivery O2 Flow Rate FiO2 01/18/17 17:20 99.3 97 20 178/104 96 Room Air Orders Complete Blood Count With Diff (01/18/17 18:22) Basic Metabolic Panel (Bmp) (01/18/17 18:22) ^ Insert Iv (01/18/17 18:22) Vascular Access Team Consult/P PRN (01/18/17 18:26) Vascular Poc Ultrasound (01/18/17 ) MDM Medical Decision Making Medical Screen Exam Complete: Yes Emergency Medical Condition: Yes Interpretation(s) temperature is 99.3 mild tachycardia, hypertension Differential Diagnosis mesenteric ischemia, chronic abdominal pain, malnutrition, dehydration Narrative Course This is a 56 year old female who is well known to our emergency department presenting to the emergency department with worsening chronic abdominal pain. She evidently saw Dr. Keen immediately prior to arrival and he requested she come to the [facility] department for admission for a PICC line and CTA. Labs were obtained. I spoke to Dr. Caruso who was on air talent for Dr. Keen and confirmed this plan. Lilia Fields MD Jan 18, 2017 18:46
[2017-01-18 19:30] VITALS: RESP 14; O2SAT 98
--- NOTE | 2017-01-18 19:44 | PD ---
Data Data Last Documented VS Vital Signs Date Time Temp Pulse Resp B/P Pulse Ox O2 Delivery O2 Flow Rate FiO2 01/18/17 19:30 14 98 Room Air 01/18/17 17:20 99.3 97 178/104 Orders Complete Blood Count With Diff (01/18/17 18:22) Basic Metabolic Panel (Bmp) (01/18/17 18:22) ^ Insert Iv (01/18/17 18:22) Cta Abd/Pel W Iv Contrast W 3d (01/18/17 ) Iv Access Insert/Monitor (01/18/17 19:53) Ecg Monitoring (01/18/17 19:53) Oximetry (01/18/17 19:53) Sodium Chloride 0.9% Flush (Ns Flush) (01/18/17 20:00) Dicyclomine (Bentyl) (01/18/17 20:00) Al-Mag Hy-Si 40-40-4 Mg/Ml Liq (Mag-Al P (01/18/17 20:00) Lidocaine 2% Viscous (Xylocaine 2% Visco (01/18/17 20:00) Dicyclomine Inj (Bentyl Inj) (01/18/17 20:15) Potassium Chlor 20 Meq Premix (Kcl 20 Me (01/18/17 21:00) Iohexol 350 Inj (Omnipaque 350 Inj) (01/18/17 21:22) Diphenhydramine (Benadryl) (01/18/17 22:15) Sodium Chlorid 0.9% 500 Ml Inj (Ns 500 M (01/18/17 22:15) Admit Order (Ed Use Only) (01/18/17 ) Consult Gastroenterology (01/18/17 ) Labs Laboratory Tests Test 01/18/17 19:30 White Blood Count 5.3 TH/MM3 Red Blood Count 4.10 MIL/MM3 Hemoglobin 11.6 GM/DL Hematocrit 34.4 % Mean Corpuscular Volume 83.8 FL Mean Corpuscular Hemoglobin 28.2 PG Mean Corpuscular Hemoglobin 33.7 % Concent Red Cell Distribution Width 16.8 % Platelet Count 248 TH/MM3 Mean Platelet Volume 9.7 FL Neutrophils (%) (Auto) 57.7 % Lymphocytes (%) (Auto) 30.2 % Monocytes (%) (Auto) 12.0 % Eosinophils (%) (Auto) 0.0 % Basophils (%) (Auto) 0.1 % Neutrophils # (Auto) 3.1 TH/MM3 Lymphocytes # (Auto) 1.6 TH/MM3 Monocytes # (Auto) 0.6 TH/MM3 Eosinophils # (Auto) 0.0 TH/MM3 Basophils # (Auto) 0.0 TH/MM3 CBC Comment DIFF FINAL Differential Comment Sodium Level 136 MEQ/L Potassium Level 2.9 MEQ/L Chloride Level 100 MEQ/L Carbon Dioxide Level 27.4 MEQ/L Anion Gap 9 MEQ/L Blood Urea Nitrogen 14 MG/DL Creatinine 0.69 MG/DL Estimat Glomerular Filtration 88 ML/MIN Rate Random Glucose 108 MG/DL Calcium Level 9.1 MG/DL MDM Supervised Visit with AGNES: Yes Narrative Course Patient care assumed from Dr. Lilia Ramirez at 1900. This is a 56-year-old female well-known to me from previous ER visits presents emergency department for acute on chronic abdominal pain. The patient reports her 75 pound weight loss but he was to be the same weight as I saw her several months ago. The patient's new GI doctor Dr. Keen who is concerned that she is not getting enough nutrition want to have her admitted to the hospital for PICC line and TPN and a CTA of her abdomen. The patient is requesting something for nausea and states the only thing that works for her is benzodiazepines. She has multiple allergies to medications including Phenergan and Reglan Toradol Zofran and Compazine. She will be given Bentyl as well as a GI cocktail. Awaiting for her CAT scan results at this time. Last 24 hours Impressions Abdomen/Pelvis CT 01/18/17 0000 Signed Impressions: Service Date/Time: Wednesday, January 18, 2017 21:13 - CONCLUSION: No acute abnormality. Previous nephrectomy on the right. Donato Li MD My examination the patient appears at the baseline I have come to known her at. She requested something for nausea and stated that she was allergic to everything. She requested Benadryl. I have obliged her with a dose by mouth. She also requested fluids because she only has one kidney and received IV contrast. She was given a 500 cc bolus. Labs reviewed and significant for some mild hypokalemia which was being replaced. Patient was discussed with Donato Bello on-call for [facility] who will admit. Diagnosis Primary Impression: Abdominal pain Admitting Information Admitting Physician Requests: Observation Condition: Stable Wilmer Hyman MD Jan 18, 2017 19:44
[2017-01-18] MEDS ORDERED: SODIUM CHLORIDE 0.9% FLUSH 10 ML FLUSH IV FLUSH PRN (20:00)
[2017-01-18] MEDS ORDERED: DICYCLOMINE HCL 10 MG CAP PO ONE (20:00)
[2017-01-18] MEDS ORDERED: ALUMINUM/MAGNESIUM/SIMETH 30 ML CUP PO ONE (20:00)
[2017-01-18] MEDS ORDERED: LIDOCAINE VISCOUS 2% SOLN 15 ML UDC PO ONE (20:00)
[2017-01-18] MEDS ORDERED: DICYCLOMINE HCL 20 MG/2 ML VIAL IM ONE (20:15)
[2017-01-18 20:39] LABS: AUTOMATED NEUTROPHIL # 3.1 TH/MM3 (1.8-7.7); BASOPHIL % 0.1 % (0.0-2.0); HEMATOCRIT 34.4 % (35.0-46.0); HEMO FLAGS DIFF FINAL; LYMPH % 30.2 % (9.0-44.0); LYMPHOCYTE # 1.6 TH/MM3 (1.0-4.8); MEAN CELL VOLUME 83.8 FL (80.0-100.0); MEAN CORPUSCULAR HEMOGLOBIN 28.2 PG (27.0-34.0); MEAN CORPUSCULAR HGB CONC 33.7 % (32.0-36.0); NEUT % 57.7 % (16.0-70.0); PLATELET COUNT 248 TH/MM3 (150-450); RED CELL DISTRIBUTION WIDTH 16.8 % (11.6-17.2); WHITE BLOOD COUNT 5.3 TH/MM3 (4.0-11.0)
[2017-01-18 20:50] LABS: BICARBONATE 27.4 MEQ/L (21.0-32.0)
[2017-01-18 20:55] LABS: POTASSIUM 2.9 MEQ/L (3.5-5.1)
[2017-01-18] MEDS ORDERED: POTASSIUM CHLOR 20 MEQ PREMIX 100 ML IV ONE (21:00)
[2017-01-18] MEDS ORDERED: IOHEXOL 350 MG/ML 10 ML VIAL (for RAD DIAG) IV ONE (21:22)
[2017-01-18] MEDS ORDERED: diphenhydrAMINE HCL 25 MG CAP PO ONE (22:15)
[2017-01-18] MEDS ORDERED: SODIUM CHLORID 0.9% 500 ML INJ 500 ML IV ONE (22:15)
--- NOTE | 2017-01-18 22:47 | RADRPT ---
EXAM DATE/TIME: 01/18/2017 21:13 [facility] COMPARISON: CT ABDOMEN & PELVIS W CONTRAST, January 04, 2017, 11:53. INDICATIONS : Medial abdominal pain with vomiting. IV CONTRAST: 50 cc Omnipaque 350 (iohexol) IV ORAL CONTRAST: No oral contrast ingested. RADIATION DOSE: 6.42 CTDIvol (mGy) MEDICAL HISTORY : Myocardial infarction. Cardiovascular disease Seizures.Hiatal hernia. Kidney cancer. SURGICAL HISTORY : Nephrectomy, right. Total gastrectomy. ENCOUNTER: Initial ACUITY: 3 days PAIN SCALE: 8/10 LOCATION: medial abdomen TECHNIQUE: Volumetric scanning was performed using a multi-row detector CT scanner. The data was post processed with a variety of visualization algorithms including full volume maximum intensity projection, multi -planar sliding thin slab reformation, curved planar reformation, and surface rendering techniques. Using automated exposure control and adjustment of the mA and/or kV according to patient size, radiat ion dose was kept as low as reasonably achievable to obtain optimal diagnostic quality images. DICOM format image data is available electronically for review and comparison. FINDINGS: Abdominal aorta and iliac arteries are mildly tortuous. No aneurysm. There is no evidence of arterial thrombosis within the abdomen or pelvis. Visualized portions of arteries within both upper thighs al so within normal limits. Nephrectomy changes are again seen on the right. No acute solid organ abnormality demonstrated. There is no obstruction or inflammatory change of the gastrointestinal tract. There is no free fluid or lymphadenopathy. Trace atelectasis left lung base, improved. CONCLUSION: No acute abnormality. Previous nephrectomy on the right. Donato Li MD on January 18, 2017 at 22:43 Board Certified Radiologist. This report was verified electronically.
[2017-01-19] MEDS ORDERED: SENNOSIDES 8.6 MG TAB PO PRN (00:15)
[2017-01-19] MEDS ORDERED: SODIUM CHLORIDE 0.9% FLUSH 10 ML FLUSH IV FLUSH PRN ×2 (00:15→15:00)
[2017-01-19] MEDS ORDERED: BISACODYL 10 MG SUPP RECTAL PRN (00:15)
[2017-01-19] MEDS ORDERED: ACETAMINOPHEN 325 MG TAB PO PRN ×2 (00:15)
[2017-01-19] MEDS ORDERED: MAGNESIUM HYDROXIDE SUSP 30 ML CUP PO PRN (00:15)
[2017-01-19] MEDS: D5-1/2 NS + KCL 20 MEQ INJ 1,000 ML IV SCH ×3 (00:29→20:04)
[2017-01-19 01:30] VITALS: BP 149/92; PULSE 72; RESP 16; O2SAT 98
[2017-01-19 04:05] VITALS: BP 127/78; PULSE 72; RESP 18; TEMP 98.6; O2SAT 98
[2017-01-19] MEDS: DICYCLOMINE HCL 20 MG TAB PO PRN ×2 (04:12→13:37)
[2017-01-19] MEDS ORDERED: SCOPOLAMINE 1.5 MG PATCH T-DERMAL PRN (05:30)
[2017-01-19 07:22] VITALS: BP 131/82; PULSE 67; RESP 16; TEMP 98.9; O2SAT 98
[2017-01-19] MEDS: FAMOTIDINE 20 MG TAB PO SCH ×2 (08:50→20:45)
[2017-01-19] MEDS: SODIUM CHLORIDE 0.9% FLUSH 10 ML FLUSH IV FLUSH SCH ×2 (08:51→20:48)
[2017-01-19] MEDS: HEPARIN SODIUM - SQ 10,000 UNITS/ML VIAL SQ SCH ×2 (08:51→20:46)
--- NOTE | 2017-01-19 09:21 | HHI.HP ---
HPI Service [facility] Primary Care Physician No Primary Care Physician Admission Diagnosis Acute on chronic abdominal pain Diagnoses: Chief Complaint: abdominal pain, weight loss, nausea Travel History International Travel<30 Days: No Contact w/Intl Traveler <30 Da: No Traveled to Known Affected Are: No History of Present Illness This is a 56-year-old female with significant past medical history of chronic abdominal pain with extensive GI workup, gastroparesis, previous pancreatitis, chronic opioid use, CAD, history of kidney cancer post-nephrectomy, history of embolic strokes, anxiety. Patient has had multiple admissions and ER visits. She was last admitted under our services 01/08-01/09 for the same. According to the patient, she recently established herself with a new chemical project engineer, Dr. Churchill. She was sent to see him on Wednesday and he was concerned that she continues to lose weight and is not getting enough nutrition. She has visited the emergency room several times in the last couple days. She again presented yesterday at the request of Dr. Churchill because of her ongoing weight loss and inability to eat as well as the need for a CTA and a PICC line. Patient indicates that she has dry heaves, she's not able to vomit however she is able to produce bile color gastric emesis. She has only been able to eat very small amounts of liquids. She does have loose stools. No blood in the stool, no blood in the emesis. She complains of diffuse abdominal pain that is controlled with oral Dilaudid. She has multiple allergies to antiemetics and the only thing that works is benzodiazepines. Patient was evaluated in the emergency room, laboratory workup was significant for hypokalemia, potassium 2.9. CT of the abdomen and pelvis was completed which did not reveal any significant findings. Complaining of pain, she still nauseous. She is very concerned about her Dilaudid and whether she will go through withdrawals if she doesn't continue to take them here. Laboratory workup currently standing. Patient is admitted for further evaluation and treatment. Review of Systems Constitutional: COMPLAINS OF: Fatigue, Weight loss, DENIES: Diaphoretic episodes, Fever, Weight gain, Chills, Dizziness, Change in appetite, Night Sweats Endocrine: DENIES: Abnorml menstrual pattern, Heat/cold intolerance, Polydipsia , Polyuria, Polyphagia Eyes: DENIES: Blurred vision, Diplopia, Eye inflammation, Eye pain, Vision loss , Photosensitivity, Double Vision Ears, nose, mouth, throat: DENIES: Tinnitus, Hearing loss, Vertigo, Nasal discharge, Oral lesions, Throat pain, Hoarseness, Ear Pain, Running Nose, Epistaxis, Sinus Pain, Toothache, Odynophagia Respiratory: DENIES: Apneas, Cough, Snoring, Wheezing, Hemoptysis, Sputum production, Shortness of breath Cardiovascular: DENIES: Chest pain, Palpitations, Syncope, Dyspnea on Exertion , PND, Lower Extremity Edema, Orthopnea, Claudication Gastrointestinal: COMPLAINS OF: Abdominal pain, Diarrhea, Nausea, Vomiting, Anorexia, DENIES: Black stools, Bloody stools, Constipation, Difficulty Swallowing Genitourinary: DENIES: Abnormal vaginal bleeding, Dysmenorrhea, Dyspareunia, Sexual dysfunction, Urinary frequency, Urinary incontinence, Urgency, Hematuria , Dysuria, Nocturia, Vaginal discharge Musculoskeletal: DENIES: Joint pain, Muscle aches, Stiffness, Joint Swelling, Back pain, Neck pain Integumentary: DENIES: Abnormal pigmentation, Pruritus, Rash, Nail changes, Breast masses, Breast skin changes, Nipple discharge Hematologic/lymphatic: DENIES: Bruising, Lymphadenopathy Immunologic/allergic: DENIES: Eczema, Urticaria Neurologic: DENIES: Abnormal gait, Headache, Localized weakness, Paresthesias, Seizures, Speech Problems, Tremor, Poor Balance Psychiatric: COMPLAINS OF: Anxiety, DENIES: Confusion, Mood changes, Depression, Hallucinations, Agitation, Suicidal Ideation, Homicidal Ideation, Delusions Past Family Social History Past Medical History 1. Anxiety. 2. History of kidney cancer, status post nephrectomy. 3. History of OK in 2005. 4. History of tubal ligation in the past. 5. Pancreatitis 6. Chronic abd. pain with extensive GI work up 7. Malnutrition 8. Weight loss 9. Anxiety 10. Chronic opioid use. 11. Gastroparesis 12. Questionable seizures 13. PFO which led to embolic strokes Past Surgical History 1. Right nephrectomy 2. Tubal ligation 3. Gastrectomy with pouch 4. Hernia repair 5. Appendectomy 6. Cholecystectomy 7. Hysterectomy 8. Tonsillectomy 9. Fundoplication 10. PFO closure with bluing oven tender 11. EGD/colonoscopy Reported Medications Reported Meds & Active Scripts Active Potassium Chloride ER (Potassium Chloride) 10 Meq Cap 10 Meq PO DAILY Reported Fentanyl Patch 72 HR (Fentanyl) 25 Mcg/Hr Patch 25 Mcg T-DERMAL Q72H Zoloft (Sertraline HCl) 50 Mg Tab 50 Mg PO DAILY Dulcolax Stool Softener (Docusate Sodium) 100 Mg Cap 100 Mg PO HS Ambien (Zolpidem Tartrate) 10 Mg Tab 10 Mg PO HS PRN Dilaudid (Hydromorphone HCl) 4 Mg Tab 6 Mg PO 5 TIMES A DAY PRN Valium (Diazepam) 10 Mg Tab 10 Mg PO TID Buspirone (Buspirone HCl) 7.5 Mg Tab 30 Mg PO TID Cyanocobalamin Inj (Cyanocobalamin) 1,000 Mcg/Ml Inj 1,000 Mcg IM Q30D Allergies: Coded Allergies: Compazine (Verified Allergy, Severe, Shortness of Breath, 01/18/17) Gadolinium Derivatives (Verified Allergy, Severe, Anaphylaxis, 01/18/17) Lobster (Verified Allergy, Severe, Anaphylaxis, 01/18/17) Morphine (Verified Allergy, Severe, Hives, 01/18/17) Penicillin (Verified Allergy, Severe, Rash, 01/18/17) Phenergan (Verified Allergy, Severe, Shortness of Breath, 01/18/17) Reglan (Verified Allergy, Severe, Shortness of Breath, 01/18/17) Sulfa (Verified Allergy, Severe, Rash, 01/18/17) Tigan (Verified Allergy, Severe, Shortness of Breath, 01/18/17) Toradol (Verified Allergy, Severe, Shortness of Breath, 01/18/17) Zofran (Verified Allergy, Severe, Shortness of Breath, 01/18/17) Active Ordered Medications Inpatient Medications Acetaminophen (Tylenol) 650 mg Q6H PRN PO PAIN SCALE 1 TO 2; Start 01/19/17 at 00:15 Al Hydrox/Mg Hydrox/Simethicone (Mag-Al Plus Susp Liq) 30 ml ONCE ONCE PO Last administered on 01/18/17t 20:08; Start 01/18/17 at 20:00; Stop 01/18/17 at 20:01; Status DC Bisacodyl (Dulcolax Supp) 10 mg DAILY PRN RECTAL SEVERE CONSITIPATION; Start at 00:15 Dicyclomine HCl (Bentyl) 20 mg TID PRN PO abd pain Last administered on 04:12; Start 01/19/17 at 00:15 Dicyclomine HCl 20 mg 20 mg ONCE ONCE IM Last administered on 01/18/17 20:45 ; Start 01/18/17 at 20:15; Stop 01/18/17 at 20:16; Status DC Diphenhydramine HCl 25 mg 25 mg ONCE ONCE PO Last administered on 01/18/17 22 :14; Start 01/18/17 at 22:15; Stop 01/18/17 at 22:16; Status DC Famotidine (Pepcid) 10 mg BID PO Last administered on 01/19/17 08:50; Start at 09:00 Heparin Sodium (Porcine) (Heparin Inj) 5,000 units Q12HR SQ Last administered on 01/19/17 08:51; Start 01/19/17 at 09:00 Lidocaine HCl (Xylocaine 2% Viscous) 15 ml ONCE ONCE PO Last administered on 20:09; Start 01/18/17 at 20:00; Stop 01/18/17 at 20:01; Status DC Magnesium Hydroxide (Milk Of Magnesia Liq) 30 ml Q12H PRN PO MILD - MODERATE CONSTIPATION; Start 01/19/17 at 00:15 Potassium Chloride/Dextrose/ Sod Cl (D5-1/2 NS + KCl 20 Meq Inj) 1,000 ml @ 100 mls/hr Q10H IV Last administered on 01/19/17 00:29; Start 01/19/17 at 00: 04 Potassium Chloride (KCl 20 Meq Premix Inj) 100 ml @ 50 mls/hr ONCE ONCE IV Last administered on 01/18/17 21:25; Start 01/18/17 at 21:00; Stop 01/18/17 at 22:59; Status DC Scopolamine (Transderm-Scop 1.5 Mg Patch.72 Hr) 1 patch Q72H PRN T-DERMAL NAUSEA Last administered on 01/19/17 06:01; Start 01/19/17 at 05:30 Sennosides (Senokot) 17.2 mg Q12H PRN PO MODERATE - SEVERE CONSTIPATION; Start 01/19/17 at 00:15 Sodium Chloride (NS Flush) 2 ml BID IV FLUSH ; Start 01/19/17 at 09:00 Family History Mother had MS and COPD. Father had COPD. Social History lives with No ETOH no smoking no illegal drug use. Physical Exam Vital Signs Vital Signs Date Time Temp Pulse Resp B/P Pulse Ox O2 Delivery O2 Flow Rate FiO2 01/19/17 07:22 98.9 67 16 131/82 98 01/19/17 04:05 98.6 72 18 127/78 98 01/19/17 01:30 72 16 149/92 98 Room Air 01/18/17 19:30 14 98 Room Air 01/18/17 19:12 18 01/18/17 17:20 99.3 97 20 178/104 96 Room Air Physical Exam GENERAL: This is a cachectic, female. SKIN: No rashes, ecchymoses or lesions. Cool and dry. Poor skin turgor. HEAD: Atraumatic. Normocephalic. No temporal or scalp tenderness. EYES: Pupils equal round and reactive. Extraocular motions intact. No scleral icterus. No injection or drainage. ENT: Nose without bleeding, purulent drainage or septal hematoma. Throat without erythema, tonsillar hypertrophy or exudate. Uvula midline. Airway patent. NECK: Trachea midline. No JVD or lymphadenopathy. Supple, nontender, no meningeal signs. CARDIOVASCULAR: Regular rate and rhythm without murmurs, gallops, or rubs. RESPIRATORY: Clear to auscultation. Breath sounds equal bilaterally. No wheezes , rales, or rhonchi. GASTROINTESTINAL: Abdomen concave, diffuse tenderness, nondistended. No hepato- splenomegaly, or palpable masses. No guarding. MUSCULOSKELETAL: Extremities without clubbing, cyanosis, or edema. No joint tenderness, effusion, or edema noted. No calf tenderness. Negative Homans sign bilaterally. NEUROLOGICAL: Awake and alert. Cranial nerves II through XII intact. Motor and sensory grossly within normal limits. Five out of 5 muscle strength in all muscle groups. Normal speech. Laboratory Laboratory Tests Test 01/18/17 19:30 White Blood Count 5.3 Red Blood Count 4.10 Hemoglobin 11.6 Hematocrit 34.4 Mean Corpuscular Volume 83.8 Mean Corpuscular Hemoglobin 28.2 Mean Corpuscular Hemoglobin 33.7 Concent Red Cell Distribution Width 16.8 Platelet Count 248 Mean Platelet Volume 9.7 Neutrophils (%) (Auto) 57.7 Lymphocytes (%) (Auto) 30.2 Monocytes (%) (Auto) 12.0 Eosinophils (%) (Auto) 0.0 Basophils (%) (Auto) 0.1 Neutrophils # (Auto) 3.1 Lymphocytes # (Auto) 1.6 Monocytes # (Auto) 0.6 Eosinophils # (Auto) 0.0 Basophils # (Auto) 0.0 CBC Comment DIFF FINAL Differential Comment Sodium Level 136 Potassium Level 2.9 Chloride Level 100 Carbon Dioxide Level 27.4 Anion Gap 9 Blood Urea Nitrogen 14 Creatinine 0.69 Estimat Glomerular Filtration 88 Rate Random Glucose 108 Calcium Level 9.1 Result Diagram: 01/18/17192901/18/17 193 Imaging Last Impressions Abdomen/Pelvis CT 01/18/17 0000 Signed Impressions: Service Date/Time: Wednesday, January 18, 2017 21:13 - CONCLUSION: No acute abnormality. Previous nephrectomy on the right. Donato Li MD Assessment and Plan Problem List: (1) Chronic abdominal pain (2) Nausea & vomiting (3) Gastroparesis (4) GERD (gastroesophageal reflux disease) (5) Recurrent abdominal pain (6) Hypokalemia (7) Chronic narcotic dependence (8) hx right nephrectomy (9) Hx of renal cell cancer (10) Hx of hiatal hernia (11) History of fundoplication (12) History of gastrectomy (13) History of CVA (cerebrovascular accident) (14) Malnourished Assessment and Plan Admit to Dr. Jo 56-year-old female with history of chronic abdominal pain, with multiple admissions and ER visits. Recently discharged on Discharged on 01/06, presents again with recurrent abdominal pain, intractable nausea, vomiting. CT of the abdomen and pelvis did not reveal any acute findings. Severely malnourished and underweight. -Continue with IV fluids Continue with potassium replacement Gastroenterology has been consulted, we will wait for their input Continue clear liquid diet Continue with Valium as needed for nausea We will defer starting narcotics at this time. Hypokalemia - potassium has been replaced, labs pending Chronic narcotic dependence We will hold off on starting narcotics at this time History of gastrectomy, hiatal hernia, gastroparesis Recommend that she continue to follow with GI as outpatient History of nephrectomy Renal function stable Continue to monitor renal function closely -Treated with IV fluids Heparin for DVT prophylaxis Pepcid for GI prophylaxis Home medications reviewed, initiated as indicated Plan of care has been discussed with the patient, attending and registered nurse. Further management of the patient will be dependent on the hospital course This patient was seen by myself and Dr. Jo, this H&P is written on his behalf Problem Qualifiers (1) Nausea & vomiting: (2) GERD (gastroesophageal reflux disease): Qualified Code: K21.9 - Gastroesophageal reflux disease, esophagitis presence not specified (3) Malnourished: Qualified Code: E43 - Severe protein-calorie malnutrition Leatha Levine Jan 19, 2017 09:20
--- NOTE | 2017-01-19 09:41 | HHI.FF ---
Face to Face Verification Diagnosis: (1) Malnourished (2) Gastroparesis (3) Recurrent abdominal pain Home Health Nursing Order: Medical education Nursing assessment with vital signs IV medication administration Instructions: ARRANGE TPN AT HOME Data Base Design Analyst Order: To Evaluate: Support services I have seen patient Gabrielle Alcala on 01/19/17. My clinical findings support the need for the requested home health care services because: Deconditioned w/ increased weakness Need for psychosocial assistance Injectable med education/admin I certify that my clinical findings support that this patient is homebound because: Impaired cognitive ability/safety Need for psychosocial assistance Leatha Levine [facility] Jan 19, 2017 09:41
[2017-01-19] MEDS ORDERED: fentaNYL 25 MCG/HR PATCH T-DERMAL SCH (10:00)
--- NOTE | 2017-01-19 10:17 | MB ---
cc: JESSENIA SANCHEZ DATE OF CONSULTATION 01/19/2017 DATE OF 1960 REASON FOR CONSULTATION Abdominal pain, weight loss, dry heaves, nausea. HISTORY OF PRESENT ILLNESS A 56-year-old female who has significant past medical history with chronic abdominal pain. She has had GI evaluation in the past including endoscopy by Dr. Hoover. I do not have those reports available at this time. She has a history of gastroparesis, previous pancreatitis, chronic opioid use, history of right renal carcinoma post nephrectomy, history of embolic strokes, severe anxiety and previous subtotal to total gastrectomy years ago for apparent gastric perforation possibly related to a previous type of fundoplication surgeries. She has had multiple admissions and hospitalization and ER visits. She has been seen by the undersigned recently in the office. She was seen about three weeks ago. Weight was about 84 pounds. She dropped down to 77 pounds, unable to eat with failure to thrive. She has chronic upper abdominal pain. She is allergic to multiple antiemetic medications. She was seen again in the office feeling quite weak, dehydrated, unable to eat with dry heaves requesting further evaluation as an inpatient and we directed her to the emergency room for admission as she will probably require TPN via PICC line insertion that we have ordered. She had a CT scan of the abdomen and pelvis on admission which did not reveal any acute pathology. Postsurgical changes have been noted. She does have a history of adhesions as well. Potassium was noted to be 2.9 and that is being replaced. She does complain of pain and is still nauseated with dry heaves. She is requesting diazepam which does help in this situation and this will be managed by her medical team at this point. Her hemoglobin and white count was stable. White count was normal, hemoglobin was 11.7. The rest her electrolytes were stable. I did request also that she should have a CT angiogram during this admission to rule out vascular disease causing chronic abdominal pain and weight loss. PAST HISTORY Was mentioned above in part, she has a history of: 1. VT 2. Tube ligation 3. Gastroparesis 4. Appendectomy 5. Cholecystectomy 6. Previous EGD, colonoscopy Dr. Hoover MEDICATIONS Include: 1. Fentanyl patch 2. Zoloft 3. Dulcolax 4. Ambien 5. Dilaudid 6. Valium 7. Buspirone ALLERGIES COMPAZINE, MORPHINE, PENICILLIN, PHENERGN, REGLAN, SULFA, TIGAN, TORADOL AND ZOFRAN. SOCIAL HISTORY She denies smoking or alcohol. FAMILY HISTORY Negative from a GI standpoint. REVIEW OF SYSTEMS A 12-point review of systems is as mentioned above. She has had no GI bleeding, fever or chills of late. EXAMINATION This is a cachectic-appearing chronically ill-appearing fragile female alert, complaining of abdominal pain and nausea. HEENT: Exam extremely dry mucosa noted. Normocephalic. Sclerae anicteric. NECK: Supple. CARDIAC: S1-S2. CHEST: Clear. ABDOMEN: The abdomen is flat with diffuse tenderness more so in the epigastric space. She has no rebound, minimal guarding. Bowel sounds were audible. Scars are noted. EXTREMITIES: Extreme muscle wasting is noted. No edema. NEUROLOGIC: Appears intact. IMPRESSION 1. Profound weight loss 2. Malnutrition 3. Chronic nausea 4. Chronic abdominal pain 5. Failure to thrive PLAN Continue IV hydration. We will proceed with EGD for further evaluation of her upper GI complaints and pain. The procedure risks and benefits were discussed including risks of bleeding, sepsis, perforation, risks of anesthesia. Analgesic therapy as per medical staff and medical team. Would strongly consider a consultation with the pain service as well. I have ordered for a PICC line and will consult nutritional service for TPN requirements and hopefully TPN after discharge. MD ANDREWS Lipscomb/MARITA /9:43 AM /10:01 AM
[2017-01-19] MEDS: SERTRALINE HCL 50 MG TAB PO SCH (10:38)
[2017-01-19] MEDS: POTASSIUM CHLORIDE 10 MEQ CAP PO SCH (10:38)
[2017-01-19] MEDS ORDERED: HYDROmorphone HCL PF 1 MG/ML VIAL IV PUSH ONE (11:00)
[2017-01-19 11:43] VITALS: BP_SYST 153; BP_SYST 172; BP_DIAS 93; BP_DIAS 94; PULSE 71; RESP 16; TEMP 98; O2SAT 97
[2017-01-19 12:20] LABS: HEMATOCRIT 32.1 % (35.0-46.0); MEAN CELL VOLUME 83.6 FL (80.0-100.0); MEAN CORPUSCULAR HEMOGLOBIN 28.1 PG (27.0-34.0); MEAN CORPUSCULAR HGB CONC 33.6 % (32.0-36.0); PLATELET COUNT 211 TH/MM3 (150-450); RED BLOOD COUNT 3.84 MIL/MM3 (4.00-5.30); RED CELL DISTRIBUTION WIDTH 16.6 % (11.6-17.2); REVIEW FLAG FINAL; WHITE BLOOD COUNT 4.2 TH/MM3 (4.0-11.0)
[2017-01-19] MEDS ORDERED: SUMA100T2 PO (12:28)
[2017-01-19] MEDS ORDERED: VITA1000 PO (12:41)
[2017-01-19] MEDS ORDERED: BUTA1CAP PO (12:41)
[2017-01-19] MEDS ORDERED: DICY20TA10 PO (12:41)
[2017-01-19] MEDS ORDERED: MAGN400T2 PO (12:41)
[2017-01-19] MEDS ORDERED: THIA200P IM (12:41)
[2017-01-19] MEDS ORDERED: VITA400T20 PO (12:41)
[2017-01-19] MEDS ORDERED: CALCTAB8 PO (12:41)
[2017-01-19 13:00] LABS: BICARBONATE 26.3 MEQ/L (21.0-32.0); MAGNESIUM 2.2 MG/DL (1.5-2.5); POTASSIUM 3.6 MEQ/L (3.5-5.1)
[2017-01-19] MEDS ORDERED: busPIRone HCL 5 MG TAB PO SCH (13:00)
[2017-01-19] MEDS: DIAZEPAM 10 MG TAB PO SCH ×2 (13:37→17:38)
--- NOTE | 2017-01-19 13:47 | RADRPT ---
EXAM DATE/TIME: 01/19/2017 13:18 [place] COMPARISON: ABDOMEN FLAT & UPRIGHT, January 16, 2017, 17:43. INDICATIONS : Picc line placement. MEDICAL HISTORY : Myocardial infarction. SURGICAL HISTORY : kidney surgery and had a blood clot that went through a hole in her heart. occulator to take care of hole in the heart. ENCOUNTER: Initial ACUITY: 3 days PAIN SCORE: 0/10 LOCATION: Bilateral chest FINDINGS: The exam demonstrates a PICC which enters from the right side the catheter tip is in appropriate loca tion at the atriocaval junction. The heart is at the upper limits of normal in size. There chronic interstitial changes. The lungs are otherwise clear. The visualized bony structures are grossly intact. CONCLUSION: 1. PICC in satisfactory position. Noble Chinchilla MD on January 19, 2017 at 13:43 Board Certified Radiologist. This report was verified electronically.
[2017-01-19] MEDS ORDERED: MIDAZOLAM HCL 2 MG/2 ML VIAL ONE (15:10)
[2017-01-19] MEDS ORDERED: PROPOFOL 200 MG/20 ML AMP IV ONE (16:05)
[2017-01-19 20:01] VITALS: BP 125/71; PULSE 98; RESP 20; TEMP 98.4; O2SAT 98
[2017-01-19] MEDS: busPIRone HCL 5 MG TAB PO SCH (20:45)
[2017-01-19] MEDS: ZOLPIDEM TARTRATE 10 MG TAB PO PRN (20:45)
[2017-01-20 04:03] VITALS: BP 137/81; PULSE 70; RESP 18; TEMP 98.2; O2SAT 94
[2017-01-20] MEDS: D5-1/2 NS + KCL 20 MEQ INJ 1,000 ML IV SCH (05:59)
[2017-01-20] MEDS ORDERED: HYDROmorphone HCL 2 MG TAB PO ONE (08:15)
--- NOTE | 2017-01-20 08:17 | HHI.PR ---
Subjective Remarks c/o chronic abd pain, states that one time Dilaudid helped yesterday slept well last night not as nauseous wants to eat no fever no acute changes overnight Objective Objective Results - Vital Signs Date Time Temp Pulse Resp B/P Pulse Ox O2 Delivery O2 Flow Rate FiO2 01/20/17 04:03 98.2 70 18 137/81 94 01/19/17 20:01 98.4 98 20 125/71 98 01/19/17 16:55 99.0 69 16 144/92 100 01/19/17 16:28 66 16 139/84 100 01/19/17 14:49 01/19/17 11:43 98.0 71 16 153/93 97 I/O 01/19/17 01/19/17 01/19/17 01/20/17 01/20/17 01/20/17 07:00 15:00 23:00 07:00 15:00 23:00 Intake Total 15 ml Balance 15 ml Intake Oral 15 ml Result Diagram: 01/19/17 1205 01/19/17 1205 Imaging Last Impressions Abdomen/Pelvis CT 01/18/17 0000 Signed Impressions: Service Date/Time: Wednesday, January 18, 2017 21:13 - CONCLUSION: No acute abnormality. Previous nephrectomy on the right. Donato Li MD Other Results Laboratory Tests Test 01/19/17 12:05 White Blood Count 4.2 Red Blood Count 3.84 Hemoglobin 10.8 Hematocrit 32.1 Mean Corpuscular Volume 83.6 Mean Corpuscular Hemoglobin 28.1 Mean Corpuscular Hemoglobin 33.6 Concent Red Cell Distribution Width 16.6 Platelet Count 211 Mean Platelet Volume 9.3 Sodium Level 135 Potassium Level 3.6 Chloride Level 101 Carbon Dioxide Level 26.3 Anion Gap 8 Blood Urea Nitrogen 12 Creatinine 0.61 Estimat Glomerular Filtration 101 Rate Random Glucose 109 Calcium Level 8.7 Phosphorus Level 2.7 Magnesium Level 2.2 ROS General: Weakness HEENT: No: Sore Throat, Dysphagia Cardiac: No: Chest Pain, Edema, Palpitations Pulmonary: No: Cough, SOB, Wheezing GI: N/V (nausea ) /HEAD OF ART: No: Dysuria, Urgency Neuro/MS: No: Lightheaded, Confusion Psych: Anxiety Skin: No: Itching, Rash Physical Exam Physical Exam PHYSICAL EXAMINATION GENERAL: This is a well-developed, well-nourished female who appears to be in no acute distress. She is alert and awake, []. HEAD: Normocephalic without any lesion or mass noted. Facial features appear symmetric. EYES: Perrla, Normal eye movement, [] Icterus. [] Conj congestion. OROPHARYNGEAL: Oropharynx without erythema or edema. MOUTH/THROAT: Tongue midline []. Buccal mucosa is moist []. NECK: Supple. No nuchal rigidity or lymphadenopathy. Trachea midline without deviation. Thyroid not palpable, no bruits appreciated. CARDIAC: Regular rhythm, regular rate, S1 and S2 are heard. Murmur []; no gallops or rubs. LUNGS: Clear to auscultation bilaterally. [] wheeze, [] rhonchi or [] rale. No use of accessory muscles on inspiration or expiration. ABDOMEN: Soft, nontender, no organomegaly or masses. Bowel sounds are heard in all four quadrants. No rebound. No guarding. EXTREMITIES: [] edema. Pulses equal bilateral. [] cyanosis. NEUROLOGICAL: Patient mood and affect appropriate. Cranial nerves II through XII grossly intact. Muscle strength 5/5 in the upper and lower extremities bilaterally. Deep tendon reflexes are 2+ in the upper and lower extremities bilaterally. SKIN:Warm and moist PSYCH: Mood and affect appropriate Urinary Catheter: No Vascular Central Line Catheter: Yes Assessment to: Continue Date of Insertion: Jan 19, 2017 Line: PICC A/P Diagnosis: (1) Chronic abdominal pain (2) Nausea & vomiting (3) Gastroparesis (4) GERD (gastroesophageal reflux disease) (5) Recurrent abdominal pain (6) Hypokalemia (7) Chronic narcotic dependence (8) hx right nephrectomy (9) Hx of renal cell cancer (10) Hx of hiatal hernia (11) History of fundoplication (12) History of gastrectomy (13) History of CVA (cerebrovascular accident) (14) Malnourished Assessment and Plan 56-year-old female with history of chronic abdominal pain, with multiple admissions and ER visits. Recently discharged on Discharged on 01/06, presents again with recurrent abdominal pain, intractable nausea, vomiting. CT of the abdomen and pelvis did not reveal any acute findings. Severely malnourished and underweight. History of gastrectomy, hiatal hernia, gastroparesis Failure to thrive -DC IVF after TPN is started Appreciate GI input, d/w Dr. Keen yesterday -S/P EGD 01/19, bx done, no acute findings -plan is for angiogram KATHIA r/o ischemic etiology today Continue with Valium as needed for nausea -Start TPN today, has PICC in place Chronic abd pain Chronic narcotic dependence -Dilaudid 2 mg PO x 1 today -continue with Fentanyl patch Hypokalemia -replaced History of nephrectomy Renal function stable Continue to monitor renal function closely Heparin for DVT prophylaxis Pepcid for GI prophylaxis CM for DC planning, arrange TPN for home Poss dc tomorrow after work up completed D/W RN D/W Dr. Jo D/W pt This patient was seen by myself and Dr. Jo, this note is written on his behalf Problem Qualifiers (1) Nausea & vomiting: (2) GERD (gastroesophageal reflux disease): Qualified Code: K21.9 - Gastroesophageal reflux disease, esophagitis presence not specified (3) Malnourished: Qualified Code: E43 - Severe protein-calorie malnutrition Leatha Levine Jan 20, 2017 08:16
[2017-01-20] MEDS ORDERED: HYDROmorphone HCL PF 1 MG/ML VIAL IV PUSH ONE (08:30)
[2017-01-20 08:45] VITALS: BP 119/68; PULSE 59; RESP 16; TEMP 98.2; O2SAT 98
--- NOTE | 2017-01-20 08:45 | MR ---
cc: JESSENIA SANCHEZ M.D. DATE: 01/19/2017 DATE OF : 1960 PROCEDURE Upper endoscopy. REASON FOR PROCEDURE Evaluation of upper abdominal epigastric pain, persistent nausea, dry heaves, significant weight loss. Photographs and biopsies were taken. PREMEDICATION Administered by anesthesiology. MONITORING Monitoring was accomplished with pulse oximeter, EKG, blood pressure monitor. PROCEDURE NOTE After informed consent was obtained and the procedure risks and benefits were explained including the risks of bleeding, sepsis, perforation, risk of anesthesia, the patient was placed in left lateral position. The videoscope was inserted in the esophagus under direct visualization. The esophagus appeared to be unremarkable with a well-demarcated Z-line. There was a very short gastric remnant noted about 4 cm. There was some minimal erythema junction to the small bowel was present, two biopsies were taken here. The small bowel anastomosis appeared to be grossly normal. A scope was passed to as far as it could be passed. The small bowel mucosa appeared to be grossly normal. The scope was gradually withdrawn. Two small bowel biopsies were taken as well for sampling. The patient tolerated the procedure well and no immediate complications were noted. IMPRESSION This examination revealed an ultra short gastric remnant with anastomosis to the small bowel. The gastric remnant appeared to be about 4 cm in length. Two biopsies were taken in the gastric remnant and two biopsies were taken in the small bowel as well for sampling and evaluation. PLAN Follow up biopsies taken today. I have started the patient on some Carafate therapy as well. We will initiate clear to full liquids and also initiate hyperalimentation for profound weight loss. The patient's abdominal pain may be on the basis of intra-abdominal adhesions from prior surgical procedures. Poor motility may also be responsible for her nausea secondary to extensive surgery, etc. I have discussed this with the patient. Once TPN has been started, hopefully discharge with outpatient management. The patient may need a pain management consult as well. MD ANDREWS Lipscomb/SYLVIA /4:33 PM /8:26 AM
[2017-01-20] MEDS: SODIUM CHLORIDE 0.9% FLUSH 10 ML FLUSH IV FLUSH SCH ×3 (09:00→22:35)
[2017-01-20] MEDS: POTASSIUM CHLORIDE 10 MEQ CAP PO SCH (09:00)
[2017-01-20] MEDS: DIAZEPAM 10 MG TAB PO SCH ×3 (10:44→18:06)
[2017-01-20] MEDS: SUCRALFATE 1 GM/10 ML CUP PO SCH ×3 (10:46→18:06)
[2017-01-20] MEDS: FAMOTIDINE 20 MG TAB PO SCH ×2 (10:47→22:38)
[2017-01-20] MEDS: HEPARIN SODIUM - SQ 10,000 UNITS/ML VIAL SQ SCH ×2 (10:48→22:39)
[2017-01-20] MEDS: SERTRALINE HCL 50 MG TAB PO SCH (10:48)
[2017-01-20] MEDS: DICYCLOMINE HCL 20 MG TAB PO PRN ×2 (10:56→18:05)
[2017-01-20] MEDS: busPIRone HCL 5 MG TAB PO SCH ×2 (10:57→22:38)
[2017-01-20 11:44] VITALS: BP 120/70; PULSE 76; RESP 16; TEMP 98.5; O2SAT 100
--- NOTE | 2017-01-20 14:12 | HHI.GIFU ---
GI Follow-up Note Consult Follow-up Subjective: Patient laying in bed comfortably. patient does have a PICC line. Her CTA of the abdomen and pelvis was reviewed with her Objective: PHYSICAL EXAMINATION: Vitals signs stable No fever . CHEST: Chest is clear to auscultation and percussion. CARDIAC: Regular rate and rhythm with no murmur gallop or rubs. ABDOMEN: Soft, nondistended, mild tenderness, no hepatosplenomegaly; bowel sounds are present in all four quadrants. EXTREMITIES: No clubbing, cyanosis, or edema. SKIN: Normal; no rash; no jaundice. NURSE FIRST AID: No focal deficits; alert and oriented times three. Available Data (labs, X- Rays, Procedues) : ASSESSMENT/PLAN: 1. chronic pain with nausea and weight loss PLAN: 1. Continue full liquid diet. As an outpatient she could not tolerate real food. 2. once we can arrange home TPN she can be discharged to followup with Dr. Keen It was a pleasure seeing Gabrielle Alcala. Thank you for this consult. Entered by: Franklin Lara MD Jan 20, 2017 14:12
--- NOTE | 2017-01-20 14:31 | PD.CONS ---
Consult Service Palliative Care Consult Requested By Abner Primary Care Physician Annalisa Primary Care Physician Reason for Consultation a. To assist with evaluation and management of symptoms including: epigastric/abdominal pain b. To assist medical decision maker(s) with: better understanding of current medical conditions; weighing benefits/burdens of medical treatment options; making medical treatment decisions. HPI History of Present Illness 56-year-old female with past medical history of chronic abdominal pain, gastroparesis, chronic opioid use previous pancreatitis, chronic opioid use, history of kidney cancer post-nephrectomy, CAD, failure to thrive, with multiple ER visits presented to the hospital on 01/18/2017 for abdominal pain. Patient was only recently discharged on 01/06/2017 for abdominal pain. Per pt, she has had abdominal pain since 2002, when she a gastrectomy. Per pt it was performed in [facility]. Per pt, she had it done due to "bad reflux" and multiple aspiration pneumonia. She stated since then it has been "downhill." She states she has multiple adhesions. She has other complication in the past including [place], TIA, and CVA where she went into a "Coma," and was intubated in the icu. She had moved to [place] about a year ago and now lives in [place]. She endorse she just have a new primary care physician in which does not recall the name. Patient was sent over by a special skills officer for abdominal pain and dry heaving, there was reported to be happening for 5 days. Patient also has a Temp of 100.8. He was also associated nausea and decreased appetite. In the ER : Vitals: 99.3, pulse is 97, blood pressure is 170/104, pulse ox 96% on room air Sodium is 136, potassium 2.9, course 100, bicarbonate is 27.4, BUN is 14, creatinine 0.69 WBC 5.3, H&H 11.6 and 34.4, platelets [address] shows no acute abnormality. Previous nephrectomy on the right. Hospitalists was consulted to manage patient. Patient was placed on IV fluids, given potassium replacement, GI was consulted. GI evaluated patient, and noted the patients weight has dropped from 84 pounds 277 pounds unable to eat with failure to thrive. Patient has chronic upper abdominal pain. GI noted that patients scans have been negative, and that she has a history of adhesion. Palliative care was consulted to manage pain and review goals of care. Patient had EGD yesterday. Pt pain is mid epigastric area and radiates to the back. Pt state pain is excruciating, sharp. Pt did not have any vomiting this morning. Spoke to her about goals of care. Reviewed with her clinical condition and her GI history, and now she is at the point of TPN. When I ask her what her hopes are. She states she hopes pain is controlled and that the TPN can help her gain back some wt. I told her she has been battling her GI condition for years , and I worried it will not get any better, and only get worse. I also review with her TPN is no way as good as good as being able to eat on your own, and in general life support is there to buy time, and not a replacement. Reviewed with her given her decline, have she ever considered hospice? She said no. She stated "Doc, I am a fighter. I survived strokes, [place], coma.... I want to continue to fight." I spoke to her about her renal cancer, in which she had a right nephrectomy. She states she is due for a PET scan. I asked why she had never followed up with her Renal Cancer all theses years? She said "I am just overwhelmed, and had not been feeling well." She state she want to establish with her new physician, and get back on track with renal cancer. Overall at this point in time, she is not amenable to transition to comfort measure only, and to continue to "fight." She decline to complete any advace directives. She also did not want me to discuss her hospitalization with her . When I ask why? She asked, because it is my decision, and I believe [facility] protects me for that. I say that is fine, I just wanted to make sure the hospital have someone to contact, should something like a stroke would happen again, in which she was in a coma. She did state she is okay with to make medical decisions should she be not capacitated to make medical decision. Function/Cognitive Trajectory Multiple hospitalization, has been losing wt, now on TPN. Review of Systems ROS Limitations: Clinical Condition Constitutional: COMPLAINS OF: Fatigue, Weight loss Endocrine: DENIES: Heat/cold intolerance, Polyuria Ears, nose, mouth, throat: DENIES: Throat pain, Ear Pain Gastrointestinal: COMPLAINS OF: Nausea, Vomiting, Anorexia Musculoskeletal: COMPLAINS OF: Back pain Psychiatric: COMPLAINS OF: Anxiety Past Family Social History Coded Allergies: Sulfa (Sulfonamide Antibiotics) (Unverified Allergy, Severe, Rash, 01/19/17 ) gadobenic acid (Unverified Allergy, Severe, Anaphylaxis, 01/19/17) gadodiamide (Unverified Allergy, Severe, Anaphylaxis, 01/19/17) gadoteridol (Unverified Allergy, Severe, Anaphylaxis, 01/19/17) ketorolac (Unverified Allergy, Severe, Shortness of Breath, 01/19/17) metoclopramide (Unverified Allergy, Severe, Shortness of Breath, 01/19/17) morphine (Unverified Allergy, Severe, Hives, 01/19/17) ondansetron (Unverified Allergy, Severe, Shortness of Breath, 01/19/17) penicillin G (Unverified Allergy, Severe, Rash, 01/19/17) prochlorperazine (Unverified Allergy, Severe, Shortness of Breath, 01/19/17 ) promethazine (Unverified Allergy, Severe, Shortness of Breath, 01/19/17) shellfish derived (Unverified Allergy, Severe, Anaphylaxis, 01/19/17) trimethobenzamide (Unverified Allergy, Severe, Shortness of Breath, ) Past Medical History Anxiety. History of kidney cancer, status post nephrectomy. History of [place] in 2005. History of tubal ligation in the past. Pancreatitis Chronic abd. pain with extensive GI work up Malnutrition Weight loss Anxiety Chronic opioid use. Gastroparesis Questionable seizures PFO which led to embolic strokes Past Surgical History Tubal ligation, appendectomy, cholecystectomy, previous EGD, colonoscopy, right nephrectomy, hernia repair, fundoplication Reported Medications Fentanyl patch, - she said previously her fentanyl patch was at 75mcg q 3days. Zoloft, Dulcolax, Ambien, Dilaudid, Valium, Bupirone Current Medications Medications (Trade) Dose Ordered Sig/Davin Route Start Time Stop Time Status Last Admin (D5-1/2 NS + KCl 20 Meq Inj) 1,000 ml @ 100 mls/hr Q10H IV 01/19/17 00:04 01/20/17 15:00 01/20/17 05:59 (NS Flush) 2 ml UNSCH PRN IV FLUSH 01/19/17 00:15 (NS Flush) 2 ml BID IV FLUSH 01/19/17 09:00 (Tylenol) 650 mg Q4H PRN PO 01/19/17 00:15 (Heparin Inj) 5,000 units Q12HR SQ 01/19/17 09:00 01/20/17 10:48 (Tylenol) 650 mg Q6H PRN PO 01/19/17 00:15 (Milk Of Magnsilvio Liq) 30 ml Q12H PRN PO 01/19/17 00:15 (Senokot) 17.2 mg Q12H PRN PO 01/19/17 00:15 (Dulcolax Supp) 10 mg DAILY PRN RECTAL 01/19/17 00:15 (Bentyl) 20 mg TID PRN PO 01/19/17 00:15 01/20/17 10:56 (Pepcid) 10 mg BID PO 01/19/17 09:00 01/20/17 10:47 (Transderm-Scop 1.5 Mg Patch.72 Hr) 1 patch Q72H PRN T-DERMAL 01/19/17 05:30 01/19/17 06:01 (Valium) 10 mg TID PO 01/19/17 13:00 01/20/17 10:44 (Duragesic 25 Mcg Patch.72 Hr) 25 patch Q72H T-DERMAL 01/19/17 10:00 01/19/17 10:40 (KCl) 10 meq DAILY PO 01/19/17 09:30 01/19/17 10:38 (Zoloft) 50 mg DAILY PO 01/19/17 09:30 01/20/17 10:48 (Ambien) 10 mg HS PRN PO 01/19/17 09:30 01/19/17 20:45 Miscellaneous Information 1 Q3D T-DERMAL 01/22/17 10:00 (Buspar) 30 mg BID PO 01/19/17 21:00 01/20/17 10:57 (NS Flush) See Protocol DAILY IV FLUSH 01/20/17 09:00 01/20/17 10:50 (NS Flush) See Protocol UNSCH PRN IV FLUSH 01/19/17 15:00 (Heparin Central Flush) See Protocol DAILY IV FLUSH 01/20/17 09:00 01/20/17 10:50 (Heparin Central Flush) See Protocol UNSCH PRN IV FLUSH 01/19/17 15:00 (NS Flush) UNSCH PRN IV FLUSH 01/19/17 15:00 Sucralfate 1 gm 1 gm TID PO 01/20/17 09:00 01/20/17 10:46 Multivitamins 10 ml/Folic Acid 1 mg/Amino Acids/ Electrolytes/ Dextrose 2,010.2 ml @ 45 mls/hr Q24H IV-CENTRAL 01/20/17 20:00 (Liposyn Iii 20% Inj) 250 ml @ 10 mls/hr Q24H IV-CENTRAL 01/20/17 20:00 Family History Numerous family members have cancer, such as lung cancer. None has kidney cancer Substance Use Tobacco:denies Alcohol:denies Prescription med abuse: she denies. "I don't get high from taking these medicines" Illicits:denies Psychosocial History 2nd marriage. to Edson Alcala. 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 Lived in [place] for 20 years. Only been in [place] for 1 year. Has one son from previous marriage, age 35. Did not give name. Living Will: Never completed Health Care Surrogate: Never completed Durable Power of Community Leader: Never completed Physical Exam Vital Signs Date Time Temp Pulse Resp B/P Pulse Ox O2 Delivery O2 Flow Rate FiO2 01/20/17 11:44 98.5 76 16 120/70 100 01/20/17 08:45 98.2 59 16 119/68 98 01/20/17 04:03 98.2 70 18 137/81 94 01/19/17 20:01 98.4 98 20 125/71 98 01/19/17 16:55 99.0 69 16 144/92 100 01/19/17 16:28 66 16 139/84 100 01/19/17 14:49 01/19/17 01/20/17 18:59 06:59 Intake Total 15 ml Balance 15 ml Intake Oral 15 ml Exam CONSTITUTIONAL/GENERAL: This is a thin middle age lady, lying in bed, does not appear to be in too much pain at the moment. SKIN: No jaundice, rashes, or lesions. Ecchymoses on upper extremities. No wounds seen anteriorly. Skin temperature appropriate. Not diaphoretic. HEAD: Atraumatic. Normocephalic. EYES:No scleral icterus. No injection or drainage. Fundi not examined. ENT: Hearing grossly normal. Nose without bleeding or purulent drainage. Throat without visible erythema, exudates, masses, or lesions. NECK: Trachea midline. Supple, nontender. No palpable thyroid enlargement or nodularity. CARDIOVASCULAR: Regular rate and rhythm without murmurs, gallops, or rubs. No JVD. Peripheral pulses symmetric. RESPIRATORY/CHEST: Symmetric, unlabored respirations. Clear to auscultation. Breath sounds equal bilaterally. No wheezes, rales, or rhonchi. GASTROINTESTINAL: Abdomen soft, some tenderness at epigastric region., nondistended. No hepato-splenomegaly, or palpable masses. No guarding. Bowel sounds present. GENITOURINARY: Without palpable bladder distension. Estrada catheter in place. MUSCULOSKELETAL: Extremities without clubbing, cyanosis, or edema. No joint tenderness or effusion noted. No calf tenderness. No mottling or clubbing. LYMPHATICS: No palpable cervical or supraclavicular adenopathy. NEUROLOGICAL: Awake and alert. Motor and sensory grossly within normal limits. Follows commands. Cognitively sharp. Moves all extremities. PSYCHIATRIC: No obvious anxiety/depression. no apparent hallucinations or other psychotic thought process. Diagnostic Tests Laboratory Laboratory Tests Test 01/18/17 01/19/17 19:30 12:05 White Blood Count 5.3 TH/MM3 4.2 TH/MM3 (4.0-11.0) (4.0-11.0) Red Blood Count 4.10 MIL/MM3 3.84 MIL/MM3 (4.00-5.30) (4.00-5.30) Hemoglobin 11.6 GM/DL 10.8 GM/DL (11.6-15.3) (11.6-15.3) Hematocrit 34.4 % 32.1 % (35.0-46.0) (35.0-46.0) Mean Corpuscular Volume 83.8 FL 83.6 FL (80.0-100.0) (80.0-100.0) Mean Corpuscular Hemoglobin 28.2 PG 28.1 PG (27.0-34.0) (27.0-34.0) Mean Corpuscular Hemoglobin 33.7 % 33.6 % Concent (32.0-36.0) (32.0-36.0) Red Cell Distribution Width 16.8 % 16.6 % (11.6-17.2) (11.6-17.2) Platelet Count 248 TH/MM3 211 TH/MM3 (150-450) (150-450) Mean Platelet Volume 9.7 FL 9.3 FL (7.0-11.0) (7.0-11.0) Neutrophils (%) (Auto) 57.7 % (16.0-70.0) Lymphocytes (%) (Auto) 30.2 % (9.0-44.0) Monocytes (%) (Auto) 12.0 % (0.0-8.0) Eosinophils (%) (Auto) 0.0 % (0.0-4.0) Basophils (%) (Auto) 0.1 % (0.0-2.0) Neutrophils # (Auto) 3.1 TH/MM3 (1.8-7.7) Lymphocytes # (Auto) 1.6 TH/MM3 (1.0-4.8) Monocytes # (Auto) 0.6 TH/MM3 (0-0.9) Eosinophils # (Auto) 0.0 TH/MM3 (0-0.4) Basophils # (Auto) 0.0 TH/MM3 (0-0.2) CBC Comment DIFF FINAL Differential Comment Sodium Level 136 MEQ/L 135 MEQ/L (136-145) (136-145) Potassium Level 2.9 MEQ/L 3.6 MEQ/L (3.5-5.1) (3.5-5.1) Chloride Level 100 MEQ/L 101 MEQ/L (98-107) (98-107) Carbon Dioxide Level 27.4 MEQ/L 26.3 MEQ/L (21.0-32.0) (21.0-32.0) Anion Gap 9 MEQ/L (5-15) 8 MEQ/L (5-15) Blood Urea Nitrogen 14 MG/DL (7-18) 12 MG/DL (7-18) Creatinine 0.69 MG/DL 0.61 MG/DL (0.50-1.00) (0.50-1.00) Estimat Glomerular Filtration 88 ML/MIN (>89) 101 ML/MIN Rate (>89) Random Glucose 108 MG/DL 109 MG/DL (74-106) (74-106) Calcium Level 9.1 MG/DL 8.7 MG/DL (8.5-10.1) (8.5-10.1) Phosphorus Level 2.7 MG/DL (2.5-4.9) Magnesium Level 2.2 MG/DL (1.5-2.5) Result Diagram: 01/19/17 1205 01/19/17 1205 Imaging Last Impressions Chest X-Ray 01/19/17 0000 Signed Impressions: Service Date/Time: Thursday, January 19, 2017 13:18 - CONCLUSION: 1. PICC in satisfactory position. Noble Chinchilla MD Abdomen/Pelvis CT 01/18/17 0000 Signed Impressions: Service Date/Time: Wednesday, January 18, 2017 21:13 - CONCLUSION: No acute abnormality. Previous nephrectomy on the right. Donato Li MD Patient/Family Conference Present at Family Conference: none. Decline for me to speak with . Family Conference Time (mins): 38 Family Conference Location: Bedside Issues Discussed: * Palliative care role, purpose, approach * Additional medical, psychosocial, and spiritual history * Patients general health, functional status, and cognitive changes in the months leading up to the current hospitalization * Patient/family understanding of the current medical problems * Patient/family understanding of prognosis * Patients goals of care as best understood from advance directives and/or conversations and/or values * Current medical treatment options and benefits/burdens of those options * Likely scenarios comparing ongoing aggressive care with a transition to comfort measures only * Questions answered to the best of my ability * Palliative care contact information provided Assessment and Plan Disease Oriented Problem List: (1) Malnourished (2) Gastroparesis (3) Hx of renal cell cancer (4) Chronic abdominal pain (5) Nausea and vomiting Symptom Scale: Pertinent Non-Medical Issues Psychosocial: Spiritual: Legal: Ethical issues impacting care: Important Contacts Edson Alcala [phone] Prognosis 56 year old with failure to thrive. She continues to lose wt, has chronic abdominal pain, continue to have nausea and vomiting. Guarded prognosis, and will continue to have multiple hospitalization. At risk for decompensation. Code Status: Full Code Plan == Capacity- pt able to elaborate her medical hx. She is A &O x 3 and is capacitated to make medical decision. == Health Care Proxy- per [place] statues would be pt's current . She declines designating health care surrogate, even though she had been intubated in the past. She declines me to speak with to have him involved in goals of care. Should she be incapcitated, she did say, it was okay for to make medical decisions then. == pain- mainly abdominal and multifactorial- has hx of multiple bowel surgery, and may have adhesions. There is a component of chronic pain and opiate tolerance. Review with pt the dilemma of putting someone on opiates, but at the same time causing gastroperesis. Brought up methadone, but currently she is not interested in that. Her main focus seem to be on Dilaudid, which she says she takes dilaudid 4 mg 5 x a day. May consider increasing Fentanyl to 50 mcg q 3 days. She endorse in the past she was on 75 mcg. If pain continue to be an issue, dilaudid 0.5 mg q 6 hours prn may be an option. Would encourage scheduling something like Senna S daily as pt is on chronic opiates. == goals of care.Spoke to her about goals of care. Reviewed with her clinical condition and her GI history, and now she is at the point of TPN. When I ask her what her hopes are. She states she hopes pain is controlled and that the TPN can help her gain back some wt. I told her she has been battling her GI condition for years, and I worried it will not get any better, and only get worse. I also review with her TPN is no way as good as good as being able to eat on your own, and in general life support is there to buy time, and not a replacement. Reviewed with her given her decline, have she ever considered hospice? She said no. She stated "Doc, I am a fighter. I survived strokes, [place], coma.... I want to continue to fight." I spoke to her about her renal cancer, in which she had a right nephrectomy. She states she is due for a PET scan. I asked why she had never followed up with her Renal Cancer all theses years? She said "I am just overwhelmed, and had not been feeling well." She state she want to establish with her new physician, and get back on track with renal cancer. Overall at this point in time, she is not amenable to transition to comfort measure only, and to continue to "fight." == Full code. == Palliative Care will continue to follow, goals appear to be established. Time Spent Total Floor Time (mins): 67 Face to Face Time (mins): 45 >50% Counseling/Coord of Care: Yes Thank you for the opportunity to participate in the care of Ms. Alcala. Attestation To help prompt me to consider important information that might be impacting today's encounter and assessment, information from prior notes written by myself or my colleagues may have been "brought forward" into today's note. My signature on this note, however, is an attestation that I personally performed the exam, history, and/or decision-making noted today, and, unless otherwise indicated, the interactions with patient, family, and staff as well as the review of records all occurred today. I also attest that the listed assessment and stated plan reflect my best clinical judgment today based on the combination of historical information, prior notes, and today's exam/ interactions. When time spent is documented, it refers only to time spent today by the signer, or if indicated, combined time spent today by collaborating physician/nurse practitioner. Stalin Lindsay MD Jan 20, 2017 14:31
[2017-01-20 16:24] LABS: BICARBONATE 22.5 MEQ/L (21.0-32.0); POTASSIUM 4.3 MEQ/L (3.5-5.1)
[2017-01-20 17:02] VITALS: BP 110/61; PULSE 65; RESP 16; TEMP 98.5; O2SAT 99
[2017-01-20] MEDS ORDERED: FAT EMULSION 20% INJ 250 ML (@10 mls/hr) IV-CENTRAL SCH (20:00)
[2017-01-20] MEDS ORDERED: CLINIMIX E 5/25 2000 mL- >42 mls/hr IV-CENTRAL SCH ×3 (20:00)
[2017-01-20 20:35] LABS: PROTHROMBIN TIME - PATIENT 11.4 SEC (9.8-11.6)
[2017-01-20 21:22] VITALS: BP 111/66; PULSE 76; RESP 16; TEMP 98.5; O2SAT 97
[2017-01-20] MEDS: ZOLPIDEM TARTRATE 10 MG TAB PO PRN (22:38)
[2017-01-21 01:55] VITALS: BP 107/69; PULSE 80; RESP 18; TEMP 97.4; O2SAT 97
[2017-01-21 05:09] VITALS: BP 110/67; PULSE 72; RESP 19; TEMP 98.6; O2SAT 100
[2017-01-21] MEDS: DICYCLOMINE HCL 20 MG TAB PO PRN (05:14)
--- NOTE | 2017-01-21 07:01 | HHI.GIFU ---
GI Follow-up Note Consult Follow-up Subjective: Patient had nausea with a regular diet. Abd pain under control. TPN started Objective: PHYSICAL EXAMINATION: Vitals signs stable No fever HEENT: no jaundice. Throat is clear. NECK: Neck is supple, no JVD, no lymphadenopathy. CHEST: Chest is clear to auscultation and percussion. CARDIAC: Regular rate and rhythm with no murmur gallop or rubs. ABDOMEN: Soft, nondistended, nontender; no hepatosplenomegaly; bowel sounds are present in all four quadrants. Scars noted EXTREMITIES: No edema. AUTOMOTIVE FLEET SUPERVISOR: alert and oriented times three. Available Data (labs, X- Rays, Procedues) : bx pending ASSESSMENT/PLAN: 1. chronic abd pain 2. Nausea 3. Weight loss PLAN: 1. Pt wants to continue her current diet despite nausea. She understands she only has a small gastric remnant and liquids are sometimes better tolerated. 2. once we can arrange home TPN she can be discharged to followup with Dr. Keen It was a pleasure seeing Gabrielle Alcala. Thank you for this consult. Entered by: Franklin Lara MD Jan 21, 2017 07:01
[2017-01-21 07:53] VITALS: BP 124/76; PULSE 71; RESP 16; TEMP 98.2; O2SAT 99
[2017-01-21] MEDS: POTASSIUM CHLORIDE 10 MEQ CAP PO SCH (09:00)
[2017-01-21] MEDS: SODIUM CHLORIDE 0.9% FLUSH 10 ML FLUSH IV FLUSH SCH ×2 (09:00)
--- NOTE | 2017-01-21 09:05 | HHI.PR ---
Subjective Remarks Patient is awake Resting in the bed Requesting more pain management for her chronic abdominal pain Afebrile (Latosha Murray) Objective Objective Results - Vital Signs Date Time Temp Pulse Resp B/P Pulse Ox O2 Delivery O2 Flow Rate FiO2 01/21/17 07:53 98.2 71 16 124/76 99 01/21/17 05:09 98.6 72 19 110/67 100 01/21/17 01:55 97.4 80 18 107/69 97 01/20/17 21:22 98.5 76 16 111/66 97 01/20/17 17:02 98.5 65 16 110/61 99 01/20/17 11:44 98.5 76 16 120/70 100 (Latosha Murray) Result Diagram: 01/19/17 1205 01/20/17 1440 ROS General: Fatigue, Weakness, Other (10 point ROS done positives noted) GI: Abdominal Pain (acute on chronic, 25 pound weight loss recent) Neuro/MS: Other (questionable understanding of the big picture, failure to thrive) (Latosha Murray) Physical Exam Physical Exam PHYSICAL EXAMINATION GENERAL: This is a thin, cathartic female who appears to be in no acute distress. She is awake HEAD: Normocephalic Facial features appear symmetric., Thin sunken orbital was OROPHARYNGEAL: Oropharynx dry NECK: Supple thin Trachea midline without deviation. CARDIAC: Regular rhythm, regular rate, S1 and S2 are heard LUNGS: Clear to auscultation bilaterally. Volumes low to mid, no cough ABDOMEN: Flat, no organomegaly or masses. Bowel sounds minimal soft EXTREMITIES: no edema. Extremities warm NEUROLOGICAL: Patient mood and affect flat SKIN:Warm and dry (Latosha Murray) A/P Assessment and Plan (1) Chronic abdominal pain (2) Nausea & vomiting (3) Gastroparesis (4) GERD (gastroesophageal reflux disease) (5) Recurrent abdominal pain (6) Hypokalemia (7) Chronic narcotic dependence (8) hx right nephrectomy (9) Hx of renal cell cancer (10) Hx of hiatal hernia (11) History of fundoplication (12) History of gastrectomy (13) History of CVA (cerebrovascular accident) (14) Malnourished Vital signs reviewed trends are normal patient's afebrile Vital signs reviewed anemia stable at 10.8 Bowel regimen no BM in 2 days but patient has had minimal appetite and 25 pound weight weight loss, will continue to monitor Patient states abdominal pain is more controlled, acute on chronic, patient has IV TPN and lipids, states she is hoping to go home on these. States she is hoping to gain her 25 pounds back she has lost but gives no plan how to accomplish. GI consult, noted patient would tolerate liquids better than regular food, but patient requested to continue having a regular diet. Palliative care consult for possible failure to thrive, along with chronic illness, discussed briefly with patient her wishes, but appears to be rather vague and distant. Encourage visits and supportive care from the palliative care team. 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 Is requesting more meds . Reassured her that this would be discussed with Dr. Jo, DVT PPI prophylaxis We'll monitor any nutrition as well as activity, and pain management needs per Dr. Jo Discharge planning dependent on patient's wishes and palliative care team input , probable within the next day or 2 Discussed with patient Discussed with nurse Is cusp with Dr. Jo, seen on his behalf (Latosha Murray) Assessment and Plan seen, examined by myself, Dr Jo, today Discussed with patient Discussed with Nurse Discussed with Waste Reduction Coordinator She Was Informed That Her Life Expectancy Is Likely Shortened If She Continues with Consumption of Narcotics Discharge home on TPN Follow-up with primary care physician, follow-up with GI Discussed with mid level provider The exam, history, and the medical decision-making described in the above note were completed with the assistance of the mid-level provider. I reviewed the findings presented. I attest that I had a [id number] encounter with the patient on the same day, and personally performed and documented my assessment and findings in the medical record. (Carmen Jo MD) Latosha Murray Jan 21, 2017 09:05 Carmen Jo MD Jan 21, 2017 18:52
[2017-01-21] MEDS: busPIRone HCL 5 MG TAB PO SCH (09:09)
[2017-01-21] MEDS: SERTRALINE HCL 50 MG TAB PO SCH (09:09)
[2017-01-21] MEDS: DIAZEPAM 10 MG TAB PO SCH ×2 (09:09→13:04)
[2017-01-21] MEDS: HEPARIN SODIUM - SQ 10,000 UNITS/ML VIAL SQ SCH (09:10)
[2017-01-21] MEDS: FAMOTIDINE 20 MG TAB PO SCH (09:10)
[2017-01-21] MEDS: SUCRALFATE 1 GM/10 ML CUP PO SCH ×2 (09:25→13:04)
[2017-01-21 11:26] VITALS: BP 126/78; PULSE 78; RESP 16; TEMP 98.2; O2SAT 98
--- NOTE | 2017-01-21 17:18 | HHI.DS ---
Discharge Summary Admission Date Jan 18, 2017 at 22:59 Discharge Date: Jan 21, 2017 Admitting Diagnosis Acute on chronic abdominal pain (1) Chronic abdominal pain Diagnosis: Secondary (acute on chronic) (2) Nausea & vomiting Diagnosis: Principal (3) Gastroparesis Diagnosis: Secondary (4) GERD (gastroesophageal reflux disease) Diagnosis: Secondary (5) Recurrent abdominal pain Diagnosis: Principal (6) Hypokalemia Diagnosis: Principal (7) Chronic narcotic dependence Diagnosis: Secondary (8) hx right nephrectomy Diagnosis: Secondary (9) Hx of renal cell cancer Diagnosis: Secondary (10) Hx of hiatal hernia Diagnosis: Secondary (11) History of fundoplication Diagnosis: Secondary (12) History of gastrectomy Diagnosis: Secondary (13) History of CVA (cerebrovascular accident) Diagnosis: Secondary (14) Malnourished Diagnosis: Secondary Brief History This was a 56-year-old female with significant past medical history of chronic abdominal pain with extensive GI workup, gastroparesis, previous pancreatitis, chronic opioid use, CAD, history of kidney cancer post-nephrectomy, history of embolic strokes, anxiety. Patient had multiple admissions and ER visits. She was last admitted under our services 01/08-01/09 for the same. Patient had recently established herself with new asset accountant, Dr. Churchill. She was sent to see him on Wednesday and he was concerned that she continues to lose weight and is not getting enough nutrition. She had visited the emergency room several times in the last couple days. She again presented yesterday at the request of Dr. Churchill because of her ongoing weight loss and inability to eat as well as the need for a CTA and a PICC line. Patient indicated that she has dry heaves, she's not able to vomit however she was able to produce bile color gastric emesis. She had only been able to eat very small amounts of liquids. She does have loose stools. No blood in the stool, no blood in the emesis. She complains of diffuse abdominal pain that was controlled with oral Dilaudid. She had multiple allergies to antiemetics and the only thing that works was benzodiazepines. CBC/BMP: 01/19/17 1205 01/20/17 1440 Significant Findings Laboratory Tests Test 01/18/17 01/19/17 01/20/17 01/20/17 19:30 12:05 14:40 20:01 Hematocrit 34.4 % 32.1 % (35.0-46.0) (35.0-46.0) Monocytes (%) (Auto) 12.0 % (0.0-8.0) Potassium Level 2.9 MEQ/L (3.5-5.1) Estimat Glomerular Filtration 88 ML/MIN (>89) Rate Random Glucose 108 MG/DL 109 MG/DL 63 MG/DL (74-106) (74-106) (74-106) Red Blood Count 3.84 MIL/MM3 (4.00-5.30) Hemoglobin 10.8 GM/DL (11.6-15.3) Sodium Level 135 MEQ/L (136-145) Calcium Level 8.1 MG/DL (8.5-10.1) Activated Partial 37.0 SEC Thromboplast Time (24.3-30.1) Imaging Last Impressions Chest X-Ray 01/19/17 0000 Signed Impressions: Service Date/Time: Thursday, January 19, 2017 13:18 - CONCLUSION: 1. PICC in satisfactory position. Noble Chinchilla MD Abdomen/Pelvis CT 01/18/17 0000 Signed Impressions: Service Date/Time: Wednesday, January 18, 2017 21:13 - CONCLUSION: No acute abnormality. Previous nephrectomy on the right. Donato Li MD PE at Discharge GENERAL: This is a thin, cathartic female who appears to be in no acute distress. She is awake HEAD: Normocephalic Facial features appear symmetric., Thin sunken orbital was OROPHARYNGEAL: Oropharynx dry NECK: Supple thin Trachea midline without deviation. CARDIAC: Regular rhythm, regular rate, S1 and S2 are heard LUNGS: Clear to auscultation bilaterally. Volumes low to mid, no cough ABDOMEN: Flat, no organomegaly or masses. Bowel sounds minimal soft EXTREMITIES: no edema. Extremities warm NEUROLOGICAL: Patient mood and affect flat SKIN:Warm and dry Hospital Course Patient was evaluated in the emergency room, laboratory workup was significant for hypokalemia, potassium 2.9. CT of the abdomen and pelvis was completed which did not reveal any significant findings. Complaining of pain, she was still nauseous. She was very concerned about her Dilaudid and whether she will go through withdrawals if she doesn't continue to take them here. Laboratory workup currently standing. Patient was admitted for further evaluation and treatment. These are the diagnoses that were used to treat this patient during this brief hospital stay (1) Chronic abdominal pain (2) Nausea & vomiting (3) Gastroparesis (4) GERD (gastroesophageal reflux disease) (5) Recurrent abdominal pain (6) Hypokalemia (7) Chronic narcotic dependence (8) hx right nephrectomy (9) Hx of renal cell cancer (10) Hx of hiatal hernia (11) History of fundoplication (12) History of gastrectomy (13) History of CVA (cerebrovascular accident) (14) Malnourished Vital signs reviewed and monitored every 4 hours and when necessary if warranted .trends are normal patient's afebrile Vital signs reviewed anemia stable at 10.8, which is chronic secondary to her chronic disease Bowel regimen monitored and treated with bowel regimen of stool softeners and or laxatives if warranted Patient states abdominal pain is more controlled, acute on chronic, patient has IV TPN and lipids, states she is hoping to go home on these. States she is hoping to gain her 25 pounds back she has lost but gives no plan how to accomplish. GI consult, noted patient would tolerate liquids better than regular food, but patient requested to continue having a regular diet. Palliative care consult for possible failure to thrive, along with chronic illness, discussed briefly with patient her wishes, but appears to be rather vague and distant. Patient continues to be full code full aggressive care per her wishes. 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 Pain management, patient is concerned that she is not getting all the pain management that she was at home. Is requesting more meds . Discussed with Dr. Jo, medical management for her pain while in the hospital DVT PPI prophylaxis throughout hospital stay We'll monitor any nutrition as well as activity, and pain management needs per Dr. Jo Discharge planning initiated today per Dr. Jo due to the patient's stable and chronic medical needs. Plan is to send her home with TPN which will have to be weaned to a 12 hour treatment regimen per the patient's request. Case management involved in discharge planning and appreciate input Plan of care was discussed with medical team, nursing staff, case management throughout the course of her treatment She was stable upon discharge at 5 PM with . Pt Condition on Discharge: Stable Discharge Disposition: Disch w/ Home Health Serv Discharge Instructions DIET: Follow Instructions for: Heart Healthy Diet Additional Diet Instructions: Use very small fat-free frequent meals, Activities you can perform: Regular-No Restrictions Follow up Referrals: Gastroenterology with Bradley Keen MD PCP Follow-up Continued Medications: Buspirone (Buspirone) 7.5 Mg Tab 30 MG PO TID Anxiety Ref 0 TAB Aclxjgvpkj-Rfzzssvmzedaw-Qxfxjtrs (Fioricet) 50-300-40 Mg Cap 1-2 CAP PO Q6H PRN HEADACHE Ref 0 CAP Calcium Citrate-Vitamin D (Calcitrate) 315-250 Mg-Unit Tab 1 TAB PO QID Calcium Supplement Ref 0 TAB Cholecalciferol (Vitamin D-1000) 1,000 Unit Tab 1000 UNITS PO DAILY Nutritional Supplement #1 Ref 0 BOTTLE Cyanocobalamin Inj (Cyanocobalamin Inj) 1,000 Mcg/Ml Inj 1000 MCG IM Q30D #1 Ref 0 VIAL Diazepam (Valium) 10 Mg Tab 10 MG PO TID Nausea/Vomiting Ref 0 TAB Dicyclomine (Dicyclomine) 20 Mg Tab 40 MG PO TID Bowel Management #90 Ref 0 TAB Docusate Sodium (Dulcolax Stool Softener) 100 Mg Cap 100 MG PO HS Constipation #60 Ref 0 CAP Magnesium Oxide (Magnesium Oxide) 400 Mg Tab 400 MG PO BID Nutritional Supplement Ref 0 TAB Potassium Chloride ER (Potassium Chloride ER) 10 Meq Cap 10 MEQ PO DAILY Electrolyte Replacement #7 Ref 0 CAP Sertraline (Zoloft) 50 Mg Tab 50 MG PO DAILY #30 Ref 0 TAB Sumatriptan (Sumatriptan) 100 Mg Tab 100 MG PO ONCE If a satisfactory response has not been obtained at 2 hours, a second dose may be administered PRN MIGRAINE HEADACHE Ref 0 TAB Thiamine Inj (Thiamine Inj) 100 Mg/Ml Inj 100 MG IM WEEKLY VIAL Vitamin E Mixed (Vitamin E) 400 Unit Tablet 1 TAB PO DAILY Zolpidem (Ambien) 10 Mg Tab 10 MG PO HS PRN INSOMNIA Ref 0 TAB Discontinued Medications: Fentanyl Patch 72 HR (Fentanyl Patch 72 HR) 25 Mcg/Hr Patch 25 MCG T-DERMAL Q72H Pain Management #10 Ref 0 PATCH Hydromorphone (Dilaudid) 4 Mg Tab 6 MG PO 5 TIMES A DAY PRN Pain Management Ref 0 TAB Latosha Murray Jan 21, 2017 17:18
[2017-01-22] MEDS ORDERED: REMOVE OLD DURAGESIC (FENTANYL) PATCH T-DERMAL SCH (10:00)
== END 2017-01-21 19:02 | disposition home or self-care (01) ==
LOC: NEPE 17:19 → NEDA 22:59 → NEPGCP 01-19 01:38
PROVIDERS: ADMIT Specialist; ATTEND Specialist
DX: K31.84 Gastroparesis (principal); R10.13 Epigastric pain; G89.29 Other chronic pain; E87.6 Hypokalemia; R11.2 Nausea with vomiting, unspecified; K21.9 Gastro-esophageal reflux disease without esophagitis; F41.9 Anxiety disorder, unspecified; E43 Unspecified severe protein-calorie malnutrition; I25.2 Old myocardial infarction; D63.8 Anemia in other chronic diseases classified elsewhere; I25.10 Atherosclerotic heart disease of native coronary artery without angina pectoris; Z86.73 Personal history of transient ischemic attack (TIA), and cerebral infarction without residual deficits; Z79.891 Long term (current) use of opiate analgesic; Z87.11 Personal history of peptic ulcer disease; Z85.528 Personal history of other malignant neoplasm of kidney
CPT/HCPCS: 00740; 36569; 43239; 71010; 74174; 76937; 80048; 83735; 84100; 85025; 85027; 85610; 85730; 88305; 88312; 96365; 96366; 96372; 96375; 99285; G0378; J0500; J1170; J1642; J1644; J2250; J3480; J7040; Q9967

== ENCOUNTER 2017-02-02 18:07 | Emergency (ER) | payer BC, OTHER ==
[~2017-02-02] VITALS: Ht 157.5 cm; Wt 40.0 kg
[~2017-02-02 18:07] MED LIST changes: +BUTA1CAP PO; +CALCTAB8 PO; +DICY20TA10 PO; -DILA4TAB2 PO; -FENT25DI T-DERMAL; +MAGN400T2 PO; +SUMA100T2 PO; +THIA200P IM; +VITA1000 PO; +VITA400T20 PO
--- NOTE | 2017-02-02 19:07 | PD ---
HPI Time Seen by Provider: 19:07 History of Present Illness HPI 56 YO F presents to the ED for evaluation of PFSH Past Medical History Hx Anticoagulant Therapy: No Asthma: No Blood Disorders: No Anxiety: Yes Depression: No Heart Rhythm Problems: No Cancer: Yes (KIDNEY ) Cardiovascular Problems: Yes High Cholesterol: No Chemotherapy: No Chest Pain: No Congestive Heart Failure: No COPD: No Cerebrovascular Accident: Yes Diabetes: No Diminished Hearing: No Endocrine: No Gastrointestinal Disorders: Yes GERD: No Genitourinary: Yes (OCCASSIONAL UTI) Headaches: Yes Hiatal Hernia: Yes Hypertension: No Immune Disorder: No Implanted Vascular Access Dvce: No Kidney Stones: No Musculoskeletal: No Neurologic: Yes (CVA 2004) Psychiatric: No Reproductive: No Respiratory: No Immunizations Current: Yes Migraines: Yes Myocardial Infarction: Yes (2004) Pneumonia: Yes Radiation Therapy: No Renal Failure: No Seizures: Yes Sleep Apnea: No Thyroid Disease: No Ulcer: No Menopausal: Yes : 1 Para: 1 Miscarriage: 0 : 0 Ectopic : No Ovarian Cysts: No Tubal Ligation: Yes Past Surgical History Abdominal Surgery: Yes (total gastrectomy w/pouch 2002, hernia repair) Appendectomy: Yes Cardiac Surgery: Yes (REPAIRED HOLE IN HEART) Cholecystectomy: Yes Genitourinary Surgery: Yes (RIGHT NEPHRECTOMY) Hysterectomy: No Thoracic Surgery: No Tonsillectomy: Yes Other Surgery: Yes Social History Alcohol Use: No Tobacco Use: No Substance Use: No Allergies-Medications (Allergen,Severity, Reaction): Coded Allergies: Sulfa (Sulfonamide Antibiotics) (Unverified Allergy, Severe, Rash, 01/19/17 ) gadobenic acid (Unverified Allergy, Severe, Anaphylaxis, 01/19/17) gadodiamide (Unverified Allergy, Severe, Anaphylaxis, 01/19/17) gadoteridol (Unverified Allergy, Severe, Anaphylaxis, 01/19/17) ketorolac (Unverified Allergy, Severe, Shortness of Breath, 01/19/17) metoclopramide (Unverified Allergy, Severe, Shortness of Breath, 01/19/17) morphine (Unverified Allergy, Severe, Hives, 01/19/17) ondansetron (Unverified Allergy, Severe, Shortness of Breath, 01/19/17) penicillin G (Unverified Allergy, Severe, Rash, 01/19/17) prochlorperazine (Unverified Allergy, Severe, Shortness of Breath, 01/19/17 ) promethazine (Unverified Allergy, Severe, Shortness of Breath, 01/19/17) shellfish derived (Unverified Allergy, Severe, Anaphylaxis, 01/19/17) trimethobenzamide (Unverified Allergy, Severe, Shortness of Breath, ) Reported Meds & Prescriptions Reported Meds & Active Scripts Active Potassium Chloride ER (Potassium Chloride) 10 Meq Cap 10 Meq PO DAILY Reported Vitamin E (Vitamin E Mixed) 400 Unit Tablet 1 Tab PO DAILY Thiamine Inj (Thiamine HCl) 100 Mg/Ml Inj 100 Mg IM WEEKLY Vitamin D-1000 (Cholecalciferol) 1,000 Unit Tab 1,000 Units PO DAILY Magnesium Oxide 400 Mg Tab 400 Mg PO BID Calcitrate (Calcium Citrate-Vitamin D) 315-250 Mg-Unit Tab 1 Tab PO QID Dicyclomine (Dicyclomine HCl) 20 Mg Tab 40 Mg PO TID Fioricet (Rkynlykseb-Ivkztyqpawjnz-Abtdpcqq) 50-300-40 Mg Cap 1-2 Cap PO Q6H PRN Sumatriptan (Sumatriptan Succinate) 100 Mg Tab 100 Mg PO ONCE PRN If a satisfactory response has not been obtained at 2 hours, a second dose may be administered Zoloft (Sertraline HCl) 50 Mg Tab 50 Mg PO DAILY Dulcolax Stool Softener (Docusate Sodium) 100 Mg Cap 100 Mg PO HS Ambien (Zolpidem Tartrate) 10 Mg Tab 10 Mg PO HS PRN Valium (Diazepam) 10 Mg Tab 10 Mg PO TID Buspirone (Buspirone HCl) 7.5 Mg Tab 30 Mg PO TID Cyanocobalamin Inj (Cyanocobalamin) 1,000 Mcg/Ml Inj 1,000 Mcg IM Q30D Data Data Orders Orders Complete Blood Count With Diff (02/02/17 19:17) Basic Metabolic Panel (Bmp) (02/02/17 19:17) Urinalysis - C+S If Indicated (02/02/17 19:17) Electrocardiogram (02/02/17 19:17) Psych Screen (02/02/17 19:17) Drug Screen, Random Urine (02/02/17 19:17) Alcohol (Ethanol) (02/02/17 19:17) Nany Roberson Feb 02, 2017 19:07
--- NOTE | 2017-02-02 19:45 | PD ---
HPI Chief Complaint: Mccurdy act Time Seen by Provider: 19:38 Travel History International Travel<30 days: No Contact w/Intl Traveler<30days: No Traveled to known affect area: No History of Present Illness HPI 56-year-old female with history of abdominal pain, gastroparesis, gastrectomy, on TPN, presents to the emergency department for evaluation under a Mccurdy act. Patient states that her has been being rested with her over the last week or so. She told him today that she cannot take it anymore. She told him to get out. When he returned he allegedly returned with the police at which time she was placed under Mccurdy act. Patient denies suicidal or homicidal ideations. No other symptoms to report this time. PFSH Past Medical History Hx Anticoagulant Therapy: No Asthma: No Blood Disorders: No Anxiety: Yes Depression: No Heart Rhythm Problems: No Cancer: Yes (KIDNEY ) Cardiovascular Problems: Yes High Cholesterol: No Chemotherapy: No Chest Pain: No Congestive Heart Failure: No COPD: No Cerebrovascular Accident: Yes Diabetes: No Diminished Hearing: No Endocrine: No Gastrointestinal Disorders: Yes GERD: No Genitourinary: Yes (OCCASSIONAL UTI) Headaches: Yes Hiatal Hernia: Yes Hypertension: No Immune Disorder: No Implanted Vascular Access Dvce: No Kidney Stones: No Musculoskeletal: No Neurologic: Yes (CVA 2004) Psychiatric: No Reproductive: No Respiratory: No Immunizations Current: Yes Migraines: Yes Myocardial Infarction: Yes (2004) Pneumonia: Yes Radiation Therapy: No Renal Failure: No Seizures: Yes Sleep Apnea: No Thyroid Disease: No Ulcer: No Menopausal: Yes : 1 Para: 1 Miscarriage: 0 : 0 Ectopic : No Ovarian Cysts: No Tubal Ligation: Yes Past Surgical History Abdominal Surgery: Yes (total gastrectomy w/pouch 2002, hernia repair) Appendectomy: Yes Cardiac Surgery: Yes (REPAIRED HOLE IN HEART) Cholecystectomy: Yes Genitourinary Surgery: Yes (RIGHT NEPHRECTOMY) Hysterectomy: No Thoracic Surgery: No Tonsillectomy: Yes Other Surgery: Yes Social History Alcohol Use: No Tobacco Use: No Substance Use: No Allergies-Medications (Allergen,Severity, Reaction): Coded Allergies: Sulfa (Sulfonamide Antibiotics) (Unverified Allergy, Severe, Rash, 01/19/17 ) gadobenic acid (Unverified Allergy, Severe, Anaphylaxis, 01/19/17) gadodiamide (Unverified Allergy, Severe, Anaphylaxis, 01/19/17) gadoteridol (Unverified Allergy, Severe, Anaphylaxis, 01/19/17) ketorolac (Unverified Allergy, Severe, Shortness of Breath, 01/19/17) metoclopramide (Unverified Allergy, Severe, Shortness of Breath, 01/19/17) morphine (Unverified Allergy, Severe, Hives, 01/19/17) ondansetron (Unverified Allergy, Severe, Shortness of Breath, 01/19/17) penicillin G (Unverified Allergy, Severe, Rash, 01/19/17) prochlorperazine (Unverified Allergy, Severe, Shortness of Breath, 01/19/17 ) promethazine (Unverified Allergy, Severe, Shortness of Breath, 01/19/17) shellfish derived (Unverified Allergy, Severe, Anaphylaxis, 01/19/17) trimethobenzamide (Unverified Allergy, Severe, Shortness of Breath, ) Reported Meds & Prescriptions Reported Meds & Active Scripts Active Potassium Chloride ER (Potassium Chloride) 10 Meq Cap 10 Meq PO DAILY Reported Vitamin E (Vitamin E Mixed) 400 Unit Tablet 1 Tab PO DAILY Thiamine Inj (Thiamine HCl) 100 Mg/Ml Inj 100 Mg IM WEEKLY Vitamin D-1000 (Cholecalciferol) 1,000 Unit Tab 1,000 Units PO DAILY Magnesium Oxide 400 Mg Tab 400 Mg PO BID Calcitrate (Calcium Citrate-Vitamin D) 315-250 Mg-Unit Tab 1 Tab PO QID Dicyclomine (Dicyclomine HCl) 20 Mg Tab 40 Mg PO TID Fioricet (Vafsxhkaxz-Wcujtjeiqokeq-Fiywpqtc) 50-300-40 Mg Cap 1-2 Cap PO Q6H PRN Sumatriptan (Sumatriptan Succinate) 100 Mg Tab 100 Mg PO ONCE PRN If a satisfactory response has not been obtained at 2 hours, a second dose may be administered Zoloft (Sertraline HCl) 50 Mg Tab 50 Mg PO DAILY Dulcolax Stool Softener (Docusate Sodium) 100 Mg Cap 100 Mg PO HS Ambien (Zolpidem Tartrate) 10 Mg Tab 10 Mg PO HS PRN Valium (Diazepam) 10 Mg Tab 10 Mg PO TID Buspirone (Buspirone HCl) 7.5 Mg Tab 30 Mg PO TID Cyanocobalamin Inj (Cyanocobalamin) 1,000 Mcg/Ml Inj 1,000 Mcg IM Q30D Review of Systems Except as stated in HPI: all other systems reviewed are Neg Physical Exam Narrative GENERAL: Thin female patient, lying in bed in no acute distress SKIN: Focused skin assessment warm/dry. HEAD: Normocephalic. EYES: No scleral icterus. No injection or drainage. NECK: Supple, trachea midline. No JVD or lymphadenopathy. CARDIOVASCULAR: Regular rate and rhythm without murmurs, gallops, or rubs. RESPIRATORY: Breath sounds equal bilaterally. No accessory muscle use. GASTROINTESTINAL: Abdomen soft, non-tender, nondistended. MUSCULOSKELETAL: No cyanosis, or edema. BACK: Nontender without obvious deformity. No CVA tenderness. Data Data Orders Orders Complete Blood Count With Diff (02/02/17 19:17) Basic Metabolic Panel (Bmp) (02/02/17 19:17) Urinalysis - C+S If Indicated (02/02/17 19:17) Electrocardiogram (02/02/17 19:17) Psych Screen (02/02/17 19:17) Drug Screen, Random Urine (02/02/17 19:17) Alcohol (Ethanol) (02/02/17 19:17) MDM Medical Decision Making Medical Screen Exam Complete: Yes Emergency Medical Condition: Yes Medical Record Reviewed: Yes Differential Diagnosis Mood disorder versus personality disorder versus adjustment reaction disorder Narrative Course 56-year-old female presents to the emergency department for evaluation under Mccurdy act. Patient appears without distress. She denies suicidal homicidal ideations. Pending no acute lab abnormality, patient is medically cleared to undergo psychiatric screening for further evaluation and disposition. Mental health screening discussed with the patient. Psychiatric screen ordered. Diagnosis Primary Impression: Adjustment reaction Qualified Codes: F43.23 - Adjustment disorder with mixed anxiety and depressed mood Condition: Stable Lisste Jeong Feb 02, 2017 19:45
[2017-02-02 21:05] VITALS: BP 120/73; PULSE 74; RESP 15; TEMP 98; O2SAT 97
[2017-02-02 21:11] VITALS: BP 120/75; PULSE 68; RESP 18; O2SAT 98
[2017-02-02 21:42] LABS: BLOOD, URINE TRACE (NEG); COMMENT (UR) CULTURE INDICATED; CULTURE IF INDICATED CULTURE INDICATED; GLUCOSE,URINE NEG (NEG); KETONE, URINE NEG (NEG); NITRITE,URINE POS (NEG); SQUAMOUS EPITHELIAL CELL URINE 1 /hpf (0-5); URINE COLOR YELLOW (YELLW/STRAW)
[2017-02-02 21:43] LABS: BACTERIA, URINE MANY /hpf
[2017-02-02] MEDS ORDERED: NITROFURANTOIN MONOHYD MACROCR 100 MG CAP PO ONE (23:15)
[2017-02-03 00:21] LABS: AUTOMATED NEUTROPHIL # 1.7 TH/MM3 (1.8-7.7); BASOPHIL % 0.3 % (0.0-2.0); EOSINOPHIL # 0.1 TH/MM3 (0-0.4); EOSINOPHIL % 1.7 % (0.0-4.0); HEMATOCRIT 25.8 % (35.0-46.0); HEMO FLAGS DIFF FINAL; LYMPH % 41.7 % (9.0-44.0); LYMPHOCYTE # 1.6 TH/MM3 (1.0-4.8); MEAN CORPUSCULAR HEMOGLOBIN 27.7 PG (27.0-34.0); MEAN CORPUSCULAR HGB CONC 32.6 % (32.0-36.0); MONO % 10.4 % (0.0-8.0); NEUT % 45.9 % (16.0-70.0); PLATELET COUNT 125 TH/MM3 (150-450); RED BLOOD COUNT 3.03 MIL/MM3 (4.00-5.30); RED CELL DISTRIBUTION WIDTH 16.4 % (11.6-17.2); WHITE BLOOD COUNT 3.7 TH/MM3 (4.0-11.0)
[2017-02-03 00:34] LABS: ANION GAP 7 MEQ/L (5-15); BICARBONATE 27.4 MEQ/L (21.0-32.0); BLOOD UREA NITROGEN 23 MG/DL (7-18); CHLORIDE 107 MEQ/L (98-107); GLOMERULAR FILTRATION RATE 85 ML/MIN (>89); POTASSIUM 4.3 MEQ/L (3.5-5.1); SODIUM (NA) 141 MEQ/L (136-145)
[2017-02-03 00:35] LABS: ALCOHOL LESS THAN 3 MG/DL (0-5)
[2017-02-03] MEDS ORDERED: ZOLPIDEM TARTRATE 10 MG TAB PO ONE (00:45)
[2017-02-03] MEDS ORDERED: MACR100C2 PO ×2 (01:04→15:23)
--- NOTE | 2017-02-03 01:04 | PD ---
Physical Exam Narrative I, Dr. Campbell, have reviewed the advance practice practitioner's documentation and am in agreement, met with the patient face to face, made the diagnosis, and the medical decision making was done by me. *My assessment and Findings: Aggressive behavior 56yo F with gastroparesis, gastrectomy on TPN here under Mccurdy Act. I received sign out to follow up labs and medically clear patient. Pt is manipulative and demanding medications. I did agree to give her her usual 10mg of ambien. Abdomen is soft, NT/ND. Labs reviewed, mild leukopenia at 3.7. H/H mildly decreased from baseline at 8.4/25.8. Normal MCV. Mild thrombocytopenia. Normal potassium at 4.3. UA showed positive nitrite. Pt given first dose of macrobid. Vital signs are normal with no fever or tachycardia. Glucose is 76. Pt wants to hang her TPN but we called pharmacy and they said that there is no one to make her TPN right now but we can start her on a D10 drip. I ordered a D10W at 42cc/hr. Repeat blood glucose is 80. Pharmacy will be able to make her TPN in morning if needed and pt is admitted. D10 drip stopped at 7am. Pt is medically clear for psych evaluation. Pt given first dose of macrobid and prescribed antibiotics for UTI. Data Data Last Documented VS Vital Signs Date Time Temp Pulse Resp B/P (MAP) Pulse Ox O2 Delivery O2 Flow Rate FiO2 02/03/17 16:06 02/03/17 07:30 66 18 98 Room Air 02/02/17 21:05 98.0 Orders Orders Complete Blood Count With Diff (02/02/17 19:17) Basic Metabolic Panel (Bmp) (02/02/17 19:17) Urinalysis - C+S If Indicated (02/02/17 19:17) Psych Screen (02/02/17 19:17) Drug Screen, Random Urine (02/02/17 19:17) Alcohol (Ethanol) (02/02/17 19:17) Urine Culture (02/02/17 21:26) Nitrofurantoin Monohyd Macrocr (Macrobid (02/02/17 23:15) Zolpidem (Ambien) (02/03/17 00:45) Dextrose 10% Inj (D10w Inj) (02/03/17 01:15) Blood Glucose (02/03/17 02:00) Labs Laboratory Tests Test 02/02/17 21:26 02/03/17 00:00 Urine Color YELLOW Urine Turbidity HAZY Urine pH 6.0 Urine Specific [place] 1.023 Urine Protein NEG mg/dL Urine Glucose (UA) NEG mg/dL Urine Ketones NEG mg/dL Urine Occult Blood TRACE Urine Nitrite POS Urine Bilirubin NEG Urine Urobilinogen LESS THAN 2.0 MG/DL Urine Leukocyte Esterase MOD Urine RBC LESS THAN 1 /hpf Urine WBC 4 /hpf Urine Squamous Epithelial Cells 1 /hpf Urine Amorphous Sediment RARE Urine Bacteria MANY /hpf Microscopic Urinalysis Comment CULTURE INDICATED Urine Opiates Screen NEG Urine Barbiturates Screen POS Urine Amphetamines Screen NEG Urine Benzodiazepines Screen POS Urine Cocaine Screen NEG Urine Cannabinoids Screen NEG White Blood Count 3.7 TH/MM3 Red Blood Count 3.03 MIL/MM3 Hemoglobin 8.4 GM/DL Hematocrit 25.8 % Mean Corpuscular Volume 85.0 FL Mean Corpuscular Hemoglobin 27.7 PG Mean Corpuscular Hemoglobin Concent 32.6 % Red Cell Distribution Width 16.4 % Platelet Count 125 TH/MM3 Mean Platelet Volume 10.2 FL Neutrophils (%) (Auto) 45.9 % Lymphocytes (%) (Auto) 41.7 % Monocytes (%) (Auto) 10.4 % Eosinophils (%) (Auto) 1.7 % Basophils (%) (Auto) 0.3 % Neutrophils # (Auto) 1.7 TH/MM3 Lymphocytes # (Auto) 1.6 TH/MM3 Monocytes # (Auto) 0.4 TH/MM3 Eosinophils # (Auto) 0.1 TH/MM3 Basophils # (Auto) 0.0 TH/MM3 CBC Comment DIFF FINAL Differential Comment Blood Urea Nitrogen 23 MG/DL Creatinine 0.71 MG/DL Random Glucose 76 MG/DL Calcium Level 8.3 MG/DL Sodium Level 141 MEQ/L Potassium Level 4.3 MEQ/L Chloride Level 107 MEQ/L Carbon Dioxide Level 27.4 MEQ/L Anion Gap 7 MEQ/L Estimat Glomerular Filtration Rate 85 ML/MIN Ethyl Alcohol Level LESS THAN 3 MG/DL [facility] Supervised Visit with AGNES: Yes Diagnosis Primary Impression: Adjustment reaction Qualified Codes: F43.23 - Adjustment disorder with mixed anxiety and depressed mood Additional Impression: UTI (urinary tract infection) Qualified Codes: N39.0 - Urinary tract infection, site not specified; R31.9 - Hematuria, unspecified Patient Instructions: General Instructions Med/Other Pt SpecificInfo: Prescription(s) given Scripts Nitrofurantoin Monohydrate Macrocrystals (Macrobid) 100 Mg Cap 100 MG PO BID for Infection for 7 Days, CAP 0 Refills Prov: Lisset Jeong 02/03/17 Condition: Stable Christine Campbell DO Feb 03, 2017 01:04
[2017-02-03] MEDS ORDERED: DEXTROSE 10% INJ 1,000 ML IV SCH (01:15)
[2017-02-03 03:11] VITALS: BP 127/77; PULSE 78; RESP 18; O2SAT 100
[2017-02-03 07:30] VITALS: BP 105/66; PULSE 66; RESP 18; O2SAT 98
--- NOTE | 2017-02-03 15:26 | PD ---
Physical Exam Time Seen by Provider: 15:23 Data Data Last Documented VS Vital Signs Date Time Temp Pulse Resp B/P (MAP) Pulse Ox O2 Delivery O2 Flow Rate FiO2 02/03/17 13:44 02/03/17 07:30 66 18 98 Room Air 02/02/17 21:05 98.0 Orders Orders Complete Blood Count With Diff (02/02/17 19:17) Basic Metabolic Panel (Bmp) (02/02/17 19:17) Urinalysis - C+S If Indicated (02/02/17 19:17) Psych Screen (02/02/17 19:17) Drug Screen, Random Urine (02/02/17 19:17) Alcohol (Ethanol) (02/02/17 19:17) Urine Culture (02/02/17 21:26) Nitrofurantoin Monohyd Macrocr (Macrobid (02/02/17 23:15) Zolpidem (Ambien) (02/03/17 00:45) Dextrose 10% Inj (D10w Inj) (02/03/17 01:15) Blood Glucose (02/03/17 02:00) Diet Regular Basic (02/03/17 Dinner) Labs Laboratory Tests Test 02/02/17 21:26 02/03/17 00:00 Urine Color YELLOW Urine Turbidity HAZY Urine pH 6.0 Urine Specific [place] 1.023 Urine Protein NEG mg/dL Urine Glucose (UA) NEG mg/dL Urine Ketones NEG mg/dL Urine Occult Blood TRACE Urine Nitrite POS Urine Bilirubin NEG Urine Urobilinogen LESS THAN 2.0 MG/DL Urine Leukocyte Esterase MOD Urine RBC LESS THAN 1 /hpf Urine WBC 4 /hpf Urine Squamous Epithelial Cells 1 /hpf Urine Amorphous Sediment RARE Urine Bacteria MANY /hpf Microscopic Urinalysis Comment CULTURE INDICATED Urine Opiates Screen NEG Urine Barbiturates Screen POS Urine Amphetamines Screen NEG Urine Benzodiazepines Screen POS Urine Cocaine Screen NEG Urine Cannabinoids Screen NEG White Blood Count 3.7 TH/MM3 Red Blood Count 3.03 MIL/MM3 Hemoglobin 8.4 GM/DL Hematocrit 25.8 % Mean Corpuscular Volume 85.0 FL Mean Corpuscular Hemoglobin 27.7 PG Mean Corpuscular Hemoglobin Concent 32.6 % Red Cell Distribution Width 16.4 % Platelet Count 125 TH/MM3 Mean Platelet Volume 10.2 FL Neutrophils (%) (Auto) 45.9 % Lymphocytes (%) (Auto) 41.7 % Monocytes (%) (Auto) 10.4 % Eosinophils (%) (Auto) 1.7 % Basophils (%) (Auto) 0.3 % Neutrophils # (Auto) 1.7 TH/MM3 Lymphocytes # (Auto) 1.6 TH/MM3 Monocytes # (Auto) 0.4 TH/MM3 Eosinophils # (Auto) 0.1 TH/MM3 Basophils # (Auto) 0.0 TH/MM3 CBC Comment DIFF FINAL Differential Comment Blood Urea Nitrogen 23 MG/DL Creatinine 0.71 MG/DL Random Glucose 76 MG/DL Calcium Level 8.3 MG/DL Sodium Level 141 MEQ/L Potassium Level 4.3 MEQ/L Chloride Level 107 MEQ/L Carbon Dioxide Level 27.4 MEQ/L Anion Gap 7 MEQ/L Estimat Glomerular Filtration Rate 85 ML/MIN Ethyl Alcohol Level LESS THAN 3 MG/DL MDM Medical Record Reviewed: Yes Supervised Visit with AGNES: No Narrative Course Patient was seen and evaluated by psychiatry. Mccurdy Act has been lifted. Pt has no further medical needs. She will be given prescription for macrobid for UTI. She will be discharged at this time. Diagnosis Primary Impression: Adjustment reaction Qualified Codes: F43.23 - Adjustment disorder with mixed anxiety and depressed mood Additional Impression: UTI (urinary tract infection) Qualified Codes: N39.0 - Urinary tract infection, site not specified; R31.9 - Hematuria, unspecified Referrals: Primary Care Physician Psychiatrist Patient Instructions: General Instructions Additional Instruction: Follow up with your primary care provider Return to ED with acute worsening of symptoms Med/Other Pt SpecificInfo: Prescription(s) given Scripts Nitrofurantoin Monohydrate Macrocrystals (Macrobid) 100 Mg Cap 100 MG PO BID for Infection for 7 Days, CAP 0 Refills Prov: Lisset Jeong 02/03/17 Disposition: 01 DISCHARGE HOME Condition: Stable Lisset Jeong Feb 03, 2017 15:26
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
== END 2017-02-03 16:10 | disposition home or self-care (01) ==
LOC: NEPC 18:07 → NEPJ 02-03 16:10
DX: F43.25 Adjustment disorder with mixed disturbance of emotions and conduct (principal); N39.0 Urinary tract infection, site not specified; B96.1 Klebsiella pneumoniae [K. pneumoniae] as the cause of diseases classified elsewhere; F41.9 Anxiety disorder, unspecified; I10 Essential (primary) hypertension; K31.84 Gastroparesis; D72.819 Decreased white blood cell count, unspecified; D69.6 Thrombocytopenia, unspecified; Z79.899 Other long term (current) drug therapy
CPT/HCPCS: 80048; 80307; 81001; 85025; 87077; 87086; 87186; 96374

== ENCOUNTER 2017-02-04 09:52 | Emergency (ER) | payer BC, OTHER ==
[~2017-02-04] VITALS: Ht 157.5 cm; Wt 50.0 kg
[~2017-02-04 09:52] MED LIST changes: +MACR100C2 PO
[2017-02-04 09:55] VITALS: BP 136/80; PULSE 75; RESP 20; TEMP 98.5; O2SAT 98
[2017-02-04] MEDS ORDERED: diphenhydrAMINE HCL 25 MG CAP PO ONE (10:45)
[2017-02-04] MEDS ORDERED: ACETAMINOPHEN 325 MG TAB PO ONE (10:45)
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
== END 2017-02-04 11:35 | disposition home or self-care (01) ==
LOC: NEPD 09:52
DX: R10.9 Unspecified abdominal pain (principal); G89.29 Other chronic pain; R11.0 Nausea; Z79.899 Other long term (current) drug therapy
CPT/HCPCS: 99281

== ENCOUNTER 2017-05-01 03:20 | Emergency (ER) | payer BC ==
[~2017-05-01] VITALS: Ht 160 cm; Wt 42.0 kg
[~2017-05-01 03:20] MED LIST changes: -CYAN1000P IM; -THIA200P IM
[2017-05-01 03:24] VITALS: BP 161/84; PULSE 67; RESP 14; O2SAT 98
[2017-05-01] MEDS ORDERED: OXYC-103 PO (03:44)
[2017-05-01 03:47] VITALS: BP 169/101; PULSE 62; RESP 18; O2SAT 100
[2017-05-01] MEDS ORDERED: SODIUM CHLORIDE 0.9% FLUSH 10 ML FLUSH IV FLUSH PRN ×2 (04:30→10:15)
--- NOTE | 2017-05-01 05:02 | PD ---
HPI Chief Complaint: General Weakness Time Seen by Provider: 03:39 Travel History International Travel<30 days: No Contact w/Intl Traveler<30days: No Traveled to known affect area: No History of Present Illness HPI Patient is a 56-year-old female presents emergency department for evaluation of generalized weakness more particularly weakness in her lower extremities. Patient is well-known to me from previous ER visits. She states that she was doing very well and has been here in a long time in the last visit was in January. She is on TPN for history of chronic abdominal pain which is not well explained on multiple ER visits here. The patient states that for the past 24 hours she just had weakness of her lower extremities and inability to ambulate. She states it feels a little numbness and tingling but denies any back pain and headaches chest pain shortness of breath or abdominal pain at this time. PFSH Past Medical History Hx Anticoagulant Therapy: No Asthma: No Blood Disorders: No Anxiety: Yes Depression: Yes Heart Rhythm Problems: No Cancer: Yes (KIDNEY ) Cardiovascular Problems: Yes High Cholesterol: No Chemotherapy: No Chest Pain: No Congestive Heart Failure: No COPD: No Cerebrovascular Accident: Yes Diabetes: No Diminished Hearing: No Endocrine: No Gastrointestinal Disorders: Yes (GASTRECTOMY, CHRONIC ABDOMINAL PAIN ) GERD: No Genitourinary: Yes (OCCASSIONAL UTI) Headaches: Yes Hiatal Hernia: Yes Hypertension: Yes Immune Disorder: No Implanted Vascular Access Dvce: No Kidney Stones: No Musculoskeletal: No Neurologic: Yes (CVA 2004) Psychiatric: No Reproductive: No Respiratory: No Immunizations Current: Yes Migraines: Yes Myocardial Infarction: Yes (2004) Pneumonia: Yes Radiation Therapy: No Renal Failure: No Seizures: Yes Sleep Apnea: No Thyroid Disease: No Ulcer: No Influenza Vaccination: Yes ?: Not Menopausal: Yes : 1 Para: 1 Miscarriage: 0 : 0 Ectopic : No Ovarian Cysts: No Dilation and Curettage (D&C): Yes Tubal Ligation: Yes Past Surgical History Abdominal Surgery: Yes (total gastrectomy w/pouch 2002, hernia repair) Appendectomy: Yes Cardiac Surgery: Yes (REPAIRED HOLE IN HEART) Cholecystectomy: Yes Genitourinary Surgery: Yes (RIGHT NEPHRECTOMY) Gynecologic Surgery: Yes Hysterectomy: No Thoracic Surgery: No Tonsillectomy: Yes Other Surgery: Yes (GASTRECTOMY, RIGHT KIDNEY REMOVAL, HERNIA REPAIR, GALLBLADDER, TONSILS) Social History Alcohol Use: No (PT DENIES) Tobacco Use: No (PT DENIES) Substance Use: No (PT DENIES) Allergies-Medications (Allergen,Severity, Reaction): Coded Allergies: Sulfa (Sulfonamide Antibiotics) (Verified Allergy, Severe, Rash, 05/01/17) gadobenic acid (Verified Allergy, Severe, Anaphylaxis, 05/01/17) gadodiamide (Verified Allergy, Severe, Anaphylaxis, 05/01/17) gadoteridol (Verified Allergy, Severe, Anaphylaxis, 05/01/17) ketorolac (Verified Allergy, Severe, Shortness of Breath, 05/01/17) metoclopramide (Verified Allergy, Severe, Shortness of Breath, 05/01/17) morphine (Verified Allergy, Severe, Hives, 05/01/17) ondansetron (Verified Allergy, Severe, Shortness of Breath, 05/01/17) penicillin G (Verified Allergy, Severe, Rash, 05/01/17) prochlorperazine (Verified Allergy, Severe, Shortness of Breath, 05/01/17) promethazine (Verified Allergy, Severe, Shortness of Breath, 05/01/17) shellfish derived (Verified Allergy, Severe, Anaphylaxis, 05/01/17) trimethobenzamide (Verified Allergy, Severe, Shortness of Breath, 05/01/17 ) Reported Meds & Prescriptions Reported Meds & Active Scripts Active Potassium Chloride ER (Potassium Chloride) 10 Meq Cap 10 Meq PO DAILY Reported Oxycontin (Oxycodone HCl) 10 Mg Tab 10 Mg PO Q8HR Vitamin E (Vitamin E Mixed) 400 Unit Tablet 1 Tab PO DAILY Vitamin D-1000 (Cholecalciferol) 1,000 Unit Tab 1,000 Units PO DAILY Magnesium Oxide 400 Mg Tab 400 Mg PO BID Calcitrate (Calcium Citrate-Vitamin D) 315-250 Mg-Unit Tab 1 Tab PO QID Dicyclomine (Dicyclomine HCl) 20 Mg Tab 40 Mg PO TID Fioricet (Xcvqebzcnx-Veoagmxhjkvaz-Qszyzegc) 50-300-40 Mg Cap 1-2 Cap PO Q6H PRN Zoloft (Sertraline HCl) 50 Mg Tab 50 Mg PO DAILY Dulcolax Stool Softener (Docusate Sodium) 100 Mg Cap 100 Mg PO HS Ambien (Zolpidem Tartrate) 10 Mg Tab 10 Mg PO HS PRN Valium (Diazepam) 10 Mg Tab 10 Mg PO TID Buspirone (Buspirone HCl) 7.5 Mg Tab 30 Mg PO TID Review of Systems Except as stated in HPI: all other systems reviewed are Neg Physical Exam Narrative GENERAL: Well-developed cachectic, pale but in no obvious distress. SKIN: Focused skin assessment warm/dry. HEAD: Atraumatic. Normocephalic. EYES: Pupils equal and round. No scleral icterus. No injection or drainage. ENT: No nasal bleeding or discharge. Mucous membranes pink and moist. NECK: Trachea midline. No JVD. CARDIOVASCULAR: Regular rate and rhythm. No murmur appreciated. RESPIRATORY: No accessory muscle use. Clear to auscultation. Breath sounds equal bilaterally. GASTROINTESTINAL: Abdomen soft, non-tender, nondistended. Hepatic and splenic margins not palpable. MUSCULOSKELETAL: No obvious deformities. No clubbing. No cyanosis. No edema. NEUROLOGICAL: Awake and alert. No obvious cranial nerve deficits. No motor tone of her lower extremities, I wonder if there is a lack of effort. Sensation is intact, DTRs are 2+ bilateral equal at the patella and Achilles. PSYCHIATRIC: Appropriate mood and affect; insight and judgment normal. Data Data Last Documented VS Vital Signs Date Time Temp Pulse Resp B/P (MAP) Pulse Ox O2 Delivery O2 Flow Rate FiO2 05/01/17 06:29 63 18 107/78 (88) 98 Room Air Orders Orders Complete Blood Count With Diff (05/01/17 04:19) Comprehensive Metabolic Panel (05/01/17 04:19) Iv Access Insert/Monitor (05/01/17 04:19) Ecg Monitoring (05/01/17 04:19) Oximetry (05/01/17 04:19) Sodium Chloride 0.9% Flush (Ns Flush) (05/01/17 04:30) Mri C Spine W/O Contrast (05/01/17 ) Mri L Spine W/O Contrast (05/01/17 ) Mri T Spine W/O Contrast (05/01/17 ) Labs Laboratory Tests Test 05/01/17 04:50 White Blood Count 2.7 TH/MM3 Red Blood Count 3.59 MIL/MM3 Hemoglobin 9.3 GM/DL Hematocrit 28.9 % Mean Corpuscular Volume 80.6 FL Mean Corpuscular Hemoglobin 26.0 PG Mean Corpuscular Hemoglobin Concent 32.2 % Red Cell Distribution Width 21.1 % Platelet Count 138 TH/MM3 Mean Platelet Volume 9.0 FL Neutrophils (%) (Auto) 35.4 % Lymphocytes (%) (Auto) 47.8 % Monocytes (%) (Auto) 12.8 % Eosinophils (%) (Auto) 3.8 % Basophils (%) (Auto) 0.2 % Neutrophils # (Auto) 1.0 TH/MM3 Lymphocytes # (Auto) 1.3 TH/MM3 Monocytes # (Auto) 0.4 TH/MM3 Eosinophils # (Auto) 0.1 TH/MM3 Basophils # (Auto) 0.0 TH/MM3 CBC Comment DIFF FINAL Differential Comment Blood Urea Nitrogen 14 MG/DL Creatinine 0.90 MG/DL Random Glucose 76 MG/DL Total Protein 6.1 GM/DL Albumin 3.2 GM/DL Calcium Level 8.4 MG/DL Alkaline Phosphatase 102 U/L Aspartate Amino Transf (AST/SGOT) 27 U/L Alanine Aminotransferase (ALT/SGPT) 30 U/L Total Bilirubin 0.2 MG/DL Sodium Level 142 MEQ/L Potassium Level 4.4 MEQ/L Chloride Level 108 MEQ/L Carbon Dioxide Level 28.1 MEQ/L Anion Gap 6 MEQ/L Estimat Glomerular Filtration Rate 65 ML/MIN MDM Medical Decision Making Medical Screen Exam Complete: Yes Emergency Medical Condition: Yes Differential Diagnosis Poor social circumstance, electrolyte abnormality, anemia, low back injury, Narrative Course Patient roomed in the emergency department, fairly weak in her lower extremities though I do think there is a lack of effort. No back pain on initial evaluation patient does appear more pale than I remember, hemoglobin is about her baseline however. Electrolytes within normal limits. On revisit the patient is sleeping soundly but easily aroused. She is requesting pain medicine and something for anxiety and I offered Dilaudid. She's been lectured multiple times on the use of narcotic pain medicine for her chronic abdominal pain in this ER by multiple providers. There is no acute pain that I can see that needs to be managed with high-level narcotics at this time. The patient is endorsing back pain on review of systems at this time of symptoms she previously denied. Given her weakness and MRIs indicated has been ordered. The patient will be discussed with Dr. Robles at 0700 shift change to follow- up MRI and disposition the patient appropriately. Wilmer Hyman MD May 01, 2017 05:02
[2017-05-01 05:08] VITALS: O2SAT 100
[2017-05-01 05:08] LABS: BASOPHIL % 0.2 % (0.0-2.0); EOSINOPHIL # 0.1 TH/MM3 (0-0.4); EOSINOPHIL % 3.8 % (0.0-4.0); HEMATOCRIT 28.9 % (35.0-46.0); HEMO FLAGS DIFF FINAL; LYMPH % 47.8 % (9.0-44.0); LYMPHOCYTE # 1.3 TH/MM3 (1.0-4.8); MEAN CELL VOLUME 80.6 FL (80.0-100.0); MEAN CORPUSCULAR HGB CONC 32.2 % (32.0-36.0); MONO % 12.8 % (0.0-8.0); NEUT % 35.4 % (16.0-70.0); PLATELET COUNT 138 TH/MM3 (150-450); RED BLOOD COUNT 3.59 MIL/MM3 (4.00-5.30); RED CELL DISTRIBUTION WIDTH 21.1 % (11.6-17.2); WHITE BLOOD COUNT 2.7 TH/MM3 (4.0-11.0)
[2017-05-01 05:19] LABS: ALKALINE PHOSPHATASE 102 U/L (45-117); TOTAL BILIRUBIN ADULT 0.2 MG/DL (0.2-1.0)
[2017-05-01 05:21] LABS: ALT (GPT) 30 U/L (10-53); ANION GAP 6 MEQ/L (5-15); AST (GOT) 27 U/L (15-37); BICARBONATE 28.1 MEQ/L (21.0-32.0); BLOOD UREA NITROGEN 14 MG/DL (7-18); CHLORIDE 108 MEQ/L (98-107); GLOMERULAR FILTRATION RATE 65 ML/MIN (>89); POTASSIUM 4.4 MEQ/L (3.5-5.1); SODIUM (NA) 142 MEQ/L (136-145)
[2017-05-01 06:29] VITALS: BP 107/78; PULSE 63; RESP 18; O2SAT 98
--- NOTE | 2017-05-01 08:27 | RADRPT ---
EXAM DATE/TIME: 05/01/2017 07:48 [facility] COMPARISON: No previous studies available for comparison. INDICATIONS : Chronic back pain with bilateral lower extremity weakness. MEDICAL HISTORY : Myocardial infarction. Cerebrovascular disease. SURGICAL HISTORY : Gastrectomy. Right kidney removed. ENCOUNTER: Initial ACUITY: 1 day PAIN SCORE: 3/10 LOCATION: [facility] TECHNIQUE: Multiplanar multisequence MRI of the thoracic spine was performed. FINDINGS: There is a mild kyphoscoliosis. Degenerative disc disease is present throughout the cervical spine es pecially in the mid cervical spine with some posterior osteophytic ridging effacing the anterior thec al sac. No significant cord compression. No cord edema. No direct nerve root compression identified. CONCLUSION: 1. Mild kyphoscoliosis with moderate degenerative disc disease in the mid thoracic spine effacing the anterior thecal sac. No significant cord compression and no cord signal abnormality. No acute fractu re. Ankit Fong MD on May 01, 2017 at 8:18 Board Certified Radiologist. This report was verified electronically.
--- NOTE | 2017-05-01 08:47 | RADRPT ---
EXAM DATE/TIME: 05/01/2017 07:48 [facility] COMPARISON: No previous studies available for comparison. INDICATIONS : Chronic back pain with bilateral lower extremity weakness. MEDICAL HISTORY : Myocardial infarction. Cerebrovascular disease. SURGICAL HISTORY : Gastrectomy, Right kidney removed. ENCOUNTER: Initial ACUITY: 1 day PAIN SCORE: 3/10 LOCATION: [facility] TECHNIQUE: Multiplanar, multisequence MRI examination of the cervical spine was performed. FINDINGS: Alignment is within normal limits. No significant stenosis at C2-3. At C3-4 there is effacement of the thecal sac without cord impingement. Mild foraminal stenosis bilat erally. At C4-5 there is disc osteophyte complex effacing the thecal sac. No cord compression. At C5-6 there is a broad-based posterior disc osteophyte complex resulting in mild AP canal stenosis and mild flattening of the cord with mild foraminal encroachment bilaterally. At C6-7 and C7-T1 there is no significant stenosis. CONCLUSION: 1. At C5-6 there is a mild to moderate AP canal stenosis with mild flattening of the cord. Less sever e degenerative change in the remainder of the cervical spine as above. No cord signal abnormality. Al ignment within normal limits. Ankit Fong MD on May 01, 2017 at 8:34 Board Certified Radiologist. This report was verified electronically.
--- NOTE | 2017-05-01 08:48 | RADRPT ---
EXAM DATE/TIME: 05/01/2017 07:48 [facility] COMPARISON: No previous studies available for comparison. INDICATIONS : Cronic back pain with bilateral lower extremity weakness. MEDICAL HISTORY : Myocardial infarction. Cerebrovascular disease. SURGICAL HISTORY : Gastrectomy. Right kidney removed. ENCOUNTER: Initial ACUITY: 1 day PAIN SCORE: 3/10 LOCATION: [facility] TECHNIQUE: Multiplanar multisequence MRI of the lumbar spine was performed without contrast. FINDINGS: The most caudal appearing lumbar vertebra is numbered as L5. VERTEBRAE: Homogeneous signal. Normal alignment. CONUS: Normal level and configuration. T12-L1: The thecal sac has a normal diameter. No evidence of disc bulge or protrusion. The neural foramina are patent bilaterally. L1-L2: The thecal sac has a normal diameter. No evidence of disc bulge or protrusion. The neural foramina are patent bilaterally. L2-L3: The thecal sac has a normal diameter. No evidence of disc bulge or protrusion. The neural foramina are patent bilaterally. L3-L4: The thecal sac has a normal diameter. No evidence of disc bulge or protrusion. The neural foramina are patent bilaterally. L4-L5: The thecal sac has a normal diameter. No evidence of disc bulge or protrusion. The neural foramina are patent bilaterally. L5-S1: The thecal sac has a normal diameter. No evidence of disc bulge or protrusion. The neural foramina are patent bilaterally. CONCLUSION: 1. No acute findings on MRI lumbar spine. No canal stenosis or significant nerve root compression. Mi ld to moderate facet arthropathy in the lower lumbar spine. Ankit Fong MD on May 01, 2017 at 8:45 Board Certified Radiologist. This report was verified electronically.
[2017-05-01] MEDS ORDERED: SODIUM CHLOR 0.45% 1000 ML INJ 1,000 ML IV SCH (10:04)
[2017-05-01 10:09] VITALS: BP 148/87; PULSE 65; RESP 20; O2SAT 100
--- NOTE | 2017-05-01 10:13 | PD ---
Physical Exam Date Seen by Provider: May 01, 2017 Time Seen by Provider: 07:00 Narrative This patient was signed out to me by Dr. Hyman. The patient came man with chronic abdominal pain. Patient also stating that she could not ambulate. The patient is well-known to this emergency department has had multiple visits for the same thing. The patient has negative workups. She does have a history of gastrectomy is on TPN. She is continuously requesting IVD narcotics. Dr. Hyman told her multiple times at this point we did not feel I V narcotics were beneficial as there is no indication or pathology that indicated that at this point. The patient continued to state that she could not walk. Dr. Hyman ordered an MRI of the C-spine and T-spine and L-spine to rule out any cord abnormality. These were pending at the time of sign out. Data Data Last Documented VS Vital Signs Date Time Temp Pulse Resp B/P (MAP) Pulse Ox O2 Delivery O2 Flow Rate FiO2 05/01/17 10:09 65 20 148/87 (107) 100 Room Air Orders Orders Complete Blood Count With Diff (05/01/17 04:19) Comprehensive Metabolic Panel (05/01/17 04:19) Iv Access Insert/Monitor (05/01/17 04:19) Ecg Monitoring (05/01/17 04:19) Oximetry (05/01/17 04:19) Sodium Chloride 0.9% Flush (Ns Flush) (05/01/17 04:30) Mri C Spine W/O Contrast (05/01/17 ) Mri L Spine W/O Contrast (05/01/17 ) Mri T Spine W/O Contrast (05/01/17 ) Vitamin D, 25-Hydroxy (05/01/17 10:03) Thyroid Stimulating Hormone (05/01/17 10:03) Free Thyroxine (T4) (05/01/17 10:03) Vitamin B12 (05/01/17 10:03) Folate, Serum (05/01/17 10:03) Thiamine (Vit B1) (Vitamin B1) (05/01/17 10:15) Thiamine (Vit B1) (Vitamin B1) (05/02/17 09:00) Place In Observation (05/01/17 ) Vital Signs (Adult) Q4H (05/01/17 10:04) Neuro Checks Q4H (05/01/17 10:04) Activity Oob With Assistance (05/01/17 10:04) Diet Regular Basic (05/01/17 Lunch) Sodium Chlor 0.45% 1000 Ml Inj (1/2 Ns 1 (05/01/17 10:04) Sodium Chloride 0.9% Flush (Ns Flush) (05/01/17 10:15) Sodium Chloride 0.9% Flush (Ns Flush) (05/01/17 21:00) Comprehensive Metabolic Panel (05/02/17 06:00) Complete Blood Count With Diff (05/02/17 06:00) Case Management Consult (05/01/17 10:04) Scd Bilateral/Knee High MIGUEL.BID (05/01/17 10:04) Naloxone Inj (Narcan Inj) (05/01/17 10:15) Magnesium Hydroxide Liq (Milk Of Magnesi (05/01/17 10:15) Sennosides (Senokot) (05/01/17 10:15) Bisacodyl Supp (Dulcolax Supp) (05/01/17 10:15) Lactulose Liq (Lactulose Liq) (05/01/17 10:15) Labs Laboratory Tests Test 05/01/17 04:50 White Blood Count 2.7 TH/MM3 Red Blood Count 3.59 MIL/MM3 Hemoglobin 9.3 GM/DL Hematocrit 28.9 % Mean Corpuscular Volume 80.6 FL Mean Corpuscular Hemoglobin 26.0 PG Mean Corpuscular Hemoglobin Concent 32.2 % Red Cell Distribution Width 21.1 % Platelet Count 138 TH/MM3 Mean Platelet Volume 9.0 FL Neutrophils (%) (Auto) 35.4 % Lymphocytes (%) (Auto) 47.8 % Monocytes (%) (Auto) 12.8 % Eosinophils (%) (Auto) 3.8 % Basophils (%) (Auto) 0.2 % Neutrophils # (Auto) 1.0 TH/MM3 Lymphocytes # (Auto) 1.3 TH/MM3 Monocytes # (Auto) 0.4 TH/MM3 Eosinophils # (Auto) 0.1 TH/MM3 Basophils # (Auto) 0.0 TH/MM3 CBC Comment DIFF FINAL Differential Comment Blood Urea Nitrogen 14 MG/DL Creatinine 0.90 MG/DL Random Glucose 76 MG/DL Total Protein 6.1 GM/DL Albumin 3.2 GM/DL Calcium Level 8.4 MG/DL Alkaline Phosphatase 102 U/L Aspartate Amino Transf (AST/SGOT) 27 U/L Alanine Aminotransferase (ALT/SGPT) 30 U/L Total Bilirubin 0.2 MG/DL Sodium Level 142 MEQ/L Potassium Level 4.4 MEQ/L Chloride Level 108 MEQ/L Carbon Dioxide Level 28.1 MEQ/L Anion Gap 6 MEQ/L Estimat Glomerular Filtration Rate 65 ML/MIN [facility] Medical Record Reviewed: Yes Supervised Visit with AGNES: No Narrative Course Page signed out to me at change of shift. We are awaiting the MRI results. MRI of C-spine and T-spine and L-spine show no evidence of acute cord compression. There is effacement of the cord in the T and L-spine. There is no evidence to explain the patient's reported inability to ambulate. The patient has been observed moving in her bed without assistance however when the nursing staff, and she states she cannot move. The patient has also requested multiple times for pain medication. I have stated that I'm not comfortable giving IV narcotics for a condition that we do not know is the cause of her symptoms. She was given to be admitted to the hospital. The case was discussed with [facility] Natalio Ford, [facility]. When this information was passed onto the patient, she requested to sign out AGAINST MEDICAL ADVICE. AMA: The risks of leaving against medical advice without further evaluation treatment were discussed with the patient. These risks include cardiac dysfunction, cardiac dysrhythmia, possible heart attack, possible stroke or . The patient indicated understanding of these risks and appeared to have the capacity to make this decision. Diagnosis Primary Impression: Chronic abdominal pain Additional Impressions: reported inability to walk. requesting narcotics. Disposition: 07 AGAINST MEDICAL ADVICE Condition: Stable Eladio Robles MD May 01, 2017 10:13
[2017-05-01] MEDS ORDERED: LACTULOSE SYRUP 20 GM/30 ML CUP PO PRN (10:15)
[2017-05-01] MEDS ORDERED: SENNOSIDES 8.6 MG TAB PO PRN (10:15)
[2017-05-01] MEDS ORDERED: BISACODYL 10 MG SUPP RECTAL PRN (10:15)
[2017-05-01] MEDS ORDERED: THIAMINE HCL 100 MG TAB PO ONE (10:15)
[2017-05-01] MEDS ORDERED: NALOXONE HCL 0.4 MG/ML AMP IV PUSH PRN (10:15)
[2017-05-01] MEDS ORDERED: MAGNESIUM HYDROXIDE SUSP 30 ML CUP PO PRN (10:15)
[2017-05-01 14:49] LABS: FREE T4 0.95 NG/DL (0.76-1.46)
[2017-05-01] MEDS ORDERED: SODIUM CHLORIDE 0.9% FLUSH 10 ML FLUSH IV FLUSH SCH (21:00)
[2017-05-02] MEDS ORDERED: THIAMINE HCL 100 MG TAB PO SCH (09:00)
== END 2017-05-01 11:00 | disposition left against medical advice (07) ==
LOC: NEPC 03:20
DX: R10.9 Unspecified abdominal pain (principal); G89.29 Other chronic pain; R26.89 Other abnormalities of gait and mobility; R53.1 Weakness; F41.9 Anxiety disorder, unspecified; F32.9 Major depressive disorder, single episode, unspecified; I10 Essential (primary) hypertension; I25.2 Old myocardial infarction; Z86.73 Personal history of transient ischemic attack (TIA), and cerebral infarction without residual deficits
CPT/HCPCS: 72141; 72146; 72148; 80053; 82306; 82607; 82746; 84439; 84443; 85025; 99285

== ENCOUNTER 2017-05-02 16:22 | Inpatient (IN) | payer BC ==
[~2017-05-02] VITALS: Ht 160 cm; Wt 41.5 kg
[~2017-05-02 16:22] MED LIST changes: -MACR100C2 PO; +OXYC-103 PO; -SUMA100T2 PO
[2017-05-02 16:28] VITALS: BP 147/93; PULSE 74; RESP 20; O2SAT 100
--- NOTE | 2017-05-02 17:07 | PD ---
HPI . Weakness Chief Complaint: General Weakness Time Seen by Provider: 16:51 Travel History International Travel<30 days: No Contact w/Intl Traveler<30days: No Traveled to known affect area: No History of Present Illness HPI This patient presents complaining with weakness and inability to walk. She is speaking so softly that I can't understand anything that she says. Patient was seen here on 05/01 for chronic abdominal pain. She complained of the inability to walk at that time as well. She had an MRI of her entire spine done which was negative. She was frequently requesting narcotics. Arrangements were made for her to be admitted to the hospital because of her inability to ambulate. However, the patient subsequently signed out AMA. The patient was noted to be voluntarily moving in her bed during her entire stay. PFSH Past Medical History Hx Anticoagulant Therapy: No Asthma: No Blood Disorders: No Anxiety: Yes Depression: Yes Heart Rhythm Problems: No Cancer: Yes (KIDNEY ) Cardiovascular Problems: Yes High Cholesterol: No Chemotherapy: No Chest Pain: No Congestive Heart Failure: No COPD: No Cerebrovascular Accident: Yes Diabetes: No Diminished Hearing: No Endocrine: No Gastrointestinal Disorders: Yes (GASTRECTOMY, CHRONIC ABDOMINAL PAIN ) GERD: No Genitourinary: Yes (OCCASSIONAL UTI) Headaches: Yes Hiatal Hernia: Yes Hypertension: Yes Immune Disorder: No Implanted Vascular Access Dvce: No Kidney Stones: No Musculoskeletal: No Neurologic: Yes (CVA 2004) Psychiatric: No Reproductive: No Respiratory: No Immunizations Current: Yes Migraines: Yes Myocardial Infarction: Yes (2004) Pneumonia: Yes Radiation Therapy: No Renal Failure: No Seizures: Yes Sleep Apnea: No Thyroid Disease: No Ulcer: No Tetanus Vaccination: < 5 Years Influenza Vaccination: Yes Menopausal: Yes : 1 Para: 1 Miscarriage: 0 : 0 Ectopic : No Ovarian Cysts: No Dilation and Curettage (D&C): Yes Tubal Ligation: Yes Past Surgical History Abdominal Surgery: Yes (total gastrectomy w/pouch 2002, hernia repair) Appendectomy: Yes Cardiac Surgery: Yes (REPAIRED HOLE IN HEART) Cholecystectomy: Yes Genitourinary Surgery: Yes (RIGHT NEPHRECTOMY) Gynecologic Surgery: Yes Hysterectomy: No Thoracic Surgery: No Tonsillectomy: Yes Other Surgery: Yes (GASTRECTOMY, RIGHT KIDNEY REMOVAL, HERNIA REPAIR, GALLBLADDER, TONSILS) Social History Alcohol Use: No (PT DENIES) Tobacco Use: No (PT DENIES) Substance Use: No (PT DENIES) Allergies-Medications (Allergen,Severity, Reaction): Coded Allergies: Sulfa (Sulfonamide Antibiotics) (Verified Allergy, Severe, Rash, 05/01/17) gadobenic acid (Verified Allergy, Severe, Anaphylaxis, 05/01/17) gadodiamide (Verified Allergy, Severe, Anaphylaxis, 05/01/17) gadoteridol (Verified Allergy, Severe, Anaphylaxis, 05/01/17) ketorolac (Verified Allergy, Severe, Shortness of Breath, 05/01/17) metoclopramide (Verified Allergy, Severe, Shortness of Breath, 05/01/17) morphine (Verified Allergy, Severe, Hives, 05/01/17) ondansetron (Verified Allergy, Severe, Shortness of Breath, 05/01/17) penicillin G (Verified Allergy, Severe, Rash, 05/01/17) prochlorperazine (Verified Allergy, Severe, Shortness of Breath, 05/01/17) promethazine (Verified Allergy, Severe, Shortness of Breath, 05/01/17) shellfish derived (Verified Allergy, Severe, Anaphylaxis, 05/01/17) trimethobenzamide (Verified Allergy, Severe, Shortness of Breath, 05/01/17 ) Reported Meds & Prescriptions Reported Meds & Active Scripts Active Reported Oxycontin (Oxycodone HCl) 10 Mg Tab 10 Mg PO Q8HR Vitamin E (Vitamin E Mixed) 400 Unit Tablet 400 Units PO DAILY Vitamin D-1000 (Cholecalciferol) 1,000 Unit Tab 1,000 Units PO DAILY Magnesium Oxide 400 Mg Tab 400 Mg PO BID Calcitrate (Calcium Citrate-Vitamin D) 315-250 Mg-Unit Tab 1 Tab PO QID Dicyclomine (Dicyclomine HCl) 20 Mg Tab 40 Mg PO TID Fioricet (Jumkqvogqz-Jzbeswgdrhuep-Uwiwdehd) 50-300-40 Mg Cap 1-2 Cap PO Q6H PRN Zoloft (Sertraline HCl) 50 Mg Tab 50 Mg PO DAILY Dulcolax Stool Softener (Docusate Sodium) 100 Mg Cap 100 Mg PO HS Ambien (Zolpidem Tartrate) 10 Mg Tab 10 Mg PO HS PRN Valium (Diazepam) 10 Mg Tab 10 Mg PO TID Buspirone (Buspirone HCl) 7.5 Mg Tab 30 Mg PO TID Review of Systems ROS Limitations: Poor Historian Physical Exam Narrative GENERAL: Patient is lying on the bed in the left lateral decubitus position. Very thin and chronically ill-appearing. SKIN: warm/dry. Good turgor. HEAD: Normocephalic. Atraumatic. EYES: Pupils equal and round. No scleral icterus. No injection or drainage. ENT: No nasal bleeding or discharge. Mucous membranes pink and moist. NECK: Trachea midline. Full range of motion without pain.. CARDIOVASCULAR: Regular rate and rhythm. RESPIRATORY: No accessory muscle use. Clear to auscultation. Breath sounds equal bilaterally. GASTROINTESTINAL: Abdomen soft. Nontender. Bowel sounds present. Nondistended. : MUSCULOSKELETAL: Diffuse muscle atrophy. NEUROLOGICAL: Awake and alert. No obvious cranial nerve deficits. PSYCHIATRIC: Difficult to evaluate. Data Data Last Documented VS Vital Signs Date Time Temp Pulse Resp B/P (MAP) Pulse Ox O2 Delivery O2 Flow Rate FiO2 05/02/17 18:37 98 Room Air 05/02/17 16:28 74 20 147/93 (111) Orders Orders Mri Brain W/O Contrast (05/02/17 17:41) Sepsis Workup Initiated (05/02/17 ) Complete Blood Count With Diff (05/02/17 17:41) Comprehensive Metabolic Panel (05/02/17 17:41) Lactic Acid Sepsis Protocol (05/02/17 17:41) Troponin I (05/02/17 17:41) Urinalysis - C+S If Indicated (05/02/17 17:41) Blood Culture (05/02/17 17:41) Blood Glucose (05/02/17 17:41) Ecg Monitoring (05/02/17 17:41) Iv Access Insert/Monitor (05/02/17 17:41) Cath For Specimen (05/02/17 17:41) Oximetry (05/02/17 17:41) Labs Laboratory Tests Test 05/02/17 18:00 White Blood Count 3.6 TH/MM3 Red Blood Count 3.67 MIL/MM3 Hemoglobin 9.7 GM/DL Hematocrit 29.9 % Mean Corpuscular Volume 81.6 FL Mean Corpuscular Hemoglobin 26.5 PG Mean Corpuscular Hemoglobin Concent 32.5 % Red Cell Distribution Width 21.2 % Platelet Count 146 TH/MM3 Mean Platelet Volume 9.5 FL Neutrophils (%) (Auto) 49.7 % Lymphocytes (%) (Auto) 38.4 % Monocytes (%) (Auto) 9.7 % Eosinophils (%) (Auto) 2.1 % Basophils (%) (Auto) 0.1 % Neutrophils # (Auto) 1.8 TH/MM3 Lymphocytes # (Auto) 1.4 TH/MM3 Monocytes # (Auto) 0.3 TH/MM3 Eosinophils # (Auto) 0.1 TH/MM3 Basophils # (Auto) 0.0 TH/MM3 CBC Comment DIFF FINAL Differential Comment Lactic Acid Level 1.6 mmol/L MDM Medical Decision Making Medical Screen Exam Complete: Yes Emergency Medical Condition: Yes Medical Record Reviewed: Yes (multiple visits to the emergency department with chronic pain and weakness. She has had a previous gastrectomy and is on TPN.) Differential Diagnosis Differential diagnosis of weakness includes but is not limited to infection, CVA , electrolyte disturbance, renal failure, hypoglycemia, UTI, ACS, acute blood loss Narrative Course Patient presents to us via [facility] complaining with generalized weakness. The patient was thoroughly evaluated here in 48 hours ago for same. Her evaluation will not be repeated today. I will observe her here for a while. The patient continued delay in the left lateral decubitus position for quite some time. I did not observe any spontaneous movement of her lower extremities. I have subsequently ordered an MRI of her brain. She had her spine MRIed less than 48 hours ago. I have also ordered some basic labs. The nurse was initiating this workup when the patient requested pain medication. The patient informed the nurse that she would sign out AMA if she did not get any pain medication. This is the same scenario as 2 days ago. The patient has agreed to stay. The nurse has observed spontaneous movement while drawing her blood and attempting IV access. She was not able to obtain IV access. She was able to obtain blood for routine blood work and one set of blood cultures. The patient is being turned over to the oncoming provider pending her workup. Diagnosis Primary Impression: Weakness Condition: Stable Fern Olsen MD May 02, 2017 17:07
[2017-05-02 18:37] VITALS: O2SAT 98
[2017-05-02 18:37] LABS: AUTOMATED NEUTROPHIL # 1.8 TH/MM3 (1.8-7.7); BASOPHIL % 0.1 % (0.0-2.0); EOSINOPHIL # 0.1 TH/MM3 (0-0.4); EOSINOPHIL % 2.1 % (0.0-4.0); HEMATOCRIT 29.9 % (35.0-46.0); HEMO FLAGS DIFF FINAL; LYMPH % 38.4 % (9.0-44.0); LYMPHOCYTE # 1.4 TH/MM3 (1.0-4.8); MEAN CELL VOLUME 81.6 FL (80.0-100.0); MEAN CORPUSCULAR HEMOGLOBIN 26.5 PG (27.0-34.0); MEAN CORPUSCULAR HGB CONC 32.5 % (32.0-36.0); MONO % 9.7 % (0.0-8.0); NEUT % 49.7 % (16.0-70.0); PLATELET COUNT 146 TH/MM3 (150-450); RED BLOOD COUNT 3.67 MIL/MM3 (4.00-5.30); RED CELL DISTRIBUTION WIDTH 21.2 % (11.6-17.2); WHITE BLOOD COUNT 3.6 TH/MM3 (4.0-11.0)
[2017-05-02 18:54] LABS: ALT (GPT) 33 U/L (10-53)
[2017-05-02 18:56] LABS: ANION GAP 7 MEQ/L (5-15); AST (GOT) 24 U/L (15-37); BICARBONATE 25.2 MEQ/L (21.0-32.0); BLOOD UREA NITROGEN 15 MG/DL (7-18); CHLORIDE 105 MEQ/L (98-107); GLOMERULAR FILTRATION RATE 66 ML/MIN (>89); POTASSIUM 4.2 MEQ/L (3.5-5.1); SODIUM (NA) 137 MEQ/L (136-145)
[2017-05-02 18:57] LABS: ALKALINE PHOSPHATASE 114 U/L (45-117); TOTAL BILIRUBIN ADULT 0.2 MG/DL (0.2-1.0)
[2017-05-02 19:00] VITALS: BP 136/74; PULSE 82; RESP 16; O2SAT 7; O2SAT 97
--- NOTE | 2017-05-02 19:14 | PD ---
Data Data Last Documented VS Vital Signs Date Time Temp Pulse Resp B/P (MAP) Pulse Ox O2 Delivery O2 Flow Rate FiO2 05/02/17 18:37 98 Room Air 05/02/17 16:28 74 20 147/93 (111) Orders Orders Mri Brain W/O Contrast (05/02/17 17:41) Sepsis Workup Initiated (05/02/17 ) Complete Blood Count With Diff (05/02/17 17:41) Comprehensive Metabolic Panel (05/02/17 17:41) Lactic Acid Sepsis Protocol (05/02/17 17:41) Troponin I (05/02/17 17:41) Urinalysis - C+S If Indicated (05/02/17 17:41) Blood Culture (05/02/17 17:41) Blood Glucose (05/02/17 17:41) Ecg Monitoring (05/02/17 17:41) Iv Access Insert/Monitor (05/02/17 17:41) Cath For Specimen (05/02/17 17:41) Oximetry (05/02/17 17:41) Sodium Chlor 0.9% 1000 Ml Inj (Ns 1000 M (05/02/17 19:45) Labs Laboratory Tests Test 05/02/17 18:00 White Blood Count 3.6 TH/MM3 Red Blood Count 3.67 MIL/MM3 Hemoglobin 9.7 GM/DL Hematocrit 29.9 % Mean Corpuscular Volume 81.6 FL Mean Corpuscular Hemoglobin 26.5 PG Mean Corpuscular Hemoglobin Concent 32.5 % Red Cell Distribution Width 21.2 % Platelet Count 146 TH/MM3 Mean Platelet Volume 9.5 FL Neutrophils (%) (Auto) 49.7 % Lymphocytes (%) (Auto) 38.4 % Monocytes (%) (Auto) 9.7 % Eosinophils (%) (Auto) 2.1 % Basophils (%) (Auto) 0.1 % Neutrophils # (Auto) 1.8 TH/MM3 Lymphocytes # (Auto) 1.4 TH/MM3 Monocytes # (Auto) 0.3 TH/MM3 Eosinophils # (Auto) 0.1 TH/MM3 Basophils # (Auto) 0.0 TH/MM3 CBC Comment DIFF FINAL Differential Comment Blood Urea Nitrogen 15 MG/DL Creatinine 0.89 MG/DL Random Glucose 87 MG/DL Total Protein 6.8 GM/DL Albumin 3.3 GM/DL Calcium Level 8.4 MG/DL Alkaline Phosphatase 114 U/L Aspartate Amino Transf (AST/SGOT) 24 U/L Alanine Aminotransferase (ALT/SGPT) 33 U/L Total Bilirubin 0.2 MG/DL Sodium Level 137 MEQ/L Potassium Level 4.2 MEQ/L Chloride Level 105 MEQ/L Carbon Dioxide Level 25.2 MEQ/L Anion Gap 7 MEQ/L Estimat Glomerular Filtration Rate 66 ML/MIN Lactic Acid Level 1.6 mmol/L Troponin I LESS THAN 0.02 NG/ML [facility] Medical Record Reviewed: Yes Supervised Visit with AGNES: No Narrative Course During the course of the patients emergency department visit, the patients history, examination, and differential diagnosis were reviewed with the patient. The patient was placed on a ocean rescue lieutenant with oximetry and frequent blood pressure monitoring. The patient had IV access obtained and blood work sent for analysis. The patient's case was checked out to me by Dr. Hutchinson. Please see her complete history and physical. The patient's case was checked out to me at the conclusion of her shift. The patient was initially provided normal saline a 1 L IV fluid bolus per The patients laboratory studies were reviewed and remarkable for white count of 3.6, hemoglobin 9.7 which is stable compared to previously, platelets 146 which is also stable compared to previously, monocytes 9.7. CMP is unremarkable, troponin I less than 0.02, lactic acid 1.6 Radiology studies were reviewed and remarkable for an MRI of the brain showed no acute abnormality. The patient's results were discussed with her. The patient reports to me that she's had a three-day history of problems with her memory and generalized weakness. She reports that she has not been able to ambulate without falling frequently. The patient reports that her primary care physician is . She reports that her speech and language assistant is . The patient did undergo thorough workup yesterday including MRI of the C-spine, T-spine, and L-spine. MRI of the C-spine showed C5-C6 mild to moderate AP canal stenosis with mild flattening of the cord. No cord signal abnormality. Alignment within normal limits. T-spine showed mild kyphoscoliosis with moderate degenerative disc disease in the mid thoracic spine, effacing the anterior thecal sac. No significant cord compression and no cord signal abnormality. MRI of the lumbar spine shows no acute abnormality. A call was then placed out to the patient's primary care physician regarding admission as the patient is unable to ambulate. Physical therapy evaluation will be done to further evaluate and treat. The patients results were discussed with the patient, including the plan of care. I explained that further testing and/ or monitoring is indicated based on the patients history, examination, and/ or laboratory findings. Therefore, I recommended admission for additional evaluation. The patient expressed understanding and was agreeable with this plan. The patient was admitted to the hospital in stable condition and sent to a bed under the care of Dr. Del Real. Physician Communication Physician Communication The patient's case including history, pertinent physical examination findings, and laboratory studies were discussed with Dr. Del Real. It was agreed that the patient would be admitted to his service. Diagnosis Primary Impression: Weakness Admitting Information Admitting Physician Requests: Observation Condition: Stable Cassie Wagner MD May 02, 2017 19:14
[2017-05-02] MEDS ORDERED: SODIUM CHLOR 0.9% 1000 ML INJ 1,000 ML IV ONE (19:45)
--- NOTE | 2017-05-02 19:52 | RADRPT ---
EXAM DATE/TIME: 05/02/2017 19:08 [facility] COMPARISON: No previous studies available for comparison. INDICATIONS : Inability to ambulate. MEDICAL HISTORY : Hypertension. Kidney CA., CVA SURGICAL HISTORY : Nephrectomy, right. Gastrectomy. ENCOUNTER: Subsequent ACUITY: 2 day PAIN SCORE: 0/10 LOCATION: cranial TECHNIQUE: Multiplanar, multisequence MRI of the brain was performed without contrast. FINDINGS: CEREBRUM: The ventricles are normal for age. No evidence of midline shift, mass lesion, hemorrhage or acute in farction. No extraaxial fluid collections are seen. The pituitary gland and suprasellar cistern are normal in configuration. WHITE MATTER: Minimal signal abnormalities are seen in the white matter. POSTERIOR FOSSA: The cerebellum and brainstem are intact. The 4th ventricle is midline. The cerebellopontine angle is unremarkable. The cerebellar tonsils are normal in position. DIFFUSION IMAGING: No focal areas of restricted diffusion are seen. No evidence of acute infarction. EXTRACRANIAL: The visualized portions of the orbits and paranasal sinuses are unremarkable. CONCLUSION: 1. No acute findings. Minimal white matter signal changes probably representing tiny areas of demyeli nization. No recent infarct. No mass, hemorrhage or shift. Ankit Fong MD on May 02, 2017 at 19:45 Board Certified Radiologist. This report was verified electronically.
[2017-05-02] MEDS ORDERED: HALOPERIDOL LACTATE 5 MG/ML AMP IM ONE (21:00)
[2017-05-02] MEDS ORDERED: diphenhydrAMINE HCL 50 MG/ML VIAL IV PUSH ONE (21:00)
[2017-05-02] MEDS ORDERED: BISACODYL 10 MG SUPP RECTAL PRN (21:30)
[2017-05-02] MEDS ORDERED: ACETAMINOPHEN 325 MG TAB PO PRN (21:30)
[2017-05-02] MEDS ORDERED: MAGNESIUM HYDROXIDE SUSP 30 ML CUP PO PRN (21:30)
[2017-05-02] MEDS ORDERED: LACTULOSE SYRUP 20 GM/30 ML CUP PO PRN (21:30)
[2017-05-02] MEDS ORDERED: SENNOSIDES 8.6 MG TAB PO PRN (21:30)
[2017-05-02] MEDS ORDERED: SODIUM CHLORIDE 0.9% FLUSH 10 ML FLUSH IV FLUSH PRN (21:30)
--- NOTE | 2017-05-02 21:30 | HHI.HP ---
[facility] Unknown Admission Diagnosis Generalized weakness with inability to ambulate Diagnoses: (1) Generalized weakness Diagnosis: Principal (2) Gait instability Diagnosis: Principal (3) Narcotic dependence Diagnosis: Principal (4) On total parenteral nutrition (TPN) Diagnosis: Principal Travel History International Travel<30 Days: No Contact w/Intl Traveler <30 Da: No Traveled to Known Affected Are: No History of Present Illness This is a 56-year-old female with PMH of Anxiety, Depression, Renal Cell CA s/p Nephrectomy, h/o Gastrectomy on TPN, Narcotic Dependence and h/o CVA who presented to the ER w/ complaints of generalized weakness and recurrent falls. Seen in ER on 05/01/17 for similar complaints, per ER notes, pt persistently requesting IV Narcotics and c/o inability to ambulate, MRI C/T/L Spine w/ mild- mod flattening of cord C5-6, otherwise negative. Pt L CBC at baseline. EFT AMA at that time. Returns now w/ ongoing complaints. States she doesn't recall leaving AMA yesterday. Pt poor historian. On arrival, BP 147/93, HR 74 , O2 sat 100% on RA. Chemistry also baseline. Troponin negative. MRI Brain tonight w/ no acute findings. Review of Systems Except as stated in HPI: all other systems reviewed are Neg ROS: 14 point review of systems otherwise negative. Past Family Social History Past Medical History PMH: Anxiety, Depression, Renal Cell CA s/p Nephrectomy, h/o Gastrectomy on TPN , Narcotic Dependence and h/o CVA Past Surgical History PAST SURGICAL HISTORY: Total Gastrectomy, Hernia Repair, Appendectomy, Cardiac Surgery, Cholecystectomy, Right Nephrectomy, Tonsillectomy Allergies: Coded Allergies: Sulfa (Sulfonamide Antibiotics) (Verified Allergy, Severe, Rash, 05/01/17) gadobenic acid (Verified Allergy, Severe, Anaphylaxis, 05/01/17) gadodiamide (Verified Allergy, Severe, Anaphylaxis, 05/01/17) gadoteridol (Verified Allergy, Severe, Anaphylaxis, 05/01/17) ketorolac (Verified Allergy, Severe, Shortness of Breath, 05/01/17) metoclopramide (Verified Allergy, Severe, Shortness of Breath, 05/01/17) morphine (Verified Allergy, Severe, Hives, 05/01/17) ondansetron (Verified Allergy, Severe, Shortness of Breath, 05/01/17) penicillin G (Verified Allergy, Severe, Rash, 05/01/17) prochlorperazine (Verified Allergy, Severe, Shortness of Breath, 05/01/17) promethazine (Verified Allergy, Severe, Shortness of Breath, 05/01/17) shellfish derived (Verified Allergy, Severe, Anaphylaxis, 05/01/17) trimethobenzamide (Verified Allergy, Severe, Shortness of Breath, 05/01/17 ) Family History PAST FAMILY HISTORY: Reviewed. No h/o DM or CAD Social History PAST SOCIAL HISTORY: Negative for alcohol, tobacco or drugs. Physical Exam Vital Signs Vital Signs Date Time Temp Pulse Resp B/P (MAP) Pulse Ox O2 Delivery O2 Flow Rate FiO2 05/02/17 18:37 98 Room Air 05/02/17 16:35 100 Room Air 05/02/17 16:28 74 20 147/93 (111) 100 Physical Exam PE: GENERAL: Middle-aged, thin, chronically ill appearing female in no acute distress, very soft spoken, difficult to understand. HEENT: PERRLA, EOMI. No scleral icterus or conjunctival pallor. No lid lag or facial droop. CARDIOVASCULAR: Regular rate and rhythm. No obvious murmurs to auscultation. No chest tenderness to palpation. RESPIRATORY: No obvious rhonchi or wheezing. Clear to auscultation. Breath sounds equal bilaterally. GASTROINTESTINAL: Abdomen soft, non-tender, nondistended. BS normal. MUSCULOSKELETAL: Extremities without clubbing, cyanosis, or edema. No obvious deformities. NEUROLOGICAL: Awake, alert and oriented x4. No focal neurologic deficits. Moving both upper and lower extremities spontaneously. Laboratory Laboratory Tests Test 05/02/17 18:00 White Blood Count 3.6 Red Blood Count 3.67 Hemoglobin 9.7 Hematocrit 29.9 Mean Corpuscular Volume 81.6 Mean Corpuscular Hemoglobin 26.5 Mean Corpuscular Hemoglobin Concent 32.5 Red Cell Distribution Width 21.2 Platelet Count 146 Mean Platelet Volume 9.5 Neutrophils (%) (Auto) 49.7 Lymphocytes (%) (Auto) 38.4 Monocytes (%) (Auto) 9.7 Eosinophils (%) (Auto) 2.1 Basophils (%) (Auto) 0.1 Neutrophils # (Auto) 1.8 Lymphocytes # (Auto) 1.4 Monocytes # (Auto) 0.3 Eosinophils # (Auto) 0.1 Basophils # (Auto) 0.0 CBC Comment DIFF FINAL Differential Comment Blood Urea Nitrogen 15 Creatinine 0.89 Random Glucose 87 Total Protein 6.8 Albumin 3.3 Calcium Level 8.4 Alkaline Phosphatase 114 Aspartate Amino Transf (AST/SGOT) 24 Alanine Aminotransferase (ALT/SGPT) 33 Total Bilirubin 0.2 Sodium Level 137 Potassium Level 4.2 Chloride Level 105 Carbon Dioxide Level 25.2 Anion Gap 7 Estimat Glomerular Filtration Rate 66 Lactic Acid Level 1.6 Troponin I LESS THAN 0.02 Date/Time Source Procedure Growth Status 05/02/17 20:00 Blood Peripheral Aerobic Blood Culture Pending Received 05/02/17 20:00 Blood Peripheral Anaerobic Blood Culture Pending Received Result Diagram: 05/02/17 1800 05/02/17 1800 Caprini VTE Risk Assessment Caprini VTE Risk Assessment: No/Low Risk (score <= 1) Caprini Risk Assessment Model Point Value = 1 Point Value = 2 Point Value = 3 Point Value = 5 Age 41-60 Minor surgery BMI > 25 kg/m2 Swollen legs Varicose veins or History of unexplained or recurrent spontaneous Oral contraceptives or hormone replacement Sepsis (< 1 month) Serious lung disease, including pneumonia (< 1 month) Abnormal pulmonary function Acute myocardial infarction Congestive heart failure (< 1 month) History of inflammatory bowel disease Medical patient at bed rest Age 61-74 Arthroscopic surgery Major open surgery (> 45 min) Laparoscopic surgery (> 45 min) Malignancy Confined to bed (> 72 hours) Immobilizing plaster cast Central venous access Age >= 75 History of VTE Family history of VTE Factor V Leiden Prothrombin [id number] Lupus anticoagulant Anticardiolipin antibodies Elevated serum homocysteine Heparin-induced thrombocytopenia Other congenital or acquired thrombophilia Stroke (< 1 month) Elective arthroplasty Hip, pelvis, or leg fracture Acute spinal cord injury (< 1 month) Prophylaxis Regimen Total Risk Factor Score Risk Level Prophylaxis Regimen 0-1 Low Early ambulation 2 Moderate Order ONE of the following: *Sequential Compression Device (SCD) *Heparin 5000 units SQ BID 3-4 Higher Order ONE of the following medications: *Heparin 5000 units SQ TID *Enoxaparin/Lovenox 40 mg SQ daily (WT < 150 kg, CrCl > 30 mL/min) *Enoxaparin/Lovenox 30 mg SQ daily (WT < 150 kg, CrCl > 10-29 mL/min) *Enoxaparin/Lovenox 30 mg SQ BID (WT < 150 kg, CrCl > 30 mL/min) AND/OR *Sequential Compression Device (SCD) 5 or more Highest Order ONE of the following medications: *Heparin 5000 units SQ TID (Preferred with Epidurals) *Enoxaparin/Lovenox 40 mg SQ daily (WT < 150 kg, CrCl > 30 mL/min) *Enoxaparin/Lovenox 30 mg SQ daily (WT < 150 kg, CrCl > 10-29 mL/min) *Enoxaparin/Lovenox 30 mg SQ BID (WT < 150 kg, CrCl > 30 mL/min) AND *Sequential Compression Device (SCD) Assessment and Plan Problem List: (1) Generalized weakness ICD Code: R53.1 - Weakness (2) Gait instability ICD Code: R26.81 - Unsteadiness on feet (3) Narcotic dependence ICD Code: F11.20 - Opioid dependence, uncomplicated (4) On total parenteral nutrition (TPN) ICD Code: Z78.9 - Other specified health status Assessment and Plan A/P: 1. Generalized Weakness: c/o ongoing generalized weakness, likely multifactorial-malnutrition and polypharmacy. Seen in ER on 05/01/17 for same, MRI C/T/L Spine w/ mild-moderate canal stenosis C5-6, otherwise normal, pt LEFT AMA at that time, however does not recall doing so. MRI Brain tonight w/ no acute findings, images reviewed by me. PT for eval/tx. 2. Gait Instability: reports inability to ambulate, MRI Spine essentially unremarkable as above. PT for eval/tx. 3. Narcotic Dependence: On multiple narcotics in addition to anxiolytics, repeatedly requesting pain medication in ER both last night and this evening, will hold Fioricet/Valium/Ambien for now. No further narcotics. 4. On TPN: h/o Gastrectomy on TPN, check CXR for line placement prior to restarting. Consult Dietary. 5. DVT Prophylaxis: SCD/Teds. 6. Social work for d/c planning as needed. 7. Case discussed w/ ER physician at length. Claudia Mcgovern MD May 02, 2017 21:30
[2017-05-02 22:20] VITALS: BP 132/76; PULSE 62; RESP 18; TEMP 97.9; O2SAT 100
--- NOTE | 2017-05-02 22:54 | RADRPT ---
EXAM DATE/TIME: 05/02/2017 22:25 [facility] COMPARISON: CHEST SINGLE AP, January 19, 2017, 13:18. INDICATIONS : Short of breath. MEDICAL HISTORY : Myocardial infarction. SURGICAL HISTORY : kidney surgery and had a blood clot that went through a hole in her heart. ENCOUNTER: Subsequent ACUITY: 1 day PAIN SCORE: 0/10 LOCATION: Bilateral chest FINDINGS: A single view of the chest demonstrates the lungs to be symmetrically aerated without evidence of mas s, infiltrate or effusion. The cardiomediastinal contours are unremarkable. Osseous structures are intact. CONCLUSION: 1. Minimal basilar atelectasis. No effusion or pneumothorax. Ankit Fong MD on May 02, 2017 at 22:50 Board Certified Radiologist. This report was verified electronically.
[2017-05-02] MEDS: oxyCODONE HCL 10 MG CONTROLLED RELEASE TAB PO SCH (23:07)
[2017-05-02] MEDS: SODIUM CHLOR 0.9% 1000 ML INJ 1,000 ML IV SCH (23:08)
[2017-05-02 23:09] VITALS: BP 121/58; PULSE 62; RESP 18; TEMP 98.7; O2SAT 97
[2017-05-03] MEDS: oxyCODONE HCL 10 MG CONTROLLED RELEASE TAB PO SCH ×3 (06:01→22:43)
[2017-05-03 06:27] VITALS: BP_SYST 122; BP_SYST 131; BP_DIAS 68; BP_DIAS 78; PULSE 68; RESP 18; TEMP 98.7; O2SAT 97
[2017-05-03] MEDS: SODIUM CHLOR 0.9% 1000 ML INJ 1,000 ML IV SCH ×2 (07:25→17:25)
[2017-05-03] MEDS: busPIRone HCL 10 MG TAB PO SCH ×3 (08:31→18:08)
[2017-05-03] MEDS: DICYCLOMINE HCL 20 MG TAB PO SCH ×3 (08:32→18:08)
[2017-05-03] MEDS: SERTRALINE HCL 50 MG TAB PO SCH (08:32)
[2017-05-03] MEDS: DOCUSATE SODIUM 50 MG/SENNA 8.6 MG TAB PO SCH ×2 (08:32→22:43)
[2017-05-03] MEDS: MAGNESIUM OXIDE 400 MG TAB PO SCH ×2 (08:33→20:03)
[2017-05-03] MEDS: SODIUM CHLORIDE 0.9% FLUSH 10 ML FLUSH IV FLUSH SCH ×2 (08:33→20:03)
[2017-05-03 08:59] VITALS: BP 155/87; PULSE 63; RESP 20; TEMP 98.2; O2SAT 100
--- NOTE | 2017-05-03 10:33 | HHI.PR ---
Subjective Remarks Patient says she is feeling generally unwell. Reports generalized fatigue. Poor appetite for many months. Finished TPN 2 months ago. Reports chronic abdominal pain. Requests to see Dr. Keen. She reports dizziness, which is difficult to describe, but does not describe room spinning. Objective Vital Signs Date Time Temp Pulse Resp B/P (MAP) Pulse Ox O2 Delivery O2 Flow Rate FiO2 05/03/17 08:59 98.2 63 20 155/87 (109) 100 05/03/17 07:05 22 05/03/17 06:27 98.7 68 18 122/68 (86) 97 05/02/17 23:09 98.7 62 18 121/58 (79) 97 05/02/17 22:21 05/02/17 22:20 97.9 62 18 132/76 (94) 100 05/02/17 19:00 82 16 136/74 (94) 97 Room Air 05/02/17 18:37 98 Room Air 05/02/17 16:35 100 Room Air 05/02/17 16:28 74 20 147/93 (111) 100 Result Diagram: 05/02/17 1800 05/02/17 1800 Objective Remarks GENERAL: Cachectic. Patient sitting up in bed. Ears comfortable SKIN: Warm and dry. HEAD: Normocephalic. EYES: No scleral icterus. No injection or drainage. NECK: Supple, trachea midline. No JVD. CARDIOVASCULAR: Regular rate and rhythm without murmurs, gallops, or rubs. RESPIRATORY: Breath sounds equal bilaterally. No accessory muscle use. GASTROINTESTINAL: Abdomen soft, non-tender, nondistended. MUSCULOSKELETAL: No cyanosis, or edema. BACK: Nontender without obvious deformity. No CVA tenderness. A/P Assessment and Plan // Generalized Weakness: c/o ongoing generalized weakness, likely multifactorial-malnutrition and polypharmacy. Seen in ER on 05/01/17 for same, MRI C/T/L Spine w/ mild-moderate canal stenosis C5-6, otherwise normal, pt LEFT AMA at that time, however does not recall doing so. MRI Brain tonight w/ no acute findings, images reviewed by me. PT for eval/tx. = All look PT recommendations. //Gait Instability: reports inability to ambulate, MRI Spine essentially unremarkable as above. PT for eval/tx. = Neurology consult pending. //Narcotic Dependence: On multiple narcotics in addition to anxiolytics, repeatedly requesting pain medication in ER both last night and this evening, will hold Fioricet/Valium/Ambien for now. No further narcotics. = Discussed with nurse who will verify home medications. His cussed at length the patient. Do not feel narcotics are helping her nausea or appetite. //TSH 0.1. Low. Recheck. //On TPN: h/o Gastrectomy on TPN, check CXR for line placement prior to restarting. Consult Dietary. = Patient completed TPN over month ago. Gastroenterology consult //DVT Prophylaxis: SCD/Teds. Discharge Planning Pending neurology consultation Pending gastroenterology consultation pending PT evaluation. Patient may need rehabilitation.. Natalio Ford MD May 03, 2017 10:33
[2017-05-03] MEDS ORDERED: MULTIVITAMIN TAB PO ONE (11:00)
[2017-05-03] MEDS ORDERED: CYANOCOBALAMIN 1,000 MCG TAB PO ONE (11:00)
[2017-05-03] MEDS ORDERED: DULO20 PO (11:11)
[2017-05-03] MEDS ORDERED: HALO20TA PO (11:11)
[2017-05-03 11:13] VITALS: BP 119/69; PULSE 88; RESP 20; TEMP 98.6; O2SAT 100
[2017-05-03 12:04] LABS: AUTOMATED NEUTROPHIL # 1.3 TH/MM3 (1.8-7.7); BASOPHIL % 0.1 % (0.0-2.0); EOSINOPHIL # 0.1 TH/MM3 (0-0.4); EOSINOPHIL % 3.3 % (0.0-4.0); HEMATOCRIT 29.9 % (35.0-46.0); HEMO FLAGS DIFF FINAL; LYMPH % 42.9 % (9.0-44.0); LYMPHOCYTE # 1.3 TH/MM3 (1.0-4.8); MEAN CELL VOLUME 80.7 FL (80.0-100.0); MEAN CORPUSCULAR HEMOGLOBIN 26.1 PG (27.0-34.0); MEAN CORPUSCULAR HGB CONC 32.3 % (32.0-36.0); MONO % 10.7 % (0.0-8.0); PLATELET COUNT 133 TH/MM3 (150-450); RED BLOOD COUNT 3.71 MIL/MM3 (4.00-5.30); RED CELL DISTRIBUTION WIDTH 20.6 % (11.6-17.2)
[2017-05-03 12:21] LABS: ALT (GPT) 31 U/L (10-53); ANION GAP 9 MEQ/L (5-15); AST (GOT) 26 U/L (15-37); BLOOD UREA NITROGEN 10 MG/DL (7-18); CHLORIDE 108 MEQ/L (98-107); GLOMERULAR FILTRATION RATE 64 ML/MIN (>89); POTASSIUM 3.4 MEQ/L (3.5-5.1); SODIUM (NA) 142 MEQ/L (136-145)
[2017-05-03 12:29] LABS: FREE T4 0.75 NG/DL (0.76-1.46)
[2017-05-03 12:42] LABS: ALKALINE PHOSPHATASE 99 U/L (45-117); TOTAL BILIRUBIN ADULT 0.1 MG/DL (0.2-1.0)
[2017-05-03] MEDS ORDERED: ZOLP12.5 PO (13:15)
[2017-05-03] MEDS ORDERED: NORT75CA PO (13:15)
[2017-05-03 16:53] VITALS: BP 127/78; PULSE 77; RESP 20; TEMP 98.4; O2SAT 97
--- NOTE | 2017-05-03 18:55 | MB ---
cc: JESSENIA SANCHEZ DATE OF CONSULTATION 05/03/2017 DATE OF 1960 REASON FOR GI CONSULTATION Evaluation of anorexia, history of weight loss. HISTORY OF PRESENT ILLNESS The patient is known to us. She has a long history of chronic abdominal discomfort. She has had multiple surgeries including renal cell CA, previous nephrectomy, history of gastrectomy, narcotic use and dependence, history of previous CVA. The patient has had several admissions to this institution. She has been evaluated by the undersigned with upper endoscopy which was benign. She is status post previous gastrectomy. She has had lower GI evaluation by Dr. Charles's group. She has had a previous imaging studies and evaluation of her chronic abdominal pain, weight loss and poor GI motility. She states she is moving her bowels. Her appetite has been chronically suppressed. She has depression and anxiety as well. Some of her GI dysmotility maybe related to her narcotic use. She presented to the emergency room with inability to ambulate, feeling unsteady with a vertigo like effect. Her mentation also has deteriorated. She has been forgetful and confused. She is undergoing a neurological workup at this time with imaging studies, etc. As previously stated she has had a previous history of weight loss, anorexia. Her weight is currently at 88 pounds. To my knowledge when we had last seen her she was around 90 pounds and actually she was given a course of TPN via PICC line because of her decreased weight, BMI and malnutrition. She did increase at least 10 pounds with TPN up to 90 pounds. She presented to the emergency room the day before yesterday and today for similar complaints. MRI of brain and did not reveal any acute findings. PAST MEDICAL HISTORY Her past history includes: 1. Anxiety. 2. Depression. 3. Renal cell cancer. 4. Previous gastrectomy. 5. Appendectomy. ALLERGIES THERE ARE MULTIPLE ALLERGIES INCLUDING MORPHINE, REGLAN, ONDANSETRON, PENICILLIN, PROCARBAZINE, PROMETHAZINE, SULFA, KETOROLAC, TRIMETHOBENZAMIDE. FAMILY HISTORY Noncontributory. SOCIAL HISTORY Denies smoking or alcohol or illicit drug use. REVIEW OF SYSTEMS A 12-point review of systems as stated the HPI. PHYSICAL EXAMINATION GENERAL: Thin, chronically ill-appearing female, alert in no acute distress. VITAL SIGNS: Stable. She is afebrile. HEENT: Exam normocephalic. Sclerae anicteric. Oral mucosa dry. Poor dentition is noted. NECK: Supple. CARDIOVASCULAR: S1-S2. LUNGS: Chest is clear. ABDOMEN: The abdomen soft, nontender. Multiple surgical scars are noted. Bowel sounds are present. No masses. EXTREMITIES: Without clubbing, cyanosis or edema. Muscle wasting is noted. IMPRESSION A 56-year-old female with ongoing neurological complaints with confusion, difficulty with mentation, with vertigo like symptoms, etc. Currently undergoing neurologic evaluation. The patient has had anorexia and weight loss. She has chronic abdominal pain. She has had multiple examinations and studies in evaluation of her problems from a GI standpoint these seem to be about the same. Her weight is holding at 88 pounds. She has had upper and lower endoscopy. She has had a motility study of the GI tract which showed poor gastric motility in the past. PLAN Would try to optimize her nutrition. We could consider Megace therapy to increase her p.o. intake. Ultimately if she deteriorates further, repeat TPN could be considered but would hold off for now. I have discussed with the patient. It is noted the patient's TSH is quite low and a cortisol level was low, this may be addressed by her medicaid analyst or the general medical physician as well. We will be glad to follow the patient as an outpatient after she is discharged. I see no immediate need for any endoscopic workup at this time. Thank you kindly for this consultation. MD ANDREWS Lipscomb/PATRICIO /5:41 PM /6:17 PM
--- NOTE | 2017-05-03 20:45 | MB ---
cc: WERO LOPEZ MD DATE OF CONSULTATION 05/03/2017 REASON FOR CONSULTATION ( Bilateral lower extremity weakness, falls. MRI with demyelinization ). HISTORY OF PRESENT ILLNESS Ms. Alcala is a 56-year-old female with past medical history of anxiety, depression, renal cell carcinoma status post nephrectomy, history of gastrectomy, on TPA and narcotic dependence and history of stroke with mild left-sided lower extremity weakness presented to the [facility] because of generalized weakness and recurrent falls. She was initially seen in the [facility] Emergency Room on 05/01/2017. The patient persistently requested IV narcotics and she left against medical advice. Returned the next day and she states that she does not recall leaving AMA. She was there for the same complaint. The patient states that she has fallen several times because of occasional feeling lightheaded and sometimes her legs give out on her. She denies headache, double vision, blurred vision, slurred speech, disorientation, speech difficulty, convulsions, epilepsy or loss of consciousness. She has a history of remote stroke that she states that she is only left with mild residual left lower extremity weakness mainly affecting the left foot. REVIEW OF SYSTEMS Next a 12-point review of systems is negative except for what is stated in the HPI. PAST MEDICAL HISTORY 1. Anxiety, depression. 2. Renal cell carcinoma. 3. Narcotic dependence. 4. History of stroke with residual mild left-sided lower extremity weakness. PAST SURGICAL HISTORY 1. Total gastrectomy. 2. Hernia repair. 3. Appendectomy. 4. Cardiac surgery. 5. Cholecystectomy. 6. Right nephrectomy. 7. Tonsillectomy. ALLERGIES SULFA, GADOBENIC ACID, GADOTERIDOL, GADODIAMIDE, KETOROLAC, METOCLOPRAMIDE, MORPHINE, ONDANSETRON, PENICILLIN-G, PROCHLORPERAZINE, PROMETHAZINE, SHELLFISH. TRIMETHOBENZAMIDE. FAMILY HISTORY Noncontributory. SOCIAL HISTORY Negative for alcohol, tobacco or drug abuse. MEDICATIONS Reviewed, as per medical records. PHYSICAL EXAMINATION GENERAL: Lays in bed, anxious, chronically ill appearing, very thin. Cachectic. HEENT: Atraumatic, normocephalic. Intact hearing. Intact vision. CARDIOVASCULAR: Regular rate and rhythm. RESPIRATORY: Clear to auscultation. No wheezes. GASTROINTESTINAL: Soft abdomen, nontender. EXTREMITIES: Mild deformities. No cyanosis. NEUROLOGIC: Awake, alert, oriented to time, person and place. No dysarthria. No dysphagia. Intact external ocular motility. No nystagmus. No diplopia. Intact facial sensation. No facial asymmetry. Muscle strength, there is a lot of give-way due to lack of cooperation and pain but generally nonfocal. Generalized muscle wasting without fasciculation upper extremity bilateral grossly 5/5 with a lot of give-way due to pain and lack of cooperation. No abnormal movements. Lower extremity, left lower extremity grade 5-, left hip flexion grade 4-, left foot dorsiflexion grade 5-, left knee extension, right lower extremity grade 5-, right hip flexion. Otherwise grade 5/5 with give-way reflexes. 1+ bilateral symmetrical. Plantar bilaterally downgoing. Sensation is intact throughout the intact [id number] test. LABORATORY DATA Diagnostic tests, labs, sodium 142, potassium 3.4, BUN 10, creatinine 0.91. Normal LFTs. Albumin 3.2. TSH very low at 0.084. White blood cells 3, hemoglobin 9.7, platelets 133. IMAGING STUDIES Diagnostic imaging, review of the diagnostic imaging revealed: -Cervical spine MRI without contrast. A C5-6 level [id number] AP canal stenosis with mild flattening of the cord. Less severe degenerative changes in the remainder of the cervical spine. No cord signal abnormality. Alignment is within normal limits. - Lumbar spine and thoracic spine MRI were reported with no acute findings and no canal stenosis, mild degenerative disk disease with no significant cord compression. - Brain MRI without contrast revealed no acute findings, minimal white matter changes. No recent infarct or hemorrhage. DIAGNOSTIC IMPRESSION 1. History of remote stroke with residual mild left lower extremity weakness and foot drop. 2. Generalized weakness, likely due to malnutrition. 3. Narcotic dependence and polypharmacy. 4. Multiple falls Likely due to generalized weakness, malnutrition, polypharmacy. 5. Very low TSH. 6. History of nephrectomy status post renal cancer. 7. History of total gastrectomy. 8. Anemia. PLAN 1. Examination is nonfocal and the abnormal physical findings are chronic with neurological investigation that did not reveal any acute central nervous system abnormality or pathology. 2. I reviewed the MRI and the white matter changes are essentially due to nonspecific white matter ischemic changes. 3. The patient needs supportive medical therapy. 4. Consult child nutrition assistant. 5. Fall precautions. 6. Inpatient rehab. 7. Education about narcotics abuse. 8. DVT prophylaxis. 9. The patient will need follow-up as an outpatient. 10. No need for further neurologic workup. 11. Please call for questions. Thank you for the opportunity to participate in the care of your patient. id MD WILLIAM Lyons/PATRICIO /7:49 PM /8:11 PM MTDD
[2017-05-03 21:15] VITALS: BP 118/73; PULSE 69; RESP 18; TEMP 98.5; O2SAT 97
[2017-05-03 22:32] LABS: BACTERIA, URINE MOD /hpf; BLOOD, URINE NEG (NEG); GLUCOSE,URINE NEG (NEG); KETONE, URINE NEG (NEG); NITRITE,URINE POS (NEG); SQUAMOUS EPITHELIAL CELL URINE 4 /hpf (0-5); TRANSITIONAL EPI CELLS, URINE 1 /hpf; URINE COLOR LIGHT-YELLOW (YELLW/STRAW)
[2017-05-03 22:33] LABS: COMMENT (UR) CATH-CULTURE IND; CULTURE IF INDICATED CATH CULTURE IND
[2017-05-04 00:33] VITALS: BP 124/71; PULSE 84; RESP 18; TEMP 97.9; O2SAT 95
[2017-05-04 05:40] VITALS: BP 120/75; PULSE 69; RESP 18; TEMP 98.2; O2SAT 96
[2017-05-04] MEDS: oxyCODONE HCL 10 MG CONTROLLED RELEASE TAB PO SCH (05:50)
[2017-05-04] MEDS: SODIUM CHLOR 0.9% 1000 ML INJ 1,000 ML IV SCH ×2 (05:53→13:35)
[2017-05-04 08:49] VITALS: BP 120/78; PULSE 70; RESP 19; TEMP 98.2; O2SAT 98
[2017-05-04] MEDS: CYANOCOBALAMIN 1,000 MCG TAB PO SCH (09:00)
[2017-05-04] MEDS: SODIUM CHLORIDE 0.9% FLUSH 10 ML FLUSH IV FLUSH SCH ×2 (09:00→20:49)
[2017-05-04] MEDS ORDERED: MEGESTROL ACETATE 40 MG TAB PO ONE (10:00)
--- NOTE | 2017-05-04 10:00 | HHI.PR ---
Subjective Remarks Patient says she is feeling a little bit better today. Denies any chest pain or shortness of breath. Denies any nausea or vomiting. Says her appetite has improved slightly. She feels like she needs to go to rehabilitation, cannot take care of herself at home. Objective Vital Signs Date Time Temp Pulse Resp B/P (MAP) Pulse Ox O2 Delivery O2 Flow Rate FiO2 05/04/17 08:49 98.2 70 19 120/78 (92) 98 05/04/17 06:55 16 05/04/17 05:40 98.2 69 18 120/75 (90) 96 05/04/17 00:33 97.9 84 18 124/71 (88) 95 05/03/17 21:15 98.5 69 18 118/73 (88) 97 05/03/17 16:53 98.4 77 20 127/78 (94) 97 05/03/17 11:13 98.6 88 20 119/69 (86) 100 I/O 05/03/17 05/03/17 05/03/17 05/04/17 05/04/17 05/04/17 07:00 15:00 23:00 07:00 15:00 23:00 Intake Total 780 ml Balance 780 ml Intake Oral 780 ml # Voids 2 Result Diagram: 05/03/17 1139 05/03/17 1139 Objective Remarks GENERAL: Cachectic. Patient sitting up in bed. Appears comfortable. SKIN: Warm and dry. HEAD: Normocephalic. EYES: No scleral icterus. No injection or drainage. NECK: Supple, trachea midline. No JVD. CARDIOVASCULAR: Regular rate and rhythm without murmurs, gallops, or rubs. RESPIRATORY: Breath sounds equal bilaterally. No accessory muscle use. GASTROINTESTINAL: Abdomen soft, non-tender, nondistended. MUSCULOSKELETAL: No cyanosis, or edema. BACK: Nontender without obvious deformity. No CVA tenderness. A/P Assessment and Plan // Generalized Weakness: c/o ongoing generalized weakness, likely multifactorial-malnutrition and polypharmacy. Seen in ER on 05/01/17 for same, MRI C/T/L Spine w/ mild-moderate canal stenosis C5-6, otherwise normal, pt LEFT AMA at that time, however does not recall doing so. MRI Brain tonight w/ no acute findings, images reviewed by me. PT for eval/tx. = PT recommends home health, however patient does not feel she will be able to go home. She would like to rehabilitation. I discussed with gastroenterology yesterday, and they recommend not doing TPN that by mouth intake should be sufficient. Recommend going off narcotics. We'll wean narcotics. //Severe nutrition. BMI 16.0. Possibly related to loose brown toxicity. We' ll decrease dose of buspirone. //Gait Instability: reports inability to ambulate, MRI Spine essentially unremarkable as above. PT for eval/tx. = Neurology assistance appreciated. MRI changes do not explain generalized weakness. //Leukopenia with neutropenia worsening home 0.3 yesterday. We'll consult oncology. //Narcotic Dependence: On multiple narcotics in addition to anxiolytics, repeatedly requesting pain medication in ER both last night and this evening, will hold Fioricet/Valium/Ambien for now. No further narcotics. = Discussed with nurse who will verify home medications. His cussed at length the patient. Do not feel narcotics are helping her nausea or appetite. //euThyroid sick. -Patient with low TSH 0.1, normal T3, low T4 . Prolactin slightly high, can be a primary or secondary. We'll recheck. Did discuss right brain with radiologist on 05/03, and no concerning hypothalamic/pituitary findings. //DVT Prophylaxis: SCD/Teds. Discharge Planning Worsening leukopenia. Oncology consult pending. Patient will need rehabilitation. Natalio Ford MD May 04, 2017 10:00
[2017-05-04] MEDS: MULTIVITAMIN TAB PO SCH (10:19)
[2017-05-04] MEDS: DOCUSATE SODIUM 50 MG/SENNA 8.6 MG TAB PO SCH ×2 (10:20→20:48)
[2017-05-04] MEDS: DICYCLOMINE HCL 20 MG TAB PO SCH ×3 (10:20→18:25)
[2017-05-04] MEDS: MAGNESIUM OXIDE 400 MG TAB PO SCH ×2 (10:20→20:46)
[2017-05-04] MEDS: SERTRALINE HCL 50 MG TAB PO SCH (10:21)
[2017-05-04] MEDS: CHOLECALCIFEROL (VIT D3) 5000 UNIT CAP PO SCH (10:21)
[2017-05-04 11:38] VITALS: BP 123/93; PULSE 75; RESP 20; TEMP 98; O2SAT 97
--- NOTE | 2017-05-04 12:42 | HHI.GIFU ---
Subjective Remarks Feeling better today tolerating po and hungry NAD Objective Vitals I&O Vital Signs Date Time Temp Pulse Resp B/P (MAP) Pulse Ox O2 Delivery O2 Flow Rate FiO2 05/04/17 11:38 98.0 75 20 123/93 (103) 97 05/04/17 08:49 98.2 70 19 120/78 (92) 98 05/04/17 06:55 16 05/04/17 05:40 98.2 69 18 120/75 (90) 96 05/04/17 00:33 97.9 84 18 124/71 (88) 95 05/03/17 21:15 98.5 69 18 118/73 (88) 97 05/03/17 16:53 98.4 77 20 127/78 (94) 97 I/O 05/03/17 05/03/17 05/03/17 05/04/17 05/04/17 05/04/17 07:00 15:00 23:00 07:00 15:00 23:00 Intake Total 780 ml Balance 780 ml Intake Oral 780 ml # Voids 2 Laboratory Laboratory Tests Test 05/03/17 21:58 Urine Color LIGHT-YELLOW Urine Turbidity HAZY Urine pH 6.0 Urine Specific Palmer 1.016 Urine Protein NEG Urine Glucose (UA) NEG Urine Ketones NEG Urine Occult Blood NEG Urine Nitrite POS Urine Bilirubin NEG Urine Urobilinogen LESS THAN 2.0 Urine Leukocyte Esterase LARGE Urine RBC 4 Urine WBC 104 Urine Squamous Epithelial Cells 4 Urine Transitional Epithelial Cells 1 Urine Bacteria MOD Microscopic Urinalysis Comment CATH-CULTURE IND Urine Opiates Screen NEG Urine Barbiturates Screen POS Urine Amphetamines Screen NEG Urine Benzodiazepines Screen POS Urine Cocaine Screen NEG Urine Cannabinoids Screen NEG Date/Time Source Procedure Growth Status 05/02/17 20:00 Blood Peripheral Aerobic Blood Culture - Preliminary NO GROWTH IN 2 DAYS Resulted 05/02/17 20:00 Blood Peripheral Anaerobic Blood Culture - Preliminary NO GROWTH IN 2 DAYS Resulted 05/03/17 21:58 Urine Catheterized Urine Urine Culture Pending Received Physical Exam NECK: Neck is supple, no JVD, no lymphadenopathy. CHEST: Chest is clear to auscultation and percussion. CARDIAC: Regular rate and rhythm with no murmur gallop or rubs. ABDOMEN: Soft, nondistended, nontender; no hepatosplenomegaly; bowel sounds are present in all four quadrants. EXTREMITIES: No clubbing, cyanosis, or edema. Assessment and Plan Assessment: (1) Chronic abdominal pain ICD Codes: R10.9 - Unspecified abdominal pain; G89.29 - Other chronic pain Status: Acute (2) Gastroparesis ICD Codes: K31.84 - Gastroparesis Status: Acute (3) Narcotic dependence ICD Codes: F11.20 - Opioid dependence, uncomplicated Plan Discussed case w medical staff... if po intake is poor consider megace therapy as well. Pt has had GI w/u and evaluation.. could also consider a trial of pancreatic enzymes if abdominal pain recurs .will f/u after d/c thanks Bradley Keen MD May 04, 2017 12:42
[2017-05-04 13:54] LABS: AUTOMATED NEUTROPHIL # 1.6 TH/MM3 (1.8-7.7); BASOPHIL % 0.1 % (0.0-2.0); EOSINOPHIL # 0.1 TH/MM3 (0-0.4); EOSINOPHIL % 3.6 % (0.0-4.0); HEMATOCRIT 31.5 % (35.0-46.0); HEMO FLAGS DIFF FINAL; LYMPH % 44.1 % (9.0-44.0); LYMPHOCYTE # 1.7 TH/MM3 (1.0-4.8); MEAN CELL VOLUME 81.6 FL (80.0-100.0); MEAN CORPUSCULAR HEMOGLOBIN 26.1 PG (27.0-34.0); MONO % 12.3 % (0.0-8.0); NEUT % 39.9 % (16.0-70.0); PLATELET COUNT 134 TH/MM3 (150-450); RED BLOOD COUNT 3.86 MIL/MM3 (4.00-5.30); WHITE BLOOD COUNT 3.9 TH/MM3 (4.0-11.0)
[2017-05-04 14:15] LABS: ALT (GPT) 29 U/L (10-53); ANION GAP 5 MEQ/L (5-15); AST (GOT) 26 U/L (15-37); BICARBONATE 24.7 MEQ/L (21.0-32.0); BLOOD UREA NITROGEN 11 MG/DL (7-18); CHLORIDE 107 MEQ/L (98-107); GLOMERULAR FILTRATION RATE 85 ML/MIN (>89); POTASSIUM 4.2 MEQ/L (3.5-5.1); SODIUM (NA) 137 MEQ/L (136-145)
[2017-05-04 14:17] LABS: ALKALINE PHOSPHATASE 105 U/L (45-117); TOTAL BILIRUBIN ADULT 0.1 MG/DL (0.2-1.0)
[2017-05-04 15:53] VITALS: BP 132/75; PULSE 78; RESP 20; TEMP 98; O2SAT 97
[2017-05-04] MEDS: cefTRIAXone INJ 1,000 MG in SODIUM CHLORIDE 0.9% INJ 100 ML IV SCH (16:18)
[2017-05-04] MEDS: ACETAMIN 325 MG/BUTALBITAL 50 MG/CAFFEINE 40 MG TAB PO PRN (16:18)
--- NOTE | 2017-05-04 18:24 | MB ---
cc: CHANELL SANCHEZ MD DATE OF CONSULTATION 05/04/[address] Ford REASON FOR CONSULTATION Hematology is consulted to render opinion regarding patient with pancytopenia. HISTORY OF PRESENT ILLNESS The patient is a very pleasant 56-year-old female with very complex medical problems admitted to the hospital with complaint of increased lower extremity numbness and difficulty ambulating. She has fallen a few times. She also have a tremor. She had history of total gastrectomy and has malnutrition. She has lost significant amount of weight. She was started on TPN for about a month and gained 10 pounds. She is also had been giving herself B12 injection and thiamine supplement. She denies any fever or chills. She has no chest pain, shortness of breath or cough. She has had dry heaves occasionally. Denies any change in bowel movement, denies any melena, hematochezia, any dysuria or hematuria. PAST MEDICAL HISTORY 1. Renal cell carcinoma in 2004 2. Stroke after nephrectomy surgery. 3. Depression, anxiety. 4. Chronic aspiration prior to her gastrectomy 5. Myocardial function 6. B12 deficiency. PAST SURGICAL HISTORY 1. Right nephrectomy 2. Total gastrectomy 2004 3. Fundoplication twice before the gastrectomy 4. Hernia repair. 5. Appendectomy 6. Cholecystectomy. 7. Tonsillectomy. 8. Repair of perforated foramen ovale. FAMILY HISTORY Noncontributory. SOCIAL HISTORY Denies tobacco or alcohol use. ALLERGIES Multiple allergies documented in the chart. MEDICATIONS 1. BuSpar 2. Megace 3. Ceftriaxone. 4. Fioricet. 5. Roxicodone 6. B12. 7. Multivitamin 8. Vitamin D3 9. Ivonne-Colace. 10. Bentyl 11. Magnesium oxide 12. Zoloft REVIEW OF SYSTEMS CONSTITUTIONAL: As above. EYES: Negative. ENT: Negative. CARDIOVASCULAR: Denies chest pressure, palpitation RESPIRATORY: Denies any shortness of breath, cough. GI: As above. : Negative. MUSCULOSKELETAL: Has chronic pain HEMATOLOGY: As above. ENDOCRINE: Negative DERMATOLOGY: Negative. PSYCHIATRIC: Negative. NEUROLOGIC: As above. PHYSICAL EXAMINATION VITAL SIGNS: Temperature 98, blood pressure 132/75, O2 saturation 97%. GENERAL: She is alert, oriented x3. Cachectic. HEENT: Atraumatic, normocephalic. Pupils equal, round and reactive to light. Extraocular muscles intact. No scleral icterus. Oropharynx dry mucosa. No lesion. NECK: No thyromegaly. No palpable masses. LYMPHATICS: No palpable cervical, clavicular, axillary or inguinal lymph node CARDIOVASCULAR: Regular S1-S2, no murmur. LUNGS: Clear to auscultation bilaterally. ABDOMEN: Soft. There is a little soreness. I could not palpate liver or spleen. EXTREMITIES: No cyanosis, clubbing or edema. BACK: No paravertebral tenderness. SKIN: No rash or petechiae. NEUROLOGIC: Nonfocal. LABORATORY DATA Laboratory data reviewed ASSESSMENT 1. Pancytopenia. Her blood count has been fluctuating the last several months. I think she likely has low blood count due to nutrition deficiency. Her recent drop in blood count may be due to the urinary tract infection and transient bone marrow suppression. She has no evidence of active bleeding noted. She is not neutropenic. I am going to check her iron study and vitamin study. Continue to monitor CBC for now. 2. History of TTP. She stated she had plasmapheresis about six years ago when she developed low platelet count. She did not have an confirmed diagnosis of TTP. Her platelet count is only slightly low. There is no evidence of TTP. 3. B12 deficiency and vitamin deficiency due to history of total gastrectomy. She has been self administering a B12 injection monthly as well as thiamine weekly. We will check a vitamin study as above. 4. History of renal cell carcinoma status post right nephrectomy in 2004. She did not require any adjuvant therapy. 5. Malnutrition due to total gastrectomy. She was on TPN for a month and gained 10 pounds. TPN has been discontinued 6. History of stroke. 7. History of myocardial function. PLAN 1. Proceed with laboratory evaluation outlined as above. 2. Monitor CBC. 3. Discussed with the patient and her . Thank you, Dr. Ford, for asking me to see this patient. MD LOGAN Castillo/ /5:27 PM /5:49 PM KRISTINA
[2017-05-04 20:35] VITALS: BP 130/80; PULSE 77; RESP 18; TEMP 97.6; O2SAT 98
[2017-05-04] MEDS: MEGESTROL ACETATE 40 MG TAB PO SCH (20:46)
[2017-05-04] MEDS: busPIRone HCL 10 MG TAB PO SCH (20:48)
[2017-05-05] VITALS (11 sets, daily range): BP systolic 112–194; BP diastolic 70–100; PULSE 64–83; RESP 12–20; TEMP 97.6–99; O2SAT 96–100
[2017-05-05] MEDS: ACETAMIN 325 MG/BUTALBITAL 50 MG/CAFFEINE 40 MG TAB PO PRN ×3 (00:21→15:56)
[2017-05-05] MEDS: SODIUM CHLOR 0.9% 1000 ML INJ 1,000 ML IV SCH ×3 (02:57→15:58)
[2017-05-05] MEDS: busPIRone HCL 10 MG TAB PO SCH ×3 (05:23→22:15)
[2017-05-05 08:13] LABS: AUTOMATED NEUTROPHIL # 1.5 TH/MM3 (1.8-7.7); BASOPHIL % 0.1 % (0.0-2.0); EOSINOPHIL # 0.1 TH/MM3 (0-0.4); EOSINOPHIL % 3.8 % (0.0-4.0); HEMO FLAGS DIFF FINAL; LYMPH % 37.7 % (9.0-44.0); LYMPHOCYTE # 1.2 TH/MM3 (1.0-4.8); MEAN CELL VOLUME 80.3 FL (80.0-100.0); MEAN CORPUSCULAR HEMOGLOBIN 25.3 PG (27.0-34.0); MEAN CORPUSCULAR HGB CONC 31.5 % (32.0-36.0); MONO % 7.9 % (0.0-8.0); NEUT % 50.5 % (16.0-70.0); PLATELET COUNT 119 TH/MM3 (150-450); RED BLOOD COUNT 3.74 MIL/MM3 (4.00-5.30); RED CELL DISTRIBUTION WIDTH 20.7 % (11.6-17.2); RETIC % 0.6 % (0.4-3.0); REVIEW FLAG FINAL; WHITE BLOOD COUNT 3.1 TH/MM3 (4.0-11.0)
[2017-05-05] MEDS: SODIUM CHLORIDE 0.9% FLUSH 10 ML FLUSH IV FLUSH SCH ×2 (08:17→21:00)
[2017-05-05] MEDS: MAGNESIUM OXIDE 400 MG TAB PO SCH ×2 (08:18→22:16)
[2017-05-05] MEDS: CHOLECALCIFEROL (VIT D3) 5000 UNIT CAP PO SCH (08:18)
[2017-05-05] MEDS: MEGESTROL ACETATE 40 MG TAB PO SCH ×2 (08:18→22:39)
[2017-05-05] MEDS: DOCUSATE SODIUM 50 MG/SENNA 8.6 MG TAB PO SCH ×2 (08:18→22:15)
[2017-05-05] MEDS: SERTRALINE HCL 50 MG TAB PO SCH (08:18)
[2017-05-05] MEDS: DICYCLOMINE HCL 20 MG TAB PO SCH ×3 (08:18→18:50)
[2017-05-05] MEDS: MULTIVITAMIN TAB PO SCH (08:18)
[2017-05-05] MEDS: CYANOCOBALAMIN 1,000 MCG TAB PO SCH (08:19)
[2017-05-05 08:41] LABS: LDH SERUM 133 U/L (84-246); TRANSFERRIN IRON PROFILE 311 MG/DL (200-360)
[2017-05-05] MEDS ORDERED: CYANOCOBALAMIN 1000 MCG/ML VIAL IM ONE (09:00)
[2017-05-05] MEDS ORDERED: THIAMINE INJ 100 MG in SODIUM CHLORIDE 0.9% INJ 100 ML IV ONE (09:00)
[2017-05-05 09:06] LABS: FERRITIN 6 NG/ML (8-252)
--- NOTE | 2017-05-05 11:03 | RADRPT ---
EXAM DATE/TIME: 05/05/2017 10:52 [facility] COMPARISON: CT BRAIN W/O CONTRAST, August 12, 2016, 16:39. INDICATIONS : Left sided extremity weakness. RADIATION DOSE: 31.47 CTDIvol (mGy) This report was called to at 10: 59 AM. MEDICAL HISTORY : Seizures. Cardiovascular disease Hypertension.Renal cancer. SURGICAL HISTORY : Nephrectomy, right. ENCOUNTER: Initial ACUITY: 1 day PAIN SCALE: Non-responsive LOCATION: cranial TECHNIQUE: Multiple contiguous axial images were obtained of the head. Using automated exposure control and adj ustment of the mA and/or kV according to patient size, radiation dose was kept as low as reasonably a chievable to obtain optimal diagnostic quality images. DICOM format image data is available electro nically for review and comparison. FINDINGS: CEREBRUM: The ventricles are normal for age. No evidence of midline shift, mass lesion, hemorrhage or acute in farction. No extra-axial fluid collections are seen. POSTERIOR FOSSA: The cerebellum and brainstem are intact. The 4th ventricle is midline. The cerebellopontine angle i s unremarkable. EXTRACRANIAL: The visualized portion of the orbits is intact. SKULL: The calvaria is intact. No evidence of skull fracture. CONCLUSION: Negative for acute process. Ash Chinchilla MD FACR on May 05, 2017 at 10:59 Board Certified Radiologist. This report was verified electronically.
--- NOTE | 2017-05-05 11:06 | HHI.PR ---
Subjective Remarks called to room due to what patient describes as acute left arm weakness, difficulty with speech. Nurses report that she initially was not talking, however subsequently began talking, however continues to report left arm weakness. She requests restarting diazepam for nausea, Ambien for sleep. Objective Vital Signs Date Time Temp Pulse Resp B/P (MAP) Pulse Ox O2 Delivery O2 Flow Rate FiO2 05/05/17 09:50 98.0 69 135/85 (102) 05/05/17 08:27 99.0 83 20 194/100 (131) 100 05/05/17 03:53 98.3 70 18 144/74 (97) 98 05/05/17 00:05 97.6 72 18 131/81 (98) 97 05/04/17 20:35 97.6 77 18 130/80 (97) 98 05/04/17 15:53 98.0 78 20 132/75 (94) 97 05/04/17 11:38 98.0 75 20 123/93 (103) 97 I/O 05/04/17 05/04/17 05/04/17 05/05/17 05/05/17 05/05/17 07:00 15:00 23:00 07:00 15:00 23:00 Intake Total 780 ml 350 ml Balance 780 ml 350 ml Intake Oral 780 ml 350 ml # Voids 2 2 1 Result Diagram: 05/05/17 0708 05/04/17 1310 Objective Remarks GENERAL: Cachectic. Patient sitting up in bed. Appears comfortable. SKIN: Warm and dry. HEAD: Normocephalic. EYES: No scleral icterus. No injection or drainage. NECK: Supple, trachea midline. No JVD. CARDIOVASCULAR: Regular rate and rhythm without murmurs, gallops, or rubs. RESPIRATORY: Breath sounds equal bilaterally. No accessory muscle use. GASTROINTESTINAL: Abdomen soft, non-tender, nondistended. MUSCULOSKELETAL: No cyanosis, or edema. Neurologic. 5 out of 5 strength right upper extremity. 3 out of 5 strength left upper extremity. Left lower extremity strength 4-5, right lower extremity strength 5 BACK: Nontender without obvious deformity. No CVA tenderness. A/P Assessment and Plan // Generalized Weakness: c/o ongoing generalized weakness, likely multifactorial-malnutrition and polypharmacy. Seen in ER on 05/01/17 for same, MRI C/T/L Spine w/ mild-moderate canal stenosis C5-6, otherwise normal, pt LEFT AMA at that time, however does not recall doing so. MRI Brain tonight w/ no acute findings, images reviewed by me. PT for eval/tx. = PT recommends home health, however patient does not feel she will be able to go home. She would like to rehabilitation. I discussed with gastroenterology yesterday, and they recommend not doing TPN that by mouth intake should be sufficient. Recommend going off narcotics. We'll wean narcotics. /Acute left arm weakness 05/05 -I suspect this is possibly secondary to conversion disorder, however cannot rule out possibility patient is having acute stroke. Stroke alert called. CT head ordered stat. //Severe malnutrition. BMI 16.0. Possibly related to loose brown toxicity. Continue on lower dose of buspirone. //Gait Instability: reports inability to ambulate, MRI Spine essentially unremarkable as above. PT for eval/tx. = Neurology assistance appreciated. MRI changes do not explain generalized weakness. //Leukopenia with neutropenia worsening home 3.9. Worsening 3.1 today. Appreciate oncology assistance. //Narcotic Dependence: On multiple narcotics in addition to anxiolytics, repeatedly requesting pain medication in ER both last night and this evening, will hold Fioricet/Valium/Ambien for now. No further narcotics. = Continue to try to avoid excessive narcotics. //UTI. Urinalysis from 05/03 Escherichia coli. Sensitivities pending. Continue on ceftriaxone. //euThyroid sick. -Patient with low TSH 0.1, normal T3, low T4 . Prolactin slightly high, can be a primary or secondary. We'll recheck. Did discuss right brain with radiologist on 05/03, and no concerning hypothalamic/pituitary findings. -PT levels as outpatient. //DVT Prophylaxis: SCD/Teds. Discharge Planning Patient with acute left upper extremity weakness Natalio Ford MD May 05, 2017 11:05
[2017-05-05 11:57] LABS: ALKALINE PHOSPHATASE 103 U/L (45-117); ALT (GPT) 28 U/L (10-53); ANION GAP 7 MEQ/L (5-15); AST (GOT) 29 U/L (15-37); BICARBONATE 25.9 MEQ/L (21.0-32.0); BLOOD UREA NITROGEN 12 MG/DL (7-18); CHLORIDE 106 MEQ/L (98-107); GLOMERULAR FILTRATION RATE 81 ML/MIN (>89); SODIUM (NA) 139 MEQ/L (136-145); TOTAL BILIRUBIN ADULT 0.1 MG/DL (0.2-1.0)
--- NOTE | 2017-05-05 12:17 | RADRPT ---
EXAM DATE/TIME: 05/05/2017 11:47 [facility] COMPARISON: No previous studies available for comparison. INDICATIONS : Stroke alert. MEDICAL HISTORY : Stroke Hypertension. SURGICAL HISTORY : Left knee. ENCOUNTER: Initial ACUITY: 1 day PAIN SCORE: 0/10 LOCATION: head TECHNIQUE: Multiplanar, multisequence MRI of the brain was performed without contrast. FINDINGS: CEREBRUM: The ventricles are normal for age. No evidence of midline shift, mass lesion, hemorrhage or acute in farction. No extraaxial fluid collections are seen. The pituitary gland and suprasellar cistern are normal in configuration. WHITE MATTER: Scattered punctate areas of deep white matter T2 prolongation which are nonspecific. POSTERIOR FOSSA: The cerebellum and brainstem are intact. The 4th ventricle is midline. The cerebellopontine angle is unremarkable. The cerebellar tonsils are normal in position. DIFFUSION IMAGING: No focal areas of restricted diffusion are seen. No evidence of acute infarction. EXTRACRANIAL: The visualized portions of the orbits and paranasal sinuses are unremarkable. CONCLUSION: No evidence of stroke. Scattered small nonspecific white matter lesions Donato Wang MD on May 05, 2017 at 12:12 Board Certified Radiologist. This report was verified electronically.
[2017-05-05 12:25] LABS: CREATINE KINASE 129 U/L (26-192)
--- NOTE | 2017-05-05 12:46 | HHI.PR ---
Subjective Remarks S:stroke alert called on pt for acute left sided weakness started at 10:30 am she had a stat CT that was neg. I ordered a stat MRI brain that was negative for acute stroke. She is c/o headache states she has hx of complicated migraines.Also can not tolerate antiemetics and would like diazepam and im imitrex. O:awake alert vss speech is hypophonic not slurred or aphasic perrla eomi no facial droop when she smiled spontaneously. no vf loss tongue midline motor right ue/le 5/5 lue holds back from allowing me to lift due to tingling per pt-this shows me that she can maintain resistance in left arm. tone is nl dtr 2+ left leg ?old foot drop pt states from old stroke hx?? left toe is downgoing. can lift left leg up. gait deferred. mri and ct brain both neg for acute findings. last 2 d echo ef 50-55% a/p ?tia ?complicated migraine -check eeg-I ordered -ok to try diazepam and imitrex inj for migraine abortive therapy -Dr Madrigal notified of change in pt-he will continue to follow her and make any further recommendations if needed. TPA was not indicated as symptoms are not typical of an acute stroke may be due to migraine and mri was neg for cva. Objective Vital Signs Date Time Temp Pulse Resp B/P (MAP) Pulse Ox O2 Delivery O2 Flow Rate FiO2 05/05/17 10:32 98.2 69 19 167/86 (113) 100 05/05/17 09:50 98.0 69 135/85 (102) 05/05/17 08:27 99.0 83 20 194/100 (131) 100 05/05/17 03:53 98.3 70 18 144/74 (97) 98 05/05/17 00:05 97.6 72 18 131/81 (98) 97 05/04/17 20:35 97.6 77 18 130/80 (97) 98 05/04/17 15:53 98.0 78 20 132/75 (94) 97 I/O 05/04/17 05/04/17 05/04/17 05/05/17 05/05/17 05/05/17 07:00 15:00 23:00 07:00 15:00 23:00 Intake Total 780 ml 350 ml Balance 780 ml 350 ml Intake Oral 780 ml 350 ml # Voids 2 2 1 Result Diagram: 05/05/17 0708 05/05/17 1126 Aisha Lerma MD May 05, 2017 12:46
--- NOTE | 2017-05-05 13:07 | PD.ONC.PN ---
Subjective Subjective Remarks Afebrile overnight. Patient resting in bed. Complaining of headache and continued left arm weakness since this AM. Stroke alert was called and neurologist following. Brain MRI was obtained which was unremarkable. Objective Data Date Time Temp Pulse Resp B/P (MAP) Pulse Ox O2 Delivery O2 Flow Rate FiO2 05/05/17 10:32 98.2 69 19 167/86 (113) 100 05/05/17 09:50 98.0 69 135/85 (102) 05/05/17 08:27 99.0 83 20 194/100 (131) 100 05/05/17 03:53 98.3 70 18 144/74 (97) 98 05/05/17 00:05 97.6 72 18 131/81 (98) 97 05/04/17 20:35 97.6 77 18 130/80 (97) 98 05/04/17 15:53 98.0 78 20 132/75 (94) 97 05/05/17 05/05/17 05/05/17 06:59 14:59 22:59 Intake Total 350 ml Balance 350 ml Result Diagram: 05/05/17 0708 05/05/17 1126 Laboratory Results Laboratory Tests Test 05/04/17 13:10 05/04/17 20:20 05/05/17 07:08 05/05/17 11:26 White Blood Count 3.9 TH/MM3 3.1 TH/MM3 Red Blood Count 3.86 MIL/MM3 3.74 MIL/MM3 Hemoglobin 10.1 GM/DL 9.5 GM/DL Hematocrit 31.5 % 30.0 % Mean Corpuscular Volume 81.6 FL 80.3 FL Mean Corpuscular Hemoglobin 26.1 PG 25.3 PG Mean Corpuscular Hemoglobin Concent 32.0 % 31.5 % Red Cell Distribution Width 21.0 % 20.7 % Platelet Count 134 TH/MM3 119 TH/MM3 Mean Platelet Volume 9.8 FL 9.5 FL Neutrophils (%) (Auto) 39.9 % 50.5 % Lymphocytes (%) (Auto) 44.1 % 37.7 % Monocytes (%) (Auto) 12.3 % 7.9 % Eosinophils (%) (Auto) 3.6 % 3.8 % Basophils (%) (Auto) 0.1 % 0.1 % Neutrophils # (Auto) 1.6 TH/MM3 1.5 TH/MM3 Lymphocytes # (Auto) 1.7 TH/MM3 1.2 TH/MM3 Monocytes # (Auto) 0.5 TH/MM3 0.2 TH/MM3 Eosinophils # (Auto) 0.1 TH/MM3 0.1 TH/MM3 Basophils # (Auto) 0.0 TH/MM3 0.0 TH/MM3 CBC Comment DIFF FINAL DIFF FINAL Differential Comment Blood Urea Nitrogen 11 MG/DL 12 MG/DL Creatinine 0.71 MG/DL 0.74 MG/DL Random Glucose 64 MG/DL 77 MG/DL Total Protein 6.1 GM/DL 6.4 GM/DL Albumin 3.1 GM/DL 3.2 GM/DL Calcium Level 8.4 MG/DL 8.4 MG/DL Alkaline Phosphatase 105 U/L 103 U/L Aspartate Amino Transf (AST/SGOT) 26 U/L 29 U/L Alanine Aminotransferase (ALT/SGPT) 29 U/L 28 U/L Total Bilirubin 0.1 MG/DL 0.1 MG/DL Sodium Level 137 MEQ/L 139 MEQ/L Potassium Level 4.2 MEQ/L 4.0 MEQ/L Chloride Level 107 MEQ/L 106 MEQ/L Carbon Dioxide Level 24.7 MEQ/L 25.9 MEQ/L Anion Gap 5 MEQ/L 7 MEQ/L Estimat Glomerular Filtration Rate 85 ML/MIN 81 ML/MIN Random Cortisol 3.2 MCG/DL Reticulocyte Count 0.6 % Absolute Reticulocyte Count 21.1 MIL/L Iron Level 17 MCG/DL Total Iron Binding Capacity 435 MCG/DL Percent Iron Saturation 3.9 % Ferritin 6 NG/ML Lactate Dehydrogenase 133 U/L Total Creatine Kinase 129 U/L Troponin I LESS THAN 0.02 NG/ML Vitamin B12 Level 492 PG/ML Culture Results Microbiology Date/Time Source Procedure Growth Status 05/02/17 20:00 Blood Peripheral Aerobic Blood Culture - Preliminary NO GROWTH IN 3 DAYS Resulted 05/02/17 20:00 Blood Peripheral Anaerobic Blood Culture - Preliminary NO GROWTH IN 3 DAYS Resulted 05/02/17 18:00 Blood Peripheral Aerobic Blood Culture - Preliminary NO GROWTH IN 3 DAYS Resulted 05/02/17 18:00 Blood Peripheral Anaerobic Blood Culture - Preliminary NO GROWTH IN 3 DAYS Resulted 05/03/17 21:58 Urine Catheterized Urine Urine Culture - Final Klebsiella Pneumoniae Complete Imaging Studies Last [address] 05/05/17 0000 Signed Impressions: Service Date/Time: Friday, May 05, 2017 10:52 - CONCLUSION: Negative for acute process. Ash Chinchilla MD FACR Brain MRI 05/05/17 0000 Signed Impressions: Service Date/Time: Friday, May 05, 2017 11:47 - CONCLUSION: No evidence of stroke. Scattered small nonspecific white matter lesions Donato Wang MD Administered Medications Medications (Trade) Dose Ordered Sig/Davin Route PRN Reason Start Time Stop Time Status Last Admin Dose Admin Sodium Chloride 1,000 ml @ 100 mls/hr Q10H IV 05/02/17 21:25 05/05/17 09:25 Sodium Chloride (NS Flush) 2 ml BID IV FLUSH 05/03/17 09:00 05/04/17 20:49 Senna/Docusate Sodium (Ivonne-Colace) 1 tab BID PO 05/03/17 09:00 05/05/17 08:18 Dicyclomine HCl (Bentyl) 40 mg TID PO 05/03/17 09:00 05/05/17 08:18 Magnesium Oxide (Mag-Ox) 400 mg BID PO 05/03/17 09:00 05/05/17 08:18 Sertraline HCl (Zoloft) 50 mg DAILY PO 05/03/17 09:00 05/05/17 08:18 Multivitamins (Theragran) 1 tab DAILY PO 05/04/17 09:00 05/05/17 08:18 Cholecalciferol (Vitamin D3) 5,000 units DAILY PO 05/04/17 09:00 05/05/17 08:18 Megestrol Acetate (Megace) 40 mg Q12HR PO 05/04/17 21:00 05/05/17 08:18 Buspirone HCl (Buspar) 10 mg Q8HR PO 05/04/17 22:00 05/05/17 05:23 Acetaminophen/ Butalbital/ Caffeine (Fioricet 325-50-40) 1 tab Q8H PRN PO headache/migraine 05/04/17 15:30 05/05/17 08:41 Ceftriaxone Sodium 1000 mg/ Sodium Chloride 100 ml @ 200 mls/hr Q24H IV 05/04/17 16:00 05/04/17 16:18 Objective Remarks GENERAL: Middle aged female sitting up in bed in nad. SKIN: Warm and dry. HEAD: Normocephalic. EYES: no injection or drainage. NECK: Supple, trachea midline. CARDIOVASCULAR: +S1/S2 RESPIRATORY: anterior castillo clear. GASTROINTESTINAL: Abdomen soft, non-tender, nondistended. EXTREMITIES: No cyanosis. NEUROLOGICAL: awake and alert, normal speech. left leg weakness. moves upper extremities without difficulty. Assessment/Plan Problem List: (1) Pancytopenia ICD Codes: D61.818 - Other pancytopenia Plan: --blood count fluctuating over the last several months. --likely has low blood count due to nutrition deficiency. --recent drop in blood count may be due to the urinary tract infection and transient bone marrow suppression. --no evidence of active bleeding noted. not neutropenic. --will give B12 and thiamine. 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 --did not have an confirmed diagnosis of TTP. --platelet count is only slightly low. --There is no evidence of TTP. (3) Left arm weakness ICD Codes: R29.898 - Other symptoms and signs involving the musculoskeletal system Plan: --neurology following --MRI brain unremarkable Assessment 56y/o female with pancytopenia. h/o Renal cell carcinoma in 2004 Stroke after nephrectomy surgery. Depression, anxiety. Chronic aspiration prior to her gastrectomy Myocardial function B12 deficiency. Plan 1. give B12 1000mcg x 1 2. give thiamine 3. monitor CBC Attending Statement The exam, history, and the medical decision-making described in the above note were completed with the assistance of the mid-level provider. I reviewed and agree with the findings presented. I attest that I had a [id number] encounter with the patient on the same day, and personally performed and documented my assessment and findings in the medical record.Events noted. Stroke alert was called. Pancytopenia slightly worse then yesterday. Workup ongoing. Drop in blood counts likely due to infection. Will give her vit B12 and thiamine as she missed a dose this week. Deja Garrett May 05, 2017 13:07 Julius Correa MD May 05, 2017 17:34
[2017-05-05] MEDS: DIAZEPAM 2 MG TAB PO PRN (15:55)
[2017-05-05] MEDS: cefTRIAXone INJ 1,000 MG in SODIUM CHLORIDE 0.9% INJ 100 ML IV SCH (15:58)
--- NOTE | 2017-05-05 16:38 | MG ---
cc: ALEXY DELANEY MD Lab No: Date: 05/05/2017 Age: Sex: F Race: EEG RECORD NUMBER [id number] DATE OF 1960 INDICATION A 56-year-old history of seizures, headache, weakness. DESCRIPTION Posterior rhythm demonstrates 8-10 Hz activity, 20-50 microvolts with increased beta frequencies throughout the recording. Phase reversal sharp wave at P3 epoch 26. Good EEG variability reactivity. Photic stimulation not performed as the patient complained of bad headache. INTERPRETATION Minimal nonspecific changes noted above with a lot of fast frequencies throughout the recording likely related to psychotropic medication. Clinical correlation. Alexy Delaney MD MG/KK /3:59 PM /4:18 PM
[2017-05-05 17:13] LABS: PROTHROMBIN TIME - PATIENT 10.5 SEC (9.8-11.6)
[2017-05-06] VITALS (7 sets, daily range): BP systolic 108–147; BP diastolic 67–83; PULSE 53–79; RESP 12–18; TEMP 97.9–98.6; O2SAT 93–100
[2017-05-06] MEDS: ACETAMIN 325 MG/BUTALBITAL 50 MG/CAFFEINE 40 MG TAB PO PRN ×3 (00:48→17:54)
[2017-05-06] MEDS: DIAZEPAM 2 MG TAB PO PRN ×2 (01:12→17:58)
[2017-05-06] MEDS: SODIUM CHLOR 0.9% 1000 ML INJ 1,000 ML IV SCH ×2 (07:25→15:25)
[2017-05-06] MEDS: busPIRone HCL 10 MG TAB PO SCH ×3 (07:25→21:43)
[2017-05-06 08:30] LABS: AUTOMATED NEUTROPHIL # 2.5 TH/MM3 (1.8-7.7); BASOPHIL % 0.1 % (0.0-2.0); EOSINOPHIL # 0.1 TH/MM3 (0-0.4); EOSINOPHIL % 2.1 % (0.0-4.0); HEMATOCRIT 37.1 % (35.0-46.0); HEMO FLAGS DIFF FINAL; LYMPHOCYTE # 0.9 TH/MM3 (1.0-4.8); MEAN CELL VOLUME 82.3 FL (80.0-100.0); MEAN CORPUSCULAR HEMOGLOBIN 26.5 PG (27.0-34.0); MEAN CORPUSCULAR HGB CONC 32.2 % (32.0-36.0); MONO % 6.8 % (0.0-8.0); PLATELET COUNT 131 TH/MM3 (150-450); RED BLOOD COUNT 4.51 MIL/MM3 (4.00-5.30); RED CELL DISTRIBUTION WIDTH 21.1 % (11.6-17.2); WHITE BLOOD COUNT 3.7 TH/MM3 (4.0-11.0)
--- NOTE | 2017-05-06 08:37 | HHI.PR ---
Subjective Remarks This is a pleasant 56 y/o female admitted due to increased lower extremity numbness and difficulty for ambulation status post multiple falls, has tremor, history of Total gastrectomy and malnutrition, started on TPN about one month ago and gained 10 pounds, has B12 injections and thiamine, followed by Neurology specialist, CT brain negative, MRI Negative for acute stroke, with Assessment of TIA, questioned Complicated Migraine, recommended EEG, Diazepam and Imitrex, senior computer specialist following due to Pancytopenia, thought related to UTI and transient bone marrow suppression replacing Vitamin B12 and Thiamine, 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 Seen in her bedroom stable, she wants to get Fioricet for Headaches, asked for Ambien, neurology already started her On Imitrex. will follow specialist recommendations. as per Oncology recommended Iron Sucrose 200 mg IV for 3 days. No nausea, vomit or diarrhea, started regular diet. Objective Vital Signs Date Time Temp Pulse Resp B/P (MAP) Pulse Ox O2 Delivery O2 Flow Rate FiO2 05/06/17 08:00 98.0 61 18 136/73 (94) 99 05/06/17 04:00 98.2 65 18 133/67 (89) 100 05/06/17 01:46 97.9 79 12 108/71 98 05/06/17 00:00 97.9 79 18 108/71 (83) 98 05/05/17 23:39 98.0 64 12 126/77 97 05/05/17 23:00 97.9 68 12 117/77 98 05/05/17 22:41 97.9 66 12 112/70 98 05/05/17 20:00 98.8 65 18 159/85 (109) 97 05/05/17 16:05 98.7 71 18 165/89 (114) 96 05/05/17 13:13 98.1 75 17 144/88 (106) 99 05/05/17 10:32 98.2 69 19 167/86 (113) 100 05/05/17 09:50 98.0 69 135/85 (102) I/O 05/05/17 05/05/17 05/05/17 05/06/17 05/06/17 05/06/17 07:00 15:00 23:00 07:00 15:00 23:00 Intake Total 350 ml 480 ml 410 ml 450 ml Output Total 850 ml 1300 ml 400 ml Balance 350 ml -370 ml -890 ml 50 ml Intake Oral 350 ml 480 ml 360 ml Packed Cells 400 ml Blood Product IV Normal Saline Flush 50 ml 50 ml Output Urine Total 850 ml 1300 ml 400 ml # Voids 1 1 Result Diagram: 05/05/17 0708 05/05/17 1126 Imaging Last Impressions Head CT 05/05/17 0000 Signed Impressions: Service Date/Time: Friday, May 05, 2017 10:52 - CONCLUSION: Negative for acute process. Ash Chinchilla MD FACR Brain MRI 05/05/17 0000 Signed Impressions: Service Date/Time: Friday, May 05, 2017 11:47 - CONCLUSION: No evidence of stroke. Scattered small nonspecific white matter lesions Donato Wang MD Chest X-Ray 05/02/17 0000 Signed Impressions: Service Date/Time: Tuesday, May 02, 2017 22:25 - CONCLUSION: 1. Minimal basilar atelectasis. No effusion or pneumothorax. Ankit Fong MD Procedures None Other Results Laboratory Tests Test 05/02/17 18:00 05/03/17 11:39 05/03/17 21:58 05/04/17 13:10 Lactic Acid Level 1.6 mmol/L Free Thyroxine 0.75 NG/DL Total Triiodothyronine 73 NG/DL Thyroid Stimulating Hormone 3rd Gen 0.084 uIU/ML Urine Color LIGHT-YELLOW Urine Turbidity HAZY Urine pH 6.0 Urine Specific [place] 1.016 Urine Protein NEG mg/dL Urine Glucose (UA) NEG mg/dL Urine Ketones NEG mg/dL Urine Occult Blood NEG Urine Nitrite POS Urine Bilirubin NEG Urine Urobilinogen LESS THAN 2.0 MG/DL Urine Leukocyte Esterase LARGE Urine RBC 4 /hpf Urine WBC 104 /hpf Urine Squamous Epithelial Cells 4 /hpf Urine Transitional Epithelial Cells 1 /hpf Urine Bacteria MOD /hpf Microscopic Urinalysis Comment CATH-CULTURE IND Urine Opiates Screen NEG Urine Barbiturates Screen POS Urine Amphetamines Screen NEG Urine Benzodiazepines Screen POS Urine Cocaine Screen NEG Urine Cannabinoids Screen NEG Random Cortisol 3.2 MCG/DL Test 05/04/17 20:20 05/05/17 07:08 05/05/17 11:26 05/05/17 16:21 Prolactin 10.0 ng/mL Mean Corpuscular Volume 80.3 FL Mean Corpuscular Hemoglobin 25.3 PG Mean Corpuscular Hemoglobin Concent 31.5 % Red Cell Distribution Width 20.7 % Mean Platelet Volume 9.5 FL Neutrophils (%) (Auto) 50.5 % Lymphocytes (%) (Auto) 37.7 % Monocytes (%) (Auto) 7.9 % Eosinophils (%) (Auto) 3.8 % Basophils (%) (Auto) 0.1 % Neutrophils # (Auto) 1.5 TH/MM3 Lymphocytes # (Auto) 1.2 TH/MM3 Monocytes # (Auto) 0.2 TH/MM3 Eosinophils # (Auto) 0.1 TH/MM3 Basophils # (Auto) 0.0 TH/MM3 CBC Comment DIFF FINAL Reticulocyte Count 0.6 % Absolute Reticulocyte Count 21.1 MIL/L Haptoglobin 107 MG/DL Iron Level 17 MCG/DL Total Iron Binding Capacity 435 MCG/DL Percent Iron Saturation 3.9 % Ferritin 6 NG/ML Lactate Dehydrogenase 133 U/L Total Creatine Kinase 129 U/L Troponin I LESS THAN 0.02 NG/ML Vitamin B12 Level 492 PG/ML Estimat Glomerular Filtration Rate 81 ML/MIN Blood Urea Nitrogen 12 MG/DL Creatinine 0.74 MG/DL Random Glucose 77 MG/DL Total Protein 6.4 GM/DL Albumin 3.2 GM/DL Calcium Level 8.4 MG/DL Alkaline Phosphatase 103 U/L Aspartate Amino Transf (AST/SGOT) 29 U/L Alanine Aminotransferase (ALT/SGPT) 28 U/L Total Bilirubin 0.1 MG/DL Sodium Level 139 MEQ/L Potassium Level 4.0 MEQ/L Chloride Level 106 MEQ/L Carbon Dioxide Level 25.9 MEQ/L Prothrombin Time 10.5 SEC Prothromb Time International Ratio 1.0 RATIO Activated Partial Thromboplast Time 25.0 SEC Fibrinogen 318 mg/dL Test 05/06/17 07:15 Objective Remarks GENERAL: Cachectic. no acute distress. SKIN: Warm and dry. HEAD: Normocephalic. EYES: No scleral icterus. No injection or drainage. NECK: Supple, trachea midline. No JVD. CARDIOVASCULAR: Regular rate and rhythm without murmurs, gallops, or rubs. RESPIRATORY: Breath sounds equal bilaterally. No accessory muscle use. GASTROINTESTINAL: Abdomen soft, non-tender, nondistended. MUSCULOSKELETAL: No cyanosis, or edema. Medications and IVs Current Medications Medications (Trade) Dose Ordered Sig/Davin Route Start Time Stop Time Status Last Admin Sodium Chloride 1,000 ml @ 100 mls/hr Q10H IV 05/02/17 21:25 05/06/17 07:25 (NS Flush) 2 ml UNSCH PRN IV FLUSH 05/02/17 21:30 (NS Flush) 2 ml BID IV FLUSH 05/03/17 09:00 05/05/17 21:00 (Tylenol) 650 mg Q6H PRN PO 05/02/17 21:30 05/05/17 22:40 (Ivonne-Colace) 1 tab BID PO 05/03/17 09:00 05/05/17 22:15 (Milk Of Magnesia Liq) 30 ml Q12H PRN PO 05/02/17 21:30 (Senokot) 17.2 mg Q12H PRN PO 05/02/17 21:30 (Dulcolax Supp) 10 mg DAILY PRN RECTAL 05/02/17 21:30 (Lactulose Liq) 30 ml DAILY PRN PO 05/02/17 21:30 (Bentyl) 40 mg TID PO 05/03/17 09:00 05/05/17 18:50 (Mag-Ox) 400 mg BID PO 05/03/17 09:00 05/05/17 22:16 (Zoloft) 50 mg DAILY PO 05/03/17 09:00 05/05/17 08:18 (Vitamin B12) 1,000 mcg DAILY PO 05/04/17 09:00 (Theragran) 1 tab DAILY PO 05/04/17 09:00 05/05/17 08:18 (Vitamin D3) 5,000 units DAILY PO 05/04/17 09:00 05/05/17 08:18 (Megace) 40 mg Q12HR PO 05/04/17 21:00 05/05/17 22:39 (Buspar) 10 mg Q8HR PO 05/04/17 22:00 05/06/17 07:25 (Fioricet 325-50-40) 1 tab Q8H PRN PO 05/04/17 15:30 05/06/17 00:48 Ceftriaxone Sodium 1000 mg/ Sodium Chloride 100 ml @ 200 mls/hr Q24H IV 05/04/17 16:00 05/05/17 15:58 (Valium) 2 mg Q8HR PRN PO 05/05/17 10:45 05/06/17 01:12 A/P Assessment and Plan // Generalized Weakness: c/o ongoing generalized weakness, likely multifactorial-malnutrition and polypharmacy. Seen in ER on 05/01/17 for same, MRI C/T/L Spine w/ mild-moderate canal stenosis C5-6, otherwise normal, pt LEFT AMA at that time, however does not recall doing so. MRI Brain tonight w/ no acute findings, images reviewed by me. PT for eval/tx. = PT recommends home health , however patient does not feel she will be able to go home. asked for Rehab facility as per PT will need Home with [facility] face to face in EMR for Home Health care. //Acute left arm weakness 05/05, Neurology specialist following CT Brain negative, MRI Negative for acute stroke, placed for diagnosis of TIA by Neurology specialist also recommended EEG, Diazepam and Imitrex. //History of renal cell carcinoma stroke after nephrectomy surgery. //Severe malnutrition. BMI 16.0. Possibly related to loose brown toxicity. Continue on lower dose of buspirone. the patient was on TPN about one month ago she gained 10 pound, was continued on B 12 injections and thiamine by health plan specialist. //Gait Instability: reports inability to ambulate, MRI Spine essentially unremarkable as above. PT recommended for Home with [facility]. = Neurology assistance appreciated. MRI changes do not explain generalized weakness. //Pancytopenia as per senior computer specialist thought related to UTI and transient bone marrow suppression. has History of TTP but at this time no signs of this pathology //Narcotic Dependence: On multiple narcotics in addition to anxiolytics, repeatedly requesting pain medication in ER both last night and this evening, will hold Fioricet/Valium patient asked for Ambien 5 mg re started at a lower dose. = Continue to try to avoid excessive narcotics. //UTI. Urinalysis from 05/03 Escherichia coli. Sensitivities pending. Continue on ceftriaxone. //DVT Prophylaxis: SCD/Teds. Discussed with neurology, Dr. Lerma. We'll get stat CT, stat MRI following CT. Discussed with Dr. LOPEZ, who recommends that if MRI brain is negative, would suggest consulted neurosurgery for possible cervical spinal stenosis. Discharge Planning Once cleared by Specialists. Dequan Parrish MD May 06, 2017 08:37
[2017-05-06] MEDS: SODIUM CHLORIDE 0.9% FLUSH 10 ML FLUSH IV FLUSH SCH ×2 (09:00→21:44)
[2017-05-06 09:11] LABS: BICARBONATE 22.7 MEQ/L (21.0-32.0); POTASSIUM 3.9 MEQ/L (3.5-5.1)
[2017-05-06] MEDS: CHOLECALCIFEROL (VIT D3) 5000 UNIT CAP PO SCH (09:37)
[2017-05-06] MEDS: MEGESTROL ACETATE 40 MG TAB PO SCH ×2 (09:37→22:12)
[2017-05-06] MEDS: MULTIVITAMIN TAB PO SCH (09:37)
[2017-05-06] MEDS: MAGNESIUM OXIDE 400 MG TAB PO SCH ×2 (09:37→21:43)
[2017-05-06] MEDS: DICYCLOMINE HCL 20 MG TAB PO SCH ×3 (09:38→16:57)
[2017-05-06] MEDS: SERTRALINE HCL 50 MG TAB PO SCH (09:38)
[2017-05-06] MEDS: DOCUSATE SODIUM 50 MG/SENNA 8.6 MG TAB PO SCH ×2 (09:38→21:43)
[2017-05-06] MEDS: CYANOCOBALAMIN 1,000 MCG TAB PO SCH (09:43)
--- NOTE | 2017-05-06 11:36 | HHI.FF ---
Face to Face Verification Diagnosis: (1) TIA (transient ischemic attack) (2) Debility (3) Chronic pain (4) Abdominal pain (5) History of gastrectomy (6) History of CVA (cerebrovascular accident) Physical Therapy Order: Evaluate and Treat, Improve ambulation, Strength and gait training Home Health Nursing Order: Medical education Signs/symptoms of disease process Medication education-adverse effect Nursing assessment with vital signs I have seen patient Gabrielle Alcala on 05/06/17. My clinical findings support the need for the requested home health care services because: Ltd mobility - disease progression I certify that my clinical findings support that this patient is homebound because: Unsafe to leave home unassisted Dequan Parrish MD May 06, 2017 11:36
--- NOTE | 2017-05-06 14:19 | PD.ONC.PN ---
Subjective Subjective Remarks Afebrile Asking for Imitrex injection for headache Denies shortness of breath Feels like she is getting stronger but reports she feels dizzy when she gets up to move Objective Data Date Time Temp Pulse Resp B/P (MAP) Pulse Ox O2 Delivery O2 Flow Rate FiO2 05/06/17 12:00 98.6 53 18 147/83 (104) 93 05/06/17 08:00 98.0 61 18 136/73 (94) 99 05/06/17 04:00 98.2 65 18 133/67 (89) 100 05/06/17 01:46 97.9 79 12 108/71 98 05/06/17 00:00 97.9 79 18 108/71 (83) 98 05/05/17 23:39 98.0 64 12 126/77 97 05/05/17 23:00 97.9 68 12 117/77 98 05/05/17 22:41 97.9 66 12 112/70 98 05/05/17 20:00 98.8 65 18 159/85 (109) 97 05/05/17 16:05 98.7 71 18 165/89 (114) 96 05/06/17 05/06/17 05/06/17 07:00 15:00 23:00 Intake Total 450 ml Output Total 400 ml Balance 50 ml Result Diagram: 05/06/1771405/06/17714 Laboratory Results Laboratory Tests Test 05/05/17 16:21 05/06/17 07:15 Prothrombin Time 10.5 SEC Prothromb Time International Ratio 1.0 RATIO Activated Partial Thromboplast Time 25.0 SEC Fibrinogen 318 mg/dL White Blood Count 3.7 TH/MM3 Red Blood Count 4.51 MIL/MM3 Hemoglobin 11.9 GM/DL Hematocrit 37.1 % Mean Corpuscular Volume 82.3 FL Mean Corpuscular Hemoglobin 26.5 PG Mean Corpuscular Hemoglobin Concent 32.2 % Red Cell Distribution Width 21.1 % Platelet Count 131 TH/MM3 Mean Platelet Volume 10.0 FL Neutrophils (%) (Auto) 67.0 % Lymphocytes (%) (Auto) 24.0 % Monocytes (%) (Auto) 6.8 % Eosinophils (%) (Auto) 2.1 % Basophils (%) (Auto) 0.1 % Neutrophils # (Auto) 2.5 TH/MM3 Lymphocytes # (Auto) 0.9 TH/MM3 Monocytes # (Auto) 0.3 TH/MM3 Eosinophils # (Auto) 0.1 TH/MM3 Basophils # (Auto) 0.0 TH/MM3 CBC Comment DIFF FINAL Differential Comment Blood Urea Nitrogen 12 MG/DL Creatinine 0.70 MG/DL Random Glucose 83 MG/DL Calcium Level 8.7 MG/DL Sodium Level 136 MEQ/L Potassium Level 3.9 MEQ/L Chloride Level 103 MEQ/L Carbon Dioxide Level 22.7 MEQ/L Anion Gap 10 MEQ/L Estimat Glomerular Filtration Rate 87 ML/MIN Culture Results Microbiology Date/Time Source Procedure Growth Status 05/03/17 21:58 Urine Catheterized Urine Urine Culture - Final Klebsiella Pneumoniae Complete Administered Medications Medications (Trade) Dose Ordered Sig/Davin Route PRN Reason Start Time Stop Time Status Last Admin Dose Admin Sodium Chloride 1,000 ml @ 100 mls/hr Q10H IV 05/02/17 21:25 05/06/17 07:25 Sodium Chloride (NS Flush) 2 ml BID IV FLUSH 05/03/17 09:00 05/05/17 21:00 Acetaminophen (Tylenol) 650 mg Q6H PRN PO FEVER/PAIN SCALE 1 TO 2 05/02/17 21:30 05/05/17 22:40 Senna/Docusate Sodium (Ivonne-Colace) 1 tab BID PO 05/03/17 09:00 05/06/17 09:38 Dicyclomine HCl (Bentyl) 40 mg TID PO 05/03/17 09:00 05/06/17 12:28 Magnesium Oxide (Mag-Ox) 400 mg BID PO 05/03/17 09:00 05/06/17 09:37 Sertraline HCl (Zoloft) 50 mg DAILY PO 05/03/17 09:00 05/06/17 09:38 Cyanocobalamin (Vitamin B12) 1,000 mcg DAILY PO 05/04/17 09:00 05/06/17 09:43 Multivitamins (Theragran) 1 tab DAILY PO 05/04/17 09:00 05/06/17 09:37 Cholecalciferol (Vitamin D3) 5,000 units DAILY PO 05/04/17 09:00 05/06/17 09:37 Megestrol Acetate (Megace) 40 mg Q12HR PO 05/04/17 21:00 05/06/17 09:37 Buspirone HCl (Buspar) 10 mg Q8HR PO 05/04/17 22:00 05/06/17 12:28 Acetaminophen/ Butalbital/ Caffeine (Fioricet 325-50-40) 1 tab Q8H PRN PO headache/migraine 05/04/17 15:30 05/06/17 09:43 Ceftriaxone Sodium 1000 mg/ Sodium Chloride 100 ml @ 200 mls/hr Q24H IV 05/04/17 16:00 05/05/17 15:58 Diazepam (Valium) 2 mg Q8HR PRN PO NAUSEA 05/05/17 10:45 05/06/17 01:12 Objective Remarks GENERAL: Middle aged female sitting up in bed in no obvious distress. SKIN: Warm and dry. HEAD: Normocephalic. EYES: no injection or drainage. NECK: Supple, trachea midline. CARDIOVASCULAR: +S1/S2 RESPIRATORY: Anterior castillo clear. GASTROINTESTINAL: Abdomen soft, non-tender, nondistended. EXTREMITIES: No cyanosis. NEUROLOGICAL: Awake and alert, normal speech. Left leg weakness. Moves upper extremities without difficulty. Assessment/Plan Problem List: (1) Pancytopenia ICD Codes: D61.818 - Other pancytopenia Plan: --blood count fluctuating over the last several months. --likely has low blood count due to nutrition deficiency. --recent drop in blood count may be due to the urinary tract infection and transient bone marrow suppression. --no evidence of active bleeding noted. not neutropenic. --will give B12 and thiamine. 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 --did not have an confirmed diagnosis of TTP. --platelet count is only slightly low. --There is no evidence of TTP. (3) Left arm weakness ICD Codes: R29.898 - Other symptoms and signs involving the musculoskeletal system Plan: --neurology following --MRI brain unremarkable Assessment 56y/o female with pancytopenia. h/o Renal cell carcinoma in 2004 Stroke after nephrectomy surgery. Depression, anxiety. Chronic aspiration prior to her gastrectomy Myocardial function B12 deficiency. Plan 1. Noted that she has significant MARQUIS with ferritin level of 6. 2. Will give 3 days of iron sucrose 200mg IV. 3. Monitor CBC. Attending Statement The exam, history, and the medical decision-making described in the above note were completed with the assistance of the mid-level provider. I reviewed and agree with the findings presented. I attest that I had a [id number] encounter with the patient on the same day, and personally performed and documented my assessment and findings in the medical record.Still feels weak but slightly better after the transfusion. W/u showed severe iron deficiency likely poor absorption, no obvious bleeding noted. Will give IV venofer. Monitor CBC. Clotilde Byrnes May 06, 2017 14:19 Julius Correa MD May 06, 2017 18:44
[2017-05-06] MEDS ORDERED: SUMAtriptan INJ 6 MG/0.5 ML VIAL SQ ONE (15:00)
[2017-05-06] MEDS: cefTRIAXone INJ 1,000 MG in SODIUM CHLORIDE 0.9% INJ 100 ML IV SCH (16:00)
--- NOTE | 2017-05-06 16:25 | EKG ---
Date Performed: 05/05/2017 Time Performed: 12:32:29 PTAGE: 56 years EKG: SINUS BRADYCARDIA WITH SINUS ARRHYTHMIA LEFT BUNDLE BRANCH BLOCK ABNORMAL ECG WARNING: DATA QUALITY MAY AFFECT INTERPRETATION Since PREVIOUS TRACING , no significant change noted PREVIOUS TRACIN01/04/2017 10.37 DOCTOR: Zayra Jeffries Interpretating Date/Time 05/06/2017 16:25:06
[2017-05-06] MEDS: IRON SUCROSE INJ 200 MG in SODIUM CHLORIDE 0.9% INJ 100 ML IV SCH (16:58)
[2017-05-06] MEDS: ZOLPIDEM TARTRATE 5 MG TAB PO PRN (22:11)
[2017-05-07] VITALS (10 sets, daily range): BP systolic 126–177; BP diastolic 71–84; PULSE 60–77; RESP 16–18; TEMP 96.9–98.7; O2SAT 97–100
[2017-05-07] MEDS: ACETAMIN 325 MG/BUTALBITAL 50 MG/CAFFEINE 40 MG TAB PO PRN ×3 (04:29→21:10)
[2017-05-07] MEDS: DIAZEPAM 2 MG TAB PO PRN ×3 (04:29→18:24)
[2017-05-07] MEDS: busPIRone HCL 10 MG TAB PO SCH ×3 (05:09→21:10)
[2017-05-07] MEDS: SODIUM CHLOR 0.9% 1000 ML INJ 1,000 ML IV SCH ×3 (05:12→22:34)
[2017-05-07] MEDS: SODIUM CHLORIDE 0.9% FLUSH 10 ML FLUSH IV FLUSH SCH ×2 (09:00→21:00)
[2017-05-07] MEDS: CYANOCOBALAMIN 1,000 MCG TAB PO SCH (09:00)
--- NOTE | 2017-05-07 09:24 | HHI.PR ---
Subjective Remarks This is a pleasant 56 y/o female admitted due to increased lower extremity numbness and difficulty for ambulation status post multiple falls, has tremor, history of Total gastrectomy and malnutrition, started on TPN about one month ago and gained 10 pounds, has B12 injections and thiamine, followed by Neurology specialist, CT brain negative, MRI Negative for acute stroke, with Assessment of TIA, questioned Complicated Migraine, recommended EEG, Diazepam and Imitrex, retail pos specialist following due to Pancytopenia, thought related to UTI and transient bone marrow suppression replacing Vitamin B12 and Thiamine, 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 Seen in her bedroom stable, she wants to get Fioricet for Headaches, asked for Ambien, neurology already started her On Imitrex. will follow specialist recommendations. as per Oncology recommended Iron Sucrose 200 mg IV for 3 days. No nausea, vomit or diarrhea, started regular diet. 05/07: Stable in her bedroom, she will need Iron infusion as per retail pos specialist, will discuss with [employer] if the final dose for tomorrow may be given at home I do not see why the patient can not be discharged today, Okay to discharge from Medicine standpoint if okay with Neurology and retail pos specialist. I obtained the discharge by retail pos specialist and Neurology specialist but She states she has the next Iron infusion for tomorrow in am and needs to receive it. No nausea, vomit or diarrhea. Objective Vital Signs Date Time Temp Pulse Resp B/P (MAP) Pulse Ox O2 Delivery O2 Flow Rate FiO2 05/07/17 08:14 98.7 66 16 153/80 (104) 100 05/07/17 04:00 98.1 60 18 145/76 (99) 99 05/07/17 03:50 69 05/07/17 00:00 98.4 76 18 126/71 (89) 97 05/06/17 21:02 98.3 79 18 126/82 (97) 98 05/06/17 20:36 64 05/06/17 12:00 98.6 53 18 147/83 (104) 93 I/O 05/06/17 05/06/17 05/06/17 05/07/17 05/07/17 05/07/17 07:00 15:00 23:00 07:00 15:00 23:00 Intake Total 450 ml 300 ml Output Total 400 ml 500 ml Balance 50 ml -200 ml Intake Oral 300 ml Packed Cells 400 ml Blood Product IV Normal Saline Flush 50 ml Output Urine Total 400 ml 500 ml # Voids 6 3 # Bowel Movements 1 3 Result Diagram: 05/06/17 0715 05/06/17 0715 Imaging Last Impressions Head CT 05/05/17 0000 Signed Impressions: Service Date/Time: Friday, May 05, 2017 10:52 - CONCLUSION: Negative for acute process. Ash Chinchilla MD FACR Brain MRI 05/05/17 0000 Signed Impressions: Service Date/Time: Friday, May 05, 2017 11:47 - CONCLUSION: No evidence of stroke. Scattered small nonspecific white matter lesions Donato Wang MD Chest X-Ray 05/02/17 0000 Signed Impressions: Service Date/Time: Tuesday, May 02, 2017 22:25 - CONCLUSION: 1. Minimal basilar atelectasis. No effusion or pneumothorax. Ankit Fong MD Procedures None Other Results Laboratory Tests Test 05/02/17 18:00 05/03/17 11:39 05/03/17 21:58 05/04/17 13:10 Lactic Acid Level 1.6 mmol/L Free Thyroxine 0.75 NG/DL Total Triiodothyronine 73 NG/DL Thyroid Stimulating Hormone 3rd Gen 0.084 uIU/ML Urine Color LIGHT-YELLOW Urine Turbidity HAZY Urine pH 6.0 Urine Specific [place] 1.016 Urine Protein NEG mg/dL Urine Glucose (UA) NEG mg/dL Urine Ketones NEG mg/dL Urine Occult Blood NEG Urine Nitrite POS Urine Bilirubin NEG Urine Urobilinogen LESS THAN 2.0 MG/DL Urine Leukocyte Esterase LARGE Urine RBC 4 /hpf Urine WBC 104 /hpf Urine Squamous Epithelial Cells 4 /hpf Urine Transitional Epithelial Cells 1 /hpf Urine Bacteria MOD /hpf Microscopic Urinalysis Comment CATH-CULTURE IND Urine Opiates Screen NEG Urine Barbiturates Screen POS Urine Amphetamines Screen NEG Urine Benzodiazepines Screen POS Urine Cocaine Screen NEG Urine Cannabinoids Screen NEG Random Cortisol 3.2 MCG/DL Test 05/04/17 20:20 05/05/17 07:08 05/05/17 11:26 05/05/17 16:21 Prolactin 10.0 ng/mL Reticulocyte Count 0.6 % Absolute Reticulocyte Count 21.1 MIL/L Haptoglobin 107 MG/DL Iron Level 17 MCG/DL Total Iron Binding Capacity 435 MCG/DL Percent Iron Saturation 3.9 % Ferritin 6 NG/ML Lactate Dehydrogenase 133 U/L Total Creatine Kinase 129 U/L Troponin I LESS THAN 0.02 NG/ML Vitamin B12 Level 492 PG/ML Methylmalonic Acid 0.32 nmol/mL Blood Urea Nitrogen 12 MG/DL Creatinine 0.74 MG/DL Random Glucose 77 MG/DL Total Protein 6.4 GM/DL Albumin 3.2 GM/DL Calcium Level 8.4 MG/DL Alkaline Phosphatase 103 U/L Aspartate Amino Transf (AST/SGOT) 29 U/L Alanine Aminotransferase (ALT/SGPT) 28 U/L Total Bilirubin 0.1 MG/DL Sodium Level 139 MEQ/L Potassium Level 4.0 MEQ/L Chloride Level 106 MEQ/L Carbon Dioxide Level 25.9 MEQ/L Prothrombin Time 10.5 SEC Prothromb Time International Ratio 1.0 RATIO Activated Partial Thromboplast Time 25.0 SEC Fibrinogen 318 mg/dL Test 05/06/17 07:15 White Blood Count 3.7 TH/MM3 Red Blood Count 4.51 MIL/MM3 Hemoglobin 11.9 GM/DL Hematocrit 37.1 % Mean Corpuscular Volume 82.3 FL Mean Corpuscular Hemoglobin 26.5 PG Mean Corpuscular Hemoglobin Concent 32.2 % Red Cell Distribution Width 21.1 % Platelet Count 131 TH/MM3 Mean Platelet Volume 10.0 FL Neutrophils (%) (Auto) 67.0 % Lymphocytes (%) (Auto) 24.0 % Monocytes (%) (Auto) 6.8 % Eosinophils (%) (Auto) 2.1 % Basophils (%) (Auto) 0.1 % Neutrophils # (Auto) 2.5 TH/MM3 Lymphocytes # (Auto) 0.9 TH/MM3 Monocytes # (Auto) 0.3 TH/MM3 Eosinophils # (Auto) 0.1 TH/MM3 Basophils # (Auto) 0.0 TH/MM3 CBC Comment DIFF FINAL Differential Comment Blood Urea Nitrogen 12 MG/DL Creatinine 0.70 MG/DL Random Glucose 83 MG/DL Calcium Level 8.7 MG/DL Sodium Level 136 MEQ/L Potassium Level 3.9 MEQ/L Chloride Level 103 MEQ/L Carbon Dioxide Level 22.7 MEQ/L Anion Gap 10 MEQ/L Estimat Glomerular Filtration Rate 87 ML/MIN Objective Remarks GENERAL: Cachectic. no acute distress. SKIN: Warm and dry. HEAD: Normocephalic. EYES: No scleral icterus. No injection or drainage. NECK: Supple, trachea midline. No JVD. CARDIOVASCULAR: Regular rate and rhythm without murmurs, gallops, or rubs. RESPIRATORY: Breath sounds equal bilaterally. No accessory muscle use. GASTROINTESTINAL: Abdomen soft, non-tender, nondistended. MUSCULOSKELETAL: No cyanosis, or edema. Medications and IVs Current Medications Medications (Trade) Dose Ordered Sig/Davin Route Start Time Stop Time Status Last Admin Sodium Chloride 1,000 ml @ 100 mls/hr Q10H IV 05/02/17 21:25 05/07/17 05:12 (NS Flush) 2 ml UNSCH PRN IV FLUSH 05/02/17 21:30 (NS Flush) 2 ml BID IV FLUSH 05/03/17 09:00 05/06/17 21:44 (Tylenol) 650 mg Q6H PRN PO 05/02/17 21:30 05/05/17 22:40 (Ivonne-Colace) 1 tab BID PO 05/03/17 09:00 05/06/17 21:43 (Milk Of Magnesia Liq) 30 ml Q12H PRN PO 05/02/17 21:30 (Senokot) 17.2 mg Q12H PRN PO 05/02/17 21:30 (Dulcolax Supp) 10 mg DAILY PRN RECTAL 05/02/17 21:30 (Lactulose Liq) 30 ml DAILY PRN PO 05/02/17 21:30 (Bentyl) 40 mg TID PO 05/03/17 09:00 05/06/17 16:57 (Mag-Ox) 400 mg BID PO 05/03/17 09:00 05/06/17 21:43 (Zoloft) 50 mg DAILY PO 05/03/17 09:00 05/06/17 09:38 (Vitamin B12) 1,000 mcg DAILY PO 05/04/17 09:00 05/06/17 09:43 (Theragran) 1 tab DAILY PO 05/04/17 09:00 05/06/17 09:37 (Vitamin D3) 5,000 units DAILY PO 05/04/17 09:00 05/06/17 09:37 (Megace) 40 mg Q12HR PO 05/04/17 21:00 05/06/17 22:12 (Buspar) 10 mg Q8HR PO 05/04/17 22:00 05/07/17 05:09 Ceftriaxone Sodium 1000 mg/ Sodium Chloride 100 ml @ 200 mls/hr Q24H IV 05/04/17 16:00 05/06/17 16:00 (Valium) 2 mg Q8HR PRN PO 05/05/17 10:45 05/07/17 04:29 (Ambien) 5 mg HS PRN PO 05/06/17 21:00 05/06/17 22:11 Iron Sucrose 200 mg/Sodium Chloride 110 ml @ 110 mls/hr DAILY IV 05/06/17 14:00 05/08/17 09:59 05/06/17 16:58 Non-Formulary Medication 20 mg Q6H PRN PO 05/07/17 09:15 UNV (OxyCONTIN CR) 10 mg Q8HR PO 05/07/17 14:00 UNV (Imitrex Inj) 6 mg UNSCH PRN SQ 05/07/17 09:15 UNV A/P Assessment and Plan // Generalized Weakness: c/o ongoing generalized weakness, likely multifactorial-malnutrition and polypharmacy. Seen in ER on 05/01/17 for same, MRI C/T/L Spine w/ mild-moderate canal stenosis C5-6, otherwise normal, pt LEFT AMA at that time, however does not recall doing so. MRI Brain tonight w/ no acute findings, images reviewed by me. PT for eval/tx. = PT recommends home health , however patient does not feel she will be able to go home. asked for Rehab facility as per PT will need Home with [facility] face to face in EMR for Home Health care. //Acute left arm weakness 05/05, Neurology specialist following CT Brain negative, MRI Negative for acute stroke, placed for diagnosis of TIA by Neurology specialist also recommended EEG, Diazepam and Imitrex. Okay to discharge as per Neurology specialist EEG minimal nonspecific changes noted with lot of fast frequencies. //History of renal cell carcinoma stroke after nephrectomy surgery. //Severe malnutrition. BMI 16.0. Possibly related to loose brown toxicity. Continue on lower dose of buspirone. the patient was on TPN about one month ago she gained 10 pound, was continued on B 12 injections and thiamine by commercial collections specialist. //Gait Instability: reports inability to ambulate, MRI Spine essentially unremarkable as above. PT recommended for Home with [facility]. = Neurology assistance appreciated. MRI changes do not explain generalized weakness. //Pancytopenia as per retail pos specialist thought related to UTI and transient bone marrow suppression. has History of TTP but at this time no signs of this pathology //Narcotic Dependence: On multiple narcotics in addition to anxiolytics, repeatedly requesting pain medication in ER both last night and this evening, will hold Fioricet/Valium patient asked for Ambien 5 mg re started at a lower dose. = Continue to try to avoid excessive narcotics. //UTI. Urinalysis from 05/03 Escherichia coli. Sensitivities pending. Continue on ceftriaxone. //DVT Prophylaxis: SCD/Teds. Discussed with neurology, Dr. Lerma. We'll get stat CT, stat MRI following CT. Discussed with Dr. LOPEZ, who recommends that if MRI brain is negative, would suggest consulted neurosurgery for possible cervical spinal stenosis. Discharge Planning after final dose of Iron infusion tomorrow will be discharged. Dequan Parrish MD May 07, 2017 9:24 am
[2017-05-07] MEDS: MULTIVITAMIN TAB PO SCH (09:41)
[2017-05-07] MEDS: DICYCLOMINE HCL 20 MG TAB PO SCH ×3 (09:41→18:24)
[2017-05-07] MEDS: CHOLECALCIFEROL (VIT D3) 5000 UNIT CAP PO SCH (09:41)
[2017-05-07] MEDS: DOCUSATE SODIUM 50 MG/SENNA 8.6 MG TAB PO SCH ×2 (09:41→21:10)
[2017-05-07] MEDS: IRON SUCROSE INJ 200 MG in SODIUM CHLORIDE 0.9% INJ 100 ML IV SCH (09:42)
[2017-05-07] MEDS: SERTRALINE HCL 50 MG TAB PO SCH (09:42)
[2017-05-07] MEDS: MAGNESIUM OXIDE 400 MG TAB PO SCH ×2 (09:42→21:09)
[2017-05-07] MEDS: MEGESTROL ACETATE 40 MG TAB PO SCH ×2 (09:55→21:27)
[2017-05-07] MEDS: SUMAtriptan INJ 6 MG/0.5 ML VIAL SQ PRN ×2 (10:06→16:06)
[2017-05-07] MEDS ORDERED: oxyCODONE HCL 10 MG CONTROLLED RELEASE TAB PO SCH (14:00)
[2017-05-07] MEDS: cefTRIAXone INJ 1,000 MG in SODIUM CHLORIDE 0.9% INJ 100 ML IV SCH (16:00)
--- NOTE | 2017-05-07 16:04 | PD.ONC.PN ---
Subjective Subjective Remarks Afebrile Pt reports she is having a lot of nausea associated with the iron infusion. Currently trying to eat a late lunch Reports she is going home tomorrow with home health PT Objective Data Date Time Temp Pulse Resp B/P (MAP) Pulse Ox O2 Delivery O2 Flow Rate FiO2 05/07/17 12:13 96.9 74 18 155/82 (106) 99 05/07/17 10:53 98 05/07/17 08:14 98.7 66 16 153/80 (104) 100 05/07/17 04:00 98.1 60 18 145/76 (99) 99 05/07/17 03:50 69 05/07/17 00:00 98.4 76 18 126/71 (89) 97 05/06/17 21:02 98.3 79 18 126/82 (97) 98 05/06/17 20:36 64 05/07/17 05/07/17 05/07/17 07:00 15:00 23:00 Intake Total 300 ml 960 ml Output Total 500 ml Balance -200 ml 960 ml Result Diagram: 05/06/1771405/06/17714 Administered Medications Medications (Trade) Dose Ordered Sig/Davin Route PRN Reason Start Time Stop Time Status Last Admin Dose Admin Sodium Chloride 1,000 ml @ 100 mls/hr Q10H IV 05/02/17 21:25 05/07/17 05:12 Sodium Chloride (NS Flush) 2 ml BID IV FLUSH 05/03/17 09:00 05/07/17 09:00 Acetaminophen (Tylenol) 650 mg Q6H PRN PO FEVER/PAIN SCALE 1 TO 2 05/02/17 21:30 05/05/17 22:40 Senna/Docusate Sodium (Ivonne-Colace) 1 tab BID PO 05/03/17 09:00 05/07/17 09:41 Dicyclomine HCl (Bentyl) 40 mg TID PO 05/03/17 09:00 05/07/17 13:07 Magnesium Oxide (Mag-Ox) 400 mg BID PO 05/03/17 09:00 05/07/17 09:42 Sertraline HCl (Zoloft) 50 mg DAILY PO 05/03/17 09:00 05/07/17 09:42 Cyanocobalamin (Vitamin B12) 1,000 mcg DAILY PO 05/04/17 09:00 05/06/17 09:43 Multivitamins (Theragran) 1 tab DAILY PO 05/04/17 09:00 05/07/17 09:41 Cholecalciferol (Vitamin D3) 5,000 units DAILY PO 05/04/17 09:00 05/07/17 09:41 Megestrol Acetate (Megace) 40 mg Q12HR PO 05/04/17 21:00 05/07/17 09:55 Buspirone HCl (Buspar) 10 mg Q8HR PO 05/04/17 22:00 05/07/17 12:57 Ceftriaxone Sodium 1000 mg/ Sodium Chloride 100 ml @ 200 mls/hr Q24H IV 05/04/17 16:00 05/06/17 16:00 Diazepam (Valium) 2 mg Q8HR PRN PO NAUSEA 05/05/17 10:45 05/07/17 09:41 Zolpidem Tartrate (Ambien) 5 mg HS PRN PO INSOMNIA 05/06/17 21:00 05/06/17 22:11 Iron Sucrose 200 mg/Sodium Chloride 110 ml @ 110 mls/hr DAILY IV 05/06/17 14:00 05/08/17 09:59 05/07/17 09:42 Acetaminophen/ Butalbital/ Caffeine (Fioricet 325-50-40) 1 tab Q6H PRN PO HEADACHE 05/07/17 09:15 05/07/17 12:57 Oxycodone HCl (OxyCONTIN CR) 10 mg Q8HR PO 05/07/17 14:00 05/07/17 13:54 Sumatriptan Succinate (Imitrex Inj) 6 mg UNSCH PRN SQ MIGRAINE HEADACHE 05/07/17 09:15 05/07/17 10:06 Objective Remarks GENERAL: Thin, middle aged female sitting up in bed in no obvious distress. SKIN: Warm and dry. HEAD: Normocephalic. EYES: no injection or drainage. NECK: Supple, trachea midline. CARDIOVASCULAR: +S1/S2 RESPIRATORY: Anterior castillo clear. GASTROINTESTINAL: Abdomen soft, non-tender, nondistended. EXTREMITIES: No cyanosis. No edema NEUROLOGICAL: Awake and alert, normal speech. Left leg weakness. Moves upper extremities without difficulty. Assessment/Plan Problem List: (1) Pancytopenia ICD Codes: D61.818 - Other pancytopenia Plan: --blood count fluctuating over the last several months. --likely has low blood count due to nutrition deficiency. --recent drop in blood count may be due to the urinary tract infection and transient bone marrow suppression. --no evidence of active bleeding noted. not neutropenic. --will give B12 and thiamine. 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 --did not have an confirmed diagnosis of TTP. --platelet count is only slightly low. --There is no evidence of TTP. (3) Left arm weakness ICD Codes: R29.898 - Other symptoms and signs involving the musculoskeletal system Plan: --neurology following --MRI brain unremarkable Assessment 56y/o female with pancytopenia. h/o Renal cell carcinoma in 2004 Stroke after nephrectomy surgery. Depression, anxiety. Chronic aspiration prior to her gastrectomy Myocardial function B12 deficiency. Plan 1. Will give dose of Ativan 0.5mg po today and x 1 dose tomorrow prior to iron. 2. OK for discharge from oncology standpoint. Attending Statement The exam, history, and the medical decision-making described in the above note were completed with the assistance of the mid-level provider. I reviewed and agree with the findings presented. I attest that I had a [id number] encounter with the patient on the same day, and personally performed and documented my assessment and findings in the medical record. Feels better after the transfusion. Tolerated Venofer well. Will give 2 more doses of venofer. With h/o of poor absorption, she will need periodic iron infusion and she can f/u at hematology clinic. Monitor CBC. Clotilde Byrnes May 07, 2017 16:04 Julius Correa MD May 07, 2017 17:44
[2017-05-07] MEDS ORDERED: LORazepam 0.5 MG TAB PO ONE (16:15)
--- NOTE | 2017-05-07 17:06 | MB ---
cc: CODI CALL DALIA M.D. DATE OF CONSULTATION: 05/07/17 REASON FOR CONSULTATION C5-C6 stenosis. HISTORY OF PRESENT ILLNESS This is a 56-year-old lady who presents with complaints of generalized weakness and recurrent falls. She also had an acute onset of dense left-sided hemiparesis associated with a severe migraine headache a couple days ago, and states that subsequently with Imitrex and pain medication this has improved and hemiparesis has also mainly resolved. She has a chronic left foot weakness from a previous stroke after her heart surgery and was found to have a septal defect which was repaired. She also is very malnourished and has a history of gastrectomy and nephrectomy for renal cell carcinoma and was initially on TPN. She takes OxyContin on a regular basis mainly for her abdominal pain and symptoms. She has been evaluated by Neurology and extensive neurologic workup including MRI scan of the brain as well as cervical, thoracic and lumbar spine has been obtained. The only pertinent finding is a moderate stenosis at the C5-6 level from a disc/osteophyte complex and degenerate changes. No intrinsic spinal cord changes are noted. PAST MEDICAL HISTORY 1. Gastrectomy with overall poor nutrition and appetite. 2. Renal cell carcinoma status post nephrectomy. 3. History of stroke with a left-sided weakness particularly distally in the left foot. 4. Anxiety, depression. MEDICATIONS Medications prior to admission include - 1. BuSpar 30 mg t.i.d. 2. Fioricet 20 mg q.6 hours p.r.n. 3. Calcium and Vitamin D supplements. 4. Valium 3 mg t.i.d. 5. Dicyclomine 40 mg t.i.d. 6. Dulcolax 100 mg q.h.s. 7. Cymbalta 20 mg daily. 8. Haldol 20 mg p.r.n. 9. Magnesium oxide 400 mg b.i.d. 10. Nortriptyline 75 mg q.h.s. 11. OxyContin 10 mg q.8 hours. 12. Zoloft 50 mg daily. 13. Vitamin E. 14. Ambien 10 mg q.h.s. p.r.n. ALLERGIES SULFA, MORPHINE, ZOFRAN, PENICILLIN, PROMETHAZINE, SHELLFISH, REGLAN, KETOROLAC, TRIMETHOBENZAMIDE, PROCHLORPERAZINE, GADOTERIDOL, GADODIAMIDE, GADOBENIC ACID. SOCIAL HISTORY She is . Denies alcohol or tobacco use. LABORATORY FINDINGS White blood cell count 3.7, hemoglobin 11.9, platelet count of 131. PT 10.5, INR 1.0, PTT 25, fibrinogen 318. Sodium 136, potassium 3.9, BUN 12, creatinine 0.7, glucose 83. FAMILY HISTORY Negative for any diabetes mellitus or coronary artery disease. PHYSICAL EXAMINATION VITAL SIGNS: Temperature 96.9, pulse is 74, respiratory rate 18, blood pressure 155/82, oxygen saturation 99% on room air. HEENT: No Dasilva's or raccoon's sign. Normocephalic, atraumatic. NECK: There is some mild restriction in range of motion which is chronic for her with mild discomfort. CHEST: Clear to auscultation bilaterally. HEART: Regular rate and rhythm. Normal S1 and S2. ABDOMEN: Soft, nontender. No hepatosplenomegaly. NEUROLOGIC: She is awake, alert. Extraocular muscles are intact. Face is symmetric. Tongue is midline. She moves upper and lower extremities with mild left upper extremity weakness about 4+/5, lower extremity proximally she is 4+, and distally in dorsiflexion she is 3, and plantar flexion 4-. Equivocal Babinski. She states that she has had light touch sensation decreased distally below her knee in the left leg. There is normal sensation in the upper extremities and the right lower extremity. Speech is fluent. GENERAL APPEARANCE: Overall a middle-aged female, very cachectic appearance, in no acute distress. SKIN: No breakdown or rashes or any ecchymosis noted. IMPRESSION Cervical C5-C6 moderate disc stenosis, although current symptoms do not appear to be related to this. She denies any incontinence and had a transient dense left hemiparesis which has resolved once her migraines also improved and appears to be likely a complex migraine attack. The neurologists also are in agreement with this diagnosis. She does have confounding medical comorbidities as well as being malnourished and also received packed red blood cells and iron infusion to help with her generalized weakness. PLAN I have discussed the findings regarding the C5-C6 stenosis and she understands that there is an increased risk for spinal cord injury especially with fall given the stenosis. Surgical intervention is the only way to decompress the spinal canal, but given her overall frail condition and comorbidities her risk for complications are moderate to high range. She is adamant that she does not want any surgical intervention at this point and will accept the risks associated with the cervical stenosis. I recommended she continue with improving her p.o. intake as well as undergo rehabilitation with physical and occupational therapy. She will followup with Neurology and I will see her on an as-needed basis. MD ANA M Giron/THERESA /4:03 PM /4:18 PM
[2017-05-07] MEDS: ZOLPIDEM TARTRATE 5 MG TAB PO PRN (21:10)
[2017-05-07] MEDS: oxyCODONE HCL 10 MG CONTROLLED RELEASE TAB PO PRN (21:28)
[2017-05-08] VITALS (9 sets, daily range): BP systolic 135–145; BP diastolic 67–78; PULSE 59–82; RESP 16–18; TEMP 97.3–98.5; O2SAT 96–100
[2017-05-08] MEDS ORDERED: DIAZEPAM 5 MG TAB PO ONE (00:30)
[2017-05-08] MEDS: ACETAMIN 325 MG/BUTALBITAL 50 MG/CAFFEINE 40 MG TAB PO PRN ×2 (03:07→08:47)
[2017-05-08] MEDS: oxyCODONE HCL 10 MG CONTROLLED RELEASE TAB PO PRN (06:03)
[2017-05-08] MEDS: busPIRone HCL 10 MG TAB PO SCH (06:31)
[2017-05-08 07:37] LABS: AUTOMATED NEUTROPHIL # 1.5 TH/MM3 (1.8-7.7); BASOPHIL % 0.2 % (0.0-2.0); EOSINOPHIL # 0.1 TH/MM3 (0-0.4); EOSINOPHIL % 2.8 % (0.0-4.0); HEMATOCRIT 33.9 % (35.0-46.0); HEMO FLAGS DIFF FINAL; LYMPH % 41.1 % (9.0-44.0); LYMPHOCYTE # 1.3 TH/MM3 (1.0-4.8); MEAN CORPUSCULAR HEMOGLOBIN 25.8 PG (27.0-34.0); MEAN CORPUSCULAR HGB CONC 31.9 % (32.0-36.0); MONO % 10.7 % (0.0-8.0); NEUT % 45.2 % (16.0-70.0); PLATELET COUNT 114 TH/MM3 (150-450); RED BLOOD COUNT 4.18 MIL/MM3 (4.00-5.30); RED CELL DISTRIBUTION WIDTH 21.1 % (11.6-17.2); WHITE BLOOD COUNT 3.3 TH/MM3 (4.0-11.0)
[2017-05-08] MEDS: CHOLECALCIFEROL (VIT D3) 5000 UNIT CAP PO SCH (08:23)
[2017-05-08] MEDS: CYANOCOBALAMIN 1,000 MCG TAB PO SCH (08:24)
[2017-05-08] MEDS: MULTIVITAMIN TAB PO SCH (08:24)
[2017-05-08] MEDS: SERTRALINE HCL 50 MG TAB PO SCH (08:24)
[2017-05-08] MEDS: MEGESTROL ACETATE 40 MG TAB PO SCH (08:24)
[2017-05-08] MEDS: MAGNESIUM OXIDE 400 MG TAB PO SCH (08:24)
[2017-05-08] MEDS: DOCUSATE SODIUM 50 MG/SENNA 8.6 MG TAB PO SCH (08:26)
[2017-05-08] MEDS ORDERED: LORazepam 0.5 MG TAB PO ONE (08:30)
--- NOTE | 2017-05-08 08:31 | HHI.PR ---
Subjective Remarks This is a pleasant 56 y/o female admitted due to increased lower extremity numbness and difficulty for ambulation status post multiple falls, has tremor, history of Total gastrectomy and malnutrition, started on TPN about one month ago and gained 10 pounds, has B12 injections and thiamine, followed by Neurology specialist, CT brain negative, MRI Negative for acute stroke, with Assessment of TIA, questioned Complicated Migraine, recommended EEG, Diazepam and Imitrex, field support specialist following due to Pancytopenia, thought related to UTI and transient bone marrow suppression replacing Vitamin B12 and Thiamine, 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 Seen in her bedroom stable, she wants to get Fioricet for Headaches, asked for Ambien, neurology already started her On Imitrex. will follow specialist recommendations. as per Oncology recommended Iron Sucrose 200 mg IV for 3 days. No nausea, vomit or diarrhea, started regular diet. 05/07: Stable in her bedroom, she will need Iron infusion as per field support specialist, will discuss with Bait Man if the final dose for tomorrow may be given at home I do not see why the patient can not be discharged today, Okay to discharge from Medicine standpoint if okay with Neurology and field support specialist. I obtained the discharge by field support specialist and Neurology specialist but She states she has the next Iron infusion for tomorrow in am and needs to receive it. 05/08: Seen in her Bedroom in the presence of nurse Mr Dodson she has improved her Nausea, no vomit or diarrhea, asking for scripts to go home. Objective Vital Signs Date Time Temp Pulse Resp B/P (MAP) Pulse Ox O2 Delivery O2 Flow Rate FiO2 05/08/17 04:41 74 05/08/17 04:16 69 05/08/17 04:12 75 05/08/17 04:00 97.3 59 18 135/67 (89) 100 05/08/17 00:00 98.3 64 18 135/70 (91) 97 05/07/17 20:00 98.6 65 18 138/84 (102) 98 05/07/17 17:42 99 21 05/07/17 16:45 97.7 77 18 177/77 (110) 99 05/07/17 12:13 96.9 74 18 155/82 (106) 99 05/07/17 12:00 72 05/07/17 10:53 98 I/O 05/07/17 05/07/17 05/07/17 05/08/17 05/08/17 05/08/17 07:00 15:00 23:00 07:00 15:00 23:00 Intake Total 300 ml 960 ml 1370 ml Output Total 500 ml Balance -200 ml 960 ml 1370 ml Intake Oral 300 ml 960 ml 1370 ml Output Urine Total 500 ml # Voids 5 3 # Bowel Movements 3 Result Diagram: 05/08/17 0659 05/06/17 0715 Imaging Last Impressions Head CT 05/05/17 0000 Signed Impressions: Service Date/Time: Friday, May 05, 2017 10:52 - CONCLUSION: Negative for acute process. Ash Chinchilla MD FACR Brain MRI 05/05/17 0000 Signed Impressions: Service Date/Time: Friday, May 05, 2017 11:47 - CONCLUSION: No evidence of stroke. Scattered small nonspecific white matter lesions Donato Wang MD Chest X-Ray 05/02/17 0000 Signed Impressions: Service Date/Time: Tuesday, May 02, 2017 22:25 - CONCLUSION: 1. Minimal basilar atelectasis. No effusion or pneumothorax. Ankit Fong MD Procedures None Other Results Laboratory Tests Test 05/02/17 18:00 05/03/17 11:39 05/03/17 21:58 05/04/17 13:10 Lactic Acid Level 1.6 mmol/L Free Thyroxine 0.75 NG/DL Total Triiodothyronine 73 NG/DL Thyroid Stimulating Hormone 3rd Gen 0.084 uIU/ML Urine Color LIGHT-YELLOW Urine Turbidity HAZY Urine pH 6.0 Urine Specific [place] 1.016 Urine Protein NEG mg/dL Urine Glucose (UA) NEG mg/dL Urine Ketones NEG mg/dL Urine Occult Blood NEG Urine Nitrite POS Urine Bilirubin NEG Urine Urobilinogen LESS THAN 2.0 MG/DL Urine Leukocyte Esterase LARGE Urine RBC 4 /hpf Urine WBC 104 /hpf Urine Squamous Epithelial Cells 4 /hpf Urine Transitional Epithelial Cells 1 /hpf Urine Bacteria MOD /hpf Microscopic Urinalysis Comment CATH-CULTURE IND Urine Opiates Screen NEG Urine Barbiturates Screen POS Urine Amphetamines Screen NEG Urine Benzodiazepines Screen POS Urine Cocaine Screen NEG Urine Cannabinoids Screen NEG Random Cortisol 3.2 MCG/DL Test 05/04/17 20:20 05/05/17 07:08 05/05/17 11:26 05/05/17 16:21 Prolactin 10.0 ng/mL Reticulocyte Count 0.6 % Absolute Reticulocyte Count 21.1 MIL/L Haptoglobin 107 MG/DL Iron Level 17 MCG/DL Total Iron Binding Capacity 435 MCG/DL Percent Iron Saturation 3.9 % Ferritin 6 NG/ML Lactate Dehydrogenase 133 U/L Total Creatine Kinase 129 U/L Troponin I LESS THAN 0.02 NG/ML Vitamin B12 Level 492 PG/ML Methylmalonic Acid 0.32 nmol/mL Red Blood Cell Folate 286 Blood Urea Nitrogen 12 MG/DL Creatinine 0.74 MG/DL Random Glucose 77 MG/DL Total Protein 6.4 GM/DL Albumin 3.2 GM/DL Calcium Level 8.4 MG/DL Alkaline Phosphatase 103 U/L Aspartate Amino Transf (AST/SGOT) 29 U/L Alanine Aminotransferase (ALT/SGPT) 28 U/L Total Bilirubin 0.1 MG/DL Sodium Level 139 MEQ/L Potassium Level 4.0 MEQ/L Chloride Level 106 MEQ/L Carbon Dioxide Level 25.9 MEQ/L Prothrombin Time 10.5 SEC Prothromb Time International Ratio 1.0 RATIO Activated Partial Thromboplast Time 25.0 SEC Fibrinogen 318 mg/dL Test 05/06/17 07:15 05/08/17 06:59 Blood Urea Nitrogen 12 MG/DL Creatinine 0.70 MG/DL Random Glucose 83 MG/DL Calcium Level 8.7 MG/DL Sodium Level 136 MEQ/L Potassium Level 3.9 MEQ/L Chloride Level 103 MEQ/L Carbon Dioxide Level 22.7 MEQ/L Anion Gap 10 MEQ/L Estimat Glomerular Filtration Rate 87 ML/MIN White Blood Count 3.3 TH/MM3 Red Blood Count 4.18 MIL/MM3 Hemoglobin 10.8 GM/DL Hematocrit 33.9 % Mean Corpuscular Volume 81.0 FL Mean Corpuscular Hemoglobin 25.8 PG Mean Corpuscular Hemoglobin Concent 31.9 % Red Cell Distribution Width 21.1 % Platelet Count 114 TH/MM3 Mean Platelet Volume 9.8 FL Neutrophils (%) (Auto) 45.2 % Lymphocytes (%) (Auto) 41.1 % Monocytes (%) (Auto) 10.7 % Eosinophils (%) (Auto) 2.8 % Basophils (%) (Auto) 0.2 % Neutrophils # (Auto) 1.5 TH/MM3 Lymphocytes # (Auto) 1.3 TH/MM3 Monocytes # (Auto) 0.4 TH/MM3 Eosinophils # (Auto) 0.1 TH/MM3 Basophils # (Auto) 0.0 TH/MM3 CBC Comment DIFF FINAL Differential Comment Objective Remarks GENERAL: Cachectic. no acute distress. SKIN: Warm and dry. HEAD: Normocephalic. EYES: No scleral icterus. No injection or drainage. NECK: Supple, trachea midline. No JVD. CARDIOVASCULAR: Regular rate and rhythm without murmurs, gallops, or rubs. RESPIRATORY: Breath sounds equal bilaterally. No accessory muscle use. GASTROINTESTINAL: Abdomen soft, non-tender, nondistended. MUSCULOSKELETAL: No cyanosis, or edema. Medications and IVs Current Medications Medications (Trade) Dose Ordered Sig/Davin Route Start Time Stop Time Status Last Admin Sodium Chloride 1,000 ml @ 100 mls/hr Q10H IV 05/02/17 21:25 05/07/17 22:34 (NS Flush) 2 ml UNSCH PRN IV FLUSH 05/02/17 21:30 (NS Flush) 2 ml BID IV FLUSH 05/03/17 09:00 05/07/17 09:00 (Tylenol) 650 mg Q6H PRN PO 05/02/17 21:30 05/05/17 22:40 (Ivonne-Colace) 1 tab BID PO 05/03/17 09:00 05/07/17 21:10 (Milk Of Magnesia Liq) 30 ml Q12H PRN PO 05/02/17 21:30 (Senokot) 17.2 mg Q12H PRN PO 05/02/17 21:30 (Dulcolax Supp) 10 mg DAILY PRN RECTAL 05/02/17 21:30 (Lactulose Liq) 30 ml DAILY PRN PO 05/02/17 21:30 (Bentyl) 40 mg TID PO 05/03/17 09:00 05/07/17 18:24 (Mag-Ox) 400 mg BID PO 05/03/17 09:00 05/07/17 21:09 (Zoloft) 50 mg DAILY PO 05/03/17 09:00 05/07/17 09:42 (Vitamin B12) 1,000 mcg DAILY PO 05/04/17 09:00 05/06/17 09:43 (Theragran) 1 tab DAILY PO 05/04/17 09:00 05/07/17 09:41 (Vitamin D3) 5,000 units DAILY PO 05/04/17 09:00 05/07/17 09:41 (Megace) 40 mg Q12HR PO 05/04/17 21:00 05/07/17 21:27 (Buspar) 10 mg Q8HR PO 05/04/17 22:00 05/08/17 06:31 Ceftriaxone Sodium 1000 mg/ Sodium Chloride 100 ml @ 200 mls/hr Q24H IV 05/04/17 16:00 05/07/17 16:00 (Valium) 2 mg Q8HR PRN PO 05/05/17 10:45 05/07/17 18:24 (Ambien) 5 mg HS PRN PO 05/06/17 21:00 05/07/17 21:10 Iron Sucrose 200 mg/Sodium Chloride 110 ml @ 110 mls/hr DAILY IV 05/06/17 14:00 05/08/17 09:59 05/07/17 09:42 (Fioricet 325-50-40) 1 tab Q6H PRN PO 05/07/17 09:15 05/08/17 03:07 (Imitrex Inj) 6 mg UNSCH PRN SQ 05/07/17 09:15 05/07/17 16:06 (Ativan) 0.5 mg ONCE ONCE PO 05/08/17 08:30 05/08/17 08:31 (OxyCONTIN CR) 10 mg TID PRN PO 05/07/17 21:00 05/08/17 06:03 A/P Assessment and Plan // Generalized Weakness: c/o ongoing generalized weakness, likely multifactorial-malnutrition and polypharmacy. Seen in ER on 05/01/17 for same, MRI C/T/L Spine w/ mild-moderate canal stenosis C5-6, otherwise normal, pt LEFT AMA at that time, however does not recall doing so. MRI Brain tonight w/ no acute findings, images reviewed by me. PT for eval/tx. = PT recommends home health , however patient does not feel she will be able to go home. asked for Rehab facility as per PT will need Home with [facility] face to face in EMR for Home Health care. //Acute left arm weakness 05/05, Neurology specialist following CT Brain negative, MRI Negative for acute stroke, placed for diagnosis of TIA by Neurology specialist also recommended EEG, Diazepam and Imitrex. Okay to discharge as per Neurology specialist EEG minimal nonspecific changes noted with lot of fast frequencies. //History of renal cell carcinoma stroke after nephrectomy surgery. //Severe malnutrition. BMI 16.0. Possibly related to loose brown toxicity. Continue on lower dose of buspirone. the patient was on TPN about one month ago she gained 10 pound, was continued on B 12 injections and thiamine by talent development specialist. //Gait Instability: reports inability to ambulate, MRI Spine essentially unremarkable as above. PT recommended for Home with [facility]. = Neurology assistance appreciated. MRI changes do not explain generalized weakness. //Pancytopenia as per field support specialist thought related to UTI and transient bone marrow suppression. has History of TTP but at this time no signs of this pathology //Narcotic Dependence: On multiple narcotics in addition to anxiolytics, repeatedly requesting pain medication in ER both last night and this evening, will hold Fioricet/Valium patient asked for Ambien 5 mg re started at a lower dose. = Continue to try to avoid excessive narcotics. //UTI. Urinalysis from 05/03 Escherichia coli. removed Ceftriaxone and send home treated //DVT Prophylaxis: SCD/Teds. Discussed with neurology, Dr. Lerma. We'll get stat CT, stat MRI following CT. Discussed with Dr. LOPEZ, who recommends that if MRI brain is negative, would suggest consulted neurosurgery for possible cervical spinal stenosis. Discharge Planning Discharge Home on [facility] today. Dequan Parrish MD May 08, 2017 08:31
[2017-05-08] MEDS: DIAZEPAM 2 MG TAB PO PRN (08:47)
[2017-05-08] MEDS: IRON SUCROSE INJ 200 MG in SODIUM CHLORIDE 0.9% INJ 100 ML IV SCH (08:51)
[2017-05-08] MEDS: SUMAtriptan INJ 6 MG/0.5 ML VIAL SQ PRN (10:11)
[2017-05-08] MEDS ORDERED: IMIT50TA PO (10:52)
[2017-05-08] MEDS ORDERED: AMBI5TAB PO (10:52)
[2017-05-08] MEDS ORDERED: BUTA1CAP PO (10:52)
--- NOTE | 2017-05-08 10:58 | PD.ONC.PN ---
Subjective Subjective Remarks Afebrile Reports she had a bad migraine overnight Feeling better today after getting Imitrex SQ Excited to be getting discharged today Objective Data Date Time Temp Pulse Resp B/P (MAP) Pulse Ox O2 Delivery O2 Flow Rate FiO2 05/08/17 08:26 98.5 68 16 144/78 (100) 96 05/08/17 04:41 74 05/08/17 04:16 69 05/08/17 04:12 75 05/08/17 04:00 97.3 59 18 135/67 (89) 100 05/08/17 00:00 98.3 64 18 135/70 (91) 97 05/07/17 20:00 98.6 65 18 138/84 (102) 98 05/07/17 17:42 99 21 05/07/17 16:45 97.7 77 18 177/77 (110) 99 05/07/17 12:13 96.9 74 18 155/82 (106) 99 05/07/17 12:00 72 Result Diagram: 05/08/17 0659 05/06/17 0715 Laboratory Results Laboratory Tests Test 05/08/17 06:59 White Blood Count 3.3 TH/MM3 Red Blood Count 4.18 MIL/MM3 Hemoglobin 10.8 GM/DL Hematocrit 33.9 % Mean Corpuscular Volume 81.0 FL Mean Corpuscular Hemoglobin 25.8 PG Mean Corpuscular Hemoglobin Concent 31.9 % Red Cell Distribution Width 21.1 % Platelet Count 114 TH/MM3 Mean Platelet Volume 9.8 FL Neutrophils (%) (Auto) 45.2 % Lymphocytes (%) (Auto) 41.1 % Monocytes (%) (Auto) 10.7 % Eosinophils (%) (Auto) 2.8 % Basophils (%) (Auto) 0.2 % Neutrophils # (Auto) 1.5 TH/MM3 Lymphocytes # (Auto) 1.3 TH/MM3 Monocytes # (Auto) 0.4 TH/MM3 Eosinophils # (Auto) 0.1 TH/MM3 Basophils # (Auto) 0.0 TH/MM3 CBC Comment DIFF FINAL Differential Comment Administered Medications Medications (Trade) Dose Ordered Sig/Davin Route PRN Reason Start Time Stop Time Status Last Admin Dose Admin Sodium Chloride 1,000 ml @ 100 mls/hr Q10H IV 05/02/17 21:25 05/07/17 22:34 Sodium Chloride (NS Flush) 2 ml BID IV FLUSH 05/03/17 09:00 05/07/17 09:00 Acetaminophen (Tylenol) 650 mg Q6H PRN PO FEVER/PAIN SCALE 1 TO 2 05/02/17 21:30 05/05/17 22:40 Senna/Docusate Sodium (Ivonne-Colace) 1 tab BID PO 05/03/17 09:00 05/08/17 08:26 Magnesium Hydroxide (Milk Of Roseanna Lipartha) 30 ml Q12H PRN PO Mild constipation 05/02/17 21:30 05/08/17 09:00 Dicyclomine HCl (Bentyl) 40 mg TID PO 05/03/17 09:00 05/07/17 18:24 Magnesium Oxide (Mag-Ox) 400 mg BID PO 05/03/17 09:00 05/08/17 08:24 Sertraline HCl (Zoloft) 50 mg DAILY PO 05/03/17 09:00 05/08/17 08:24 Cyanocobalamin (Vitamin B12) 1,000 mcg DAILY PO 05/04/17 09:00 05/08/17 08:24 Multivitamins (Theragran) 1 tab DAILY PO 05/04/17 09:00 05/08/17 08:24 Cholecalciferol (Vitamin D3) 5,000 units DAILY PO 05/04/17 09:00 05/08/17 08:23 Megestrol Acetate (Megace) 40 mg Q12HR PO 05/04/17 21:00 05/08/17 08:24 Buspirone HCl (Buspar) 10 mg Q8HR PO 05/04/17 22:00 05/08/17 06:31 Ceftriaxone Sodium 1000 mg/ Sodium Chloride 100 ml @ 200 mls/hr Q24H IV 05/04/17 16:00 05/07/17 16:00 Diazepam (Valium) 2 mg Q8HR PRN PO NAUSEA 05/05/17 10:45 05/08/17 08:47 Zolpidem Tartrate (Ambien) 5 mg HS PRN PO INSOMNIA 05/06/17 21:00 05/07/17 21:10 Acetaminophen/ Butalbital/ Caffeine (Fioricet 325-50-40) 1 tab Q6H PRN PO HEADACHE 05/07/17 09:15 05/08/17 08:47 Sumatriptan Succinate (Imitrex Inj) 6 mg UNSCH PRN SQ MIGRAINE HEADACHE 05/07/17 09:15 05/08/17 10:11 Oxycodone HCl (OxyCONTIN CR) 10 mg TID PRN PO PAIN 5-10 05/07/17 21:00 05/08/17 06:03 Objective Remarks GENERAL: Thin, middle aged female sitting up in bed in no obvious distress. SKIN: Warm and dry. HEAD: Normocephalic. EYES: no injection or drainage. NECK: Supple, trachea midline. CARDIOVASCULAR: +S1/S2 RESPIRATORY: Anterior castillo clear. GASTROINTESTINAL: Abdomen soft, non-tender, nondistended. EXTREMITIES: No cyanosis. No edema NEUROLOGICAL: Awake and alert, normal speech. Left leg weakness. Moves upper extremities without difficulty. Assessment/Plan Problem List: (1) Pancytopenia ICD Codes: D61.818 - Other pancytopenia Plan: --blood count fluctuating over the last several months. --likely has low blood count due to nutrition deficiency. --recent drop in blood count may be due to the urinary tract infection and transient bone marrow suppression. --no evidence of active bleeding noted. not neutropenic. --will give B12 and thiamine. 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 --did not have an confirmed diagnosis of TTP. --platelet count is only slightly low. --There is no evidence of TTP. (3) Left arm weakness ICD Codes: R29.898 - Other symptoms and signs involving the musculoskeletal system Plan: --neurology following --MRI brain unremarkable Assessment 56y/o female with pancytopenia. h/o Renal cell carcinoma in 2004 Stroke after nephrectomy surgery. Depression, anxiety. Chronic aspiration prior to her gastrectomy Myocardial function B12 deficiency. Plan 1. Patient tolerated iron transfusion with less nausea with by mouth Ativan. 2. Okay for discharge from hematology standpoint 3. We'll have her follow-up in the outpatient clinic in approximately 1 month follow-up 4. Facesheet faxed to new patient referrals Attending Statement The exam, history, and the medical decision-making described in the above note were completed with the assistance of the mid-level provider. I reviewed and agree with the findings presented. I attest that I had a [id number] encounter with the patient on the same day, and personally performed and documented my assessment and findings in the medical record. Has headache and was given Imitrex. Just completed another dose of venofer this morning. Gave her ativan before infusion and she tolerated better. Have her f/u hematology clinic as she is going to need periodic iron infusion. Clotilde Byrnes May 08, 2017 10:58 Julius Correa MD May 08, 2017 11:27
--- NOTE | 2017-05-08 11:09 | HHI.DS ---
Discharge Summary Admission Date May 05, 2017 at 11:09 Discharge Date: May 08, 2017 Admitting Diagnosis Generalized weakness with inability to ambulate (1) Generalized weakness ICD Code: R53.1 - Weakness Diagnosis: Principal (2) Gait instability ICD Code: R26.81 - Unsteadiness on feet Diagnosis: Principal (3) Narcotic dependence ICD Code: F11.20 - Opioid dependence, uncomplicated Diagnosis: Principal Procedures None Brief History - From Admission This is a 56-year-old female with PMH of Anxiety, Depression, Renal Cell CA s/p Nephrectomy, h/o Gastrectomy on TPN, Narcotic Dependence and h/o CVA who presented to the ER w/ complaints of generalized weakness and recurrent falls. Seen in ER on 05/01/17 for similar complaints, per ER notes, pt persistently requesting IV Narcotics and c/o inability to ambulate, MRI C/T/L Spine w/ mild- mod flattening of cord C5-6, otherwise negative. Pt L CBC at baseline. EFT AMA at that time. Returns now w/ ongoing complaints. States she doesn't recall leaving AMA yesterday. Pt poor historian. On arrival, BP 147/93, HR 74 , O2 sat 100% on RA. Chemistry also baseline. Troponin negative. MRI Brain tonight w/ no acute findings. CBC/BMP: 05/08/17 0659 05/06/17 0715 Significant Findings Laboratory Tests Test 05/05/17 11:26 05/05/17 16:21 05/06/17 07:15 05/08/17 06:59 Albumin 3.2 GM/DL (3.4-5.0) Calcium Level 8.4 MG/DL (8.5-10.1) Total Bilirubin 0.1 MG/DL (0.2-1.0) Estimat Glomerular Filtration Rate 81 ML/MIN (>89) 87 ML/MIN (>89) White Blood Count 3.7 TH/MM3 (4.0-11.0) 3.3 TH/MM3 (4.0-11.0) Mean Corpuscular Hemoglobin 26.5 PG (27.0-34.0) 25.8 PG (27.0-34.0) Red Cell Distribution Width 21.1 % (11.6-17.2) 21.1 % (11.6-17.2) Platelet Count 131 TH/MM3 (150-450) 114 TH/MM3 (150-450) Lymphocytes # (Auto) 0.9 TH/MM3 (1.0-4.8) Hemoglobin 10.8 GM/DL (11.6-15.3) Hematocrit 33.9 % (35.0-46.0) Mean Corpuscular Hemoglobin Concent 31.9 % (32.0-36.0) Monocytes (%) (Auto) 10.7 % (0.0-8.0) Neutrophils # (Auto) 1.5 TH/MM3 (1.8-7.7) Imaging Last Impressions Head CT 05/05/17 0000 Signed Impressions: Service Date/Time: Friday, May 05, 2017 10:52 - CONCLUSION: Negative for acute process. Ash Chinchilla MD FACR Brain MRI 05/05/17 0000 Signed Impressions: Service Date/Time: Friday, May 05, 2017 11:47 - CONCLUSION: No evidence of stroke. Scattered small nonspecific white matter lesions Donato Wang MD Chest X-Ray 05/02/17 0000 Signed Impressions: Service Date/Time: Tuesday, May 02, 2017 22:25 - CONCLUSION: 1. Minimal basilar atelectasis. No effusion or pneumothorax. Ankit Fong MD PE at Discharge GENERAL: Cachectic. no acute distress. SKIN: Warm and dry. HEAD: Normocephalic. EYES: No scleral icterus. No injection or drainage. NECK: Supple, trachea midline. No JVD. CARDIOVASCULAR: Regular rate and rhythm without murmurs, gallops, or rubs. RESPIRATORY: Breath sounds equal bilaterally. No accessory muscle use. GASTROINTESTINAL: Abdomen soft, non-tender, nondistended. MUSCULOSKELETAL: No cyanosis, or edema. Hospital Course This is a pleasant 56 y/o female admitted due to increased lower extremity numbness and difficulty for ambulation status post multiple falls, has tremor, history of Total gastrectomy and malnutrition, started on TPN about one month ago and gained 10 pounds, has B12 injections and thiamine, followed by Neurology specialist, CT brain negative, MRI Negative for acute stroke, with Assessment of TIA, questioned Complicated Migraine, recommended EEG, Diazepam and Imitrex, hearing specialist following due to Pancytopenia, thought related to UTI and transient bone marrow suppression replacing Vitamin B12 and Thiamine, 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 Seen in her bedroom stable, she wants to get Fioricet for Headaches, asked for Ambien, neurology already started her On Imitrex. will follow specialist recommendations. as per Oncology recommended Iron Sucrose 200 mg IV for 3 days. No nausea, vomit or diarrhea, started regular diet. 05/07: Stable in her bedroom, she will need Iron infusion as per hearing specialist, will discuss with [employer] Over[employer]uler if the final dose for tomorrow may be given at home I do not see why the patient can not be discharged today, Okay to discharge from Medicine standpoint if okay with Neurology and hearing specialist. I obtained the discharge by hearing specialist and Neurology specialist but She states she has the next Iron infusion for tomorrow in am and needs to receive it. 05/08: Seen in her Bedroom in the presence of nurse Mr Dodson she has improved her Nausea, no vomit or diarrhea, asking for scripts to go home. Assessment and Plan // Generalized Weakness: c/o ongoing generalized weakness, likely multifactorial-malnutrition and polypharmacy. Seen in ER on 05/01/17 for same, MRI C/T/L Spine w/ mild-moderate canal stenosis C5-6, otherwise normal, pt LEFT AMA at that time, however does not recall doing so. MRI Brain tonight w/ no acute findings, images reviewed by me. PT for eval/tx. = PT recommends home health , however patient does not feel she will be able to go home. asked for Rehab facility as per PT will need Home with [facility] face to face in EMR for Home Health care. //Acute left arm weakness 05/05, Neurology specialist following CT Brain negative, MRI Negative for acute stroke, placed for diagnosis of TIA by Neurology specialist also recommended EEG, Diazepam and Imitrex. Okay to discharge as per Neurology specialist EEG minimal nonspecific changes noted with lot of fast frequencies. //History of renal cell carcinoma stroke after nephrectomy surgery. //Severe malnutrition. BMI 16.0. Possibly related to loose brown toxicity. Continue on lower dose of buspirone. the patient was on TPN about one month ago she gained 10 pound, was continued on B 12 injections and thiamine by reliability specialist. //Gait Instability: reports inability to ambulate, MRI Spine essentially unremarkable as above. PT recommended for Home with [facility]. = Neurology assistance appreciated. MRI changes do not explain generalized weakness. //Pancytopenia as per hearing specialist thought related to UTI and transient bone marrow suppression. has History of TTP but at this time no signs of this pathology //Narcotic Dependence: On multiple narcotics in addition to anxiolytics, repeatedly requesting pain medication in ER both last night and this evening, will hold Fioricet/Valium patient asked for Ambien 5 mg re started at a lower dose. = Continue to try to avoid excessive narcotics. //UTI. Urinalysis from 05/03 Escherichia coli. removed Ceftriaxone and send home treated //DVT Prophylaxis: SCD/Teds. Discussed with neurology, Dr. Lerma. We'll get stat CT, stat MRI following CT. Discussed with Dr. LOPEZ, who recommends that if MRI brain is negative, would suggest consulted neurosurgery for possible cervical spinal stenosis. Discharge Planning Discharge Home on [facility] today. Pt Condition on Discharge: Stable Discharge Disposition: Disch w/ Home Health Serv Discharge Time: > 30 minutes Discharge Instructions DIET: Follow Instructions for: As Tolerated, No Restrictions Activities you can perform: Regular-No Restrictions Dequan Parrish MD May 08, 2017 11:09
== END 2017-05-08 13:49 | disposition home health service (06) | DRG 641 ==
LOC: NEPC 16:22 → NEDA 21:03 → NEPFCDU 22:13 → OBSVTOIN 05-05 11:09 → N05B 05-05 13:02
PROVIDERS: ADMIT Internal Medicine; ATTEND Internal Medicine
PROC: 30233N1 Transfusion of Nonautologous Red Blood Cells into Peripheral Vein, Percutaneous Approach (ICD-10-PCS; principal; 2017-05-05)
DX: E43 Unspecified severe protein-calorie malnutrition (principal); D61.818 Other pancytopenia; F11.20 Opioid dependence, uncomplicated; M48.02 Spinal stenosis, cervical region; K31.84 Gastroparesis; M41.9 Scoliosis, unspecified; N39.0 Urinary tract infection, site not specified; Z68.1 Body mass index [BMI] 19.9 or less, adult; G43.109 Migraine with aura, not intractable, without status migrainosus; I10 Essential (primary) hypertension; F32.9 Major depressive disorder, single episode, unspecified; M51.34 Other intervertebral disc degeneration, thoracic region; F41.9 Anxiety disorder, unspecified; M25.78 Osteophyte, vertebrae; K44.9 Diaphragmatic hernia without obstruction or gangrene; I25.2 Old myocardial infarction; I69.344 Monoplegia of lower limb following cerebral infarction affecting left non-dominant side; G89.29 Other chronic pain; K30 Functional dyspepsia; R63.4 Abnormal weight loss; R29.6 Repeated falls; M21.372 Foot drop, left foot; R25.1 Tremor, unspecified; E53.8 Deficiency of other specified B group vitamins; Z85.528 Personal history of other malignant neoplasm of kidney; Z90.3 Acquired absence of stomach [part of]; Z90.5 Acquired absence of kidney; R42 Dizziness and giddiness; B96.20 Unspecified Escherichia coli [E. coli] as the cause of diseases classified elsewhere
CPT/HCPCS: 36430; 70450; 70551; 71010; 76937; 80048; 80053; 80307; 81001; 82533; 82550; 82607; 82728; 82747; 82948; 83010; 83540; 83550; 83605; 83615; 83921; 84146; 84439; 84443; 84480; 84484; 85025; 85044; 85384; 85610; 85730; 86850; 86900; 86901; 86920; 86922; 87040; 87077; 87086; 87186; 93005; 95819; 96361; 96365; 96366; 96372; 96375; G0378; G8987-GO; G8988-GO; J0696; J1200; J1630; J1756; J3030; J3411; J3420; J7030; P9016

== ENCOUNTER 2017-06-13 05:10 | Emergency (ER) | payer BC ==
[~2017-06-13] VITALS: Ht 157.5 cm; Wt 45.0 kg
[~2017-06-13 05:10] MED LIST changes: -AMBI10TA PO; +AMBI5TAB PO; +IMIT50TA PO; -POTA10CA PO
[2017-06-13 05:11] VITALS: BP 161/107; PULSE 100; RESP 16; TEMP 98.8; O2SAT 96
--- NOTE | 2017-06-13 05:57 | PD ---
HPI Chief Complaint: Headache Time Seen by Provider: 05:53 Travel History International Travel<30 days: No Contact w/Intl Traveler<30days: No Traveled to known affect area: No History of Present Illness HPI 57-year-old female with history of migraine headaches and cervical disc disease. Patient presents with 2 day headache consistent with her migraine history with associated photophobia and dry heaves. Patient has had previous gastrectomy and denies vomiting history. Patient states that she is used sumatriptan and Fioricet without symptomatic relief. Patient is allergic to multiple antinausea medications but has been able to tolerate Ativan and Benadryl in the past. Patient denies fever or chills. Patient denies fall or injury. Patient denies chest pain or shortness of breath. Patient denies upper extremity or lower extremity numbness tingling or weakness or ataxia gait. Patient denies bladder or bowel dysfunction or saddle anesthesia. Patient reports headache is not sudden onset thunderclap or worst ever but is unable to break with her typical regimen. PFSH Past Medical History Hx Anticoagulant Therapy: No Asthma: No Blood Disorders: No Anxiety: Yes Depression: Yes Heart Rhythm Problems: No Cancer: Yes (KID[place] ) Cardiovascular Problems: Yes ([place]) High Cholesterol: No Chemotherapy: No Chest Pain: No Congestive Heart Failure: No COPD: No Cerebrovascular Accident: Yes Diabetes: No Diminished Hearing: No Endocrine: No Gastrointestinal Disorders: Yes (GASTRECTOMY, CHRONIC ABDOMINAL PAIN ) GERD: No Genitourinary: Yes (OCCASSIONAL UTI) Headaches: Yes Hiatal Hernia: Yes Hypertension: Yes Immune Disorder: No Implanted Vascular Access Dvce: No Kidney Stones: No Musculoskeletal: No Neurologic: Yes (CVA 2004) Psychiatric: No Reproductive: No Respiratory: No Immunizations Current: Yes Migraines: Yes Myocardial Infarction: Yes (2004) Pneumonia: Yes Radiation Therapy: No Renal Failure: No Seizures: Yes Sleep Apnea: No Thyroid Disease: No Ulcer: No Menopausal: Yes : 1 Para: 1 Miscarriage: 0 : 0 Ectopic : No Ovarian Cysts: No Dilation and Curettage (D&C): Yes Tubal Ligation: Yes Past Surgical History Abdominal Surgery: Yes (total gastrectomy w/pouch 2002, hernia repair) Appendectomy: Yes Cardiac Surgery: Yes (REPAIRED HOLE IN HEART) Cholecystectomy: Yes Genitourinary Surgery: Yes (RIGHT NEPHRECTOMY) Gynecologic Surgery: Yes Hysterectomy: Yes Thoracic Surgery: No Tonsillectomy: Yes Other Surgery: Yes (GASTRECTOMY, RIGHT KIDNEY REMOVAL, HERNIA REPAIR, GALLBLADDER, TONSILS) Social History Alcohol Use: No (PT DENIES) Tobacco Use: No (PT DENIES) Substance Use: No (PT DENIES) Allergies-Medications (Allergen,Severity, Reaction): Coded Allergies: MRI PRECAUTION (Verified Allergy, Severe, MRI contrast allergy, 06/13/17) anaphylaxis Sulfa (Sulfonamide Antibiotics) (Verified Allergy, Severe, Rash, 06/13/17) gadobenic acid (Verified Allergy, Severe, Anaphylaxis, 06/13/17) gadodiamide (Verified Allergy, Severe, Anaphylaxis, 06/13/17) gadoteridol (Verified Allergy, Severe, Anaphylaxis, 06/13/17) ketorolac (Verified Allergy, Severe, Shortness of Breath, 06/13/17) metoclopramide (Verified Allergy, Severe, Shortness of Breath, 06/13/17) morphine (Verified Allergy, Severe, Hives, 06/13/17) ondansetron (Verified Allergy, Severe, Shortness of Breath, 06/13/17) penicillin G (Verified Allergy, Severe, Rash, 06/13/17) prochlorperazine (Verified Allergy, Severe, Shortness of Breath, 06/13/17) promethazine (Verified Allergy, Severe, Shortness of Breath, 06/13/17) shellfish derived (Verified Allergy, Severe, Anaphylaxis, 06/13/17) trimethobenzamide (Verified Allergy, Severe, Shortness of Breath, 06/13/17) Reported Meds & Prescriptions Reported Meds & Active Scripts Active Imitrex (Sumatriptan Succinate) 50 Mg Tab 50 Mg PO ONCE PRN If a satisfactory response has not been obtained at 2 hours, a second dose may be administered Ambien (Zolpidem Tartrate) 5 Mg Tab 5 Mg PO HS PRN Fioricet (Amjlovslga-Dnluixhddthrl-Ouzyvtqi) 50-300-40 Mg Cap 20 Mg PO Q6H PRN Reported Amitriptyline (Amitriptyline HCl) 50 Mg Tab 50 Mg PO HS Cymbalta DR (Duloxetine HCl) 30 Mg Capdr 30 Mg PO DAILY Oxycontin (Oxycodone HCl) 10 Mg Tab 10 Mg PO Q8HR Vitamin E (Vitamin E Mixed) 400 Unit Tablet 400 Units PO DAILY Vitamin D-1000 (Cholecalciferol) 1,000 Unit Tab 1,000 Units PO DAILY Magnesium Oxide 400 Mg Tab 400 Mg PO BID Calcitrate (Calcium Citrate-Vitamin D) 315-250 Mg-Unit Tab 1 Tab PO QID Dicyclomine (Dicyclomine HCl) 20 Mg Tab 40 Mg PO TID Zoloft (Sertraline HCl) 50 Mg Tab 50 Mg PO DAILY Dulcolax Stool Softener (Docusate Sodium) 100 Mg Cap 100 Mg PO HS Valium (Diazepam) 10 Mg Tab 3 Mg PO TID Buspirone (Buspirone HCl) 7.5 Mg Tab 30 Mg PO TID Review of Systems Except as stated in HPI: all other systems reviewed are Neg Physical Exam Narrative GENERAL: Well-developed elderly appearing thin female in no acute distress no respiratory distress; GCS 15 SKIN: Warm and dry. HEAD: Atraumatic. Normocephalic. EYES: Pupils equal and round. No scleral icterus. No injection or drainage. ENT: No nasal bleeding or discharge. Mucous membranes pink and moist. NECK: Trachea midline. No JVD. Supple no meningismus no nuchal rigidity. CARDIOVASCULAR: Regular rate and rhythm. RESPIRATORY: No accessory muscle use. Clear to auscultation. Breath sounds equal bilaterally. GASTROINTESTINAL: Abdomen soft, non-tender, nondistended. Hepatic and splenic margins not palpable. MUSCULOSKELETAL: Extremities without clubbing, cyanosis, or edema. No obvious deformities. NEUROLOGICAL: Awake and alert. GCS 15. No obvious cranial nerve deficits. Motor grossly within normal limits. Five out of 5 muscle strength in the arms and legs. Normal speech. PSYCHIATRIC: Appropriate mood and affect; insight and judgment normal. Data Data Last Documented VS Vital Signs Date Time Temp Pulse Resp B/P (MAP) Pulse Ox O2 Delivery O2 Flow Rate FiO2 06/13/17 06:14 99 Room Air 06/13/17 06:14 90 18 06/13/17 05:11 98.8 Orders Orders Ecg Monitoring (06/13/17 05:54) Iv Access Insert/Monitor (06/13/17 05:54) Oximetry (06/13/17 05:54) Sodium Chloride 0.9% Flush (Ns Flush) (06/13/17 06:00) Diphenhydramine Inj (Benadryl Inj) (06/13/17 06:00) Sodium Chlor 0.9% 1000 Ml Inj (Ns 1000 M (06/13/17 06:00) Oxycodone-Acetamin 10-325 Mg (Percocet 1 (06/13/17 06:45) Sumatriptan Succinate (Imitrex) (06/13/17 07:15) MDM Medical Decision Making Medical Screen Exam Complete: Yes Emergency Medical Condition: Yes Medical Record Reviewed: Yes Differential Diagnosis Recurrent migraine, tension headache, cervical spine sprain strain, ICH Narrative Course Patient administered 1 L normal saline along with Benadryl 25 mg IV Patient states nausea improved requesting narcotic pain medication states typically receives Dilaudid; patient provided oral dose of percocet It is 7:14 AM patient states she is clinically improved but request again a dose of Imitrex states that she took a dose yesterday but ran out of her medications at that time is also requesting a refill prescription for her Imitrex. Diagnosis Primary Impression: Migraine headache Additional Impression: Medication refill Referrals: Primary Care Physician call for appointment Patient Instructions: General Instructions Additional Instructions: Increase fluid hydration Take medication as prescribed Follow-up with her primary care provider Return to the emergency department for any concerns or change in condition Med/Other Pt SpecificInfo: Prescription(s) given Scripts Sumatriptan (Sumatriptan) 50 Mg Tab 50 MG PO ONCE Y for MIGRAINE HEADACHE, #15 TAB 0 Refills If a satisfactory response has not been obtained at 2 hours, a second dose may be administered Prov: Naye Bruno MD 06/13/17 Disposition: 01 DISCHARGE HOME Condition: Stable Naye Bruno MD Jun 13, 2017 05:57
[2017-06-13] MEDS ORDERED: SODIUM CHLORIDE 0.9% FLUSH 10 ML FLUSH IVF PRN (06:00)
[2017-06-13] MEDS ORDERED: diphenhydrAMINE HCL 50 MG/ML VIAL IVP ONE (06:00)
[2017-06-13] MEDS ORDERED: SODIUM CHLOR 0.9% 1000 ML INJ 1,000 ML IV ONE (06:00)
[2017-06-13 06:14] VITALS: BP 170/87; PULSE 90; RESP 18; O2SAT 99
[2017-06-13] MEDS ORDERED: CYMB30CA PO (06:24)
[2017-06-13] MEDS ORDERED: AMIT50TA3 PO (06:24)
[2017-06-13] MEDS ORDERED: oxyCODONE/ACETAMINOPHEN 10 MG/325 MG TAB PO ONE (06:45)
[2017-06-13] MEDS ORDERED: SUMAtriptan SUCCINATE 50 MG TAB PO ONE (07:15)
[2017-06-13] MEDS ORDERED: SUMA50TA2 PO (07:17)
[2017-06-13 07:37] VITALS: RESP 17
== END 2017-06-13 07:48 | disposition home or self-care (01) ==
LOC: NEPC 05:10
DX: G43.909 Migraine, unspecified, not intractable, without status migrainosus (principal); F41.9 Anxiety disorder, unspecified; F32.9 Major depressive disorder, single episode, unspecified; I25.2 Old myocardial infarction; I10 Essential (primary) hypertension; Z76.0 Encounter for issue of repeat prescription; Z86.73 Personal history of transient ischemic attack (TIA), and cerebral infarction without residual deficits; Z79.899 Other long term (current) drug therapy; Z88.0 Allergy status to penicillin
CPT/HCPCS: 96361; 96374; 99284; J1200; J7030

== ENCOUNTER 2017-07-16 05:20 | Emergency (ER) | payer BC ==
[~2017-07-16] VITALS: Ht 157.5 cm; Wt 42.5 kg
[~2017-07-16 05:20] MED LIST changes: +AMIT50TA3 PO; +CYMB30CA PO; +SUMA50TA2 PO
[2017-07-16 05:22] VITALS: BP 162/95; PULSE 79; RESP 16; TEMP 98.3; O2SAT 100
[2017-07-16] MEDS ORDERED: DIAZEPAM 5 MG TAB PO ONE (06:15)
[2017-07-16] MEDS ORDERED: traMADol HCL 50 MG TAB PO ONE (06:15)
[2017-07-16] MEDS ORDERED: CYCL10TA PO (06:17)
[2017-07-16] MEDS ORDERED: TRAM50 PO (06:17)
--- NOTE | 2017-07-16 06:18 | PD ---
HPI . Back pain/neck pain Chief Complaint: Back/ Neck Pain or Injury Time Seen by Provider: 05:34 Travel History International Travel<30 days: No Contact w/Intl Traveler<30days: No Traveled to known affect area: No History of Present Illness HPI 57-year-old female history of cervical discopathy, multiple painful etiologies, under the care of a pain medicine doctor, presents with complaints of having exacerbation of her neck pain. Patient states she has pain that is 10 out of 10 severity. Patient states she is having difficulty moving her neck secondary to same. Denies fever chills sweats, denies stiff neck, notes bilateral hand tingling/paresthesias, denies any weakness or numbness. PFSH Past Medical History Narrative Medical Past medical history reviewed Hx Anticoagulant Therapy: No Asthma: No Blood Disorders: No Anxiety: Yes Depression: Yes Heart Rhythm Problems: No Cancer: Yes ([place] ) Cardiovascular Problems: Yes ([place] 2004, repair 2005) High Cholesterol: No Chemotherapy: No Chest Pain: No Congestive Heart Failure: No COPD: No Cerebrovascular Accident: Yes (Stroke 2004) Diabetes: No Diminished Hearing: No Endocrine: No Gastrointestinal Disorders: Yes (GASTRECTOMY, CHRONIC ABDOMINAL PAIN ) GERD: No Genitourinary: Yes (OCCASSIONAL UTI) Headaches: Yes Hiatal Hernia: Yes Hypertension: Yes Immune Disorder: No Implanted Vascular Access Dvce: No Kidney Stones: No Musculoskeletal: No Neurologic: Yes (CVA 2004) Psychiatric: No Reproductive: No Respiratory: No Immunizations Current: Yes Migraines: Yes Myocardial Infarction: Yes (2004) Pneumonia: Yes Radiation Therapy: No Renal Failure: No Seizures: Yes Sleep Apnea: No Thyroid Disease: No Ulcer: No Tetanus Vaccination: < 5 Years Influenza Vaccination: Yes ?: Not Menopausal: Yes : 1 Para: 1 Miscarriage: 0 : 0 Ectopic : No Ovarian Cysts: No Dilation and Curettage (D&C): Yes Tubal Ligation: Yes Past Surgical History Abdominal Surgery: Yes (total gastrectomy w/pouch 2002, hernia repair) Appendectomy: Yes Cardiac Surgery: Yes (REPAIRED HOLE IN HEART) Cholecystectomy: Yes Genitourinary Surgery: Yes (RIGHT NEPHRECTOMY) Gynecologic Surgery: Yes Hysterectomy: Yes Thoracic Surgery: No Tonsillectomy: Yes Other Surgery: Yes (GASTRECTOMY, RIGHT KIDNEY REMOVAL, HERNIA REPAIR, GALLBLADDER, TONSILS) Social History Alcohol Use: No (PT DENIES) Tobacco Use: No (PT DENIES) Substance Use: No (PT DENIES) Allergies-Medications (Allergen,Severity, Reaction): Coded Allergies: MRI PRECAUTION (Verified Allergy, Severe, MRI contrast allergy, 06/13/17) anaphylaxis Sulfa (Sulfonamide Antibiotics) (Verified Allergy, Severe, Rash, 06/13/17) gadobenic acid (Verified Allergy, Severe, Anaphylaxis, 06/13/17) gadodiamide (Verified Allergy, Severe, Anaphylaxis, 06/13/17) gadoteridol (Verified Allergy, Severe, Anaphylaxis, 06/13/17) ketorolac (Verified Allergy, Severe, Shortness of Breath, 06/13/17) metoclopramide (Verified Allergy, Severe, Shortness of Breath, 06/13/17) morphine (Verified Allergy, Severe, Hives, 06/13/17) ondansetron (Verified Allergy, Severe, Shortness of Breath, 06/13/17) penicillin G (Verified Allergy, Severe, Rash, 06/13/17) prochlorperazine (Verified Allergy, Severe, Shortness of Breath, 06/13/17) promethazine (Verified Allergy, Severe, Shortness of Breath, 06/13/17) shellfish derived (Verified Allergy, Severe, Anaphylaxis, 06/13/17) trimethobenzamide (Verified Allergy, Severe, Shortness of Breath, 06/13/17) Reported Meds & Prescriptions Reported Meds & Active Scripts Active Imitrex (Sumatriptan Succinate) 50 Mg Tab 50 Mg PO ONCE PRN If a satisfactory response has not been obtained at 2 hours, a second dose may be administered Ambien (Zolpidem Tartrate) 5 Mg Tab 5 Mg PO HS PRN Fioricet (Flvgaqnkbp-Sivvbzqezvidd-Olfqgvgf) 50-300-40 Mg Cap 20 Mg PO Q6H PRN Reported Amitriptyline (Amitriptyline HCl) 50 Mg Tab 50 Mg PO HS Oxycontin (Oxycodone HCl) 10 Mg Tab 10 Mg PO Q8HR Vitamin E (Vitamin E Mixed) 400 Unit Tablet 400 Units PO DAILY Narrative Medication Allergies and medications reviewed Review of Systems Except as stated in HPI: all other systems reviewed are Neg General / Constitutional: No: Fever Eyes: No: Visual changes HENT: No: Headaches Cardiovascular: No: Chest Pain or Discomfort Respiratory: No: Shortness of Breath Gastrointestinal: No: Abdominal Pain Genitourinary: No: Dysuria Musculoskeletal: Positive: Pain Skin: No Rash Neurologic: No: Weakness Psychiatric: No: Depression Endocrine: No: Polydipsia Hematologic/Lymphatic: No: Easy Bruising Physical Exam Narrative GENERAL: Awake alert oriented 3 no acute distress SKIN: Warm and dry. HEAD: Atraumatic. Normocephalic. EYES: Pupils equal and round. No scleral icterus. No injection or drainage. ENT: No nasal bleeding or discharge. Mucous membranes pink and moist. NECK: Trachea midline. No JVD. Supple full range of motion. Patient has no difficulty rotating neck to left and right or performing flexion and extension to follow movement and speak to examiner and staff. Patient developed neck stiffness or rigidity during exam only without palpation CARDIOVASCULAR: Regular rate and rhythm. RESPIRATORY: No accessory muscle use. Clear to auscultation. Breath sounds equal bilaterally. GASTROINTESTINAL: Abdomen soft, non-tender, nondistended. Hepatic and splenic margins not palpable. MUSCULOSKELETAL: Extremities without clubbing, cyanosis, or edema. No obvious deformities. NEUROLOGICAL: Awake and alert. No obvious cranial nerve deficits. Motor grossly within normal limits. Five out of 5 muscle strength in the arms and legs. Normal speech. PSYCHIATRIC: Appropriate mood and affect; insight and judgment normal. Data Data Last Documented VS Vital Signs Date Time Temp Pulse Resp B/P (MAP) Pulse Ox O2 Delivery O2 Flow Rate FiO2 07/16/17 05:22 98.3 79 16 162/95 (117) 100 Room Air Orders Orders Tramadol (Ultram) (07/16/17 06:15) Diazepam (Valium) (07/16/17 06:15) [facility] Medical Decision Making Medical Screen Exam Complete: Yes Emergency Medical Condition: Yes Medical Record Reviewed: Yes Differential Diagnosis Neck pain, somatizations Narrative Course Patient given pain medications and muscle relaxants with some efficacy. Encouraged to follow-up with your pain medicine specialist Diagnosis Primary Impression: Neck pain Patient Instructions: Acute Neck Pain (ED), General Instructions Additional Instructions: Pain medications and muscle relaxants as prescribed. Follow-up with your pain medicine doctor. Return for worsening Scripts Cyclobenzaprine (Flexeril) 10 Mg Tab 10 MG PO TID for Muscle Spasm, #10 TAB 0 Refills Prov: Jose Sutherland MD 07/16/17 Tramadol (Ultram) 50 Mg Tab 50 MG PO Q8H Y for PAIN, #10 TAB 0 Refills Prov: Jose Sutherland MD 07/16/17 Disposition: 01 DISCHARGE HOME Condition: Stable Jose Sutherland MD Jul 16, 2017 06:18
[2017-07-16] MEDS ORDERED: SODIUM CHLOR 0.9% 1000 ML INJ 1,000 ML IV ONE (06:30)
[2017-07-16] MEDS ORDERED: SUMAtriptan INJ 6 MG/0.5 ML VIAL SQ ONE (06:30)
[2017-07-17] MEDS ORDERED: MEDR4PAK PO (18:32)
== END 2017-07-16 08:27 | disposition home or self-care (01) ==
LOC: NEPE 05:20
DX: M54.2 Cervicalgia (principal); F41.9 Anxiety disorder, unspecified; F32.9 Major depressive disorder, single episode, unspecified; I10 Essential (primary) hypertension; I25.2 Old myocardial infarction; R56.9 Unspecified convulsions; Z86.73 Personal history of transient ischemic attack (TIA), and cerebral infarction without residual deficits; Z79.899 Other long term (current) drug therapy; Z88.2 Allergy status to sulfonamides
CPT/HCPCS: 96372; 99283; J3030; J7030

== ENCOUNTER 2017-07-17 16:19 | Emergency (ER) | payer BC ==
[~2017-07-17] VITALS: Ht 157.5 cm; Wt 42.5 kg
[~2017-07-17 16:19] MED LIST changes: +CYCL10TA PO; +TRAM50 PO
[2017-07-17 16:21] VITALS: BP 159/89; PULSE 97; RESP 14; TEMP 98.7; O2SAT 99
[2017-07-17] MEDS ORDERED: SODIUM CHLOR 0.9% 1000 ML INJ 1,000 ML IV ONE (16:56)
[2017-07-17 17:00] VITALS: O2SAT 99
[2017-07-17] MEDS ORDERED: SODIUM CHLORIDE 0.9% FLUSH 10 ML FLUSH IVF PRN (17:00)
[2017-07-17] MEDS ORDERED: diphenhydrAMINE HCL 50 MG/ML VIAL IVP ONE (17:00)
--- NOTE | 2017-07-17 17:12 | PD ---
HPI Chief Complaint: Numbness/Tingling Time Seen by Provider: 16:46 Travel History International Travel<30 days: No Contact w/Intl Traveler<30days: No Traveled to known affect area: No History of Present Illness HPI The patient is a 57-year-old female who presents to the emergency department for headache and neck pain. The patient states she developed neck pain 4 days ago, was seen in the emergency department yesterday for her neck pain. She then developed a headache earlier today which is global but not associated with any photophobia, nausea, or vomiting. The patient does have a history of migraines in the past and saw her pain interventional list [place] earlier this week. However, she continues to have pain. She also complains of weakness and the entire body as well as numbness of the entire body, left greater than the right, which she should beast or previous stroke. The patient denies any chest pain, shortness of breath, nausea, vomiting, or abdominal pain. Symptoms are moderate. The patient also complains of intermittent blurred vision. PFSH Past Medical History Hx Anticoagulant Therapy: No Asthma: No Blood Disorders: No Anxiety: Yes Depression: Yes Heart Rhythm Problems: No Cancer: Yes (KIDNEY ) Cardiovascular Problems: Yes ([place] 2004, repair 2005) High Cholesterol: No Chemotherapy: No Chest Pain: No Congestive Heart Failure: No COPD: No Cerebrovascular Accident: Yes (2004) Diabetes: No Diminished Hearing: No Endocrine: No Gastrointestinal Disorders: Yes (GASTRECTOMY, CHRONIC ABDOMINAL PAIN ) GERD: No Genitourinary: Yes (OCCASSIONAL UTI) Headaches: Yes Hiatal Hernia: Yes Hypertension: Yes Immune Disorder: No Implanted Vascular Access Dvce: No Kidney Stones: No Musculoskeletal: No Neurologic: Yes (CVA 2004) Psychiatric: No Reproductive: No Respiratory: No Immunizations Current: Yes Migraines: Yes Myocardial Infarction: Yes (2004) Pneumonia: Yes Radiation Therapy: No Renal Failure: No Seizures: Yes Sleep Apnea: No Thyroid Disease: No Ulcer: No ?: Not Menopausal: Yes : 1 Para: 1 Miscarriage: 0 : 0 Ectopic : No Ovarian Cysts: No Dilation and Curettage (D&C): Yes Tubal Ligation: Yes Past Surgical History Abdominal Surgery: Yes (total gastrectomy w/pouch 2002, hernia repair) Appendectomy: Yes Cardiac Surgery: Yes (REPAIRED HOLE IN HEART) Cholecystectomy: Yes Genitourinary Surgery: Yes (RIGHT NEPHRECTOMY) Gynecologic Surgery: Yes Hysterectomy: Yes Thoracic Surgery: No Tonsillectomy: Yes Other Surgery: Yes (GASTRECTOMY, RIGHT KIDNEY REMOVAL, HERNIA REPAIR, GALLBLADDER, TONSILS) Social History Alcohol Use: No (PT DENIES) Tobacco Use: No (PT DENIES) Substance Use: No (PT DENIES) Allergies-Medications (Allergen,Severity, Reaction): Coded Allergies: MRI PRECAUTION (Verified Allergy, Severe, MRI contrast allergy, 06/13/17) anaphylaxis Sulfa (Sulfonamide Antibiotics) (Verified Allergy, Severe, Rash, 06/13/17) gadobenic acid (Verified Allergy, Severe, Anaphylaxis, 06/13/17) gadodiamide (Verified Allergy, Severe, Anaphylaxis, 06/13/17) gadoteridol (Verified Allergy, Severe, Anaphylaxis, 06/13/17) ketorolac (Verified Allergy, Severe, Shortness of Breath, 06/13/17) metoclopramide (Verified Allergy, Severe, Shortness of Breath, 06/13/17) morphine (Verified Allergy, Severe, Hives, 06/13/17) ondansetron (Verified Allergy, Severe, Shortness of Breath, 06/13/17) penicillin G (Verified Allergy, Severe, Rash, 06/13/17) prochlorperazine (Verified Allergy, Severe, Shortness of Breath, 06/13/17) promethazine (Verified Allergy, Severe, Shortness of Breath, 06/13/17) shellfish derived (Verified Allergy, Severe, Anaphylaxis, 06/13/17) trimethobenzamide (Verified Allergy, Severe, Shortness of Breath, 06/13/17) Reported Meds & Prescriptions Reported Meds & Active Scripts Active Flexeril (Cyclobenzaprine HCl) 10 Mg Tab 10 Mg PO TID Ultram (Tramadol HCl) 50 Mg Tab 50 Mg PO Q8H PRN Imitrex (Sumatriptan Succinate) 50 Mg Tab 50 Mg PO ONCE PRN If a satisfactory response has not been obtained at 2 hours, a second dose may be administered Ambien (Zolpidem Tartrate) 5 Mg Tab 5 Mg PO HS PRN Fioricet (Dqzextdaxv-Izzgdtlivfgnp-Qpaxwnyi) 50-300-40 Mg Cap 20 Mg PO Q6H PRN Reported Amitriptyline (Amitriptyline HCl) 50 Mg Tab 50 Mg PO HS Oxycontin (Oxycodone HCl) 10 Mg Tab 10 Mg PO Q8HR Vitamin E (Vitamin E Mixed) 400 Unit Tablet 400 Units PO DAILY Review of Systems Except as stated in HPI: all other systems reviewed are Neg General / Constitutional: No: Fever Eyes: Positive: Blurred Vision, Visual changes HENT: Positive: Headaches, Neck Pain Cardiovascular: No: Chest Pain or Discomfort Respiratory: No: Shortness of Breath Gastrointestinal: No: Nausea, Vomiting, Abdominal Pain Musculoskeletal: Positive: Weakness Neurologic: Positive: Paresthesia, Sensory Disturbance Physical Exam Narrative GENERAL: Awake, alert, 57 year-old female appears her stated age and is in no acute respiratory distress. SKIN: Focused skin assessment warm/dry. HEAD: Atraumatic. Normocephalic. EYES: Pupils equal and round. 3 mm bilateral reactive. EOMs are intact. Able to see fingers at a distance of 2 feet without difficulty. ENT: No nasal bleeding or discharge. Mucous membranes pink and moist. NECK: Trachea midline. No JVD. CARDIOVASCULAR: Regular rate and rhythm. No murmur appreciated. RESPIRATORY: No accessory muscle use. Clear to auscultation. Breath sounds equal bilaterally. GASTROINTESTINAL: Abdomen soft, non-tender, nondistended. No rebound tenderness. MUSCULOSKELETAL: No obvious deformities. No clubbing. No cyanosis. No edema. NEUROLOGICAL: Awake and alert. No obvious cranial nerve deficits. Motor grossly within normal limits. Normal speech. No obvious drift of the upper or lower extremities. However, each time exam is repeated at changes. Sensation is symmetric on the face, arms, and legs. She is oriented to person place. Her speech is slow and stuttering at times, however, it will normalize and her speech will be a normal hilda. PSYCHIATRIC: Odd affect. Data Data Last Documented VS Vital Signs Date Time Temp Pulse Resp B/P (MAP) Pulse Ox O2 Delivery O2 Flow Rate FiO2 07/17/17 17:00 99 Room Air 07/17/17 16:21 98.7 97 14 Orders Orders Complete Blood Count With Diff (07/17/17 16:56) Comprehensive Metabolic Panel (07/17/17 16:56) Prothrombin Time / Inr (Pt) (07/17/17 16:56) Act Partial Throm Time (Ptt) (07/17/17 16:56) Ct Brain W/O Iv Contrast(Rout) (07/17/17 16:56) Ecg Monitoring (07/17/17 16:56) Iv Access Insert/Monitor (07/17/17 16:56) Oximetry (07/17/17 16:56) Sodium Chloride 0.9% Flush (Ns Flush) (07/17/17 17:00) Diphenhydramine Inj (Benadryl Inj) (07/17/17 17:00) Sodium Chlor 0.9% 1000 Ml Inj (Ns 1000 M (07/17/17 16:56) Ct Cerv Spine W/O Contrast (07/17/17 ) Urinalysis - C+S If Indicated (07/17/17 17:02) Sumatriptan Inj (Imitrex Inj) (07/17/17 18:15) Dexamethasone Inj (Decadron Inj) (07/17/17 18:15) Labs Laboratory Tests Test 07/17/17 17:10 White Blood Count 3.9 TH/MM3 Red Blood Count 3.82 MIL/MM3 Hemoglobin 12.4 GM/DL Hematocrit 36.4 % Mean Corpuscular Volume 95.1 FL Mean Corpuscular Hemoglobin 32.3 PG Mean Corpuscular Hemoglobin Concent 34.0 % Red Cell Distribution Width 20.2 % Platelet Count 167 TH/MM3 Mean Platelet Volume 8.6 FL Neutrophils (%) (Auto) 53.0 % Lymphocytes (%) (Auto) 38.0 % Monocytes (%) (Auto) 7.0 % Eosinophils (%) (Auto) 1.8 % Basophils (%) (Auto) 0.2 % Neutrophils # (Auto) 2.1 TH/MM3 Lymphocytes # (Auto) 1.5 TH/MM3 Monocytes # (Auto) 0.3 TH/MM3 Eosinophils # (Auto) 0.1 TH/MM3 Basophils # (Auto) 0.0 TH/MM3 CBC Comment DIFF FINAL Differential Comment Prothrombin Time 10.1 SEC Prothromb Time International Ratio 1.0 RATIO Activated Partial Thromboplast Time 24.7 SEC Blood Urea Nitrogen 14 MG/DL Creatinine 0.70 MG/DL Random Glucose 96 MG/DL Total Protein 6.3 GM/DL Albumin 3.4 GM/DL Calcium Level 8.7 MG/DL Alkaline Phosphatase 142 U/L Aspartate Amino Transf (AST/SGOT) 24 U/L Alanine Aminotransferase (ALT/SGPT) 34 U/L Total Bilirubin 0.2 MG/DL Sodium Level 139 MEQ/L Potassium Level 3.6 MEQ/L Chloride Level 104 MEQ/L Carbon Dioxide Level 27.7 MEQ/L Anion Gap 7 MEQ/L Estimat Glomerular Filtration Rate 86 ML/MIN MDM Medical Decision Making Medical Screen Exam Complete: Yes Emergency Medical Condition: Yes Medical Record Reviewed: Yes Differential Diagnosis Differential diagnosis includes CVA, intracranial hemorrhage, MS, hyponatremia, hypocalcemia, malingering, drug-seeking behavior. Narrative Course IV was established, labs are drawn and sent, and the patient was placed on cardiac telemetry monitoring and continuous pulse oximetry monitoring. CT the brain and cervical spine were ordered. I reviewed the patient's EMR, she had MRIs in April 2017 of the brain and entire spine, MRI of the lumbar spine and thoracic spine were unremarkable. MRI of the brain reveals some nonspecific white matter changes. MRI of the cervical spine reveals some flattening of the cord at C5-C6, I reviewed Dr. Beaulieu's neurosurgical note, he did not believe her symptoms at that time were associated with the spinal cord findings on MRI., I do not believe this is related to a syringomyelia. The patient's physical examination changes upon repeated attempts, unsure if this is malingering versus atypical presentation of underlying neurologic disorder. The patient was administered Benadryl for her pain, however, she is allergic to essentially everything including Toradol, Reglan, morphine, Zofran, Phenergan, and Compazine. The patient requested Imitrex for her headache, she was administered Imitrex 6 mg subcutaneous and Decadron 8 mg IV. Diagnosis Primary Impression: Cephalgia Qualified Codes: R51 - Headache Additional Impressions: Chronic pain Qualified Codes: G89.29 - Other chronic pain Debility Patient Instructions: General Instructions Additional Instructions: Please provide the patient a copy of her labs and CT results at discharge. Follow-up with her primary physician and pain interventionalist. Med/Other Pt SpecificInfo: Prescription(s) given Scripts Methylprednisolone Dosepak (Medrol Dosepak) 4 Mg Dspk 4 MG PO DIRECTED, #1 DSPK 0 Refills Per Pharmacist direction Prov: John Paige MD 07/17/17 Disposition: DISCHARGE HOME Condition: Stable John Paige MD Jul 17, 2017 17:12
--- NOTE | 2017-07-17 17:33 | RADRPT ---
EXAM DATE/TIME: 07/17/2017 17:22 [facility] COMPARISON: CT BRAIN W/O CONTRAST, May 05, 2017, 10:52. INDICATIONS : Head pain due to headaches and slurred speech. RADIATION DOSE: 31.16 CTDIvol (mGy) MEDICAL HISTORY : Seizures. Kidney cancer, CVA, HTN SURGICAL HISTORY : Appendectomy. Cholecystectomy.Hysterectomy. ENCOUNTER: Initial ACUITY: 1 day PAIN SCALE: Non-responsive LOCATION: Bilateral cranial TECHNIQUE: Multiple contiguous axial images were obtained of the head. Using automated exposure control and adj ustment of the mA and/or kV according to patient size, radiation dose was kept as low as reasonably a chievable to obtain optimal diagnostic quality images. DICOM format image data is available electro nically for review and comparison. FINDINGS: CEREBRUM: The ventricles are normal for age. No evidence of midline shift, mass lesion, hemorrhage or acute in farction. No extra-axial fluid collections are seen. POSTERIOR FOSSA: The cerebellum and brainstem are intact. The 4th ventricle is midline. The cerebellopontine angle i s unremarkable. EXTRACRANIAL: The visualized portion of the orbits is intact. SKULL: The calvaria is intact. No evidence of skull fracture. CONCLUSION: Normal examination. No significant change has occurred. Semaj Chen MD on July 17, 2017 at 17:30 Board Certified Radiologist. This report was verified electronically.
[2017-07-17 17:44] LABS: AUTOMATED NEUTROPHIL # 2.1 TH/MM3 (1.8-7.7); BASOPHIL % 0.2 % (0.0-2.0); EOSINOPHIL # 0.1 TH/MM3 (0-0.4); EOSINOPHIL % 1.8 % (0.0-4.0); HEMATOCRIT 36.4 % (35.0-46.0); HEMOGLOBIN 12.4 GM/DL (11.6-15.3); LYMPHOCYTE # 1.5 TH/MM3 (1.0-4.8); MEAN CELL VOLUME 95.1 FL (80.0-100.0); MEAN CORPUSCULAR HEMOGLOBIN 32.3 PG (27.0-34.0); MEAN PLATELET VOLUME 8.6 FL (7.0-11.0); MONOCYTE # 0.3 TH/MM3 (0-0.9); PLATELET COUNT 167 TH/MM3 (150-450); RED BLOOD COUNT 3.82 MIL/MM3 (4.00-5.30); RED CELL DISTRIBUTION WIDTH 20.2 % (11.6-17.2); WHITE BLOOD COUNT 3.9 TH/MM3 (4.0-11.0)
[2017-07-17 17:50] LABS: PROTHROMBIN TIME - PATIENT 10.1 SEC (9.8-11.6)
[2017-07-17 17:56] LABS: ALBUMIN 3.4 GM/DL (3.4-5.0); AST (GOT) 24 U/L (15-37); BICARBONATE 27.7 MEQ/L (21.0-32.0); BLOOD UREA NITROGEN 14 MG/DL (7-18); CALCIUM 8.7 MG/DL (8.5-10.1); CHLORIDE 104 MEQ/L (98-107); GLOMERULAR FILTRATION RATE 86 ML/MIN (>89); GLUCOSE,RANDOM 96 MG/DL (74-106); SODIUM (NA) 139 MEQ/L (136-145)
[2017-07-17 17:58] LABS: ALT (GPT) 34 U/L (10-53)
--- NOTE | 2017-07-17 17:58 | RADRPT ---
EXAM DATE/TIME: 07/17/2017 17:22 [facility] COMPARISON: No previous studies available for comparison. INDICATIONS : Neck pain with numbness and confusion. RADIATION DOSE: 10.25 CTDIvol (mGy) MEDICAL HISTORY : Cerebrovascular disease. Hypertension. Seizures. SURGICAL HISTORY : Appendectomy. Cholecystectomy. ENCOUNTER: Initial ACUITY: 1 day PAIN SCALE: Non-responsive LOCATION: Bilateral neck region. TECHNIQUE: Volumetric scanning of the cervical spine was performed. Multiplanar reconstructions in the sagittal, coronal and oblique axial planes were performed. Using automated exposure control and adjustment o f the mA and/or kV according to patient size, radiation dose was kept as low as reasonably achievable to obtain optimal diagnostic quality images. DICOM format image data is available electronically f or review and comparison. FINDINGS: There is moderate curvature of the cervical spine convex towards the left. There is 2 mm retrolisthe sis of C5 with respect to C6 and associated posterior endplate sclerosis with posterior osteophytes. Moderate narrowing of the C6-7 interspace with vacuum phenomenon but no significant osteophytes. Th ere is fusion of the facet joint on the right side at C5-6. The facets are in normal alignment witho ut evidence of locked or perched facets. Spinous processes are intact. The atlantoaxial articulatio n is intact. C2-C3: No fracture seen. The neural foramina are patent. C3-C4: No fracture seen. The neural foramina are patent. C4-C5: No fracture seen. Mild bilateral neural foraminal stenosis. C5-C6: No fracture seen. Moderate bilateral neural foraminal stenosis. C6-C7: No fracture seen. The neural foramina are patent. C7-T1: No fracture seen. The neural foramina are patent. CONCLUSION: 1. Mild retrolisthesis of the C5-6 level probably related to discogenic degenerative changes. 2. No fractures seen. Bao Balbuena MD on July 17, 2017 at 17:48 Board Certified Radiologist. This report was verified electronically.
[2017-07-17 18:00] LABS: ALKALINE PHOSPHATASE 142 U/L (45-117); TOTAL BILIRUBIN ADULT 0.2 MG/DL (0.2-1.0); TOTAL PROTEIN 6.3 GM/DL (6.4-8.2)
[2017-07-17] MEDS ORDERED: SUMAtriptan INJ 6 MG/0.5 ML VIAL SQ ONE (18:15)
[2017-07-17] MEDS ORDERED: DEXAMETHASONE SOD PHOS 4 MG/ML VIAL IV PUSH ONE (18:15)
[2017-07-17] MEDS ORDERED: MEDR4PAK PO (18:32)
== END 2017-07-17 19:22 | disposition home or self-care (01) ==
LOC: NEPE 16:19
DX: R51 Headache (principal); G89.29 Other chronic pain; R53.81 Other malaise; R20.0 Anesthesia of skin; F41.8 Other specified anxiety disorders; I25.2 Old myocardial infarction; I10 Essential (primary) hypertension; R53.1 Weakness; H53.8 Other visual disturbances; R56.9 Unspecified convulsions; Z88.5 Allergy status to narcotic agent; Z88.2 Allergy status to sulfonamides; Z88.0 Allergy status to penicillin
CPT/HCPCS: 70450; 72125; 80053; 85025; 85610; 85730; 96372; 96374; 96375; 99284; J1100; J1200; J3030; J7030

== ENCOUNTER 2017-07-31 08:22 | Emergency (ER) | payer BC ==
[~2017-07-31] VITALS: Ht 157.5 cm; Wt 43.5 kg
[~2017-07-31 08:22] MED LIST changes: -BUSP1TAB PO; -CALCTAB8 PO; -CYMB30CA PO; -DIAZ10 PO; -DICY20TA10 PO; -DULC100C PO; -MAGN400T2 PO; +MEDR4PAK PO; -SUMA50TA2 PO; -VITA1000 PO; -ZOLO50TA PO
[2017-07-31 08:24] VITALS: BP 147/92; PULSE 96; RESP 14; TEMP 99; O2SAT 100
[2017-07-31] MEDS ORDERED: diphenhydrAMINE HCL 50 MG/ML VIAL IV PUSH ONE (09:00)
[2017-07-31] MEDS ORDERED: SODIUM CHLOR 0.9% 1000 ML INJ 1,000 ML IV ONE (09:00)
[2017-07-31] MEDS ORDERED: SUMAtriptan SUCCINATE 50 MG TAB PO ONE (09:00)
[2017-07-31] MEDS ORDERED: LORazepam 0.5 MG TAB PO ONE (10:15)
--- NOTE | 2017-07-31 10:18 | PD ---
HPI Chief Complaint: Headache Time Seen by Provider: 08:42 Travel History International Travel<30 days: No Contact w/Intl Traveler<30days: No Traveled to known affect area: No History of Present Illness HPI Patient is a 57-year-old female who comes in complaining of a migraine headache. She says this is been going on for 3 days, but she is out of her Imitrex. She tried calling her doctor, says but she cannot get it for 72 hours. She says this headache feels the same as all of her migraines. She denies any new symptoms. Denies fever chills. She denies any head injury. She has multiple allergies, she says that usually the Imitrex and Benadryl help her. Severity is mild to moderate. PFSH Past Medical History Hx Anticoagulant Therapy: No Asthma: No Blood Disorders: No Anxiety: Yes Depression: Yes Heart Rhythm Problems: No Cancer: Yes (KIDNEY ) Cardiovascular Problems: Yes ([place] 2004) High Cholesterol: No Chemotherapy: No Chest Pain: No Congestive Heart Failure: No COPD: No Cerebrovascular Accident: Yes (2004) Diabetes: No Diminished Hearing: No Endocrine: No Gastrointestinal Disorders: Yes (GASTRECTOMY, CHRONIC ABDOMINAL PAIN ) GERD: No Genitourinary: Yes (OCCASSIONAL UTI) Headaches: Yes Hiatal Hernia: Yes Hypertension: Yes Immune Disorder: No Implanted Vascular Access Dvce: No Kidney Stones: No Musculoskeletal: No Neurologic: Yes (CVA 2004) Psychiatric: No Reproductive: No Respiratory: No Immunizations Current: Yes Migraines: Yes Myocardial Infarction: Yes (2004) Pneumonia: Yes Radiation Therapy: No Renal Failure: No Seizures: Yes Sleep Apnea: No Thyroid Disease: No Ulcer: No Tetanus Vaccination: < 5 Years Influenza Vaccination: Yes ?: Unknown Menopausal: Yes : 1 Para: 1 Miscarriage: 0 : 0 Ectopic : No Ovarian Cysts: No Dilation and Curettage (D&C): Yes Tubal Ligation: Yes Past Surgical History Abdominal Surgery: Yes (total gastrectomy w/pouch 2002, hernia repair) Appendectomy: Yes Cardiac Surgery: Yes (REPAIRED HOLE IN HEART) Cholecystectomy: Yes Genitourinary Surgery: Yes (RIGHT NEPHRECTOMY) Gynecologic Surgery: Yes Hysterectomy: No Thoracic Surgery: No Tonsillectomy: Yes Other Surgery: Yes (GASTRECTOMY, RIGHT KIDNEY REMOVAL, HERNIA REPAIR, GALLBLADDER, TONSILS) Social History Alcohol Use: No (PT DENIES) Tobacco Use: No (PT DENIES) Substance Use: No (PT DENIES) Allergies-Medications (Allergen,Severity, Reaction): Coded Allergies: MRI PRECAUTION (Verified Allergy, Severe, MRI contrast allergy, 06/13/17) anaphylaxis Sulfa (Sulfonamide Antibiotics) (Verified Allergy, Severe, Rash, 06/13/17) gadobenic acid (Verified Allergy, Severe, Anaphylaxis, 06/13/17) gadodiamide (Verified Allergy, Severe, Anaphylaxis, 06/13/17) gadoteridol (Verified Allergy, Severe, Anaphylaxis, 06/13/17) ketorolac (Verified Allergy, Severe, Shortness of Breath, 06/13/17) metoclopramide (Verified Allergy, Severe, Shortness of Breath, 06/13/17) morphine (Verified Allergy, Severe, Hives, 06/13/17) ondansetron (Verified Allergy, Severe, Shortness of Breath, 06/13/17) penicillin G (Verified Allergy, Severe, Rash, 06/13/17) prochlorperazine (Verified Allergy, Severe, Shortness of Breath, 06/13/17) promethazine (Verified Allergy, Severe, Shortness of Breath, 06/13/17) shellfish derived (Verified Allergy, Severe, Anaphylaxis, 06/13/17) trimethobenzamide (Verified Allergy, Severe, Shortness of Breath, 06/13/17) Reported Meds & Prescriptions Reported Meds & Active Scripts Active Imitrex (Sumatriptan Succinate) 50 Mg Tab 50 Mg PO ONCE PRN If a satisfactory response has not been obtained at 2 hours, a second dose may be administered Ambien (Zolpidem Tartrate) 5 Mg Tab 5 Mg PO HS PRN Fioricet (Iybvazvlhx-Gdbaxkiamqvrt-Iaogwwji) 50-300-40 Mg Cap 20 Mg PO Q6H PRN Reported Amitriptyline (Amitriptyline HCl) 50 Mg Tab 50 Mg PO HS Oxycontin (Oxycodone HCl) 10 Mg Tab 10 Mg PO Q8HR Vitamin E (Vitamin E Mixed) 400 Unit Tablet 400 Units PO DAILY Review of Systems Except as stated in HPI: all other systems reviewed are Neg General / Constitutional: No: Fever, Chills HENT: Positive: Headaches Cardiovascular: No: Chest Pain or Discomfort Respiratory: No: Shortness of Breath Gastrointestinal: Positive: Nausea, No: Vomiting Musculoskeletal: No: Myalgias Skin: No Rash, No Change in Pigmentation Physical Exam Narrative GENERAL: Awake and alert, in no acute distress. SKIN: Focused skin assessment warm/dry. No wounds or signs of infection. HEAD: Atraumatic. Normocephalic. EYES: Pupils equal and round and reactive. No scleral icterus. Extraocular movements intact. ENT: Mucous membranes pink and moist. NECK: Trachea midline. No JVD. CARDIOVASCULAR: Regular rate and rhythm. No murmur appreciated. RESPIRATORY: No accessory muscle use. Clear to auscultation. Breath sounds equal bilaterally. GASTROINTESTINAL: Abdomen soft, non-tender, nondistended. MUSCULOSKELETAL: No obvious deformities. No clubbing. No cyanosis. No edema. NEUROLOGICAL: Awake and alert. No obvious cranial nerve deficits. Motor grossly within normal limits. Normal speech. PSYCHIATRIC: Appropriate mood and affect; insight and judgment normal. Data Data Last Documented VS Vital Signs Date Time Temp Pulse Resp B/P (MAP) Pulse Ox O2 Delivery O2 Flow Rate FiO2 07/31/17 10:22 97.8 83 15 143/90 (107) 99 Room Air Orders Orders Sodium Chlor 0.9% 1000 Ml Inj (Ns 1000 M (07/31/17 09:00) Diphenhydramine Inj (Benadryl Inj) (07/31/17 09:00) Sumatriptan Succinate (Imitrex) (07/31/17 09:00) Lorazepam (Ativan) (07/31/17 10:15) MDM Medical Decision Making Medical Screen Exam Complete: Yes Emergency Medical Condition: Yes Medical Record Reviewed: Yes Differential Diagnosis Migraine vs tension headache vs dehydration Narrative Course Patient is a 57-year-old female comes in complaining of a migraine take. She says she is out of her Imitrex. Exam shows no neurologic abnormalities. Patient has multiple allergies. She is given a dose of Imitrex as well as IV fluids and Benadryl. She reports feeling better. She says she still feels a little nauseous and that Ativan is what works for her. She is given a small dose of Ativan given a prescription for Imitrex until she is able to get them from her doctor. Advised to follow-up with her doctors. Advised to drink plenty fluids. Advised return to the ED as needed for any worsening symptoms. Diagnosis Primary Impression: Migraine Qualified Codes: G43.009 - Migraine without aura, not intractable, without status migrainosus Patient Instructions: Acute Headache (ED), General Instructions Additional Instructions: Follow-up with your doctor. Take medication as needed for your headache. Return to the ED as needed for any worsening symptoms. Scripts Sumatriptan (Imitrex) 100 Mg Tab 100 MG PO ONCE Y for MIGRAINE HEADACHE, #10 TAB 0 Refills If a satisfactory response has not been obtained at 2 hours, a second dose may be administered Prov: Meera Taylor MD 07/31/17 Disposition: DISCHARGE HOME Condition: Stable Meera Taylor MD Jul 31, 2017 10:18
[2017-07-31 10:22] VITALS: BP 143/90; PULSE 83; RESP 15; TEMP 97.8; O2SAT 99
[2017-07-31] MEDS ORDERED: IMIT100T PO (10:25)
[2017-07-31 10:41] VITALS: BP 134/81; TEMP 97.7
== END 2017-07-31 10:41 | disposition home or self-care (01) ==
LOC: NEPC 08:22
DX: G43.009 Migraine without aura, not intractable, without status migrainosus (principal)
CPT/HCPCS: 96361; 96374; 99284; J1200; J7030

== ENCOUNTER 2017-08-04 19:13 | Emergency (ER) | payer BC ==
[~2017-08-04] VITALS: Ht 157.5 cm; Wt 45.0 kg
[~2017-08-04 19:13] MED LIST changes: -CYCL10TA PO; +IMIT100T PO; -MEDR4PAK PO; -TRAM50 PO
[2017-08-04 19:30] VITALS: BP 141/89; PULSE 107; RESP 16; TEMP 99.3; O2SAT 99
--- NOTE | 2017-08-04 19:59 | PD ---
HPI Chief Complaint: Headache Time Seen by Provider: 19:50 Travel History International Travel<30 days: No Contact w/Intl Traveler<30days: No Traveled to known affect area: No History of Present Illness HPI pt has severe headache paracervical and point tenderness. Occiput area .. pt has many chronic illness including partial gastrectomy from constant reflux & aspiration, Migraine and has repeat visits to ER in last 2 months for the same . Pt has home fioricet Imitrex with out relief , pt and she has multiple allergies when I say will will start with " Toradol IV benadryl and reglan," she says Im allergic to those .. I review her med list and po percocet and fioricet to start PFSH Past Medical History Hx Anticoagulant Therapy: No Asthma: No Blood Disorders: No Anxiety: Yes Depression: Yes Heart Rhythm Problems: No Cancer: Yes (KIDNEY ) Cardiovascular Problems: Yes ([place] 2004) High Cholesterol: No Chemotherapy: No Chest Pain: No Congestive Heart Failure: No COPD: No Cerebrovascular Accident: Yes (2004) Diabetes: No Diminished Hearing: No Endocrine: No Gastrointestinal Disorders: Yes (GASTRECTOMY, CHRONIC ABDOMINAL PAIN ) GERD: No Genitourinary: Yes (OCCASSIONAL UTI) Headaches: Yes Hiatal Hernia: Yes Hypertension: Yes Immune Disorder: No Implanted Vascular Access Dvce: No Kidney Stones: No Musculoskeletal: No Neurologic: Yes (CVA 2004) Psychiatric: No Reproductive: No Respiratory: No Immunizations Current: Yes Migraines: Yes Myocardial Infarction: Yes (2004) Pneumonia: Yes Radiation Therapy: No Renal Failure: No Seizures: Yes Sleep Apnea: No Thyroid Disease: No Ulcer: No Tetanus Vaccination: < 5 Years Influenza Vaccination: Yes ?: Not LMP: menapause Menopausal: Yes : 1 Para: 1 Miscarriage: 0 : 0 Ectopic : No Ovarian Cysts: No Dilation and Curettage (D&C): Yes Tubal Ligation: Yes Past Surgical History Abdominal Surgery: Yes (total gastrectomy w/pouch 2002, hernia repair) Appendectomy: Yes Cardiac Surgery: Yes (REPAIRED HOLE IN HEART) Cholecystectomy: Yes Genitourinary Surgery: Yes (RIGHT NEPHRECTOMY) Gynecologic Surgery: Yes Hysterectomy: No Thoracic Surgery: No Tonsillectomy: Yes Other Surgery: Yes (GASTRECTOMY, RIGHT KIDNEY REMOVAL, HERNIA REPAIR, GALLBLADDER, TONSILS) Social History Alcohol Use: No (PT DENIES) Tobacco Use: No (PT DENIES) Substance Use: No (PT DENIES) Allergies-Medications (Allergen,Severity, Reaction): Coded Allergies: MRI PRECAUTION (Verified Allergy, Severe, MRI contrast allergy, 08/04/17) anaphylaxis Sulfa (Sulfonamide Antibiotics) (Verified Allergy, Severe, Rash, 08/04/17) gadobenic acid (Verified Allergy, Severe, Anaphylaxis, 08/04/17) gadodiamide (Verified Allergy, Severe, Anaphylaxis, 08/04/17) gadoteridol (Verified Allergy, Severe, Anaphylaxis, 08/04/17) ketorolac (Verified Allergy, Severe, Shortness of Breath, 08/04/17) metoclopramide (Verified Allergy, Severe, Shortness of Breath, 08/04/17) morphine (Verified Allergy, Severe, Hives, 08/04/17) ondansetron (Verified Allergy, Severe, Shortness of Breath, 08/04/17) penicillin G (Verified Allergy, Severe, Rash, 08/04/17) prochlorperazine (Verified Allergy, Severe, Shortness of Breath, 08/04/17) promethazine (Verified Allergy, Severe, Shortness of Breath, 08/04/17) shellfish derived (Verified Allergy, Severe, Anaphylaxis, 08/04/17) trimethobenzamide (Verified Allergy, Severe, Shortness of Breath, 08/04/17) Reported Meds & Prescriptions Reported Meds & Active Scripts Active Imitrex (Sumatriptan Succinate) 100 Mg Tab 100 Mg PO ONCE PRN If a satisfactory response has not been obtained at 2 hours, a second dose may be administered Imitrex (Sumatriptan Succinate) 50 Mg Tab 50 Mg PO ONCE PRN If a satisfactory response has not been obtained at 2 hours, a second dose may be administered Ambien (Zolpidem Tartrate) 5 Mg Tab 5 Mg PO HS PRN Fioricet (Fehshklttt-Rctdgcgmtrxtx-Qeofagxl) 50-300-40 Mg Cap 20 Mg PO Q6H PRN Reported Amitriptyline (Amitriptyline HCl) 50 Mg Tab 50 Mg PO HS Oxycontin (Oxycodone HCl) 10 Mg Tab 10 Mg PO Q8HR Vitamin E (Vitamin E Mixed) 400 Unit Tablet 400 Units PO DAILY Physical Exam Narrative GENERAL: THIN CACHETIC KNEES HELD BENT IN BED SKIN: Warm and dry. HEAD: Atraumatic. Normocephalic. EYES: Pupils equal and round. No scleral icterus. No injection or drainage. ENT: No nasal bleeding or discharge. Mucous membranes pink and moist. NECK: Trachea midline. No JVD. OCCIPUT AREA TENDERNESS WITH PALPATION RIGHT> LEFT CARDIOVASCULAR: Regular rate and rhythm. RESPIRATORY: No accessory muscle use. Clear to auscultation. Breath sounds equal bilaterally. GASTROINTESTINAL: Abdomen soft, non-tender, nondistended. Hepatic and splenic margins not palpable. MUSCULOSKELETAL: Extremities without clubbing, cyanosis, or edema. No obvious deformities. NEUROLOGICAL: Awake and alert. No obvious cranial nerve deficits. Motor grossly within normal limits. Five out of 5 muscle strength in the arms and legs. Normal speech. PSYCHIATRIC: Appropriate mood and affect; insight and judgment normal. Data Data Last Documented VS Vital Signs Date Time Temp Pulse Resp B/P (MAP) Pulse Ox O2 Delivery O2 Flow Rate FiO2 08/04/17 19:30 99.3 107 16 141/89 (106) 99 Orders Orders Jetx-Hrnmh-Aouz 325-50-40 Mg (Fioricet 3 (08/04/17 20:00) Oxycodone-Acetamin 5-325 Mg (Percocet (08/04/17 20:00) Electrocardiogram (08/04/17 19:39) Sumatriptan Succinate (Imitrex) (08/04/17 21:00) Hydromorphone Pf Inj (Dilaudid Pf Inj) (08/04/17 21:00) Ed Discharge Order (08/04/17 23:00) [facility] Medical Decision Making Medical Screen Exam Complete: Yes Emergency Medical Condition: Yes Interpretation(s) Left bundle branch block at a rate of 93 patient has history of left bundle- branch block Differential Diagnosis Migraine non retractable vs intracranial pathology , pt has frequqent similiar so a feel CT not indicated , Narrative Course Patient is given fIRICET AND 2 PERCOCET WITOUT RELIEF , THEN IM DILAUDID 2 MG AND IMITREX PO AND FEELS BETTER WANTS TO GO HOME Diagnosis Primary Impression: Head ache Patient Instructions: Acute Headache (ED), General Instructions Disposition: DISCHARGE HOME Jordan Singh MD Aug 04, 2017 19:59
[2017-08-04] MEDS ORDERED: oxyCODONE/ACETAMINOPHEN 5 MG/325 MG TAB PO ONE (20:00)
[2017-08-04] MEDS ORDERED: ACETAMIN 325 MG/BUTALBITAL 50 MG/CAFFEINE 40 MG TAB PO ONE (20:00)
[2017-08-04] MEDS ORDERED: HYDROmorphone HCL PF 2 MG/ML VIAL IM ONE (21:00)
[2017-08-04] MEDS ORDERED: SUMAtriptan SUCCINATE 25 MG TAB PO ONE (21:00)
--- NOTE | 2017-08-05 11:37 | EKG ---
Date Performed: 08/04/2017 Time Performed: 19:39:58 PTAGE: 57 years EKG: Sinus rhythm POSSIBLE RIGHT ATRIAL ENLARGEMENT LEFT ATRIAL ENLARGEMENT LEFT BUNDLE BRANCH BLOCK ABNORMAL ECG Sinc e the prior tracing, there has been no significant change PREVIOUS TRACING : 05/05/2017 12.32 DOCTOR: Zayra Jeffries Interpretating Date/Time 08/05/2017 11:34:59
== END 2017-08-04 23:25 | disposition home or self-care (01) ==
LOC: NEPE 19:13
DX: R51 Headache (principal); R94.31 Abnormal electrocardiogram [ECG] [EKG]; F32.9 Major depressive disorder, single episode, unspecified; Z85.528 Personal history of other malignant neoplasm of kidney; I25.2 Old myocardial infarction; Z86.73 Personal history of transient ischemic attack (TIA), and cerebral infarction without residual deficits; I10 Essential (primary) hypertension; Z88.2 Allergy status to sulfonamides; Z88.5 Allergy status to narcotic agent; Z88.0 Allergy status to penicillin; Z91.013 Allergy to seafood
CPT/HCPCS: 93005; 96372; 99283; J1170

== ENCOUNTER 2017-08-05 15:20 | Emergency (ER) | payer BC ==
[~2017-08-05] VITALS: Ht 157.5 cm; Wt 43.0 kg
[2017-08-05 15:33] VITALS: BP 131/97; PULSE 102; RESP 18; TEMP 98.3; O2SAT 99
[2017-08-05] MEDS ORDERED: ACETAMIN 325 MG/BUTALBITAL 50 MG/CAFFEINE 40 MG TAB PO ONE (17:45)
[2017-08-05] MEDS ORDERED: SUMAtriptan SUCCINATE 25 MG TAB PO ONE (17:45)
--- NOTE | 2017-08-05 17:46 | PD ---
HPI Chief Complaint: Headache Time Seen by Provider: 17:31 Travel History International Travel<30 days: No Contact w/Intl Traveler<30days: No Traveled to known affect area: No History of Present Illness HPI 57-year-old female complains of headache. Patient states that she has history of recurrent migraine. Patient has been to the emergency room recently multiple times for headache. Patient was seen in emergency room last night and given oxycodone and Dilaudid and Fioricet and discharged home. Patient state that she had persistent headache today. Patient has been to the emergency room multiple times in the past with recurrent abdominal pain. Patient denies any photophobia. Patient denies any nausea vomiting. Patient denies any focal weakness or numbness of the extremity. Patient denies any recent head injury. Patient had CT of the head and neck recently which was normal. PFSH Past Medical History Hx Anticoagulant Therapy: No Asthma: No Blood Disorders: No Anxiety: Yes Depression: Yes Heart Rhythm Problems: No Cancer: Yes (KIDNEY ) Cardiovascular Problems: Yes ([place] 2004) High Cholesterol: No Chemotherapy: No Chest Pain: No Congestive Heart Failure: No COPD: No Cerebrovascular Accident: Yes (2004) Diabetes: No Diminished Hearing: No Endocrine: No Gastrointestinal Disorders: Yes (GASTRECTOMY, CHRONIC ABDOMINAL PAIN ) GERD: No Genitourinary: Yes (OCCASSIONAL UTI) Headaches: Yes Hiatal Hernia: Yes Hypertension: Yes Immune Disorder: No Implanted Vascular Access Dvce: No Kidney Stones: No Musculoskeletal: No Neurologic: Yes (CVA 2004) Psychiatric: No Reproductive: No Respiratory: No Immunizations Current: Yes Migraines: Yes Myocardial Infarction: Yes (2004) Pneumonia: Yes Radiation Therapy: No Renal Failure: No Seizures: Yes Sleep Apnea: No Thyroid Disease: No Ulcer: No Menopausal: Yes : 1 Para: 1 Miscarriage: 0 : 0 Ectopic : No Ovarian Cysts: No Dilation and Curettage (D&C): Yes Tubal Ligation: Yes Past Surgical History Abdominal Surgery: Yes (total gastrectomy w/pouch 2002, hernia repair) Appendectomy: Yes Cardiac Surgery: Yes (REPAIRED HOLE IN HEART) Cholecystectomy: Yes Genitourinary Surgery: Yes (RIGHT NEPHRECTOMY) Gynecologic Surgery: Yes Hysterectomy: No Thoracic Surgery: No Tonsillectomy: Yes Other Surgery: Yes (GASTRECTOMY, RIGHT KIDNEY REMOVAL, HERNIA REPAIR, GALLBLADDER, TONSILS) Social History Alcohol Use: No (PT DENIES) Tobacco Use: No (PT DENIES) Substance Use: No (PT DENIES) Allergies-Medications (Allergen,Severity, Reaction): Coded Allergies: MRI PRECAUTION (Verified Allergy, Severe, MRI contrast allergy, 08/05/17) anaphylaxis Sulfa (Sulfonamide Antibiotics) (Verified Allergy, Severe, Rash, 08/05/17) gadobenic acid (Verified Allergy, Severe, Anaphylaxis, 08/05/17) gadodiamide (Verified Allergy, Severe, Anaphylaxis, 08/05/17) gadoteridol (Verified Allergy, Severe, Anaphylaxis, 08/05/17) ketorolac (Verified Allergy, Severe, Shortness of Breath, 08/05/17) metoclopramide (Verified Allergy, Severe, Shortness of Breath, 08/05/17) morphine (Verified Allergy, Severe, Hives, 08/05/17) ondansetron (Verified Allergy, Severe, Shortness of Breath, 08/05/17) penicillin G (Verified Allergy, Severe, Rash, 08/05/17) prochlorperazine (Verified Allergy, Severe, Shortness of Breath, 08/05/17) promethazine (Verified Allergy, Severe, Shortness of Breath, 08/05/17) shellfish derived (Verified Allergy, Severe, Anaphylaxis, 08/05/17) trimethobenzamide (Verified Allergy, Severe, Shortness of Breath, 08/05/17) Reported Meds & Prescriptions Reported Meds & Active Scripts Active Imitrex (Sumatriptan Succinate) 100 Mg Tab 100 Mg PO ONCE PRN If a satisfactory response has not been obtained at 2 hours, a second dose may be administered Imitrex (Sumatriptan Succinate) 50 Mg Tab 50 Mg PO ONCE PRN If a satisfactory response has not been obtained at 2 hours, a second dose may be administered Ambien (Zolpidem Tartrate) 5 Mg Tab 5 Mg PO HS PRN Fioricet (Mtvmwwfess-Tfkbaoodnqyav-Flytlyxc) 50-300-40 Mg Cap 20 Mg PO Q6H PRN Reported Amitriptyline (Amitriptyline HCl) 50 Mg Tab 50 Mg PO HS Oxycontin (Oxycodone HCl) 10 Mg Tab 10 Mg PO Q8HR Vitamin E (Vitamin E Mixed) 400 Unit Tablet 400 Units PO DAILY Review of Systems General / Constitutional: No: Fever Eyes: No: Visual changes HENT: Positive: Headaches Cardiovascular: No: Chest Pain or Discomfort Respiratory: No: Shortness of Breath Gastrointestinal: No: Abdominal Pain Genitourinary: No: Dysuria Musculoskeletal: No: Pain Skin: No Rash Neurologic: No: Weakness Psychiatric: No: Depression Endocrine: No: Polydipsia Hematologic/Lymphatic: No: Easy Bruising Physical Exam Narrative GENERAL: Well-nourished, well-developed patient. SKIN: Focused skin assessment warm/dry. HEAD: Normocephalic. EYES: No scleral icterus. No injection or drainage. Pupil 2 mm equal reactive. NECK: Supple, trachea midline. No JVD or lymphadenopathy. No meningismus. CARDIOVASCULAR: Regular rate and rhythm without murmurs, gallops, or rubs. RESPIRATORY: Breath sounds equal bilaterally. No accessory muscle use. GASTROINTESTINAL: Abdomen soft, non-tender, nondistended. MUSCULOSKELETAL: No cyanosis, or edema. BACK: Nontender without obvious deformity. No CVA tenderness. Neurologic exam: Patient is awake and alert oriented 3. No obvious focal neurological deficit. Data Data Last Documented VS Vital Signs Date Time Temp Pulse Resp B/P (MAP) Pulse Ox O2 Delivery O2 Flow Rate FiO2 08/05/17 15:37 18 100 Room Air 08/05/17 15:33 98.3 102 131/97 (108) Orders Orders Sumatriptan Succinate (Imitrex) (08/05/17 17:45) Dmvh-Vizaz-Liqs 325-50-40 Mg (Fioricet 3 (08/05/17 17:45) MDM Medical Decision Making Medical Screen Exam Complete: Yes Emergency Medical Condition: Yes Differential Diagnosis Differential diagnosis including migraine headache, tension headache, cluster headache, opioid dependence. Narrative Course 57-year-old female with recurrent headache. History of recurrent abdominal pain that opioid dependent. Patient states that she has history of migraine. Patient has no photophobia, nausea vomiting, neurologic exam normal today. Patient was given Dilaudid and oxycodone last night. Patient will be given Fioricet and Imitrex today. Patient will be discharged. Diagnosis Primary Impression: Cephalgia Qualified Codes: R51 - Headache Patient Instructions: General Instructions Additional Instructions: Advised patient continue with Fioricet and Imitrex as needed. Follow-up local physician. Med/Other Pt SpecificInfo: No Change to Meds Disposition: DISCHARGE HOME Condition: Stable Edmar Georges MD Aug 05, 2017 17:46
[2017-08-06] MEDS ORDERED: IMIT50TA PO (10:29)
== END 2017-08-05 18:16 | disposition home or self-care (01) ==
LOC: NEPD 15:20
DX: R51 Headache (principal)
CPT/HCPCS: 99283

== ENCOUNTER 2017-08-06 07:49 | Emergency (ER) | payer BC ==
[~2017-08-06] VITALS: Ht 157.5 cm; Wt 45.0 kg
[2017-08-06 07:51] VITALS: BP 148/82; PULSE 108; RESP 18; TEMP 98.3; O2SAT 100
--- NOTE | 2017-08-06 09:16 | PD ---
HPI Chief Complaint: Headache Time Seen by Provider: 09:06 Travel History International Travel<30 days: No Contact w/Intl Traveler<30days: No Traveled to known affect area: No History of Present Illness HPI c/o generalized shaw, ongoing , for several days. here requesting pain medication , particularly "dilaudid" is the only one that helps her. I advised that such a strong narcotic is reserved for very severe cases only and usually avoided due to narcotic rebound headache. patient states she has her follow up appointment with dr alexandre (her neurologist) multiple allergies pcp is dr york MEDICAL HISTORY : Seizures. Kidney cancer, CVA, HTN SURGICAL HISTORY : Appendectomy. Cholecystectomy.Hysterectomy. PFSH Past Medical History Hx Anticoagulant Therapy: No Asthma: No Blood Disorders: No Anxiety: Yes Depression: Yes Heart Rhythm Problems: No Cancer: Yes (KIDNEY ) Cardiovascular Problems: Yes ([place] 2004) High Cholesterol: No Chemotherapy: No Chest Pain: No Congestive Heart Failure: No COPD: No Cerebrovascular Accident: Yes (2004) Diabetes: No Diminished Hearing: No Endocrine: No Gastrointestinal Disorders: Yes (GASTRECTOMY, CHRONIC ABDOMINAL PAIN ) GERD: No Genitourinary: Yes (OCCASSIONAL UTI) Headaches: Yes Hiatal Hernia: Yes Hypertension: Yes Immune Disorder: No Implanted Vascular Access Dvce: No Kidney Stones: No Musculoskeletal: No Neurologic: Yes (CVA 2004) Psychiatric: No Reproductive: No Respiratory: No Immunizations Current: Yes Migraines: Yes Myocardial Infarction: Yes (2004) Pneumonia: Yes Radiation Therapy: No Renal Failure: No Seizures: Yes Sleep Apnea: No Thyroid Disease: No Ulcer: No Menopausal: Yes : 1 Para: 1 Miscarriage: 0 : 0 Ectopic : No Ovarian Cysts: No Dilation and Curettage (D&C): Yes Tubal Ligation: Yes Past Surgical History Abdominal Surgery: Yes (total gastrectomy w/pouch 2002, hernia repair) Appendectomy: Yes Cardiac Surgery: Yes (REPAIRED HOLE IN HEART) Cholecystectomy: Yes Genitourinary Surgery: Yes (RIGHT NEPHRECTOMY) Gynecologic Surgery: Yes Hysterectomy: No Thoracic Surgery: No Tonsillectomy: Yes Other Surgery: Yes (GASTRECTOMY, RIGHT KIDNEY REMOVAL, HERNIA REPAIR, GALLBLADDER, TONSILS) Social History Alcohol Use: No (PT DENIES) Tobacco Use: No (PT DENIES) Substance Use: No (PT DENIES) Allergies-Medications (Allergen,Severity, Reaction): Coded Allergies: MRI PRECAUTION (Verified Allergy, Severe, MRI contrast allergy, 08/06/17) anaphylaxis Sulfa (Sulfonamide Antibiotics) (Verified Allergy, Severe, Rash, 08/06/17) gadobenic acid (Verified Allergy, Severe, Anaphylaxis, 08/06/17) gadodiamide (Verified Allergy, Severe, Anaphylaxis, 08/06/17) gadoteridol (Verified Allergy, Severe, Anaphylaxis, 08/06/17) ketorolac (Verified Allergy, Severe, Shortness of Breath, 08/06/17) metoclopramide (Verified Allergy, Severe, Shortness of Breath, 08/06/17) morphine (Verified Allergy, Severe, Hives, 08/06/17) ondansetron (Verified Allergy, Severe, Shortness of Breath, 08/06/17) penicillin G (Verified Allergy, Severe, Rash, 08/06/17) prochlorperazine (Verified Allergy, Severe, Shortness of Breath, 08/06/17) promethazine (Verified Allergy, Severe, Shortness of Breath, 08/06/17) shellfish derived (Verified Allergy, Severe, Anaphylaxis, 08/06/17) trimethobenzamide (Verified Allergy, Severe, Shortness of Breath, 08/06/17) Reported Meds & Prescriptions Reported Meds & Active Scripts Active Imitrex (Sumatriptan Succinate) 100 Mg Tab 100 Mg PO ONCE PRN If a satisfactory response has not been obtained at 2 hours, a second dose may be administered Ambien (Zolpidem Tartrate) 5 Mg Tab 5 Mg PO HS PRN Fioricet (Uehkodwaga-Wpisxgqmayyzf-Ajkkydwa) 50-300-40 Mg Cap 20 Mg PO Q6H PRN Reported Oxycontin (Oxycodone HCl) 10 Mg Tab 10 Mg PO Q8HR Vitamin E (Vitamin E Mixed) 400 Unit Tablet 400 Units PO DAILY Review of Systems General / Constitutional: No: Fever Eyes: No: Visual changes HENT: Positive: Headaches Cardiovascular: No: Chest Pain or Discomfort Respiratory: No: Shortness of Breath Gastrointestinal: No: Abdominal Pain Genitourinary: No: Dysuria Musculoskeletal: No: Pain Skin: No Rash Neurologic: No: Weakness Psychiatric: No: Depression Endocrine: No: Polydipsia Hematologic/Lymphatic: No: Easy Bruising Physical Exam Narrative GENERAL: SKIN: Warm and dry. HEAD: Atraumatic. Normocephalic. EYES: Pupils equal and round. No scleral icterus. No injection or drainage. ENT: No nasal bleeding or discharge. Mucous membranes pink and moist. NECK: Trachea midline. No JVD. CARDIOVASCULAR: Regular rate and rhythm. RESPIRATORY: No accessory muscle use. Clear to auscultation. Breath sounds equal bilaterally. GASTROINTESTINAL: Abdomen soft, non-tender, nondistended. MUSCULOSKELETAL: Extremities without clubbing, cyanosis, or edema. No obvious deformities. NEUROLOGICAL: Awake and alert. No obvious cranial nerve deficits. Motor grossly within normal limits. Five out of 5 muscle strength in the arms and legs. Normal speech. PSYCHIATRIC: Appropriate mood and affect; insight and judgment normal. Data Data Last Documented VS Vital Signs Date Time Temp Pulse Resp B/P (MAP) Pulse Ox O2 Delivery O2 Flow Rate FiO2 08/06/17 07:51 98.3 108 18 148/82 (104) 100 Orders Orders Sumatriptan Inj (Imitrex Inj) (08/06/17 09:30) Orphenadrine Inj (Norflex Inj) (08/06/17 09:30) MDM Medical Decision Making Medical Screen Exam Complete: Yes Emergency Medical Condition: Yes Medical Record Reviewed: Yes Differential Diagnosis tension shaw v brain mass v aneurysm v migraine Narrative Course this patient on chart review used to come to ed for chronic abd pain and has been "developing" allergies to toradol, morphine, zofran, reglan, and many more medications. Now recently, she has been coming to dept for headche and has had appropriate work up such as ct head/neck on jul 17: both negative as read by radiologist...of note mild retrolesthesis c5/c6 is only major finding on neck....additionally had mri brain on apr, just 4 months ago with negative mass , aneurysm or stroke findings. will be given norflex and imitrex im and advise to keep appointment with her neurologist....no prescription for pain medication will be prescribed. Diagnosis Primary Impression: chronic headache vs malingering Patient Instructions: Chronic Pain (ED), General Instructions Disposition: 01 DISCHARGE HOME Condition: Stable Omid Gutierres MD Aug 06, 2017 09:16
[2017-08-06] MEDS ORDERED: ORPHENADRINE INJ 60 MG/2 ML AMP IM ONE (09:30)
[2017-08-06] MEDS ORDERED: SUMAtriptan INJ 6 MG/0.5 ML VIAL SQ ONE (09:30)
[2017-08-06] MEDS ORDERED: IMIT50TA PO (10:29)
== END 2017-08-06 10:35 | disposition home or self-care (01) ==
LOC: NEPD 07:49
DX: R51 Headache (principal); I10 Essential (primary) hypertension; I25.2 Old myocardial infarction
CPT/HCPCS: 96372; 99283; J2360; J3030

== ENCOUNTER 2017-08-16 12:21 | Emergency (ER) | payer BC ==
[~2017-08-16] VITALS: Ht 157.5 cm; Wt 43.6 kg
[~2017-08-16 12:21] MED LIST changes: -AMIT50TA3 PO
[2017-08-16 12:38] VITALS: BP 164/98; PULSE 94; RESP 18; TEMP 98.1; O2SAT 95
--- NOTE | 2017-08-16 15:14 | PD ---
HPI . Headache Chief Complaint: Headache Time Seen by Provider: 14:50 Travel History International Travel<30 days: No Contact w/Intl Traveler<30days: No Traveled to known affect area: No History of Present Illness HPI This patient presents complaining with neck pain, head pain and decreased hearing in her left ear. Onset was 2 days ago. Pain is rated 9/10. Pain has been unrelieved by Fioricet and Imitrex which she takes chronically. Nothing exacerbates her pain. The patient reports that she called her pain management doctor, Dr. Pulido, and was advised to present us for management. PFSH Past Medical History Hx Anticoagulant Therapy: No Asthma: No Blood Disorders: No Anxiety: Yes Depression: Yes Heart Rhythm Problems: No Cancer: Yes (KIDNEY ) Cardiovascular Problems: Yes (CT 2004) High Cholesterol: No Chemotherapy: No Chest Pain: No Congestive Heart Failure: No COPD: No Cerebrovascular Accident: Yes (2004) Diabetes: No Diminished Hearing: No Endocrine: No Gastrointestinal Disorders: Yes (GASTRECTOMY, CHRONIC ABDOMINAL PAIN ) GERD: No Genitourinary: Yes (OCCASSIONAL UTI) Headaches: Yes Hiatal Hernia: Yes Hypertension: Yes Immune Disorder: No Implanted Vascular Access Dvce: No Kidney Stones: No Musculoskeletal: No Neurologic: Yes (CVA 2004) Psychiatric: No Reproductive: No Respiratory: No Immunizations Current: Yes Migraines: Yes Myocardial Infarction: Yes (2004) Pneumonia: Yes Radiation Therapy: No Renal Failure: No Seizures: Yes Sleep Apnea: No Thyroid Disease: No Ulcer: No Menopausal: Yes : 1 Para: 1 Miscarriage: 0 : 0 Ectopic : No Ovarian Cysts: No Dilation and Curettage (D&C): Yes Tubal Ligation: Yes Past Surgical History Abdominal Surgery: Yes (total gastrectomy w/pouch 2002, hernia repair) Appendectomy: Yes Cardiac Surgery: Yes (REPAIRED HOLE IN HEART) Cholecystectomy: Yes Genitourinary Surgery: Yes (RIGHT NEPHRECTOMY) Gynecologic Surgery: Yes Hysterectomy: No Thoracic Surgery: No Tonsillectomy: Yes Other Surgery: Yes (GASTRECTOMY, RIGHT KIDNEY REMOVAL, HERNIA REPAIR, GALLBLADDER, TONSILS) Social History Alcohol Use: No ( ) Tobacco Use: No ( ) Substance Use: No ( ) Allergies-Medications (Allergen,Severity, Reaction): Coded Allergies: MRI PRECAUTION (Verified Allergy, Severe, MRI contrast allergy, 08/06/17) anaphylaxis Sulfa (Sulfonamide Antibiotics) (Verified Allergy, Severe, Rash, 08/06/17) gadobenic acid (Verified Allergy, Severe, Anaphylaxis, 08/06/17) gadodiamide (Verified Allergy, Severe, Anaphylaxis, 08/06/17) gadoteridol (Verified Allergy, Severe, Anaphylaxis, 08/06/17) ketorolac (Verified Allergy, Severe, Shortness of Breath, 08/06/17) metoclopramide (Verified Allergy, Severe, Shortness of Breath, 08/06/17) morphine (Verified Allergy, Severe, Hives, 08/06/17) ondansetron (Verified Allergy, Severe, Shortness of Breath, 08/06/17) penicillin G (Verified Allergy, Severe, Rash, 08/06/17) prochlorperazine (Verified Allergy, Severe, Shortness of Breath, 08/06/17) promethazine (Verified Allergy, Severe, Shortness of Breath, 08/06/17) shellfish derived (Verified Allergy, Severe, Anaphylaxis, 08/06/17) trimethobenzamide (Verified Allergy, Severe, Shortness of Breath, 08/06/17) Reported Meds & Prescriptions Reported Meds & Active Scripts Active Imitrex (Sumatriptan Succinate) 50 Mg Tab 50 Mg PO ONCE PRN If a satisfactory response has not been obtained at 2 hours, a second dose may be administered Imitrex (Sumatriptan Succinate) 100 Mg Tab 100 Mg PO ONCE PRN If a satisfactory response has not been obtained at 2 hours, a second dose may be administered Ambien (Zolpidem Tartrate) 5 Mg Tab 5 Mg PO HS PRN Fioricet (Qflzaybrkk-Kjibcgiumtdmb-Davnyzms) 50-300-40 Mg Cap 20 Mg PO Q6H PRN Reported Oxycontin (Oxycodone HCl) 10 Mg Tab 10 Mg PO Q8HR Vitamin E (Vitamin E Mixed) 400 Unit Tablet 400 Units PO DAILY Review of Systems Except as stated in HPI: all other systems reviewed are Neg General / Constitutional: No: Fever, Chills Eyes: No: Blurred Vision HENT: Positive: Headaches, Neck Pain, Other (Decreased hearing from the left ear) Neurologic: No: Paresthesia Physical Exam Narrative GENERAL: Awake and alert and in no acute distress. Very thin. SKIN: Warm and dry. HEAD: Normocephalic/atraumatic. EYES: Pupils are equal. Extraocular movements are intact. ENT: Both TMs are shiny and shrestha with good light reflexes. There is no cerumen in either EAC. NECK: Normal range of motion. Diffusely tender. MUSCULOSKELETAL: Atraumatic. NEUROLOGICAL: A and O 3. No obvious cranial nerve deficits. Moving all 4 extremities equally. Aiwxsz-ewco-ujjzks exam is intact. PSYCHIATRIC: Appropriate mood and affect. Data Data Last Documented VS Vital Signs Date Time Temp Pulse Resp B/P (MAP) Pulse Ox O2 Delivery O2 Flow Rate FiO2 08/16/17 14:51 16 Room Air 08/16/17 12:38 98.1 94 164/98 (120) 95 Orders Orders Sumatriptan Succinate (Imitrex) (08/16/17 15:15) [facility] Medical Decision Making Medical Screen Exam Complete: Yes Emergency Medical Condition: Yes Medical Record Reviewed: Yes (Patient is seen here frequently for similar complaints. She reports numerous drug allergies. Previous records indicate that she states that the only thing that helps her pain is Dilaudid. I have reviewed her past 7 ED visits she was given Dilaudid here only once.) Differential Diagnosis Differential diagnosis of headache includes but is not limited to migraine, muscle contraction headache, brain tumor, brain bleed Differential diagnosis of ear pain includes eustachian tube dysfunction, otitis externa, otitis media, TMJ syndrome Narrative Course This patient presents for the evaluation of neck pain, head pain and decreased hearing from the left ear. Her EACs are clear with no cerumen and both TMs are shiny and shrestha with good light reflexes. The patient reports that she was sent to us by her pain management doctor. I called Dr. Pulido's office to find out #1, did they sent her here? and #2, how with a like for us to assist in her management? I was told that the patient had called her office today requesting a walk-in appointment. They did not have any available appointments today. She told them that she had decreased hearing in her left ear. She was instructed to be seen either here or at urgent care for evaluation of her left ear. The patient has asked me for a dose of her routine Imitrex. I have provided that. Diagnosis Primary Impression: Decreased hearing of left ear Additional Impression: Chronic pain Qualified Codes: G89.4 - Chronic pain syndrome Patient Instructions: General Instructions, Hearing Loss (DC) Disposition: 01 DISCHARGE HOME Condition: Stable Fern Olsen MD Aug 16, 2017 15:14
[2017-08-16] MEDS ORDERED: SUMAtriptan SUCCINATE 50 MG TAB PO ONE (15:15)
== END 2017-08-16 15:55 | disposition home or self-care (01) ==
LOC: NEPD 12:21
DX: G89.4 Chronic pain syndrome (principal); H91.8X2 Other specified hearing loss, left ear; M54.2 Cervicalgia; R51 Headache; F41.9 Anxiety disorder, unspecified; I25.2 Old myocardial infarction; I10 Essential (primary) hypertension; R56.9 Unspecified convulsions; Z86.73 Personal history of transient ischemic attack (TIA), and cerebral infarction without residual deficits
CPT/HCPCS: 99283

== ENCOUNTER 2017-08-17 19:30 | Emergency (ER) | payer BC ==
[2017-08-17 20:06] VITALS: BP 159/102; PULSE 111; RESP 18; TEMP 98.8; O2SAT 97
[2017-08-17 23:19] VITALS: BP 167/103; PULSE 93; RESP 18; O2SAT 97
--- NOTE | 2017-08-17 23:31 | PD ---
HPI Chief Complaint: Headache Time Seen by Provider: 22:57 Travel History International Travel<30 days: No Contact w/Intl Traveler<30days: No Traveled to known affect area: No History of Present Illness HPI Patient returns for the sixth time this month with the same complaint of headache, and with the same exact discussion stating that she is unable to take her Imitrex pill because she is actively vomiting. The last time I saw her I gave her Zofran ODT which the patient states that she is not able to tolerate. Patient describes her headache the same way as she does in the past. There is nothing different, just that she is not getting relief at home. Upon chart review she has been worked up with an MRI of the brain April 2017 , as well as a recent CT scan of the head and neck July 2017. Patient states he only narcotic that she is able to take without any problem his Dilaudid. PFSH Past Medical History Hx Anticoagulant Therapy: No Asthma: No Blood Disorders: No Anxiety: Yes Depression: Yes Heart Rhythm Problems: No Cancer: Yes (KIDNEY ) Cardiovascular Problems: Yes (DC 2004) High Cholesterol: No Chemotherapy: No Chest Pain: No Congestive Heart Failure: No COPD: No Cerebrovascular Accident: Yes (2004) Diabetes: No Diminished Hearing: No Endocrine: No Gastrointestinal Disorders: Yes (GASTRECTOMY, CHRONIC ABDOMINAL PAIN ) GERD: No Genitourinary: Yes (OCCASSIONAL UTI) Headaches: Yes Hiatal Hernia: Yes Hypertension: Yes Immune Disorder: No Implanted Vascular Access Dvce: No Kidney Stones: No Musculoskeletal: No Neurologic: Yes (CVA 2004) Psychiatric: No Reproductive: No Respiratory: No Immunizations Current: Yes Migraines: Yes Myocardial Infarction: Yes (2004) Pneumonia: Yes Radiation Therapy: No Renal Failure: No Seizures: Yes Sleep Apnea: No Thyroid Disease: No Ulcer: No Tetanus Vaccination: Unknown Influenza Vaccination: Yes Menopausal: Yes : 1 Para: 1 Miscarriage: 0 : 0 Ectopic : No Ovarian Cysts: No Dilation and Curettage (D&C): Yes Tubal Ligation: Yes Past Surgical History Abdominal Surgery: Yes (total gastrectomy w/pouch 2002, hernia repair) Appendectomy: Yes Cardiac Surgery: Yes (REPAIRED HOLE IN HEART) Cholecystectomy: Yes Genitourinary Surgery: Yes (RIGHT NEPHRECTOMY) Gynecologic Surgery: Yes Hysterectomy: No Thoracic Surgery: No Tonsillectomy: Yes Other Surgery: Yes (GASTRECTOMY, RIGHT KIDNEY REMOVAL, HERNIA REPAIR, GALLBLADDER, TONSILS) Social History Alcohol Use: No ( ) Tobacco Use: No ( ) Substance Use: No ( ) Allergies-Medications (Allergen,Severity, Reaction): Coded Allergies: MRI PRECAUTION (Verified Allergy, Severe, MRI contrast allergy, 08/06/17) anaphylaxis Sulfa (Sulfonamide Antibiotics) (Verified Allergy, Severe, Rash, 08/06/17) gadobenic acid (Verified Allergy, Severe, Anaphylaxis, 08/06/17) gadodiamide (Verified Allergy, Severe, Anaphylaxis, 08/06/17) gadoteridol (Verified Allergy, Severe, Anaphylaxis, 08/06/17) ketorolac (Verified Allergy, Severe, Shortness of Breath, 08/06/17) metoclopramide (Verified Allergy, Severe, Shortness of Breath, 08/06/17) morphine (Verified Allergy, Severe, Hives, 08/06/17) ondansetron (Verified Allergy, Severe, Shortness of Breath, 08/06/17) penicillin G (Verified Allergy, Severe, Rash, 08/06/17) prochlorperazine (Verified Allergy, Severe, Shortness of Breath, 08/06/17) promethazine (Verified Allergy, Severe, Shortness of Breath, 08/06/17) shellfish derived (Verified Allergy, Severe, Anaphylaxis, 08/06/17) trimethobenzamide (Verified Allergy, Severe, Shortness of Breath, 08/06/17) Reported Meds & Prescriptions Reported Meds & Active Scripts Active Imitrex (Sumatriptan Succinate) 50 Mg Tab 50 Mg PO ONCE PRN If a satisfactory response has not been obtained at 2 hours, a second dose may be administered Imitrex (Sumatriptan Succinate) 100 Mg Tab 100 Mg PO ONCE PRN If a satisfactory response has not been obtained at 2 hours, a second dose may be administered Ambien (Zolpidem Tartrate) 5 Mg Tab 5 Mg PO HS PRN Fioricet (Xhwalnijnd-Vtnryhfxooqlw-Iytewyhq) 50-300-40 Mg Cap 20 Mg PO Q6H PRN Reported Oxycontin (Oxycodone HCl) 10 Mg Tab 10 Mg PO Q8HR Vitamin E (Vitamin E Mixed) 400 Unit Tablet 400 Units PO DAILY Review of Systems General / Constitutional: No: Fever Eyes: No: Visual changes HENT: Positive: Headaches Cardiovascular: No: Chest Pain or Discomfort Respiratory: No: Shortness of Breath Gastrointestinal: No: Abdominal Pain Genitourinary: No: Dysuria Musculoskeletal: No: Pain Skin: No Rash Neurologic: No: Weakness Psychiatric: No: Depression Endocrine: No: Polydipsia Hematologic/Lymphatic: No: Easy Bruising Physical Exam Narrative GENERAL: SKIN: Warm and dry. HEAD: Atraumatic. Normocephalic. EYES: Pupils equal and round. No scleral icterus. No injection or drainage. ENT: No nasal bleeding or discharge. Mucous membranes pink and moist. NECK: Trachea midline. No JVD. CARDIOVASCULAR: Regular rate and rhythm. RESPIRATORY: No accessory muscle use. Clear to auscultation. Breath sounds equal bilaterally. GASTROINTESTINAL: Abdomen soft, non-tender, nondistended. MUSCULOSKELETAL: Extremities without clubbing, cyanosis, or edema. No obvious deformities. NEUROLOGICAL: Awake and alert. No obvious cranial nerve deficits. Motor grossly within normal limits. Five out of 5 muscle strength in the arms and legs. Normal speech. PSYCHIATRIC: Appropriate mood and affect; insight and judgment normal. Data Data Last Documented VS Vital Signs Date Time Temp Pulse Resp B/P (MAP) Pulse Ox O2 Delivery O2 Flow Rate FiO2 08/17/17 23:19 93 18 167/103 (124) 97 Room Air 08/17/17 20:06 98.8 Orders Orders Trimethobenzamide Inj (Tigan Inj) (08/18/17 00:15) Sumatriptan Inj (Imitrex Inj) (08/18/17 00:45) [facility] Medical Decision Making Medical Screen Exam Complete: Yes Emergency Medical Condition: Yes Medical Record Reviewed: Yes Differential Diagnosis After focused extensive evaluation of her charts unfortunately my differential at this time is malingering versus acute on chronic exacerbation of headache Narrative Course Patient essentially list allergies to every antiemetic with the exception of droperidol and Marinol... However I am not inclined to give her either of those anyway. Patient also has multiple allergies to medications and the pain category including morphine, Toradol in particular. So patient will be treated with Imitrex which she can take, she has at home medication for. Diagnosis Primary Impression: Chronic cephalgia Patient Instructions: Chronic Pain (DC), General Instructions Additional Instructions: FOLLOW UP WITH YOUR NEUROLOGIST FOR FURTHER PAIN CONTROL. Disposition: 01 DISCHARGE HOME Condition: Stable [facility] Aug 17, 2017 23:31
[2017-08-18] MEDS ORDERED: TRIMETHOBENZAMIDE INJ 200 MG/2 ML VIAL IM ONE (00:15)
[2017-08-18] MEDS ORDERED: SUMAtriptan INJ 6 MG/0.5 ML VIAL SQ ONE (00:45)
== END 2017-08-18 00:58 | disposition home or self-care (01) ==
LOC: NEPE 19:30
DX: R51 Headache (principal); G89.29 Other chronic pain; R11.2 Nausea with vomiting, unspecified; I25.2 Old myocardial infarction
CPT/HCPCS: 96372; 99283; J3030

== ENCOUNTER 2017-08-29 06:19 | Emergency (ER) | payer BC ==
[2017-08-29 06:51] VITALS: BP 180/92; PULSE 111; RESP 16; TEMP 98.5; O2SAT 98
--- NOTE | 2017-08-29 07:51 | PD ---
HPI Chief Complaint: Headache Time Seen by Provider: 07:39 Travel History International Travel<30 days: No Contact w/Intl Traveler<30days: No Traveled to known affect area: No History of Present Illness HPI Patient is a 57-year-old female known to me from previous ER visits presents emergency department for evaluation of headache. This is her seventh presentation in the past 30 days for similar. Patient states she ran out of her Imitrex at home, she also states that she has a problem with discs in her neck and her neck feels very tight but she has an appointment to follow-up with a neurosurgeon in 2 weeks. Patient denies any thunderclap presentation, states is not the worst headache of her life, no nuchal rigidity. Patient has a history of chronic abdominal pain as well, she has presented to the emergency department multiple times for this as well. PFSH Past Medical History Hx Anticoagulant Therapy: No Asthma: No Blood Disorders: No Anxiety: Yes Depression: Yes Heart Rhythm Problems: No Cancer: Yes (KIDNEY ) Cardiovascular Problems: Yes (SD 2004) High Cholesterol: No Chemotherapy: No Chest Pain: No Congestive Heart Failure: No COPD: No Cerebrovascular Accident: Yes (2004) Diabetes: No Diminished Hearing: No Endocrine: No Gastrointestinal Disorders: Yes (GASTRECTOMY, CHRONIC ABDOMINAL PAIN ) GERD: No Genitourinary: Yes (OCCASSIONAL UTI) Headaches: Yes Hiatal Hernia: Yes Hypertension: Yes Immune Disorder: No Implanted Vascular Access Dvce: No Kidney Stones: No Musculoskeletal: No Neurologic: Yes (CVA 2004) Psychiatric: No Reproductive: No Respiratory: No Immunizations Current: Yes Migraines: Yes Myocardial Infarction: Yes (2004) Pneumonia: Yes Radiation Therapy: No Renal Failure: No Seizures: Yes Sleep Apnea: No Thyroid Disease: No Ulcer: No Menopausal: Yes : 1 Para: 1 Miscarriage: 0 : 0 Ectopic : No Ovarian Cysts: No Dilation and Curettage (D&C): Yes Tubal Ligation: Yes Past Surgical History Abdominal Surgery: Yes (total gastrectomy w/pouch 2002, hernia repair) Appendectomy: Yes Cardiac Surgery: Yes (REPAIRED HOLE IN HEART) Cholecystectomy: Yes Genitourinary Surgery: Yes (RIGHT NEPHRECTOMY) Gynecologic Surgery: Yes Hysterectomy: No Thoracic Surgery: No Tonsillectomy: Yes Other Surgery: Yes (GASTRECTOMY, RIGHT KIDNEY REMOVAL, HERNIA REPAIR, GALLBLADDER, TONSILS) Social History Alcohol Use: No ( ) Tobacco Use: No ( ) Substance Use: No ( ) Allergies-Medications (Allergen,Severity, Reaction): Coded Allergies: MRI PRECAUTION (Verified Allergy, Severe, MRI contrast allergy, 08/29/17) anaphylaxis Sulfa (Sulfonamide Antibiotics) (Verified Allergy, Severe, Rash, 08/29/17) gadobenic acid (Verified Allergy, Severe, Anaphylaxis, 08/29/17) gadodiamide (Verified Allergy, Severe, Anaphylaxis, 08/29/17) gadoteridol (Verified Allergy, Severe, Anaphylaxis, 08/29/17) ketorolac (Verified Allergy, Severe, Shortness of Breath, 08/29/17) metoclopramide (Verified Allergy, Severe, Shortness of Breath, 08/29/17) morphine (Verified Allergy, Severe, Hives, 08/29/17) ondansetron (Verified Allergy, Severe, Shortness of Breath, 08/29/17) penicillin G (Verified Allergy, Severe, Rash, 08/29/17) prochlorperazine (Verified Allergy, Severe, Shortness of Breath, 08/29/17) promethazine (Verified Allergy, Severe, Shortness of Breath, 08/29/17) shellfish derived (Verified Allergy, Severe, Anaphylaxis, 08/29/17) trimethobenzamide (Verified Allergy, Severe, Shortness of Breath, 08/29/17) Reported Meds & Prescriptions Reported Meds & Active Scripts Active Imitrex Nasal [place] (Sumatriptan Succinate) 5 Mg/Act [place] 1 [place] NASAL ONCE PRN [place] in one nostril. If headache has not resolved within 2 hours or returns, the dose may be repeated once after 2 hours Imitrex (Sumatriptan Succinate) 50 Mg Tab 50 Mg PO ONCE PRN If a satisfactory response has not been obtained at 2 hours, a second dose may be administered Imitrex (Sumatriptan Succinate) 100 Mg Tab 100 Mg PO ONCE PRN If a satisfactory response has not been obtained at 2 hours, a second dose may be administered Ambien (Zolpidem Tartrate) 5 Mg Tab 5 Mg PO HS PRN Fioricet (Qoaezohkpc-Bbykflwbftxyg-Bgfnedib) 50-300-40 Mg Cap 20 Mg PO Q6H PRN Reported Oxycontin (Oxycodone HCl) 10 Mg Tab 10 Mg PO Q8HR Vitamin E (Vitamin E Mixed) 400 Unit Tablet 400 Units PO DAILY Review of Systems Except as stated in HPI: all other systems reviewed are Neg Physical Exam Narrative GENERAL: Well-developed, thin female in no obvious distress. SKIN: Focused skin assessment warm/dry. HEAD: Atraumatic. Normocephalic. EYES: Pupils equal and round. No scleral icterus. No injection or drainage. ENT: No nasal bleeding or discharge. Mucous membranes pink and moist. NECK: Trachea midline. No JVD. CARDIOVASCULAR: Regular rate and rhythm. No murmur appreciated. RESPIRATORY: No accessory muscle use. Clear to auscultation. Breath sounds equal bilaterally. GASTROINTESTINAL: Abdomen soft, non-tender, nondistended. Hepatic and splenic margins not palpable. MUSCULOSKELETAL: No obvious deformities. No clubbing. No cyanosis. No edema. NEUROLOGICAL: Awake and alert. Cranial nerves II through XII grossly intact and nonfocal, 5 out of 5 strength in all 4 extremities. Cerebellar testing negative, ambulance with an even narrow-base gait. PSYCHIATRIC: Appropriate mood and affect; insight and judgment normal. Data Data Last Documented VS Vital Signs Date Time Temp Pulse Resp B/P (MAP) Pulse Ox O2 Delivery O2 Flow Rate FiO2 08/29/17 06:51 98.5 111 16 180/92 (121) 98 Orders Orders Sumatriptan Inj (Imitrex Inj) (08/29/17 08:00) Wdeu-Pmgno-Zsfp 325-50-40 Mg (Fioricet 3 (08/29/17 08:00) Ed Discharge Order (08/29/17 08:40) MDM Medical Decision Making Medical Screen Exam Complete: Yes Emergency Medical Condition: Yes Differential Diagnosis Headache, migraine headache, cluster headache, acute intracranial pathology highly unlikely. Narrative Course roomed in ED. No red flag s/s. She appears well. medications given, feeling better. Stable for discharge. No indication for additional workup at this time. Neurologically intact, CT scan within one month was negative. Suspicion for meningitis and SAH are very low. Diagnosis Primary Impression: Chronic headache Med/Other Pt SpecificInfo: Prescription(s) given Scripts Sumatriptan Nasal [place] (Imitrex Nasal [place]) 5 Mg/Act [place] 1 SPRAY NASAL ONCE Y for MIGRAINE HEADACHE, #1 BOTTLE 0 Refills [place] in one nostril. If headache has not resolved within 2 hours or returns, the dose may be repeated once after 2 hours Prov: Wilmer Hyman MD 08/29/17 Disposition: 01 DISCHARGE HOME Condition: Stable Wilmer Hyman MD Aug 29, 2017 07:51
[2017-08-29] MEDS ORDERED: ACETAMIN 325 MG/BUTALBITAL 50 MG/CAFFEINE 40 MG TAB PO ONE (08:00)
[2017-08-29] MEDS ORDERED: SUMAtriptan INJ 6 MG/0.5 ML VIAL SQ ONE (08:00)
[2017-08-29] MEDS ORDERED: SUMA5I NASAL (08:40)
== END 2017-08-29 08:55 | disposition home or self-care (01) ==
LOC: NEPC 06:19
DX: R51 Headache (principal); G89.29 Other chronic pain; I10 Essential (primary) hypertension; F41.9 Anxiety disorder, unspecified; F32.9 Major depressive disorder, single episode, unspecified; I25.2 Old myocardial infarction; Z86.73 Personal history of transient ischemic attack (TIA), and cerebral infarction without residual deficits
CPT/HCPCS: 96372; 99283; J3030

== ENCOUNTER 2017-09-18 06:38 | Inpatient (IN) | payer BC ==
[2017-09-18] VITALS (11 sets, daily range): BP systolic 133–165; BP diastolic 77–89; PULSE 86–116; RESP 16–20; TEMP 97.8–102.3; O2SAT 95–100
[~2017-09-18] VITALS: Ht 157.5 cm; Wt 46.3 kg
[~2017-09-18 06:38] MED LIST changes: +SUMA5I NASAL
[2017-09-18] MEDS ORDERED: SODIUM CHLOR 0.9% 1000 ML INJ 1,000 ML IV ONE (07:21)
[2017-09-18] MEDS ORDERED: SODIUM CHLOR 0.9% 1000 ML INJ 800 ML IV ONE (07:21)
[2017-09-18] MEDS: HYDROmorphone HCL PF 2 MG/ML VIAL ONE ×2 (07:29→07:39)
[2017-09-18] MEDS ORDERED: HYDROmorphone HCL PF 1 MG/ML VIAL IV PUSH ONE ×2 (07:30→09:45)
[2017-09-18] MEDS ORDERED: ACETAMINOPHEN 325 MG TAB PO ONE (07:30)
--- NOTE | 2017-09-18 07:38 | PD ---
HPI Chief Complaint: Back/ Neck Pain or Injury Time Seen by Provider: 07:20 Travel History International Travel<30 days: No Contact w/Intl Traveler<30days: No Traveled to known affect area: No History of Present Illness HPI Patient is a 57-year-old female, well-known to this ED, who comes in complaining of throat pain, back pain, and cough. She says this is been going on for a week. She has had fevers at home. She says she took Tylenol without relief of her symptoms. She also says that she has been treated for UTI since last Wednesday with Cipro. She says she still feels like she has a urinary tract infection. She denies nausea or vomiting. She denies any injury. Severity is mild to moderate. PFSH Past Medical History Hx Anticoagulant Therapy: No Asthma: No Blood Disorders: No Anxiety: Yes Depression: Yes Heart Rhythm Problems: No Cancer: Yes (KIDNEY ) Cardiovascular Problems: Yes ([place] 2004) High Cholesterol: No Chemotherapy: No Chest Pain: No Congestive Heart Failure: No COPD: No Cerebrovascular Accident: Yes (2004) Diabetes: No Diminished Hearing: No Endocrine: No Gastrointestinal Disorders: Yes (GASTRECTOMY, CHRONIC ABDOMINAL PAIN ) GERD: No Genitourinary: Yes (OCCASSIONAL UTI) Headaches: Yes Hiatal Hernia: Yes Hypertension: Yes Immune Disorder: No Implanted Vascular Access Dvce: No Kidney Stones: No Musculoskeletal: No Neurologic: Yes (CVA 2004) Psychiatric: No Reproductive: No Respiratory: No Immunizations Current: Yes Migraines: Yes Myocardial Infarction: Yes (2004) Pneumonia: Yes Radiation Therapy: No Renal Failure: No Seizures: Yes Sleep Apnea: No Thyroid Disease: No Ulcer: No Menopausal: Yes : 1 Para: 1 Miscarriage: 0 : 0 Ectopic : No Ovarian Cysts: No Dilation and Curettage (D&C): Yes Tubal Ligation: Yes Past Surgical History Abdominal Surgery: Yes (total gastrectomy w/pouch 2002, hernia repair) Appendectomy: Yes Cardiac Surgery: Yes (REPAIRED HOLE IN HEART) Cholecystectomy: Yes Genitourinary Surgery: Yes (RIGHT NEPHRECTOMY) Gynecologic Surgery: Yes Hysterectomy: No Thoracic Surgery: No Tonsillectomy: Yes Other Surgery: Yes (GASTRECTOMY, RIGHT KIDNEY REMOVAL, HERNIA REPAIR, GALLBLADDER, TONSILS) Social History Alcohol Use: No ( ) Tobacco Use: No ( ) Substance Use: No ( ) Allergies-Medications (Allergen,Severity, Reaction): Coded Allergies: MRI PRECAUTION (Verified Allergy, Severe, MRI contrast allergy, 09/18/17) anaphylaxis Sulfa (Sulfonamide Antibiotics) (Verified Allergy, Severe, Rash, 09/18/17) gadobenic acid (Verified Allergy, Severe, Anaphylaxis, 09/18/17) gadodiamide (Verified Allergy, Severe, Anaphylaxis, 09/18/17) gadoteridol (Verified Allergy, Severe, Anaphylaxis, 09/18/17) ketorolac (Verified Allergy, Severe, Shortness of Breath, 09/18/17) metoclopramide (Verified Allergy, Severe, Shortness of Breath, 09/18/17) morphine (Verified Allergy, Severe, Hives, 09/18/17) ondansetron (Verified Allergy, Severe, Shortness of Breath, 09/18/17) penicillin G (Verified Allergy, Severe, Rash, 09/18/17) prochlorperazine (Verified Allergy, Severe, Shortness of Breath, 09/18/17) promethazine (Verified Allergy, Severe, Shortness of Breath, 09/18/17) shellfish derived (Verified Allergy, Severe, Anaphylaxis, 09/18/17) trimethobenzamide (Verified Allergy, Severe, Shortness of Breath, 09/18/17) Reported Meds & Prescriptions Reported Meds & Active Scripts Active Imitrex Nasal Tenafly (Sumatriptan Succinate) 5 Mg/Act Tenafly 1 Tenafly NASAL ONCE PRN Tenafly in one nostril. If headache has not resolved within 2 hours or returns, the dose may be repeated once after 2 hours Imitrex (Sumatriptan Succinate) 50 Mg Tab 50 Mg PO ONCE PRN If a satisfactory response has not been obtained at 2 hours, a second dose may be administered Imitrex (Sumatriptan Succinate) 100 Mg Tab 100 Mg PO ONCE PRN If a satisfactory response has not been obtained at 2 hours, a second dose may be administered Ambien (Zolpidem Tartrate) 5 Mg Tab 5 Mg PO HS PRN Fioricet (Vjwccutpyy-Pxuqsfuiiqqwy-Agzpzvti) 50-300-40 Mg Cap 20 Mg PO Q6H PRN Reported Oxycontin (Oxycodone HCl) 10 Mg Tab 10 Mg PO Q8HR Vitamin E (Vitamin E Mixed) 400 Unit Tablet 400 Units PO DAILY Review of Systems Except as stated in HPI: all other systems reviewed are Neg General / Constitutional: Positive: Fever, Chills HENT: No: Headaches Cardiovascular: No: Chest Pain or Discomfort Respiratory: Positive: Cough, No: Shortness of Breath Genitourinary: Positive: Dysuria Musculoskeletal: Positive: Pain Skin: No Rash, No Change in Pigmentation Neurologic: No: Weakness, Dizziness Physical Exam Narrative GENERAL: Awake and alert, no acute distress. SKIN: Focused skin assessment warm/dry. HEAD: Atraumatic. Normocephalic. EYES: Pupils equal and round. No scleral icterus. No injection or drainage. ENT: No tonsillar swelling or exudates. Mucous membranes pink and moist. NECK: Trachea midline. No JVD. CARDIOVASCULAR: Regular rate and rhythm. No murmur appreciated. RESPIRATORY: No accessory muscle use. Clear to auscultation. Breath sounds equal bilaterally. GASTROINTESTINAL: Abdomen soft, nondistended. Mild tenderness to the lower abdomen. No rebound or guarding. MUSCULOSKELETAL: No obvious deformities. No clubbing. No cyanosis. No edema. No spinal tenderness to palpation. NEUROLOGICAL: Awake and alert. No obvious cranial nerve deficits. Motor grossly within normal limits. Normal speech. PSYCHIATRIC: Appropriate mood and affect; insight and judgment normal. Data Data Last Documented VS Vital Signs Date Time Temp Pulse Resp B/P (MAP) Pulse Ox O2 Delivery O2 Flow Rate FiO2 09/18/17 09:13 99.1 92 18 134/86 (102) 98 Room Air 2.00 Orders Orders Complete Blood Count With Diff (09/18/17 07:21) Comprehensive Metabolic Panel (09/18/17 07:21) Prothrombin Time / Inr (Pt) (09/18/17 07:21) Act Partial Throm Time (Ptt) (09/18/17 07:21) Lactic Acid Sepsis Protocol (09/18/17 07:21) Urinalysis - C+S If Indicated (09/18/17 07:21) Influenzae A/B Antigen (09/18/17 07:21) Blood Culture (09/18/17 07:21) Chest, Single Ap (09/18/17 07:21) Blood Glucose (09/18/17 07:21) Ecg Monitoring (09/18/17 07:21) Iv Access Insert/Monitor (09/18/17 07:21) Oximetry (09/18/17 07:21) Oxygen Administration (09/18/17 07:21) Acetaminophen (Tylenol) (09/18/17 07:30) Hydromorphone Pf Inj (Dilaudid Pf Inj) (09/18/17 07:30) Ct Abd/Pel W/O Iv Contrast (09/18/17 07:21) Sodium Chlor 0.9% 1000 Ml Inj (Ns 1000 M (09/18/17 07:21) Sodium Chlor 0.9% 1000 Ml Inj (Ns 1000 M (09/18/17 07:21) Hydromorphone Pf Inj (Dilaudid Pf Inj) (09/18/17 07:29) Ceftriaxone Inj (Rocephin Inj) (09/18/17 08:45) Azithromycin Inj (Zithromax Inj) (09/18/17 08:45) Urine Culture (09/18/17 08:41) Hydromorphone Pf Inj (Dilaudid Pf Inj) (09/18/17 09:45) Hydromorphone Pf Inj (Dilaudid Pf Inj) (09/18/17 09:54) Admit Order (Ed Use Only) (09/18/17 ) Labs Laboratory Tests Test 09/18/17 07:41 09/18/17 08:41 White Blood Count 8.2 TH/MM3 Red Blood Count 3.26 MIL/MM3 Hemoglobin 11.0 GM/DL Hematocrit 32.7 % Mean Corpuscular Volume 100.3 FL Mean Corpuscular Hemoglobin 33.8 PG Mean Corpuscular Hemoglobin Concent 33.7 % Red Cell Distribution Width 15.4 % Platelet Count 157 TH/MM3 Mean Platelet Volume 9.1 FL Neutrophils (%) (Auto) 81.2 % Lymphocytes (%) (Auto) 9.1 % Monocytes (%) (Auto) 9.4 % Eosinophils (%) (Auto) 0.2 % Basophils (%) (Auto) 0.1 % Neutrophils # (Auto) 6.6 TH/MM3 Lymphocytes # (Auto) 0.7 TH/MM3 Monocytes # (Auto) 0.8 TH/MM3 Eosinophils # (Auto) 0.0 TH/MM3 Basophils # (Auto) 0.0 TH/MM3 CBC Comment DIFF FINAL Differential Comment Prothrombin Time 10.1 SEC Prothromb Time International Ratio 1.0 RATIO Activated Partial Thromboplast Time 32.1 SEC Blood Urea Nitrogen 13 MG/DL Creatinine 0.86 MG/DL Random Glucose 135 MG/DL Total Protein 6.9 GM/DL Albumin 2.8 GM/DL Calcium Level 8.6 MG/DL Alkaline Phosphatase 106 U/L Aspartate Amino Transf (AST/SGOT) 216 U/L Alanine Aminotransferase (ALT/SGPT) 113 U/L Total Bilirubin 0.4 MG/DL Sodium Level 137 MEQ/L Potassium Level 4.3 MEQ/L Chloride Level 102 MEQ/L Carbon Dioxide Level 26.4 MEQ/L Anion Gap 9 MEQ/L Estimat Glomerular Filtration Rate 68 ML/MIN Lactic Acid Level 1.3 mmol/L Urine Color YELLOW Urine Turbidity HAZY Urine pH 6.0 Urine Specific [place] 1.026 Urine Protein 100 mg/dL Urine Glucose (UA) NEG mg/dL Urine Ketones 10 mg/dL Urine Occult Blood MOD Urine Nitrite NEG Urine Bilirubin NEG Urine Urobilinogen LESS THAN 2.0 MG/DL Urine Leukocyte Esterase TRACE Urine RBC 14 /hpf Urine WBC 5 /hpf Urine Squamous Epithelial Cells 3 /hpf Urine Bacteria FEW /hpf Urine Mucus FEW /lpf Microscopic Urinalysis Comment CATH-CULTURE IND MDM Medical Decision Making Medical Screen Exam Complete: Yes Emergency Medical Condition: Yes Medical Record Reviewed: Yes Differential Diagnosis sepsis vs pneumonia vs UTI Narrative Course Patient is a 57 year old female who comes in complaining of neck and back pain. IV established labs sent. Labs concerning for UTI. Patient is febrile and tachycardic. Treated with antibiotics and given pain medicine. Admitted for management of urosepsis. Last 24 hours Impressions Chest X-Ray 09/18/17720 Signed Impressions: Service Date/Time: Monday, September 18, 2017 07:54 - CONCLUSION: New airspace disease leftt lung. Ash Chinchilla MD FACR Abdomen/Pelvis CT [id number] Signed Impressions: Service Date/Time: Monday, September 18, 2017 08:48 - CONCLUSION: Severely limited exam the lateral intravenous contrast. Status post right nephrectomy and partial gastrectomy Moderate distention of the bladder Stool throughout the colon without free air or abscess. The patient remains symptomatic repeat exam with oral and intravenous contrast would be of benefit. Ash Chinchilla MD FACR Diagnosis Primary Impression: UTI (urinary tract infection) Qualified Codes: N30.00 - Acute cystitis without hematuria Additional Impression: Sepsis Qualified Codes: A41.9 - Sepsis, unspecified organism Admitting Information Admitting Physician Requests: it Meera Taylor MD Sep 18, 2017 07:38
--- NOTE | 2017-09-18 08:23 | RADRPT ---
EXAM DATE/TIME: 09/18/2017 07:54 [facility] COMPARISON: CHEST SINGLE AP, May 02, 2017, 22:25. INDICATIONS : Fever. Cough and back pain. MEDICAL HISTORY : Seizures. Kidney cancer, CVA, HTN SURGICAL HISTORY : Appendectomy. Cholecystectomy. Hysterectomy. ENCOUNTER: Initial ACUITY: 3 days PAIN SCORE: 5/10 LOCATION: Bilateral chest FINDINGS: New developing airspace disease in the left lung. Right lung clear. The heart and pulmonary vascular ity are normal. The portion of the bony skeleton visualized is unremarkable. CONCLUSION: New airspace disease leftt lung. Ash Chinchilla MD FACR on September 18, 2017 at 8:20 Board Certified Radiologist. This report was verified electronically.
[2017-09-18 08:36] LABS: AUTOMATED NEUTROPHIL # 6.6 TH/MM3 (1.8-7.7); BASOPHIL % 0.1 % (0.0-2.0); EOSINOPHIL % 0.2 % (0.0-4.0); HEMATOCRIT 32.7 % (35.0-46.0); LYMPH % 9.1 % (9.0-44.0); LYMPHOCYTE # 0.7 TH/MM3 (1.0-4.8); MEAN CELL VOLUME 100.3 FL (80.0-100.0); MEAN CORPUSCULAR HEMOGLOBIN 33.8 PG (27.0-34.0); MEAN CORPUSCULAR HGB CONC 33.7 % (32.0-36.0); MEAN PLATELET VOLUME 9.1 FL (7.0-11.0); MONO % 9.4 % (0.0-8.0); MONOCYTE # 0.8 TH/MM3 (0-0.9); NEUT % 81.2 % (16.0-70.0); PLATELET COUNT 157 TH/MM3 (150-450); RED BLOOD COUNT 3.26 MIL/MM3 (4.00-5.30); RED CELL DISTRIBUTION WIDTH 15.4 % (11.6-17.2); WHITE BLOOD COUNT 8.2 TH/MM3 (4.0-11.0)
[2017-09-18 08:41] LABS: PROTHROMBIN TIME - PATIENT 10.1 SEC (9.8-11.6)
[2017-09-18] MEDS ORDERED: cefTRIAXone INJ 1,000 MG in SODIUM CHLORIDE 0.9% INJ 100 ML IV ONE (08:45)
[2017-09-18] MEDS ORDERED: AZITHROMYCIN INJ 500 MG in SODIUM CHLOR 0.9% 250 ML INJ 250 ML IV ONE (08:45)
[2017-09-18 08:50] LABS: ALBUMIN 2.8 GM/DL (3.4-5.0); AST (GOT) 216 U/L (15-37); BICARBONATE 26.4 MEQ/L (21.0-32.0); BLOOD UREA NITROGEN 13 MG/DL (7-18); CALCIUM 8.6 MG/DL (8.5-10.1); CHLORIDE 102 MEQ/L (98-107); CREATININE 0.86 MG/DL (0.50-1.00); GLOMERULAR FILTRATION RATE 68 ML/MIN (>89); GLUCOSE,RANDOM 135 MG/DL (74-106); SODIUM (NA) 137 MEQ/L (136-145)
[2017-09-18 08:52] LABS: ALKALINE PHOSPHATASE 106 U/L (45-117); ALT (GPT) 113 U/L (10-53); TOTAL BILIRUBIN ADULT 0.4 MG/DL (0.2-1.0); TOTAL PROTEIN 6.9 GM/DL (6.4-8.2)
--- NOTE | 2017-09-18 09:06 | RADRPT ---
EXAM DATE/TIME: 09/18/2017 08:48 [facility] COMPARISON: CT ABDOMEN & PELVIS W/O CONTRAST, May 30, 2016, 13:06. INDICATIONS : Lower abdomen pain today. ORAL CONTRAST: No oral contrast ingested. RADIATION DOSE: 4.52 CTDIvol (mGy) MEDICAL HISTORY : Hernia, hiatal. Myocardial infarction. renal cancer SURGICAL HISTORY : Nephrectomy, right. gastrectomy, cholecystectomy ENCOUNTER: Initial ACUITY: 1 day PAIN SCALE: 7/10 LOCATION: Bilateral lower quadrant TECHNIQUE: Volumetric scanning of the abdomen and pelvis was performed. Using automated exposure control and ad justment of the mA and/or kV according to patient size, radiation dose was kept as low as reasonably achievable to obtain optimal diagnostic quality images. DICOM format image data is available electro nically for review and comparison. FINDINGS: Patchy airspace disease left lung base without fluid. Right lung clear. Mild compensated cardiomegaly Liver and gallbladder are unremarkable Pancreas and spleen appear normal Patient is status post right nephrectomy and partial gastrectomy. The left kidney appears normal. T here is no myopathy. Lack of oral and intravenous contrast makes detection somewhat difficult. There is no abscess or giovana e air. Bladder is distended. Review of bone windows reveals only degenerative changes. CONCLUSION: Severely limited exam the lateral intravenous contrast. Status post right nephrectom y and partial gastrectomy Moderate distention of the bladder Stool throughout the colon without free air or abscess. The patient remains symptomatic repeat exam with oral and intravenous contrast would be of benefit. Ash Chinchilla MD FACR on September 18, 2017 at 9:02 Board Certified Radiologist. This report was verified electronically.
[2017-09-18 09:24] LABS: BACTERIA, URINE FEW /hpf; BILIRUBIN, URINE NEG (NEG); BLOOD, URINE MOD (NEG); GLUCOSE,URINE NEG (NEG); KETONE, URINE 10 mg/dL (NEG); MUCUS URINE FEW /lpf (OCC); NITRITE,URINE NEG (NEG); SQUAMOUS EPITHELIAL CELL URINE 3 /hpf (0-5); URINE COLOR YELLOW (YELLW/STRAW); URINE LEUKOCYTE ESTERASE TRACE (NEG)
[2017-09-18] MEDS ORDERED: HYDROmorphone HCL PF 2 MG/ML VIAL ONE (09:54)
[2017-09-18] MEDS ORDERED: SODIUM CHLORIDE 0.9% FLUSH 10 ML FLUSH IV FLUSH PRN (10:30)
[2017-09-18] MEDS ORDERED: LACTULOSE SYRUP 20 GM/30 ML CUP PO PRN (10:30)
[2017-09-18] MEDS ORDERED: MAGNESIUM HYDROXIDE SUSP 30 ML CUP PO PRN (10:30)
[2017-09-18] MEDS ORDERED: METOCLOPRAMIDE HCL 10 MG/2 ML VIAL IV PUSH PRN (10:30)
[2017-09-18] MEDS ORDERED: NALOXONE HCL 0.4 MG/ML AMP IV PUSH PRN (10:30)
[2017-09-18] MEDS ORDERED: BISACODYL 10 MG SUPP RECTAL PRN (10:30)
[2017-09-18] MEDS ORDERED: ACETAMINOPHEN/HYDROcodone 325 MG/5 MG TAB PO PRN (10:30)
[2017-09-18] MEDS ORDERED: RESP: ALBUTEROL 2.5 MG/IPRATROPIUM 0.5 MG NEB (PRN) NEB (10:30)
[2017-09-18] MEDS ORDERED: SENNOSIDES 8.6 MG TAB PO PRN (10:30)
[2017-09-18] MEDS ORDERED: ACETAMINOPHEN 325 MG TAB PO PRN ×2 (10:30)
--- NOTE | 2017-09-18 13:17 | HHI.HP ---
HPI Service [facility] Primary Care Physician Mildred Tanner MD Admission Diagnosis pneumonia, uti Diagnoses: (1) Sepsis (2) Community acquired bacterial pneumonia (3) UTI (urinary tract infection) (4) Chronic narcotic dependence Chief Complaint: Sore throat and cough production Travel History International Travel<30 Days: No Contact w/Intl Traveler <30 Da: No Traveled to Known Affected Are: No Sepsis Criteria SIRS Criteria (2 or more): Temp > 100.9 or < 96.8, Heart rate over 90 Sepsis Criteria (SIRS+source): Infect source susp/known History of Present Illness 57-year-old female with PMH of Anxiety, Depression, Renal Cell CA s/p Nephrectomy, h/o Gastrectomy on TPN, Narcotic Dependence and h/o CVA who presented to the ER w/ complaints of sore throat, cough production times several day duration along with subjective fevers. She states her symptoms initially started on September 13, 2017 when she started not feeling well. She initially had dry cough however it became productive on September 15. She also complained of shortness of breath as well as chest pain mostly with coughing. Chest x-ray in ED revealed new airspace disease in left lung. Patient consistently asking for narcotics. She also reported increase urinary frequency with burning with urination. She has been recently diagnosed with UTI but 9 days ago. Review of Systems Except as stated in HPI: all other systems reviewed are Neg Past Family Social History Past Medical History Anxiety, Depression, Renal Cell CA s/p Nephrectomy, h/o Gastrectomy on TPN, Narcotic Dependence and h/o CVA Past Surgical History Total Gastrectomy, Hernia Repair, Appendectomy, Cardiac Surgery, Cholecystectomy , Right Nephrectomy, Tonsillectomy Reported Medications Imitrex Nasal [place] (Sumatriptan Succinate) 5 Mg/Act [place] 1 [place] NASAL ONCE PRN [place] in one nostril. If headache has not resolved within 2 hours or returns, the dose may be repeated once after 2 hours Imitrex (Sumatriptan Succinate) 50 Mg Tab 50 Mg PO ONCE PRN If a satisfactory response has not been obtained at 2 hours, a second dose may be administered Imitrex (Sumatriptan Succinate) 100 Mg Tab 100 Mg PO ONCE PRN If a satisfactory response has not been obtained at 2 hours, a second dose may be administered Ambien (Zolpidem Tartrate) 5 Mg Tab 5 Mg PO HS PRN Fioricet (Eoptpaefnu-Mxuyoklwrpmdb-Egvicnkd) 50-300-40 Mg Cap 20 Mg PO Q6H PRN Reported Oxycontin (Oxycodone HCl) 10 Mg Tab 10 Mg PO Q8HR Vitamin E (Vitamin E Mixed) 400 Unit Tablet 400 Units PO DAILY Allergies: Coded Allergies: MRI PRECAUTION (Verified Allergy, Severe, MRI contrast allergy, 09/18/17) anaphylaxis Sulfa (Sulfonamide Antibiotics) (Verified Allergy, Severe, Rash, 09/18/17) gadobenic acid (Verified Allergy, Severe, Anaphylaxis, 09/18/17) gadodiamide (Verified Allergy, Severe, Anaphylaxis, 09/18/17) gadoteridol (Verified Allergy, Severe, Anaphylaxis, 09/18/17) ketorolac (Verified Allergy, Severe, Shortness of Breath, 09/18/17) metoclopramide (Verified Allergy, Severe, Shortness of Breath, 09/18/17) morphine (Verified Allergy, Severe, Hives, 09/18/17) ondansetron (Verified Allergy, Severe, Shortness of Breath, 09/18/17) penicillin G (Verified Allergy, Severe, Rash, 09/18/17) prochlorperazine (Verified Allergy, Severe, Shortness of Breath, 09/18/17) promethazine (Verified Allergy, Severe, Shortness of Breath, 09/18/17) shellfish derived (Verified Allergy, Severe, Anaphylaxis, 09/18/17) trimethobenzamide (Verified Allergy, Severe, Shortness of Breath, 09/18/17) Family History COPD Social History Alcohol Use: No ( ) Tobacco Use: No ( ) Substance Use: No ( ) Physical Exam Vital Signs Vital Signs Date Time Temp Pulse Resp B/P (MAP) Pulse Ox O2 Delivery O2 Flow Rate FiO2 09/18/17 12:30 99.4 86 20 159/87 (111) 100 09/18/17 11:27 98.1 91 18 133/84 (100) 99 Nasal Cannula 2.00 09/18/17 11:12 98.3 89 17 133/84 (100) 100 Nasal Cannula 3.00 09/18/17 10:28 17 09/18/17 10:28 17 09/18/17 09:13 99.1 92 18 134/86 (102) 98 Room Air 2.00 09/18/17 08:11 18 09/18/17 08:11 18 09/18/17 07:41 99 Nasal Cannula 2.00 09/18/17 07:41 18 98 Room Air 09/18/17 07:26 102.2 100 16 147/77 (100) 96 Nasal Cannula 2.00 09/18/17 07:10 108 16 09/18/17 06:43 102.3 116 18 136/82 (100) 95 Physical Exam GENERAL: This is a well-nourished, well-developed patient, in no apparent distress. SKIN: No rashes, ecchymoses or lesions. Cool and dry. HEAD: Atraumatic. Normocephalic. No temporal or scalp tenderness. EYES: Pupils equal round and reactive. Extraocular motions intact. No scleral icterus. No injection or drainage. ENT: Nose without bleeding, purulent drainage or septal hematoma. Throat without erythema, tonsillar hypertrophy or exudate. Uvula midline. Airway patent. NECK: Trachea midline. No JVD or lymphadenopathy. Supple, nontender, no meningeal signs. CARDIOVASCULAR: Regular rate and rhythm without murmurs, gallops, or rubs. RESPIRATORY: Clear to auscultation. Breath sounds equal bilaterally. No wheezes , rales, or rhonchi. GASTROINTESTINAL: Abdomen soft, non-tender, nondistended. No hepato-splenomegaly , or palpable masses. No guarding. MUSCULOSKELETAL: Extremities without clubbing, cyanosis, or edema. No joint tenderness, effusion, or edema noted. No calf tenderness. Negative Homans sign bilaterally. NEUROLOGICAL: Awake and alert. Cranial nerves II through XII intact. Motor and sensory grossly within normal limits. Five out of 5 muscle strength in all muscle groups. Normal speech. Laboratory Laboratory Tests Test 09/18/17 07:41 09/18/17 08:41 09/18/17 10:50 White Blood Count 8.2 Red Blood Count 3.26 Hemoglobin 11.0 Hematocrit 32.7 Mean Corpuscular Volume 100.3 Mean Corpuscular Hemoglobin 33.8 Mean Corpuscular Hemoglobin Concent 33.7 Red Cell Distribution Width 15.4 Platelet Count 157 Mean Platelet Volume 9.1 Neutrophils (%) (Auto) 81.2 Lymphocytes (%) (Auto) 9.1 Monocytes (%) (Auto) 9.4 Eosinophils (%) (Auto) 0.2 Basophils (%) (Auto) 0.1 Neutrophils # (Auto) 6.6 Lymphocytes # (Auto) 0.7 Monocytes # (Auto) 0.8 Eosinophils # (Auto) 0.0 Basophils # (Auto) 0.0 CBC Comment DIFF FINAL Differential Comment Prothrombin Time 10.1 Prothromb Time International Ratio 1.0 Activated Partial Thromboplast Time 32.1 Blood Urea Nitrogen 13 Creatinine 0.86 Random Glucose 135 Total Protein 6.9 Albumin 2.8 Calcium Level 8.6 Alkaline Phosphatase 106 Aspartate Amino Transf (AST/SGOT) 216 Alanine Aminotransferase (ALT/SGPT) 113 Total Bilirubin 0.4 Sodium Level 137 Potassium Level 4.3 Chloride Level 102 Carbon Dioxide Level 26.4 Anion Gap 9 Estimat Glomerular Filtration Rate 68 Lactic Acid Level 1.3 Urine Color YELLOW Urine Turbidity HAZY Urine pH 6.0 Urine Specific [place] 1.026 Urine Protein 100 Urine Glucose (UA) NEG Urine Ketones 10 Urine Occult Blood MOD Urine Nitrite NEG Urine Bilirubin NEG Urine Urobilinogen LESS THAN 2.0 Urine Leukocyte Esterase TRACE Urine RBC 14 Urine WBC 5 Urine Squamous Epithelial Cells 3 Urine Bacteria FEW Urine Mucus FEW Microscopic Urinalysis Comment CATH-CULTURE IND Hepatitis A IgM Antibody NONREACTIVE Hepatitis B Surface Antigen NONREACTIVE Hepatitis B Core IgM Antibody NONREACTIVE Hepatitis C IgG Antibody NONREACTIVE Date/Time Source Procedure Growth Status 09/18/17 07:51 Blood Peripheral Aerobic Blood Culture Pending Received 09/18/17 07:51 Blood Peripheral Anaerobic Blood Culture Pending Received 09/18/17 07:41 Nasal Washing Influenza Types A,B Antigen (MARIANNA) - Final NEGATIVE FOR FLU A AND B ANTIGEN.... Complete 09/18/17 08:41 Urine Catheterized Urine Urine Culture Pending Received Result Diagram: 09/18/1774009/18/17740 Imaging Last Impressions Chest X-Ray 09/18/17720 Signed Impressions: Service Date/Time: Monday, September 18, 2017 07:54 - CONCLUSION: New airspace disease leftt lung. Ash Chinchilla MD FACR Abdomen/Pelvis CT 09/18/17720 Signed Impressions: Service Date/Time: Monday, September 18, 2017 08:48 - CONCLUSION: Severely limited exam the lateral intravenous contrast. Status post right nephrectomy and partial gastrectomy Moderate distention of the bladder Stool throughout the colon without free air or abscess. The patient remains symptomatic repeat exam with oral and intravenous contrast would be of benefit. Ash Chinchilla MD FACR Septic Shock Reassessment Septic shock perfusion: reassessment completed Caprini VTE Risk Assessment Caprini VTE Risk Assessment: No/Low Risk (score <= 1) Caprini Risk Assessment Model Point Value = 1 Point Value = 2 Point Value = 3 Point Value = 5 Age 41-60 Minor surgery BMI > 25 kg/m2 Swollen legs Varicose veins or History of unexplained or recurrent spontaneous Oral contraceptives or hormone replacement Sepsis (< 1 month) Serious lung disease, including pneumonia (< 1 month) Abnormal pulmonary function Acute myocardial infarction Congestive heart failure (< 1 month) History of inflammatory bowel disease Medical patient at bed rest Age 61-74 Arthroscopic surgery Major open surgery (> 45 min) Laparoscopic surgery (> 45 min) Malignancy Confined to bed (> 72 hours) Immobilizing plaster cast Central venous access Age >= 75 History of VTE Family history of VTE Factor V Leiden Prothrombin [id number] Lupus anticoagulant Anticardiolipin antibodies Elevated serum homocysteine Heparin-induced thrombocytopenia Other congenital or acquired thrombophilia Stroke (< 1 month) Elective arthroplasty Hip, pelvis, or leg fracture Acute spinal cord injury (< 1 month) Prophylaxis Regimen Total Risk Factor Score Risk Level Prophylaxis Regimen 0-1 Low Early ambulation 2 Moderate Order ONE of the following: *Sequential Compression Device (SCD) *Heparin 5000 units SQ BID 3-4 Higher Order ONE of the following medications: *Heparin 5000 units SQ TID *Enoxaparin/Lovenox 40 mg SQ daily (WT < 150 kg, CrCl > 30 mL/min) *Enoxaparin/Lovenox 30 mg SQ daily (WT < 150 kg, CrCl > 10-29 mL/min) *Enoxaparin/Lovenox 30 mg SQ BID (WT < 150 kg, CrCl > 30 mL/min) AND/OR *Sequential Compression Device (SCD) 5 or more Highest Order ONE of the following medications: *Heparin 5000 units SQ TID (Preferred with Epidurals) *Enoxaparin/Lovenox 40 mg SQ daily (WT < 150 kg, CrCl > 30 mL/min) *Enoxaparin/Lovenox 30 mg SQ daily (WT < 150 kg, CrCl > 10-29 mL/min) *Enoxaparin/Lovenox 30 mg SQ BID (WT < 150 kg, CrCl > 30 mL/min) AND *Sequential Compression Device (SCD) Assessment and Plan Problem List: (1) Sepsis ICD Code: A41.9 - Sepsis, unspecified organism (2) Community acquired bacterial pneumonia ICD Code: J15.9 - Unspecified bacterial pneumonia (3) UTI (urinary tract infection) ICD Code: N39.0 - Urinary tract infection, site not specified Status: Acute (4) Chronic narcotic dependence ICD Code: F11.20 - Opioid dependence, uncomplicated Status: Acute Assessment and Plan 57-year-old female with Sepsis: Temp > 100.9 or < 96.8, Heart rate over 90; Infect source susp/known ( PNA + UTI); Lactic acid wnl Status post Rocephin and azithromycin IV 1, will continue cefepime IV every 8 hour pending culture report Community-acquired bacterial pneumonia Chest x-ray noted and reviewed by me with finding of new airspace disease in left lung Status post Rocephin and azithromycin IV 1 in ED, with start cefepime 2 g IV every 8 hour Maintain oxygen saturation above 92% DuoNeb as needed Abnormal UA Status post Rocephin IV 1, treated with cefepime pending urine culture Chronic narcotics dependence Resume OxyContin 10 mg q. 8 DVT prophylaxis: Bilateral SCDs Code Status Full code Discussed Condition With Patient, ED position Physician Certification 2 Midnight Certification Type: Admission for Inpatient Services Order for Inpatient Services The services are ordered in accordance with Medicare regulations or non- Medicare payer requirements, as applicable. In the case of services not specified as inpatient-only, they are appropriately provided as inpatient services in accordance with the 2-midnight benchmark. Estimated LOS (days): 2 days is the estimated time the patient will need to remain in the hospital, assuming treatment plan goals are met and no additional complications. Post-Hospital Plan: Not yet determined Zuhair Lindsey MD Sep 18, 2017 13:17
[2017-09-18] MEDS: CEFEPIME INJ 2,000 MG in SODIUM CHLORIDE 0.9% INJ 100 ML IV SCH (16:24)
[2017-09-18] MEDS: oxyCODONE HCL 10 MG CONTROLLED RELEASE TAB PO SCH ×2 (16:24→22:27)
[2017-09-18] MEDS: LACTOBACILLUS ACIDOPHILUS TAB PO SCH (20:06)
[2017-09-18] MEDS: DOCUSATE SODIUM 50 MG/SENNA 8.6 MG TAB PO SCH (20:06)
[2017-09-18] MEDS: SODIUM CHLORIDE 0.9% FLUSH 10 ML FLUSH IV FLUSH SCH (20:06)
[2017-09-19] VITALS (7 sets, daily range): BP systolic 144–162; BP diastolic 85–95; PULSE 75–92; RESP 18; TEMP 97.9–99; O2SAT 97–100
[2017-09-19] MEDS: CEFEPIME INJ 2,000 MG in SODIUM CHLORIDE 0.9% INJ 100 ML IV SCH ×3 (01:36→15:54)
[2017-09-19] MEDS: oxyCODONE HCL 10 MG CONTROLLED RELEASE TAB PO SCH ×3 (05:31→20:35)
[2017-09-19 08:11] LABS: AUTOMATED NEUTROPHIL # 4.8 TH/MM3 (1.8-7.7); BASOPHIL % 0.2 % (0.0-2.0); EOSINOPHIL # 0.1 TH/MM3 (0-0.4); EOSINOPHIL % 0.9 % (0.0-4.0); HEMATOCRIT 32.8 % (35.0-46.0); HEMOGLOBIN 11.1 GM/DL (11.6-15.3); LYMPH % 10.8 % (9.0-44.0); LYMPHOCYTE # 0.7 TH/MM3 (1.0-4.8); MEAN CELL VOLUME 98.8 FL (80.0-100.0); MEAN CORPUSCULAR HEMOGLOBIN 33.5 PG (27.0-34.0); MEAN CORPUSCULAR HGB CONC 33.9 % (32.0-36.0); MONO % 8.6 % (0.0-8.0); MONOCYTE # 0.5 TH/MM3 (0-0.9); NEUT % 79.5 % (16.0-70.0); PLATELET COUNT 163 TH/MM3 (150-450); RED BLOOD COUNT 3.32 MIL/MM3 (4.00-5.30); RED CELL DISTRIBUTION WIDTH 15.1 % (11.6-17.2)
[2017-09-19] MEDS: SODIUM CHLORIDE 0.9% FLUSH 10 ML FLUSH IV FLUSH SCH ×2 (08:24→20:36)
[2017-09-19] MEDS: LACTOBACILLUS ACIDOPHILUS TAB PO SCH ×2 (08:25→20:39)
[2017-09-19] MEDS: DOCUSATE SODIUM 50 MG/SENNA 8.6 MG TAB PO SCH ×2 (08:25→20:39)
[2017-09-19 08:59] LABS: ALBUMIN 2.6 GM/DL (3.4-5.0); ALKALINE PHOSPHATASE 103 U/L (45-117); ALT (GPT) 103 U/L (10-53); AST (GOT) 152 U/L (15-37); BICARBONATE 28.1 MEQ/L (21.0-32.0); BLOOD UREA NITROGEN 5 MG/DL (7-18); CALCIUM 9.3 MG/DL (8.5-10.1); CHLORIDE 98 MEQ/L (98-107); GLOMERULAR FILTRATION RATE 127 ML/MIN (>89); GLUCOSE,RANDOM 101 MG/DL (74-106); SODIUM (NA) 136 MEQ/L (136-145); TOTAL BILIRUBIN ADULT 0.5 MG/DL (0.2-1.0)
[2017-09-19] MEDS ORDERED: POTASSIUM CHLORIDE 10 MEQ CONTROLLED RELEASE TAB PO ONE (10:45)
--- NOTE | 2017-09-19 10:48 | HHI.PR ---
Subjective Remarks Follow-up sepsis/community acquired bacterial pneumonia/UTI/chronic pain syndrome September 19, 2017-patient seen and examined, spike temp overnight however currently afebrile. Complaint of generalized pain. Denies any chest pain. Still with throat pain. Objective Vitals Vital Signs Date Time Temp Pulse Resp B/P (MAP) Pulse Ox O2 Delivery O2 Flow Rate FiO2 09/19/17 08:21 98.2 91 18 144/88 (106) 97 09/19/17 05:30 98.3 09/19/17 05:07 99.0 88 18 152/90 (110) 100 09/19/17 01:13 98.8 92 18 162/89 (113) 99 09/18/17 21:35 98 Nasal Cannula 2.00 09/18/17 21:23 100.3 101 18 148/81 (103) 97 09/18/17 16:13 100.0 95 20 165/89 (114) 100 09/18/17 14:38 98 Nasal Cannula 2.00 09/18/17 12:30 99.4 86 20 159/87 (111) 100 09/18/17 11:27 98.1 91 18 133/84 (100) 99 Nasal Cannula 2.00 09/18/17 11:12 98.3 89 17 133/84 (100) 100 Nasal Cannula 3.00 I/O 09/18/17 09/18/17 09/18/17 09/19/17 09/19/17 09/19/17 06:59 14:59 22:59 06:59 14:59 22:59 Intake Total 2350 ml 100 ml 100 ml Balance 2350 ml 100 ml 100 ml Intake IV Total 2350 ml 100 ml 100 ml # Voids 1 3 2 # Bowel Movements 0 Result Diagram: 09/19/1770309/19/17703 Imaging Last Impressions Chest X-Ray 09/18/17720 Signed Impressions: Service Date/Time: Monday, September 18, 2017 07:54 - CONCLUSION: New airspace disease leftt lung. Ash Chinchilla MD FACR Abdomen/Pelvis CT 09/18/17720 Signed Impressions: Service Date/Time: Monday, September 18, 2017 08:48 - CONCLUSION: Severely limited exam the lateral intravenous contrast. Status post right nephrectomy and partial gastrectomy Moderate distention of the bladder Stool throughout the colon without free air or abscess. The patient remains symptomatic repeat exam with oral and intravenous contrast would be of benefit. Ash Chinchilla MD FACR Objective Remarks GENERAL: NAD SKIN: Warm and dry. HEAD: Normocephalic. EYES: No scleral icterus. No injection or drainage. NECK: Supple, trachea midline. No JVD or lymphadenopathy. CARDIOVASCULAR: Regular rate and rhythm without murmurs, gallops, or rubs. RESPIRATORY: Breath sounds equal bilaterally. No accessory muscle use. GASTROINTESTINAL: Abdomen soft, non-tender, nondistended. MUSCULOSKELETAL: No cyanosis, or edema. BACK: Nontender without obvious deformity. No CVA tenderness. A/P Problem List: (1) Sepsis ICD Code: A41.9 - Sepsis, unspecified organism (2) Community acquired bacterial pneumonia ICD Code: J15.9 - Unspecified bacterial pneumonia (3) UTI (urinary tract infection) ICD Code: N39.0 - Urinary tract infection, site not specified Status: Acute (4) Chronic narcotic dependence ICD Code: F11.20 - Opioid dependence, uncomplicated Status: Acute Assessment and Plan 57-year-old female with 57-year-old female with Sepsis: Temp > 100.9 or < 96.8, Heart rate over 90; Infect source susp/known ( PNA + UTI); Lactic acid wnl Status post Rocephin and azithromycin IV 1, continue cefepime IV every 8 hour pending culture report Community-acquired bacterial pneumonia Chest x-ray noted and reviewed by me with finding of new airspace disease in left lung Status post Rocephin and azithromycin IV 1 in ED; currently on cefepime 2 g IV every 8 hour Maintain oxygen saturation above 92% DuoNeb as needed Abnormal UA Status post Rocephin IV 1; currently on cefepime pending urine culture Chronic narcotics dependence Continue OxyContin 10 mg q. 8 Hypokalemia Give potassium 60 mEq 1 now and monitor electrolytes Transaminitis Hepatitis profile negative LFTs trending down DVT prophylaxis: Bilateral SCDs Zuhair Lindsey MD Sep 19, 2017 10:48
[2017-09-19] MEDS ORDERED: POTASSIUM CHLORIDE 25 MEQ EFFERVESCENT TAB PO ONE (11:30)
[2017-09-19] MEDS ORDERED: ZOLPIDEM TARTRATE 5 MG TAB PO PRN (21:00)
[2017-09-20] VITALS: BP 146/80; PULSE 80; RESP 18; TEMP 98.7; O2SAT 98
[2017-09-20] MEDS: CEFEPIME INJ 2,000 MG in SODIUM CHLORIDE 0.9% INJ 100 ML IV SCH (02:04)
[2017-09-20] MEDS ORDERED: EPINEPHrine HCL (1:10,000) 1 MG/10 ML SYRINGE ONE (04:57)
--- NOTE | 2017-09-20 06:02 | PD.PROCEDR ---
Procedure Note Procedure Date: 09/20/17 Procedure: Cardiopulmonary resucitation Indication: Asystolic cardiac arrest Details of procedure: I responded to CODE BLUE. Patient is admitted for UTI and pneumonia. She had been on nasal cannula. The nurse had hung cefepime approximately 30 minutes prior and when tech went in to check vital signs patient was cyanotic and pulseless. She was placed on the Zoll and was found to be in asystole. ACLS was initiated. Patient was intubated by the RT prior to my arrival. Breath sounds were auscultated bilaterally. Patient received multiple doses of epinephrine, 1 amp calcium chloride. Glucose was 79. She was given 1 amp of D50. I performed bedside ultrasound and there was sliding lung sign bilaterally which was consistent with absence of pneumothorax. ABG was obtained and demonstrated pH of 6.9/PCO2 of 50/PO2 129. Bedside echo demonstrated cardiac standstill with biventricular thrombus. After 30 minutes of resuscitation we were unable to restore spontaneous circulation. Pt was pronounced at 05: 05 hours. I notified the patient's , Edson Alcala. He states that he was going to come into the hospital. I have updated the nurses on the floor that he anticipates coming in. Xochilt Huang MD Sep 20, 2017 06:02
[2017-09-20] MEDS ORDERED: EPINEPHrine HCL (1:10,000) 1 MG/10 ML SYRINGE IV ONE (09:44)
--- NOTE | 2017-09-20 10:44 | HHI.DS ---
Discharge Summary Admission Date Sep 18, 2017 at 09:56 Discharge Date: Sep 20, 2017 Admitting Diagnosis pneumonia, uti (1) Sepsis ICD Code: A41.9 - Sepsis, unspecified organism (2) Community acquired bacterial pneumonia ICD Code: J15.9 - Unspecified bacterial pneumonia (3) UTI (urinary tract infection) ICD Code: N39.0 - Urinary tract infection, site not specified Status: Acute (4) Chronic narcotic dependence ICD Code: F11.20 - Opioid dependence, uncomplicated Status: Acute Brief History - From Admission 57-year-old female with PMH of Anxiety, Depression, Renal Cell CA s/p Nephrectomy, h/o Gastrectomy on TPN, Narcotic Dependence and h/o CVA who presented to the ER w/ complaints of sore throat, cough production times several day duration along with subjective fevers. She states her symptoms initially started on September 13, 2017 when she started not feeling well. She initially had dry cough however it became productive on September 15. She also complained of shortness of breath as well as chest pain mostly with coughing. Chest x-ray in ED revealed new airspace disease in left lung. Patient consistently asking for narcotics. She also reported increase urinary frequency with burning with urination. She has been recently diagnosed with UTI but 9 days ago. CBC/BMP: 09/19/17 0704 09/19/17 0704 Significant Findings Laboratory Tests Test 09/18/17 07:41 09/18/17 08:41 09/18/17 10:50 09/19/17 07:04 Red Blood Count 3.26 MIL/MM3 (4.00-5.30) 3.32 MIL/MM3 (4.00-5.30) Hemoglobin 11.0 GM/DL (11.6-15.3) 11.1 GM/DL (11.6-15.3) Hematocrit 32.7 % (35.0-46.0) 32.8 % (35.0-46.0) Mean Corpuscular Volume 100.3 FL (80.0-100.0) Neutrophils (%) (Auto) 81.2 % (16.0-70.0) 79.5 % (16.0-70.0) Monocytes (%) (Auto) 9.4 % (0.0-8.0) 8.6 % (0.0-8.0) Lymphocytes # (Auto) 0.7 TH/MM3 (1.0-4.8) 0.7 TH/MM3 (1.0-4.8) Activated Partial Thromboplast Time 32.1 SEC (24.3-30.1) Random Glucose 135 MG/DL (74-106) Albumin 2.8 GM/DL (3.4-5.0) 2.6 GM/DL (3.4-5.0) Aspartate Amino Transf (AST/SGOT) 216 U/L (15-37) 152 U/L (15-37) Alanine Aminotransferase (ALT/SGPT) 113 U/L (10-53) 103 U/L (10-53) Estimat Glomerular Filtration Rate 68 ML/MIN (>89) Urine Turbidity HAZY (CLEAR) Urine Protein 100 mg/dL (NEG-TRACE) Urine Ketones 10 mg/dL (NEG) Urine Occult Blood MOD (NEG) Urine Leukocyte Esterase TRACE (NEG) Urine RBC 14 /hpf (0-3) Urine Bacteria FEW /hpf (NONE) Urine Mucus FEW /lpf (OCC) Blood Urea Nitrogen 5 MG/DL (7-18) Potassium Level 3.0 MEQ/L (3.5-5.1) Test 09/20/17 04:50 Blood Gas HCO3 9 mmol/L (22-26) Blood Gas Base Excess -20.8 mmol/L (-2-2) Arterial Blood pH 6.90 (7.380-7.420) Arterial Blood Partial Pressure CO2 50 mmHg (38-42) Arterial Blood Partial Pressure O2 129 mmHg (61-120) Blood Gas Hemoglobin 11.2 G/DL (12.0-16.0) Imaging Last Impressions Chest X-Ray 09/18/17720 Signed Impressions: Service Date/Time: Monday, September 18, 2017 07:54 - CONCLUSION: New airspace disease leftt lung. Ash Chinchilla MD FACR Abdomen/Pelvis CT 09/18/17720 Signed Impressions: Service Date/Time: Monday, September 18, 2017 08:48 - CONCLUSION: Severely limited exam the lateral intravenous contrast. Status post right nephrectomy and partial gastrectomy Moderate distention of the bladder Stool throughout the colon without free air or abscess. The patient remains symptomatic repeat exam with oral and intravenous contrast would be of benefit. Ash Chinchilla MD FACR PE at Discharge GENERAL: NAD SKIN: Warm and dry. HEAD: Normocephalic. EYES: No scleral icterus. No injection or drainage. NECK: Supple, trachea midline. No JVD or lymphadenopathy. CARDIOVASCULAR: Regular rate and rhythm without murmurs, gallops, or rubs. RESPIRATORY: Breath sounds equal bilaterally. No accessory muscle use. GASTROINTESTINAL: Abdomen soft, non-tender, nondistended. MUSCULOSKELETAL: No cyanosis, or edema. BACK: Nontender without obvious deformity. No CVA tenderness. Hospital Course Prior to expiring, she was treated for: Sepsis: Temp > 100.9 or < 96.8, Heart rate over 90; Infect source susp/known ( PNA + UTI); Lactic acid wnl Status post Rocephin and azithromycin IV 1, Treated with cefepime IV every 8 hour pending culture report Community-acquired bacterial pneumonia Chest x-ray noted and reviewed by me with finding of new airspace disease in left lung Status post Rocephin and azithromycin IV 1 in ED; Treated with cefepime 2 g IV every 8 hour Maintain oxygen saturation above 92% DuoNeb as needed Abnormal UA Status post Rocephin IV 1; Treated with cefepime pending urine culture Chronic narcotics dependence Treated with OxyContin 10 mg q. 8 Hypokalemia Give potassium 60 mEq 1 now and monitor electrolytes Transaminitis Hepatitis profile negative LFTs trending down DVT prophylaxis: Bilateral SCDs Pt Condition on Discharge: Guarded Discharge Disposition: Discharge Home Discharge Time: > 30 minutes Zuhair Lindsey MD Sep 20, 2017 10:44
--- NOTE | 2017-09-20 10:45 | HHI.DS ---
Summary Note Date of : Sep 20, 2017 Time Of : 0505 Admission Date Sep 18, 2017 at 09:56 Admitting Diagnosis pneumonia, uti Diagnosis at Time of : (1) Sepsis ICD Code: A41.9 - Sepsis, unspecified organism (2) Community acquired bacterial pneumonia ICD Code: J15.9 - Unspecified bacterial pneumonia (3) UTI (urinary tract infection) ICD Code: N39.0 - Urinary tract infection, site not specified (4) Chronic narcotic dependence ICD Code: F11.20 - Opioid dependence, uncomplicated Brief History 57-year-old female with PMH of Anxiety, Depression, Renal Cell CA s/p Nephrectomy, h/o Gastrectomy on TPN, Narcotic Dependence and h/o CVA who presented to the ER w/ complaints of sore throat, cough production times several day duration along with subjective fevers. She states her symptoms initially started on September 13, 2017 when she started not feeling well. She initially had dry cough however it became productive on September 15. She also complained of shortness of breath as well as chest pain mostly with coughing. Chest x-ray in ED revealed new airspace disease in left lung. Patient consistently asking for narcotics. She also reported increase urinary frequency with burning with urination. She has been recently diagnosed with UTI but 9 days ago. CBC/BMP: 09/19/17 0704 09/19/17 0704 Significant Findings Laboratory Tests Test 09/18/17 07:41 09/18/17 08:41 09/18/17 10:50 09/19/17 07:04 Red Blood Count 3.26 MIL/MM3 (4.00-5.30) 3.32 MIL/MM3 (4.00-5.30) Hemoglobin 11.0 GM/DL (11.6-15.3) 11.1 GM/DL (11.6-15.3) Hematocrit 32.7 % (35.0-46.0) 32.8 % (35.0-46.0) Mean Corpuscular Volume 100.3 FL (80.0-100.0) Neutrophils (%) (Auto) 81.2 % (16.0-70.0) 79.5 % (16.0-70.0) Monocytes (%) (Auto) 9.4 % (0.0-8.0) 8.6 % (0.0-8.0) Lymphocytes # (Auto) 0.7 TH/MM3 (1.0-4.8) 0.7 TH/MM3 (1.0-4.8) Activated Partial Thromboplast Time 32.1 SEC (24.3-30.1) Random Glucose 135 MG/DL (74-106) Albumin 2.8 GM/DL (3.4-5.0) 2.6 GM/DL (3.4-5.0) Aspartate Amino Transf (AST/SGOT) 216 U/L (15-37) 152 U/L (15-37) Alanine Aminotransferase (ALT/SGPT) 113 U/L (10-53) 103 U/L (10-53) Estimat Glomerular Filtration Rate 68 ML/MIN (>89) Urine Turbidity HAZY (CLEAR) Urine Protein 100 mg/dL (NEG-TRACE) Urine Ketones 10 mg/dL (NEG) Urine Occult Blood MOD (NEG) Urine Leukocyte Esterase TRACE (NEG) Urine RBC 14 /hpf (0-3) Urine Bacteria FEW /hpf (NONE) Urine Mucus FEW /lpf (OCC) Blood Urea Nitrogen 5 MG/DL (7-18) Potassium Level 3.0 MEQ/L (3.5-5.1) Test 09/20/17 04:50 Blood Gas HCO3 9 mmol/L (22-26) Blood Gas Base Excess -20.8 mmol/L (-2-2) Arterial Blood pH 6.90 (7.380-7.420) Arterial Blood Partial Pressure CO2 50 mmHg (38-42) Arterial Blood Partial Pressure O2 129 mmHg (61-120) Blood Gas Hemoglobin 11.2 G/DL (12.0-16.0) Imaging Last Impressions Chest X-Ray 09/18/17720 Signed Impressions: Service Date/Time: Monday, September 18, 2017 07:54 - CONCLUSION: New airspace disease leftt lung. Ash Chinchilla MD [facility] Abdomen/Pelvis CT 09/18/17720 Signed Impressions: Service Date/Time: Monday, September 18, 2017 08:48 - CONCLUSION: Severely limited exam the lateral intravenous contrast. Status post right nephrectomy and partial gastrectomy Moderate distention of the bladder Stool throughout the colon without free air or abscess. The patient remains symptomatic repeat exam with oral and intravenous contrast would be of benefit. Ash Chinchilla MD [facility] Hospital Course Prior to expiring, she was treated for: Sepsis: Temp > 100.9 or < 96.8, Heart rate over 90; Infect source susp/known ( PNA + UTI); Lactic acid wnl Status post Rocephin and azithromycin IV 1, Treated with cefepime IV every 8 hour pending culture report Community-acquired bacterial pneumonia Chest x-ray noted and reviewed by me with finding of new airspace disease in left lung Status post Rocephin and azithromycin IV 1 in ED; Treated with cefepime 2 g IV every 8 hour Maintain oxygen saturation above 92% DuoNeb as needed Abnormal UA Status post Rocephin IV 1; Treated with cefepime pending urine culture Chronic narcotics dependence Treated with OxyContin 10 mg q. 8 Hypokalemia Give potassium 60 mEq 1 now and monitor electrolytes Transaminitis Hepatitis profile negative LFTs trending down DVT prophylaxis: Bilateral SCDs Zuhair Lindsey MD Sep 20, 2017 10:45
== END 2017-09-20 09:45 | disposition expired | DRG 296 ==
LOC: NEPE 06:38 → NEDA 09:56 → N05B 11:59
PROVIDERS: ADMIT Hospitalist; ATTEND Hospitalist
DX: I46.9 Cardiac arrest, cause unspecified (principal); A41.9 Sepsis, unspecified organism; J15.9 Unspecified bacterial pneumonia; N39.0 Urinary tract infection, site not specified; F11.20 Opioid dependence, uncomplicated; M54.2 Cervicalgia; M54.9 Dorsalgia, unspecified; J02.9 Acute pharyngitis, unspecified; G43.909 Migraine, unspecified, not intractable, without status migrainosus; E87.6 Hypokalemia; R74.0 Nonspecific elevation of levels of transaminase and lactic acid dehydrogenase [LDH]; G89.4 Chronic pain syndrome; I10 Essential (primary) hypertension; Z86.73 Personal history of transient ischemic attack (TIA), and cerebral infarction without residual deficits; I25.2 Old myocardial infarction; Z90.5 Acquired absence of kidney; Z90.3 Acquired absence of stomach [part of]; Z85.528 Personal history of other malignant neoplasm of kidney
CPT/HCPCS: 31500; 36600; 71045; 74176; 80053; 80074; 81001; 82805; 83605; 85025; 85610; 85730; 87040; 87086; 87804; 92950; 94664; 96361; 96365; 96367; 96375; J0171; J0456; J0692; J0696; J1170; J7030; J7050